=== PATIENT | female | born 1970 | race Caucasian/White ===

== ENCOUNTER → 2019-10-28 | Outpatient (CLI) | payer OTHER ==
[~2019-10-28] MED LIST: ATEN-155 PO; CYCL10TA9 PO; GLPZ5T PO; LEVE1U SQ; NAPR-1071 PO; NAPR550T PO; PRM25T PO; SITA100T PO
--- NOTE | 2019-10-28 13:12 | Diagnostic Imaging Report ---
INDICATION: Left breast lumps. Comparison is made with prior mammogram from 03/24/2014 and 03/18/2013. 2-D and 3-D bilateral diagnostic mammography was performed with CAD. BB markers were placed at the area of palpable abnormality in the upper and outer aspect of the left breast. Scattered fibroglandular densities are identified bilaterally. The parenchymal pattern is stable. No mass or malignant appearing microcalcifications are seen. Axillae are unremarkable. IMPRESSION: BI-RADS 0 No mammographic features suspicious for malignancy are identified. Sonographic interrogation of the areas of palpable abnormality in the left breast is recommended and will be performed today. ACR BI-RADS Category 0: Incomplete. (Needs additional imaging evaluation). Result letter will be mailed to the patient. Note: At least 10% of breast cancer is not imaged by mammography. Dictated by: Dictated on workstation # [id number]
--- NOTE | 2019-10-28 13:53 | Diagnostic Imaging Report ---
INDICATION: Palpable lump, left breast. CORRELATION is made with diagnostic mammogram earlier the same day. Sonographic interrogation of 2 separate regions of lump in the left breast was performed. Both are laterally located. The retroareolar region was also evaluated. No sonographic abnormality is seen. No solid or cystic mass is detected. IMPRESSION: BI-RADS Category 1. No sonographic abnormality is detected. ACR BI-RADS Category 1: Negative. Result letter will be mailed to the patient. Note: At least 10% of breast cancer is not imaged by mammography. Dictated by: Dictated on workstation # [id number]
== END ==
LOC: RAD 12:14
PROVIDERS: ATTEND Nurse Practitioner Community Health
DX: N63.20 Unspecified lump in the left breast, unspecified quadrant (principal)
CPT/HCPCS: 76642; 77066

== ENCOUNTER 2019-11-01 20:16 | Emergency (ER) | payer SELFPAY ==
[~2019-11-01] VITALS: Ht 160 cm; Wt 89.8 kg
[~2019-11-01 20:16] MED LIST changes: -NAPR-1071 PO
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
--- OUTSIDE RECORDS SUMMARY | 2019-11-01 20:24 | XMS REPORT ---
Author Author Nyasia GALDAMEZ Organization [facility] Address [address] [place] [address] Care Team Providers Care Anesthetic Assistant Name Role Phone FADIA GALDAMEZ Unavailable PROBLEMS Type Condition ICD9-CM Code PLV84-KE Code Onset Dates Condition S tatus SNOMED Code Problem Grief reaction F43.21 Active 45866 5009 Problem Hyperlipidemia E78.5 Active 22725 004 Problem Type 2 diabetes mellitus without complications E11 .9 Active 79679231 Problem Essential hypertension I10 Active [id number] ALLERGIES No Information ENCOUNTERS Encounter Location Date Diagnosis [place] [address] [address] Oct, [facility] [address] [address] Sep, [facility] [address] [address] Sep, Breast pain, left N64.4 and Type 2 diabe yoanna mellitus without complications E11.9 [place] [address] [address] Sep, [facility] [address] [address] Sep, [facility] [address] [address] 07 Sep, 2019 Vaginal irritation N89.8 and Screening f or cervical cancer Z12.4 [place] [address] [address] Jul, [place] [address] [address] Jun, Encounter for immunization Z23 [place] [address] [address] Mar, Type 2 diabetes mellitus without complic ations E11.9 [place] [address] [address] December, Insect bite (nonvenomous), left thigh, i nitial encounter S70.362A ; Local infection of the skin and subcutaneous tissue, unspecified L08.9 and Bitten or stung by nonvenomous insect and other nonvenomous arthropods, initial encounter W57.XXXA [place] [address] [address] December, [place] [address] [address] Nov, [place] [address] [address] Nov, [place] [address] [address] Oct, URI (upper respiratory infection) J06.9 ; Type 2 diabetes mellitus without complications E11.9 and Hyperlipidemia E78.5 [place] [address] [address] Aug, [place] [address] [address] Jun, Acute nasopharyngitis J00 [place] [address] [address] May, Encounter for immunization Z23 [place] [address] [address] Apr, [place] [address] [address] Apr, Type 2 diabetes mellitus without complic ations E11.9 [place] [address] [address] Apr, Type 2 diabetes mellitus without complic ations E11.9 ; Grief reaction F43.21 and Essential hypertension I10 [place] [address] [place] [id number] [place] [address] Mar, Type 2 diabetes mellitus without complic ations E11.9 [facility] [address] [id number] [place] [address] Mar, Type 2 diabetes mellitus without complic ations E11.9 [facility] [address] [place] [address] [id number] [place] [address] Feb, [facility] [address] [place] [id number] [place] [address] Jan, [facility] [address] [place] [address] [id number] [place] [address] Nov, Type 2 diabetes mellitus without complic ations E11.9 [facility] [address] [place] [address] [id number] [place] [address] Oct, [facility] [address] [place] [address] [id number] [place] [address] Oct, Labia irritation N90.89 [facility] [address] [id number] [place] [address] Sep, [facility] [address] [place] [address] [id number] [place] [address] Sep, [facility] [address] [address] [id number] [place] [address] Sep, [facility] [address] [id number] [place] [address] Aug, [facility] [address] [place] [address] [id number] [place] [address] Jul, [facility] [address] [place] [address] [id number] [place] [address] Jul, [facility] [address] [address] [id number] [place] [address] Mar, Type 2 diabetes mellitus without complic ations E11.9 ; Acute pain of right knee M25.561 and Essential hypertension I10 [facility] [address] [address] Mar, [place] [address] [address] Mar, Dysuria R30.0 [place] [address] [address] December, [place] [address] [address] Nov, [place] [address] [address] Nov, Dental examination Z01.20 [place] [address] [address] Nov, Dental examination Z01.20 [place] [address] [address] Nov, Non-intractable vomiting with nausea, un specified vomiting type R11.2 ; Arthralgia, unspecified joint M25.50 ; Fever, unspecified fever cause R50.9 ; Type 2 diabetes mellitus without complications E11.9 and Tooth pain K08.89 [place] [address] [address] Nov, Type 2 diabetes mellitus without complic ations E11.9 [place] [address] [address] Nov, Type 2 diabetes mellitus without complic ations E11.9 and Bronchitis J40 [place] [address] [address] Oct, Type 2 diabetes mellitus without complic ations E11.9 [place] [address] [address] Jul, [place] [address] [address] Jul, Dysuria R30.0 ; Hematuria R31.9 and Vagi nal pain R10.2 [place] [address] [address] Jul, Dysuria R30.0 ; Vaginal discharge N89.8 and Low back strain, initial encounter S39.012A [facility] [address] [place] [id number] [place] [address] Jun, Bacterial conjunctivitis of right eye H1 0.9 ; Sore throat J02.9 and Acute non-recurrent maxillary sinusitis J01.00 [facility] [address] [place] [id number] [place] [address] Jun, [facility] [address] [address] May, [facility] [address] [address] Apr, [facility] [address] [address] Apr, [facility] [address] [address] Apr, [facility] [address] [place] [id number] [place] [address] Apr, Type 2 diabetes mellitus without complic ations E11.9 [facility] [address] [place] [id number] [place] [address] Mar, [facility] [address] [place] [id number] [place] [address] Feb, Bronchitis J40 [facility] [address] [address] [id number] [place] [address] Feb, Bronchitis J40 [facility] [address] [place] [id number] [place] [address] Feb, Type 2 diabetes mellitus without complic ations E11.9 [facility] [address] [place] [id number] [place] [address] Feb, [facility] [address] [address] [id number] [place] [address] Feb, [facility] [address] [place] [address] Feb, Type 2 diabetes mellitus without complic ations E11.9 and Dysuria R30.0 [place] [address] [place] [id number] [place] [address] Jan, Type 2 diabetes mellitus without complic ations E11.9 [place] [address] [address] 14 Jan, 2016 Type 2 diabetes mellitus without complic ations E11.9 [place] [address] [address] December, Type 2 diabetes mellitus without complic ations E11.9 [place] [address] [address] Nov, Type 2 diabetes mellitus without complic ations E11.9 [place] [address] [address] Oct, Type 2 diabetes mellitus without complic ations E11.9 ; Fever R50.9 ; Myalgia M79.1 and Cough R05 [place] [address] [address] 15 Sep, 2015 Dysuria R30.0 and Cystitis N30.90 [place] [address] [address] Sep, [place] [address] [address] Sep, [facility] [address] [id number] [place] [id number] Aug, Dental examination Z01.20 [place] [address] [address] Aug, Type 2 diabetes mellitus without complic ations E11.9 [place] [address] [address] 07 Jul, 2015 Dysfunction of left eustachian tube H69. 82 [place] [address] [place] [address] [place] [address] Jun, [facility] [address] [address] Jun, Cellulitis L03.90 [facility] [address] [address] Jun, [facility] [address] [address] Jun, [facility] [address] [address] Jun, [place] [address] [address] May, Dermatofibroma of ankle, right D23.71 [place] [address] [address] May, [place] [address] [address] Apr, Diabetes 250.00 and 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 [place] [address] [address] Apr, [place] [address] [address] Apr, [place] [address] [address] Apr, Diabetes 250.00 ; Influenza vaccine admi nistered V04.81 and Allergic rhinitis 477.9 [place] [address] [address] Mar, [place] [address] [address] Jan, [facility] [address] [address] Jan, DM w/o complication type II 250.00 [place] [address] [address] December, DM w/o complication type II 250.00 ; Stephen caneal spur 726.73 ; Vaginitis due to Amanda 112.1 and Onychomycosis 110.1 [facility] [address] [address] 30 Nov, 2014 Amanda infection of genital region 112. 2 [facility] [address] [address] 14 Nov, 2014 [facility] [address] [address] Nov, [facility] [address] [address] Oct, [facility] [address] [address] Oct, [facility] [address] [address] Sep, [facility] [address] [address] Sep, [facility] [address] [address] Jul, [facility] [address] [address] Jul, [facility] [address] [address] Jun, [facility] [address] [address] Jun, [facility] [address] [address] Jun, [facility] [address] [address] Jun, [facility] [address] [address] May, [facility] [address] [address] May, [facility] [address] [id number] [place] [address] May, [facility] [address] [facility] [id number] [place] [address] May, [facility] [address] [facility] [id number] [place] [address] Apr, [facility] [address] [facility] [id number] [place] [address] Apr, [facility] [address] [facility] [id number] [place] [address] Apr, [facility] [address] [facility] [id number] [place] [address] Apr, [facility] [address] [id number] [place] [address] Mar, [facility] [address] [id number] [place] [address] Mar, [facility] [address] [id number] [place] [address] Mar, [facility] [address] [id number] [place] [address] Mar, [facility] [address] [id number] [place] [address] Mar, [facility] [address] [id number] [place] [address] Mar, [facility] [address] [id number] [place] [address] Mar, [facility] [address] [facility] [id number] [place] [address] Mar, [facility] [address] [id number] [place] [address] Mar, [facility] [address] [id number] [place] [address] Mar, [facility] [address] [id number] [place] [address] Mar, [facility] [address] [id number] [place] [address] Mar, [facility] [address] [facility] [id number] [place] [address] Feb, [facility] [address] [facility] [id number] [place] [address] Feb, [facility] [address] [id number] [place] [address] Jan, [facility] [address] [facility] [id number] [place] [address] Jan, [facility] [address] [id number] [place] [address] Jan, [facility] [address] [id number] [place] [address] Jan, [facility] [address] [id number] [place] [address] December, [facility] [address] [facility] [id number] [place] [address] December, [facility] [address] [id number] [place] [address] December, [facility] [address] [id number] [place] [address] December, [facility] [address] [id number] [place] [address] Nov, [facility] [address] [facility] [id number] [place] [address] Nov, [facility] [address] [id number] [place] [address] Nov, [facility] [address] [id number] [place] [address] Nov, [facility] [address] [id number] [place] [address] Nov, [facility] [address] [id number] [place] [address] Nov, [facility] [address] [facility] [id number] [place] [address] Nov, [facility] [address] [id number] [place] [address] Oct, [facility] [address] [id number] [place] [address] Oct, [facility] [address] [id number] [place] [address] Oct, [facility] [address] [id number] [place] [address] Oct, [facility] [address] [id number] [place] [address] Oct, [facility] [address] [id number] [place] [address] Oct, [facility] [address] [id number] [place] [address] Oct, [facility] [address] [id number] [place] [address] Sep, [facility] [address] [id number] [place] [address] Sep, [facility] [address] [id number] [place] [address] Sep, [facility] [address] [id number] [place] [address] Sep, [facility] [address] [id number] [place] [address] Aug, [facility] [address] [id number] [place] [address] Aug, [facility] [address] [id number] [place] [address] Aug, [facility] [address] [id number] [place] [address] Aug, [facility] [address] [id number] [place] [address] Jul, [facility] [address] [id number] [place] [address] Jul, [facility] [address] [id number] [place] [address] Apr, [facility] [address] [id number] [place] [address] Apr, [facility] [address] [id number] [place] [address] Mar, [facility] [address] [id number] [place] [address] Mar, [facility] [address] [id number] [place] [address] Mar, [facility] [address] [id number] [place] [address] Mar, [facility] [address] [id number] [place] [address] Mar, [facility] [address] [id number] [place] [address] Mar, [facility] [address] [id number] [place] [address] Mar, [facility] [address] [id number] [place] [address] Mar, [facility] [address] [id number] [place] [address] Mar, [facility] [address] [id number] [place] [address] Mar, [facility] [address] [id number] [place] [address] Feb, [facility] [address] [id number] [place] [address] Feb, [facility] [address] [id number] [place] [address] 18 Feb, 2013 [facility] [address] [id number] [place] [address] Feb, [facility] [address] [id number] [place] [address] Jan, [facility] [address] [id number] [place] [address] Nov, [facility] [address] [id number] [place] [address] 16 Nov, 2012 [facility] [address] [id number] [place] [address] Nov, [facility] [address] [id number] [place] [address] Nov, [facility] [address] [id number] [place] [address] Oct, [facility] [address] [id number] [place] [address] Sep, [facility] [address] [id number] [place] [address] Sep, [facility] [address] [id number] [place] [address] Aug, [facility] [address] [id number] [place] [address] Jul, [facility] [address] [id number] [place] [address] Jul, [facility] [address] [id number] [place] [address] May, [facility] [address] [id number] [place] [address] May, [facility] [address] [id number] [place] [address] May, [facility] [address] [id number] [place] [address] May, [facility] [address] [id number] [place] [address] Apr, [facility] [address] [id number] [place] [address] Mar, [facility] [address] [id number] [place] [address] Mar, [facility] [address] [id number] [place] [address] Mar, [facility] [address] [id number] [place] [address] Mar, [facility] [address] [id number] [place] [address] Mar, [facility] [address] [id number] [place] [address] Mar, [facility] [address] [id number] [place] [address] Mar, [facility] [address] [id number] [place] [address] Mar, [facility] [address] [id number] [place] [address] Feb, [facility] [address] [id number] [place] [address] Feb, [facility] [address] [id number] [place] [address] Jan, [facility] [address] [id number] [place] [address] December, [facility] [address] [id number] [place] [address] December, [facility] [address] [id number] [place] [address] Nov, [facility] [address] [id number] [place] [address] Nov, [facility] [address] [id number] [place] [address] Nov, [facility] [address] [id number] [place] [address] 10 Nov, 2011 [facility] [address] [id number] [place] [address] Oct, [facility] [address] [id number] [place] [address] 29 Sep, 2011 [facility] [address] [id number] [place] [address] Sep, [facility] [address] [id number] [place] [address] Sep, [facility] [address] [id number] [place] [address] 17 Sep, 2011 [facility] [address] [id number] [place] [address] 16 Sep, 2011 [facility] [address] [id number] [place] [address] Sep, [facility] [address] [id number] [place] [address] Sep, [facility] [address] [id number] [place] [address] Sep, [facility] [address] [id number] [place] [address] Aug, [facility] [address] [id number] [place] [address] Jul, [facility] [address] [id number] [place] [address] Jul, [facility] [address] [id number] [place] [address] Jul, [facility] [address] [id number] [place] [address] Jun, [facility] [address] [id number] [place] [address] Jul, [facility] [address] [id number] [place] [address] Jul, [facility] [id number] [place] [address] Jul, [facility] [id number] [place] [address] Jul, [facility] [id number] [place] [address] Jul, [facility] [id number] [place] [address] May, [facility] [address] [address] May, [facility] [address] [address] May, [facility] [id number] [place] [address] Apr, [facility] [id number] [place] [address] Jun, [facility] [id number] [place] [address] Jun, [facility] [id number] [place] [address] May, [facility] [address] [place] [id number] [place] [address] Jan, IMMUNIZATIONS No Known Immunizations SOCIAL HISTORY Never Assessed REASON FOR VISIT PLAN OF CARE VITAL SIGNS Height 63 in 2013-09-17 Weight 196.1 lbs 2013-09-17 Temperature 97.1 degrees Fahrenheit 2013-09-17 Heart Rate 74 bpm 2013-09-17 Respiratory Rate 18 2013-09-17 Blood pressure systolic 112 mmHg 2013-09-17 Blood pressure diastolic 74 mmHg 2013-09-17 MEDICATIONS Unknown Medications RESULTS No Results PROCEDURES Procedure Date Ordered Result Body Site URINALYSIS, AUTO, W/O SCOPE Sep 17, 2013 INSTRUCTIONS MEDICATIONS ADMINISTERED No Known Medications [...]
--- OUTSIDE RECORDS SUMMARY | 2019-11-01 20:24 | XMS REPORT ---
Author Author Nyasia RUIZ Organization [facility] Address [address] [place] [address] Care Team Providers Care Financial Services Associate Name Role Phone IRVIN RUIZ Unavailable PROBLEMS Type Condition ICD9-CM Code CYT75-XC Code Onset Dates Condition S tatus SNOMED Code Problem Grief F43.21 Active 747831112 Problem Abnormal mammogram of left breast R92.8 Active 216184153 Problem Type 2 diabetes mellitus without complications E11 .9 Active 11753130 Problem Essential hypertension I10 Active 17860646 Problem Hyperlipidemia E78.5 Active 36254 004 ALLERGIES No Information ENCOUNTERS Encounter Location Date Diagnosis [place] [address] [address] 08 Jan, 2020 [place] [address] [address] Oct, Type 2 diabetes mellitus without complic ations E11.9 [place] [address] [address] 09 Oct, 2019 Type 2 diabetes mellitus without complic ations E11.9 ; Abnormal mammogram of left breast R92.8 and Grief F43.21 [facility] [address] [address] 05 Oct, 2019 [facility] [address] [facility] [id number] [place] [address] Sep, Dysuria R30.0 and Vaginal ir ritation N89.8 [facility] [address] [address] Sep, [facility] [address] [address] Sep, Breast pain, left N64.4 and Type 2 diabe yoanna mellitus without complications E11.9 [place] [address] [address] 12 Sep, 2019 [place] [address] [address] 11 Sep, 2019 [place] [address] [address] 07 Sep, 2019 Vaginal irritation N89.8 and Screening f or cervical cancer Z12.4 [place] [address] [address] Jul, [place] [address] [address] Jun, Encounter for immunization Z23 [place] [address] [address] Mar, Type 2 diabetes mellitus without complic ations E11.9 [place] [address] [address] December, Insect bite (nonvenomous), left thigh, i nitial encounter S70.362A ; Local infection of the skin and subcutaneous tissue, unspecified L08.9 and Bitten or stung by nonvenomous insect and other nonvenomous arthropods, initial encounter W57.XXXA [place] [address] [address] December, [place] [address] [address] Nov, [place] [address] [address] Nov, [place] [address] [address] Oct, URI (upper respiratory infection) J06.9 ; Type 2 diabetes mellitus without complications E11.9 and Hyperlipidemia E78.5 [place] [address] [address] Aug, [facility] [id number] [place] [address] Jun, Acute nasopharyngitis J00 [facility] [address] [address] May, Encounter for immunization Z23 [facility] [address] [address] Apr, [facility] [address] [address] Apr, Type 2 diabetes mellitus without complic ations E11.9 [place] [address] [address] Apr, Type 2 diabetes mellitus without complic ations E11.9 ; Grief reaction F43.21 and Essential hypertension I10 [place] [address] [address] Mar, Type 2 diabetes mellitus without complic ations E11.9 [facility] [address] [address] Mar, Type 2 diabetes mellitus without complic ations E11.9 [place] [address] [address] Feb, [facility] [address] [address] Jan, [facility] [address] [address] Nov, Type 2 diabetes mellitus without complic ations E11.9 [facility] [address] [address] Oct, [facility] [address] [address] Oct, Labia irritation N90.89 [facility] [address] [address] Sep, [facility] [address] [address] Sep, [place] [address] [address] Sep, [place] [address] [address] Aug, [place] [address] [address] Jul, [place] [address] [address] Jul, [place] [address] [address] Mar, Type 2 diabetes mellitus without complic ations E11.9 ; Acute pain of right knee M25.561 and Essential hypertension I10 [place] [address] [address] Mar, [place] [address] [address] Mar, Dysuria R30.0 [place] [address] [address] December, [place] [address] [address] Nov, [place] [address] [address] Nov, Dental examination Z01.20 [place] [address] [address] Nov, Dental examination Z01.20 [place] [address] [address] Nov, Non-intractable vomiting with nausea, un specified vomiting type R11.2 ; Arthralgia, unspecified joint M25.50 ; Fever, unspecified fever cause R50.9 ; Type 2 diabetes mellitus without complications E11.9 and Tooth pain K08.89 [place] [address] [address] Nov, Type 2 diabetes mellitus without complic ations E11.9 [facility] [address] [address] Nov, Type 2 diabetes mellitus without complic ations E11.9 and Bronchitis J40 [place] [address] [address] Oct, Type 2 diabetes mellitus without complic ations E11.9 [place] [address] [address] Jul, [place] [address] [address] Jul, Dysuria R30.0 ; Hematuria R31.9 and Vagi nal pain R10.2 [place] [address] [address] Jul, Dysuria R30.0 ; Vaginal discharge N89.8 and Low back strain, initial encounter S39.012A [place] [address] [address] Jun, Bacterial conjunctivitis of right eye H1 0.9 ; Sore throat J02.9 and Acute non-recurrent maxillary sinusitis J01.00 [place] [address] [address] Jun, [place] [address] [address] May, [facility] [address] [address] Apr, [facility] [address] [address] 14 Apr, 2016 [place] [address] [address] Apr, [place] [address] [address] Apr, Type 2 diabetes mellitus without complic ations E11.9 [place] [address] [place] [id number] [place] [address] Mar, [facility] [address] [address] Feb, Bronchitis J40 [facility] [address] [address] Feb, Bronchitis J40 [facility] [address] [address] Feb, Type 2 diabetes mellitus without complic ations E11.9 [place] [address] [address] Feb, [place] [address] [address] Feb, [place] [address] [address] Feb, Type 2 diabetes mellitus without complic ations E11.9 and Dysuria R30.0 [place] [address] [address] Jan, Type 2 diabetes mellitus without complic ations E11.9 [place] [address] [address] Jan, Type 2 diabetes mellitus without complic ations E11.9 [place] [address] [address] December, Type 2 diabetes mellitus without complic ations E11.9 [place] [address] [address] Nov, Type 2 diabetes mellitus without complic ations E11.9 [place] [address] [address] Oct, Type 2 diabetes mellitus without complic ations E11.9 ; Fever R50.9 ; Myalgia M79.1 and Cough R05 [place] [address] [address] Sep, Dysuria R30.0 and Cystitis N30.90 [facility] [address] [address] Sep, [facility] [address] [address] Sep, [facility] [address] [id number] [place] [id number] Aug, Dental examination Z01.20 [facility] [address] [address] Aug, Type 2 diabetes mellitus without complic ations E11.9 [place] [address] [address] Jul, Dysfunction of left eustachian tube H69. 82 [place] [address] [address] Jun, [facility] [address] [address] Jun, Cellulitis L03.90 [facility] [address] [address] Jun, [place] [address] [address] Jun, [place] [address] [address] Jun, [facility] [address] [address] May, Dermatofibroma of ankle, right D23.71 [facility] [address] [address] May, [place] [address] [address] Apr, Diabetes 250.00 and 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 [place] [address] [address] Apr, [facility] [address] [place] [id number] [place] [address] Apr, [facility] [address] [address] Apr, Diabetes 250.00 ; Influenza vaccine admi nistered V04.81 and Allergic rhinitis 477.9 [facility] [address] [address] Mar, [facility] [address] [address] Jan, [facility] [address] [address] Jan, DM w/o complication type II 250.00 [place] [address] [address] December, DM w/o complication type II 250.00 ; Stephen caneal spur 726.73 ; Vaginitis due to Amanda 112.1 and Onychomycosis 110.1 [place] [address] [address] 30 Nov, 2014 Amanda infection of genital region 112. 2 [place] [address] [address] 14 Nov, 2014 [facility] [address] [address] Nov, [place] [address] [address] Oct, [facility] [address] [address] Oct, [facility] [address] [address] Sep, [facility] [address] [address] Sep, [facility] [address] [address] Jul, [facility] [address] [id number] [place] [address] Jul, [facility] [address] [id number] [place] [address] Jun, [facility] [address] [id number] [place] [address] Jun, [facility] [address] [id number] [place] [address] Jun, [facility] [address] [id number] [place] [address] Jun, [facility] [address] [id number] [place] [address] May, [facility] [address] [id number] [place] [address] May, [facility] [address] [id number] [place] [address] May, [facility] [address] [id number] [place] [address] May, [facility] [address] [id number] [place] [address] Apr, [facility] [address] [id number] [place] [address] Apr, [facility] [address] [id number] [place] [address] Apr, [facility] [address] [id number] [place] [address] Apr, [facility] [address] [id number] [place] [address] Mar, [facility] [address] [id number] [place] [address] Mar, [facility] [address] [id number] [place] [address] Mar, [facility] [address] [id number] [place] [address] Mar, [facility] [address] [facility] [id number] [place] [address] Mar, [facility] [address] [facility] [id number] [place] [address] Mar, [facility] [address] [id number] [place] [address] Mar, [facility] [address] [id number] [place] [address] Mar, [facility] [address] [facility] [id number] [place] [address] Mar, [facility] [address] [id number] [place] [address] Mar, [facility] [address] [id number] [place] [address] Mar, [facility] [address] [id number] [place] [address] Mar, [facility] [address] [id number] [place] [address] Feb, [facility] [address] [id number] [place] [address] Feb, [facility] [address] [id number] [place] [address] Jan, [facility] [address] [id number] [place] [address] Jan, [facility] [address] [id number] [place] [address] Jan, [facility] [address] [id number] [place] [address] Jan, [facility] [address] [id number] [place] [address] December, [facility] [address] [id number] [place] [address] December, [facility] [address] [id number] [place] [address] December, [facility] [address] [facility] [id number] [facility] [place] [address] December, [facility] [address] [facility] [id number] [facility] [place] [address] Nov, [facility] [address] [id number] [facility] [place] [address] Nov, [facility] [address] [facility] [id number] [facility] [place] [address] Nov, [facility] [address] [facility] [id number] [facility] [place] [address] Nov, [facility] [address] [id number] [place] [address] Nov, [facility] [address] [id number] [facility] [place] [address] Nov, [facility] [address] [id number] [place] [address] Nov, [facility] [address] [facility] [id number] [facility] [place] [address] Oct, [facility] [address] [id number] [place] [address] Oct, [facility] [address] [id number] [place] [address] Oct, [facility] [address] [id number] [place] [address] Oct, [facility] [address] [facility] [id number] [facility] [place] [address] Oct, [facility] [address] [id number] [place] [address] Oct, [facility] [address] [id number] [place] [address] Oct, [facility] [address] [id number] [place] [address] Sep, [facility] [address] [id number] [place] [address] 07 Sep, 2013 [facility] [address] [id number] [place] [address] Sep, [facility] [address] [id number] [place] [address] Sep, [facility] [address] [id number] [place] [address] Aug, [facility] [address] [id number] [place] [address] Aug, [facility] [address] [id number] [place] [address] Aug, [facility] [address] [id number] [place] [address] Aug, [facility] [address] [id number] [place] [address] Jul, [facility] [address] [id number] [place] [address] Jul, [facility] [address] [id number] [place] [address] Apr, [facility] [address] [id number] [place] [address] Apr, [facility] [address] [id number] [place] [address] Mar, [facility] [address] [id number] [place] [address] Mar, [facility] [address] [id number] [place] [address] Mar, [facility] [address] [id number] [place] [address] Mar, [facility] [address] [id number] [place] [address] Mar, [facility] [address] [id number] [place] [address] Mar, [facility] [address] [facility] [id number] [facility] [place] [address] Mar, [facility] [address] [facility] [id number] [facility] [place] [address] Mar, [facility] [address] [facility] [id number] [facility] [place] [address] Mar, [facility] [address] [id number] [facility] [place] [address] Mar, [facility] [address] [facility] [id number] [facility] [place] [address] Feb, [facility] [address] [id number] [facility] [place] [address] Feb, [facility] [address] [id number] [place] [address] Feb, [facility] [address] [id number] [place] [address] Feb, [facility] [address] [id number] [place] [address] Jan, [facility] [address] [id number] [place] [address] 25 Nov, 2012 [facility] [address] [id number] [place] [address] 16 Nov, 2012 [facility] [address] [id number] [place] [address] 15 Nov, 2012 [facility] [address] [facility] [id number] [place] [address] Nov, [facility] [address] [id number] [place] [address] Oct, [facility] [address] [id number] [place] [address] Sep, [facility] [address] [id number] [place] [address] Sep, [facility] [address] [id number] [place] [address] Aug, [facility] [address] [id number] [place] [address] Jul, [facility] [address] [id number] [place] [address] Jul, [facility] [address] [id number] [place] [address] May, [facility] [address] [id number] [place] [address] May, [facility] [address] [id number] [place] [address] May, [facility] [address] [id number] [place] [address] May, [facility] [address] [id number] [place] [address] Apr, [facility] [address] [id number] [place] [address] Mar, [facility] [address] [id number] [place] [address] Mar, [facility] [address] [id number] [place] [address] Mar, [facility] [address] [id number] [place] [address] Mar, [facility] [address] [id number] [place] [address] Mar, [facility] [address] [id number] [place] [address] Mar, [facility] [address] [id number] [place] [address] Mar, [facility] [address] [id number] [place] [address] Mar, [facility] [address] [id number] [place] [address] Feb, [facility] [address] [id number] [place] [address] 10 Feb, 2012 [facility] [address] [id number] [place] [address] 08 Jan, 2012 [facility] [address] [id number] [place] [address] December, [facility] [address] [id number] [place] [address] December, [facility] [address] [id number] [place] [address] 23 Nov, 2011 [facility] [address] [id number] [place] [address] Nov, [facility] [address] [id number] [place] [address] 18 Nov, 2011 [facility] [address] [id number] [place] [address] Nov, [facility] [address] [id number] [place] [address] Oct, [facility] [address] [id number] [place] [address] 29 Sep, 2011 [facility] [address] [id number] [place] [address] Sep, [facility] [address] [id number] [place] [address] 17 Sep, 2011 [facility] [address] [id number] [place] [address] 17 Sep, 2011 [facility] [address] [id number] [place] [address] 16 Sep, 2011 [facility] [address] [id number] [place] [address] 16 Sep, 2011 [facility] [address] [id number] [place] [address] 15 Sep, 2011 [facility] [address] [id number] [place] [address] 15 Sep, 2011 [facility] [address] [id number] [place] [address] Aug, [facility] [address] [id number] [place] [address] Jul, [facility] [address] [id number] [place] [address] 14 Jul, 2011 [facility] [address] [id number] [place] [address] 14 Jul, 2011 [facility] [address] [id number] [place] [address] Jun, [facility] [address] [id number] [place] [address] Jul, [facility] [address] [id number] [place] [address] Jul, [facility] [address] [id number] [place] [address] 16 Jul, 2010 [facility] [address] [id number] [place] [address] Jul, [facility] [address] [id number] [place] [address] Jul, [facility] [address] [id number] [place] [address] May, [facility] [address] [id number] [place] [address] May, [facility] [address] [id number] [place] [address] May, [facility] [address] [id number] [place] [address] 15 Apr, 2010 [facility] [address] [id number] [place] [address] Jun, [facility] [address] [id number] [place] [address] Jun, [facility] [address] [facility] [id number] [place] [address] May, [facility] [address] [facility] [id number] [place] [address] Jan, IMMUNIZATIONS No Known Immunizations SOCIAL HISTORY Never Assessed REASON FOR VISIT PLAN OF CARE VITAL SIGNS MEDICATIONS Unknown Medications RESULTS No Results PROCEDURES No Known procedures INSTRUCTIONS MEDICATIONS ADMINISTERED No Known Medications MEDICAL (GENERAL) HISTORY Type Description Date Medical History heart murmur Medical History irregular heart beat Medical History muscle around heart is too thick Medical History chronic bronchitis Medical History diabetes mellitus Surgical History tubal ligation 1993 Surgical History dilatation and curettage 1992 Surgical History tumor removal left leg Hospitalization History [facility] 03/2012
--- OUTSIDE RECORDS SUMMARY | 2019-11-01 20:24 | XMS REPORT ---
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 Name Role Phone JULIETTE SO Unavailable PROBLEMS Type Condition ICD9-CM Code RGP39-VU Code Onset Dates Condition S tatus SNOMED Code Problem Grief reaction F43.21 Active 92422 5009 Problem Hyperlipidemia E78.5 Active 04004 004 Problem Type 2 diabetes mellitus without complications E11 .9 Active 46115600 Problem Essential hypertension I10 Active [id number] ALLERGIES No Information ENCOUNTERS Encounter Location Date Diagnosis [place] [address] [address] Oct, [facility] [place] [address] [address] Sep, [facility] [place] [address] [address] Sep, Breast pain, left N64.4 and Type 2 diabe yoanna mellitus without complications E11.9 [facility] [place] [address] [address] Sep, [facility] [place] [address] [address] Sep, [facility] [place] [address] [address] 07 Sep, 2019 Vaginal irritation N89.8 and Screening f or cervical cancer Z12.4 [place] [address] [address] Jul, [place] [address] [address] Jun, Encounter for immunization Z23 [place] [address] [address] Mar, Type 2 diabetes mellitus without complic ations E11.9 [place] [address] [address] December, Insect bite (nonvenomous), left thigh, i nitial encounter S70.362A ; Local infection of the skin and subcutaneous tissue, unspecified L08.9 and Bitten or stung by nonvenomous insect and other nonvenomous arthropods, initial encounter W57.XXXA [place] [address] [address] December, [place] [address] [address] Nov, [place] [address] [address] Nov, [place] [address] [address] Oct, URI (upper respiratory infection) J06.9 ; Type 2 diabetes mellitus without complications E11.9 and Hyperlipidemia E78.5 [place] [address] [address] Aug, [place] [address] [address] Jun, Acute nasopharyngitis J00 [place] [address] [address] May, Encounter for immunization Z23 [place] [address] [address] Apr, [place] [address] [address] Apr, Type 2 diabetes mellitus without complic ations E11.9 [place] [address] [address] Apr, Type 2 diabetes mellitus without complic ations E11.9 ; Grief reaction F43.21 and Essential hypertension I10 [facility] [place] [address] [place] [id number] [place] [address] Mar, Type 2 diabetes mellitus without complic ations E11.9 [facility] [place] [address] [place] [id number] [place] [address] Mar, Type 2 diabetes mellitus without complic ations E11.9 [facility] [place] [address] [address] Feb, [facility] [place] [address] [place] [id number] [place] [address] Jan, [facility] [place] [address] [address] Nov, Type 2 diabetes mellitus without complic ations E11.9 [facility] [place] [address] [address] Oct, [facility] [place] [address] [address] Oct, Labia irritation N90.89 [facility] [place] [address] [address] Sep, [facility] [place] [address] [address] Sep, [facility] [place] [address] [address] Sep, [facility] [place] [address] [address] Aug, [facility] [place] [address] [place] [id number] [place] [address] Jul, [facility] [place] [address] [address] Jul, [facility] [place] [address] [address] Mar, Type 2 diabetes mellitus without complic ations E11.9 ; Acute pain of right knee M25.561 and Essential hypertension I10 [place] [address] [address] Mar, [place] [address] [address] Mar, Dysuria R30.0 [place] [address] [address] December, [place] [address] [address] Nov, [place] [address] [address] Nov, Dental examination Z01.20 [place] [address] [address] Nov, Dental examination Z01.20 [place] [address] [address] Nov, Non-intractable vomiting with nausea, un specified vomiting type R11.2 ; Arthralgia, unspecified joint M25.50 ; Fever, unspecified fever cause R50.9 ; Type 2 diabetes mellitus without complications E11.9 and Tooth pain K08.89 [place] [address] [address] Nov, Type 2 diabetes mellitus without complic ations E11.9 [place] [address] [address] Nov, Type 2 diabetes mellitus without complic ations E11.9 and Bronchitis J40 [place] [address] [address] Oct, Type 2 diabetes mellitus without complic ations E11.9 [place] [address] [address] Jul, [place] [address] [address] Jul, Dysuria R30.0 ; Hematuria R31.9 and Vagi nal pain R10.2 [place] [address] [place] [id number] [place] [address] Jul, Dysuria R30.0 ; Vaginal discharge N89.8 and Low back strain, initial encounter S39.012A [facility] [place] [address] [place] [id number] [place] [address] Jun, Bacterial conjunctivitis of right eye H1 0.9 ; Sore throat J02.9 and Acute non-recurrent maxillary sinusitis J01.00 [facility] [place] [address] [place] [id number] [place] [address] Jun, [facility] [place] [address] [address] May, [facility] [place] [address] [address] Apr, [facility] [place] [address] [address] Apr, [facility] [place] [address] [address] Apr, [facility] [place] [address] [address] Apr, Type 2 diabetes mellitus without complic ations E11.9 [facility] [place] [address] [place] [id number] [place] [address] Mar, [facility] [place] [address] [address] Feb, Bronchitis J40 [facility] [place] [address] [address] Feb, Bronchitis J40 [facility] [place] [address] [address] Feb, Type 2 diabetes mellitus without complic ations E11.9 [facility] [place] [address] [place] [id number] [place] [address] Feb, [facility] [place] [address] [address] Feb, [place] [address] [address] Feb, Type 2 diabetes mellitus without complic ations E11.9 and Dysuria R30.0 [place] [address] [address] Jan, Type 2 diabetes mellitus without complic ations E11.9 [place] [address] [address] Jan, Type 2 diabetes mellitus without complic ations E11.9 [place] [address] [address] December, Type 2 diabetes mellitus without complic ations E11.9 [place] [address] [address] Nov, Type 2 diabetes mellitus without complic ations E11.9 [place] [address] [address] Oct, Type 2 diabetes mellitus without complic ations E11.9 ; Fever R50.9 ; Myalgia M79.1 and Cough R05 [place] [address] [address] 15 Sep, 2015 Dysuria R30.0 and Cystitis N30.90 [place] [address] [address] Sep, [place] [address] [address] Sep, [facility] [address] [id number] [place] [id number] Aug, Dental examination Z01.20 [place] [address] [address] Aug, Type 2 diabetes mellitus without complic ations E11.9 [place] [address] [address] Jul, Dysfunction of left eustachian tube H69. 82 [facility] [place] [address] [address] Jun, [facility] [place] [address] [address] Jun, Cellulitis L03.90 [facility] [place] [address] [address] Jun, [facility] [place] [address] [address] Jun, [facility] [place] [address] [address] Jun, [place] [address] [address] May, Dermatofibroma of ankle, right D23.71 [place] [address] [address] May, [place] [address] [address] Apr, Diabetes 250.00 and 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 [place] [address] [address] Apr, [place] [address] [address] Apr, [place] [address] [address] Apr, Diabetes 250.00 ; Influenza vaccine admi nistered V04.81 and Allergic rhinitis 477.9 [place] [address] [address] Mar, [place] [address] [address] Jan, [facility] [place] [address] [address] Jan, DM w/o complication type II 250.00 [place] [address] [place] [address] December, DM w/o complication type II 250.00 ; Stephen caneal spur 726.73 ; Vaginitis due to Amanda 112.1 and Onychomycosis 110.1 [facility] [place] [address] [place] [id number] [place] [address] 30 Nov, 2014 Amanda infection of genital region 112. 2 [facility] [place] [address] [address] 14 Nov, 2014 [facility] [place] [address] [address] Nov, [facility] [place] [address] [address] Oct, [facility] [place] [address] [address] Oct, [facility] [place] [address] [address] Sep, [facility] [place] [address] [address] Sep, [facility] [place] [address] [address] Jul, [facility] [place] [address] [address] Jul, [facility] [place] [address] [address] Jun, [facility] [place] [address] [address] Jun, [facility] [place] [address] [address] Jun, [facility] [place] [address] [address] Jun, [facility] [place] [address] [place] [id number] [place] [address] May, [facility] [place] [address] [address] May, [facility] [place] [facility] [address] [id number] [place] [address] May, [facility] [place] [facility] [address] [facility] [id number] [place] [address] May, [facility] [place] [facility] [address] [facility] [id number] [place] [address] Apr, [facility] [place] [facility] [address] [facility] [id number] [place] [address] Apr, [facility] [place] [facility] [address] [facility] [id number] [place] [address] Apr, [facility] [place] [facility] [address] [facility] [id number] [place] [address] Apr, [facility] [place] [facility] [address] [id number] [place] [address] Mar, [facility] [place] [facility] [address] [facility] [id number] [place] [address] Mar, [facility] [place] [facility] [address] [facility] [id number] [place] [address] Mar, [facility] [place] [facility] [address] [facility] [id number] [place] [address] Mar, [facility] [place] [facility] [address] [facility] [id number] [place] [address] Mar, [facility] [place] [facility] [address] [facility] [id number] [place] [address] Mar, [facility] [place] [facility] [address] [facility] [id number] [place] [address] Mar, [facility] [place] [facility] [address] [id number] [place] [address] Mar, [facility] [place] [facility] [address] [facility] [id number] [place] [address] Mar, [facility] [place] [facility] [address] [id number] [place] [address] Mar, [facility] [place] [facility] [address] [id number] [place] [address] Mar, [facility] [place] [facility] [address] [facility] [id number] [place] [address] Mar, [facility] [place] [facility] [address] [facility] [id number] [place] [address] Feb, [facility] [place] [facility] [address] [id number] [place] [address] Feb, [facility] [place] [facility] [address] [facility] [id number] [place] [address] Jan, [facility] [place] [facility] [address] [facility] [id number] [place] [address] Jan, [facility] [place] [facility] [address] [id number] [place] [address] Jan, [facility] [place] [facility] [address] [id number] [place] [address] Jan, [facility] [place] [facility] [address] [id number] [place] [address] December, [facility] [place] [facility] [address] [id number] [place] [address] December, [facility] [place] [facility] [address] [id number] [place] [address] December, [facility] [place] [facility] [address] [id number] [place] [address] December, [facility] [place] [facility] [address] [id number] [place] [address] Nov, [facility] [place] [facility] [address] [id number] [place] [address] Nov, [facility] [place] [facility] [address] [id number] [place] [address] Nov, [facility] [place] [facility] [address] [id number] [place] [address] Nov, [facility] [place] [facility] [address] [id number] [place] [address] Nov, [facility] [place] [facility] [address] [id number] [place] [address] Nov, [facility] [place] [facility] [address] [id number] [place] [address] Nov, [facility] [place] [facility] [address] [id number] [place] [address] Oct, [facility] [place] [facility] [address] [id number] [place] [address] Oct, [facility] [place] [facility] [address] [facility] [id number] [place] [address] Oct, [facility] [place] [facility] [address] [id number] [place] [address] Oct, [facility] [place] [facility] [address] [id number] [place] [address] Oct, [facility] [place] [facility] [address] [id number] [place] [address] Oct, [facility] [place] [facility] [address] [id number] [place] [address] Oct, [facility] [place] [facility] [address] [id number] [place] [address] Sep, [facility] [place] [facility] [address] [id number] [place] [address] 07 Sep, 2013 [facility] [place] [facility] [address] [id number] [place] [address] Sep, [facility] [place] [facility] [address] [id number] [place] [address] Sep, [facility] [place] [facility] [address] [id number] [place] [address] Aug, [facility] [place] [facility] [address] [id number] [place] [address] Aug, [facility] [place] [facility] [address] [id number] [place] [address] Aug, [facility] [place] [facility] [address] [id number] [place] [address] Aug, [facility] [place] [facility] [address] [id number] [place] [address] Jul, [facility] [place] [facility] [address] [id number] [place] [address] Jul, [facility] [place] [facility] [address] [id number] [place] [address] Apr, [facility] [place] [facility] [address] [id number] [place] [address] Apr, [facility] [place] [facility] [address] [id number] [place] [address] Mar, [facility] [place] [facility] [address] [id number] [place] [address] Mar, [facility] [place] [facility] [address] [id number] [place] [address] Mar, [facility] [place] [facility] [address] [id number] [place] [address] Mar, [facility] [place] [facility] [address] [id number] [place] [address] Mar, [facility] [place] [facility] [address] [id number] [place] [address] Mar, [facility] [place] [facility] [address] [id number] [place] [address] Mar, [facility] [place] [facility] [address] [id number] [place] [address] Mar, [facility] [place] [facility] [address] [id number] [place] [address] Mar, [facility] [place] [facility] [address] [id number] [place] [address] Mar, [facility] [place] [facility] [address] [id number] [place] [address] Feb, [facility] [place] [facility] [address] [id number] [place] [address] Feb, [facility] [place] [facility] [address] [id number] [place] [address] Feb, [facility] [place] [facility] [address] [id number] [place] [address] Feb, [facility] [place] [facility] [address] [id number] [place] [address] Jan, [facility] [place] [facility] [address] [id number] [place] [address] Nov, [facility] [place] [facility] [address] [id number] [place] [address] 16 Nov, 2012 [facility] [place] [facility] [address] [id number] [place] [address] Nov, [facility] [place] [facility] [address] [id number] [place] [address] Nov, [facility] [place] [facility] [id number] [place] [address] Oct, [facility] [place] [facility] [id number] [place] [address] Sep, [facility] [place] [facility] [address] [id number] [place] [address] Sep, [facility] [place] [facility] [address] [id number] [place] [address] Aug, [facility] [place] [facility] [id number] [place] [address] Jul, [facility] [place] [facility] [address] [id number] [place] [address] Jul, [facility] [address] [id number] [place] [address] May, [facility] [address] [id number] [place] [address] May, [facility] [address] [id number] [place] [address] May, [facility] [id number] [place] [address] May, [facility] [address] [id number] [place] [address] Apr, [facility] [address] [facility] [id number] [facility] [place] [address] Mar, [facility] [address] [id number] [facility] [place] [address] Mar, [facility] [address] [id number] [facility] [place] [address] Mar, [facility] [address] [facility] [id number] [facility] [place] [address] Mar, [facility] [address] [id number] [place] [address] Mar, [facility] [address] [id number] [place] [address] Mar, [facility] [address] [id number] [place] [address] Mar, [facility] [address] [id number] [place] [address] Mar, [facility] [address] [id number] [place] [address] Feb, [facility] [address] [id number] [place] [address] Feb, [facility] [address] [id number] [place] [address] Jan, [facility] [address] [id number] [place] [address] December, [facility] [address] [id number] [place] [address] December, [facility] [address] [id number] [place] [address] Nov, [facility] [address] [id number] [place] [address] Nov, [facility] [address] [id number] [place] [address] 18 Nov, 2011 [facility] [address] [id number] [place] [address] 10 Nov, 2011 [facility] [address] [id number] [place] [address] Oct, [facility] [id number] [place] [address] 29 Sep, 2011 [facility] [address] [id number] [place] [address] Sep, [facility] [address] [id number] [place] [address] Sep, [facility] [address] [id number] [place] [address] 17 Sep, 2011 [facility] [id number] [place] [address] 16 Sep, 2011 [facility] [id number] [place] [address] 16 Sep, 2011 [facility] [id number] [place] [address] Sep, [facility] [id number] [place] [address] 15 Sep, 2011 [facility] [id number] [place] [address] Aug, [facility] [id number] [place] [address] Jul, [facility] [address] [id number] [place] [address] Jul, [facility] [id number] [place] [address] Jul, [facility] [address] [id number] [place] [address] Jun, [facility] [id number] [place] [address] Jul, [facility] [place] [id number] [place] [address] Jul, [facility] [place] [id number] [place] [address] Jul, [facility] [place] [id number] [place] [address] Jul, [facility] [place] [id number] [place] [address] Jul, [facility] [place] [id number] [place] [address] May, [facility] [place] [address] [address] May, [facility] [place] [facility] [address] [id number] [place] [address] May, [facility] [place] [address] [id number] Apr, [facility] [place] [address] [id number] [place] [address] Jun, [facility] [place] [address] [id number] Jun, [facility] [place] [address] [id number] [place] [address] May, [facility] [place] [address] [id number] Jan, IMMUNIZATIONS No Known Immunizations SOCIAL HISTORY Never Assessed REASON FOR VISIT PLAN OF CARE VITAL SIGNS Height 63 in 2013-09-13 Weight 195.6 lbs 2013-09-13 Temperature 97.9 degrees Fahrenheit 2013-09-13 Heart Rate 76 bpm 2013-09-13 Respiratory Rate 16 2013-09-13 Blood pressure systolic 110 mmHg 2013-09-13 Blood pressure diastolic 78 mmHg 2013-09-13 MEDICATIONS Unknown Medications RESULTS No Results PROCEDURES Procedure Date Ordered Result Body Site INFLUENZA ASSAY W/OPTIC Sep 13, 2013 INSTRUCTIONS MEDICATIONS ADMINISTERED No Known Medications [...]
--- OUTSIDE RECORDS SUMMARY | 2019-11-01 20:24 | XMS REPORT ---
Author Author [employer]. Organization [employer]. Address [address] [address] Care Team Providers Care Electrician Maintenance Name Role Phone ADRIANA BRAND Unavailable Unavailable JOSEPH, IRVIN Unavailable Unavailable JOSEPH, IRVIN Unavailable JOSEPH, IRVIN Unavailable LISBETH OATES Unavailable Unavailable FADIA GALDAMEZ Unavailable Unavailable SAMUEL WEATHERS Unavailable Unavailable KELSEY LE Unavailable Unavailable [facility] Unavailable VU JUAREZ Unavailable JOSEPH, IRVIN Unavailable JOSEPH, IRVIN Unavailable JOSEPH, IRVIN Unavailable JOSEPH, IRVIN Unavailable JOSEPH, IRVIN Unavailable JOSEPH, IRVIN Unavailable JOSEPH, IRVIN Unavailable JOSEPH, IRVIN Unavailable JOSEPH, IRVIN Unavailable JOSEPH, IRVIN Unavailable JOSEPH, IRVIN Unavailable JOSEPH, IRVIN Unavailable JOSEPH, IRVIN Unavailable JOSEPH, IRVIN Unavailable JOSEPH, IRVIN Unavailable JOSEPH, IRVIN Unavailable ADRIANA BRAND Unavailable ADRIANA BRAND Unavailable Migration, Doctor Unavailable Unavailable Migration, Doctor Unavailable Unavailable Migration, Doctor Unavailable Unavailable Migration, Doctor Unavailable Unavailable Migration, Doctor Unavailable Unavailable Migration, Doctor Unavailable Unavailable Migration, Doctor Unavailable Unavailable JOSEPH, IRVIN MODEL DRESSER Unavailable Unavailable Migration, Doctor Unavailable Unavailable Migration, Doctor Unavailable Unavailable JOSEPH, IRVIN Unavailable JOSEPH, IRVIN Unavailable IVANIA Bernard Unavailable Migration, Doctor Unavailable Unavailable JOSEPH, IRVIN Unavailable JOSEPH, IRVIN Unavailable JOSEPH, IRVIN Unavailable JOSEPH, IRVIN Unavailable zzHEIMAN, CANDY Unavailable Migration, Doctor Unavailable Unavailable MARNIE IVERSONIA Unavailable JOSEPH, IRVIN S Unavailable Unavailable zzHEIMAN, CANDY Unavailable JOSEPH, IRVIN Unavailable JOSEPH, IRVIN Unavailable Unavailable Unavailable JOSEPH, IRVIN Unavailable JOSEPH, IRVIN Unavailable JOSEPH, IRVIN Unavailable JOSEPH, IRVIN Unavailable JOSEPH, IRVIN Unavailable JOSEPH, IRVIN Unavailable FADIA GALDAMEZ Unavailable JULIETTE SO Unavailable JOSEPH, IRVIN Unavailable JOSEPH MODEL DRESSER, IRVIN Unavailable Unavailable CHANDLER PARRA APRN Unavailable Unavailable Allergies Normalized Allergy Reported Date of Reaction(s) Care Provider Facility Allergy Type classification allergen Allergy Onset Drug Allergy shrimp shrimp 11-05-2017 - anaphylaxis, IRVIN RUIZ [facility] (3 sources.) allergenic allergenic anaphylaxis [address] [place] [address] Translation: [place] ([address]) [ Shrimp (Diagnostic), Shrimp (Diagnostic)] Food Allergy Shellfish Shrimp product 04-22-2018 - anaphylaxis IRVIN JOSEPH [facility] ([address] source[address] [place] [address] ([address]) Medications Current Medications Medication Ingredient Drug Dose Dates Status Sig Sig Care Class(es) (Normalized) (Original) Provid er no Blood no 10-07-19 Active no Blood no information Glucose information 18 information Glucose name (2 Monitor Monitor (no sources.) System System phone) w/Device w/Device Translation Contour Next s: [ Blood 3 times a Glucose day test 3 Monitor times per System day 8h 27 w/Device] Sep, 2017 Active no Blood no 10-07-19 Active no Blood no information Glucose information 18 information Glucose name (1 source.) Monitor Monitor (no System System phone) w/Device w/Device Translation Contour Next s: [ Blood 3 times a Glucose day test 3 Monitor times per System day 8h 27 w/Device] Sep, 2017 Active no Blood no 10-07-19 Active no Blood no information Glucose information 18 information Glucose name (2 Monitor Monitor (no sources.) System System phone) w/Device w/Device Translation Contour Next s: [ Blood 3 times a Glucose day test 3 Monitor times per System day 8h 27 w/Device] Sep, 2017 Active canaglifloz canaglifloz Sodium-Gluc 100 mg 10-04-19 Active take 1 Invokana 100 no in 100 mg in ose 15 tablet by mg 1 Tablet name oral tablet Translation Cotransport mouth once by Oral (no (1 source.) s: [ er 2 daily in the route 1 time phone ) Invokana Inhibitor morning per day Take 100 mg] in AM Sep, Active cephalexin Cephalexin Cephalospor 500 mg 09-27-19 Active take 1 Keflex 500 no 500 mg oral Translation in 12 capsule by mg take 1 name capsule (1 s: [ Keflex Antibacteri mouth every capsule (500 (no source.) 500 mg] al six hours mg) by oral phone) route every 6 hours for 7 days Sep, Active 0.5 ml dulaglutide GLP-1 Active inject 0.5 Trulicity no dulaglutide Translation Receptor mL by 1.5 MG/0.5ML name 3 mg/ml s: [ Agonist subcutaneous Subcutaneous (no auto-inject Trulicity injection once weekly phone) or (6 0.75 every week Inject 0.5ml sources.) MG/0.5ML, 90 days Trulicity Active 0.75 MG/0.5ML, 0.5 ML dulaglutide 3 MG/ML Auto-Inject or [Trulicity] , Trulicity 1.5 MG/0.5ML, Trulicity 1.5 MG/0.5ML] Active no Trulicit no name inform y 1.5 (no ation MG/0.5ML phone) Subcutan eous once weekly 0.5ml Active Active no Trulicit no name inform y 0.75 (no ation MG/0.5ML phone) Subcutan eous once weekly 0.5 ml Active lovastatin Lovastatin HMG-CoA 40 mg 10-14-19 Active take 1 Lova statin no 40 mg oral Translation Reductase 19 tablet by 40 MG Orall y name tablet (1 s: [ Inhibitor mouth once Once a day 1 (no source.) Lovastatin daily at tablet with phone) 40 MG] dinner the evening meal 24h Oct, Active Completed/Discontinued Medications Medication Ingredient Drug Dose Dates Status Sig Sig Care Class(es) (Normalized) (Original) Provid er acyclovir acyclovir Herpesvirus 400 mg 11-06-19 Suspende take 1 Acyclovir no 400 mg oral Translation Nucleoside 18 - d tablet by 400 m g name tablet (4 s: [ Analog DNA 11-16-19 mouth three orally 3 ( no sources.) Acyclovir Polymerase 18 times daily times a day phone) 400 mg, Inhibitor, one tab 8h Acyclovir Herpes Oct, 400 mg] Simplex 10 days Virus Not-Taking Nucleoside Analog DNA Polymerase Inhibitor, Herpes Zoster Virus Nucleoside Analog DNA Polymerase Inhibitor 400 mg 11-05-2017 Active no Acyclovi no name inform r 400 mg (no ation orally 3 phone) times a day one tab 8h Oct, 10 days Active pseudoephed Pseudoephed alpha-Adren 60 mg 06-23-20 Suspende take 1 SudoGest 60 no rine rine ergic 18 d tablet by mg Orally name hydrochlori Translation Agonist mouth every every 6 hrs (no de 60 mg s: [ six hours as 1 tablet as phone) oral tablet SudoGest 60 needed needed 6h 13 (2 mg] Jun, 2018 5 sources.) days Not-Taking Problems Active Problems Problem Normalized Date of Normalized Normalized Provider Fac ility Classification Problem(s) Problem Problem Problem Sta tus Onset/Resoluti Duration on Adjustment Adjustment Chronic Active IRVIN RUIZ Commu nity disorders (20 disorder with [facility] sources.) depressed mood of [place] Translations: [place] ([address]444) [ - Grief reaction F43.21, Grief reaction, Grief reaction, - Grief reaction F43.21, Grief reaction, Grief, - Grief F43.21] Other Calcaneal spur Episodic Active IRVIN JOSEPH Co mmunity connective Translations: [facility] tissue disease [ - Calcaneal of [place] (20 sources.) spur 726.73, - [place] (56214) Calcaneal spur 726.73] Mycoses (20 Candidiasis of Episodic Active IRVIN JOSEPH Community sources.) other [facility] urogenital of [place] sites [place] ([address]953) Translations: [ - Amanda infection of genital region 112.2, - Onychomycosis 110.1, - Vaginitis due to Amanda 112.1, - Amanda infection of genital region 112.2, - Vaginitis due to Amanda 112.1, - Onychomycosis 110.1] Other bone Costal Episodic Active IRVIN JOSEPH Communi ty disease and chondritis [address] [place] [address] Center musculoskeleta Translations: of [place] l deformities [ [place] () (20 sources.) Costochondriti s, Costochondriti s] Other lower Cough Episodic Active IRVIN JOSEPH Commun ity respiratory Translations: [facility] disease (20 [ - Cough R05, of [place] sources.) - Cough R05] [place] (04105) Urinary tract Cystitis, Episodic Active IRVIN JOSEPH Com munity infections (20 unspecified [address] [facility] sources.) without of [place] hematuria [place] (42439) Translations: [ - Cystitis N30.90, - Cystitis N30.90] Hypertension Essential Chronic Active IRVIN JOSEPH Comm unity with (primary) [facility] [facility] complications hypertension of [place] and secondary Translations: [place] (01471) hypertension [ - Essential (7 sources.) hypertension I10] Fever of Fever, Episodic Active IRVIN JOSEPH Communit y unknown origin unspecified [facility] (20 sources.) Translations: of [place] [ - Fever, [place] (53092) unspecified fever cause R50.9, - Fever R50.9, - Fever, unspecified fever cause R50.9, - Fever R50.9] Disorders of Hyperlipidemia Chronic Active [facility] lipid Translations: [address] [facility] metabolism (20 [ of [place] sources.) Hyperlipidemia [place] (95061) , - Hyperlipidemia E78.5] Spondylosis; Lumbago 10-12-2019 - Episodic Active CHANDLER PARRA [facility] Via intervertebral [facility] - disorders; [place] other back (62681) problems (1 source.) Other Myalgia Episodic Active IRVIN JOSEPH Communit y connective Translations: [address] [facility] tissue disease [ - Myalgia of [place] (20 sources.) M79.1, - [place] (20615) Calcaneal spur 726.73, - Myalgia M79.1] Other female Other Episodic Active IRVIN JOSEPH Commu nity genital specified [address] [facility] disorders (20 noninflammator of [place] sources.) y disorders of [place] (44709) vagina Translations: [ - Vaginal discharge N89.8, - Labia irritation N90.89, - Vaginal discharge N89.8, - Vaginal irritation N89.8] Other female Other Episodic Active IRVIN JOSEPH Commu nity genital specified [address] [facility] disorders (20 noninflammator of [place] sources.) y disorders of [place] (83994) vulva and perineum Translations: [ - Labia irritation N90.89, - Labia irritation N90.89] Other Pain in right Episodic Active IRVIN JOSEPH Com munity non-traumatic knee [address] [facility] joint Translations: of [place] disorders (20 [ - Acute pain [place] (35140) sources.) of right knee M25.561, - Acute pain of right knee M25.561] Other Pain in Episodic Active IRVIN JOSEPH Communit y non-traumatic unspecified [address] [place] [address] Center joint joint of [place] disorders (20 Translations: [place] (28696) sources.) [ - Arthralgia, unspecified joint M25.50, - Acute pain of right knee M25.561, - Arthralgia, unspecified joint M25.50] Sprains and Strain of Episodic Active IRVIN JOSEPH Commu nity strains (20 muscle, fascia [address] [facility] sources.) and tendon of of [place] ([address]) initial encounter Translations: [ - Low back strain, initial encounter S39.012A, - Low back strain, initial encounter S39.012A] Past or Other Problems Problem Normalized Date of Normalized Normalized Provider Fac ility Classification Problem(s) Problem Problem Problem Sta tus Onset/Resoluti Duration on External cause Bitten or no information no information Doctor Community codes: stung by [facility] Natural/enviro nonvenomous of [place] nment (13 insect and [place] (72951) sources.) other nonvenomous arthropods, initial encounter Translations: [ - Bitten or stung by nonvenomous insect and other nonvenomous arthropods, initial encounter W57.XXXA] Unclassified Other no information no information IRVIN EMERSON Community (20 sources.) specified [address] [facility] disorders of of [place] teeth and [place] (15348) supporting structures Translations: [ - Tooth pain K08.89, - Tooth pain K08.89] Unclassified Pelvic and no information no information IRVIN ELLINGTON [facility] (20 sources.) perineal pain [facility] [facility] Translations: of [place] [ - Vaginal [place] (61784) pain R10.2, - Vaginal pain R10.2] Procedures Procedure Normalized Procedure Procedure Result Performer Facility Date 04-07-2014 Arthrocentesis no information no name (no phone) [facility] aspir&/inj interm [facility] jt/burs w/o [facility] (84571) 04-07-2018 Comprehensive no information no name (no phone) [facility] metabolic panel [facility] (84921) 03-16-2014 Cul bact xcpt urine no information no name (no phon e) [facility] blood/stool aerobic [facility] (49910) 10-13-2018 Hemoglobin no information no name (no phone) [facility] glycosylated a1c [facility] (10731) 04-22-2018 Hemoglobin no information no name (no phone) [facility] glycosylated a1c [facility] (92160) 04-07-2018 Hemoglobin no information no name (no phone) [facility] glycosylated a1c [facility] (12133) 06-30-2014 Iaadiadoo no information no name (no phone) [facility] streptococcus group a [facility] (67931) 04-07-2018 Lipid panel no information no name (no phone) [facility] (72518) 03-16-2014 Mammogram, screening no information no name (no kasie ne) [facility] (64680) 04-07-2014 Radex shoulder no information no name (no phone) [facility] complete minimum 2 [facility] (97877) 10-13-2018 Urine albumin no information no name (no phone) [facility] semiquantitative [facility] (24346) 04-22-2018 Urine albumin no information no name (no phone) [facility] semiquantitative [facility] (03951) 01-17-2014 Urine test no information no name (no kasie ne) [facility] visual color cmprsn [facility] (15768) 11-05-2017 Urnls dip stick/tablet no information no name (no p galen) [facility] rgnt auto w/o [facility] (66310) 01-17-2014 Urnls dip stick/tablet no information no name (no p galen) [facility] rgnt auto w/o [facility] (22251) Immunizations Normalized Immunization Date Notes Care Provider Facili ty Immunization influenza, 06-02-2018 no information IRVIN RUIZ [address] [facility] [place], [place] ([address]338) preservative free influenza, seasonal, 06-14-2019 no information no name [facility] injectable [facility] (25923) influenza, seasonal, 06-02-2018 - no information IRVIN RUIZ [address]139 [facility] injectable 06-02-2018 [facility] (86239) no information 06-02-2018 no information IRVIN RUIZ [address] [facility] (94674) Results Test Name Value Interpretation Reference Range Date Time Fa cility (Normalized) (Normalized) (Medline Reference) ua long dip (in house) on null Glucose Test 1+ (no code) [facility] Center of (U) [facility] (43107) Protein mass no information (no code) 0 - 20 mg/dL [facility] conc (U) [facility] (35741) UA LONG DIP (IN 06/2019 (no code) [facility] (21592) UA LONG DIP (IN Clear (no code) [facility] (09585) UA LONG DIP (IN Yellow (no code) [facility] (28469) UA LONG DIP (IN None (no code) [facility] (52812) UA LONG DIP (IN Negativwe (no code) [facility] HOUSE) [facility] (06587) UA LONG DIP (IN no information (no code) [facility] HOUSE) [facility] (52275) UA LONG DIP (IN 0812 (no code) [facility] (32545) UA LONG DIP (IN 5.0 (no code) [facility] (23433) UA LONG DIP (IN <=1.005 (no code) [facility] (53159) UA LONG DIP (IN 0.2 (no code) [facility] HOUSE) [facility] (51305) microalbumin, urine (in house) on null Albumin DL <= 20 no information (no code) [facility] mg/L (U) Center [Mass/Vol] [facility] (17943) Albumin mass 10 g/dL (no code) 3.4 - 5.4 g/dL [facility] conc [facility] (20620) MICROALBUMIN, normal (no code) [facility] URINE (IN HOUSE) [facility] (61801) MICROALBUMIN, 080333 (no code) [facility] URINE (IN HOUSE) [facility] (79918) MICROALBUMIN, 04/10/2019 (no code) [facility] URINE (IN HOUSE) [facility] (69082) MICROALBUMIN, yelllow (no code) [facility] URINE (IN HOUSE) [facility] (85238) MICROALBUMIN, 300 (no code) [facility] URINE (IN HOUSE) [facility] (50136) MICROALBUMIN, <30 (no code) [facility] URINE (IN HOUSE) [facility] (19617) a1c (in house) on null HbA1c (Bld) 941 % (no code) 0 - 5.7 % [facility] [Mass fraction] [facility] (17046) HbA1c (Bld) 05/2020 (no code) [facility] [Mass fraction] [facility] (06238) HbA1c (Bld) 7.9 % (no code) 0 - 5.7 % [facility] [Mass fraction] [facility] (14660) Hemoglobin 7.6 % (no code) 0 - 5.7 % [facility] A1c/Hemoglobin.t [facility] fraction (Bld) (10483) Hemoglobin 7.4 % (no code) 0 - 5.7 % [facility] A1c/Hemoglobin.t [facility] (Bld) (30280) A1C (IN HOUSE) 10/2019 (no code) [facility] (52442) A1C (IN HOUSE) 0856 (no code) [facility] (73600) No panel information on 2019-10-18 Color (U) 03/2020~clear~ye (no code) [facility] (37389) Control < 30~+ (no code) [facility] (08773) CRE 10~100 (no code) [facility] (65953) Lot # [id number] (no code) [facility] (67121) MICROALBUMIN normal (no code) [facility] (95419) No panel information on 2019-10-07 BLO 11/2020~clear~ye (no code) [facility]~none~2+~neg [facility]~negative~> [facility] =1.030~negative (77639) Exp date no information (no code) [facility] (76571) Lot # [id number] (no code) [facility] (61451) pH (Bld) 5.0 [pH] (no code) 7.38 - 7.42 [pH] [facility] (82074) Protein (U) no information (no code) 0 - 20 mg/dL [facility] [Mass/Vol] [facility] (96905) URO 0.2 (no code) [facility] (90138) No panel information on 2019-09-22 Exp date 03/2021 (no code) [facility] (07291) Lot 8.7~7.9~0552 (no code) [facility] (33145) No panel information on 2019-09-17 CLINICAL no information (N) [facility] INFORMATION: [facility] (30591) COMMENT no information (no code) [facility] (34954) Control no information (no code) [facility] (86600) Theatrical Dresser Cyto no information (N) [facility] stain Nom [facility] (Cvx/Vag) [ID] [facility] (92668) Date of previous no information (N) [facility] biopsy [facility] (31780) Date of previous no information (N) [facility] PAP smear [facility] (16157) Exp date 08/31 (no code) [facility] (64407) Exp date 04/30 (no code) [facility] (45331) HPV E6+E7 mRNA Not Detected (N) [facility] YAEL+probe Ql [facility] (Cvx) [facility] (83547) Last menstrual 08/25/19 (N) [facility] period start [facility] (89283) Lot # [id number] (no code) [facility] (30462) Lot # [id number] (no code) [facility] (61653) Microscopic no information (N) [facility] observation Cyto [facility] (Cvx) [facility] (39398) Specimen source Cervix (N) [facility] Cyto stain Nom [facility] (Cvx/Vag) [facility] (06436) Statement of no information (N) [facility] adequacy Cyto [facility] (Cvx/Vag) [facility] [Interp] (75882) No panel information on 2018-10-13 A:C (IN HOUSE) <30 (no code) [facility] (26921) Color (U) 01/2019~cloudy~ye (no code) [facility] (85717) CRE 80~300 (no code) [facility] (94597) Exp date 05/2020 (no code) [facility] (84265) Lot 7.9~7.4~0941 (no code) [facility] (04110) Lot # [id number] (no code) [facility] (86545) No panel information on 2018-04-22 A:C (IN HOUSE) <30 (no code) no information Color Nom (U) 04/10/2019~clear (no code) no informatio n ~yelllow CRE 10~300 (no code) no information Exp date 10/2019 (no code) [facility] (23687) Lot 7.4~7.6~0856 (no code) [facility] (81458) Lot # [id number] (no code) no information MICROALBUMIN normal (no code) no information No panel information on 2018-04-07 Albumin mass 4.2 g/dL (N) 3.4 - 5.4 g/dL no inform ation conc Albumin/Globulin 1.2 (N) no informatio n mass ratio ALP enzyme 78 U/L (N) 44 - 147 U/L no informati on act/vol ALT enzyme 18 U/L (N) 4 - 40 U/L no information act/vol AST enzyme 19 U/L (N) 10 - 34 U/L no informatio n act/vol Bilirubin mass 0.6 mg/dL (N) 0.1 - 1.2 mg/dL no inf ormation conc Calcium mass 9.3 mg/dL (N) 8.5 - 10.2 mg/dL no info rmation conc Chloride molar 101 mmol/L (N) 95 - 106 mmol/L no inf ormation conc Cholesterol in 46 mg/dL (L) [facility] HDL mass conc [facility] (44341) Cholesterol in 107 (H) [facility] h LDL mass conc [facility] (59110) Cholesterol mass 179 mg/dL (N) 180 - 200 mg/dL Comm [facility] conc [facility] (68794) Cholesterol non 133 (H) [facility] th HDL mass conc [facility] (12033) Cholesterol.tota 3.9 (N) [facility] lt l/Cholesterol in [facility] HDL mass ratio [facility] (04436) CO2 molar conc 28 mmol/L (N) 23 - 29 mmol/L no info rmation Creatinine mass 0.55 mg/dL (N) no information conc GFR/1.73 sq M 129 (N) 90 - 120 no informati on predicted among mL/min/{1.73_m2} mL/min/{1.73_m2} blacks MDRD vol rate/area (S/P/Bld) GFR/1.73 sq 112 (N) 90 - 120 no information M.predicted MDRD mL/min/{1.73_m2} mL/min/{1.73_m2} vol rate/area Globulin 3.4 (N) no information Calculated mass conc (S) Glucose mass 164 mg/dL (H) 60 - 125 mg/dL no inform ation conc Potassium molar 4.4 mmol/L (N) 3.7 - 5.2 mmol/L no i nformation conc Protein mass 7.6 g/dL (N) 6.4 - 8.3 g/dL no inform ation conc Sodium molar 136 mmol/L (N) 135 - 145 mmol/L no info rmation conc Triglyceride 151 mg/dL (H) 0 - 150 mg/dL [facility] (80284) Urea nitrogen 12 mg/dL (N) 7 - 20 mg/dL no informa tion mass conc Urea NOT APPLICABLE (no code) no information nitrogen/Creatin ine mass ratio No panel information on 2017-11-05 BLO 06/2019~Clear~Ye (no code) [facility] llow~None~1+~Neg [facility]~Negative~ [facility] <=1.005~Negative (89082) [place] no information (no code) [facility] (04949) Lot # [id number] (no code) [facility] (48471) pH (Bld) 5.0 [pH] (no code) 7.38 - 7.42 [pH] [facility] (93281) Protein mass no information (no code) 0 - 20 mg/dL [facility] (U) [facility] (56468) URO 0.2 (no code) [facility] (39200) No panel information on 2016-11-12 Albumin 4.2 g/dL (no code) 3.4 - 5.4 g/dL 11-12-2016 Not Nicolasa ilable [Mass/Vol] 09: (56441) Albumin/Globulin 1.4 {ratio} (no code) 1 - 2.5 {ratio} 7 Not Available [Mass ratio] 09: (30054) ALP [Catalytic 102 U/L (no code) 44 - 147 U/L 11-12-2016 Not Available activity/Vol] 09: (27759) ALT [Catalytic 26 U/L (no code) 4 - 40 U/L 11-12-2016 Not Av ailable activity/Vol] 09: (37458) AST [Catalytic 20 U/L (no code) 10 - 34 U/L 11-12-2016 Not A vailable activity/Vol] 09: (88028) Bilirubin 0.4 mg/dL (no code) 0.1 - 1.2 mg/dL 11-12-2016 Not Av ailable [Mass/Vol] 09: (84939) Calcium 9.2 mg/dL (no code) 8.5 - 10.2 mg/dL 11-12-2016 Not A vailable [Mass/Vol] 09: (74879) Chloride 96 mmol/L (no code) 95 - 106 mmol/L 11-12-2016 Not Av ailable [Moles/Vol] 09: (63055) Cholesterol 183 mg/dL (no code) 180 - 200 mg/dL 11-12-2016 Not Available [Mass/Vol] 09: (98043) Cholesterol in 44 mg/dL (no code) 11-12-2016 Not Availab le HDL [Mass/Vol] 09: (91195) Cholesterol in 113 mg/dL (H) 0 - 100 mg/dL 11-12-2016 Not Available LDL [Mass/Vol] 09: (03069) Cholesterol in 26 mg/dL (no code) 11-12-2016 Not Availab le VLDL [Mass/Vol] 09: (39007) CO2 [Moles/Vol] 24 mmol/L (no code) 23 - 29 mmol/L 11-12-2016 N ot Available 09: (49655) Creatinine 0.48 mg/dL (L) 11-12-2016 Not Available [Mass/Vol] 09: (71244) GFR/1.73 sq M 137 (no code) 90 120 11-12-2016 Not Avai lable predicted among mL/min/{1.73_m2} mL/min/{1.73_m2} 09: (65807) blacks MDRD (S/P/Bld) [Vol rate/Area] GFR/1.73 sq M 119 (no code) 90 - 120 11-12-2016 Not Avai lable predicted among mL/min/{1.73_m2} mL/min/{1.73_m2} 09: (16682) non-blacks MDRD (S/P/Bld) [Vol rate/Area] Globulin (S) 3.1 g/dL (no code) 2 - 3.5 g/dL 11-12-2016 Not Av ailable [Mass/Vol] 09:12 (92775) Glucose 198 mg/dL (H) 60 - 125 mg/dL 11-12-2016 Not Nicolasa ilable [Mass/Vol] 09: (74046) Potassium 4.6 mmol/L (no code) 3.7 - 5.2 mmol/L 11-12-2016 Not Available [Moles/Vol] 09: (89721) Protein 7.3 g/dL (no code) 6.4 - 8.3 g/dL 11-12-2016 Not Nicolasa ilable [Mass/Vol] 09: (14940) Sodium 138 mmol/L (no code) 135 - 145 mmol/L 11-12-2016 Not Available [Moles/Vol] 09: (06074) Triglyceride 131 mg/dL (no code) 0 - 150 mg/dL 11-12-2016 Not A vailable [Mass/Vol] 09: (59817) Urea nitrogen 12 mg/dL (no code) 7 - 20 mg/dL 11-12-2016 Not A vailable [Mass/Vol] 09: (41378) Urea 25 mg/mg (H) 6 - 22 mg/mg 11-12-2016 Not Avail able nitrogen/Creatin 09: (74165) ine [Mass ratio] Vital Signs Vital Sign Value Interpretation Reference Date Time Care Prov ider Facility (Normalized) (Normalized) Range BMI (Body Mass 33.87 kg/m2 (no code) 15 - 25 kg/m2 10-13-2018 D [facility] Community Index) 14:00-0500 [id number] [facility] ([id number]) BMI (Body Mass 33.55 kg/m2 (no code) 15 - 25 kg/m2 06-23-2018 [facility] 12:40-0500 54458 [facility] ([id number]) BMI (Body Mass 32.63 kg/m2 (no code) 15 - 25 kg/m2 04-22-2018 B HUSEYIN RUIZ Community Index) 15:20-0400 31181 [facility] ([id number]) BMI (Body Mass 31.49 kg/m2 (no code) 15 - 25 kg/m2 11-05-2017 B HUSEYIN RUIZ Community Index) 16:00-0400 62257 [facility] ([id number]) Body height 160.02 cm (no code) cm 11-22-2013 [facility] 12:15-0400 15884 [facility] ([id number]) Body height 160.02 cm (no code) cm 11-08-2013 [facility] 16:07-0400 80776 [facility] ([id number]) Body 98 [degF] (no code) 97.8 - 99.0 10-13-2018 [facility]ANA [facility] Temperature [degF] 14:00-0500 35369 [facility] ([id number]) Body 97.7 [degF] (no code) 97.8 - 99.0 06-23-2018 ADRIANA MCCORD [facility] Temperature [degF] 12:40-0500 50122 [facility] ([id number]) Body 97.8 [degF] (no code) 97.8 - 99.0 04-22-2018 [facility] Temperature [degF] 15:20-0400 71024 [facility] ([id number]) Body 97.4 [degF] (no code) 97.8 - 99.0 11-05-2017 [facility] Temperature [degF] 16:00-0400 13575 [facility] ([id number]) Body 97.6 [degF] (no code) 97.8 - 99.0 07-04-2014 [facility] Temperature [degF] 08:32-0500 32863 [facility] ([id number]) Body 97.1 [degF] (no code) 97.8 - 99.0 06-30-2014 [facility] Temperature [degF] 12:37-[id number] [place] [address] ([id number]) Body 98.4 [degF] (no code) 97.8 - 99.0 04-07-2014 [facility] Temperature [degF] 13:35-0400 65948 [facility] ([id number]) Body 98.6 [degF] (no code) 97.8 - 99.0 03-16-[address] [facility] Temperature [degF] 11:58-0400 65885 [facility] ([id number]) Body 97.1 [degF] (no code) 97.8 - 99.0 01-17-[address] [facility] Temperature [degF] 16:46-0400 12229 [facility] ([id number]) Body 97 [degF] (no code) 97.8 - 99.0 11-22-2013 [facility] 12:15-[address] [place] [address] ([id number]) Body 98.5 [degF] (no code) 97.8 - 99.0 11-08-2013 [facility] temperature [degF] 16:07-[address] [place] [address] ([id number]) Body weight 86.73 kg (no code) kg 10-13-2018 [facility] 14:00-[address] [place] [address] ([id number]) Body weight 90.04 kg (no code) kg 07-04-2014 IRVIN VALADEZ [facility] 08:32-[address] [place] [address] ([id number]) Body weight 89.95 kg (no code) kg 06-30-2014 HARRIET wright 12:37-[address] [place] [address] ([id number]) Body weight 89.47 kg (no code) kg 04-07-2014 IRVIN VALADEZ [facility] 13:35-[address] [place] [address] ([id number]) Body weight 89 kg (no code) kg 03-16-2014 CANDY Abernathy [facility] 11:58-[address] [place] [address] ([id number]) Body weight 88.08 kg (no code) kg 01-17-2014 CANDY Abernathy [facility] 16:46-[address] [place] [address] ([id number]) Body weight 87.73 kg (no code) kg 11-22-2013 IRVINTANA VALADEZ [facility] 12:15-[id number] [place] [address] ([id number]) Body weight 87.73 kg (no code) kg 11-08-2013 IRVINTANA VALADEZ [facility] 16:07-[address] [place] [address] ([id number]) Height 160.02 cm (no code) cm 10-13-2018 [facility] 14:00-[address] [place] [address] ([id number]) Height 160.02 cm (no code) cm 06-23-2018 [facility] 12:40-[address] [place] [address] ([id number]) Height 160.02 cm (no code) cm 04-22-2018 [facility] 15:20-[address] [place] [address] ([id number]) Height 160.02 cm (no code) cm 11-05-2017 [facility] 16:00-[address] [place] [address] ([id number]) Height 160.02 cm (no code) cm 07-04-2014 [facility] 08:32-[address] [place] [address] ([id number]) Height 160.02 cm (no code) cm 06-30-2014 HARRIET dunlap 12:37-[address] [place] [address] ([id number]) Height 160.02 cm (no code) cm 04-07-2014 [facility] 13:35-[address] [place] [address] ([id number]) Height 160.02 cm (no code) cm 03-16-2014 [facility] 11:58-[address] [place] [address] ([id number]) Height 160.02 cm (no code) cm 01-17-2014 [facility] 16:46-[address] [place] [address] ([id number]) Pulse Oximetry 98 % (no code) 95 - 100 % 10-13-2018 ADRIANA ORTIZ [facility] 14:00-0500 81885 [facility] ([id number]) Pulse Oximetry 0 % (no code) 95 - 100 % 06-23-2018 ADRIANA ORTIZ [facility] 12:40-0500 09653 [facility] ([id number]) Weight 85.91 kg (no code) kg 06-23-2018 ADRIANA BRAND [facility] 12:40-0500 11283 [facility] ([id number]) Weight 83.55 kg (no code) kg 04-22-2018 IRVIN RUIZ [facility] 15:20-0400 66433 [facility] ([id number]) Weight 80.65 kg (no code) kg 11-05-2017 IRVIN RUIZ [facility] 16:00-0400 62903 [facility] ([id number]) Interventions No Information Plan of Treatment The data below is from unstructured sources Activity Details Follow Up prn Reason:dental wellness Activity Details Follow Up prn Reason: Activity Details Follow Up 3 Months Reason:DM Activity Details Follow Up Reg appt Reason: Activity Details Follow Up 3 Months Reason: Goals No Information Social History No Information Functional Status The data below is from unstructured sourcesNo functional status results. Mental Status No Information Encounters Encounter Normalized Encounter Encounter Diagnosis Care Provi diana Organization Date Type 10-13-2018 (ACUTE) Acute Visit Acute upper ADRIANA REHMANDENISEROBI (no [facility] - respiratory infection, phone) (no kasie ne) 10-13-2018 unspecified - 10-13-2018 04-22-2018 ([facility]) Chronic Health Type 2 diabetes IRVIN RUIZ (no [facility] - Maintenance mellitus without phone) (no phone ) 04-22-2018 complications - 04-22-2018 04-06-2018 ([facility]) Chronic Health no information IRVIN RUIZ (no [facility] - Maintenance phone) (no phone) 04-06-2018 - 04-06-2018 06-02-2018 (imm/inj) Encounter for IRVIN RUIZ (no [place] - Immunization/injection immunization phone) (n o phone) 06-02-2018 - 06-02-2018 11-18-2018 (optometry) Optometry no information IRVIN JOSEPH (no [facility] [place] phone) (no phone) 11-18-2018 - 11-18-2018 06-23-2018 (SD) Same Day Acute nasopharyngitis ADRIANA BRAND ( no [facility] - [common cold] phone) (no phone) 06-23-2018 - 06-23-2018 08-14-2015 [facility] juan Galvez (no [facility] - DENTAL phone) DENTAL (no phon e) 08-14-2015 - 08-14-2015 02-24-2018 [facility] no information IRVIN JOSEPH (no [facility] - phone) (no phone) 02-24-2018 - 02-24-2018 01-22-2018 [facility] no information IRVIN JOSEPH (no [facility] - phone) (no phone) 01-22-2018 - 01-22-2018 11-14-2017 [facility] Type 2 diabetes IRVIN ALYLSON N (no [facility] - mellitus without phone) (no phone) 11-14-2017 complications - 11-14-2017 11-06-2017 [facility] no information IRVIN JOSEPH (no [facility] ([place] - phone) (no phone) 11-06-2017 - 11-06-2017 11-05-2017 [facility] Other specified IRVIN ALLYSON N (no [facility] - noninflammatory phone) (no phone) 11-05-2017 disorders of vulva and - perineum 11-05-2017 10-07-2017 [facility] no information IRVIN JOSEPH (no [facility] - phone) (no phone) 10-07-2017 - 10-07-2017 10-06-2017 [facility] no information IRVIN JOSEPH (no [facility] - phone) (no phone) 10-06-2017 - 10-06-2017 09-03-2017 [facility] no information IRVIN JOSEPH (no [facility] - phone) (no phone) 09-03-2017 - 09-03-2017 08-01-2017 [facility] no information IRVIN JOSEPH (no [facility] - phone) (no phone) 08-01-2017 - 08-01-2017 07-30-2017 [facility] no information IRVIN JOSEPH (no [facility] - phone) (no phone) 07-30-2017 - 07-30-2017 04-07-2017 [facility] Type 2 diabetes IRVIN ALLYSON N (no [facility] - mellitus without phone) (no phone) 04-07-2017 - 04-07-2017 03-27-2017 [facility] no information IRVIN JOSEPH (no [facility] - phone) (no phone) 03-27-2017 - 03-27-2017 03-19-2017 [facility] Dysuria IRVIN JOSEPH (n o [facility] - phone) (no phone) 03-19-2017 - 03-19-2017 12-17-2016 [facility] no information IRVIN JOSEPH (no [facility] - phone) (no phone) 12-17-2016 - 12-17-2016 11-27-2016 [facility] l findings LUBA ROSALBA (no [facility] [facility] phone) LUBA zzVICK (no phone) 11-27-2016 (no phone) LUBA - zzVICK (no phone) 11-27-2016 LUBA zzVICK (no phone) 11-27-2016 [facility] Nausea with vomiting, IRVIN JOSEPH (no [facility] - unspecified phone) (no phone) 11-27-2016 - 11-27-2016 11-27-2016 [facility] no information IRVIN JOSEPH (no [facility] - phone) (no phone) 11-27-2016 - 11-27-2016 11-27-2016 [facility] [place] shira JUAREZ (no kasie ne) [facility] - (no phone) 11-27-2016 - 11-27-2016 11-19-2016 [facility] Type 2 diabetes IRVIN ALLYSON N (no [facility] - mellitus without phone) (no phone) 11-19-2016 complications - 11-19-2016 11-11-2016 [facility] Type 2 diabetes IRVIN ALLYSON N (no [facility] - mellitus without phone) (no phone) 11-11-2016 complications - 11-11-2016 11-01-2016 [facility] Type 2 diabetes IRVIN ALLYSON N (no [facility] - mellitus without phone) (no phone) 11-01-2016 complications - 11-01-2016 07-23-2016 [facility] no information IRVIN JOSEPH (no [facility] - phone) (no phone) 07-23-2016 - 07-23-2016 07-23-2016 [facility] Dysuria IRVIN JOSEPH (n o [facility] [facility] phone) (no phone) 07-23-2016 - 07-23-2016 07-19-2016 [facility] Dysuria LISBETHPHOENIX OATES (no [facility] phone) LISBETH murciaCAREJin (no phone) 07-19-2016 (no phone) LISBETH murciaCAREY (no phone) 07-19-2016 06-28-2016 [facility] Unspecified LISBETH OATES (no [facility] - conjunctivitis phone) LISBETH murciaCAREY (no kasie ne) 06-28-2016 (no phone) LISBETH murciaCAREY (no phone) 06-28-2016 06-12-2016 [facility] no information IRVIN JOSEPH (no [facility] [facility] phone) (no phone) 06-12-2016 - 06-12-2016 05-16-2016 [facility] no information IRVIN JOSEPH (no [facility] - phone) (no phone) 05-16-2016 - 05-16-2016 05-07-2016 [facility] no information IRVIN JOSEPH (no [facility] - phone) (no phone) 05-07-2016 - 05-07-2016 04-24-2016 [facility] no information IRVIN JOSEPH (no [facility] - phone) (no phone) 04-24-2016 - 04-24-2016 04-22-2016 [facility] no information IRVIN JOSEPH (no [facility] - phone) (no phone) 04-22-2016 - 04-22-2016 04-22-2016 [facility] Type 2 diabetes IRVIN ALLYSON N (no [facility] - mellitus without phone) (no phone) 04-22-2016 complications - 04-22-2016 04-04-2016 [facility] no information IRVIN JOSEPH (no [facility] - phone) (no phone) 04-04-2016 - 04-04-2016 03-08-2016 [facility] Bronchitis, not ADRIANA BRAND (no [facility] - specified as acute or phone) (no phon e) 03-08-2016 chronic - 03-08-2016 03-04-2016 [facility] Bronchitis, not ADRIANA BRAND (no [facility] - specified as acute or phone) (no phon e) 03-04-2016 chronic - 03-04-2016 02-21-2016 [facility] Type 2 diabetes IRVIN ALLYSON N (no [facility] - mellitus without phone) (no phone) 02-21-2016 complications - 02-21-2016 02-19-2016 [facility] no information IRVIN JOSEPH (no [facility] - phone) (no phone) 02-19-2016 - 02-19-2016 02-19-2016 [facility] Type 2 diabetes IRVIN ALLYSON N (no [facility] - mellitus without phone) (no phone) 02-19-2016 complications - 02-19-2016 01-29-2016 [facility] Type 2 diabetes IRVIN ALLYSON N (no [facility] - mellitus without phone) (no phone) 01-29-2016 complications - 01-29-2016 01-23-2016 [facility] Type 2 diabetes IRVIN ALLYSON N (no [facility] - mellitus without phone) (no phone) 01-23-2016 complications - 01-23-2016 12-20-2015 [facility] Type 2 diabetes IRVIN ALLYSON N (no [facility] - mellitus without phone) (no phone) 12-20-2015 complications - 12-20-2015 11-21-2015 [facility] Type 2 diabetes IRVIN ALLYSON N (no [facility] - mellitus without phone) (no phone) 11-21-2015 complications - 11-21-2015 10-12-2015 [facility] Type 2 diabetes IRVIN ALLYSON N (no [facility] - mellitus without phone) (no phone) 10-12-2015 complications - 10-12-2015 09-25-2015 [facility] Dysuria IRVIN JOSEPH (n o [facility] - phone) (no phone) 09-25-2015 - 09-25-2015 09-15-2015 [facility] no information IRVIN JOSEPH (no [facility] - phone) (no phone) 09-15-2015 - 09-15-2015 09-14-2015 [facility] no information IRVIN JOSEPH (no [facility] - phone) (no phone) 09-14-2015 - 09-14-2015 08-14-2015 [facility] Type 2 diabetes [facility] ALL[facility]ON N [facility]) (no phone) 08-14-2015 complications - 08-14-2015 07-17-2015 [facility] Other specified IRVIN ALLYSON N (no [facility] - disorders of phone) (no phone) 07-17-2015 Eustachian tube, left - ear 07-17-2015 07-04-2015 [facility] no information IRVINAlisa RUIZ (no [facility] - phone) (no phone) 07-04-2015 - 07-04-2015 07-04-2015 [facility] Cellulitis, SAMUEL Conde S (no [facility] - unspecified phone) (no phone) 07-04-2015 - 07-04-2015 07-03-2015 [facility] no information IRVIN JOSEPH (no [facility] - phone) (no phone) 07-03-2015 - 07-03-2015 06-15-2015 [facility] no information FADIA GALDAMEZ ( no [facility] - phone) (no phone) 06-15-2015 - 06-15-2015 06-15-2015 [facility] no information SAMUEL BROWN (no [facility] - phone) (no phone) 06-15-2015 - 06-15-2015 05-30-2015 [facility] Other benign neoplasm FADIA GALDAMEZ (no [facility] - of skin of right lower phone) (no kasie ne) 05-30-2015 limb, including hip - 05-30-2015 05-22-2015 [facility] no information IRVIN JOSEPH (no [facility] - phone) (no phone) 05-22-2015 - 05-22-2015 05-09-2015 [facility] Diabetes mellitus IRVIN MEREDITH EMERSON (no [facility] - without mention of phone) (no phone) 05-09-2015 complication, type II - or unspecified type, 05-09-2015 not stated as uncontrolled 05-02-2015 [facility] no information IRVIN JOSEPH (no [facility] - phone) (no phone) 05-02-2015 - 05-02-2015 05-01-2015 [facility] no information IRVIN JOSEPH (no [facility] - phone) (no phone) 05-01-2015 - 05-01-2015 04-25-2015 [facility] Diabetes mellitus IRVIN BREN NAN (no [facility] - without mention of phone) (no phone) 04-25-2015 complication, type II - or unspecified type, 04-25-2015 not stated as uncontrolled 03-27-2015 [facility] no information IRVIN JOSEPH (no [facility] - phone) (no phone) 03-27-2015 - 03-27-2015 02-03-2015 [facility] no information IRVIN JOSEPH (no [facility] - phone) (no phone) 02-03-2015 - 02-03-2015 02-01-2015 [facility] Diabetes mellitus IRVIN BREN NAN (no [facility] - without mention of phone) (no phone) 02-01-2015 complication, type II - or unspecified type, 02-01-2015 not stated as uncontrolled 01-05-2015 [facility] Diabetes mellitus IRVIN BREN NAN (no [facility] - without mention of phone) (no phone) 01-05-2015 complication, type II - or unspecified type, 01-05-2015 not stated as uncontrolled 12-08-2014 [facility] Candidiasis of other CANDY NARVAEZ (no [facility] - urogenital sites phone) (no phone) 12-08-2014 - 12-08-2014 11-22-2014 [facility] no information Doctor Migrati on (no [facility] - phone) (no phone) 11-22-2014 - 11-22-2014 11-21-2014 [facility] no information Doctor Migrati on (no [facility] phone) (no phone) 11-21-2014 - 11-21-2014 10-18-2014 [facility] no information IRVIN JOSEPH (no [facility] phone) Doctor (no phone) 10-18-2014 Migration (no phone) - Doctor Migration (no 10-18-2014 phone) IRVIN JOSEPH (no phone) IRVIN RUIZ (no phone) Doctor Migration (no phone) 10-04-2014 [facility] no information IRVIN JOSEPH (no [facility] phone) Doctor (no phone) 10-04-2014 [facility] (no phone) - IRVIN RUIZ (no 10-04-2014 phone) Doctor Migration (no phone) IRVIN JOSEPH (no phone) Doctor Migration (no phone) 07-21-2014 [facility] no information Doctor Migrati on (no [facility] phone) IRVIN RUIZ (no phone) 07-21-2014 (no phone) IRVIN - JOSEPH (no phone) 07-21-2014 Doctor Migration (no phone) IRVIN RUIZ (no phone) Doctor Migration (no phone) 07-04-2014 [facility] no information Doctor Migrati on (no [facility] phone) IRVIN RUIZ (no phone) 07-04-2014 (no phone) Doctor - Migration (no phone) 07-04-2014 IRVIN RUIZ (no phone) Doctor Migration (no phone) IRVIN RUIZ (no phone) 06-30-2014 [facility] ([facility] no information HARRIET MEJÍA SON (no [facility] ([facility] - phone) Doctor (no phone) 06-30-2014 [facility] (no phone) - Doctor Migration (no 06-30-2014 phone) HARRIET IVERSON (no phone) Doctor [facility] (no phone) HARRIET IVERSON (no phone) 06-02-2014 [facility] ([facility] no information Doctor Migrati on (no [facility] ([facility] - phone) (no phone) 06-02-2014 - 06-02-2014 05-31-2014 [facility] ([facility] no information IRVIN RUIZ (no [facility] ([facility] - phone) Doctor (no phone) 05-31-2014 [facility] (no phone) - Doctor Migration (no 05-31-2014 phone) IRVIN JOSEPH (no phone) IRVIN JOSEPH (no phone) Doctor [facility] (no phone) 04-21-2014 [facility] ([facility] no information IRVIN JOSEPH (no [facility] ([facility] phone) Doctor (no phone) 04-21-2014 [facility] (no phone) - Doctor Migration (no 04-21-2014 phone) IRVIN JOSEPH (no phone) IRVIN JOSEPH (no phone) Doctor [facility] (no phone) 04-18-2014 [facility] ([facility] no information Doctor Migrati on (no [facility] ([facility] - phone) IRVIN JOSEPH (no phone) 04-18-2014 (no phone) IRVIN - JOSEPH (no phone) 04-18-2014 Doctor [facility] (no phone) IRVIN JOSEPH (no phone) Doctor [facility] (no phone) 04-07-2014 [facility] ([facility] no information IRVIN JOSEPH (no [facility] ([facility] phone) Doctor (no phone) 04-07-2014 [facility] (no phone) - Doctor Migration (no 04-07-2014 phone) IRVIN JOSEPH (no phone) IRVIN JOSEPH (no phone) Doctor [facility] (no phone) 03-31-2014 [facility] ([facility] no information IRVIN JOSEPH (no [facility] ([place] - phone) Doctor (no phone) 03-31-2014 Migration (no phone) - Doctor Migration (no 03-31-2014 phone) IRVIN JOSEPH (no phone) IRVIN JOSEPH (no phone) Doctor Migration (no phone) 03-28-2014 [facility] ([place] no information Doctor Migrati on (no [facility] ([place] - phone) CANDY zrylanHEIMAN (no phone) 03-28-2014 (no phone) Doctor - Migration (no phone) 03-28-2014 CANDY zzHEIMAN (no phone) ACNDY zzHEIMAN (no phone) Doctor Migration (no phone) 03-19-2014 [facility] ([place] no information Doctor Migrati on (no [facility] ([place] - phone) (no phone) 03-19-2014 - 03-19-2014 03-18-2014 [facility] no information Doctor Migrati on (no [facility] ([place] - phone) (no phone) 03-18-2014 - 03-18-2014 03-16-2014 [facility] ([place] no information CANDY Johnson (no [facility] ([place] - phone) Doctor (no phone) 03-16-2014 Migration (no phone) - CANDY Johnson (no 03-16-2014 phone) Doctor Migration (no phone) CANDY NoeAN (no phone) Doctor Migration (no phone) 02-22-2014 [facility] ([place] no information IRVIN JOSEPH (no [facility] ([place] phone) Doctor (no phone) 02-22-2014 Migration (no phone) - IRVIN JOSEPH (no 02-22-2014 phone) Doctor Migration (no phone) IRVIN JOSEPH (no phone) Doctor Migration (no phone) 02-03-2014 [facility] ([place] no information IRVIN JOSEPH (no [facility] ([place] phone) Doctor (no phone) 02-03-2014 Migration (no phone) - IRVIN JOSEPH (no 02-03-2014 phone) Doctor Migration (no phone) IRVIN JOSEPH (no phone) Doctor Migration (no phone) 01-17-2014 [facility] ([place] no information CANDY Johnson (no [facility] ([place] - phone) Doctor (no phone) 01-17-2014 Migration (no phone) - CANDY Johnson (no 01-17-2014 phone) Doctor Migration (no phone) Doctor Migration (no phone) CANDY NoeAN (no phone) 12-20-2013 [facility] ([place] no information IRVIN JOSEPH (no [facility] ([place] [place] phone) Doctor (no phone) 12-20-2013 Migration (no phone) - IRVIN JOSEPH (no 12-20-2013 phone) Doctor Migration (no phone) Doctor Migration (no phone) IRVIN JOSEPH (no phone) 11-22-2013 [facility] ([place] no information IRVIN JOSEPH (no [facility] ([place] phone) Doctor (no phone) 11-22-2013 Migration (no phone) - Doctor Migration (no 11-22-2013 phone) IRVIN JOSEPH (no phone) Doctor Migration (no phone) IRVINTANA MARLEYAN (no phone) 11-19-2013 [facility] ([place] no information Doctor Migrati on (no [facility] ([place] [place] phone) (no phone) 11-19-2013 - 11-19-2013 11-11-2013 [facility] ([place] no information IRVIN JOSEPH (no [facility] ([place] phone) Doctor (no phone) 11-11-2013 Migration (no phone) - IRVIN RUIZ (no 11-11-2013 phone) Doctor Migration (no phone) Doctor Migration (no phone) IRVIN RUIZ (no phone) 11-10-2013 [facility] ([place] no information IRVIN JOSEPH (no [facility] ([place] [place] phone) Doctor (no phone) 11-10-2013 Migration (no phone) - IRVIN RUIZ (no 11-10-2013 phone) Doctor Migration (no phone) IRVIN JOSEPH (no phone) Doctor Migration (no phone) 11-08-2013 [facility] ([place] no information IRVIN JOSEPH (no [facility] ([place] phone) Doctor (no phone) 11-08-2013 Migration (no phone) - IRVIN JOSEPH (no 11-08-2013 phone) Doctor Migration (no phone) IRVIN JOSEPH (no phone) Doctor Migration (no phone) 11-05-2013 [facility] ([place] no information Doctor Migrati on (no [facility] ([place] - phone) (no phone) 11-05-2013 - 11-05-2013 10-21-2013 [facility] ([place] no information Doctor Migrati on (no [facility] ([place] phone) IRVIN JOSEPH (no phone) 10-21-2013 (no phone) Doctor - Migration (no phone) 10-21-2013 IRVIN JOSEPH (no phone) IRVIN JOSEPH (no phone) Doctor Migration (no phone) 10-14-2013 [facility] ([place] no information Doctor Migrati on (no [facility] ([place] - phone) (no phone) 10-14-2013 - 10-14-2013 09-17-2013 [facility] ([place] no information FADIA GALDAMEZ ( no [facility] ([place] - phone) Doctor (no phone) 09-17-2013 Migration (no phone) - Doctor Migration (no 09-17-2013 phone) FADIA GALDAMEZ (no phone) FADIA GALDAMEZ (no phone) Doctor Migration (no phone) 09-13-2013 [facility] no information JULIETTE WEBB [facility] ([place] - (no phone) Doctor (no phone) 09-13-2013 Migration (no phone) - JULIETTE WEBB 09-13-2013 (no phone) Doctor Migration (no phone) JULIETTE WEBB (no phone) Doctor Migration (no phone) 08-17-2013 [facility] ([place] no information IRVIN JOSEPH (no [facility] ([place] - phone) Doctor (no phone) 08-17-2013 Migration (no phone) - IRVIN JOSEPH (no 08-17-2013 phone) Doctor Migration (no phone) IRVIN JOSEPH (no phone) Doctor Migration (no phone) 08-13-2013 [facility] ([place] no information Doctor Migrati on (no [facility] ([place] - phone) (no phone) 08-13-2013 - 08-13-2013 07-26-2013 [facility] ([place] no information IRVIN JOSEPH (no [facility] ([place] - phone) Doctor (no phone) 07-26-2013 Migration (no phone) - Doctor Migration (no 07-26-2013 phone) IRVIN JOSEPH (no phone) IRVIN JOSEPH (no phone) Doctor Migration (no phone) 04-14-2013 [facility] ([place] no information IRVIN JOSEPH (no [facility] ([place] - phone) (no phone) 04-14-2013 - 04-14-2013 04-13-2013 [facility] no information IRVIN JOSEPH (no [facility] ([place] - phone) (no phone) 04-13-2013 - 04-13-2013 04-09-2013 [facility] no information IRVIN JOSEPH (no [facility] - phone) (no phone) 04-09-2013 - 04-09-2013 04-08-2013 [facility] ([place] no information IRVIN JOSEPH (no [facility] - phone) (no phone) 04-08-2013 - 04-08-2013 03-25-2013 [facility] ([place] no information CANDY divinaHEIMAN (no [facility] - phone) (no phone) 03-25-2013 - 03-25-2013 03-23-2013 [facility] ([place] no information CANDY zzHEIMAN (no [facility] - phone) (no phone) 03-23-2013 - 03-23-2013 03-22-2013 [facility] ([place] no information IRVIN JOSEPH (no [facility] - phone) (no phone) 03-22-2013 - 03-22-2013 03-19-2013 [facility] ([place] no information Doctor Migrati on (no [facility] - phone) (no phone) 03-19-2013 - 03-19-2013 03-17-2013 [facility] ([place] no information Doctor Migrati on (no [facility] - phone) (no phone) 03-17-2013 - 03-17-2013 03-16-2013 [facility] ([place] no information Doctor Migrati on (no [facility] - phone) (no phone) 03-16-2013 - 03-16-2013 03-15-2013 [facility] ([place] no information Doctor Migrati on (no [facility] - phone) (no phone) 03-15-2013 - 03-15-2013 03-12-2013 [facility] ([place] no information CANDY zzHEIMAN (no [facility] - phone) (no phone) 03-12-2013 - 03-12-2013 03-10-2013 [facility] ([place] no information IRVIN JOSEPH (no [facility] - phone) (no phone) 03-10-2013 - [id number] [facility] ([place] no information CANDY Johnson (no [facility] - phone) (no phone) 03-05-2013 - 03-05-2013 02-25-2013 [facility] ([place] no information Doctor Migrati on (no [facility] - phone) (no phone) 02-25-2013 - 02-25-2013 02-15-2013 [facility] ([place] no information IRVIN JOSEPH (no [facility] - phone) (no phone) 02-15-2013 - 02-15-2013 01-28-2013 [facility] ([place] no information IRVIN JOSEPH (no [facility] - phone) (no phone) 01-28-2013 - 01-28-2013 12-03-2012 [facility] information [facility] ([facility] 12-03-2012 - 12-03-2012 11-24-2012 [facility] ([place] no information Doctor Migrati on (no [facility] - phone) (no phone) 11-24-2012 - 11-24-2012 11-23-2012 [facility] ([place] no information Doctor Migrati on (no [facility] - phone) (no phone) 11-23-2012 - 11-23-2012 11-19-2012 [facility] ([place] no information Doctor Migrati on (no [facility] - phone) (no phone) 11-19-2012 - 11-19-2012 10-30-2012 [facility] ([place] no information IRVIN JOSEPH (no [facility] - phone) (no phone) 10-30-2012 - 10-30-2012 09-23-2012 [facility] ([place] no information Doctor Migrati on (no [facility] - phone) (no phone) 09-23-2012 - 09-23-2012 09-13-2012 [facility] no information IRVIN JOSEPH (no [facility] - phone) (no phone) 09-13-2012 - 09-13-2012 08-26-2012 [facility] no information ADRIANA BRAND (no [facility] ([place] - phone) (no phone) 08-26-2012 - 08-26-2012 07-16-2012 [facility] ([place] no information Doctor Migrati on (no [facility] ([place] - phone) (no phone) 07-16-2012 - 07-16-2012 06-09-2012 [facility] no information IRVIN RUIZ (no [facility] ([place] - phone) Doctor (no phone) 06-09-2012 Migration (no phone) - Doctor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
--- OUTSIDE RECORDS SUMMARY | 2019-11-01 20:25 | XMS REPORT ---
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 Name Role Phone IRVIN RUIZ Unavailable PROBLEMS Type Condition ICD9-CM Code [id number] Code Onset Dates Condition S tatus SNOMED Code Problem Costochondritis 733.6 Active 6410 9004 Problem Grief reaction F43.21 Active 13597 5009 Problem Hyperlipidemia E78.5 Active 30272 004 Problem Unspecified cardiac dysrhythmia 427.9 Active 729373133 Problem Diabetes 250.00 Active 44162573 Problem Type 2 diabetes mellitus without complications E11 .9 Active 48532916 Problem Essential hypertension I10 Active 53855813 ALLERGIES No Information ENCOUNTERS Encounter Location Date Diagnosis [place] [address] [address] Jul, [place] [address] [address] Jun, Encounter for immunization Z23 [place] [address] [address] Mar, Type 2 diabetes mellitus without complic ations E11.9 [place] [address] [address] December, Insect bite (nonvenomous), left thigh, i nitial encounter S70.362A ; Local infection of the skin and subcutaneous tissue, unspecified L08.9 and Bitten or stung by nonvenomous insect and other nonvenomous arthropods, initial encounter W57.XXXA [place] [address] [address] December, [place] [address] [address] Nov, [facility] [place] [address] [address] Nov, [facility] [place] [address] [address] Oct, URI (upper respiratory infection) J06.9 ; Type 2 diabetes mellitus without complications E11.9 and Hyperlipidemia E78.5 [place] [address] [address] Aug, [facility] [place] [address] [address] Jun, Acute nasopharyngitis J00 [place] [address] [address] May, Encounter for immunization Z23 [place] [address] [address] Apr, [place] [address] [address] Apr, Type 2 diabetes mellitus without complic ations E11.9 [place] [address] [address] Apr, Type 2 diabetes mellitus without complic ations E11.9 ; Grief reaction F43.21 and Essential hypertension I10 [place] [address] [address] Mar, Type 2 diabetes mellitus without complic ations E11.9 [place] [address] [address] Mar, Type 2 diabetes mellitus without complic ations E11.9 [place] [address] [address] Feb, [facility] [place] [address] [address] Jan, [place] [address] [address] Nov, Type 2 diabetes mellitus without complic ations E11.9 [facility] [place] [address] [address] Oct, [facility] [place] [address] [address] Oct, Labia irritation N90.89 [facility] [place] [address] [address] Sep, [facility] [place] [address] [address] Sep, [facility] [place] [address] [address] Sep, [facility] [place] [address] [address] Aug, [facility] [place] [address] [address] Jul, [facility] [place] [address] [address] Jul, [facility] [place] [address] [address] Mar, Type 2 diabetes mellitus without complic ations E11.9 ; Acute pain of right knee M25.561 and Essential hypertension I10 [facility] [place] [address] [address] Mar, [facility] [place] [address] [address] Mar, Dysuria R30.0 [facility], [place] [address] [address] December, [facility] [place] [address] [address] Nov, [facility], [place] [address] [address] Nov, Dental examination Z01.20 [facility] [place] [address] [address] Nov, Dental examination Z01.20 [place] [address] [address] Nov, Non-intractable vomiting with nausea, un specified vomiting type R11.2 ; Arthralgia, unspecified joint M25.50 ; Fever, unspecified fever cause R50.9 ; Type 2 diabetes mellitus without complications E11.9 and Tooth pain K08.89 [place] [address] [address] Nov, Type 2 diabetes mellitus without complic ations E11.9 [place] [address] [address] Nov, Type 2 diabetes mellitus without complic ations E11.9 and Bronchitis J40 [place] [address] [address] Oct, Type 2 diabetes mellitus without complic ations E11.9 [place] [address] [address] Jul, [place] [address] [address] Jul, Dysuria R30.0 ; Hematuria R31.9 and Vagi nal pain R10.2 [place] [address] [address] Jul, Dysuria R30.0 ; Vaginal discharge N89.8 and Low back strain, initial encounter S39.012A [place] [address] [address] Jun, Bacterial conjunctivitis of right eye H1 0.9 ; Sore throat J02.9 and Acute non-recurrent maxillary sinusitis J01.00 [place] [address] [address] Jun, [place] [address] [address] May, [place] [address] [place] [id number] 27 Apr, 2016 [facility], [place] [address] [id number] [place] [address] 14 Apr, 2016 [facility], [place] [address] [id number] [place] [address] Apr, [facility] [place] [address] [id number] [place] [address] Apr, Type 2 diabetes mellitus without complic ations E11.9 [facility] [place] [address] [id number] [place] [address] Mar, [facility] [place] [address] [id number] [place] [address] Feb, Bronchitis J40 [facility] [place] [address] [place] [id number] [place] [address] Feb, Bronchitis J40 [facility] [place] [address] [place] [id number] [place] [address] Feb, Type 2 diabetes mellitus without complic ations E11.9 [facility] [place] [address] [id number] [place] [address] Feb, [facility] [place] [address] [id number] [place] [address] Feb, [facility] [place] [address] [id number] [place] [address] Feb, Type 2 diabetes mellitus without complic ations E11.9 and Dysuria R30.0 [facility] [place] [address] [place] [id number] [place] [address] Jan, Type 2 diabetes mellitus without complic ations E11.9 [facility] [place] [address] [place] [id number] [place] [address] Jan, Type 2 diabetes mellitus without complic ations E11.9 [facility] [place] [address] [id number] [place] [address] December, Type 2 diabetes mellitus without complic ations E11.9 [facility] [place] [address] [address] Nov, Type 2 diabetes mellitus without complic ations E11.9 [facility] [place] [address] [address] Oct, Type 2 diabetes mellitus without complic ations E11.9 ; Fever R50.9 ; Myalgia M79.1 and Cough R05 [place] [address] [address] Sep, Dysuria R30.0 and Cystitis N30.90 [place] [address] [address] Sep, [place] [address] [address] Sep, [facility] [address] [id number] Aug, Dental examination Z01.20 [place] [address] [address] Aug, Type 2 diabetes mellitus without complic ations E11.9 [place] [address] [address] Jul, Dysfunction of left eustachian tube H69. 82 [place] [address] [address] Jun, [facility] [place] [address] [address] Jun, Cellulitis L03.90 [facility] [place] [address] [address] Jun, [place] [address] [address] Jun, [facility] [place] [address] [address] Jun, [facility] [place] [address] [address] May, Dermatofibroma of ankle, right D23.71 [place] [address] [address] May, [place] [address] [address] Apr, Diabetes 250.00 and 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 [place] [address] [address] Apr, [place] [address] [address] Apr, [address] [address] Apr, Diabetes 250.00 ; Influenza vaccine admi nistered V04.81 and Allergic rhinitis 477.[address] [address] Mar, [place] [address] [address] Jan, [place] [address] [address] Jan, DM w/o complication type II 250.[address] [address] December, DM w/o complication type II 250.00 ; Stephen caneal spur 726.73 ; Vaginitis due to Amanda 112.1 and Onychomycosis 110.1 [place] [address] [address] 30 Nov, 2014 Amanda infection of genital region 112. [address] [address] Nov, [address] [address] Nov, [address] [address] Oct, [address] [id number] [place] [address] Oct, [facility] [place] [facility] [address] [id number] [place] [address] Sep, [facility] [place] [facility] [address] [id number] [place] [address] Sep, [facility] [place] [facility] [address] [id number] [place] [address] Jul, [facility] [place] [facility] [address] [id number] [place] [address] Jul, [facility] [place] [facility] [address] [id number] [place] [address] Jun, [facility] [place] [facility] [address] [id number] [place] [address] Jun, [facility] [place] [facility] [address] [id number] [place] [address] Jun, [facility] [place] [facility] [address] [id number] [place] [address] Jun, [facility] [place] [facility] [address] [id number] [place] [address] May, [facility] [place] [facility] [address] [id number] [place] [address] May, [facility] [place] [facility] [address] [id number] [place] [address] May, [facility] [place] [facility] [address] [id number] [place] [address] May, [facility] [place] [facility] [address] [id number] [place] [address] Apr, [facility] [place] [facility] [address] [id number] [place] [address] Apr, [facility] [place] [facility] [address] [id number] [place] [address] 08 Apr, 2014 [facility] [place] [facility] [address] [id number] [place] [address] Apr, [facility] [place] [facility] [address] [id number] [place] [address] Mar, [facility] [place] [facility] [address] [id number] [place] [address] Mar, [facility] [place] [facility] [address] [facility] [id number] [place] [address] Mar, [facility] [place] [facility] [address] [id number] [place] [address] Mar, [facility] [place] [facility] [address] [facility] [id number] [place] [address] Mar, [facility] [place] [facility] [address] [id number] [place] [address] Mar, [facility] [place] [facility] [address] [id number] [place] [address] Mar, [facility] [place] [facility] [address] [id number] [place] [address] Mar, [facility] [place] [facility] [address] [id number] [place] [address] Mar, [facility] [place] [facility] [address] [id number] [place] [address] Mar, [facility] [place] [facility] [address] [id number] [place] [address] Mar, [facility] [place] [facility] [address] [id number] [place] [address] Mar, [facility] [place] [facility] [address] [facility] [id number] [place] [address] Feb, [facility] [place] [facility] [address] [id number] [place] [address] Feb, [facility] [place] [facility] [address] [id number] [place] [address] Jan, [facility] [place] [facility] [address] [id number] [place] [address] Jan, [facility] [place] [facility] [address] [id number] [place] [address] Jan, [facility] [place] [facility] [address] [facility] [id number] [place] [address] Jan, [facility] [place] [facility] [address] [facility] [id number] [place] [address] December, [facility] [place] [facility] [address] [id number] [place] [address] December, [facility] [place] [facility] [address] [id number] [place] [address] December, [facility] [place] [facility] [address] [facility] [id number] [place] [address] December, [facility] [place] [facility] [address] [id number] [place] [address] Nov, [facility] [place] [facility] [address] [id number] [place] [address] Nov, [facility] [place] [facility] [address] [id number] [place] [address] Nov, [facility] [place] [facility] [address] [id number] [place] [address] Nov, [facility] [place] [facility] [address] [id number] [place] [address] Nov, [facility] [place] [facility] [address] [id number] [place] [address] Nov, [facility] [place] [facility] [address] [id number] [place] [address] Nov, [facility] [place] [facility] [address] [facility] [id number] [place] [address] Oct, [facility] [place] [facility] [address] [id number] [place] [address] Oct, [facility] [place] [facility] [address] [id number] [place] [address] Oct, [facility] [place] [facility] [address] [id number] [place] [address] Oct, [facility] [place] [facility] [address] [id number] [place] [address] Oct, [facility] [place] [facility] [address] [id number] [place] [address] Oct, [facility] [place] [facility] [address] [id number] [place] [address] Oct, [facility] [place] [facility] [address] [id number] [place] [address] Sep, [facility] [place] [facility] [address] [id number] [place] [address] Sep, [facility] [place] [facility] [address] [id number] [place] [address] Sep, [facility] [place] [facility] [address] [id number] [place] [address] Sep, [facility] [place] [facility] [address] [id number] [place] [address] Aug, [facility] [place] [facility] [address] [id number] [place] [address] Aug, [facility] [place] [facility] [address] [id number] [place] [address] Aug, [facility] [place] [facility] [address] [id number] [place] [address] Aug, [facility] [place] [facility] [address] [id number] [place] [address] Jul, [facility] [place] [facility] [address] [id number] [place] [address] Jul, [facility] [place] [facility] [address] [id number] [place] [address] Apr, [facility] [place] [facility] [address] [id number] [place] [address] Apr, [facility] [place] [facility] [address] [id number] [place] [address] Mar, [facility] [place] [facility] [address] [id number] [place] [address] Mar, [facility] [place] [facility] [address] [id number] [place] [address] Mar, [facility] [place] [facility] [address] [facility] [id number] [place] [address] Mar, [facility] [place] [facility] [address] [id number] [place] [address] Mar, [facility] [place] [facility] [address] [id number] [place] [address] Mar, [facility] [place] [facility] [address] [facility] [id number] [place] [address] Mar, [facility] [place] [facility] [address] [id number] [place] [address] Mar, [facility] [place] [facility] [address] [id number] [place] [address] Mar, [facility] [place] [facility] [address] [id number] [place] [address] Mar, [facility] [place] [facility] [address] [id number] [place] [address] Feb, [facility] [place] [facility] [address] [id number] [place] [address] Feb, [facility] [place] [facility] [address] [id number] [place] [address] Feb, [facility] [place] [facility] [address] [id number] [place] [address] Feb, [facility] [place] [facility] [address] [id number] [place] [address] Jan, [facility] [place] [facility] [address] [id number] [place] [address] 25 Nov, 2012 [facility] [place] [facility] [address] [id number] [place] [address] 16 Nov, 2012 [facility] [place] [facility] [address] [id number] [place] [address] 15 Nov, 2012 [facility] [place] [facility] [address] [id number] [place] [address] Nov, [facility] [place] [facility] [address] [id number] [place] [address] Oct, [facility] [place] [facility] [address] [id number] [place] [address] Sep, [facility] [place] [facility] [address] [id number] [place] [address] Sep, [facility] [place] [facility] [address] [id number] [place] [address] Aug, [facility] [place] [facility] [address] [id number] [place] [address] Jul, [facility] [place] [facility] [address] [id number] [place] [address] Jul, [facility] [place] [facility] [address] [id number] [place] [address] May, [facility] [place] [facility] [address] [id number] [place] [address] May, [facility] [place] [facility] [address] [id number] [place] [address] May, [facility] [place] [facility] [address] [id number] [place] [address] May, [facility] [place] [facility] [address] [id number] [place] [address] Apr, [facility] [place] [facility] [address] [id number] [place] [address] Mar, [facility] [place] [facility] [address] [id number] [place] [address] Mar, [facility] [place] [facility] [address] [place] [id number] [place] [address] Mar, [facility] [place] [facility] [address] [id number] [place] [address] Mar, [facility] [place] [facility] [address] [id number] [place] [address] Mar, [facility] [place] [facility] [address] [id number] [place] [address] Mar, [facility] [place] [facility] [address] [id number] [place] [address] Mar, [facility] [place] [facility] [address] [id number] [place] [address] Mar, [facility] [place] [facility] [address] [id number] [place] [address] Feb, [facility] [place] [facility] [address] [id number] [place] [address] Feb, [facility] [place] [facility] [address] [id number] [place] [address] Jan, [facility] [place] [facility] [address] [id number] [place] [address] December, [facility] [place] [facility] [address] [id number] [place] [address] December, [facility] [place] [address] [id number] [place] [address] Nov, [facility] [address] [id number] [place] [address] Nov, [facility] [address] [id number] [place] [address] Nov, [facility] [address] [id number] [place] [address] Nov, [facility] [address] [id number] [place] [address] Oct, [facility] [address] [id number] [place] [address] Sep, [facility] [address] [id number] [place] [address] Sep, [facility] [address] [id number] [place] [address] Sep, [facility] [address] [id number] [place] [address] 17 Sep, 2011 [facility] [address] [id number] [place] [address] 16 Sep, 2011 [facility] [address] [id number] [place] [address] 16 Sep, 2011 [facility] [address] [id number] [place] [address] 15 Sep, 2011 [facility] [address] [id number] [place] [address] 15 Sep, 2011 [facility] [address] [id number] [place] [address] Aug, [facility] [address] [id number] [place] [address] Jul, [facility] [address] [id number] [place] [address] 14 Jul, 2011 [facility] [address] [id number] [place] [address] 14 Jul, 2011 [facility] [address] [id number] [place] [address] Jun, [facility] [address] [id number] [place] [address] Jul, [facility] [address] [id number] [place] [address] Jul, [facility] [address] [id number] [place] [address] Jul, [facility] [address] [id number] [place] [address] Jul, [facility] [address] [id number] [place] [address] Jul, [facility] [address] [id number] [place] [address] May, [facility] [address] [id number] [place] [address] May, [facility] [place] [address] [id number] [place] [address] May, [facility] [place] [address] [id number] [place] [address] Apr, [facility] [place] [address] [id number] [place] [address] Jun, [facility] [place] [address] [id number] [place] [address] Jun, [facility] [place] [address] [id number] [place] [address] May, [facility] [place] [address] [id number] [place] [address] Jan, IMMUNIZATIONS No Known Immunizations SOCIAL HISTORY [...]
--- OUTSIDE RECORDS SUMMARY | 2019-11-01 20:25 | XMS REPORT ---
Author Author Nyasia RUIZ Organization [facility] Address [address] [place] [address] Care Team Providers Care Scalper Operator Name Role Phone IRVIN RUIZ Unavailable PROBLEMS Type Condition ICD9-CM Code POP47-BU Code Onset Dates Condition S tatus SNOMED Code Problem Costochondritis 733.6 Active 6410 9004 Problem Grief reaction F43.21 Active 86518 5009 Problem Hyperlipidemia E78.5 Active 70009 004 Problem Unspecified cardiac dysrhythmia 427.9 Active 212521928 Problem Diabetes 250.00 Active 85412502 Problem Type 2 diabetes mellitus without complications E11 .9 Active 34110130 Problem Essential hypertension I10 Active 84363432 ALLERGIES No Information ENCOUNTERS Encounter Location Date Diagnosis [place] [address] [address] Jul, [place] [address] [address] Jun, Encounter for immunization Z23 [place] [address] [address] Mar, Type 2 diabetes mellitus without complic ations E11.9 [place] [address] [address] December, Insect bite (nonvenomous), left thigh, i nitial encounter S70.362A ; Local infection of the skin and subcutaneous tissue, unspecified L08.9 and Bitten or stung by nonvenomous insect and other nonvenomous arthropods, initial encounter W57.XXXA [place] [address] [address] December, [place] [address] [address] Nov, [facility] [address] [address] Nov, [facility] [address] [address] Oct, URI (upper respiratory infection) J06.9 ; Type 2 diabetes mellitus without complications E11.9 and Hyperlipidemia E78.5 [place] [address] [address] Aug, [facility] [address] [address] Jun, Acute nasopharyngitis J00 [place] [address] [address] May, Encounter for immunization Z23 [place] [address] [address] Apr, [place] [address] [address] Apr, Type 2 diabetes mellitus without complic ations E11.9 [place] [address] [address] Apr, Type 2 diabetes mellitus without complic ations E11.9 ; Grief reaction F43.21 and Essential hypertension I10 [place] [address] [address] Mar, Type 2 diabetes mellitus without complic ations E11.9 [place] [address] [address] Mar, Type 2 diabetes mellitus without complic ations E11.9 [place] [address] [address] Feb, [facility] [address] [address] Jan, [place] [address] [address] Nov, Type 2 diabetes mellitus without complic ations E11.9 [facility] [address] [address] Oct, [facility] [address] [address] Oct, Labia irritation N90.89 [facility] [address] [address] Sep, [facility] [address] [address] Sep, [facility] [address] [address] Sep, [facility] [address] [address] Aug, [facility] [address] [address] Jul, [facility] [address] [address] Jul, [facility] [address] [address] Mar, Type 2 diabetes mellitus without complic ations E11.9 ; Acute pain of right knee M25.561 and Essential hypertension I10 [facility] [address] [address] Mar, [facility] [address] [address] Mar, Dysuria R30.0 [facility] [address] [address] December, [facility] [address] [address] Nov, [facility] [address] [address] Nov, Dental examination Z01.20 [facility] [address] [address] Nov, Dental examination Z01.20 [place] [address] [address] Nov, Non-intractable vomiting with nausea, un specified vomiting type R11.2 ; Arthralgia, unspecified joint M25.50 ; Fever, unspecified fever cause R50.9 ; Type 2 diabetes mellitus without complications E11.9 and Tooth pain K08.89 [place] [address] [address] Nov, Type 2 diabetes mellitus without complic ations E11.9 [place] [address] [address] Nov, Type 2 diabetes mellitus without complic ations E11.9 and Bronchitis J40 [place] [address] [address] Oct, Type 2 diabetes mellitus without complic ations E11.9 [place] [address] [address] Jul, [place] [address] [address] Jul, Dysuria R30.0 ; Hematuria R31.9 and Vagi nal pain R10.2 [place] [address] [address] Jul, Dysuria R30.0 ; Vaginal discharge N89.8 and Low back strain, initial encounter S39.012A [place] [address] [address] Jun, Bacterial conjunctivitis of right eye H1 0.9 ; Sore throat J02.9 and Acute non-recurrent maxillary sinusitis J01.00 [place] [address] [address] Jun, [place] [address] [address] May, [place] [address] [place] [id number] 27 Apr, 2016 [facility] [address] [id number] [place] [address] 14 Apr, 2016 [facility] [address] [id number] [place] [address] Apr, [facility] [address] [id number] [place] [address] Apr, Type 2 diabetes mellitus without complic ations E11.9 [facility] [address] [id number] [place] [address] Mar, [facility] [address] [id number] [place] [address] Feb, Bronchitis J40 [facility] [address] [place] [id number] [place] [address] Feb, Bronchitis J40 [facility] [address] [place] [id number] [place] [address] Feb, Type 2 diabetes mellitus without complic ations E11.9 [facility] [address] [id number] [place] [address] Feb, [facility] [address] [id number] [place] [address] Feb, [facility] [address] [id number] [place] [address] Feb, Type 2 diabetes mellitus without complic ations E11.9 and Dysuria R30.0 [facility] [address] [place] [id number] [place] [address] Jan, Type 2 diabetes mellitus without complic ations E11.9 [facility] [address] [place] [id number] [place] [address] Jan, Type 2 diabetes mellitus without complic ations E11.9 [facility] [address] [id number] [place] [address] December, Type 2 diabetes mellitus without complic ations E11.9 [facility] [address] [address] Nov, Type 2 diabetes mellitus without complic ations E11.9 [facility] [address] [address] Oct, Type 2 diabetes mellitus without complic ations E11.9 ; Fever R50.9 ; Myalgia M79.1 and Cough R05 [place] [address] [address] Sep, Dysuria R30.0 and Cystitis N30.90 [place] [address] [address] Sep, [place] [address] [address] Sep, [facility] [address] [id number] Aug, Dental examination Z01.20 [place] [address] [address] Aug, Type 2 diabetes mellitus without complic ations E11.9 [place] [address] [address] Jul, Dysfunction of left eustachian tube H69. 82 [place] [address] [address] Jun, [facility] [address] [address] Jun, Cellulitis L03.90 [facility] [address] [address] Jun, [place] [address] [address] Jun, [facility] [address] [address] Jun, [facility] [address] [address] May, Dermatofibroma of ankle, right D23.71 [place] [address] [address] May, [place] [address] [address] Apr, Diabetes 250.00 and 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 [place] [address] [address] Apr, [place] [address] [address] Apr, [address] [address] Apr, Diabetes 250.00 ; Influenza vaccine admi nistered V04.81 and Allergic rhinitis 477.[address] [address] Mar, [place] [address] [address] Jan, [place] [address] [address] Jan, DM w/o complication type II 250.[address] [address] December, DM w/o complication type II 250.00 ; Stephen caneal spur 726.73 ; Vaginitis due to Amanda 112.1 and Onychomycosis 110.1 [place] [address] [address] 30 Nov, 2014 Amanda infection of genital region 112. [address] [address] Nov, [address] [address] Nov, [address] [address] Oct, [address] [id number] [place] [address] Oct, [facility] [place] [facility] [address] [id number] [place] [address] Sep, [facility] [place] [facility] [address] [id number] [place] [address] Sep, [facility] [place] [facility] [address] [id number] [place] [address] Jul, [facility] [place] [facility] [address] [id number] [place] [address] Jul, [facility] [place] [facility] [address] [id number] [place] [address] Jun, [facility] [place] [facility] [address] [id number] [place] [address] Jun, [facility] [place] [facility] [address] [id number] [place] [address] Jun, [facility] [place] [facility] [address] [id number] [place] [address] Jun, [facility] [place] [facility] [address] [id number] [place] [address] May, [facility] [place] [facility] [address] [id number] [place] [address] May, [facility] [place] [facility] [address] [id number] [place] [address] May, [facility] [place] [facility] [address] [id number] [place] [address] May, [facility] [place] [facility] [address] [id number] [place] [address] Apr, [facility] [place] [facility] [address] [id number] [place] [address] Apr, [facility] [place] [facility] [address] [id number] [place] [address] 08 Apr, 2014 [facility] [place] [facility] [address] [id number] [place] [address] Apr, [facility] [place] [facility] [address] [id number] [facility] [place] [address] Mar, [facility] [place] [facility] [address] [id number] [place] [address] Mar, [facility] [place] [facility] [address] [facility] [place] [id number] [place] [address] Mar, [facility] [place] [facility] [address] [id number] [facility] [place] [address] Mar, [facility] [place] [facility] [address] [facility] [id number] [facility] [place] [address] Mar, [facility] [place] [facility] [address] [id number] [place] [address] Mar, [facility] [place] [facility] [address] [id number] [place] [address] Mar, [facility] [place] [facility] [address] [id number] [place] [address] Mar, [facility] [place] [facility] [address] [id number] [place] [address] Mar, [facility] [place] [facility] [address] [id number] [place] [address] Mar, [facility] [place] [facility] [address] [id number] [place] [address] Mar, [facility] [place] [facility] [address] [id number] [place] [address] Mar, [facility] [place] [facility] [address] [facility] [id number] [place] [address] Feb, [facility] [place] [facility] [address] [id number] [place] [address] Feb, [facility] [place] [facility] [address] [id number] [place] [address] Jan, [facility] [place] [facility] [address] [id number] [place] [address] Jan, [facility] [place] [facility] [address] [id number] [facility] [place] [address] Jan, [facility] [place] [facility] [address] [facility] [id number] [facility] [place] [address] Jan, [facility] [place] [facility] [address] [facility] [place] [id number] [place] [address] December, [facility] [place] [facility] [address] [id number] [place] [address] December, [facility] [place] [facility] [address] [id number] [place] [address] December, [facility] [place] [facility] [address] [facility] [id number] [facility] [place] [address] December, [facility] [place] [facility] [address] [id number] [place] [address] Nov, [facility] [place] [facility] [address] [id number] [place] [address] Nov, [facility] [place] [facility] [address] [id number] [place] [address] Nov, [facility] [place] [facility] [address] [id number] [place] [address] Nov, [facility] [place] [facility] [address] [id number] [place] [address] Nov, [facility] [place] [facility] [address] [id number] [place] [address] Nov, [facility] [place] [facility] [address] [id number] [place] [address] Nov, [facility] [place] [facility] [address] [facility] [id number] [place] [address] Oct, [facility] [place] [facility] [address] [id number] [place] [address] Oct, [facility] [place] [facility] [address] [id number] [place] [address] Oct, [facility] [place] [facility] [address] [id number] [place] [address] Oct, [facility] [place] [facility] [address] [id number] [place] [address] Oct, [facility] [place] [facility] [address] [id number] [place] [address] Oct, [facility] [place] [facility] [address] [id number] [place] [address] Oct, [facility] [place] [facility] [address] [id number] [place] [address] Sep, [facility] [place] [facility] [address] [id number] [place] [address] Sep, [facility] [place] [facility] [address] [id number] [place] [address] Sep, [facility] [place] [facility] [address] [id number] [place] [address] Sep, [facility] [place] [facility] [address] [id number] [place] [address] Aug, [facility] [place] [facility] [address] [id number] [place] [address] Aug, [facility] [place] [facility] [address] [id number] [place] [address] Aug, [facility] [place] [facility] [address] [id number] [place] [address] Aug, [facility] [place] [facility] [address] [id number] [place] [address] Jul, [facility] [place] [facility] [address] [id number] [place] [address] Jul, [facility] [place] [facility] [address] [id number] [place] [address] Apr, [facility] [place] [facility] [address] [id number] [place] [address] Apr, [facility] [place] [facility] [address] [id number] [place] [address] Mar, [facility] [place] [facility] [address] [id number] [place] [address] Mar, [facility] [place] [facility] [address] [id number] [facility] [place] [address] Mar, [facility] [place] [facility] [address] [facility] [id number] [facility] [place] [address] Mar, [facility] [place] [facility] [address] [id number] [facility] [place] [address] Mar, [facility] [place] [facility] [address] [id number] [facility] [place] [address] Mar, [facility] [place] [facility] [address] [facility] [id number] [facility] [place] [address] Mar, [facility] [place] [facility] [address] [id number] [facility] [place] [address] Mar, [facility] [place] [facility] [address] [id number] [place] [address] Mar, [facility] [place] [facility] [address] [id number] [facility] [place] [address] Mar, [facility] [place] [facility] [address] [id number] [place] [address] Feb, [facility] [place] [facility] [address] [id number] [facility] [place] [address] Feb, [facility] [place] [facility] [address] [id number] [place] [address] Feb, [facility] [place] [facility] [address] [id number] [place] [address] Feb, [facility] [place] [facility] [address] [id number] [place] [address] Jan, [facility] [place] [facility] [address] [id number] [place] [address] 25 Nov, 2012 [facility] [place] [facility] [address] [id number] [place] [address] 16 Nov, 2012 [facility] [place] [facility] [address] [id number] [place] [address] 15 Nov, 2012 [facility] [place] [facility] [address] [id number] [place] [address] Nov, [facility] [place] [facility] [address] [id number] [place] [address] Oct, [facility] [place] [facility] [address] [id number] [place] [address] Sep, [facility] [place] [facility] [address] [id number] [place] [address] Sep, [facility] [place] [facility] [address] [id number] [place] [address] Aug, [facility] [place] [facility] [address] [id number] [place] [address] Jul, [facility] [place] [facility] [address] [id number] [place] [address] Jul, [facility] [place] [facility] [address] [id number] [place] [address] May, [facility] [place] [facility] [address] [id number] [place] [address] May, [facility] [place] [facility] [address] [id number] [place] [address] May, [facility] [place] [facility] [address] [id number] [place] [address] May, [facility] [place] [facility] [address] [id number] [place] [address] Apr, [facility] [place] [facility] [address] [id number] [place] [address] Mar, [facility] [place] [facility] [address] [id number] [place] [address] Mar, [facility] [place] [facility] [address] [place] [id number] [place] [address] Mar, [facility] [place] [facility] [address] [id number] [place] [address] Mar, [facility] [place] [facility] [address] [id number] [place] [address] Mar, [facility] [place] [facility] [address] [id number] [place] [address] Mar, [facility] [place] [facility] [address] [id number] [place] [address] Mar, [facility] [place] [facility] [address] [id number] [place] [address] Mar, [facility] [place] [facility] [address] [id number] [place] [address] Feb, [facility] [place] [facility] [address] [id number] [place] [address] Feb, [facility] [place] [facility] [address] [id number] [place] [address] Jan, [facility] [place] [facility] [address] [id number] [place] [address] December, [facility] [place] [facility] [address] [id number] [place] [address] December, [facility] [place] [facility] [address] [id number] [place] [address] Nov, [facility] [address] [id number] [place] [address] Nov, [facility] [address] [id number] [place] [address] Nov, [facility] [address] [id number] [place] [address] Nov, [facility] [address] [id number] [place] [address] Oct, [facility] [address] [id number] [place] [address] Sep, [facility] [address] [id number] [place] [address] Sep, [facility] [address] [id number] [place] [address] Sep, [facility] [address] [id number] [place] [address] 17 Sep, 2011 [facility] [address] [id number] [place] [address] 16 Sep, 2011 [facility] [address] [id number] [place] [address] 16 Sep, 2011 [facility] [address] [id number] [place] [address] 15 Sep, 2011 [facility] [address] [id number] [place] [address] 15 Sep, 2011 [facility] [address] [id number] [place] [address] Aug, [facility] [address] [id number] [place] [address] Jul, [facility] [address] [id number] [place] [address] 14 Jul, 2011 [facility] [address] [id number] [place] [address] 14 Jul, 2011 [facility] [address] [id number] [place] [address] Jun, [facility] [address] [id number] [place] [address] Jul, [facility] [address] [id number] [place] [address] Jul, [facility] [address] [id number] [place] [address] Jul, [facility] [address] [id number] [place] [address] Jul, [facility] [address] [id number] [place] [address] Jul, [facility] [address] [id number] [place] [address] May, [facility] [address] [id number] [place] [address] May, [facility] [address] [id number] [place] [address] May, [facility] [address] [id number] [place] [address] Apr, [facility] [address] [id number] [place] [address] Jun, [facility] [address] [id number] [place] [address] Jun, [facility] [address] [id number] [place] [address] May, [facility] [address] [id number] [place] [address] Jan, IMMUNIZATIONS No Known Immunizations SOCIAL HISTORY Never Assessed REASON FOR VISIT PLAN OF CARE VITAL SIGNS Height 63 in 2013-11-22 Weight 193.4 lbs 2013-11-22 Temperature 97 degrees Fahrenheit 2013-11-22 Heart Rate 78 bpm 2013-11-22 Respiratory Rate 18 2013-11-22 Blood pressure systolic 110 mmHg 2013-11-22 Blood pressure diastolic 78 mmHg 2013-11-22 MEDICATIONS Unknown Medications RESULTS No Results PROCEDURES [...]
--- OUTSIDE RECORDS SUMMARY | 2019-11-01 20:25 | XMS REPORT ---
Author Author Nyasia RUIZ [facility] Address [address] [place] [address] Care Team Providers Care Occupational Ther Name Role Phone IRVIN RUIZ Unavailable PROBLEMS Type Condition ICD9-CM Code PYI49-TM Code Onset Dates Condition S tatus SNOMED Code Problem Grief reaction F43.21 Active 90536 5009 Problem Hyperlipidemia E78.5 Active 69020 004 Problem Type 2 diabetes mellitus without complications E11 .9 Active 07328177 Problem Essential hypertension I10 Active [id number] ALLERGIES No Information ENCOUNTERS Encounter Location Date Diagnosis [place] [address] [address] Oct, [place] [address] [address] 12 Sep, 2019 Breast pain, left N64.4 and Type 2 diabe yoanna mellitus without complications E11.9 [place] [address] [address] 12 Sep, 2019 [place] [address] [address] Sep, [place] [address] [address] Sep, Vaginal irritation N89.8 and Screening f or cervical cancer Z12.4 [place] [address] [address] Jul, [place] [address] [address] Jun, Encounter for immunization Z23 [place] [address] [address] Mar, Type 2 diabetes mellitus without complic ations E11.9 [place] [address] [address] December, Insect bite (nonvenomous), left thigh, i nitial encounter S70.362A ; Local infection of the skin and subcutaneous tissue, unspecified L08.9 and Bitten or stung by nonvenomous insect and other nonvenomous arthropods, initial encounter W57.XXXA [place] [address] [address] December, [place] [address] [address] Nov, [place] [address] [address] Nov, [place] [address] [address] Oct, URI (upper respiratory infection) J06.9 ; Type 2 diabetes mellitus without complications E11.9 and Hyperlipidemia E78.5 [place] [address] [address] Aug, [place] [address] [address] Jun, Acute nasopharyngitis J00 [place] [address] [address] May, Encounter for immunization Z23 [place] [address] [address] Apr, [place] [address] [address] Apr, Type 2 diabetes mellitus without complic ations E11.9 [place] [address] [address] Apr, Type 2 diabetes mellitus without complic ations E11.9 ; Grief reaction F43.21 and Essential hypertension I10 [place] [address] [address] Mar, Type 2 diabetes mellitus without complic ations E11.9 [facility] [id number] [place] [address] Mar, Type 2 diabetes mellitus without complic ations E11.9 [facility] [id number] [place] [address] Feb, [facility] [address] [address] Jan, [facility] [address] [address] Nov, Type 2 diabetes mellitus without complic ations E11.9 [facility] [address] [address] Oct, [facility] [address] [address] Oct, Labia irritation N90.89 [facility] [address] [address] Sep, [facility] [address] [place] [address] Sep, [facility] [address] [address] Sep, [facility] [address] [address] Aug, [facility] [address] [address] Jul, [facility] [address] [place] [address] Jul, [facility] [address] [address] Mar, Type 2 diabetes mellitus without complic ations E11.9 ; Acute pain of right knee M25.561 and Essential hypertension I10 [facility] [address] [place] [address] Mar, [place] [address] [address] Mar, Dysuria R30.0 [place] [address] [address] December, [place] [address] [address] Nov, [place] [address] [address] Nov, Dental examination Z01.20 [place] [address] [address] Nov, Dental examination Z01.20 [place] [address] [address] Nov, Non-intractable vomiting with nausea, un specified vomiting type R11.2 ; Arthralgia, unspecified joint M25.50 ; Fever, unspecified fever cause R50.9 ; Type 2 diabetes mellitus without complications E11.9 and Tooth pain K08.89 [place] [address] [address] Nov, Type 2 diabetes mellitus without complic ations E11.9 [place] [address] [address] Nov, Type 2 diabetes mellitus without complic ations E11.9 and Bronchitis J40 [place] [address] [address] Oct, Type 2 diabetes mellitus without complic ations E11.9 [place] [address] [address] Jul, [place] [address] [address] Jul, Dysuria R30.0 ; Hematuria R31.9 and Vagi nal pain R10.2 [place] [address] [address] Jul, Dysuria R30.0 ; Vaginal discharge N89.8 and Low back strain, initial encounter S39.012A [facility] [id number] [place] [address] Jun, Bacterial conjunctivitis of right eye H1 0.9 ; Sore throat J02.9 and Acute non-recurrent maxillary sinusitis J01.00 [facility] [address] [place] [address] Jun, [facility] [address] [place] [address] May, [facility] [address] [place] [address] Apr, [facility] [address] [address] Apr, [facility] [address] [address] Apr, [facility] [address] [address] Apr, Type 2 diabetes mellitus without complic ations E11.9 [facility] [address] [place] [address] Mar, [facility] [address] [address] Feb, Bronchitis J40 [facility] [address] [address] Feb, Bronchitis J40 [facility] [address] [place] [address] Feb, Type 2 diabetes mellitus without complic ations E11.9 [facility] [address] [place] [address] Feb, [facility] [address] [place] [address] Feb, [facility] [address] [place] [address] Feb, Type 2 diabetes mellitus without complic ations E11.9 and Dysuria R30.0 [place] [address] [address] [place] [address] Jan, Type 2 diabetes mellitus without complic ations E11.9 [place] [address] [address] 14 Jan, 2016 Type 2 diabetes mellitus without complic ations E11.9 [place] [address] [address] December, Type 2 diabetes mellitus without complic ations E11.9 [place] [address] [address] Nov, Type 2 diabetes mellitus without complic ations E11.9 [place] [address] [address] Oct, Type 2 diabetes mellitus without complic ations E11.9 ; Fever R50.9 ; Myalgia M79.1 and Cough R05 [place] [address] [address] Sep, Dysuria R30.0 and Cystitis N30.90 [place] [address] [address] 05 Sep, 2015 [place] [address] [address] Sep, [facility] [id number] [place] [id number] Aug, Dental examination Z01.20 [place] [address] [address] Aug, Type 2 diabetes mellitus without complic ations E11.9 [place] [address] [address] Jul, Dysfunction of left eustachian tube H69. 82 [place] [address] [address] Jun, [place] [address] [address] Jun, Cellulitis L03.90 [place] [address] [address] Jun, [place] [address] [address] Jun, [place] [address] [address] Jun, [place] [address] [address] May, Dermatofibroma of ankle, right D23.71 [place] [address] [address] May, [place] [address] [address] Apr, Diabetes 250.00 and 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 [place] [address] [address] Apr, [place] [address] [address] Apr, [place] [address] [address] Apr, Diabetes 250.00 ; Influenza vaccine admi nistered V04.81 and Allergic rhinitis 477.9 [place] [address] [address] Mar, [place] [address] [address] Jan, [place] [address] [address] Jan, DM w/o complication type II 250.00 [place] [address] [address] December, DM w/o complication type II 250.00 ; Stephen caneal spur 726.73 ; Vaginitis due to Amanda 112.1 and Onychomycosis 110.1 [facility] [id number] [place] [address] 30 Nov, 2014 Amanda infection of genital region 112. 2 [facility] [id number] [place] [address] 14 Nov, 2014 [facility] [id number] [place] [address] 13 Nov, 2014 [facility] [address] [place] [address] 10 Oct, 2014 [facility] [address] [address] Oct, [facility] [address] [address] 24 Sep, 2014 [facility] [id number] [place] [address] Sep, [facility] [id number] [place] [address] Jul, [facility] [id number] [place] [address] Jul, [facility] [address] [address] Jun, [facility] [id number] [place] [address] Jun, [facility] [id number] [place] [address] Jun, [facility] [id number] [place] [address] Jun, [facility] [address] [place] [address] May, [facility] [address] [place] [address] May, [facility] [address] [place] [address] May, [facility] [place] [facility] [address] [id number] [facility] [place] [address] May, [facility] [place] [facility] [address] [id number] [place] [address] Apr, [facility] [place] [facility] [address] [facility] [id number] [facility] [place] [address] Apr, [facility] [place] [facility] [address] [id number] [place] [address] Apr, [facility] [place] [facility] [address] [facility] [id number] [place] [address] Apr, [facility] [place] [facility] [address] [id number] [facility] [place] [address] Mar, [facility] [place] [facility] [address] [facility] [id number] [facility] [place] [address] Mar, [facility] [place] [facility] [address] [id number] [facility] [place] [address] Mar, [facility] [place] [facility] [address] [facility] [id number] [facility] [place] [address] Mar, [facility] [place] [facility] [address] [id number] [facility] [place] [address] Mar, [facility] [place] [facility] [address] [facility] [id number] [place] [address] Mar, [facility] [place] [facility] [address] [id number] [place] [address] Mar, [facility] [place] [facility] [address] [facility] [id number] [facility] [place] [address] Mar, [facility] [place] [facility] [address] [id number] [place] [address] Mar, [facility] [place] [facility] [address] [facility] [id number] [place] [address] Mar, [facility] [place] [facility] [address] [id number] [place] [address] Mar, [facility] [place] [facility] [address] [facility] [id number] [place] [address] Mar, [facility] [place] [facility] [address] [id number] [facility] [place] [address] Feb, [facility] [place] [facility] [address] [facility] [id number] [place] [address] Feb, [facility] [place] [facility] [address] [id number] [place] [address] Jan, [facility] [place] [facility] [address] [id number] [place] [address] Jan, [facility] [place] [facility] [address] [id number] [place] [address] Jan, [facility] [place] [facility] [address] [id number] [place] [address] Jan, [facility] [place] [facility] [address] [id number] [place] [address] December, [facility] [place] [facility] [address] [id number] [place] [address] December, [facility] [place] [facility] [address] [id number] [place] [address] December, [facility] [place] [facility] [address] [id number] [place] [address] December, [facility] [place] [facility] [address] [id number] [place] [address] Nov, [facility] [place] [facility] [address] [id number] [place] [address] Nov, [facility] [place] [facility] [address] [id number] [place] [address] Nov, [facility] [place] [facility] [address] [id number] [place] [address] Nov, [facility] [place] [facility] [address] [id number] [place] [address] Nov, [facility] [place] [facility] [address] [id number] [place] [address] Nov, [facility] [place] [facility] [address] [id number] [place] [address] Nov, [facility] [place] [facility] [address] [id number] [place] [address] Oct, [facility] [place] [facility] [address] [id number] [place] [address] Oct, [facility] [place] [facility] [address] [id number] [place] [address] Oct, [facility] [place] [facility] [address] [id number] [place] [address] Oct, [facility] [place] [facility] [address] [id number] [place] [address] Oct, [facility] [place] [facility] [address] [id number] [place] [address] Oct, [facility] [place] [facility] [address] [id number] [place] [address] Oct, [facility] [place] [facility] [address] [id number] [place] [address] Sep, [facility] [place] [facility] [address] [id number] [place] [address] Sep, [facility] [place] [facility] [address] [id number] [place] [address] Sep, [facility] [place] [facility] [address] [id number] [place] [address] Sep, [facility] [place] [facility] [address] [id number] [place] [address] Aug, [facility] [place] [facility] [address] [id number] [place] [address] Aug, [facility] [place] [facility] [address] [id number] [place] [address] Aug, [facility] [place] [facility] [address] [id number] [place] [address] Aug, [facility] [place] [facility] [address] [id number] [place] [address] Jul, [facility] [place] [facility] [address] [facility] [id number] [place] [address] Jul, [facility] [place] [facility] [address] [facility] [id number] [facility] [place] [address] Apr, [facility] [place] [facility] [address] [id number] [place] [address] Apr, [facility] [place] [facility] [address] [id number] [place] [address] Mar, [facility] [place] [facility] [address] [facility] [id number] [facility] [place] [address] Mar, [facility] [place] [facility] [address] [id number] [place] [address] Mar, [facility] [place] [facility] [address] [id number] [place] [address] Mar, [facility] [place] [facility] [address] [id number] [place] [address] Mar, [facility] [place] [facility] [address] [id number] [place] [address] Mar, [facility] [place] [facility] [address] [id number] [place] [address] Mar, [facility] [place] [facility] [address] [id number] [place] [address] Mar, [facility] [place] [facility] [address] [id number] [place] [address] Mar, [facility] [place] [facility] [address] [id number] [place] [address] Mar, [facility] [place] [facility] [address] [id number] [place] [address] Feb, [facility] [place] [facility] [address] [id number] [place] [address] Feb, [facility] [place] [facility] [address] [id number] [place] [address] Feb, [facility] [place] [facility] [address] [id number] [place] [address] 08 Feb, 2013 [facility] [place] [facility] [address] [id number] [place] [address] Jan, [facility] [place] [facility] [address] [id number] [place] [address] 25 Nov, 2012 [facility] [place] [facility] [address] [id number] [place] [address] 16 Nov, 2012 [facility] [place] [facility] [address] [id number] [place] [address] 15 Nov, 2012 [facility] [place] [facility] [address] [id number] [place] [address] Nov, [facility] [place] [facility] [address] [id number] [place] [address] Oct, [facility] [place] [facility] [id number] [place] [address] Sep, [facility] [place] [facility] [id number] [place] [address] Sep, [facility] [place] [facility] [address] [id number] [place] [address] Aug, [facility] [place] [facility] [address] [id number] [place] [address] Jul, [facility] [place] [facility] [id number] [place] [address] Jul, [facility] [place] [facility] [address] [id number] [place] [address] May, [facility] [place] [facility] [address] [id number] [place] [address] May, [facility] [place] [facility] [id number] [place] [address] May, [facility] [place] [facility] [address] [id number] [place] [address] May, [facility] [place] [facility] [id number] [place] [address] Apr, [facility] [place] [facility] [address] [id number] [place] [address] Mar, [facility] [place] [facility] [address] [id number] [place] [address] Mar, [facility] [place] [facility] [address] [id number] [place] [address] Mar, [facility] [place] [facility] [address] [id number] [place] [address] Mar, [facility] [place] [facility] [address] [id number] [place] [address] Mar, [facility] [place] [facility] [address] [id number] [place] [address] Mar, [facility] [place] [facility] [address] [id number] [place] [address] Mar, [facility] [place] [facility] [address] [id number] [place] [address] Mar, [facility] [place] [facility] [address] [id number] [place] [address] Feb, [facility] [place] [facility] [address] [id number] [place] [address] Feb, [facility] [place] [facility] [address] [id number] [place] [address] Jan, [facility] [place] [facility] [address] [id number] [place] [address] December, [facility] [place] [facility] [address] [id number] [place] [address] December, [facility] [place] [facility] [address] [id number] [place] [address] Nov, [facility] [place] [facility] [address] [id number] [place] [address] Nov, [facility] [place] [facility] [address] [id number] [place] [address] 18 Nov, 2011 [facility] [place] [facility] [address] [id number] [place] [address] Nov, [facility] [place] [facility] [address] [id number] [place] [address] Oct, [facility] [place] [facility] [address] [id number] [place] [address] 29 Sep, 2011 [facility] [place] [facility] [address] [id number] [place] [address] Sep, [facility] [place] [facility] [address] [id number] [place] [address] Sep, [facility] [place] [facility] [address] [id number] [place] [address] Sep, [facility] [place] [facility] [address] [id number] [place] [address] 16 Sep, 2011 [facility] [address] [id number] [place] [address] 16 Sep, 2011 [facility] [id number] [place] [address] 15 Sep, 2011 [facility] [address] [id number] [place] [address] Sep, [facility] [address] [id number] [place] [address] Aug, [facility] [address] [id number] [place] [address] Jul, [facility] [address] [id number] [place] [address] Jul, [facility] [address] [id number] [place] [address] Jul, [facility] [id number] [place] [address] Jun, [facility] [address] [id number] [place] [address] Jul, [facility] [address] [id number] [place] [address] Jul, [facility] [address] [id number] [place] [address] Jul, [facility] [address] [id number] [place] [address] Jul, [facility] [address] [id number] [place] [address] Jul, [facility] [address] [id number] [place] [address] May, [facility] [address] [id number] [place] [address] May, [facility] [address] [id number] [place] [address] May, [facility] [address] [id number] [place] [address] Apr, [facility] [id number] [place] [address] Jun, [facility] [address] [id number] [place] [address] Jun, [facility] [address] [id number] [place] [address] May, [facility] [address] [id number] [place] [address] Jan, IMMUNIZATIONS No Known Immunizations SOCIAL HISTORY [...]
--- OUTSIDE RECORDS SUMMARY | 2019-11-01 20:25 | XMS REPORT ---
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 Name Role Phone IRVIN RUIZ Unavailable PROBLEMS Type Condition ICD9-CM Code ZHC48-BC Code Onset Dates Condition S tatus SNOMED Code Problem Costochondritis 733.6 Active 6410 9004 Problem Grief reaction F43.21 Active 31117 5009 Problem Hyperlipidemia E78.5 Active 95065 004 Problem Unspecified cardiac dysrhythmia 427.9 Active 406266996 Problem Diabetes 250.00 Active 34763654 Problem Type 2 diabetes mellitus without complications E11 .9 Active 26107466 Problem Essential hypertension I10 Active [id number] ALLERGIES No Information ENCOUNTERS Encounter Location Date Diagnosis [place] [address] [address] Jul, [place] [address] [address] Jun, Encounter for immunization Z23 [place] [address] [address] Mar, Type 2 diabetes mellitus without complic ations E11.9 [place] [address] [address] December, Insect bite (nonvenomous), left thigh, i nitial encounter S70.362A ; Local infection of the skin and subcutaneous tissue, unspecified L08.9 and Bitten or stung by nonvenomous insect and other nonvenomous arthropods, initial encounter W57.XXXA [place] [address] [address] December, [place] [address] [address] Nov, [facility] [address] [address] Nov, [facility] [address] [address] Oct, URI (upper respiratory infection) J06.9 ; Type 2 diabetes mellitus without complications E11.9 and Hyperlipidemia E78.5 [place] [address] [address] Aug, [facility] [address] [address] Jun, Acute nasopharyngitis J00 [place] [address] [address] May, Encounter for immunization Z23 [place] [address] [address] Apr, [place] [address] [address] Apr, Type 2 diabetes mellitus without complic ations E11.9 [place] [address] [address] Apr, Type 2 diabetes mellitus without complic ations E11.9 ; Grief reaction F43.21 and Essential hypertension I10 [place] [address] [address] Mar, Type 2 diabetes mellitus without complic ations E11.9 [place] [address] [address] Mar, Type 2 diabetes mellitus without complic ations E11.9 [place] [address] [address] Feb, [facility] [address] [address] Jan, [place] [address] [address] Nov, Type 2 diabetes mellitus without complic ations E11.9 [facility] [address] [address] Oct, [facility] [address] [address] Oct, Labia irritation N90.89 [facility] [address] [address] Sep, [facility] [address] [address] Sep, [facility] [address] [address] Sep, [facility] [address] [address] Aug, [facility] [address] [address] Jul, [facility] [address] [address] Jul, [facility] [address] [address] Mar, Type 2 diabetes mellitus without complic ations E11.9 ; Acute pain of right knee M25.561 and Essential hypertension I10 [facility] [address] [address] Mar, [facility] [address] [address] Mar, Dysuria R30.0 [facility] [address] [address] December, [facility] [address] [address] Nov, [facility] [address] [address] Nov, Dental examination Z01.20 [facility] [address] [address] Nov, Dental examination Z01.20 [place] [address] [address] Nov, Non-intractable vomiting with nausea, un specified vomiting type R11.2 ; Arthralgia, unspecified joint M25.50 ; Fever, unspecified fever cause R50.9 ; Type 2 diabetes mellitus without complications E11.9 and Tooth pain K08.89 [place] [address] [address] Nov, Type 2 diabetes mellitus without complic ations E11.9 [place] [address] [address] Nov, Type 2 diabetes mellitus without complic ations E11.9 and Bronchitis J40 [place] [address] [address] Oct, Type 2 diabetes mellitus without complic ations E11.9 [place] [address] [address] Jul, [place] [address] [address] Jul, Dysuria R30.0 ; Hematuria R31.9 and Vagi nal pain R10.2 [place] [address] [address] Jul, Dysuria R30.0 ; Vaginal discharge N89.8 and Low back strain, initial encounter S39.012A [place] [address] [address] Jun, Bacterial conjunctivitis of right eye H1 0.9 ; Sore throat J02.9 and Acute non-recurrent maxillary sinusitis J01.00 [place] [address] [address] Jun, [place] [address] [address] May, [place] [address] [place] [id number] 27 Apr, 2016 [facility] [address] [id number] [place] [address] 14 Apr, 2016 [facility] [address] [id number] [place] [address] Apr, [facility] [address] [id number] [place] [address] Apr, Type 2 diabetes mellitus without complic ations E11.9 [facility] [address] [id number] [place] [address] Mar, [facility] [address] [id number] [place] [address] Feb, Bronchitis J40 [facility] [address] [place] [id number] [place] [address] Feb, Bronchitis J40 [facility] [address] [place] [id number] [place] [address] Feb, Type 2 diabetes mellitus without complic ations E11.9 [facility] [address] [id number] [place] [address] Feb, [facility] [address] [id number] [place] [address] Feb, [facility] [address] [id number] [place] [address] Feb, Type 2 diabetes mellitus without complic ations E11.9 and Dysuria R30.0 [facility] [address] [place] [id number] [place] [address] Jan, Type 2 diabetes mellitus without complic ations E11.9 [facility] [address] [place] [id number] [place] [address] Jan, Type 2 diabetes mellitus without complic ations E11.9 [facility] [address] [id number] [place] [address] December, Type 2 diabetes mellitus without complic ations E11.9 [facility] [address] [address] Nov, Type 2 diabetes mellitus without complic ations E11.9 [facility] [address] [address] Oct, Type 2 diabetes mellitus without complic ations E11.9 ; Fever R50.9 ; Myalgia M79.1 and Cough R05 [place] [address] [address] Sep, Dysuria R30.0 and Cystitis N30.90 [place] [address] [address] Sep, [place] [address] [address] Sep, [facility] [address] [id number] Aug, Dental examination Z01.20 [place] [address] [address] Aug, Type 2 diabetes mellitus without complic ations E11.9 [place] [address] [address] Jul, Dysfunction of left eustachian tube H69. 82 [place] [address] [address] Jun, [facility] [address] [address] Jun, Cellulitis L03.90 [facility] [address] [address] Jun, [place] [address] [address] Jun, [facility] [address] [address] Jun, [facility] [address] [address] May, Dermatofibroma of ankle, right D23.71 [place] [address] [address] May, [place] [address] [address] Apr, Diabetes 250.00 and 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 [place] [address] [address] Apr, [place] [address] [address] Apr, [address] [address] Apr, Diabetes 250.00 ; Influenza vaccine admi nistered V04.81 and Allergic rhinitis 477.[address] [address] Mar, [place] [address] [address] Jan, [place] [address] [address] Jan, DM w/o complication type II 250.[address] [address] December, DM w/o complication type II 250.00 ; Stephen caneal spur 726.73 ; Vaginitis due to Amanda 112.1 and Onychomycosis 110.1 [place] [address] [address] 30 Nov, 2014 Amanda infection of genital region 112. [address] [address] Nov, [address] [address] Nov, [address] [address] Oct, [address] [id number] [place] [address] Oct, [facility] [place] [facility] [address] [id number] [place] [address] Sep, [facility] [place] [facility] [address] [id number] [place] [address] Sep, [facility] [place] [facility] [address] [id number] [place] [address] Jul, [facility] [place] [facility] [address] [id number] [place] [address] Jul, [facility] [place] [facility] [address] [id number] [place] [address] Jun, [facility] [place] [facility] [address] [id number] [place] [address] Jun, [facility] [place] [facility] [address] [id number] [place] [address] Jun, [facility] [place] [facility] [address] [id number] [place] [address] Jun, [facility] [place] [facility] [address] [id number] [place] [address] May, [facility] [place] [facility] [address] [id number] [place] [address] May, [facility] [place] [facility] [address] [id number] [place] [address] May, [facility] [place] [facility] [address] [id number] [place] [address] May, [facility] [place] [facility] [address] [id number] [place] [address] Apr, [facility] [place] [facility] [address] [id number] [place] [address] Apr, [facility] [place] [facility] [address] [id number] [place] [address] 08 Apr, 2014 [facility] [place] [facility] [address] [id number] [place] [address] Apr, [facility] [place] [facility] [address] [id number] [facility] [place] [address] Mar, [facility] [place] [facility] [address] [id number] [place] [address] Mar, [facility] [place] [facility] [address] [facility] [id number] [place] [address] Mar, [facility] [place] [facility] [address] [id number] [facility] [place] [address] Mar, [facility] [place] [facility] [address] [facility] [id number] [facility] [place] [address] Mar, [facility] [place] [facility] [address] [id number] [place] [address] Mar, [facility] [place] [facility] [address] [id number] [place] [address] Mar, [facility] [place] [facility] [address] [id number] [place] [address] Mar, [facility] [place] [facility] [address] [id number] [place] [address] Mar, [facility] [place] [facility] [address] [id number] [place] [address] Mar, [facility] [place] [facility] [address] [id number] [place] [address] Mar, [facility] [place] [facility] [address] [id number] [place] [address] Mar, [facility] [place] [facility] [address] [facility] [id number] [place] [address] Feb, [facility] [place] [facility] [address] [id number] [place] [address] Feb, [facility] [place] [facility] [address] [id number] [place] [address] Jan, [facility] [place] [facility] [address] [id number] [place] [address] Jan, [facility] [place] [facility] [address] [id number] [facility] [place] [address] Jan, [facility] [place] [facility] [address] [facility] [id number] [facility] [place] [address] Jan, [facility] [place] [facility] [address] [facility] [id number] [place] [address] December, [facility] [place] [facility] [address] [id number] [place] [address] December, [facility] [place] [facility] [address] [id number] [place] [address] December, [facility] [place] [facility] [address] [facility] [id number] [facility] [place] [address] December, [facility] [place] [facility] [address] [id number] [place] [address] Nov, [facility] [place] [facility] [address] [id number] [place] [address] Nov, [facility] [place] [facility] [address] [id number] [place] [address] Nov, [facility] [place] [facility] [address] [id number] [place] [address] Nov, [facility] [place] [facility] [address] [id number] [place] [address] Nov, [facility] [place] [facility] [address] [id number] [place] [address] Nov, [facility] [place] [facility] [address] [id number] [place] [address] Nov, [facility] [place] [facility] [address] [facility] [id number] [place] [address] Oct, [facility] [place] [facility] [address] [id number] [place] [address] Oct, [facility] [place] [facility] [address] [id number] [place] [address] Oct, [facility] [place] [facility] [address] [id number] [place] [address] Oct, [facility] [place] [facility] [address] [id number] [place] [address] Oct, [facility] [place] [facility] [address] [id number] [place] [address] Oct, [facility] [place] [facility] [address] [id number] [place] [address] Oct, [facility] [place] [facility] [address] [id number] [place] [address] Sep, [facility] [place] [facility] [address] [id number] [place] [address] Sep, [facility] [place] [facility] [address] [id number] [place] [address] Sep, [facility] [place] [facility] [address] [id number] [place] [address] Sep, [facility] [place] [facility] [address] [id number] [place] [address] Aug, [facility] [place] [facility] [address] [id number] [place] [address] Aug, [facility] [place] [facility] [address] [id number] [place] [address] Aug, [facility] [place] [facility] [address] [id number] [place] [address] Aug, [facility] [place] [facility] [address] [id number] [place] [address] Jul, [facility] [place] [facility] [address] [id number] [place] [address] Jul, [facility] [place] [facility] [address] [id number] [place] [address] Apr, [facility] [place] [facility] [address] [id number] [place] [address] Apr, [facility] [place] [facility] [address] [id number] [place] [address] Mar, [facility] [place] [facility] [address] [id number] [place] [address] Mar, [facility] [place] [facility] [address] [id number] [facility] [place] [address] Mar, [facility] [place] [facility] [address] [facility] [id number] [facility] [place] [address] Mar, [facility] [place] [facility] [address] [id number] [facility] [place] [address] Mar, [facility] [place] [facility] [address] [id number] [facility] [place] [address] Mar, [facility] [place] [facility] [address] [facility] [id number] [facility] [place] [address] Mar, [facility] [place] [facility] [address] [id number] [facility] [place] [address] Mar, [facility] [place] [facility] [address] [id number] [place] [address] Mar, [facility] [place] [facility] [address] [id number] [facility] [place] [address] Mar, [facility] [place] [facility] [address] [id number] [place] [address] Feb, [facility] [place] [facility] [address] [id number] [facility] [place] [address] Feb, [facility] [place] [facility] [address] [id number] [place] [address] Feb, [facility] [place] [facility] [address] [id number] [place] [address] Feb, [facility] [place] [facility] [address] [id number] [place] [address] Jan, [facility] [place] [facility] [address] [id number] [place] [address] 25 Nov, 2012 [facility] [place] [facility] [address] [id number] [place] [address] 16 Nov, 2012 [facility] [place] [facility] [address] [id number] [place] [address] 15 Nov, 2012 [facility] [place] [facility] [address] [id number] [place] [address] Nov, [facility] [place] [facility] [address] [id number] [place] [address] Oct, [facility] [place] [facility] [address] [id number] [place] [address] Sep, [facility] [place] [facility] [address] [id number] [place] [address] Sep, [facility] [place] [facility] [address] [id number] [place] [address] Aug, [facility] [place] [facility] [address] [id number] [place] [address] Jul, [facility] [place] [facility] [address] [id number] [place] [address] Jul, [facility] [place] [facility] [address] [id number] [place] [address] May, [facility] [place] [facility] [address] [id number] [place] [address] May, [facility] [place] [facility] [address] [id number] [place] [address] May, [facility] [place] [facility] [address] [id number] [place] [address] May, [facility] [place] [facility] [address] [id number] [place] [address] Apr, [facility] [place] [facility] [address] [id number] [place] [address] Mar, [facility] [place] [facility] [address] [id number] [place] [address] Mar, [facility] [place] [facility] [address] [place] [id number] [place] [address] Mar, [facility] [place] [facility] [address] [id number] [place] [address] Mar, [facility] [place] [facility] [address] [id number] [place] [address] Mar, [facility] [place] [facility] [address] [id number] [place] [address] Mar, [facility] [place] [facility] [address] [id number] [place] [address] Mar, [facility] [place] [facility] [address] [id number] [place] [address] Mar, [facility] [place] [facility] [address] [id number] [place] [address] Feb, [facility] [place] [facility] [address] [id number] [place] [address] Feb, [facility] [place] [facility] [address] [id number] [place] [address] Jan, [facility] [place] [facility] [address] [id number] [place] [address] December, [facility] [place] [facility] [address] [id number] [place] [address] December, [facility] [address] [id number] [place] [address] Nov, [facility] [address] [id number] [place] [address] Nov, [facility] [address] [id number] [place] [address] Nov, [facility] [address] [id number] [place] [address] Nov, [facility] [address] [id number] [place] [address] Oct, [facility] [address] [id number] [place] [address] Sep, [facility] [address] [id number] [place] [address] Sep, [facility] [address] [id number] [place] [address] Sep, [facility] [address] [id number] [place] [address] 17 Sep, 2011 [facility] [address] [id number] [place] [address] 16 Sep, 2011 [facility] [address] [id number] [place] [address] 16 Sep, 2011 [facility] [address] [id number] [place] [address] 15 Sep, 2011 [facility] [address] [id number] [place] [address] 15 Sep, 2011 [facility] [address] [id number] [place] [address] Aug, [facility] [address] [id number] [place] [address] Jul, [facility] [address] [id number] [place] [address] 14 Jul, 2011 [facility] [address] [id number] [place] [address] 14 Jul, 2011 [facility] [address] [id number] [place] [address] Jun, [facility] [address] [id number] [place] [address] Jul, [facility] [address] [id number] [place] [address] Jul, [facility] [address] [id number] [place] [address] Jul, [facility] [address] [id number] [place] [address] Jul, [facility] [address] [id number] [place] [address] Jul, [facility] [address] [id number] [place] [address] May, [facility] [address] [id number] [place] [address] May, [facility] [address] [id number] [place] [address] May, [facility] [address] [id number] [place] [address] Apr, [facility] [address] [id number] [place] [address] Jun, [facility] [address] [id number] [place] [address] Jun, [facility] [address] [id number] [place] [address] May, [facility] [address] [id number] [place] [address] Jan, IMMUNIZATIONS No Known Immunizations SOCIAL HISTORY [...]
--- OUTSIDE RECORDS SUMMARY | 2019-11-01 20:25 | XMS REPORT ---
Author Author Nyasia RUIZ Organization [facility] Address [address] [place] [address] Care Team Providers Care Crossing Watchman Name Role Phone IRVIN RUIZ Unavailable PROBLEMS Type Condition ICD9-CM Code HPY12-CW Code Onset Dates Condition S tatus SNOMED Code Problem Grief reaction F43.21 Active 49752 5009 Problem Hyperlipidemia E78.5 Active 80869 004 Problem Type 2 diabetes mellitus without complications E11 .9 Active 59324820 Problem Essential hypertension I10 Active [id number] ALLERGIES No Information ENCOUNTERS Encounter Location Date Diagnosis [place] [address] [address] Oct, [place] [address] [address] 12 Sep, 2019 Breast pain, left N64.4 and Type 2 diabe yoanna mellitus without complications E11.9 [place] [address] [address] 12 Sep, 2019 [place] [address] [address] Sep, [place] [address] [address] 07 Sep, 2019 Vaginal irritation N89.8 and Screening f or cervical cancer Z12.4 [place] [address] [address] Jul, [place] [address] [address] Jun, Encounter for immunization Z23 [place] [address] [address] Mar, Type 2 diabetes mellitus without complic ations E11.9 [place] [address] [address] December, Insect bite (nonvenomous), left thigh, i nitial encounter S70.362A ; Local infection of the skin and subcutaneous tissue, unspecified L08.9 and Bitten or stung by nonvenomous insect and other nonvenomous arthropods, initial encounter W57.XXXA [place] [address] [address] December, [place] [address] [address] Nov, [place] [address] [address] Nov, [place] [address] [address] Oct, URI (upper respiratory infection) J06.9 ; Type 2 diabetes mellitus without complications E11.9 and Hyperlipidemia E78.5 [place] [address] [address] Aug, [place] [address] [address] Jun, Acute nasopharyngitis J00 [place] [address] [address] May, Encounter for immunization Z23 [place] [address] [address] Apr, [place] [address] [address] Apr, Type 2 diabetes mellitus without complic ations E11.9 [place] [address] [address] Apr, Type 2 diabetes mellitus without complic ations E11.9 ; Grief reaction F43.21 and Essential hypertension I10 [place] [address] [address] Mar, Type 2 diabetes mellitus without complic ations E11.9 [facility] [id number] [place] [address] Mar, Type 2 diabetes mellitus without complic ations E11.9 [facility] [id number] [place] [address] Feb, [facility] [address] [address] Jan, [facility] [address] [address] Nov, Type 2 diabetes mellitus without complic ations E11.9 [facility] [address] [address] Oct, [facility] [address] [address] Oct, Labia irritation N90.89 [facility] [address] [address] Sep, [facility] [address] [id number] [place] [address] Sep, [facility] [address] [address] Sep, [facility] [address] [address] Aug, [facility] [address] [address] Jul, [facility] [id number] [place] [address] Jul, [facility] [address] [address] Mar, Type 2 diabetes mellitus without complic ations E11.9 ; Acute pain of right knee M25.561 and Essential hypertension I10 [facility] [id number] [place] [address] Mar, [place] [address] [address] Mar, Dysuria R30.0 [place] [address] [address] December, [place] [address] [address] Nov, [place] [address] [address] Nov, Dental examination Z01.20 [place] [address] [address] Nov, Dental examination Z01.20 [place] [address] [address] Nov, Non-intractable vomiting with nausea, un specified vomiting type R11.2 ; Arthralgia, unspecified joint M25.50 ; Fever, unspecified fever cause R50.9 ; Type 2 diabetes mellitus without complications E11.9 and Tooth pain K08.89 [place] [address] [address] Nov, Type 2 diabetes mellitus without complic ations E11.9 [place] [address] [address] Nov, Type 2 diabetes mellitus without complic ations E11.9 and Bronchitis J40 [place] [address] [address] Oct, Type 2 diabetes mellitus without complic ations E11.9 [place] [address] [address] Jul, [place] [address] [address] Jul, Dysuria R30.0 ; Hematuria R31.9 and Vagi nal pain R10.2 [place] [address] [address] Jul, Dysuria R30.0 ; Vaginal discharge N89.8 and Low back strain, initial encounter S39.012A [facility] [id number] [place] [address] Jun, Bacterial conjunctivitis of right eye H1 0.9 ; Sore throat J02.9 and Acute non-recurrent maxillary sinusitis J01.00 [facility] [address] [id number] [place] [address] Jun, [facility] [id number] [place] [address] May, [facility] [id number] [place] [address] Apr, [facility] [address] [address] Apr, [facility] [address] [address] Apr, [facility] [address] [address] Apr, Type 2 diabetes mellitus without complic ations E11.9 [facility] [address] [place] [address] [id number] [place] [address] Mar, [facility] [address] [address] Feb, Bronchitis J40 [facility] [address] [address] Feb, Bronchitis J40 [facility] [id number] [place] [address] Feb, Type 2 diabetes mellitus without complic ations E11.9 [facility] [id number] [place] [address] Feb, [facility] [id number] [place] [address] Feb, [facility] [id number] [place] [address] Feb, Type 2 diabetes mellitus without complic ations E11.9 and Dysuria R30.0 [place] [address] [address] [id number] [place] [address] Jan, Type 2 diabetes mellitus without complic ations E11.9 [place] [address] [address] 14 Jan, 2016 Type 2 diabetes mellitus without complic ations E11.9 [place] [address] [address] December, Type 2 diabetes mellitus without complic ations E11.9 [place] [address] [address] Nov, Type 2 diabetes mellitus without complic ations E11.9 [place] [address] [address] Oct, Type 2 diabetes mellitus without complic ations E11.9 ; Fever R50.9 ; Myalgia M79.1 and Cough R05 [place] [address] [address] Sep, Dysuria R30.0 and Cystitis N30.90 [place] [address] [address] 05 Sep, 2015 [place] [address] [address] Sep, [facility] [id number] [place] [id number] Aug, Dental examination Z01.20 [place] [address] [address] Aug, Type 2 diabetes mellitus without complic ations E11.9 [place] [address] [address] Jul, Dysfunction of left eustachian tube H69. 82 [place] [address] [address] Jun, [place] [address] [address] Jun, Cellulitis L03.90 [place] [address] [address] Jun, [place] [address] [address] Jun, [place] [address] [address] Jun, [place] [address] [address] May, Dermatofibroma of ankle, right D23.71 [place] [address] [address] May, [place] [address] [address] Apr, Diabetes 250.00 and 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 [place] [address] [address] Apr, [place] [address] [address] Apr, [place] [address] [address] Apr, Diabetes 250.00 ; Influenza vaccine admi nistered V04.81 and Allergic rhinitis 477.9 [place] [address] [address] Mar, [place] [address] [address] Jan, [place] [address] [address] Jan, DM w/o complication type II 250.00 [place] [address] [address] December, DM w/o complication type II 250.00 ; Stephen caneal spur 726.73 ; Vaginitis due to Amanda 112.1 and Onychomycosis 110.1 [facility] [id number] [place] [address] 30 Nov, 2014 Amanda infection of genital region 112. 2 [facility] [id number] [place] [address] 14 Nov, 2014 [facility] [id number] [place] [address] 13 Nov, 2014 [facility] [id number] [place] [address] 10 Oct, 2014 [facility] [address] [address] Oct, [facility] [address] [address] 24 Sep, 2014 [facility] [id number] [place] [address] Sep, [facility] [id number] [place] [address] Jul, [facility] [id number] [place] [address] Jul, [facility] [address] [address] Jun, [facility] [id number] [place] [address] Jun, [facility] [id number] [place] [address] Jun, [facility] [id number] [place] [address] Jun, [facility] [id number] [place] [address] May, [facility] [id number] [place] [address] May, [facility] [id number] [place] [address] May, [facility] [place] [facility] [address] [id number] [facility] [address] May, [facility] [place] [facility] [address] [id number] [place] [address] Apr, [facility] [place] [facility] [address] [facility] [id number] [facility] [place] [address] Apr, [facility] [place] [facility] [address] [id number] [place] [address] Apr, [facility] [place] [facility] [address] [facility] [place] [id number] [place] [address] Apr, [facility] [place] [facility] [address] [id number] [facility] [place] [address] Mar, [facility] [place] [facility] [address] [facility] [place] [id number] [facility] [place] [address] Mar, [facility] [place] [facility] [address] [id number] [facility] [place] [address] Mar, [facility] [place] [facility] [address] [facility] [place] [id number] [facility] [place] [address] Mar, [facility] [place] [facility] [address] [id number] [facility] [place] [address] Mar, [facility] [place] [facility] [address] [facility] [place] [id number] [place] [address] Mar, [facility] [place] [facility] [address] [id number] [place] [address] Mar, [facility] [place] [facility] [address] [facility] [id number] [facility] [place] [address] Mar, [facility] [place] [facility] [address] [id number] [place] [address] Mar, [facility] [place] [facility] [address] [facility] [place] [id number] [place] [address] Mar, [facility] [place] [facility] [address] [id number] [place] [address] Mar, [facility] [place] [facility] [address] [facility] [place] [id number] [place] [address] Mar, [facility] [place] [facility] [address] [id number] [facility] [place] [address] Feb, [facility] [place] [facility] [address] [facility] [place] [id number] [place] [address] Feb, [facility] [place] [facility] [address] [id number] [place] [address] Jan, [facility] [place] [facility] [address] [id number] [place] [address] Jan, [facility] [place] [facility] [address] [id number] [place] [address] Jan, [facility] [place] [facility] [address] [id number] [place] [address] Jan, [facility] [place] [facility] [address] [id number] [place] [address] December, [facility] [place] [facility] [address] [id number] [place] [address] December, [facility] [place] [facility] [address] [id number] [place] [address] December, [facility] [place] [facility] [address] [id number] [place] [address] December, [facility] [place] [facility] [address] [id number] [place] [address] Nov, [facility] [place] [facility] [address] [id number] [place] [address] Nov, [facility] [place] [facility] [address] [id number] [place] [address] Nov, [facility] [place] [facility] [address] [id number] [place] [address] Nov, [facility] [place] [facility] [address] [id number] [place] [address] Nov, [facility] [place] [facility] [address] [id number] [place] [address] Nov, [facility] [place] [facility] [address] [id number] [place] [address] Nov, [facility] [place] [facility] [address] [id number] [place] [address] Oct, [facility] [place] [facility] [address] [id number] [place] [address] Oct, [facility] [place] [facility] [address] [id number] [place] [address] Oct, [facility] [place] [facility] [address] [id number] [place] [address] Oct, [facility] [place] [facility] [address] [id number] [place] [address] Oct, [facility] [place] [facility] [address] [id number] [place] [address] Oct, [facility] [place] [facility] [address] [id number] [place] [address] Oct, [facility] [place] [facility] [address] [id number] [place] [address] Sep, [facility] [place] [facility] [address] [id number] [place] [address] Sep, [facility] [place] [facility] [address] [id number] [place] [address] Sep, [facility] [place] [facility] [address] [id number] [place] [address] Sep, [facility] [place] [facility] [address] [id number] [place] [address] Aug, [facility] [place] [facility] [address] [id number] [place] [address] Aug, [facility] [place] [facility] [address] [id number] [place] [address] Aug, [facility] [place] [facility] [address] [id number] [place] [address] Aug, [facility] [place] [facility] [address] [id number] [place] [address] Jul, [facility] [place] [facility] [address] [facility] [place] [id number] [place] [address] Jul, [facility] [place] [facility] [address] [facility] [place] [id number] [facility] [place] [address] Apr, [facility] [place] [facility] [address] [id number] [place] [address] Apr, [facility] [place] [facility] [address] [id number] [place] [address] Mar, [facility] [place] [facility] [address] [facility] [place] [id number] [facility] [place] [address] Mar, [facility] [place] [facility] [address] [id number] [place] [address] Mar, [facility] [place] [facility] [address] [id number] [place] [address] Mar, [facility] [place] [facility] [address] [id number] [place] [address] Mar, [facility] [place] [facility] [address] [id number] [place] [address] Mar, [facility] [place] [facility] [address] [id number] [place] [address] Mar, [facility] [place] [facility] [address] [id number] [place] [address] Mar, [facility] [place] [facility] [address] [id number] [place] [address] Mar, [facility] [place] [facility] [address] [id number] [place] [address] Mar, [facility] [place] [facility] [address] [id number] [place] [address] Feb, [facility] [place] [facility] [address] [id number] [place] [address] Feb, [facility] [place] [facility] [address] [id number] [place] [address] Feb, [facility] [place] [facility] [address] [id number] [place] [address] 08 Feb, 2013 [facility] [place] [facility] [address] [id number] [place] [address] Jan, [facility] [place] [facility] [address] [id number] [place] [address] 25 Nov, 2012 [facility] [place] [facility] [address] [id number] [place] [address] 16 Nov, 2012 [facility] [place] [facility] [address] [id number] [place] [address] 15 Nov, 2012 [facility] [place] [facility] [address] [id number] [place] [address] Nov, [facility] [place] [facility] [address] [id number] [place] [address] Oct, [facility] [place] [facility] [id number] [place] [address] Sep, [facility] [place] [facility] [id number] [place] [address] Sep, [facility] [place] [facility] [address] [id number] [place] [address] Aug, [facility] [place] [facility] [address] [id number] [place] [address] Jul, [facility] [place] [facility] [id number] [place] [address] Jul, [facility] [place] [facility] [address] [id number] [place] [address] May, [facility] [place] [facility] [address] [id number] [place] [address] May, [facility] [place] [facility] [id number] [place] [address] May, [facility] [place] [facility] [address] [id number] [place] [address] May, [facility] [place] [facility] [id number] [place] [address] Apr, [facility] [place] [facility] [address] [id number] [place] [address] Mar, [facility] [place] [facility] [address] [id number] [place] [address] Mar, [facility] [place] [facility] [address] [id number] [place] [address] Mar, [facility] [place] [facility] [address] [id number] [place] [address] Mar, [facility] [place] [facility] [address] [id number] [place] [address] Mar, [facility] [place] [facility] [address] [id number] [place] [address] Mar, [facility] [place] [facility] [address] [id number] [place] [address] Mar, [facility] [place] [facility] [address] [id number] [place] [address] Mar, [facility] [place] [facility] [address] [id number] [place] [address] Feb, [facility] [place] [facility] [address] [id number] [place] [address] Feb, [facility] [place] [facility] [address] [id number] [place] [address] Jan, [facility] [place] [facility] [address] [id number] [place] [address] December, [facility] [place] [facility] [address] [id number] [place] [address] December, [facility] [place] [facility] [address] [id number] [place] [address] Nov, [facility] [place] [facility] [address] [id number] [place] [address] Nov, [facility] [place] [facility] [address] [id number] [place] [address] 18 Nov, 2011 [facility] [place] [facility] [address] [id number] [place] [address] Nov, [facility] [place] [facility] [address] [id number] [place] [address] Oct, [facility] [place] [facility] [address] [id number] [place] [address] 29 Sep, 2011 [facility] [place] [facility] [address] [id number] [place] [address] Sep, [facility] [place] [facility] [address] [id number] [place] [address] Sep, [facility] [place] [facility] [address] [id number] [place] [address] Sep, [facility] [address] [id number] [place] [address] 16 Sep, 2011 [facility] [address] [id number] [place] [address] 16 Sep, 2011 [facility] [id number] [place] [address] 15 Sep, 2011 [facility] [address] [id number] [place] [address] Sep, [facility] [address] [id number] [place] [address] Aug, [facility] [address] [id number] [place] [address] Jul, [facility] [address] [id number] [place] [address] Jul, [facility] [address] [id number] [place] [address] Jul, [facility] [id number] [place] [address] Jun, [facility] [address] [id number] [place] [address] Jul, [facility] [address] [id number] [place] [address] Jul, [facility] [address] [id number] [place] [address] Jul, [facility] [address] [id number] [place] [address] Jul, [facility] [address] [id number] [place] [address] Jul, [facility] [address] [id number] [place] [address] May, [facility] [address] [id number] [place] [address] May, [facility] [address] [id number] [place] [address] May, [facility] [address] [id number] [place] [address] Apr, [facility] [address] [id number] [place] [address] Jun, [facility] [address] [id number] [place] [address] Jun, [facility] [address] [id number] [place] [address] May, [facility] [address] [id number] [place] [address] Jan, IMMUNIZATIONS No Known Immunizations SOCIAL HISTORY Never Assessed REASON FOR VISIT PLAN OF CARE VITAL SIGNS MEDICATIONS Unknown Medications RESULTS No Results PROCEDURES Procedure Date Ordered Result Body Site GLYCATED HEMOGLOBIN TEST November 10, 2013 LIPID PANEL November 10, 2013 COMPREHEN METABOLIC PANEL November 10, 2013 VENIPUNCT, ROUTINE* November 10, 2013 INSTRUCTIONS MEDICATIONS ADMINISTERED No Known Medications [...]
--- OUTSIDE RECORDS SUMMARY | 2019-11-01 20:25 | XMS REPORT ---
Author Author Nyasia RUIZ Organization [facility] Address [address] [place] [address] Care Team Providers Care Insurance Claims Examiner Name Role Phone IRVIN RUIZ Unavailable PROBLEMS Type Condition ICD9-CM Code MVM64-MB Code Onset Dates Condition S tatus SNOMED Code Problem Grief reaction F43.21 Active 05731 5009 Problem Hyperlipidemia E78.5 Active 30480 004 Problem Type 2 diabetes mellitus without complications E11 .9 Active 14942123 Problem Essential hypertension I10 Active [id number] ALLERGIES No Information ENCOUNTERS Encounter Location Date Diagnosis [place] [address] [address] 07 Sep, 2019 Vaginal irritation N89.8 and Screening f or cervical cancer Z12.4 [place] [address] [address] Jul, [place] [address] [address] Jun, Encounter for immunization Z23 [place] [address] [address] Mar, Type 2 diabetes mellitus without complic ations E11.9 [place] [address] [address] December, Insect bite (nonvenomous), left thigh, i nitial encounter S70.362A ; Local infection of the skin and subcutaneous tissue, unspecified L08.9 and Bitten or stung by nonvenomous insect and other nonvenomous arthropods, initial encounter W57.XXXA [place] [address] [address] December, [place] [address] [address] Nov, [facility] [address] [address] Nov, [facility] [address] [address] Oct, URI (upper respiratory infection) J06.9 ; Type 2 diabetes mellitus without complications E11.9 and Hyperlipidemia E78.5 [place] [address] [address] Aug, [place] [address] [address] Jun, Acute nasopharyngitis J00 [place] [address] [address] May, Encounter for immunization Z23 [place] [address] [address] Apr, [place] [address] [address] Apr, Type 2 diabetes mellitus without complic ations E11.9 [place] [address] [address] Apr, Type 2 diabetes mellitus without complic ations E11.9 ; Grief reaction F43.21 and Essential hypertension I10 [place] [address] [address] Mar, Type 2 diabetes mellitus without complic ations E11.9 [place] [address] [address] Mar, Type 2 diabetes mellitus without complic ations E11.9 [place] [address] [address] Feb, [facility] [address] [address] Jan, [place] [address] [address] Nov, Type 2 diabetes mellitus without complic ations E11.9 [facility] [address] [address] Oct, [facility] [address] [address] Oct, Labia irritation N90.89 [facility] [address] [address] Sep, [facility] [address] [address] Sep, [facility] [address] [address] Sep, [facility] [address] [address] Aug, [facility] [address] [address] Jul, [facility] [address] [address] Jul, [facility] [address] [address] Mar, Type 2 diabetes mellitus without complic ations E11.9 ; Acute pain of right knee M25.561 and Essential hypertension I10 [facility] [address] [address] Mar, [facility] [address] [address] Mar, Dysuria R30.0 [facility] [address] [address] December, [facility] [address] [address] Nov, [facility] [address] [address] Nov, Dental examination Z01.20 [facility] [address] [address] Nov, Dental examination Z01.20 [place] [address] [address] Nov, Non-intractable vomiting with nausea, un specified vomiting type R11.2 ; Arthralgia, unspecified joint M25.50 ; Fever, unspecified fever cause R50.9 ; Type 2 diabetes mellitus without complications E11.9 and Tooth pain K08.89 [place] [address] [address] Nov, Type 2 diabetes mellitus without complic ations E11.9 [place] [address] [address] Nov, Type 2 diabetes mellitus without complic ations E11.9 and Bronchitis J40 [place] [address] [address] Oct, Type 2 diabetes mellitus without complic ations E11.9 [place] [address] [address] Jul, [place] [address] [address] Jul, Dysuria R30.0 ; Hematuria R31.9 and Vagi nal pain R10.2 [place] [address] [address] Jul, Dysuria R30.0 ; Vaginal discharge N89.8 and Low back strain, initial encounter S39.012A [place] [address] [address] Jun, Bacterial conjunctivitis of right eye H1 0.9 ; Sore throat J02.9 and Acute non-recurrent maxillary sinusitis J01.00 [place] [address] [address] Jun, [place] [address] [address] May, [place] [address] [id number] [place] [address] 27 Apr, 2016 [facility] [address] [id number] [place] [address] 14 Apr, 2016 [facility] [address] [id number] [place] [address] 12 Apr, 2016 [facility] [address] [id number] [place] [address] Apr, Type 2 diabetes mellitus without complic ations E11.9 [facility] [address] [id number] [place] [address] Mar, [facility] [address] [id number] [place] [address] Feb, Bronchitis J40 [facility] [address] [id number] [place] [address] Feb, Bronchitis J40 [facility] [address] [id number] [place] [address] Feb, Type 2 diabetes mellitus without complic ations E11.9 [facility] [address] [id number] [place] [address] Feb, [facility] [address] [id number] [place] [address] Feb, [facility] [address] [id number] [place] [address] Feb, Type 2 diabetes mellitus without complic ations E11.9 and Dysuria R30.0 [facility] [address] [id number] [place] [address] Jan, Type 2 diabetes mellitus without complic ations E11.9 [facility] [address] [id number] [place] [address] Jan, Type 2 diabetes mellitus without complic ations E11.9 [facility] [address] [id number] [place] [address] December, Type 2 diabetes mellitus without complic ations E11.9 [place] [address] [address] Nov, Type 2 diabetes mellitus without complic ations E11.9 [place] [address] [address] Oct, Type 2 diabetes mellitus without complic ations E11.9 ; Fever R50.9 ; Myalgia M79.1 and Cough R05 [place] [address] [address] Sep, Dysuria R30.0 and Cystitis N30.90 [place] [address] [address] Sep, [place] [address] [address] Sep, [facility] [address] [place] [id number] [place] [id number] Aug, Dental examination Z01.20 [place] [address] [address] Aug, Type 2 diabetes mellitus without complic ations E11.9 [place] [address] [address] Jul, Dysfunction of left eustachian tube H69. 82 [place] [address] [address] Jun, [place] [address] [address] Jun, Cellulitis L03.90 [facility] [address] [address] Jun, [place] [address] [address] Jun, [facility] [address] [address] Jun, [facility] [address] [address] May, Dermatofibroma of ankle, right D23.71 [place] [address] [address] May, [place] [address] [address] Apr, Diabetes 250.00 and 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 [place] [address] [address] Apr, [place] [address] [address] Apr, [place] [address] [address] Apr, Diabetes 250.00 ; Influenza vaccine admi nistered V04.81 and Allergic rhinitis 477.[address] [address] Mar, [place] [address] [address] Jan, [place] [address] [address] Jan, DM w/o complication type II 250.[address] [address] December, DM w/o complication type II 250.00 ; Stephen caneal spur 726.73 ; Vaginitis due to Amanda 112.1 and Onychomycosis 110.1 [place] [address] [address] 30 Nov, 2014 Amanda infection of genital region 112. 2 [place] [address] [address] 14 Nov, [address] [address] 13 Nov, [address] [address] Oct, [facility] [place] [facility] [address] [id number] [place] [address] Oct, [facility] [place] [facility] [address] [id number] [place] [address] Sep, [facility] [place] [facility] [address] [id number] [place] [address] Sep, [facility] [place] [facility] [address] [id number] [place] [address] Jul, [facility] [place] [facility] [address] [id number] [place] [address] Jul, [facility] [place] [facility] [address] [id number] [place] [address] Jun, [facility] [place] [facility] [address] [id number] [place] [address] Jun, [facility] [place] [facility] [address] [id number] [place] [address] Jun, [facility] [place] [facility] [address] [id number] [place] [address] Jun, [facility] [place] [facility] [address] [id number] [place] [address] May, [facility] [place] [facility] [address] [id number] [place] [address] May, [facility] [place] [facility] [address] [id number] [place] [address] May, [facility] [place] [facility] [address] [id number] [place] [address] May, [facility] [place] [facility] [address] [id number] [place] [address] Apr, [facility] [place] [facility] [address] [id number] [place] [address] Apr, [facility] [place] [facility] [address] [id number] [place] [address] Apr, [facility] [place] [facility] [address] [id number] [place] [address] Apr, [facility] [place] [facility] [address] [id number] [facility] [place] [address] Mar, [facility] [place] [facility] [address] [facility] [id number] [place] [address] Mar, [facility] [place] [facility] [address] [id number] [facility] [place] [address] Mar, [facility] [place] [facility] [address] [facility] [id number] [place] [address] Mar, [facility] [place] [facility] [address] [facility] [id number] [place] [address] Mar, [facility] [place] [facility] [address] [facility] [id number] [place] [address] Mar, [facility] [place] [facility] [address] [id number] [facility] [place] [address] Mar, [facility] [place] [facility] [address] [id number] [facility] [place] [address] Mar, [facility] [place] [facility] [address] [facility] [id number] [facility] [place] [address] Mar, [facility] [place] [facility] [address] [id number] [facility] [place] [address] Mar, [facility] [place] [facility] [address] [id number] [place] [address] Mar, [facility] [place] [facility] [address] [id number] [place] [address] Mar, [facility] [place] [facility] [address] [facility] [id number] [facility] [place] [address] Feb, [facility] [place] [facility] [address] [id number] [place] [address] Feb, [facility] [place] [facility] [address] [facility] [id number] [facility] [place] [address] Jan, [facility] [place] [facility] [address] [id number] [facility] [place] [address] Jan, [facility] [place] [facility] [address] [facility] [id number] [place] [address] Jan, [facility] [place] [facility] [address] [facility] [id number] [place] [address] Jan, [facility] [place] [facility] [address] [facility] [id number] [place] [address] December, [facility] [place] [facility] [address] [id number] [place] [address] December, [facility] [place] [facility] [address] [facility] [id number] [place] [address] December, [facility] [place] [facility] [address] [id number] [place] [address] December, [facility] [place] [facility] [address] [id number] [place] [address] Nov, [facility] [place] [facility] [address] [id number] [place] [address] Nov, [facility] [place] [facility] [address] [id number] [place] [address] Nov, [facility] [place] [facility] [address] [id number] [place] [address] Nov, [facility] [place] [facility] [address] [id number] [place] [address] Nov, [facility] [place] [facility] [address] [id number] [place] [address] Nov, [facility] [place] [facility] [address] [id number] [place] [address] Nov, [facility] [place] [facility] [address] [facility] [id number] [place] [address] Oct, [facility] [place] [facility] [address] [id number] [place] [address] Oct, [facility] [place] [facility] [address] [id number] [place] [address] Oct, [facility] [place] [facility] [address] [id number] [place] [address] Oct, [facility] [place] [facility] [address] [id number] [place] [address] Oct, [facility] [place] [facility] [address] [id number] [place] [address] Oct, [facility] [place] [facility] [address] [id number] [place] [address] Oct, [facility] [place] [facility] [address] [id number] [place] [address] Sep, [facility] [place] [facility] [address] [id number] [place] [address] Sep, [facility] [place] [facility] [address] [id number] [place] [address] Sep, [facility] [place] [facility] [address] [id number] [place] [address] Sep, [facility] [place] [facility] [address] [id number] [place] [address] Aug, [facility] [place] [facility] [address] [id number] [place] [address] Aug, [facility] [place] [facility] [address] [id number] [place] [address] Aug, [facility] [place] [facility] [address] [id number] [place] [address] Aug, [facility] [place] [facility] [address] [id number] [place] [address] Jul, [facility] [place] [facility] [address] [id number] [place] [address] Jul, [facility] [place] [facility] [address] [id number] [place] [address] Apr, [facility] [place] [facility] [address] [id number] [place] [address] Apr, [facility] [place] [facility] [address] [id number] [place] [address] Mar, [facility] [place] [facility] [address] [id number] [place] [address] 29 Mar, 2013 [facility] [place] [facility] [address] [id number] [place] [address] Mar, [facility] [place] [facility] [address] [id number] [place] [address] Mar, [facility] [place] [facility] [address] [id number] [place] [address] Mar, [facility] [place] [facility] [address] [id number] [place] [address] Mar, [facility] [place] [facility] [address] [id number] [place] [address] Mar, [facility] [place] [facility] [address] [id number] [place] [address] Mar, [facility] [place] [facility] [address] [id number] [place] [address] Mar, [facility] [place] [facility] [address] [id number] [place] [address] Mar, [facility] [place] [facility] [address] [id number] [place] [address] Feb, [facility] [place] [facility] [address] [id number] [place] [address] Feb, [facility] [place] [facility] [address] [id number] [place] [address] Feb, [facility] [place] [facility] [address] [id number] [place] [address] Feb, [facility] [place] [facility] [address] [id number] [place] [address] Jan, [facility] [place] [facility] [address] [id number] [place] [address] 25 Nov, 2012 [facility] [place] [facility] [address] [id number] [place] [address] 16 Nov, 2012 [facility] [place] [facility] [address] [id number] [place] [address] 15 Nov, 2012 [facility] [place] [facility] [address] [id number] [place] [address] Nov, [facility] [place] [facility] [address] [id number] [place] [address] Oct, [facility] [place] [facility] [address] [id number] [place] [address] Sep, [facility] [place] [facility] [address] [id number] [place] [address] Sep, [facility] [place] [facility] [address] [id number] [place] [address] Aug, [facility] [place] [facility] [address] [id number] [place] [address] Jul, [facility] [place] [facility] [address] [id number] [place] [address] Jul, [facility] [place] [facility] [id number] [place] [address] May, [facility] [place] [facility] [address] [id number] [place] [address] May, [facility] [place] [facility] [address] [id number] [place] [address] May, [facility] [place] [facility] [address] [id number] [place] [address] May, [facility] [place] [facility] [address] [id number] [place] [address] Apr, [facility] [place] [facility] [address] [id number] [place] [address] Mar, [facility] [place] [facility] [address] [id number] [place] [address] Mar, [facility] [place] [facility] [address] [id number] [place] [address] Mar, [facility] [place] [facility] [address] [id number] [place] [address] Mar, [facility] [place] [facility] [address] [id number] [place] [address] Mar, [facility] [place] [facility] [address] [id number] [facility] [place] [address] Mar, [facility] [place] [facility] [address] [id number] [facility] [place] [address] Mar, [facility] [place] [facility] [address] [id number] [facility] [place] [address] Mar, [facility] [place] [facility] [address] [id number] [place] [address] Feb, [facility] [place] [facility] [address] [facility] [id number] [facility] [place] [address] Feb, [facility] [place] [facility] [address] [id number] [place] [address] Jan, [facility] [place] [facility] [address] [id number] [place] [address] December, [facility] [place] [facility] [address] [id number] [place] [address] December, [facility] [address] [id number] [place] [address] Nov, [facility] [address] [id number] [place] [address] Nov, [facility] [address] [id number] [place] [address] Nov, [facility] [address] [id number] [place] [address] Nov, [facility] [address] [id number] [place] [address] Oct, [facility] [address] [id number] [place] [address] Sep, [facility] [address] [id number] [place] [address] Sep, [facility] [address] [id number] [place] [address] Sep, [facility] [address] [id number] [place] [address] 17 Sep, 2011 [facility] [address] [id number] [place] [address] 16 Sep, 2011 [facility] [address] [id number] [place] [address] 16 Sep, 2011 [facility] [address] [id number] [place] [address] 15 Sep, 2011 [facility] [address] [id number] [place] [address] 15 Sep, 2011 [facility] [address] [id number] [place] [address] Aug, [facility] [address] [id number] [place] [address] 29 Jul, 2011 [facility] [id number] [place] [address] 14 Jul, 2011 [facility] [address] [id number] [place] [address] 14 Jul, 2011 [facility] [address] [id number] [place] [address] Jun, [facility] [address] [id number] [place] [address] Jul, [facility] [address] [id number] [place] [address] Jul, [facility] [address] [id number] [place] [address] 16 Jul, 2010 [facility] [address] [id number] [place] [address] 02 Jul, 2010 [facility] [address] [id number] [place] [address] Jul, [facility] [address] [id number] [place] [address] 28 May, 2010 [facility] [address] [id number] [place] [address] May, [facility] [address] [id number] [place] [address] May, [facility] [address] [id number] [place] [address] Apr, [facility] [address] [id number] [place] [address] Jun, [facility] [address] [id number] [place] [address] Jun, [facility] [address] [id number] [place] [address] May, [facility] [address] [id number] [place] [address] Jan, IMMUNIZATIONS No Known Immunizations SOCIAL HISTORY Never Assessed REASON FOR VISIT PLAN OF CARE VITAL SIGNS Height 63 in 2013-11-08 Weight 193.4 lbs 2013-11-08 Temperature 98.5 degrees Fahrenheit 2013-11-08 Heart Rate 84 bpm 2013-11-08 Respiratory Rate 16 2013-11-08 Blood pressure systolic 114 mmHg 2013-11-08 Blood pressure diastolic 78 mmHg 2013-11-08 MEDICATIONS No Known Medications RESULTS No Results PROCEDURES No Known [...]
--- OUTSIDE RECORDS SUMMARY | 2019-11-01 20:26 | XMS REPORT ---
Author Author Nyasia RUIZ Organization [facility] Address [address] [place] [address] Care Team Providers Care Liquor Blender Name Role Phone IRVIN RUIZ Unavailable PROBLEMS Type Condition ICD9-CM Code TLE29-TV Code Onset Dates Condition S tatus SNOMED Code Problem Costochondritis 733.6 Active 6410 9004 Problem Grief reaction F43.21 Active 61097 5009 Problem Hyperlipidemia E78.5 Active 26856 004 Problem Unspecified cardiac dysrhythmia 427.9 Active 500871394 Problem Diabetes 250.00 Active 96027180 Problem Type 2 diabetes mellitus without complications E11 .9 Active 36172241 Problem Essential hypertension I10 Active 41022502 ALLERGIES No Information ENCOUNTERS Encounter Location Date Diagnosis [place] [address] [place] [id number] [address] [address] Mar, Type 2 diabetes mellitus wit hout complications E11.9 [place] [id number] [address] December, Insect bite (nonvenomous), l eft thigh, initial encounter S70.362A ; Local infection of the skin and subcutaneous tissue, unspecified L08.9 and Bitten or stung by nonvenomous insect and other nonvenomous arthropods, initial encounter W57.XXXA [place] [address] [place] [id number] [address] [address] December, [place] [address] [address] Nov, [place] [address] [place] [id number] [address] [place] [address] Nov, [place] [address] [place] [id number] [address] [place] [address] Oct, URI (upper respiratory infec tion) J06.9 ; Type 2 diabetes mellitus without complications E11.9 and Hyperlipidemia E78.5 [facility] [address] [facility] [id number] [address] [address] Aug, [facility] [address] [facility] [id number] [address] [address] Jun, Acute nasopharyngitis J00 [facility] [address] [facility] [id number] [address] [address] May, Encounter for immunization Z 23 [facility] [address] [facility] [id number] [address] [address] 20 Apr, 2018 [place] [address] [place] [id number] [address] [address] Apr, Type 2 diabetes mellitus wit hout complications E11.9 [place] [address] [place] [id number] [address] [address] Apr, Type 2 diabetes mellitus wit hout complications E11.9 ; Grief reaction F43.21 and Essential hypertension I10 [facility] [address] [facility] [id number] [address] [id number] Mar, Type 2 diabetes mellitus wit hout complications E11.9 [place] [address] [facility] [id number] [address] [address] Mar, Type 2 diabetes mellitus wit hout complications E11.9 [facility] [address] [facility] [id number] [address] [id number] Feb, [facility] [address] [facility] [id number] [address] [place] [address] Jan, [facility] [address] [place] [id number] [address] [address] Nov, Type 2 diabetes mellitus wit hout complications E11.9 [facility] [address] [place] [id number] [address] [address] Oct, [facility] [address] [id number] [address] [address] Oct, Labia irritation N90.89 [facility] [address] [id number] [address] [place] [address] Sep, [facility] [address] [id number] [address] [place] [address] Sep, [facility] [address] [id number] [address] [place] [address] Sep, [facility] [address] [id number] [address] [place] [address] Aug, [facility] [address] [id number] [address] [place] [address] Jul, [facility] [address] [id number] [address] [place] [address] Jul, [facility] [address] [id number] [address] [place] [address] Mar, Type 2 diabetes mellitus wit hout complications E11.9 ; Acute pain of right knee M25.561 and Essential hypertension I10 [facility] [address] [facility] [id number] [address] [place] [address] Mar, [facility] [address] [facility] [id number] [address] [place] [address] Mar, Dysuria R30.0 [facility] [address] [id number] [address] [place] [address] December, [facility] [address] [id number] [address] [address] Nov, [facility] [address] [facility] [id number] [address] [place] [address] Nov, Dental examination Z01.20 [facility] [address] [facility] [id number] [address] [place] [address] Nov, Dental examination Z01.20 [place] [address] [facility] [id number] [address] [place] [address] Nov, Non-intractable vomiting wit h nausea, unspecified vomiting type R11.2 ; Arthralgia, unspecified joint M25.50 ; Fever, unspecified fever cause R50.9 ; Type 2 diabetes mellitus without complications E11.9 and Tooth pain K08.89 [place] [address] [facility] [id number] [address] [place] [address] Nov, Type 2 diabetes mellitus wit hout complications E11.9 [place] [address] [facility] [id number] [address] [address] Nov, Type 2 diabetes mellitus wit hout complications E11.9 and Bronchitis J40 [place] [address] [facility] [id number] [address] [place] [address] Oct, Type 2 diabetes mellitus wit hout complications E11.9 [place] [id number] [place] [address] Jul, [place] [address] [place] [id number] [address] [place] [address] Jul, Dysuria R30.0 ; Hematuria R3 1.9 and Vaginal pain R10.2 [place] [address] [place] [id number] [address] [place] [address] Jul, Dysuria R30.0 ; Vaginal disc harge N89.8 and Low back strain, initial encounter S39.012A [place] [address] [facility] [id number] [address] [place] [address] Jun, Bacterial conjunctivitis of right eye H10.9 ; Sore throat J02.9 and Acute non-recurrent maxillary sinusitis J01.00 [place] [address] [facility] [id number] [address] [address] Jun, [place] [address] [facility] [id number] [address] [address] May, [facility] [address] [id number] [address] [place] [address] 27 Apr, 2016 [facility] [address] [id number] [address] [place] [address] 14 Apr, 2016 [facility] [address] [id number] [address] [place] [address] Apr, [facility] [address] [id number] [address] [place] [address] Apr, Type 2 diabetes mellitus wit hout complications E11.9 [facility] [address] [id number] [address] [place] [address] Mar, [facility] [address] [id number] [address] [address] Feb, Bronchitis J40 [facility] [address] [id number] [address] [address] Feb, Bronchitis J40 [facility] [address] [id number] [address] [place] [address] Feb, Type 2 diabetes mellitus wit hout complications E11.9 [facility] [address] [id number] [address] [place] [address] Feb, [facility] [address] [id number] [address] [place] [address] Feb, [facility] [address] [id number] [address] [place] [address] Feb, Type 2 diabetes mellitus wit hout complications E11.9 and Dysuria R30.0 [facility] [address] [id number] [address] [place] [address] Jan, Type 2 diabetes mellitus wit hout complications E11.9 [facility] [address] [id number] [address] [place] [address] 14 Jan, 2016 Type 2 diabetes mellitus wit hout complications E11.9 [facility] [address] [id number] [address] [place] [address] December, Type 2 diabetes mellitus wit hout complications E11.9 [facility] [id number] [place] [address] Nov, Type 2 diabetes mellitus wit hout complications E11.9 [facility] [address] [place] [id number] [address] [place] [address] Oct, Type 2 diabetes mellitus wit hout complications E11.9 ; Fever R50.9 ; Myalgia M79.1 and Cough R05 [facility] [address] [place] [id number] [place] [address] 15 Sep, 2015 Dysuria R30.0 and Cystitis N 30.90 [facility] [address] [place] [id number] [address] [place] [address] Sep, [facility] [address] [address] Sep, [facility] [address] [place] [id number] [address] [place] [id number] Aug, Dental examination Z01.20 [facility] [address] [place] [id number] [address] Aug, Type 2 diabetes mellitus wit hout complications E11.9 [facility] [address] [place] [address] Jul, Dysfunction of left eustachi an tube H69.82 [facility] [address] [place] [address] Jun, [facility] [address] [place] [id number] [address] [address] Jun, Cellulitis L03.90 [facility] [address] [place] [id number] [address] [place] [address] Jun, [facility] [address] [address] Jun, [place] [address] [facility] [id number] [address] [place] [address] Jun, [facility] [address] [facility] [id number] [address] [place] [address] May, Dermatofibroma of ankle, rig ht D23.71 [place] [address] [place] [id number] [address] [address] May, [place] [address] [facility] [id number] [address] [place] [address] Apr, Diabetes 250.00 and 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 [place] [address] [place] [id number] [address] [place] [address] Apr, [place] [address] [place] [id number] [address] [place] [address] Apr, [place] [address] [place] [id number] [address] [place] [address] Apr, Diabetes 250.00 ; Influenza vaccine administered V04.81 and Allergic rhinitis 477.9 [place] [address] [facility] [id number] [address] [place] [id number] Mar, [place] [address] [place] [id number] [address] [id number] Jan, [place] [address] [place] [id number] [address] [place] [address] Jan, DM w/o complication type II 250.00 [place] [address] [facility] [id number] [address] [place] [address] December, DM w/o complication type II 250.00 ; Calcaneal spur 726.73 ; Vaginitis due to Amanda 112.1 and Onychomycosis 110.1 [place] [address] [facility] [id number] [address] [place] [address] Nov, Amanda infection of genital region 112.2 [place] [address] [facility] [id number] [address] [place] [address] 14 Nov, 2014 [facility] [address] [id number] [address] [place] [address], [place] [address] 13 Nov, 2014 [facility] [address] [id number] [address] [place] [address], [place] [address] 10 Oct, 2014 [facility] [address] [id number] [address] [place] [address], [place] [address] Oct, [facility] [address] [id number] [address] [place] [address], [place] [address] 24 Sep, 2014 [facility] [address] [id number] [address] [place] [address], [place] [address] Sep, [facility] [address] [id number] [address] [place] [address], [place] [address] Jul, [facility] [address] [id number] [address] [place] [address], [place] [address] Jul, [facility] [address] [id number] [address] [place] [address], [place] [address] Jun, [facility] [address] [id number] [address] [place] [address], [place] [address] Jun, [facility] [address] [id number] [address] [place] [address], [place] [address] Jun, [facility] [address] [id number] [address] [place] [address], [place] [address] Jun, [facility] [address] [id number] [address] [place] [address], [place] [address] May, [facility] [address] [id number] [address] [place] [address], [place] [address] May, [facility] [address] [id number] [address] [place] [address], [place] [address] May, [facility] [address] [id number] [address] [place] [address], [place] [address] May, [facility] [address] [id number] [facility] [place] [address] Apr, 2013 [facility] [address] [id number] [facility] [place] [address] Apr, [facility] [address] [id number] [facility] [place] [address] Apr, [facility] [address] [id number] [address] [place] [address], [place] [address] Apr, [facility] [address] [id number] [address] [place] [address], [place] [address] Mar, [facility] [facility] [address] [id number] [address] [place] [address], [place] [address] Mar, [facility] [facility] [address] [id number] [address] [place] [address], [place] [address] Mar, [facility] [place] [facility] [address] [id number] [address] [place] [address], [place] [address] Mar, [facility] [place] [facility] [address] [id number] [address] [place] [address], [place] [address] Mar, [facility] [facility] [address] [id number] [address] [place] [address], [place] [address] Mar, [facility] [address] [id number] [address] [place] [address], [place] [address] Mar, [facility] [address] [id number] [address] [place] [address], [place] [address] Mar, [facility] [address] [id number] [address] [place] [address], [place] [address] Mar, [facility] [facility] [address] [id number] [address] [place] [address], [place] [address] Mar, [facility] [address] [id number] [address] [place] [address], [place] [address] Mar, [facility] [address] [id number] [address] [place] [address], [place] [address] Mar, [facility] [address] [id number] [facility] [place] [address] Feb, [facility] [address] [id number] [address] [place] [address], [place] [address] Feb, [facility] [address] [id number] [address] [place] [address], [place] [address] Jan, [facility] [address] [id number] [address] [place] [address], [place] [address] Jan, [facility] [address] [id number] [address] [place] [address], [place] [address] Jan, [facility] [address] [id number] [address] [place] [address], [place] [address] Jan, [facility] [address] [id number] [address] [place] [address], [place] [address] December, [facility] [address] [id number] [address] [place] [address], [place] [address] December, [facility] [address] [id number] [address] [place] [address], [place] [address] December, [facility] [address] [id number] [address] [place] [address], [place] [address] December, [facility] [address] [id number] [address] [place] [address], [place] [address] Nov, [facility] [address] [id number] [address] [place] [address], [place] [address] Nov, [facility] [address] [id number] [address] [place] [address], [place] [address] Nov, [facility] [place] [facility] [address] [id number] [address] [place] [address], [place] [address] Nov, [facility] [place] [facility] [address] [id number] [address] [place] [address], [place] [address] Nov, [facility] [place] [facility] [address] [id number] [address] [place] [address] Nov, [facility] [address] [id number] [address] [place] [address], [place] [address] Nov, [facility] [address] [id number] [address] [place] [address], [place] [address] Oct, [facility] [address] [id number] [address] [place] [address], [place] [address] Oct, [facility] [address] [id number] [address] [place] [address], [place] [address] Oct, [facility] [address] [id number] [address] [place] [address], [place] [address] Oct, [facility] [address] [id number] [address] [place] [address], [place] [address] Oct, [facility] [address] [id number] [address] [place] [address], [place] [address] Oct, [facility] [address] [id number] [address] [place] [address], [place] [address] Oct, [facility] [address] [id number] [address] [place] [address], [place] [address] 07 Sep, 2013 [facility] [address] [id number] [address] [place] [address], [place] [address] 07 Sep, 2013 [facility] [address] [id number] [address] [place] [address], [place] [address] Sep, [facility] [address] [id number] [address] [place] [address], [place] [address] Sep, [facility] [address] [id number] [address] [place] [address], [place] [address] Aug, [facility] [address] [id number] [address] [place] [address], [place] [address] Aug, [facility] [address] [id number] [address] [place] [address], [place] [address] Aug, [facility] [address] [id number] [address] [place] [address], [place] [address] Aug, [facility] [address] [id number] [address] [place] [address], [place] [address] Jul, [facility] [address] [id number] [address] [place] [address], [place] [address] Jul, [facility] [address] [id number] [address] [place] [address], [place] [address] Apr, [facility] [address] [id number] [address] [place] [address], [place] [address] Apr, [facility] [address] [id number] [address] [place] [address], [place] [address] Mar, [facility] [address] [id number] [address] [place] [address], [place] [address] Mar, [facility] [address] [id number] [address] [place] [address], [place] [id number] Mar, [facility] [address] [id number] [address] [place] [address], [place] [address] Mar, [facility] [address] [id number] [address] [place] [address], [place] [id number] Mar, [facility] [address] [id number] [address] [place] [address], [place] [id number] Mar, [facility] [address] [id number] [address] [place] [address], [place] [id number] Mar, [facility] [address] [id number] [address] [place] [address], [place] [id number] Mar, [facility] [address] [id number] [address] [place] [address], [place] [id number] Mar, [facility] [address] [id number] [address] [place] [address], [place] [id number] Mar, [facility] [address] [id number] [address] [place] [address], [place] [id number] 31 Feb, 2013 [facility] [address] [id number] [address] [place] [address], [place] [id number] 26 Feb, 2013 [facility] [address] [id number] [address] [place] [address], [place] [id number] 18 Feb, 2013 [facility] [address] [id number] [address] [place] [address], [place] [id number] 08 Feb, 2013 [facility] [address] [id number] [address] [place] [address], [place] [id number] Jan, [facility] [address] [id number] [address] [place] [address], [place] [id number] 25 Nov, 2012 [facility] [address] [id number] [address] [place] [address], [place] [id number] 16 Nov, 2012 [facility] [address] [id number] [address] [place] [address], [place] [id number] 15 Nov, 2012 [facility] [address] [id number] [address] [place] [address], [place] [address] Nov, [facility] [address] [id number] [address] [place] [address], [place] [id number] Oct, [facility] [address] [id number] [address] [place] [address], [place] [id number] Sep, [facility] [address] [id number] [address] [place] [address], [place] [id number] Sep, [facility] [address] [id number] [address] [place] [address], [place] [id number] Aug, [facility] [address] [id number] [address] [place] [address], [place] [id number] Jul, [facility] [address] [id number] [address] [place] [address], [place] [id number] Jul, [facility] [address] [id number] [address] [place] [address], [place] [id number] May, [facility] [address] [id number] [address] [place] [address], [place] [id number] May, [facility] [address] [id number] [address] [place] [address], [place] [id number] May, [facility] [address] [id number] [address] [place] [address], [place] [address] May, [facility] [address] [id number] [address] [place] [address], [place] [id number] Apr, [facility] [address] [id number] [address] [place] [address], [place] [id number] Mar, [facility] [address] [id number] [address] [place] [address], [place] [id number] Mar, [facility] [address] [id number] [address] [place] [address], [place] [id number] Mar, [facility] [address] [id number] [address] [place] [address], [place] [id number] Mar, [facility] [address] [id number] [address] [place] [address], [place] [id number] Mar, [facility] [address] [id number] [address] [place] [address], [place] [id number] Mar, [facility] [address] [id number] [address] [place] [address], [place] [id number] Mar, [facility] [address] [id number] [address] [place] [address], [place] [id number] Mar, [facility] [address] [id number] [address] [place] [address], [place] [id number] Feb, [facility] [address] [id number] [address] [place] [address], [place] [id number] Feb, [facility] [address] [id number] [address] [place] [address], [place] [id number] Jan, [facility] [address] [id number] [address] [address] December, [facility] [address] [id number] [address] [place] [address], [place] [id number] December, [facility] [address] [id number] [address] [place] [address], [place] [id number] 23 Nov, 2011 [facility] [address] [id number] [address] [place] [address], [place] [id number] 19 Nov, 2011 [facility] [address] [id number] [address] [place] [address], [place] [id number] 18 Nov, 2011 [facility] [address] [id number] [address] [place] [address], [place] [id number] Nov, [facility] [address] [id number] [address] [place] [address], [place] [id number] 08 Oct, 2011 [facility] [address] [id number] [address] [place] [address], [place] [id number] 29 Sep, 2011 [facility] [address] [id number] [address] [place] [address], [place] [id number] 21 Sep, 2011 [facility] [address] [id number] [address] [place] [address], [place] [id number] 17 Sep, 2011 [facility] [address] [id number] [address] [place] [address], [place] [id number] 17 Sep, 2011 [facility] [address] [id number] [address] [place] [address], [place] [id number] 16 Sep, 2011 [facility] [address] [id number] [address] [place] [id number] 16 Sep, 2011 [facility] [address] [id number] [address] [place] [address], [place] [id number] 15 Sep, 2011 [facility] [address] [id number] [address] [place] [address], [place] [id number] 15 Sep, 2011 [facility] [address] [id number] [address] [place] [id number] 05 Aug, 2011 [facility] [address] [id number] [address] [place] [address], [place] [id number] 29 Jul, 2011 [facility] [address] [id number] [address] [place] [address], [place] [id number] 14 Jul, 2011 [facility] [address] [id number] [address] [place] [address], [place] [id number] 14 Jul, 2011 [facility] [address] [id number] [address] [place] [address], [place] [id number] 08 Jun, 2011 [facility] [address] [id number] [address] [place] [address], [place] [id number] Jul, [facility] [address] [id number] [address] [place] [address], [place] [id number] Jul, [facility] [address] [id number] [address] [place] [address], [place] [id number] 16 Jul, 2010 [facility] [address] [id number] [address] [place] [address], [place] [id number] Jul, [facility] [address] [id number] [address] [place] [address], [place] [id number] Jul, [facility] [address] [id number] [address] [place] [address], [place] [id number] May, [facility] [address] [id number] [address] [place] [address], [place] [id number] May, [facility] [address] [id number] [address] [place] [address], [place] [id number] May, [facility] [address] [id number] [address] [place] [address], [place] [id number] 15 Apr, 2010 [facility] [address] [id number] [address] [place] [address], [place] [id number] 13 Jun, 2009 [facility] [address] [id number] [address] [place] [address], [place] [id number] 13 Jun, 2009 [facility] [address] [id number] [address] [place] [address], [place] [id number] May, [facility] [address] [facility] [id number] [address] [place] [address] Jan, IMMUNIZATIONS No Known Immunizations SOCIAL HISTORY Never Assessed REASON FOR VISIT PLAN OF CARE VITAL SIGNS Height 63 in 2014-07-21 Weight 195.25 lbs 2014-07-21 Temperature 97.9 degrees Fahrenheit 2014-07-21 Heart Rate 70 bpm 2014-07-21 Respiratory Rate 18 2014-07-21 Blood pressure systolic 118 mmHg 2014-07-21 Blood pressure diastolic 72 mmHg 2014-07-21 MEDICATIONS Unknown Medications RESULTS No Results PROCEDURES Procedure Date Ordered Result Body Site GLYCATED HEMOGLOBIN TEST Jul 21, 2014 MICROALBUMIN, SEMIQUANT Jul 21, 2014 INSTRUCTIONS MEDICATIONS ADMINISTERED No Known Medications MEDICAL [...]
--- OUTSIDE RECORDS SUMMARY | 2019-11-01 20:26 | XMS REPORT ---
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 Name Role Phone IRVIN RUIZ Unavailable PROBLEMS Type Condition ICD9-CM Code [id number] Code Onset Dates Condition S tatus SNOMED Code Problem Costochondritis 733.6 Active 6410 9004 Problem Grief reaction F43.21 Active 76854 5009 Problem Hyperlipidemia E78.5 Active 93097 004 Problem Unspecified cardiac dysrhythmia 427.9 Active 106522773 Problem Diabetes 250.00 Active 61678097 Problem Type 2 diabetes mellitus without complications E11 .9 Active 11836944 Problem Essential hypertension I10 Active [id number] ALLERGIES No Information ENCOUNTERS Encounter Location Date Diagnosis [place] [address] [address] Jul, [place] [address] [address] Jun, Encounter for immunization Z23 [place] [address] [address] Mar, Type 2 diabetes mellitus without complic ations E11.9 [place] [address] [address] December, Insect bite (nonvenomous), left thigh, i nitial encounter S70.362A ; Local infection of the skin and subcutaneous tissue, unspecified L08.9 and Bitten or stung by nonvenomous insect and other nonvenomous arthropods, initial encounter W57.XXXA [place] [address] [address] December, [place] [address] [address] Nov, [facility] [address] [address] Nov, [facility] [address] [address] Oct, URI (upper respiratory infection) J06.9 ; Type 2 diabetes mellitus without complications E11.9 and Hyperlipidemia E78.5 [place] [address] [address] Aug, [facility] [address] [address] Jun, Acute nasopharyngitis J00 [place] [address] [address] May, Encounter for immunization Z23 [place] [address] [address] Apr, [place] [address] [address] Apr, Type 2 diabetes mellitus without complic ations E11.9 [place] [address] [address] Apr, Type 2 diabetes mellitus without complic ations E11.9 ; Grief reaction F43.21 and Essential hypertension I10 [place] [address] [address] Mar, Type 2 diabetes mellitus without complic ations E11.9 [place] [address] [address] Mar, Type 2 diabetes mellitus without complic ations E11.9 [place] [address] [address] Feb, [facility] [address] [address] Jan, [place] [address] [address] Nov, Type 2 diabetes mellitus without complic ations E11.9 [facility] [address] [address] Oct, [facility] [address] [address] Oct, Labia irritation N90.89 [facility] [address] [address] Sep, [facility] [address] [address] Sep, [facility] [address] [address] Sep, [facility] [address] [address] Aug, [facility] [address] [address] Jul, [facility] [address] [address] Jul, [facility] [address] [address] Mar, Type 2 diabetes mellitus without complic ations E11.9 ; Acute pain of right knee M25.561 and Essential hypertension I10 [facility] [address] [address] Mar, [facility] [address] [address] Mar, Dysuria R30.0 [facility] [address] [address] December, [facility] [address] [address] Nov, [facility] [address] [address] Nov, Dental examination Z01.20 [facility] [address] [address] Nov, Dental examination Z01.20 [place] [address] [address] Nov, Non-intractable vomiting with nausea, un specified vomiting type R11.2 ; Arthralgia, unspecified joint M25.50 ; Fever, unspecified fever cause R50.9 ; Type 2 diabetes mellitus without complications E11.9 and Tooth pain K08.89 [place] [address] [address] Nov, Type 2 diabetes mellitus without complic ations E11.9 [place] [address] [address] Nov, Type 2 diabetes mellitus without complic ations E11.9 and Bronchitis J40 [place] [address] [address] Oct, Type 2 diabetes mellitus without complic ations E11.9 [place] [address] [address] Jul, [place] [address] [address] Jul, Dysuria R30.0 ; Hematuria R31.9 and Vagi nal pain R10.2 [place] [address] [address] Jul, Dysuria R30.0 ; Vaginal discharge N89.8 and Low back strain, initial encounter S39.012A [place] [address] [address] Jun, Bacterial conjunctivitis of right eye H1 0.9 ; Sore throat J02.9 and Acute non-recurrent maxillary sinusitis J01.00 [place] [address] [address] Jun, [place] [address] [address] May, [place] [address] [place] [id number] 27 Apr, 2016 [facility] [address] [id number] [place] [address] 14 Apr, 2016 [facility] [address] [id number] [place] [address] Apr, [facility] [address] [id number] [place] [address] Apr, Type 2 diabetes mellitus without complic ations E11.9 [facility] [address] [id number] [place] [address] Mar, [facility] [address] [id number] [place] [address] Feb, Bronchitis J40 [facility] [address] [place] [id number] [place] [address] Feb, Bronchitis J40 [facility] [address] [place] [id number] [place] [address] Feb, Type 2 diabetes mellitus without complic ations E11.9 [facility] [address] [id number] [place] [address] Feb, [facility] [address] [id number] [place] [address] Feb, [facility] [address] [id number] [place] [address] Feb, Type 2 diabetes mellitus without complic ations E11.9 and Dysuria R30.0 [facility] [address] [place] [id number] [place] [address] Jan, Type 2 diabetes mellitus without complic ations E11.9 [facility] [address] [place] [id number] [place] [address] Jan, Type 2 diabetes mellitus without complic ations E11.9 [facility] [address] [id number] [place] [address] December, Type 2 diabetes mellitus without complic ations E11.9 [facility] [address] [address] Nov, Type 2 diabetes mellitus without complic ations E11.9 [facility] [address] [address] Oct, Type 2 diabetes mellitus without complic ations E11.9 ; Fever R50.9 ; Myalgia M79.1 and Cough R05 [place] [address] [address] Sep, Dysuria R30.0 and Cystitis N30.90 [place] [address] [address] Sep, [place] [address] [address] Sep, [facility] [address] [id number] Aug, Dental examination Z01.20 [place] [address] [address] Aug, Type 2 diabetes mellitus without complic ations E11.9 [place] [address] [address] Jul, Dysfunction of left eustachian tube H69. 82 [place] [address] [address] Jun, [facility] [address] [address] Jun, Cellulitis L03.90 [facility] [address] [address] Jun, [place] [address] [address] Jun, [facility] [address] [address] Jun, [facility] [address] [address] May, Dermatofibroma of ankle, right D23.71 [place] [address] [address] May, [place] [address] [address] Apr, Diabetes 250.00 and 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 [place] [address] [address] Apr, [place] [address] [address] Apr, [address] [address] Apr, Diabetes 250.00 ; Influenza vaccine admi nistered V04.81 and Allergic rhinitis 477.[address] [address] Mar, [place] [address] [address] Jan, [place] [address] [address] Jan, DM w/o complication type II 250.[address] [address] December, DM w/o complication type II 250.00 ; Stephen caneal spur 726.73 ; Vaginitis due to Amanda 112.1 and Onychomycosis 110.1 [place] [address] [address] 30 Nov, 2014 Amanda infection of genital region 112. [address] [address] Nov, [address] [address] Nov, [address] [address] Oct, [address] [id number] [place] [address] Oct, [facility] [place] [facility] [address] [id number] [place] [address] Sep, [facility] [place] [facility] [address] [id number] [place] [address] Sep, [facility] [place] [facility] [address] [id number] [place] [address] Jul, [facility] [place] [facility] [address] [id number] [place] [address] Jul, [facility] [place] [facility] [address] [id number] [place] [address] Jun, [facility] [place] [facility] [address] [id number] [place] [address] Jun, [facility] [place] [facility] [address] [id number] [place] [address] Jun, [facility] [place] [facility] [address] [id number] [place] [address] Jun, [facility] [place] [facility] [address] [id number] [place] [address] May, [facility] [place] [facility] [address] [id number] [place] [address] May, [facility] [place] [facility] [address] [id number] [place] [address] May, [facility] [place] [facility] [address] [id number] [place] [address] May, [facility] [place] [facility] [address] [id number] [place] [address] Apr, [facility] [place] [facility] [address] [id number] [place] [address] Apr, [facility] [place] [facility] [address] [id number] [place] [address] 08 Apr, 2014 [facility] [place] [facility] [address] [id number] [place] [address] Apr, [facility] [place] [facility] [address] [id number] [place] [address] Mar, [facility] [place] [facility] [address] [id number] [place] [address] Mar, [facility] [place] [facility] [address] [facility] [id number] [place] [address] Mar, [facility] [place] [facility] [address] [id number] [place] [address] Mar, [facility] [place] [facility] [address] [facility] [id number] [place] [address] Mar, [facility] [place] [facility] [address] [id number] [place] [address] Mar, [facility] [place] [facility] [address] [id number] [place] [address] Mar, [facility] [place] [facility] [address] [id number] [place] [address] Mar, [facility] [place] [facility] [address] [id number] [place] [address] Mar, [facility] [place] [facility] [address] [id number] [place] [address] Mar, [facility] [place] [facility] [address] [id number] [place] [address] Mar, [facility] [place] [facility] [address] [id number] [place] [address] Mar, [facility] [place] [facility] [address] [facility] [id number] [place] [address] Feb, [facility] [place] [facility] [address] [id number] [place] [address] Feb, [facility] [place] [facility] [address] [id number] [place] [address] Jan, [facility] [place] [facility] [address] [id number] [place] [address] Jan, [facility] [place] [facility] [address] [id number] [place] [address] Jan, [facility] [place] [facility] [address] [facility] [id number] [place] [address] Jan, [facility] [place] [facility] [address] [facility] [id number] [place] [address] December, [facility] [place] [facility] [address] [id number] [place] [address] December, [facility] [place] [facility] [address] [id number] [place] [address] December, [facility] [place] [facility] [address] [facility] [id number] [place] [address] December, [facility] [place] [facility] [address] [id number] [place] [address] Nov, [facility] [place] [facility] [address] [id number] [place] [address] Nov, [facility] [place] [facility] [address] [id number] [place] [address] Nov, [facility] [place] [facility] [address] [id number] [place] [address] Nov, [facility] [place] [facility] [address] [id number] [place] [address] Nov, [facility] [place] [facility] [address] [id number] [place] [address] Nov, [facility] [place] [facility] [address] [id number] [place] [address] Nov, [facility] [place] [facility] [address] [facility] [id number] [place] [address] Oct, [facility] [place] [facility] [address] [id number] [place] [address] Oct, [facility] [place] [facility] [address] [id number] [place] [address] Oct, [facility] [place] [facility] [address] [id number] [place] [address] Oct, [facility] [place] [facility] [address] [id number] [place] [address] Oct, [facility] [place] [facility] [address] [id number] [place] [address] Oct, [facility] [place] [facility] [address] [id number] [place] [address] Oct, [facility] [place] [facility] [address] [id number] [place] [address] Sep, [facility] [place] [facility] [address] [id number] [place] [address] Sep, [facility] [place] [facility] [address] [id number] [place] [address] Sep, [facility] [place] [facility] [address] [id number] [place] [address] Sep, [facility] [place] [facility] [address] [id number] [place] [address] Aug, [facility] [place] [facility] [address] [id number] [place] [address] Aug, [facility] [place] [facility] [address] [id number] [place] [address] Aug, [facility] [place] [facility] [address] [id number] [place] [address] Aug, [facility] [place] [facility] [address] [id number] [place] [address] Jul, [facility] [place] [facility] [address] [id number] [place] [address] Jul, [facility] [place] [facility] [address] [id number] [place] [address] Apr, [facility] [place] [facility] [address] [id number] [place] [address] Apr, [facility] [place] [facility] [address] [id number] [place] [address] Mar, [facility] [place] [facility] [address] [id number] [place] [address] Mar, [facility] [place] [facility] [address] [id number] [place] [address] Mar, [facility] [place] [facility] [address] [facility] [id number] [place] [address] Mar, [facility] [place] [facility] [address] [id number] [place] [address] Mar, [facility] [place] [facility] [address] [id number] [place] [address] Mar, [facility] [place] [facility] [address] [facility] [id number] [place] [address] Mar, [facility] [place] [facility] [address] [id number] [place] [address] Mar, [facility] [place] [facility] [address] [id number] [place] [address] Mar, [facility] [place] [facility] [address] [id number] [place] [address] Mar, [facility] [place] [facility] [address] [id number] [place] [address] Feb, [facility] [place] [facility] [address] [id number] [place] [address] Feb, [facility] [place] [facility] [address] [id number] [place] [address] Feb, [facility] [place] [facility] [address] [id number] [place] [address] Feb, [facility] [place] [facility] [address] [id number] [place] [address] Jan, [facility] [place] [facility] [address] [id number] [place] [address] 25 Nov, 2012 [facility] [place] [facility] [address] [id number] [place] [address] 16 Nov, 2012 [facility] [place] [facility] [address] [id number] [place] [address] 15 Nov, 2012 [facility] [place] [facility] [address] [id number] [place] [address] Nov, [facility] [place] [facility] [address] [id number] [place] [address] Oct, [facility] [place] [facility] [address] [id number] [place] [address] Sep, [facility] [place] [facility] [address] [id number] [place] [address] Sep, [facility] [place] [facility] [address] [id number] [place] [address] Aug, [facility] [place] [facility] [address] [id number] [place] [address] Jul, [facility] [place] [facility] [address] [id number] [place] [address] Jul, [facility] [place] [facility] [address] [id number] [place] [address] May, [facility] [place] [facility] [address] [id number] [place] [address] May, [facility] [place] [facility] [address] [id number] [place] [address] May, [facility] [place] [facility] [address] [id number] [place] [address] May, [facility] [place] [facility] [address] [id number] [place] [address] Apr, [facility] [place] [facility] [address] [id number] [place] [address] Mar, [facility] [place] [facility] [address] [id number] [place] [address] Mar, [facility] [place] [facility] [address] [place] [id number] [place] [address] Mar, [facility] [place] [facility] [address] [id number] [place] [address] Mar, [facility] [place] [facility] [address] [id number] [place] [address] Mar, [facility] [place] [facility] [address] [id number] [place] [address] Mar, [facility] [place] [facility] [address] [id number] [place] [address] Mar, [facility] [place] [facility] [address] [id number] [place] [address] Mar, [facility] [place] [facility] [address] [id number] [place] [address] Feb, [facility] [place] [facility] [address] [id number] [place] [address] Feb, [facility] [place] [facility] [address] [id number] [place] [address] Jan, [facility] [place] [facility] [address] [id number] [place] [address] December, [facility] [place] [facility] [address] [id number] [place] [address] December, [facility] [place] [facility] [address] [id number] [place] [address] Nov, [facility] [place] [facility] [address] [id number] [place] [address] Nov, [facility] [place] [facility] [address] [id number] [place] [address] Nov, [facility] [place] [facility] [address] [id number] [place] [address] Nov, [facility] [place] [facility] [address] [id number] [place] [address] Oct, [facility] [place] [facility] [address] [id number] [place] [address] Sep, [facility] [place] [facility] [address] [id number] [place] [address] Sep, [facility] [place] [facility] [address] [id number] [place] [address] Sep, [facility] [place] [facility] [address] [id number] [place] [address] 17 Sep, 2011 [facility] [place] [facility] [address] [id number] [place] [address] 16 Sep, 2011 [facility] [place] [facility] [address] [id number] [place] [address] 16 Sep, 2011 [facility] [place] [facility] [address] [id number] [place] [address] 15 Sep, 2011 [facility] [place] [facility] [address] [id number] [place] [address] 15 Sep, 2011 [facility] [place] [facility] [address] [id number] [place] [address] Aug, [facility] [place] [facility] [address] [id number] [place] [address] Jul, [facility] [place] [facility] [address] [id number] [place] [address] 14 Jul, 2011 [facility] [address] [id number] [place] [address] 14 Jul, 2011 [facility] [address] [id number] [place] [address] Jun, [facility] [address] [id number] [place] [address] Jul, [facility] [address] [id number] [place] [address] Jul, [facility] [address] [id number] [place] [address] Jul, [facility] [address] [id number] [place] [address] Jul, [facility] [address] [id number] [place] [address] Jul, [facility] [address] [id number] [place] [address] May, [facility] [address] [id number] [place] [address] May, [facility] [address] [id number] [place] [address] May, [facility] [address] [id number] [place] [address] Apr, [facility] [address] [id number] [place] [address] Jun, [facility] [address] [id number] [place] [address] Jun, [facility] [address] [id number] [place] [address] May, [facility] [address] [id number] [place] [address] Jan, IMMUNIZATIONS No Known Immunizations SOCIAL HISTORY [...]
--- OUTSIDE RECORDS SUMMARY | 2019-11-01 20:26 | XMS REPORT ---
Author Author Nyasia RUIZ Organization [facility] Address [address] [place] [address] Care Team Providers Care Immunopathologist Name Role Phone IRVIN RUIZ Unavailable PROBLEMS Type Condition ICD9-CM Code KHA30-SU Code Onset Dates Condition S tatus SNOMED Code Problem Costochondritis 733.6 Active 6410 9004 Problem Grief reaction F43.21 Active 01027 5009 Problem Hyperlipidemia E78.5 Active 96833 004 Problem Unspecified cardiac dysrhythmia 427.9 Active 678204515 Problem Diabetes 250.00 Active 14434632 Problem Type 2 diabetes mellitus without complications E11 .9 Active 06583563 Problem Essential hypertension I10 Active [id number] ALLERGIES No Information ENCOUNTERS Encounter Location Date Diagnosis [place] [address] [address] Jul, [place] [address] [address] Jun, Encounter for immunization Z23 [place] [address] [address] Mar, Type 2 diabetes mellitus without complic ations E11.9 [place] [address] [address] December, Insect bite (nonvenomous), left thigh, i nitial encounter S70.362A ; Local infection of the skin and subcutaneous tissue, unspecified L08.9 and Bitten or stung by nonvenomous insect and other nonvenomous arthropods, initial encounter W57.XXXA [place] [address] [address] December, [place] [address] [address] Nov, [facility] [address] [address] Nov, [facility] [address] [address] Oct, URI (upper respiratory infection) J06.9 ; Type 2 diabetes mellitus without complications E11.9 and Hyperlipidemia E78.5 [place] [address] [address] Aug, [facility] [address] [address] Jun, Acute nasopharyngitis J00 [place] [address] [address] May, Encounter for immunization Z23 [place] [address] [address] Apr, [place] [address] [address] Apr, Type 2 diabetes mellitus without complic ations E11.9 [place] [address] [address] Apr, Type 2 diabetes mellitus without complic ations E11.9 ; Grief reaction F43.21 and Essential hypertension I10 [place] [address] [address] Mar, Type 2 diabetes mellitus without complic ations E11.9 [place] [address] [address] Mar, Type 2 diabetes mellitus without complic ations E11.9 [place] [address] [address] Feb, [facility] [address] [address] Jan, [place] [address] [address] Nov, Type 2 diabetes mellitus without complic ations E11.9 [facility] [address] [address] Oct, [facility] [address] [address] Oct, Labia irritation N90.89 [facility] [address] [address] Sep, [facility] [address] [address] Sep, [facility] [address] [address] Sep, [facility] [address] [address] Aug, [facility] [address] [address] Jul, [facility] [address] [address] Jul, [facility] [address] [address] Mar, Type 2 diabetes mellitus without complic ations E11.9 ; Acute pain of right knee M25.561 and Essential hypertension I10 [facility] [address] [address] Mar, [facility] [address] [address] Mar, Dysuria R30.0 [facility] [address] [address] December, [facility] [address] [address] Nov, [facility] [address] [address] Nov, Dental examination Z01.20 [facility] [address] [address] Nov, Dental examination Z01.20 [place] [address] [address] Nov, Non-intractable vomiting with nausea, un specified vomiting type R11.2 ; Arthralgia, unspecified joint M25.50 ; Fever, unspecified fever cause R50.9 ; Type 2 diabetes mellitus without complications E11.9 and Tooth pain K08.89 [place] [address] [address] Nov, Type 2 diabetes mellitus without complic ations E11.9 [place] [address] [address] Nov, Type 2 diabetes mellitus without complic ations E11.9 and Bronchitis J40 [place] [address] [address] Oct, Type 2 diabetes mellitus without complic ations E11.9 [place] [address] [address] Jul, [place] [address] [address] Jul, Dysuria R30.0 ; Hematuria R31.9 and Vagi nal pain R10.2 [place] [address] [address] Jul, Dysuria R30.0 ; Vaginal discharge N89.8 and Low back strain, initial encounter S39.012A [place] [address] [address] Jun, Bacterial conjunctivitis of right eye H1 0.9 ; Sore throat J02.9 and Acute non-recurrent maxillary sinusitis J01.00 [place] [address] [address] Jun, [place] [address] [address] May, [place] [address] [id number] 27 Apr, 2016 [facility] [address] [id number] [place] [address] 14 Apr, 2016 [facility] [address] [id number] [place] [address] Apr, [facility] [address] [id number] [place] [address] Apr, Type 2 diabetes mellitus without complic ations E11.9 [facility] [address] [id number] [place] [address] Mar, [facility] [address] [id number] [place] [address] Feb, Bronchitis J40 [facility] [address] [place] [id number] [place] [address] Feb, Bronchitis J40 [facility] [address] [place] [id number] [place] [address] Feb, Type 2 diabetes mellitus without complic ations E11.9 [facility] [address] [id number] [place] [address] Feb, [facility] [address] [id number] [place] [address] Feb, [facility] [address] [id number] [place] [address] Feb, Type 2 diabetes mellitus without complic ations E11.9 and Dysuria R30.0 [facility] [address] [place] [id number] [place] [address] Jan, Type 2 diabetes mellitus without complic ations E11.9 [facility] [address] [place] [id number] [place] [address] Jan, Type 2 diabetes mellitus without complic ations E11.9 [facility] [address] [id number] [place] [address] December, Type 2 diabetes mellitus without complic ations E11.9 [facility] [address] [address] Nov, Type 2 diabetes mellitus without complic ations E11.9 [facility] [address] [address] Oct, Type 2 diabetes mellitus without complic ations E11.9 ; Fever R50.9 ; Myalgia M79.1 and Cough R05 [place] [address] [address] Sep, Dysuria R30.0 and Cystitis N30.90 [place] [address] [address] Sep, [place] [address] [address] Sep, [facility] [address] [id number] Aug, Dental examination Z01.20 [place] [address] [address] Aug, Type 2 diabetes mellitus without complic ations E11.9 [place] [address] [address] Jul, Dysfunction of left eustachian tube H69. 82 [place] [address] [address] Jun, [facility] [address] [address] Jun, Cellulitis L03.90 [facility] [address] [address] Jun, [place] [address] [address] Jun, [facility] [address] [address] Jun, [facility] [address] [address] May, Dermatofibroma of ankle, right D23.71 [place] [address] [address] May, [place] [address] [address] Apr, Diabetes 250.00 and 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 [place] [address] [address] Apr, [place] [address] [address] Apr, [address] [address] Apr, Diabetes 250.00 ; Influenza vaccine admi nistered V04.81 and Allergic rhinitis 477.[address] [address] Mar, [place] [address] [address] Jan, [place] [address] [address] Jan, DM w/o complication type II 250.[address] [address] December, DM w/o complication type II 250.00 ; Stephen caneal spur 726.73 ; Vaginitis due to Amanda 112.1 and Onychomycosis 110.1 [place] [address] [address] 30 Nov, 2014 Amanda infection of genital region 112. [address] [address] Nov, [address] [address] Nov, [address] [address] Oct, [address] [id number] [place] [address] Oct, [facility] [place] [facility] [address] [id number] [place] [address] Sep, [facility] [place] [facility] [address] [id number] [place] [address] Sep, [facility] [place] [facility] [address] [id number] [place] [address] Jul, [facility] [place] [facility] [address] [id number] [place] [address] Jul, [facility] [place] [facility] [address] [id number] [place] [address] Jun, [facility] [place] [facility] [address] [id number] [place] [address] Jun, [facility] [place] [facility] [address] [id number] [place] [address] Jun, [facility] [place] [facility] [address] [id number] [place] [address] Jun, [facility] [place] [facility] [address] [id number] [place] [address] May, [facility] [place] [facility] [address] [id number] [place] [address] May, [facility] [place] [facility] [address] [id number] [place] [address] May, [facility] [place] [facility] [address] [id number] [place] [address] May, [facility] [place] [facility] [address] [id number] [place] [address] Apr, [facility] [place] [facility] [address] [id number] [place] [address] Apr, [facility] [place] [facility] [address] [id number] [place] [address] 08 Apr, 2014 [facility] [place] [facility] [address] [id number] [place] [address] Apr, [facility] [place] [facility] [address] [id number] [facility] [place] [address] Mar, [facility] [place] [facility] [address] [id number] [place] [address] Mar, [facility] [place] [facility] [address] [facility] [id number] [place] [address] Mar, [facility] [place] [facility] [address] [id number] [facility] [place] [address] Mar, [facility] [place] [facility] [address] [facility] [id number] [facility] [place] [address] Mar, [facility] [place] [facility] [address] [id number] [place] [address] Mar, [facility] [place] [facility] [address] [id number] [place] [address] Mar, [facility] [place] [facility] [address] [id number] [place] [address] Mar, [facility] [place] [facility] [address] [id number] [place] [address] Mar, [facility] [place] [facility] [address] [id number] [place] [address] Mar, [facility] [place] [facility] [address] [id number] [place] [address] Mar, [facility] [place] [facility] [address] [id number] [place] [address] Mar, [facility] [place] [facility] [address] [facility] [id number] [place] [address] Feb, [facility] [place] [facility] [address] [id number] [place] [address] Feb, [facility] [place] [facility] [address] [id number] [place] [address] Jan, [facility] [place] [facility] [address] [id number] [place] [address] Jan, [facility] [place] [facility] [address] [id number] [facility] [facility] [place] [address] Jan, [facility] [place] [facility] [address] [facility] [id number] [facility] [place] [address] Jan, [facility] [place] [facility] [address] [facility] [id number] [place] [address] December, [facility] [place] [facility] [address] [id number] [place] [address] December, [facility] [place] [facility] [address] [id number] [place] [address] December, [facility] [place] [facility] [address] [facility] [id number] [facility] [facility] [place] [address] December, [facility] [place] [facility] [address] [id number] [place] [address] Nov, [facility] [place] [facility] [address] [id number] [place] [address] Nov, [facility] [place] [facility] [address] [id number] [place] [address] Nov, [facility] [place] [facility] [address] [id number] [place] [address] Nov, [facility] [place] [facility] [address] [id number] [place] [address] Nov, [facility] [place] [facility] [address] [id number] [place] [address] Nov, [facility] [place] [facility] [address] [id number] [place] [address] Nov, [facility] [place] [facility] [address] [facility] [id number] [place] [address] Oct, [facility] [place] [facility] [address] [id number] [place] [address] Oct, [facility] [place] [facility] [address] [id number] [place] [address] Oct, [facility] [place] [facility] [address] [id number] [place] [address] Oct, [facility] [place] [facility] [address] [id number] [place] [address] Oct, [facility] [place] [facility] [address] [id number] [place] [address] Oct, [facility] [place] [facility] [address] [id number] [place] [address] Oct, [facility] [place] [facility] [address] [id number] [place] [address] Sep, [facility] [place] [facility] [address] [id number] [place] [address] Sep, [facility] [place] [facility] [address] [id number] [place] [address] Sep, [facility] [place] [facility] [address] [id number] [place] [address] Sep, [facility] [place] [facility] [address] [id number] [place] [address] Aug, [facility] [place] [facility] [address] [id number] [place] [address] Aug, [facility] [place] [facility] [address] [id number] [place] [address] Aug, [facility] [place] [facility] [address] [id number] [place] [address] Aug, [facility] [place] [facility] [address] [id number] [place] [address] Jul, [facility] [place] [facility] [address] [id number] [place] [address] Jul, [facility] [place] [facility] [address] [id number] [place] [address] Apr, [facility] [place] [facility] [address] [id number] [place] [address] Apr, [facility] [place] [facility] [address] [id number] [place] [address] Mar, [facility] [place] [facility] [address] [id number] [place] [address] Mar, [facility] [place] [facility] [address] [id number] [facility] [facility] [place] [address] Mar, [facility] [place] [facility] [address] [facility] [id number] [facility] [facility] [place] [address] Mar, [facility] [place] [facility] [address] [id number] [facility] [facility] [place] [address] Mar, [facility] [place] [facility] [address] [id number] [facility] [facility] [place] [address] Mar, [facility] [place] [facility] [address] [facility] [id number] [facility] [facility] [place] [address] Mar, [facility] [place] [facility] [address] [id number] [facility] [facility] [place] [address] Mar, [facility] [place] [facility] [address] [id number] [place] [address] Mar, [facility] [place] [facility] [address] [id number] [facility] [facility] [place] [address] Mar, [facility] [place] [facility] [address] [id number] [place] [address] Feb, [facility] [place] [facility] [address] [id number] [facility] [facility] [place] [address] Feb, [facility] [place] [facility] [address] [id number] [place] [address] Feb, [facility] [place] [facility] [address] [id number] [place] [address] Feb, [facility] [place] [facility] [address] [id number] [place] [address] Jan, [facility] [place] [facility] [address] [id number] [place] [address] 25 Nov, 2012 [facility] [place] [facility] [address] [id number] [place] [address] 16 Nov, 2012 [facility] [place] [facility] [address] [id number] [place] [address] 15 Nov, 2012 [facility] [place] [facility] [address] [id number] [place] [address] Nov, [facility] [place] [facility] [address] [id number] [place] [address] Oct, [facility] [place] [facility] [address] [id number] [place] [address] Sep, [facility] [place] [facility] [address] [id number] [place] [address] Sep, [facility] [place] [facility] [address] [id number] [place] [address] Aug, [facility] [place] [facility] [address] [id number] [place] [address] Jul, [facility] [place] [facility] [address] [id number] [place] [address] Jul, [facility] [place] [facility] [address] [id number] [place] [address] May, [facility] [place] [facility] [address] [id number] [place] [address] May, [facility] [place] [facility] [address] [id number] [place] [address] May, [facility] [place] [facility] [address] [id number] [place] [address] May, [facility] [place] [facility] [address] [id number] [place] [address] Apr, [facility] [place] [facility] [address] [id number] [place] [address] Mar, [facility] [place] [facility] [address] [id number] [place] [address] Mar, [facility] [place] [facility] [address] [place] [id number] [place] [address] Mar, [facility] [place] [facility] [address] [id number] [place] [address] Mar, [facility] [place] [facility] [address] [id number] [place] [address] Mar, [facility] [place] [facility] [address] [id number] [place] [address] Mar, [facility] [place] [facility] [address] [id number] [place] [address] Mar, [facility] [place] [facility] [address] [id number] [place] [address] Mar, [facility] [place] [facility] [address] [id number] [place] [address] Feb, [facility] [place] [facility] [address] [id number] [place] [address] Feb, [facility] [place] [facility] [address] [id number] [place] [address] Jan, [facility] [place] [facility] [address] [id number] [place] [address] December, [facility] [place] [facility] [address] [id number] [place] [address] December, [facility] [place] [facility] [address] [id number] [place] [address] Nov, [facility] [place] [facility] [address] [id number] [place] [address] Nov, [facility] [place] [facility] [address] [id number] [place] [address] Nov, [facility] [place] [facility] [address] [id number] [place] [address] Nov, [facility] [place] [facility] [address] [id number] [place] [address] Oct, [facility] [place] [facility] [address] [id number] [place] [address] Sep, [facility] [place] [facility] [address] [id number] [place] [address] Sep, [facility] [place] [facility] [address] [id number] [place] [address] Sep, [facility] [place] [facility] [address] [id number] [place] [address] 17 Sep, 2011 [facility] [place] [facility] [address] [id number] [place] [address] 16 Sep, 2011 [facility] [place] [facility] [address] [id number] [place] [address] 16 Sep, 2011 [facility] [place] [facility] [address] [id number] [place] [address] 15 Sep, 2011 [facility] [place] [facility] [address] [id number] [place] [address] 15 Sep, 2011 [facility] [address] [id number] [place] [address] Aug, [facility] [address] [id number] [place] [address] Jul, [facility] [address] [id number] [place] [address] 14 Jul, 2011 [facility] [address] [id number] [place] [address] 14 Jul, 2011 [facility] [address] [id number] [place] [address] Jun, [facility] [address] [id number] [place] [address] Jul, [facility] [address] [id number] [place] [address] Jul, [facility] [address] [id number] [place] [address] Jul, [facility] [address] [id number] [place] [address] Jul, [facility] [address] [id number] [place] [address] Jul, [facility] [address] [id number] [place] [address] May, [facility] [address] [id number] [place] [address] May, [facility] [address] [id number] [place] [address] May, [facility] [address] [id number] [place] [address] Apr, [facility] [address] [id number] [place] [address] Jun, [facility] [address] [id number] [place] [address] Jun, [facility] [address] [id number] [place] [address] May, [facility] [address] [id number] [place] [address] Jan, IMMUNIZATIONS No Known Immunizations SOCIAL HISTORY [...]
--- OUTSIDE RECORDS SUMMARY | 2019-11-01 20:26 | XMS REPORT ---
Author Author Nyasia IVERSON Organization [facility] Address [address] [place] [address] Care Team Providers Care Bridge Builder Name Role Phone HARRIET IVERSON Unavailable PROBLEMS Type Condition ICD9-CM Code VHJ98-XH Code Onset Dates Condition S tatus SNOMED Code Problem Costochondritis 733.6 Active 6410 9004 Problem Grief reaction F43.21 Active 01257 5009 Problem Hyperlipidemia E78.5 Active 63801 004 Problem Unspecified cardiac dysrhythmia 427.9 Active 360240708 Problem Diabetes 250.00 Active 45482442 Problem Type 2 diabetes mellitus without complications E11 .9 Active 03013601 Problem Essential hypertension I10 Active [id number] ALLERGIES No Information ENCOUNTERS Encounter Location Date Diagnosis [id number] [place] [address] Mar, Type 2 diabetes mellitus wit hout complications E11.9 [place] [address] [place] [id number] [place] [address] December, Insect bite (nonvenomous), l eft thigh, initial encounter S70.362A ; Local infection of the skin and subcutaneous tissue, unspecified L08.9 and Bitten or stung by nonvenomous insect and other nonvenomous arthropods, initial encounter W57.XXXA [place] [address] [place] [address] December, [place] [address] [place] [id number] [address] [place] [address] Nov, [place] [address] [place] [id number] [address] [place] [address] Nov, [place] [address] [place] [id number] [address] [place] [address] Oct, URI (upper respiratory infec tion) J06.9 ; Type 2 diabetes mellitus without complications E11.9 and Hyperlipidemia E78.5 [facility] [address] [place] [id number] [address] [place] [address] Aug, [facility] [address] [place] [id number] [address] [place] [address] Jun, Acute nasopharyngitis J00 [facility] [address] [place] [id number] [address] [place] [address] May, Encounter for immunization Z 23 [place] [address] [address] 20 Apr, 2018 [place] [address] [place] [id number] [place] [address] Apr, Type 2 diabetes mellitus wit hout complications E11.9 [place] [address] [place] [id number] [address] [place] [address] Apr, Type 2 diabetes mellitus wit hout complications E11.9 ; Grief reaction F43.21 and Essential hypertension I10 [place] [address] [place] [id number] [address] [place] [address] Mar, Type 2 diabetes mellitus wit hout complications E11.9 [place] [address] [place] [id number] [address] [place] [address] Mar, Type 2 diabetes mellitus wit hout complications E11.9 [facility] [address] [place] [id number] [address] [place] [address] Feb, [facility] [address] [place] [id number] [address] [place] [address] Jan, [place] [address] [place] [id number] [address] [place] [address] Nov, Type 2 diabetes mellitus wit hout complications E11.9 [place] [address] [place] [id number] [address] [place] [address] Oct, [facility] [address] [id number] [address] [place] [address] Oct, Labia irritation N90.89 [facility] [address] [id number] [address] [place] [address] Sep, [facility] [address] [id number] [address] [place] [address] Sep, [facility] [address] [id number] [address] [place] [address] Sep, [facility] [address] [id number] [address] [place] [address] Aug, [facility] [address] [id number] [address] [place] [address] Jul, [facility] [address] [id number] [address] [place] [address] Jul, [facility] [address] [id number] [address] [place] [address] Mar, Type 2 diabetes mellitus wit hout complications E11.9 ; Acute pain of right knee M25.561 and Essential hypertension I10 [facility] [address] [facility] [id number] [address] [place] [address] Mar, [facility] [address] [id number] [address] [place] [address] Mar, Dysuria R30.0 [facility] [address] [id number] [address] [place] [address] December, [facility] [address] [id number] [address] [place] [address] Nov, [facility] [address] [facility] [id number] [address] [place] [address] Nov, Dental examination Z01.20 [facility] [address] [facility] [id number] [address] [place] [address] Nov, Dental examination Z01.20 [place] [address] [facility] [id number] [address] [place] [address] Nov, Non-intractable vomiting wit h nausea, unspecified vomiting type R11.2 ; Arthralgia, unspecified joint M25.50 ; Fever, unspecified fever cause R50.9 ; Type 2 diabetes mellitus without complications E11.9 and Tooth pain K08.89 [place] [address] [address] Nov, Type 2 diabetes mellitus wit hout complications E11.9 [place] [address] [address] Nov, Type 2 diabetes mellitus wit hout complications E11.9 and Bronchitis J40 [place] [address] [address] Oct, Type 2 diabetes mellitus wit hout complications E11.9 [place] [address] [place] [id number] [place] [address] Jul, [place] [address] [address] Jul, Dysuria R30.0 ; Hematuria R3 1.9 and Vaginal pain R10.2 [place] [address] [place] [id number] [address] [place] [address] Jul, Dysuria R30.0 ; Vaginal disc harge N89.8 and Low back strain, initial encounter S39.012A [place] [address] [place] [id number] [address] [place] [address] Jun, Bacterial conjunctivitis of right eye H10.9 ; Sore throat J02.9 and Acute non-recurrent maxillary sinusitis J01.00 [place] [address] [place] [id number] [address] [place] [address] Jun, [place] [address] [place] [id number] [address] [place] [address] May, [facility] [address] [id number] [address] [place] [address] 27 Apr, 2016 [facility] [address] [id number] [address] [place] [address] 14 Apr, 2016 [facility] [address] [id number] [address] [place] [address] Apr, [facility] [address] [id number] [address] [place] [address] Apr, Type 2 diabetes mellitus wit hout complications E11.9 [facility] [address] [id number] [address] [place] [address] Mar, [facility] [address] [id number] [address] [place] [address] Feb, Bronchitis J40 [facility] [address] [id number] [address] [place] [address] Feb, Bronchitis J40 [facility] [address] [id number] [address] [place] [address] Feb, Type 2 diabetes mellitus wit hout complications E11.9 [facility] [address] [id number] [address] [place] [address] Feb, [facility] [address] [id number] [address] [place] [address] Feb, [facility] [address] [id number] [address] [place] [address] Feb, Type 2 diabetes mellitus wit hout complications E11.9 and Dysuria R30.0 [facility] [address] [id number] [address] [place] [address] Jan, Type 2 diabetes mellitus wit hout complications E11.9 [facility] [address] [id number] [address] [place] [address] 14 Jan, 2016 Type 2 diabetes mellitus wit hout complications E11.9 [facility] [address] [id number] [address] [place] [address] December, Type 2 diabetes mellitus wit hout complications E11.9 [facility] [address] [facility] [id number] [address] [place] [address] Nov, Type 2 diabetes mellitus wit hout complications E11.9 [facility] [address] [facility] [id number] [address] [place] [address] Oct, Type 2 diabetes mellitus wit hout complications E11.9 ; Fever R50.9 ; Myalgia M79.1 and Cough R05 [facility] [address] [facility] [id number] [address] [place] [address] 15 Sep, 2015 Dysuria R30.0 and Cystitis N 30.90 [place] [address] [place] [id number] [address] [place] [address] Sep, [place] [address] [address] Sep, [facility] [id number] [place] [id number] Aug, Dental examination Z01.20 [place] [address] [place] [id number] [address] [place] [address] Aug, Type 2 diabetes mellitus wit hout complications E11.9 [facility] [address] [place] [address] Jul, Dysfunction of left eustachi an tube H69.82 [facility] [address] [place] [address] Jun, [facility] [address] [place] [id number] [address] [place] [address] Jun, Cellulitis L03.90 [facility] [address] [place] [id number] [address] [place] [address] Jun, [facility] [address] [place] [id number] [address] [place] [address] Jun, [facility] [address] [place] [id number] [address] [place] [address] Jun, [facility] [address] [place] [id number] [address] [place] [address] May, Dermatofibroma of ankle, rig ht D23.71 [facility] [address] [place] [id number] [address] [place] [address] May, [place] [address] [place] [id number] [place] [address] Apr, Diabetes 250.00 and 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 [place] [address] [place] [id number] [place] [address] Apr, [place] [address] [place] [id number] [place] [address] Apr, [place] [address] [address] Apr, Diabetes 250.00 ; Influenza vaccine administered V04.81 and Allergic rhinitis 477.9 [place] [address] [place] [id number] [place] [address] Mar, [place] [address] [place] [id number] [place] [address] Jan, [place] [address] [place] [id number] [address] [place] [address] Jan, DM w/o complication type II 250.00 [place] [address] [place] [id number] [address] [place] [address] December, DM w/o complication type II 250.00 ; Calcaneal spur 726.73 ; Vaginitis due to Amanda 112.1 and Onychomycosis 110.1 [place] [address] [place] [id number] [address] [place] [address] Nov, Amanda infection of genital region 112.2 [place] [address] [place] [id number] [address] [place] [address] 14 Nov, 2014 [facility] [address] [id number] [address] [place] [address], [place] [address] 13 Nov, 2014 [facility] [address] [id number] [address] [place] [address], [place] [address] Oct, [facility] [address] [id number] [address] [place] [address], [place] [address] Oct, [facility] [address] [id number] [address] [place] [address], [place] [address] Sep, [facility] [address] [id number] [address] [place] [address], [place] [address] Sep, [facility] [address] [id number] [address] [place] [address], [place] [address] Jul, [facility] [address] [id number] [address] [place] [address], [place] [address] Jul, [facility] [address] [id number] [address] [place] [address], [place] [address] Jun, [facility] [address] [id number] [address] [place] [address], [place] [address] Jun, [facility] [address] [id number] [address] [place] [address], [place] [address] Jun, [facility] [address] [id number] [address] [place] [address], [place] [address] Jun, [facility] [address] [id number] [address] [place] [address], [place] [address] May, [facility] [address] [id number] [address] [place] [address], [place] [address] May, [facility] [address] [id number] [address] [place] [address], [place] [address] May, [facility] [address] [id number] [address] [place] [address], [place] [address] May, [facility] [address] [id number] [facility] [place] [address] Apr, 2013 [facility] [address] [id number] [facility] [place] [address] Apr, [facility] [address] [id number] [address] [place] [address], [place] [address] Apr, [facility] [address] [id number] [address] [place] [address], [place] [address] Apr, [facility] [address] [id number] [address] [place] [address], [place] [address] Mar, [facility] [address] [id number] [address] [place] [address], [place] [address] Mar, [facility] [address] [id number] [address] [place] [address], [place] [address] Mar, [facility] [address] [id number] [address] [place] [address], [place] [address] Mar, [facility] [address] [id number] [address] [place] [address], [place] [address] Mar, [facility] [address] [id number] [address] [place] [address], [place] [address] Mar, [facility] [address] [id number] [address] [place] [address], [place] [address] Mar, [facility] [address] [id number] [address] [place] [address], [place] [address] Mar, [facility] [address] [id number] [address] [place] [address], [place] [address] Mar, [facility] [address] [id number] [address] [place] [address], [place] [address] Mar, [facility] [address] [id number] [address] [place] [address], [place] [address] Mar, [facility] [address] [id number] [address] [place] [address], [place] [address] Mar, [facility] [address] [id number] [facility] [place] [address] Feb, [facility] [address] [id number] [address] [place] [address], [place] [address] Feb, [facility] [address] [id number] [address] [place] [address], [place] [address] Jan, [facility] [address] [id number] [address] [place] [address], [place] [address] Jan, [facility] [address] [id number] [address] [place] [address], [place] [address] Jan, [facility] [address] [id number] [address] [place] [address], [place] [address] Jan, [facility] [address] [id number] [address] [place] [address], [place] [address] December, [facility] [address] [id number] [address] [place] [address], [place] [address] December, [facility] [address] [id number] [address] [place] [address], [place] [address] December, [facility] [address] [id number] [address] [place] [address], [place] [address] December, [facility] [address] [id number] [address] [place] [address], [place] [address] Nov, [facility] [address] [id number] [address] [place] [address], [place] [address] Nov, [facility] [address] [id number] [address] [place] [address], [place] [address] Nov, [facility] [address] [id number] [address] [place] [address], [place] [address] Nov, [facility] [address] [id number] [address] [place] [address], [place] [address] Nov, [facility] [address] [id number] [address] [place] [address], [place] [address] Nov, [facility] [address] [id number] [address] [place] [address], [place] [address] Nov, [facility] [address] [id number] [address] [place] [address], [place] [address] Oct, [facility] [address] [id number] [address] [place] [address], [place] [address] Oct, [facility] [address] [id number] [address] [place] [address], [place] [address] Oct, [facility] [address] [id number] [address] [place] [address], [place] [address] Oct, [facility] [address] [id number] [address] [place] [address], [place] [address] Oct, [facility] [address] [id number] [address] [place] [address], [place] [address] Oct, [facility] [address] [id number] [address] [place] [address], [place] [address] Oct, [facility] [address] [id number] [address] [place] [address], [place] [address] 07 Sep, 2013 [facility] [address] [id number] [address] [place] [address], [place] [address] Sep, [facility] [address] [id number] [address] [place] [address], [place] [address] Sep, [facility] [address] [id number] [address] [place] [address], [place] [address] Sep, [facility] [address] [id number] [address] [place] [address], [place] [address] Aug, [facility] [address] [id number] [address] [place] [address], [place] [address] Aug, [facility] [address] [id number] [address] [place] [address], [place] [address] Aug, [facility] [address] [id number] [address] [place] [address], [place] [address] Aug, [facility] [address] [id number] [address] [place] [address], [place] [address] Jul, [facility] [address] [id number] [address] [place] [address], [place] [address] Jul, [facility] [address] [id number] [address] [place] [address], [place] [address] Apr, [facility] [address] [id number] [address] [place] [address], [place] [address] Apr, [facility] [address] [id number] [address] [place] [address], [place] [address] Mar, [facility] [address] [id number] [address] [place] [address], [place] [address] Mar, [facility] [address] [id number] [address] [place] [address], [place] [address] Mar, [facility] [address] [id number] [address] [place] [address], [place] [address] Mar, [facility] [address] [id number] [address] [place] [address], [place] [address] Mar, [facility] [address] [id number] [address] [place] [address], [place] [address] Mar, [facility] [address] [id number] [address] [place] [address], [place] [address] Mar, [facility] [address] [id number] [address] [place] [address], [place] [address] Mar, [facility] [address] [id number] [address] [place] [address], [place] [address] Mar, [facility] [address] [id number] [address] [place] [address], [place] [address] Mar, [facility] [address] [id number] [address] [place] [address], [place] [address] 31 Feb, 2013 [facility] [address] [id number] [address] [place] [address], [place] [address] 26 Feb, 2013 [facility] [address] [id number] [address] [place] [address], [place] [address] 18 Feb, 2013 [facility] [address] [id number] [address] [place] [address], [place] [address] 08 Feb, 2013 [facility] [address] [id number] [address] [place] [address], [place] [address] Jan, [facility] [address] [id number] [address] [place] [address], [place] [address] 25 Nov, 2012 [facility] [address] [id number] [address] [place] [address], [place] [address] 16 Nov, 2012 [facility] [address] [id number] [address] [place] [address], [place] [address] 15 Nov, 2012 [facility] [address] [id number] [address] [place] [address], [place] [address] Nov, [facility] [address] [id number] [address] [place] [address], [place] [address] Oct, [facility] [address] [id number] [address] [place] [address], [place] [address] Sep, [facility] [address] [id number] [address] [place] [address], [place] [address] Sep, [facility] [address] [id number] [address] [place] [address], [place] [address] Aug, [facility] [address] [id number] [address] [place] [address], [place] [address] Jul, [facility] [address] [id number] [address] [place] [address], [place] [address] Jul, [facility] [address] [id number] [address] [place] [address], [place] [address] May, [facility] [address] [id number] [facility] [place] [address] May, [facility] [address] [id number] [address] [place] [address], [place] [address] May, [facility] [address] [id number] [address] [place] [address], [place] [address] May, [facility] [address] [id number] [address] [place] [address], [place] [address] Apr, [facility] [address] [id number] [address] [place] [address], [place] [address] Mar, [facility] [address] [id number] [address] [place] [address], [place] [address] Mar, [facility] [address] [id number] [address] [place] [address], [place] [address] Mar, [facility] [address] [id number] [address] [place] [address], [place] [address] Mar, [facility] [address] [id number] [address] [place] [address], [place] [address] Mar, [facility] [address] [id number] [address] [place] [address], [place] [address] Mar, [facility] [address] [id number] [address] [place] [address], [place] [address] Mar, [facility] [address] [id number] [address] [place] [address], [place] [address] Mar, [facility] [address] [id number] [address] [place] [address], [place] [address] Feb, [facility] [address] [id number] [address] [place] [address], [place] [address] Feb, [facility] [address] [id number] [address] [place] [address], [place] [address] Jan, [facility] [address] [id number] [address] [place] [address], [place] [address] December, [facility] [address] [id number] [address] [place] [address], [place] [address] December, [facility] [address] [id number] [address] [place] [address], [place] [address] 23 Nov, 2011 [facility] [address] [address] [id number] [address] [place] [address], [place] [address] 19 Nov, 2011 [facility] [address] [id number] [address] [place] [address], [place] [address] 18 Nov, 2011 [facility] [address] [id number] [address] [place] [address], [place] [address] Nov, [facility] [address] [id number] [address] [place] [address], [place] [address] 08 Oct, 2011 [facility] [address] [id number] [address] [place] [address], [place] [address] 29 Sep, 2011 [facility] [address] [id number] [address] [place] [address], [place] [address] 21 Sep, 2011 [facility] [address] [id number] [address] [place] [address], [place] [address] 17 Sep, 2011 [facility] [address] [id number] [address] [place] [address], [place] [address] 17 Sep, 2011 [facility] [address] [id number] [address] [place] [address], [place] [address] 16 Sep, 2011 [facility] [address] [id number] [address] [place] [address], [place] [address] 16 Sep, 2011 [facility] [address] [id number] [address] [place] [address], [place] [address] 15 Sep, 2011 [facility] [address] [id number] [address] [place] [address], [place] [address] 15 Sep, 2011 [facility] [address] [id number] [address] [place] [address], [place] [address] 05 Aug, 2011 [facility] [address] [id number] [address] [place] [address], [place] [address] 29 Jul, 2011 [facility] [address] [id number] [address] [place] [address], [place] [address] 14 Jul, 2011 [facility] [address] [id number] [address] [place] [address], [place] [address] 14 Jul, 2011 [facility] [address] [id number] [address] [place] [address], [place] [address] 08 Jun, 2011 [facility] [address] [id number] [address] [place] [address], [place] [address] Jul, [facility] [address] [id number] [address] [place] [address], [place] [address] Jul, [facility] [address] [id number] [address] [place] [address], [place] [address] 16 Jul, 2010 [facility] [address] [id number] [address] [place] [address], [place] [address] 02 Jul, 2010 [facility] [address] [id number] [address] [place] [address], [place] [address] Jul, [facility] [address] [id number] [address] [place] [address], [place] [address] 28 May, 2010 [facility] [address] [id number] [address] [place] [address], [place] [address] May, [facility] [address] [id number] [address] [place] [address], [place] [address] May, [facility] [address] [id number] [address] [place] [address], [place] [address] 15 Apr, 2010 [facility] [address] [id number] [address] [place] [address], [place] [address] 13 Jun, 2009 [facility] [address] [id number] [address] [place] [address], [place] [address] 13 Jun, 2009 [facility] [address] [id number] [address] [place] [address], [place] [address] May, [facility] [address] [facility] [id number] [address] [place] [address] Jan, IMMUNIZATIONS No Known Immunizations SOCIAL HISTORY Never Assessed REASON FOR VISIT PLAN OF CARE VITAL SIGNS Height 63 in 2014-06-30 Weight 198.3 lbs 2014-06-30 Temperature 97.1 degrees Fahrenheit 2014-06-30 Heart Rate 88 bpm 2014-06-30 Respiratory Rate 16 2014-06-30 Blood pressure systolic 116 mmHg 2014-06-30 Blood pressure diastolic 76 mmHg 2014-06-30 MEDICATIONS Unknown Medications RESULTS No Results PROCEDURES Procedure Date Ordered Result Body Site STREP A ASSAY W/OPTIC Jun 30, 2014 INSTRUCTIONS MEDICATIONS ADMINISTERED No Known Medications [...]
--- OUTSIDE RECORDS SUMMARY | 2019-11-01 20:26 | XMS REPORT ---
Author Author Nyasia Johnson Organization [facility] Address [address] [place] [address] Care Team Providers Care Alcoholic Counselor Name Role Phone CANDY Johnson Unavailable PROBLEMS Type Condition ICD9-CM Code [id number] Code Onset Dates Condition S tatus SNOMED Code Problem Costochondritis 733.6 Active 6410 9004 Problem Grief reaction F43.21 Active 03837 5009 Problem Hyperlipidemia E78.5 Active 56410 004 Problem Unspecified cardiac dysrhythmia 427.9 Active 694632320 Problem Diabetes 250.00 Active 23504671 Problem Type 2 diabetes mellitus without complications E11 .9 Active 34182812 Problem Essential hypertension I10 Active [id number] ALLERGIES No Information ENCOUNTERS Encounter Location Date Diagnosis [place] [address] [address] Jul, [place] [address] [address] Jun, Encounter for immunization Z23 [place] [address] [address] Mar, Type 2 diabetes mellitus without complic ations E11.9 [place] [address] [address] December, Insect bite (nonvenomous), left thigh, i nitial encounter S70.362A ; Local infection of the skin and subcutaneous tissue, unspecified L08.9 and Bitten or stung by nonvenomous insect and other nonvenomous arthropods, initial encounter W57.XXXA [place] [address] [address] December, [place] [address] [address] Nov, [facility] [address] [address] Nov, [facility] [address] [address] Oct, URI (upper respiratory infection) J06.9 ; Type 2 diabetes mellitus without complications E11.9 and Hyperlipidemia E78.5 [place] [address] [address] Aug, [facility] [address] [address] Jun, Acute nasopharyngitis J00 [place] [address] [address] May, Encounter for immunization Z23 [place] [address] [address] Apr, [place] [address] [address] Apr, Type 2 diabetes mellitus without complic ations E11.9 [place] [address] [address] Apr, Type 2 diabetes mellitus without complic ations E11.9 ; Grief reaction F43.21 and Essential hypertension I10 [place] [address] [address] Mar, Type 2 diabetes mellitus without complic ations E11.9 [place] [address] [address] Mar, Type 2 diabetes mellitus without complic ations E11.9 [place] [address] [address] Feb, [facility] [address] [address] Jan, [place] [address] [address] Nov, Type 2 diabetes mellitus without complic ations E11.9 [facility] [address] [address] Oct, [facility] [address] [address] Oct, Labia irritation N90.89 [facility] [address] [address] Sep, [facility] [address] [address] Sep, [facility] [address] [address] Sep, [facility] [address] [address] Aug, [facility] [address] [address] Jul, [facility] [address] [address] Jul, [facility] [address] [address] Mar, Type 2 diabetes mellitus without complic ations E11.9 ; Acute pain of right knee M25.561 and Essential hypertension I10 [facility] [address] [address] Mar, [facility] [address] [address] Mar, Dysuria R30.0 [facility] [address] [address] December, [facility] [address] [address] Nov, [facility] [address] [address] Nov, Dental examination Z01.20 [facility] [address] [address] Nov, Dental examination Z01.20 [place] [address] [address] Nov, Non-intractable vomiting with nausea, un specified vomiting type R11.2 ; Arthralgia, unspecified joint M25.50 ; Fever, unspecified fever cause R50.9 ; Type 2 diabetes mellitus without complications E11.9 and Tooth pain K08.89 [place] [address] [address] Nov, Type 2 diabetes mellitus without complic ations E11.9 [place] [address] [address] Nov, Type 2 diabetes mellitus without complic ations E11.9 and Bronchitis J40 [place] [address] [address] Oct, Type 2 diabetes mellitus without complic ations E11.9 [place] [address] [address] Jul, [place] [address] [address] Jul, Dysuria R30.0 ; Hematuria R31.9 and Vagi nal pain R10.2 [place] [address] [address] Jul, Dysuria R30.0 ; Vaginal discharge N89.8 and Low back strain, initial encounter S39.012A [place] [address] [address] Jun, Bacterial conjunctivitis of right eye H1 0.9 ; Sore throat J02.9 and Acute non-recurrent maxillary sinusitis J01.00 [place] [address] [address] Jun, [place] [address] [address] May, [place] [address] [place] [id number] 27 Apr, 2016 [facility] [address] [id number] [place] [address] 14 Apr, 2016 [facility] [address] [id number] [place] [address] Apr, [facility] [address] [id number] [place] [address] Apr, Type 2 diabetes mellitus without complic ations E11.9 [facility] [address] [id number] [place] [address] Mar, [facility] [address] [id number] [place] [address] Feb, Bronchitis J40 [facility] [address] [place] [id number] [place] [address] Feb, Bronchitis J40 [facility] [address] [place] [id number] [place] [address] Feb, Type 2 diabetes mellitus without complic ations E11.9 [facility] [address] [id number] [place] [address] Feb, [facility] [address] [id number] [place] [address] Feb, [facility] [address] [id number] [place] [address] Feb, Type 2 diabetes mellitus without complic ations E11.9 and Dysuria R30.0 [facility] [address] [place] [id number] [place] [address] Jan, Type 2 diabetes mellitus without complic ations E11.9 [facility] [address] [place] [id number] [place] [address] Jan, Type 2 diabetes mellitus without complic ations E11.9 [facility] [address] [id number] [place] [address] December, Type 2 diabetes mellitus without complic ations E11.9 [facility] [address] [address] Nov, Type 2 diabetes mellitus without complic ations E11.9 [facility] [address] [address] Oct, Type 2 diabetes mellitus without complic ations E11.9 ; Fever R50.9 ; Myalgia M79.1 and Cough R05 [place] [address] [address] Sep, Dysuria R30.0 and Cystitis N30.90 [place] [address] [address] Sep, [place] [address] [address] Sep, [facility] [address] [id number] Aug, Dental examination Z01.20 [place] [address] [address] Aug, Type 2 diabetes mellitus without complic ations E11.9 [place] [address] [address] Jul, Dysfunction of left eustachian tube H69. 82 [place] [address] [address] Jun, [facility] [address] [address] Jun, Cellulitis L03.90 [facility] [address] [address] Jun, [place] [address] [address] Jun, [facility] [address] [address] Jun, [facility] [address] [address] May, Dermatofibroma of ankle, right D23.71 [place] [address] [address] May, [place] [address] [address] Apr, Diabetes 250.00 and 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 [place] [address] [address] Apr, [place] [address] [address] Apr, [address] [address] Apr, Diabetes 250.00 ; Influenza vaccine admi nistered V04.81 and Allergic rhinitis 477.[address] [address] Mar, [place] [address] [address] Jan, [place] [address] [address] Jan, DM w/o complication type II 250.[address] [address] December, DM w/o complication type II 250.00 ; Stephen caneal spur 726.73 ; Vaginitis due to Amanda 112.1 and Onychomycosis 110.1 [place] [address] [address] 30 Nov, 2014 Amanda infection of genital region 112. [address] [address] Nov, [address] [address] Nov, [address] [address] Oct, [address] [id number] [place] [address] Oct, [facility] [place] [facility] [address] [id number] [place] [address] Sep, [facility] [place] [facility] [address] [id number] [place] [address] Sep, [facility] [place] [facility] [address] [id number] [place] [address] Jul, [facility] [place] [facility] [address] [id number] [place] [address] Jul, [facility] [place] [facility] [address] [id number] [place] [address] Jun, [facility] [place] [facility] [address] [id number] [place] [address] Jun, [facility] [place] [facility] [address] [id number] [place] [address] Jun, [facility] [place] [facility] [address] [id number] [place] [address] Jun, [facility] [place] [facility] [address] [id number] [place] [address] May, [facility] [place] [facility] [address] [id number] [place] [address] May, [facility] [place] [facility] [address] [id number] [place] [address] May, [facility] [place] [facility] [address] [id number] [place] [address] May, [facility] [place] [address] [id number] [place] [address] Apr, [facility] [place] [facility] [address] [id number] [place] [address] Apr, [facility] [place] [address] [id number] [place] [address] 08 Apr, 2014 [facility] [place] [facility] [address] [id number] [place] [address] Apr, [facility] [place] [facility] [address] [id number] [facility] [place] [address] Mar, [facility] [place] [facility] [address] [id number] [place] [address] Mar, [facility] [place] [facility] [address] [facility] [id number] [place] [address] Mar, [facility] [address] [id number] [facility] [place] [address] Mar, [facility] [place] [address] [facility] [id number] [facility] [place] [address] Mar, [facility] [place] [address] [id number] [place] [address] Mar, [facility] [place] [address] [id number] [place] [address] Mar, [facility] [place] [address] [id number] [place] [address] Mar, [facility] [address] [id number] [place] [address] Mar, [facility] [place] [facility] [address] [id number] [place] [address] Mar, [facility] [place] [facility] [address] [id number] [place] [address] Mar, [facility] [place] [facility] [address] [id number] [place] [address] Mar, [facility] [address] [facility] [id number] [place] [address] Feb, [facility] [place] [facility] [address] [id number] [place] [address] Feb, [facility] [place] [facility] [address] [id number] [place] [address] Jan, [facility] [address] [id number] [place] [address] Jan, [facility] [place] [address] [id number] [facility] [place] [address] Jan, [facility] [address] [facility] [id number] [facility] [place] [address] Jan, [facility] [place] [facility] [address] [facility] [id number] [place] [address] December, [facility] [place] [facility] [address] [id number] [place] [address] December, [facility] [place] [facility] [address] [id number] [place] [address] December, [facility] [place] [facility] [address] [facility] [id number] [facility] [place] [address] December, [facility] [place] [facility] [address] [id number] [place] [address] Nov, [facility] [place] [facility] [address] [id number] [place] [address] Nov, [facility] [place] [facility] [address] [id number] [place] [address] Nov, [facility] [place] [facility] [address] [id number] [place] [address] Nov, [facility] [place] [facility] [address] [id number] [place] [address] Nov, [facility] [place] [facility] [address] [id number] [place] [address] Nov, [facility] [place] [facility] [address] [id number] [place] [address] Nov, [facility] [place] [facility] [address] [facility] [id number] [place] [address] Oct, [facility] [address] [id number] [place] [address] Oct, [facility] [place] [facility] [address] [id number] [place] [address] Oct, [facility] [place] [facility] [address] [id number] [place] [address] Oct, [facility] [place] [address] [id number] [place] [address] Oct, [facility] [address] [id number] [place] [address] Oct, [facility] [place] [facility] [address] [id number] [place] [address] Oct, [facility] [place] [address] [id number] [place] [address] Sep, [facility] [address] [id number] [place] [address] Sep, [facility] [place] [facility] [address] [id number] [place] [address] Sep, [facility] [place] [facility] [address] [id number] [place] [address] Sep, [facility] [place] [facility] [address] [id number] [place] [address] Aug, [facility] [place] [facility] [address] [id number] [place] [address] Aug, [facility] [place] [facility] [address] [id number] [place] [address] Aug, [facility] [place] [facility] [address] [id number] [place] [address] Aug, [facility] [place] [facility] [address] [id number] [place] [address] Jul, [facility] [address] [id number] [place] [address] Jul, [facility] [place] [facility] [address] [id number] [place] [address] Apr, [facility] [place] [facility] [address] [id number] [place] [address] Apr, [facility] [place] [facility] [address] [id number] [place] [address] Mar, [facility] [place] [facility] [address] [id number] [place] [address] Mar, [facility] [address] [id number] [facility] [place] [address] Mar, [facility] [place] [facility] [address] [facility] [id number] [facility] [place] [address] Mar, [facility] [place] [facility] [address] [id number] [facility] [place] [address] Mar, [facility] [place] [facility] [address] [id number] [facility] [place] [address] Mar, [facility] [place] [facility] [address] [facility] [id number] [facility] [place] [address] Mar, [facility] [place] [facility] [address] [id number] [facility] [place] [address] Mar, [facility] [place] [facility] [address] [id number] [place] [address] Mar, [facility] [place] [facility] [address] [id number] [facility] [place] [address] Mar, [facility] [place] [facility] [address] [id number] [place] [address] Feb, [facility] [place] [facility] [address] [id number] [facility] [address] Feb, [facility] [place] [facility] [address] [id number] [place] [address] Feb, [facility] [place] [facility] [address] [id number] [place] [address] Feb, [facility] [place] [facility] [address] [id number] [place] [address] Jan, [facility] [place] [facility] [address] [id number] [place] [address] 25 Nov, 2012 [facility] [place] [facility] [address] [id number] [place] [address] 16 Nov, 2012 [facility] [place] [facility] [address] [id number] [place] [address] 15 Nov, 2012 [facility] [place] [facility] [address] [id number] [place] [address] Nov, [facility] [place] [facility] [address] [id number] [place] [address] Oct, [facility] [place] [facility] [address] [id number] [place] [address] Sep, [facility] [place] [facility] [address] [id number] [place] [address] Sep, [facility] [place] [facility] [address] [id number] [place] [address] Aug, [facility] [place] [facility] [address] [id number] [place] [address] Jul, [facility] [place] [facility] [address] [id number] [place] [address] Jul, [facility] [place] [facility] [address] [id number] [place] [address] May, [facility] [place] [facility] [address] [id number] [place] [address] May, [facility] [place] [facility] [address] [id number] [place] [address] May, [facility] [address] [id number] [place] [address] May, [facility] [place] [facility] [address] [id number] [place] [address] Apr, [facility] [place] [facility] [address] [id number] [place] [address] Mar, [facility] [place] [facility] [address] [id number] [place] [address] Mar, [facility] [address] [id number] [place] [address] Mar, [facility] [address] [id number] [place] [address] Mar, [facility] [place] [facility] [address] [id number] [place] [address] Mar, [facility] [address] [id number] [place] [address] Mar, [facility] [place] [facility] [address] [id number] [place] [address] Mar, [facility] [address] [id number] [place] [address] Mar, [facility] [address] [id number] [place] [address] Feb, [facility] [address] [id number] [place] [address] Feb, [facility] [address] [id number] [place] [address] Jan, [facility] [address] [id number] [place] [address] December, [facility] [address] [id number] [place] [address] December, [facility] [address] [id number] [place] [address] Nov, [facility] [address] [id number] [place] [address] Nov, [facility] [address] [id number] [place] [address] Nov, [facility] [address] [id number] [place] [address] Nov, [facility] [facility] [address] [id number] [place] [address] Oct, [facility] [place] [facility] [address] [id number] [place] [address] Sep, [facility] [place] [facility] [address] [id number] [place] [address] Sep, [facility] [place] [facility] [address] [id number] [place] [address] Sep, [facility] [place] [facility] [address] [id number] [place] [address] 17 Sep, 2011 [facility] [place] [facility] [address] [id number] [place] [address] 16 Sep, 2011 [facility] [address] [id number] [place] [address] 16 Sep, 2011 [facility] [address] [id number] [place] [address] 15 Sep, 2011 [facility] [address] [id number] [place] [address] 15 Sep, 2011 [facility] [address] [id number] [place] [address] Aug, [facility] [address] [id number] [place] [address] Jul, [facility] [address] [id number] [place] [address] 14 Jul, 2011 [facility] [address] [id number] [place] [address] 14 Jul, 2011 [facility] [address] [id number] [place] [address] Jun, [facility] [address] [id number] [place] [address] Jul, [facility] [address] [id number] [place] [address] Jul, [facility] [address] [id number] [place] [address] Jul, [facility] [address] [id number] [place] [address] Jul, [facility] [address] [id number] [place] [address] Jul, [facility] [address] [id number] [place] [address] May, [facility] [address] [id number] [place] [address] May, [facility] [address] [id number] [place] [address] May, [facility] [address] [id number] [place] [address] Apr, [facility] [address] [id number] [place] [address] Jun, [facility] [address] [id number] [place] [address] Jun, [facility] [address] [id number] [place] [address] May, [facility] [address] [id number] [place] [address] Jan, IMMUNIZATIONS No Known Immunizations SOCIAL HISTORY Never Assessed REASON FOR VISIT PLAN OF CARE VITAL SIGNS Height 63 in 2014-01-17 Weight 194.19 lbs 2014-01-17 Temperature 97.1 degrees Fahrenheit 2014-01-17 Heart Rate 78 bpm 2014-01-17 Respiratory Rate 18 2014-01-17 Blood pressure systolic 114 mmHg 2014-01-17 Blood pressure diastolic 80 mmHg 2014-01-17 MEDICATIONS Unknown Medications RESULTS No Results PROCEDURES Procedure Date Ordered Result Body Site URINE TEST January 17, 2014 URINALYSIS, AUTO, W/O SCOPE January 17, 2014 INSTRUCTIONS MEDICATIONS ADMINISTERED No Known Medications [...]
--- OUTSIDE RECORDS SUMMARY | 2019-11-01 20:26 | XMS REPORT ---
Author Author Nyasia Juarez Doctor Organization [facility] Address Unknown Phone Unavailable Care Team Providers Care Transformer Inspector Name Role Phone Migration, Doctor Unavailable Unavailable PROBLEMS Type Condition ICD9-CM Code [id number] Code Onset Dates Condition S tatus SNOMED Code Problem Costochondritis 733.6 Active 6410 9004 Problem Grief reaction F43.21 Active 35017 5009 Problem Hyperlipidemia E78.5 Active 44687 004 Problem Unspecified cardiac dysrhythmia 427.9 Active 468002736 Problem Diabetes 250.00 Active 79156754 Problem Type 2 diabetes mellitus without complications E11 .9 Active 53242485 Problem Essential hypertension I10 Active [id number] ALLERGIES No Information ENCOUNTERS Encounter Location Date Diagnosis [place] [address] [place] [id number] [address] [place] [address] Mar, Type 2 diabetes mellitus wit hout complications E11.9 [place] [address] [place] [address] December, Insect bite (nonvenomous), l eft thigh, initial encounter S70.362A ; Local infection of the skin and subcutaneous tissue, unspecified L08.9 and Bitten or stung by nonvenomous insect and other nonvenomous arthropods, initial encounter W57.XXXA [place] [address] [place] [address] December, [place] [address] [place] [id number] [place] [address] Nov, [place] [address] [place] [id number] [address] [place] [address] Nov, [place] [address] [place] [id number] [address] [place] [address] Oct, URI (upper respiratory infec tion) J06.9 ; Type 2 diabetes mellitus without complications E11.9 and Hyperlipidemia E78.5 [facility] [address] [facility] [id number] [address] [place] [address] Aug, [facility] [address] [facility] [id number] [address] [place] [address] Jun, Acute nasopharyngitis J00 [facility] [address] [facility] [id number] [address] [place] [address] May, Encounter for immunization Z 23 [facility] [address] [facility] [id number] [address] [place] [address] 20 Apr, 2018 [facility] [address] [facility] [id number] [address] [place] [address] Apr, Type 2 diabetes mellitus wit hout complications E11.9 [facility] [address] [facility] [id number] [address] [place] [address] Apr, Type 2 diabetes mellitus wit hout complications E11.9 ; Grief reaction F43.21 and Essential hypertension I10 [facility] [address] [facility] [id number] [address] [place] [address] Mar, Type 2 diabetes mellitus wit hout complications E11.9 [facility] [address] [facility] [id number] [address] [place] [address] Mar, Type 2 diabetes mellitus wit hout complications E11.9 [facility] [address] [facility] [id number] [address] [place] [address] Feb, [facility] [address] [facility] [id number] [address] [place] [address] Jan, [facility] [address] [facility] [id number] [address] [place] [address] Nov, Type 2 diabetes mellitus wit hout complications E11.9 [facility] [address] [facility] [id number] [address] [place] [address] Oct, [facility] [address] [facility] [id number] [address] [place] [address] Oct, Labia irritation N90.89 [facility] [address] [id number] [address] [place] [address] Sep, [facility] [address] [id number] [address] [place] [address] Sep, [facility] [address] [id number] [address] [place] [address] Sep, [facility] [address] [id number] [address] [place] [address] Aug, [facility] [address] [id number] [address] [place] [address] Jul, [facility] [address] [id number] [address] [place] [address] Jul, [facility] [address] [id number] [address] [place] [address] Mar, Type 2 diabetes mellitus wit hout complications E11.9 ; Acute pain of right knee M25.561 and Essential hypertension I10 [facility] [address] [id number] [address] [place] [address] Mar, [facility] [address] [id number] [address] [place] [address] Mar, Dysuria R30.0 [facility] [address] [id number] [address] [place] [address] December, [facility] [address] [id number] [address] [place] [address] Nov, [facility] [address] [id number] [address] [place] [address] Nov, Dental examination Z01.20 [facility] [address] [id number] [address] [place] [address] Nov, Dental examination Z01.20 [facility] [address] [id number] [address] [place] [address] Nov, Non-intractable vomiting wit h nausea, unspecified vomiting type R11.2 ; Arthralgia, unspecified joint M25.50 ; Fever, unspecified fever cause R50.9 ; Type 2 diabetes mellitus without complications E11.9 and Tooth pain K08.89 [place] [address] [place] [id number] [address] [place] [address] Nov, Type 2 diabetes mellitus wit hout complications E11.9 [place] [address] [address] Nov, Type 2 diabetes mellitus wit hout complications E11.9 and Bronchitis J40 [place] [address] [address] Oct, Type 2 diabetes mellitus wit hout complications E11.9 [place] [address] [place] [id number] [address] [place] [address] Jul, [place] [address] [place] [id number] [address] [place] [address] Jul, Dysuria R30.0 ; Hematuria R3 1.9 and Vaginal pain R10.2 [place] [address] [place] [address] Jul, Dysuria R30.0 ; Vaginal disc harge N89.8 and Low back strain, initial encounter S39.012A [place] [address] [place] [id number] [address] [place] [address] Jun, Bacterial conjunctivitis of right eye H10.9 ; Sore throat J02.9 and Acute non-recurrent maxillary sinusitis J01.00 [place] [address] [place] [address] Jun, [place] [address] [place] [id number] [address] [place] [address] May, [place] [address] [place] [id number] [address] [place] [address] Apr, [facility] [address] [id number] [address] [place] [address] Apr, [facility] [address] [id number] [address] [place] [address] Apr, [facility] [address] [id number] [address] [place] [address] Apr, Type 2 diabetes mellitus wit hout complications E11.9 [facility] [address] [id number] [address] [place] [address] Mar, [facility] [address] [id number] [address] [place] [address] Feb, Bronchitis J40 [facility] [address] [id number] [address] [place] [address] Feb, Bronchitis J40 [facility] [address] [id number] [address] [place] [address] Feb, Type 2 diabetes mellitus wit hout complications E11.9 [facility] [address] [id number] [address] [place] [address] Feb, [facility] [address] [id number] [address] [place] [address] Feb, [facility] [address] [id number] [address] [place] [address] Feb, Type 2 diabetes mellitus wit hout complications E11.9 and Dysuria R30.0 [facility] [address] [id number] [address] [place] [address] Jan, Type 2 diabetes mellitus wit hout complications E11.9 [facility] [address] [id number] [address] [place] [address] Jan, Type 2 diabetes mellitus wit hout complications E11.9 [facility] [address] [id number] [address] [place] [address] December, Type 2 diabetes mellitus wit hout complications E11.9 [facility] [address] [place] [id number] [address] [place] [address] Nov, Type 2 diabetes mellitus wit hout complications E11.9 [place] [address] [address] Oct, Type 2 diabetes mellitus wit hout complications E11.9 ; Fever R50.9 ; Myalgia M79.1 and Cough R05 [place] [address] [address] 15 Sep, 2015 Dysuria R30.0 and Cystitis N 30.90 [place] [address] [address] Sep, [place] [address] [address] Sep, [facility] [address] [place] [id number] [place] [id number] Aug, Dental examination Z01.20 [place] [address] [place] [id number] [place] [address] Aug, Type 2 diabetes mellitus wit hout complications E11.9 [place] [address] [address] Jul, Dysfunction of left eustachi an tube H69.82 [place] [address] [place] [id number] [address] [place] [address] Jun, [place] [address] [place] [id number] [address] [place] [address] Jun, Cellulitis L03.90 [place] [address] [place] [id number] [address] [place] [address] Jun, [place] [address] [address] Jun, [place] [address] [place] [id number] [address] [place] [address] Jun, [place] [address] [facility] [id number] [address] [place] [address] May, Dermatofibroma of ankle, rig ht D23.71 [place] [address] [facility] [id number] [address] [place] [address] May, [place] [address] [place] [id number] [address] [place] [address] Apr, Diabetes 250.00 and 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 [place] [address] [place] [id number] [address] [place] [address] Apr, [place] [address] [address] Apr, [place] [address] [place] [id number] [address] [place] [address] Apr, Diabetes 250.00 ; Influenza vaccine administered V04.81 and Allergic rhinitis 477.9 [place] [address] [place] [id number] [address] [place] [address] Mar, [place] [address] [place] [id number] [address] [place] [address] Jan, [place] [address] [place] [id number] [address] [place] [address] Jan, DM w/o complication type II 250.00 [place] [id number] [address] [place] [address] December, DM w/o complication type II 250.00 ; Calcaneal spur 726.73 ; Vaginitis due to [place] 112.1 and Onychomycosis 110.1 [place] [address] [place] [id number] [address] [place] [address] 30 Nov, 2014 [place] infection of genital region 112.2 [place] [address] [place] [id number] [address] [place] [address] Nov, [place] [address] [place] [id number] [address] [place] [address] [place] [address] Nov, [facility] [address] [id number] [address] [place] [address], [place] [address] Oct, [facility] [address] [id number] [address] [place] [address], [place] [address] Oct, [facility] [address] [id number] [address] [place] [address], [place] [address] Sep, [facility] [address] [id number] [address] [place] [address], [place] [address] Sep, [facility] [address] [id number] [address] [place] [address], [place] [address] Jul, [facility] [address] [id number] [address] [place] [address], [place] [address] Jul, [facility] [address] [id number] [address] [place] [address], [place] [address] Jun, [facility] [address] [id number] [address] [place] [address], [place] [address] Jun, [facility] [address] [id number] [address] [place] [address], [place] [address] Jun, [facility] [address] [id number] [address] [place] [address], [place] [address] Jun, [facility] [address] [id number] [address] [place] [address], [place] [address] May, [facility] [address] [id number] [address] [place] [address], [place] [address] May, [facility] [address] [id number] [address] [place] [address], [place] [address] May, [facility] [address] [id number] [address] [place] [address], [place] [address] May, [facility] [address] [id number] [address] [place] [address], [place] [address] Apr, [facility] [address] [id number] [facility] [place] [address] Apr, [facility] [address] [id number] [facility] [place] [address] Apr, [facility] [address] [id number] [facility] [place] [address] Apr, [facility] [address] [id number] [address] [place] [address], [place] [address] Mar, [facility] [address] [id number] [address] [place] [address], [place] [address] Mar, [facility] [address] [id number] [address] [place] [address], [place] [address] Mar, [facility] [address] [id number] [address] [place] [address], [place] [address] Mar, [facility] [address] [id number] [address] [place] [address], [place] [address] Mar, [facility] [address] [id number] [address] [place] [address], [place] [address] Mar, [facility] [address] [id number] [address] [place] [address], [place] [address] Mar, [facility] [address] [id number] [address] [place] [address], [place] [address] Mar, [facility] [address] [id number] [address] [place] [address], [place] [address] Mar, [facility] [address] [id number] [address] [place] [address], [place] [address] Mar, [facility] [address] [id number] [address] [place] [address], [place] [address] Mar, [facility] [address] [id number] [address] [place] [address], [place] [address] Mar, [facility] [address] [id number] [address] [place] [address], [place] [address] Feb, [facility] [address] [id number] [address] [place] [address], [place] [address] Feb, [facility] [address] [id number] [address] [place] [address], [place] [address] Jan, [facility] [address] [id number] [address] [place] [address], [place] [address] Jan, [facility] [address] [id number] [address] [place] [address], [place] [address] Jan, [facility] [address] [id number] [address] [place] [address], [place] [address] Jan, [facility] [address] [id number] [address] [place] [address], [place] [address] December, [facility] [address] [id number] [address] [place] [address], [place] [address] December, [facility] [address] [id number] [address] [place] [address], [place] [address] December, [facility] [address] [id number] [address] [place] [address], [place] [address] December, [facility] [address] [id number] [address] [place] [address], [place] [address] Nov, [facility] [address] [id number] [address] [place] [address], [place] [address] Nov, [facility] [address] [id number] [address] [place] [address], [place] [address] Nov, [facility] [address] [id number] [address] [place] [address], [place] [address] Nov, [facility] [address] [id number] [address] [place] [address], [place] [address] Nov, [facility] [address] [id number] [address] [place] [address], [place] [address] Nov, [facility] [address] [id number] [address] [place] [address], [place] [address] 02 Nov, 2013 [facility] [address] [id number] [address] [place] [address], [place] [address] Oct, [facility] [address] [id number] [address] [place] [address], [place] [address] 31 Oct, 2013 [facility] [address] [id number] [address] [place] [address], [place] [address] 28 Oct, 2013 [facility] [address] [id number] [address] [place] [address], [place] [address] Oct, [facility] [address] [id number] [address] [place] [address], [place] [address] Oct, [facility] [address] [id number] [address] [place] [address], [place] [address] Oct, [facility] [address] [id number] [address] [place] [address], [place] [address] Oct, [facility] [address] [id number] [address] [place] [address], [place] [address] 07 Sep, 2013 [facility] [address] [id number] [address] [place] [address], [place] [address] 07 Sep, 2013 [facility] [address] [id number] [address] [place] [address], [place] [address] Sep, [facility] [address] [id number] [address] [place] [address], [place] [address] Sep, [facility] [address] [id number] [address] [place] [address], [place] [address] Aug, [facility] [address] [id number] [address] [place] [address], [place] [address] Aug, [facility] [address] [id number] [address] [place] [address], [place] [address] Aug, [facility] [address] [id number] [address] [place] [address], [place] [address] Aug, [facility] [address] [id number] [address] [place] [address], [place] [address] Jul, [facility] [address] [id number] [address] [place] [address], [place] [address] Jul, [facility] [address] [id number] [address] [place] [address], [place] [address] Apr, [facility] [address] [id number] [address] [place] [address], [place] [address] Apr, [facility] [address] [id number] [address] [place] [address], [place] [address] Mar, [facility] [address] [id number] [address] [place] [address], [place] [address] Mar, [facility] [address] [id number] [address] [place] [address], [place] [address] Mar, [facility] [address] [id number] [address] [place] [address], [place] [address] Mar, [facility] [address] [id number] [address] [place] [address], [place] [address] Mar, [facility] [address] [id number] [address] [place] [address], [place] [address] Mar, [facility] [address] [id number] [address] [place] [address], [place] [address] Mar, [facility] [address] [id number] [address] [place] [address], [place] [address] Mar, [facility] [address] [id number] [address] [place] [address], [place] [address] Mar, [facility] [address] [id number] [address] [place] [address], [place] [address] Mar, [facility] [address] [id number] [address] [place] [address], [place] [address] Feb, [facility] [address] [id number] [address] [place] [address], [place] [address] 26 Feb, 2013 [facility] [address] [id number] [address] [place] [address], [place] [address] 18 Feb, 2013 [facility] [address] [id number] [address] [place] [address], [place] [address] 08 Feb, 2013 [facility] [address] [id number] [address] [place] [address], [place] [address] Jan, [facility] [address] [id number] [address] [place] [address], [place] [address] 25 Nov, 2012 [facility] [address] [id number] [address] [place] [address], [place] [address] 16 Nov, 2012 [facility] [address] [id number] [address] [place] [address], [place] [address] 15 Nov, 2012 [facility] [address] [id number] [address] [place] [address], [place] [address] Nov, [facility] [address] [id number] [address] [place] [address], [place] [address] Oct, [facility] [address] [id number] [address] [place] [address], [place] [address] Sep, [facility] [address] [id number] [address] [place] [address], [place] [address] Sep, [facility] [address] [id number] [address] [place] [address], [place] [address] Aug, [facility] [address] [id number] [address] [place] [address], [place] [address] Jul, [facility] [address] [id number] [address] [place] [address], [place] [address] Jul, [facility] [address] [id number] [address] [place] [address], [place] [address] May, [facility] [address] [id number] [address] [place] [address], [place] [address] May, [facility] [address] [id number] [address] [place] [address], [place] [address] May, [facility] [address] [id number] [address] [place] [address], [place] [address] May, [facility] [address] [id number] [address] [place] [address], [place] [address] Apr, [facility] [address] [id number] [address] [place] [address], [place] [address] Mar, [facility] [address] [id number] [address] [place] [address], [place] [address] Mar, [facility] [address] [id number] [address] [place] [address], [place] [address] Mar[facility] [address] [address] [id number] [address] [place] [address], [place] [address] Mar, [facility] [address] [id number] [address] [place] [address], [place] [address] Mar, [facility] [address] [id number] [address] [place] [address], [place] [address] Mar, [facility] [address] [id number] [address] [place] [address], [place] [address] Mar, [facility] [address] [id number] [address] [place] [address], [place] [address] Mar, [facility] [address] [id number] [address] [place] [address], [place] [address] Feb, [facility] [address] [id number] [address] [place] [address], [place] [address] Feb, [facility] [address] [id number] [address] [place] [address], [place] [address] Jan, [facility] [address] [id number] [address] [place] [address], [place] [address] December, [facility] [address] [id number] [address] [place] [address], [place] [address] December, [facility] [address] [id number] [address] [place] [address], [place] [address] 23 Nov, 2011 [facility] [address] [id number] [address] [place] [address], [place] [address] 19 Nov, 2011 [facility] [address] [id number] [address] [place] [address], [place] [address] 18 Nov, 2011 [facility] [address] [id number] [address] [place] [address], [place] [address] 10 Nov, 2011 [facility] [address] [id number] [address] [place] [address], [place] [address] 08 Oct, 2011 [facility] [address] [id number] [address] [place] [address], [place] [address] 29 Sep, 2011 [facility] [address] [id number] [address] [place] [address], [place] [address] 21 Sep, 2011 [facility] [address] [id number] [address] [place] [address], [place] [address] 17 Sep, 2011 [facility] [address] [id number] [address] [place] [address], [place] [address] 17 Sep, 2011 [facility] [address] [id number] [address] [place] [address], [place] [address] 16 Sep, 2011 [facility] [address] [id number] [address] [place] [address], [place] [address] 16 Sep, 2011 [facility] [address] [id number] [address] [place] [address], [place] [address] 15 Sep, 2011 [facility] [address] [id number] [address] [place] [address], [place] [address] 15 Sep, 2011 [facility] [address] [id number] [address] [place] [address], [place] [address] Aug, [facility] [address] [id number] [address] [place] [address], [place] [address] Jul, [facility] [address] [id number] [address] [place] [address], [place] [address] 14 Jul, 2011 [facility] [address] [id number] [address] [place] [address], [place] [address] 14 Jul, 2011 [facility] [address] [id number] [address] [place] [address], [place] [address] 08 Jun, 2011 [facility] [address] [id number] [address] [place] [address], [place] [address] Jul, [facility] [address] [id number] [address] [place] [address], [place] [address] Jul, [facility] [address] [id number] [address] [place] [address], [place] [address] Jul, [facility] [address] [id number] [address] [place] [address], [place] [address] Jul, [facility] [address] [id number] [address] [place] [address], [place] [address] Jul, [facility] [address] [id number] [address] [place] [address], [place] [address] May, [facility] [address] [id number] [address] [place] [address], [place] [address] May, [facility] [address] [id number] [address] [place] [address], [place] [address] May, [facility] [address] [id number] [address] [place] [address], [place] [address] 15 Apr, 2010 [facility] [address] [id number] [address] [place] [address], [place] [address] Jun, [facility] [address] [id number] [address] [place] [address], [place] [address] Jun, [facility] [address] [id number] [address] [place] [address], [place] [address] 27 May, 2009 [facility] [address] [id number] [address] [place] [address], [place] [address] Jan, IMMUNIZATIONS No Known Immunizations SOCIAL HISTORY [...] History tumor removal left leg Hospitalization History [facility] 03/2012
--- OUTSIDE RECORDS SUMMARY | 2019-11-01 20:27 | XMS REPORT ---
Author Author Nyasia Juarez Doctor Organization [facility] Address Unknown Phone Unavailable Care Team Providers Care Trimmer Operator Three Knife Name Role Phone Migration, Doctor Unavailable Unavailable PROBLEMS Type Condition ICD9-CM Code LAU84-YT Code Onset Dates Condition S tatus SNOMED Code Problem Costochondritis 733.6 Active 6410 9004 Problem Grief reaction F43.21 Active 64602 5009 Problem Hyperlipidemia E78.5 Active 37900 004 Problem Unspecified cardiac dysrhythmia 427.9 Active 264693785 Problem Diabetes 250.00 Active 53987710 Problem Type 2 diabetes mellitus without complications E11 .9 Active 24613934 Problem Essential hypertension I10 Active 50368318 ALLERGIES No Information ENCOUNTERS Encounter Location Date Diagnosis [place] [address] [address] December, Insect bite (nonvenomous), l eft thigh, initial encounter S70.362A ; Local infection of the skin and subcutaneous tissue, unspecified L08.9 and Bitten or stung by nonvenomous insect and other nonvenomous arthropods, initial encounter W57.XXXA [place] [address] [address] December, [place] [address] [address] Nov, [place] [address] [address] Nov, [place] [address] [address] Oct, URI (upper respiratory infec tion) J06.9 ; Type 2 diabetes mellitus without complications E11.9 and Hyperlipidemia E78.5 [place] [address] [address] [place] [id number] [place] [address] Aug, [facility] [address] [facility] [id number] [address] [place] [address] Jun, Acute nasopharyngitis J00 [facility] [address] [facility] [id number] [address] [place] [address] May, Encounter for immunization Z 23 [facility] [address] [facility] [id number] [address] [place] [address] 20 Apr, 2018 [facility] [address] [facility] [id number] [place] [address] Apr, Type 2 diabetes mellitus wit hout complications E11.9 [facility] [address] [place] [id number] [place] [address] Apr, Type 2 diabetes mellitus wit hout complications E11.9 ; Grief reaction F43.21 and Essential hypertension I10 [facility] [address] [place] [id number] [address] [place] [address] Mar, Type 2 diabetes mellitus wit hout complications E11.9 [facility] [address] [facility] [id number] [address] [place] [address] Mar, Type 2 diabetes mellitus wit hout complications E11.9 [facility] [address] [place] [id number] [address] [place] [address] Feb, [facility] [address] [facility] [id number] [address] [place] [address] Jan, [facility] [address] [facility] [id number] [address] [place] [address] Nov, Type 2 diabetes mellitus wit hout complications E11.9 [facility] [address] [facility] [id number] [address] [place] [address] Oct, [facility] [address] [place] [id number] [address] [place] [address] Oct, Labia irritation N90.89 [facility] [address] [place] [id number] [address] [place] [address] Sep, [facility] [address] [facility] [id number] [address] [place] [address] Sep, [facility] [address] [facility] [id number] [address] [place] [address] Sep, [facility] [address] [place] [id number] [place] [address] Aug, [facility] [address] [place] [id number] [place] [address] Jul, [facility] [address] [place] [id number] [place] [address] Jul, [facility] [address] [place] [id number] [place] [address] Mar, Type 2 diabetes mellitus wit hout complications E11.9 ; Acute pain of right knee M25.561 and Essential hypertension I10 [facility] [address] [address] Mar, [facility] [address] [place] [id number] [place] [address] Mar, Dysuria R30.0 [facility] [address] [place] [id number] [place] [address] December, [facility] [address] [address] Nov, [facility] [address] [place] [id number] [address] [place] [address] Nov, Dental examination Z01.20 [facility] [address] [address] Nov, Dental examination Z01.20 [facility] [address] [place] [id number] [address] [place] [address] Nov, Non-intractable vomiting wit h nausea, unspecified vomiting type R11.2 ; Arthralgia, unspecified joint M25.50 ; Fever, unspecified fever cause R50.9 ; Type 2 diabetes mellitus without complications E11.9 and Tooth pain K08.89 [facility] [address] [id number] [address] [place] [address] Nov, Type 2 diabetes mellitus wit hout complications E11.9 [place] [address] [id number] [address] [place] [address] Nov, Type 2 diabetes mellitus wit hout complications E11.9 and Bronchitis J40 [facility] [address] [id number] [address] [place] [address] Oct, Type 2 diabetes mellitus wit hout complications E11.9 [place] [address] [id number] [address] [place] [address] Jul, [place] [address] [facility] [id number] [address] [place] [address] Jul, Dysuria R30.0 ; Hematuria R3 1.9 and Vaginal pain R10.2 [place] [address] [id number] [address] [place] [address] Jul, Dysuria R30.0 ; Vaginal disc harge N89.8 and Low back strain, initial encounter S39.012A [place] [address] [id number] [address] [place] [address] Jun, Bacterial conjunctivitis of right eye H10.9 ; Sore throat J02.9 and Acute non-recurrent maxillary sinusitis J01.00 [place] [address] [id number] [address] [place] [address] Jun, [facility] [address] [id number] [address] [place] [address] May, [place] [address] [id number] [address] [place] [address] Apr, [facility] [address] [id number] [address] [place] [address] Apr, [place] [address] [id number] [address] [place] [address] Apr, [facility] [address] [id number] [address] [place] [address] Apr, Type 2 diabetes mellitus wit hout complications E11.9 [facility] [address] [id number] [address] [place] [address] Mar, [facility] [address] [id number] [address] [place] [address] Feb, Bronchitis J40 [facility] [address] [id number] [address] [place] [address] Feb, Bronchitis J40 [facility] [address] [facility] [id number] [address] [place] [address] Feb, Type 2 diabetes mellitus wit hout complications E11.9 [facility] [address] [id number] [address] [place] [address] Feb, [facility] [address] [id number] [address] [place] [address] Feb, [facility] [address] [id number] [address] [place] [address] Feb, Type 2 diabetes mellitus wit hout complications E11.9 and Dysuria R30.0 [facility] [address] [id number] [address] [place] [address] Jan, Type 2 diabetes mellitus wit hout complications E11.9 [facility] [address] [id number] [address] [place] [address] 14 Jan, 2016 Type 2 diabetes mellitus wit hout complications E11.9 [facility] [address] [id number] [address] [place] [address] December, Type 2 diabetes mellitus wit hout complications E11.9 [facility] [address] [id number] [address] [place] [address] Nov, Type 2 diabetes mellitus wit hout complications E11.9 [facility] [address] [place] [id number] [address] [place] [address] Oct, Type 2 diabetes mellitus wit hout complications E11.9 ; Fever R50.9 ; Myalgia M79.1 and Cough R05 [facility] [address] [place] [id number] [address] [place] [address] 15 Sep, 2015 Dysuria R30.0 and Cystitis N 30.90 [place] [address] [address] [place] [id number] [place] [address] Sep, [place] [address] [address] Sep, [facility] [address] [place] [id number] [address] [place] [id number] Aug, Dental examination Z01.20 [place] [address] [address] Aug, Type 2 diabetes mellitus wit hout complications E11.9 [place] [address] [place] [id number] [place] [address] Jul, Dysfunction of left eustachi an tube H69.82 [place] [address] [place] [id number] [place] [address] Jun, [facility] [address] [place] [id number] [place] [address] Jun, Cellulitis L03.90 [facility] [address] [place] [id number] [place] [address] Jun, [facility] [address] [place] [id number] [place] [address] Jun, [facility] [address] [address] Jun, [facility] [address] [place] [id number] [address] [place] [address] May, Dermatofibroma of ankle, rig ht D23.71 [facility] [address] [place] [id number] [address] [place] [address] May, [place] [address] [address] 29 Apr, 2015 Diabetes 250.00 and 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 [place] [address] [place] [id number] [address] [place] [address] Apr, [facility] [address] [address] Apr, [place] [address] [address] Apr, Diabetes 250.00 ; Influenza vaccine administered V04.81 and Allergic rhinitis 477.[address] [address] Mar, [place] [address] [address] Jan, [place] [address] [place] [id number] [place] [address] Jan, DM w/o complication type II 250.00 [place] [id number] [address] [place] [address] December, DM w/o complication type II 250.00 ; Calcaneal spur 726.73 ; Vaginitis due to Amanda 112.1 and Onychomycosis 110.1 [place] [address] [place] [id number] [place] [address] 30 Nov, 2014 Amanda infection of genital region 112.[address] [address] 14 Nov, 2014 [place] [address] [place] [id number] [address] [place] [address] Nov, [place] [address] [place] [id number] [place] [address] Oct, [facility] [address] [id number] [address] [place] [address], [place] [address] Oct, [facility] [address] [id number] [address] [place] [address], [place] [address] Sep, [facility] [address] [id number] [address] [place] [address], [place] [address] Sep, [facility] [address] [id number] [address] [place] [address], [place] [address] Jul, [facility] [address] [id number] [address] [place] [address], [place] [address] Jul, [facility] [address] [id number] [address] [place] [address], [place] [address] Jun, [facility] [address] [id number] [address] [place] [address], [place] [address] Jun, [facility] [address] [id number] [address] [place] [address], [place] [address] Jun, [facility] [address] [id number] [address] [place] [address], [place] [address] Jun, [facility] [address] [id number] [address] [place] [address], [place] [address] May, [facility] [address] [id number] [address] [place] [address], [place] [address] May, [facility] [address] [id number] [address] [place] [address], [place] [address] May, [facility] [address] [id number] [address] [place] [address], [place] [address] May, [facility] [address] [id number] [address] [place] [address], [place] [address] Apr, [facility] [address] [id number] [address] [place] [address], [place] [address] Apr, [facility] [address] [id number] [facility] [place] [address] Apr, [facility] [address] [id number] [address] [place] [address], [place] [address] Apr, [facility] [address] [id number] [address] [place] [address], [place] [address] Mar, [facility] [address] [id number] [address] [place] [address], [place] [address] Mar, [facility] [address] [id number] [address] [place] [address], [place] [address] Mar, [facility] [address] [id number] [address] [place] [address], [place] [address] Mar, [facility] [address] [id number] [address] [place] [address], [place] [address] Mar, [facility] [address] [id number] [address] [place] [address], [place] [address] Mar, [facility] [address] [id number] [address] [place] [address], [place] [address] Mar, [facility] [address] [id number] [address] [place] [address], [place] [address] Mar, [facility] [address] [id number] [address] [place] [address], [place] [address] Mar, [facility] [address] [id number] [address] [place] [address], [place] [address] Mar, [facility] [address] [id number] [address] [place] [address], [place] [address] Mar, [facility] [address] [id number] [address] [place] [address], [place] [address] Mar, [facility] [address] [id number] [address] [place] [address], [place] [address] Feb, [facility] [address] [id number] [address] [place] [address], [place] [address] Feb, [facility] [address] [id number] [address] [place] [address], [place] [address] Jan, [facility] [address] [id number] [address] [place] [address], [place] [address] Jan, [facility] [address] [id number] [address] [place] [address], [place] [address] Jan, [facility] [address] [id number] [address] [place] [address], [place] [address] Jan, [facility] [address] [id number] [address] [place] [address], [place] [address] December, [facility] [address] [id number] [address] [place] [address], [place] [address] December, [facility] [address] [id number] [address] [place] [address], [place] [address] December, [facility] [address] [id number] [address] [place] [address], [place] [address] December, [facility] [address] [id number] [address] [place] [address], [place] [address] Nov, [facility] [address] [id number] [address] [place] [address], [place] [address] Nov, [facility] [address] [id number] [address] [place] [address], [place] [address] Nov, [facility] [address] [id number] [address] [place] [address], [place] [address] Nov, [facility] [address] [id number] [address] [place] [address], [place] [address] Nov, [facility] [address] [id number] [address] [place] [address], [place] [address] Nov, [facility] [address] [id number] [address] [place] [address], [place] [address] Nov, [facility] [address] [id number] [address] [place] [address], [place] [address] Oct, [facility] [address] [id number] [address] [place] [address], [place] [address] 31 Oct, 2013 [facility] [address] [id number] [address] [place] [address], [place] [address] 28 Oct, 2013 [facility] [address] [id number] [address] [place] [address], [place] [address] Oct, [facility] [address] [id number] [address] [place] [address], [place] [address] Oct, [facility] [address] [id number] [address] [place] [address], [place] [address] Oct, [facility] [address] [id number] [address] [place] [address], [place] [address] Oct, [facility] [address] [id number] [address] [place] [address], [place] [address] 07 Sep, 2013 [facility] [address] [id number] [address] [place] [address], [place] [address] 07 Sep, 2013 [facility] [address] [id number] [address] [place] [address], [place] [address] Sep, [facility] [address] [id number] [address] [place] [address], [place] [address] Sep, [facility] [address] [id number] [address] [place] [address], [place] [address] Aug, [facility] [address] [id number] [address] [place] [address], [place] [address] Aug, [facility] [address] [id number] [address] [place] [address], [place] [address] Aug, [facility] [address] [id number] [address] [place] [address], [place] [address] Aug, [facility] [address] [id number] [address] [place] [address], [place] [address] Jul, [facility] [address] [id number] [facility] [place] [place] [address] 16 Jul, 2013 [facility] [address] [id number] [address] [place] [address], [place] [address] 04 Apr, 2013 [facility] [address] [id number] [address] [place] [address], [place] [address] Apr, [facility] [address] [id number] [address] [place] [address], [place] [address] Mar, [facility] [address] [id number] [address] [place] [address], [place] [address] Mar, [facility] [address] [id number] [address] [place] [address], [place] [address] Mar, [facility] [address] [id number] [address] [place] [address], [place] [address] Mar, [facility] [address] [id number] [address] [place] [address], [place] [address] Mar, [facility] [address] [id number] [address] [place] [address], [place] [address] Mar, [facility] [address] [id number] [address] [place] [address], [place] [address] Mar, [facility] [address] [id number] [address] [place] [address], [place] [address] Mar, [facility] [address] [id number] [address] [place] [address], [place] [address] Mar, [facility] [address] [id number] [address] [place] [address], [place] [address] Mar, [facility] [address] [id number] [address] [place] [address], [place] [address] Feb, [facility] [address] [id number] [address] [place] [address], [place] [address] Feb, [facility] [address] [id number] [address] [place] [address] [address] Feb, [facility] [address] [id number] [address] [place] [address], [place] [address] 08 Feb, 2013 [facility] [address] [id number] [address] [place] [address], [place] [address] Jan, [facility] [address] [id number] [address] [place] [address], [place] [address] Nov, [facility] [address] [id number] [address] [place] [address], [place] [address] 16 Nov, 2012 [facility] [address] [id number] [address] [place] [address], [place] [address] 15 Nov, 2012 [facility] [address] [id number] [address] [place] [address], [place] [address] Nov, [facility] [address] [id number] [address] [place] [address], [place] [address] Oct, [facility] [address] [id number] [address] [place] [address], [place] [address] Sep, [facility] [address] [id number] [address] [place] [address], [place] [address] Sep, [facility] [address] [id number] [address] [place] [address], [place] [address] Aug, [facility] [address] [id number] [address] [place] [address], [place] [address] Jul, [facility] [address] [id number] [address] [place] [address], [place] [address] Jul, [facility] [address] [id number] [address] [place] [address], [place] [address] May, [facility] [address] [id number] [address] [place] [address], [place] [address] May, [facility] [address] [id number] [address] [place] [address], [place] [address] May, [facility] [address] [id number] [address] [place] [address], [place] [address] May, [facility] [address] [id number] [address] [place] [address], [place] [address] Apr, [facility] [address] [id number] [address] [place] [address], [place] [address] Mar, [facility] [address] [id number] [address] [place] [address], [place] [address] Mar, [facility] [address] [id number] [address] [place] [address], [place] [address] Mar, [facility] [address] [id number] [address] [place] [address], [place] [address] Mar, [facility] [address] [id number] [address] [place] [address], [place] [address] Mar, [facility] [address] [id number] [address] [place] [address], [place] [address] Mar, [facility] [address] [id number] [address] [place] [address], [place] [address] Mar, [facility] [address] [id number] [address] [place] [address], [place] [address] Mar, [facility] [address] [id number] [address] [place] [address], [place] [address] Feb, [facility] [address] [id number] [address] [place] [address], [place] [address] Feb, [facility] [address] [id number] [address] [place] [address], [place] [address] Jan, [facility] [address] [id number] [address] [place] [address], [place] [address] December, [facility] [address] [id number] [address] [place] [address], [place] [address] December, [facility] [address] [id number] [address] [place] [address], [place] [address] Nov, [facility] [address] [id number] [address] [place] [address], [place] [address] 19 Nov, 2011 [facility] [address] [id number] [address] [place] [address], [place] [address] 18 Nov, 2011 [facility] [address] [id number] [address] [place] [address], [place] [phone] 10 Nov, 2011 [facility] [address] [id number] [address] [place] [address], [place] [phone] 08 Oct, 2011 [facility] [address] [id number] [address] [place] [address], [place] [address] 29 Sep, 2011 [facility] [address] [id number] [address] [place] [address], [place] [address] 21 Sep, 2011 [facility] [address] [id number] [address] [place] [address], [place] [address] 17 Sep, 2011 [facility] [address] [id number] [address] [place] [address], [place] [address] 17 Sep, 2011 [facility] [address] [id number] [address] [place] [address], [place] [phone] 16 Sep, 2011 [facility] [address] [id number] [address] [place] [address], [place] [phone] 16 Sep, 2011 [facility] [address] [id number] [address] [place] [address], [place] [phone] 15 Sep, 2011 [facility] [address] [id number] [address] [place] [address], [place] [address] 15 Sep, 2011 [facility] [address] [id number] [address] [place] [address], [place] [phone] Aug, [facility] [address] [id number] [address] [place] [address], [place] [address] Jul, [facility] [address] [id number] [address] [place] [address], [place] [address] Jul, [facility] [address] [id number] [address] [place] [phone] 14 Jul, 2011 [facility] [address] [id number] [address] [place] [phone] 08 Jun, 2011 [facility] [address] [id number] [address] [place] [phone] Jul, [facility] [address] [id number] [address] [place] [phone] Jul, [facility] [address] [id number] [address] [place] [phone] 16 Jul, 2010 [facility] [address] [id number] [address] [place] [phone] Jul, [facility] [address] [id number] [address] [place] [phone] Jul, [facility] [address] [id number] [address] [place] [phone] May, [facility] [address] [id number] [address] [place] [phone] May, [facility] [address] [id number] [address] [place] [phone] May, [facility] [address] [id number] [address] [place] [phone] 15 Apr, 2010 [facility] [address] [id number] [address] [place] [phone] Jun, [facility] [address] [id number] [address] [place] [phone] Jun, [facility] [address] [id number] [address] [place] [phone] 27 May, 2009 [facility] [address] [id number] [address] [place] [phone] 16 Jan, 2009 IMMUNIZATIONS No Known Immunizations SOCIAL HISTORY Never Assessed REASON FOR VISIT PLAN OF CARE VITAL SIGNS MEDICATIONS No Known Medications RESULTS No Results [...] History tumor removal left leg Hospitalization History [facility] 03/2012
--- OUTSIDE RECORDS SUMMARY | 2019-11-01 20:27 | XMS REPORT ---
Author Author yNasia RUIZ Organization [facility] Address [address] [place] [address] Care Team Providers Care Oracle Hyperion Consultant Name Role Phone IRVIN RUIZ Unavailable PROBLEMS Type Condition ICD9-CM Code CBA47-GD Code Onset Dates Condition S tatus SNOMED Code Problem Costochondritis 733.6 Active 6410 9004 Problem Grief reaction F43.21 Active 14927 5009 Problem Hyperlipidemia E78.5 Active 95388 004 Problem Unspecified cardiac dysrhythmia 427.9 Active 672883839 Problem Diabetes 250.00 Active 74064487 Problem Type 2 diabetes mellitus without complications E11 .9 Active 02258280 Problem Essential hypertension I10 Active [id number] ALLERGIES No Information ENCOUNTERS Encounter Location Date Diagnosis [place] [address] [place] [id number] [place] [address] Mar, Type 2 diabetes mellitus wit hout complications E11.9 [place] [id number] [place] [address] December, Insect bite (nonvenomous), l eft thigh, initial encounter S70.362A ; Local infection of the skin and subcutaneous tissue, unspecified L08.9 and Bitten or stung by nonvenomous insect and other nonvenomous arthropods, initial encounter W57.XXXA [place] [address] [place] [id number] [place] [address] December, [place] [address] [address] Nov, [place] [address] [place] [id number] [place] [address] Nov, [place] [address] [place] [id number] [place] [address] Oct, URI (upper respiratory infec tion) J06.9 ; Type 2 diabetes mellitus without complications E11.9 and Hyperlipidemia E78.5 [facility] [address] [facility] [id number] [address] [place] [address] Aug, [facility] [address] [facility] [id number] [address] [place] [address] Jun, Acute nasopharyngitis J00 [facility] [address] [facility] [id number] [address] [place] [address] May, Encounter for immunization Z 23 [facility] [address] [facility] [id number] [address] [place] [address] 20 Apr, 2018 [place] [address] [place] [id number] [address] [place] [address] Apr, Type 2 diabetes mellitus wit hout complications E11.9 [place] [address] [place] [id number] [address] [place] [address] Apr, Type 2 diabetes mellitus wit hout complications E11.9 ; Grief reaction F43.21 and Essential hypertension I10 [facility] [address] [facility] [id number] [address] [place] [address] Mar, Type 2 diabetes mellitus wit hout complications E11.9 [place] [address] [facility] [id number] [address] [place] [address] Mar, Type 2 diabetes mellitus wit hout complications E11.9 [facility] [address] [facility] [id number] [address] [place] [address] Feb, [facility] [address] [facility] [id number] [address] [place] [address] Jan, [facility] [address] [place] [id number] [address] [place] [address] Nov, Type 2 diabetes mellitus wit hout complications E11.9 [facility] [address] [place] [id number] [address] [place] [address] Oct, [facility] [address] [id number] [address] [place] [address] Oct, Labia irritation N90.89 [facility] [address] [id number] [address] [place] [address] Sep, [facility] [address] [id number] [address] [place] [address] Sep, [facility] [address] [id number] [address] [place] [address] Sep, [facility] [address] [id number] [address] [place] [address] Aug, [facility] [address] [id number] [address] [place] [address] Jul, [facility] [address] [id number] [address] [place] [address] Jul, [facility] [address] [id number] [address] [place] [address] Mar, Type 2 diabetes mellitus wit hout complications E11.9 ; Acute pain of right knee M25.561 and Essential hypertension I10 [facility] [address] [facility] [id number] [address] [place] [address] Mar, [facility] [address] [facility] [id number] [address] [place] [address] Mar, Dysuria R30.0 [facility] [address] [id number] [address] [place] [address] December, [facility] [address] [id number] [address] [place] [address] Nov, [facility] [address] [facility] [id number] [address] [place] [address] Nov, Dental examination Z01.20 [facility] [address] [facility] [id number] [address] [place] [address] Nov, Dental examination Z01.20 [place] [address] [facility] [id number] [address] [place] [address] Nov, Non-intractable vomiting wit h nausea, unspecified vomiting type R11.2 ; Arthralgia, unspecified joint M25.50 ; Fever, unspecified fever cause R50.9 ; Type 2 diabetes mellitus without complications E11.9 and Tooth pain K08.89 [place] [address] [facility] [id number] [address] [place] [address] Nov, Type 2 diabetes mellitus wit hout complications E11.9 [place] [address] [facility] [id number] [address] [place] [address] Nov, Type 2 diabetes mellitus wit hout complications E11.9 and Bronchitis J40 [place] [address] [facility] [id number] [address] [place] [address] Oct, Type 2 diabetes mellitus wit hout complications E11.9 [place] [id number] [place] [address] Jul, [place] [address] [place] [id number] [address] [place] [address] Jul, Dysuria R30.0 ; Hematuria R3 1.9 and Vaginal pain R10.2 [place] [address] [place] [id number] [address] [place] [address] Jul, Dysuria R30.0 ; Vaginal disc harge N89.8 and Low back strain, initial encounter S39.012A [place] [address] [facility] [id number] [address] [place] [address] Jun, Bacterial conjunctivitis of right eye H10.9 ; Sore throat J02.9 and Acute non-recurrent maxillary sinusitis J01.00 [place] [address] [facility] [id number] [address] [place] [address] Jun, [place] [address] [facility] [id number] [address] [place] [address] May, [facility] [address] [id number] [address] [place] [address] 27 Apr, 2016 [facility] [address] [id number] [address] [place] [address] 14 Apr, 2016 [facility] [address] [id number] [address] [place] [address] Apr, [facility] [address] [id number] [address] [place] [address] Apr, Type 2 diabetes mellitus wit hout complications E11.9 [facility] [address] [id number] [address] [place] [address] Mar, [facility] [address] [id number] [address] [place] [address] Feb, Bronchitis J40 [facility] [address] [id number] [address] [place] [address] Feb, Bronchitis J40 [facility] [address] [id number] [address] [place] [address] Feb, Type 2 diabetes mellitus wit hout complications E11.9 [facility] [address] [id number] [address] [place] [address] Feb, [facility] [address] [id number] [address] [place] [address] Feb, [facility] [address] [id number] [address] [place] [address] Feb, Type 2 diabetes mellitus wit hout complications E11.9 and Dysuria R30.0 [facility] [address] [id number] [address] [place] [address] Jan, Type 2 diabetes mellitus wit hout complications E11.9 [facility] [address] [id number] [address] [place] [address] 14 Jan, 2016 Type 2 diabetes mellitus wit hout complications E11.9 [facility] [address] [id number] [address] [place] [address] December, Type 2 diabetes mellitus wit hout complications E11.9 [facility] [id number] [place] [address] Nov, Type 2 diabetes mellitus wit hout complications E11.9 [facility] [address] [place] [id number] [address] [place] [address] Oct, Type 2 diabetes mellitus wit hout complications E11.9 ; Fever R50.9 ; Myalgia M79.1 and Cough R05 [facility] [address] [place] [id number] [place] [address] 15 Sep, 2015 Dysuria R30.0 and Cystitis N 30.90 [facility] [address] [place] [id number] [address] [place] [address] Sep, [facility] [address] [address] Sep, [facility] [address] [place] [id number] [address] [place] [address] [id number] Aug, Dental examination Z01.20 [facility] [address] [place] [id number] [place] [address] Aug, Type 2 diabetes mellitus wit hout complications E11.9 [facility] [id number] [place] [address] Jul, Dysfunction of left eustachi an tube H69.82 [facility] [address] [place] [address] Jun, [facility] [address] [place] [id number] [address] [place] [address] Jun, Cellulitis L03.90 [facility] [address] [place] [id number] [address] [place] [address] Jun, [facility] [address] [place] [address] Jun, [place] [address] [facility] [id number] [address] [place] [address] Jun, [facility] [address] [facility] [id number] [address] [place] [address] May, Dermatofibroma of ankle, rig ht D23.71 [place] [address] [place] [id number] [address] [place] [address] May, [place] [address] [facility] [id number] [address] [place] [address] Apr, Diabetes 250.00 and 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 [place] [address] [place] [id number] [address] [place] [address] Apr, [place] [address] [place] [id number] [address] [place] [address] Apr, [place] [address] [place] [id number] [address] [place] [address] Apr, Diabetes 250.00 ; Influenza vaccine administered V04.81 and Allergic rhinitis 477.9 [place] [address] [facility] [id number] [address] [place] [address] Mar, [place] [address] [place] [id number] [address] [place] [address] Jan, [place] [address] [place] [id number] [address] [place] [address] Jan, DM w/o complication type II 250.00 [place] [address] [facility] [id number] [address] [place] [address] December, DM w/o complication type II 250.00 ; Calcaneal spur 726.73 ; Vaginitis due to [place] 112.1 and Onychomycosis 110.1 [place] [address] [facility] [id number] [address] [place] [address] Nov, [place] infection of genital region 112.2 [place] [address] [facility] [id number] [address] [place] [address] 14 Nov, 2014 [facility] [address] [id number] [address] [place] [address], [place] [address] 13 Nov, 2014 [facility] [address] [id number] [address] [place] [address], [place] [address] 10 Oct, 2014 [facility] [address] [id number] [address] [place] [address], [place] [address] Oct, [facility] [address] [id number] [address] [place] [address], [place] [address] 24 Sep, 2014 [facility] [address] [id number] [address] [place] [address], [place] [address] Sep, [facility] [address] [id number] [address] [place] [address], [place] [address] Jul, [facility] [address] [id number] [address] [place] [address], [place] [address] Jul, [facility] [address] [id number] [address] [place] [address], [place] [address] Jun, [facility] [address] [id number] [address] [place] [address], [place] [address] Jun, [facility] [address] [id number] [address] [place] [address], [place] [address] Jun, [facility] [address] [id number] [address] [place] [address], [place] [address] Jun, [facility] [address] [id number] [address] [place] [address], [place] [address] May, [facility] [address] [id number] [address] [place] [address], [place] [address] May, [facility] [place] [facility] [address] [id number] [address] [place] [address], [place] [address] May, [facility] [address] [id number] [address] [place] [address], [place] [address] May, [facility] [place] [address] [id number] [facility] [place] [address] Apr, 2013 [facility] [place] [facility] [address] [id number] [facility] [place] [address] Apr, [facility] [place] [address] [id number] [facility] [place] [address] Apr, [facility] [place] [address] [id number] [address] [place] [address], [place] [address] Apr, [facility] [address] [id number] [address] [place] [address], [place] [address] Mar, [facility] [address] [id number] [address] [place] [address], [place] [address] Mar, [facility] [place] [address] [id number] [address] [place] [address], [place] [address] Mar, [facility] [place] [facility] [address] [id number] [address] [place] [address], [place] [address] Mar, [facility] [place] [facility] [address] [id number] [address] [place] [address], [place] [address] Mar, [facility] [address] [id number] [address] [place] [address], [place] [address] Mar, [facility] [address] [id number] [address] [place] [address], [place] [address] Mar, [facility] [address] [id number] [address] [place] [address], [place] [address] Mar, [facility] [address] [id number] [address] [place] [address], [place] [address] Mar, [facility] [place] [address] [id number] [address] [place] [address], [place] [address] Mar, [facility] [address] [id number] [address] [place] [address], [place] [address] Mar, [facility] [address] [id number] [address] [place] [address], [place] [address] Mar, [facility] [address] [id number] [facility] [place] [address] Feb, [facility] [address] [id number] [address] [place] [address], [place] [address] Feb, [facility] [address] [id number] [address] [place] [address], [place] [address] Jan, [facility] [address] [id number] [address] [place] [address], [place] [address] Jan, [facility] [address] [id number] [address] [place] [address], [place] [address] Jan, [facility] [address] [id number] [address] [place] [address], [place] [address] Jan, [facility] [address] [id number] [address] [place] [address], [place] [address] December, [facility] [address] [id number] [address] [place] [address], [place] [address] December, [facility] [address] [id number] [address] [place] [address], [place] [address] December, [facility] [address] [id number] [address] [place] [address], [place] [address] December, [facility] [address] [id number] [address] [place] [address], [place] [address] Nov, [facility] [address] [id number] [address] [place] [address], [place] [address] Nov, [facility] [address] [id number] [address] [place] [address], [place] [address] Nov, [facility] [place] [address] [id number] [address] [place] [address], [place] [address] Nov, [facility] [place] [facility] [address] [id number] [address] [place] [address], [place] [address] Nov, [facility] [place] [facility] [address] [id number] [address] [place] [address] Nov, [facility] [address] [id number] [address] [place] [address], [place] [address] Nov, [facility] [address] [id number] [address] [place] [address], [place] [address] Oct, [facility] [address] [id number] [address] [place] [address], [place] [address] Oct, [facility] [address] [id number] [address] [place] [address], [place] [address] Oct, [facility] [address] [id number] [address] [place] [address], [place] [address] Oct, [facility] [address] [id number] [address] [place] [address], [place] [address] Oct, [facility] [address] [id number] [address] [place] [address], [place] [address] Oct, [facility] [address] [id number] [address] [place] [address], [place] [address] Oct, [facility] [address] [id number] [address] [place] [address], [place] [address] 07 Sep, 2013 [facility] [address] [id number] [address] [place] [address], [place] [address] 07 Sep, 2013 [facility] [address] [id number] [address] [place] [address], [place] [address] Sep, [facility] [address] [id number] [address] [place] [address], [place] [address] Sep, [facility] [address] [id number] [address] [place] [address], [place] [address] Aug, [facility] [address] [id number] [address] [place] [address], [place] [address] Aug, [facility] [address] [id number] [address] [place] [address], [place] [address] Aug, [facility] [address] [id number] [address] [place] [address], [place] [address] Aug, [facility] [address] [id number] [address] [place] [address], [place] [address] Jul, [facility] [address] [id number] [address] [place] [address], [place] [address] Jul, [facility] [address] [id number] [address] [place] [address], [place] [address] Apr, [facility] [address] [id number] [address] [place] [address], [place] [id number] Apr, [facility] [address] [id number] [address] [place] [address], [place] [id number] Mar, [facility] [address] [id number] [address] [place] [address], [place] [id number] Mar, [facility] [address] [id number] [address] [place] [address], [place] [id number] Mar, [facility] [address] [id number] [address] [place] [address], [place] [id number] Mar, [facility] [address] [id number] [address] [place] [address], [place] [id number] Mar, [facility] [address] [id number] [address] [place] [address], [place] [id number] Mar, [facility] [address] [id number] [address] [place] [address], [place] [id number] Mar, [facility] [address] [id number] [address] [place] [address], [place] [id number] Mar, [facility] [address] [id number] [address] [place] [address], [place] [id number] Mar, [facility] [address] [id number] [address] [place] [address], [place] [id number] Mar, [facility] [address] [id number] [address] [place] [address], [place] [id number] 31 Feb, 2013 [facility] [address] [id number] [address] [place] [address], [place] [id number] 26 Feb, 2013 [facility] [address] [id number] [address] [place] [address], [place] [id number] 18 Feb, 2013 [facility] [address] [id number] [address] [place] [address], [place] [id number] 08 Feb, 2013 [facility] [address] [id number] [address] [place] [address], [place] [id number] Jan, [facility] [address] [id number] [address] [place] [address], [place] [id number] 25 Nov, 2012 [facility] [address] [id number] [address] [place] [address], [place] [id number] 16 Nov, 2012 [facility] [address] [id number] [address] [place] [address], [place] [id number] 15 Nov, 2012 [facility] [address] [id number] [address] [place] [address], [place] [id number] Nov, [facility] [address] [id number] [address] [place] [address], [place] [id number] Oct, [facility] [address] [id number] [address] [place] [address], [place] [id number] Sep, [facility] [address] [id number] [address] [place] [address], [place] [id number] Sep, [facility] [address] [id number] [address] [place] [address], [place] [id number] Aug, [facility] [address] [id number] [address] [place] [address], [place] [id number] Jul, [facility] [address] [id number] [address] [place] [address], [place] [id number] Jul, [facility] [address] [id number] [address] [place] [address], [place] [id number] May, [facility] [address] [id number] [address] [place] [address], [place] [id number] May, [facility] [address] [id number] [address] [place] [address], [place] [id number] May, [facility] [address] [id number] [address] [place] [address], [place] [id number] May, [facility] [address] [id number] [address] [place] [address], [place] [id number] Apr, [facility] [address] [id number] [address] [place] [address], [place] [id number] Mar, [facility] [address] [id number] [address] [place] [address], [place] [id number] Mar, [facility] [address] [id number] [address] [place] [address], [place] [id number] Mar, [facility] [address] [id number] [address] [place] [address], [place] [id number] Mar, [facility] [address] [id number] [address] [place], [place] [address], [place] [id number] Mar, [facility] [address] [id number] [address] [place] [address], [place] [id number] Mar, [facility] [address] [id number] [address] [place] [address], [place] [id number] Mar, [facility] [address] [id number] [address] [place] [address], [place] [id number] Mar, [facility] [address] [id number] [address] [place] [address], [place] [id number] Feb, [facility] [address] [id number] [address] [place] [address], [place] [id number] Feb, [facility] [address] [id number] [address] [place] [address], [place] [id number] Jan, [facility] [address] [id number] [address] [address] December, [facility] [address] [id number] [address] [place] [address], [place] [id number] December, [facility] [address] [id number] [address] [place] [address], [place] [id number] 23 Nov, 2011 [facility] [address] [id number] [address] [place] [address], [place] [id number] 19 Nov, 2011 [facility] [address] [id number] [address] [place] [address], [place] [id number] 18 Nov, 2011 [facility] [address] [id number] [address] [place] [address], [place] [id number] Nov, [facility] [address] [id number] [address] [place] [address], [place] [id number] 08 Oct, 2011 [facility] [address] [id number] [address] [place] [address], [place] [id number] 29 Sep, 2011 [facility] [address] [id number] [address] [place] [address], [place] [id number] 21 Sep, 2011 [facility] [address] [id number] [address] [place] [address], [place] [id number] 17 Sep, 2011 [facility] [address] [id number] [address] [place] [address], [place] [id number] 17 Sep, 2011 [facility] [address] [id number] [address] [place] [address], [place] [id number] 16 Sep, 2011 [facility] [address] [id number] [address] [place] [id number] 16 Sep, 2011 [facility] [address] [id number] [address] [place] [address], [place] [id number] 15 Sep, 2011 [facility] [address] [id number] [address] [place] [address], [place] [id number] 15 Sep, 2011 [facility] [address] [id number] [address] [place] [id number] 05 Aug, 2011 [facility] [address] [id number] [address] [place] [address], [place] [id number] 29 Jul, 2011 [facility] [address] [id number] [address] [place] [address], [place] [id number] 14 Jul, 2011 [facility] [address] [id number] [address] [place] [address], [place] [id number] 14 Jul, 2011 [facility] [address] [id number] [address] [place] [address], [place] [id number] 08 Jun, 2011 [facility] [address] [id number] [address] [place] [address], [place] [id number] Jul, [facility] [address] [id number] [address] [place] [address], [place] [id number] Jul, [facility] [address] [id number] [address] [place] [address], [place] [id number] 16 Jul, 2010 [facility] [address] [id number] [address] [place] [address], [place] [id number] Jul, [facility] [address] [id number] [address] [place] [address], [place] [id number] Jul, [facility] [address] [id number] [address] [place] [address], [place] [id number] May, [facility] [address] [id number] [address] [place] [address], [place] [id number] May, [facility] [address] [id number] [address] [place] [address], [place] [id number] May, [facility] [address] [id number] [address] [place] [address], [place] [id number] 15 Apr, 2010 [facility] [address] [id number] [address] [place] [address], [place] [id number] 13 Jun, 2009 [facility] [address] [id number] [address] [place] [address], [place] [id number] 13 Jun, 2009 [facility] [address] [id number] [address] [place] [address], [place] [id number] May, [facility] [address] [facility] [id number] [address] [place] [address] Jan, IMMUNIZATIONS No Known Immunizations SOCIAL HISTORY Never Assessed REASON FOR VISIT PLAN OF CARE VITAL SIGNS Height 63 in 2014-04-07 Weight 197.25 lbs 2014-04-07 Temperature 98.4 degrees Fahrenheit 2014-04-07 Heart Rate 70 bpm 2014-04-07 Respiratory Rate 18 2014-04-07 Blood pressure systolic 124 mmHg 2014-04-07 Blood pressure diastolic 76 mmHg 2014-04-07 MEDICATIONS Unknown Medications RESULTS No Results PROCEDURES Procedure Date Ordered Result Body Site X-RAY EXAM OF SHOULDER Apr 07, 2014 DRAIN/INJECT, JOINT/BURSA Apr 07, 2014 INSTRUCTIONS MEDICATIONS ADMINISTERED No Known Medications MEDICAL (GENERAL) HISTORY Type Description Date Medical History heart murmur Medical History irregular heart beat Medical History muscle around heart is too thick Medical History chronic bronchitis Medical History diabetes mellitus Surgical History tubal ligation 1993 Surgical History dilatation and curettage 1992 Surgical History tumor removal left leg Hospitalization History [facility] 03/2012
--- OUTSIDE RECORDS SUMMARY | 2019-11-01 20:27 | XMS REPORT ---
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 Name Role Phone IRVIN RUIZ Unavailable PROBLEMS Type Condition ICD9-CM Code SBZ82-TH Code Onset Dates Condition S tatus SNOMED Code Problem Costochondritis 733.6 Active 6410 9004 Problem Grief reaction F43.21 Active 67708 5009 Problem Hyperlipidemia E78.5 Active 98839 004 Problem Unspecified cardiac dysrhythmia 427.9 Active 827623157 Problem Diabetes 250.00 Active 60454801 Problem Type 2 diabetes mellitus without complications E11 .9 Active 22852005 Problem Essential hypertension I10 Active 34823014 ALLERGIES No Information ENCOUNTERS Encounter Location Date Diagnosis [place] [address] [place] [id number] [address] [place] [address] Mar, Type 2 diabetes mellitus wit hout complications E11.9 [place] [id number] [address] [place] [address] December, Insect bite (nonvenomous), l eft thigh, initial encounter S70.362A ; Local infection of the skin and subcutaneous tissue, unspecified L08.9 and Bitten or stung by nonvenomous insect and other nonvenomous arthropods, initial encounter W57.XXXA [place] [address] [place] [id number] [address] [place] [address] December, [place] [address] [address] Nov, [place] [address] [place] [id number] [address] [place] [address] Nov, [place] [address] [place] [id number] [place] [phone] Oct, URI (upper respiratory infec tion) J06.9 ; Type 2 diabetes mellitus without complications E11.9 and Hyperlipidemia E78.5 [facility] [address] [facility] [id number] [address] [place] [address] Aug, [facility] [address] [facility] [id number] [address] [place] [address] Jun, Acute nasopharyngitis J00 [facility] [address] [facility] [id number] [address] [place] [address] May, Encounter for immunization Z 23 [facility] [address] [facility] [id number] [address] [place] [phone] 20 Apr, 2018 [place] [address] [place] [id number] [address] [place] [phone] Apr, Type 2 diabetes mellitus wit hout complications E11.9 [place] [address] [place] [id number] [address] [place] [address] Apr, Type 2 diabetes mellitus wit hout complications E11.9 ; Grief reaction F43.21 and Essential hypertension I10 [facility] [address] [facility] [id number] [address] [place] [address] Mar, Type 2 diabetes mellitus wit hout complications E11.9 [place] [address] [facility] [id number] [address] [place] [address] Mar, Type 2 diabetes mellitus wit hout complications E11.9 [facility] [address] [facility] [id number] [address] [place] [phone] Feb, [facility] [address] [facility] [id number] [address] [place] [address] Jan, [facility] [address] [place] [id number] [address] [place] [address] Nov, Type 2 diabetes mellitus wit hout complications E11.9 [facility] [address] [place] [id number] [address] [place] [address] Oct, [facility] [address] [id number] [address] [place] [address] Oct, Labia irritation N90.89 [facility] [address] [id number] [address] [place] [address] Sep, [facility] [address] [id number] [address] [place] [address] Sep, [facility] [address] [id number] [address] [place] [address] Sep, [facility] [address] [id number] [address] [place] [address] Aug, [facility] [address] [id number] [address] [place] [id number] Jul, [facility] [address] [id number] [address] [place] [address] Jul, [facility] [address] [id number] [address] [place] [address] Mar, Type 2 diabetes mellitus wit hout complications E11.9 ; Acute pain of right knee M25.561 and Essential hypertension I10 [facility] [address] [facility] [id number] [address] [place] [address] Mar, [facility] [address] [facility] [id number] [address] [place] [address] Mar, Dysuria R30.0 [facility] [address] [id number] [address] [place] [address] December, [facility] [address] [id number] [address] [place] [phone] Nov, [facility] [address] [facility] [id number] [address] [place] [address] Nov, Dental examination Z01.20 [facility] [address] [facility] [id number] [address] [place] [address] Nov, Dental examination Z01.20 [place] [address] [facility] [id number] [address] [place] [address] Nov, Non-intractable vomiting wit h nausea, unspecified vomiting type R11.2 ; Arthralgia, unspecified joint M25.50 ; Fever, unspecified fever cause R50.9 ; Type 2 diabetes mellitus without complications E11.9 and Tooth pain K08.89 [place] [address] [facility] [id number] [address] [place] [id number] Nov, Type 2 diabetes mellitus wit hout complications E11.9 [place] [address] [facility] [id number] [address] [place] [address] Nov, Type 2 diabetes mellitus wit hout complications E11.9 and Bronchitis J40 [place] [address] [facility] [id number] [address] [place] [address] Oct, Type 2 diabetes mellitus wit hout complications E11.9 [place] [id number] [place] [address] Jul, [place] [address] [place] [id number] [address] [place] [id number] Jul, Dysuria R30.0 ; Hematuria R3 1.9 and Vaginal pain R10.2 [place] [address] [place] [id number] [address] [place] [address] Jul, Dysuria R30.0 ; Vaginal disc harge N89.8 and Low back strain, initial encounter S39.012A [place] [address] [facility] [id number] [address] [place] [address] Jun, Bacterial conjunctivitis of right eye H10.9 ; Sore throat J02.9 and Acute non-recurrent maxillary sinusitis J01.00 [place] [address] [facility] [id number] [address] [place] [address] Jun, [place] [address] [facility] [id number] [address] [place] [address] May, [facility] [address] [id number] [address] [place] [phone] 27 Apr, 2016 [facility] [address] [id number] [address] [place] [phone] 14 Apr, 2016 [facility] [address] [id number] [address] [place] [phone] Apr, [facility] [address] [id number] [address] [place] [phone] Apr, Type 2 diabetes mellitus wit hout complications E11.9 [facility] [address] [id number] [address] [place] [phone] Mar, [facility] [address] [id number] [address] [place] [phone] Feb, Bronchitis J40 [facility] [address] [id number] [address] [place] [phone] Feb, Bronchitis J40 [facility] [address] [id number] [address] [place] [phone] Feb, Type 2 diabetes mellitus wit hout complications E11.9 [facility] [address] [id number] [address] [place] [phone] Feb, [facility] [address] [id number] [address] [place] [phone] Feb, [facility] [address] [id number] [address] [place] [address] Feb, Type 2 diabetes mellitus wit hout complications E11.9 and Dysuria R30.0 [facility] [address] [id number] [address] [place] [address] Jan, Type 2 diabetes mellitus wit hout complications E11.9 [facility] [address] [id number] [address] [place] [id number] 14 Jan, 2016 Type 2 diabetes mellitus wit hout complications E11.9 [facility] [address] [id number] [address] [place] [phone] December, Type 2 diabetes mellitus wit hout complications E11.9 [facility] [id number] [place] [address] Nov, Type 2 diabetes mellitus wit hout complications E11.9 [facility] [address] [place] [id number] [address] [place] [address] Oct, Type 2 diabetes mellitus wit hout complications E11.9 ; Fever R50.9 ; Myalgia M79.1 and Cough R05 [facility] [address] [place] [id number] [place] [phone] 15 Sep, 2015 Dysuria R30.0 and Cystitis N 30.90 [facility] [address] [place] [id number] [address] [place] [phone] Sep, [facility] [address] [address] Sep, [facility] [address] [place] [id number] [address] [place] [id number] Aug, Dental examination Z01.20 [facility] [address] [place] [id number] [address] [place] [address] Aug, Type 2 diabetes mellitus wit hout complications E11.9 [facility] [id number] [place] [address] Jul, Dysfunction of left eustachi an tube H69.82 [facility] [id number] [place] [address] Jun, [facility] [address] [place] [id number] [address] [place] [address] Jun, Cellulitis L03.90 [facility] [address] [place] [id number] [address] [place] [phone] Jun, [facility] [id number] [place] [phone] Jun, [place] [address] [facility] [id number] [address] [place] [phone] Jun, [facility] [address] [facility] [id number] [address] [place] [address] May, Dermatofibroma of ankle, rig ht D23.71 [place] [address] [place] [id number] [address] [place] [phone] May, [place] [address] [facility] [id number] [address] [place] [address] Apr, Diabetes 250.00 and 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 [place] [address] [place] [id number] [address] [place] [phone] Apr, [place] [address] [place] [id number] [address] [place] [phone] Apr, [place] [address] [place] [id number] [address] [place] [phone] Apr, Diabetes 250.00 ; Influenza vaccine administered V04.81 and Allergic rhinitis 477.9 [place] [address] [facility] [id number] [address] [place] [id number] Mar, [place] [address] [place] [id number] [address] [place] [phone] Jan, [place] [address] [place] [id number] [address] [place] [phone] Jan, DM w/o complication type II 250.00 [place] [address] [facility] [id number] [address] [place] [address] December, DM w/o complication type II 250.00 ; Calcaneal spur 726.73 ; Vaginitis due to Amanda 112.1 and Onychomycosis 110.1 [place] [address] [facility] [id number] [address] [place] [phone] Nov, Amanda infection of genital region 112.2 [place] [address] [facility] [id number] [address] [place] [phone] 14 Nov, 2014 [facility] [address] [id number] [address] [place] [address], [place] [address] 13 Nov, 2014 [facility] [address] [id number] [address] [place] [address], [place] [address] 10 Oct, 2014 [facility] [address] [id number] [address] [place] [address], [place] [address] Oct, [facility] [address] [id number] [address] [place] [address], [place] [address] 24 Sep, 2014 [facility] [address] [id number] [address] [place] [address], [place] [address] Sep, [facility] [address] [id number] [address] [place] [address], [place] [address] Jul, [facility] [address] [id number] [address] [place] [address], [place] [address] Jul, [facility] [address] [id number] [address] [place] [address], [place] [address] Jun, [facility] [address] [id number] [address] [place] [address], [place] [address] Jun, [facility] [address] [id number] [address] [place] [address], [place] [address] Jun, [facility] [address] [id number] [address] [place] [address], [place] [address] Jun, [facility] [address] [id number] [address] [place] [address], [place] [address] May, [facility] [address] [id number] [address] [place] [address], [place] [address] May, [facility] [address] [id number] [address] [place] [address], [place] [address] May, [facility] [address] [id number] [address] [place] [address], [place] [address] May, [facility] [address] [id number] [facility] [place] [address] Apr, 2013 [facility] [address] [id number] [facility] [place] [address] Apr, [facility] [address] [id number] [facility] [place] [address] Apr, [facility] [address] [id number] [address] [place] [address], [place] [address] Apr, [facility] [address] [id number] [address] [place] [address], [place] [address] Mar, [facility] [address] [id number] [address] [place] [address], [place] [address] Mar, [facility] [address] [id number] [address] [place] [address], [place] [address] Mar, [facility] [address] [id number] [address] [place] [address], [place] [address] Mar, [facility] [address] [id number] [address] [place] [address], [place] [address] Mar, [facility] [address] [id number] [address] [place] [address], [place] [address] Mar, [facility] [address] [id number] [address] [place] [address], [place] [address] Mar, [facility] [address] [id number] [address] [place] [address], [place] [address] Mar, [facility] [address] [id number] [address] [place] [address], [place] [address] Mar, [facility] [address] [id number] [address] [place] [address], [place] [address] Mar, [facility] [address] [id number] [address] [place] [address], [place] [address] Mar, [facility] [address] [id number] [address] [place] [address], [place] [address] Mar, [facility] [address] [id number] [facility] [place] [address] Feb, [facility] [address] [id number] [address] [place] [address], [place] [address] Feb, [facility] [address] [id number] [address] [place] [address], [place] [address] Jan, [facility] [address] [id number] [address] [place] [address], [place] [address] Jan, [facility] [address] [id number] [address] [place] [address], [place] [address] Jan, [facility] [address] [id number] [address] [place] [address], [place] [address] Jan, [facility] [address] [id number] [address] [place] [address], [place] [address] December, [facility] [address] [id number] [address] [place] [address], [place] [address] December, [facility] [address] [id number] [address] [place] [address], [place] [address] December, [facility] [address] [id number] [address] [place] [address], [place] [address] December, [facility] [address] [id number] [address] [place] [address], [place] [address] Nov, [facility] [address] [id number] [address] [place] [address], [place] [address] Nov, [facility] [address] [id number] [address] [place] [address], [place] [address] Nov, [facility] [address] [id number] [address] [place] [address], [place] [address] Nov, [facility] [address] [id number] [address] [place] [address], [place] [address] Nov, [facility] [address] [id number] [address] [place] [address] Nov, [facility] [address] [id number] [address] [place] [address], [place] [address] Nov, [facility] [address] [id number] [address] [place] [address], [place] [address] Oct, [facility] [address] [id number] [address] [place] [address], [place] [address] Oct, [facility] [address] [id number] [address] [place] [address], [place] [address] Oct, [facility] [address] [id number] [address] [place] [address], [place] [address] Oct, [facility] [address] [id number] [address] [place] [address], [place] [address] Oct, [facility] [address] [id number] [address] [place] [address], [place] [address] Oct, [facility] [address] [id number] [address] [place] [address], [place] [address] Oct, [facility] [address] [id number] [address] [place] [address], [place] [address] 07 Sep, 2013 [facility] [address] [id number] [address] [place] [address], [place] [address] 07 Sep, 2013 [facility] [address] [id number] [address] [place] [address], [place] [address] Sep, [facility] [address] [id number] [address] [place] [address], [place] [address] Sep, [facility] [address] [id number] [address] [place] [address], [place] [address] Aug, [facility] [address] [id number] [address] [place] [address], [place] [address] Aug, [facility] [address] [id number] [address] [place] [address], [place] [address] Aug, [facility] [address] [id number] [address] [place] [address], [place] [address] Aug, [facility] [address] [id number] [address] [place] [address], [place] [address] Jul, [facility] [address] [id number] [address] [place] [address], [place] [address] Jul, [facility] [address] [id number] [address] [place] [address], [place] [address] Apr, [facility] [address] [id number] [address] [place] [address], [place] [address] Apr, [facility] [address] [id number] [address] [place] [address], [place] [address] Mar, [facility] [address] [id number] [address] [place] [address], [place] [address] Mar, [facility] [address] [id number] [address] [place] [address], [place] [address] Mar, [facility] [address] [id number] [address] [place] [address], [place] [address] Mar, [facility] [address] [id number] [address] [place] [address], [place] [address] Mar, [facility] [address] [id number] [address] [place] [address], [place] [address] Mar, [facility] [address] [id number] [address] [place] [address], [place] [address] Mar, [facility] [address] [id number] [address] [place] [address], [place] [address] Mar, [facility] [address] [id number] [address] [place] [address], [place] [address] Mar, [facility] [address] [id number] [address] [place] [address], [place] [address] Mar, [facility] [address] [id number] [address] [place] [address], [place] [address] 31 Feb, 2013 [facility] [address] [id number] [address] [place] [address], [place] [address] 26 Feb, 2013 [facility] [address] [id number] [address] [place] [address], [place] [address] 18 Feb, 2013 [facility] [address] [id number] [address] [place] [address], [place] [address] 08 Feb, 2013 [facility] [address] [id number] [address] [place] [address], [place] [address] Jan, [facility] [address] [id number] [address] [place] [address], [place] [address] 25 Nov, 2012 [facility] [address] [id number] [address] [place] [address], [place] [address] 16 Nov, 2012 [facility] [address] [id number] [address] [place] [address], [place] [address] 15 Nov, 2012 [facility] [address] [id number] [address] [place] [address], [place] [address] Nov, [facility] [address] [id number] [address] [place] [address], [place] [address] Oct, [facility] [address] [id number] [address] [place] [address], [place] [address] Sep, [facility] [address] [id number] [address] [place] [address], [place] [address] Sep, [facility] [address] [id number] [address] [place] [address], [place] [address] Aug, [facility] [address] [id number] [address] [place] [address], [place] [address] Jul, [facility] [address] [id number] [address] [place] [address], [place] [address] Jul, [facility] [address] [id number] [address] [place] [address], [place] [address] May, [facility] [address] [id number] [address] [place] [address], [place] [address] May, [facility] [address] [id number] [address] [place] [address], [place] [address] May, [facility] [address] [id number] [address] [place] [address], [place] [address] May, [facility] [address] [id number] [address] [place] [address], [place] [address] Apr, [facility] [address] [id number] [address] [place] [address], [place] [address] Mar, [facility] [address] [id number] [address] [place] [address], [place] [address] Mar, [facility] [address] [id number] [address] [place] [address], [place] [address] Mar, [facility] [address] [id number] [address] [place] [address], [place] [address] Mar, [facility] [address] [id number] [address] [place] [address], [place] [address] Mar, [facility] [address] [id number] [address] [place] [address], [place] [address] Mar, [facility] [address] [id number] [address] [place] [address], [place] [address] Mar, [facility] [address] [id number] [address] [place] [address], [place] [address] Mar, [facility] [address] [id number] [address] [place] [address], [place] [address] Feb, [facility] [address] [id number] [address] [place] [address], [place] [address] Feb, [facility] [address] [id number] [address] [place] [address], [place] [address] Jan, [facility] [address] [id number] [address] [address] December, [facility] [address] [id number] [address] [place] [address], [place] [address] December, [facility] [address] [id number] [address] [place] [address], [place] [address] 23 Nov, 2011 [facility] [address] [id number] [address] [place] [address], [place] [address] 19 Nov, 2011 [facility] [address] [id number] [address] [place] [address], [place] [address] 18 Nov, 2011 [facility] [address] [id number] [address] [place] [address], [place] [address] Nov, [facility] [address] [id number] [address] [place] [address], [place] [address] 08 Oct, 2011 [facility] [address] [id number] [address] [place] [address], [place] [address] 29 Sep, 2011 [facility] [address] [id number] [address] [place] [address], [place] [address] 21 Sep, 2011 [facility] [address] [id number] [address] [place] [address], [place] [address] 17 Sep, 2011 [facility] [address] [id number] [address] [place] [address], [place] [address] 17 Sep, 2011 [facility] [address] [id number] [address] [place] [address], [place] [address] 16 Sep, 2011 [facility] [address] [id number] [address] [place] [address] 16 Sep, 2011 [facility] [address] [id number] [address] [place] [address], [place] [address] 15 Sep, 2011 [facility] [address] [id number] [address] [place] [address], [place] [address] 15 Sep, 2011 [facility] [address] [id number] [address] [place] [id number] 05 Aug, 2011 [facility] [address] [id number] [address] [place] [address], [place] [address] 29 Jul, 2011 [facility] [address] [id number] [address] [place] [address], [place] [address] 14 Jul, 2011 [facility] [address] [id number] [address] [place] [address], [place] [address] 14 Jul, 2011 [facility] [address] [id number] [address] [place] [address], [place] [address] 08 Jun, 2011 [facility] [address] [id number] [address] [place] [address], [place] [address] Jul, [facility] [address] [id number] [address] [place] [address], [place] [address] Jul, [facility] [address] [id number] [address] [place] [address], [place] [address] 16 Jul, 2010 [facility] [address] [id number] [address] [place] [address], [place] [address] Jul, [facility] [address] [id number] [address] [place] [address], [place] [address] Jul, [facility] [address] [id number] [address] [place] [address], [place] [address] May, [facility] [address] [id number] [address] [place] [address], [place] [address] May, [facility] [address] [id number] [address] [place] [address], [place] [address] May, [facility] [address] [id number] [address] [place] [address], [place] [address] 15 Apr, 2010 [facility] [address] [id number] [address] [place] [address], [place] [address] 13 Jun, 2009 [facility] [address] [id number] [address] [place] [address], [place] [address] 13 Jun, 2009 [facility] [address] [id number] [address] [place] [address], [place] [address] May, [facility] [address] [facility] [id number] [address] [place] [address] Jan, IMMUNIZATIONS No Known Immunizations SOCIAL HISTORY Never Assessed REASON FOR VISIT PLAN OF CARE VITAL SIGNS Height 63 in 2014-07-04 Weight 198.5 lbs 2014-07-04 Temperature 97.6 degrees Fahrenheit 2014-07-04 Heart Rate 72 bpm 2014-07-04 Respiratory Rate 18 2014-07-04 Blood pressure systolic 118 mmHg 2014-07-04 Blood pressure diastolic 64 mmHg 2014-07-04 MEDICATIONS Unknown Medications RESULTS No Results PROCEDURES [...]
--- OUTSIDE RECORDS SUMMARY | 2019-11-01 20:27 | XMS REPORT ---
Author Author Nyasia RUIZ Organization [facility] Address [address] [place] [address] Care Team Providers Care Yarn Weight And Strength Tester Name Role Phone IRVIN RUIZ Unavailable PROBLEMS Type Condition ICD9-CM Code [id number] Code Onset Dates Condition S tatus SNOMED Code Problem Costochondritis 733.6 Active 6410 9004 Problem Grief reaction F43.21 Active 11928 5009 Problem Hyperlipidemia E78.5 Active 89530 004 Problem Unspecified cardiac dysrhythmia 427.9 Active 558766602 Problem Diabetes 250.00 Active 93386766 Problem Type 2 diabetes mellitus without complications E11 .9 Active 57032050 Problem Essential hypertension I10 Active 84002448 ALLERGIES No Information ENCOUNTERS Encounter Location Date Diagnosis [place] [address] [place] [id number] [place] [address] December, Insect bite (nonvenomous), l eft thigh, initial encounter S70.362A ; Local infection of the skin and subcutaneous tissue, unspecified L08.9 and Bitten or stung by nonvenomous insect and other nonvenomous arthropods, initial encounter W57.XXXA [place] [address] [place] [id number] [place] [phone] December, [place] [address] [place] [id number] [place] [phone] Nov, [place] [address] [address] Nov, [place] [address] [place] [id number] [place] [phone] Oct, URI (upper respiratory infec tion) J06.9 ; Type 2 diabetes mellitus without complications E11.9 and Hyperlipidemia E78.5 [facility] [address] [facility] [id number] [address] [place] [phone] 08 Aug, 2018 [facility] [address] [facility] [id number] [address] [place] [phone] Jun, Acute nasopharyngitis J00 [facility] [address] [facility] [id number] [address] [place] [phone] 23 May, 2018 Encounter for immunization Z 23 [facility] [address] [facility] [id number] [address] [place] [phone] 20 Apr, 2018 [facility] [address] [facility] [id number] [address] [place] [phone] Apr, Type 2 diabetes mellitus wit hout complications E11.9 [facility] [address] [facility] [id number] [address] [place] [phone] Apr, Type 2 diabetes mellitus wit hout complications E11.9 ; Grief reaction F43.21 and Essential hypertension I10 [facility] [address] [facility] [id number] [address] [place] [phone] Mar, Type 2 diabetes mellitus wit hout complications E11.9 [facility] [address] [facility] [id number] [address] [place] [phone] Mar, Type 2 diabetes mellitus wit hout complications E11.9 [facility] [address] [facility] [id number] [address] [place] [phone] Feb, [facility] [address] [facility] [id number] [address] [place] [phone] Jan, [facility] [address] [facility] [id number] [address] [place] [phone] Nov, Type 2 diabetes mellitus wit hout complications E11.9 [facility] [address] [facility] [id number] [address] [place] [phone] Oct, [facility] [address] [facility] [id number] [address] [place] [address] Oct, Labia irritation N90.89 [facility] [address] [id number] [address] [place] [phone] Sep, [facility] [address] [id number] [address] [place] [phone] Sep, [facility] [address] [id number] [address] [place] [phone] Sep, [facility] [address] [id number] [address] [place] [phone] Aug, [facility] [address] [id number] [address] [place] [phone] Jul, [facility] [address] [id number] [address] [place] [phone] Jul, [facility] [address] [facility] [id number] [address] [place] [id number] Mar, Type 2 diabetes mellitus wit hout complications E11.9 ; Acute pain of right knee M25.561 and Essential hypertension I10 [facility] [address] [facility] [id number] [address] [place] [phone] Mar, [facility] [address] [facility] [id number] [address] [place] [phone] Mar, Dysuria R30.0 [facility] [address] [facility] [id number] [address] [place] [address] December, [facility] [address] [facility] [id number] [address] [place] [address] Nov, [facility] [address] [facility] [id number] [address] [place] [address] Nov, Dental examination Z01.20 [facility] [address] [facility] [id number] [address] [place] [id number] Nov, Dental examination Z01.20 [facility] [address] [facility] [id number] [address] [place] [address] Nov, Non-intractable vomiting wit h nausea, unspecified vomiting type R11.2 ; Arthralgia, unspecified joint M25.50 ; Fever, unspecified fever cause R50.9 ; Type 2 diabetes mellitus without complications E11.9 and Tooth pain K08.89 [facility] [address] [id number] [address] [place] [address] Nov, Type 2 diabetes mellitus wit hout complications E11.9 [place] [address] [id number] [address] [place] [address] Nov, Type 2 diabetes mellitus wit hout complications E11.9 and Bronchitis J40 [place] [address] [id number] [address] [place] [address] Oct, Type 2 diabetes mellitus wit hout complications E11.9 [place] [address] [id number] [address] [place] [phone] Jul, [place] [address] [facility] [id number] [address] [place] [phone] Jul, Dysuria R30.0 ; Hematuria R3 1.9 and Vaginal pain R10.2 [place] [address] [facility] [id number] [address] [place] [phone] Jul, Dysuria R30.0 ; Vaginal disc harge N89.8 and Low back strain, initial encounter S39.012A [place] [address] [facility] [id number] [address] [place] [phone] Jun, Bacterial conjunctivitis of right eye H10.9 ; Sore throat J02.9 and Acute non-recurrent maxillary sinusitis J01.00 [place] [address] [id number] [address] [place] [phone] Jun, [place] [address] [facility] [id number] [address] [place] [phone] May, [place] [address] [facility] [id number] [address] [place] [phone] Apr, [place] [address] [id number] [address] [place] [phone] 14 Apr, 2016 [facility] [address] [id number] [address] [place] [address] Apr, [facility] [address] [id number] [address] [place] [phone] Apr, Type 2 diabetes mellitus wit hout complications E11.9 [facility] [address] [id number] [address] [place] [phone] Mar, [facility] [address] [id number] [address] [place] [phone] Feb, Bronchitis J40 [facility] [address] [id number] [address] [place] [address] Feb, Bronchitis J40 [facility] [address] [id number] [address] [place] [phone] Feb, Type 2 diabetes mellitus wit hout complications E11.9 [facility] [address] [id number] [address] [place] [phone] Feb, [facility] [address] [id number] [address] [place] [phone] Feb, [facility] [address] [id number] [address] [place] [phone] Feb, Type 2 diabetes mellitus wit hout complications E11.9 and Dysuria R30.0 [facility] [address] [id number] [address] [place] [address] Jan, Type 2 diabetes mellitus wit hout complications E11.9 [facility] [address] [id number] [address] [place] [id number] 14 Jan, 2016 Type 2 diabetes mellitus wit hout complications E11.9 [facility] [address] [id number] [address] [place] [phone] December, Type 2 diabetes mellitus wit hout complications E11.9 [facility] [address] [id number] [address] [place] [address] Nov, Type 2 diabetes mellitus wit hout complications E11.9 [facility] [address] [address] Oct, Type 2 diabetes mellitus wit hout complications E11.9 ; Fever R50.9 ; Myalgia M79.1 and Cough R05 [facility] [address] [place] [id number] [place] [address] Sep, Dysuria R30.0 and Cystitis N 30.90 [facility] [address] [place] [id number] [address] [place] [phone] Sep, [facility] [address] [address] Sep, [facility] [address] [place] [id number] [address] [place] [id number] Aug, Dental examination Z01.20 [facility] [address] [place] [id number] [place] [address] Aug, Type 2 diabetes mellitus wit hout complications E11.9 [facility] [address] [address] Jul, Dysfunction of left eustachi an tube H69.82 [facility] [address] [place] [id number] [place] [address] Jun, [facility] [address] [place] [id number] [place] [address] Jun, Cellulitis L03.90 [facility] [address] [place] [id number] [address] [place] [address] Jun, [facility] [address] [address] Jun, [facility] [address] [place] [id number] [place] [phone] Jun, [facility] [address] [address] May, Dermatofibroma of ankle, rig ht D23.71 [place] [address] [phone] May, [place] [address] [place] [id number] [place] [phone] 29 Apr, 2015 Diabetes 250.00 and 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 [place] [address] [address] Apr, [place] [address] [phone] Apr, [place] [address] [address] 15 Apr, 2015 Diabetes 250.00 ; Influenza vaccine administered V04.81 and Allergic rhinitis 477.9 [place] [address] [id number] Mar, [place] [address] [address] Jan, [place] [address] [address] Jan, DM w/o complication type II 250.[address] [address] December, DM w/o complication type II 250.00 ; Calcaneal spur 726.73 ; Vaginitis due to Amanda 112.1 and Onychomycosis 110.1 [place] [address] [address] 30 Nov, 2014 Amanda infection of genital region 112.2 [place] [address] [phone] 14 Nov, 2014 [place] [address] [address] Nov, [facility] [address] [id number] [address] [place] [address], [place] [address] Oct, [facility] [address] [id number] [address] [place] [address], [place] [address] Oct, [facility] [address] [id number] [address] [place] [address], [place] [address] Sep, [facility] [address] [id number] [address] [place] [address], [place] [address] Sep, [facility] [address] [id number] [address] [place] [address], [place] [address] Jul, [facility] [address] [id number] [address] [place] [address], [place] [address] Jul, [facility] [address] [id number] [address] [place] [address], [place] [address] Jun, [facility] [address] [id number] [address] [place] [address], [place] [address] Jun, [facility] [address] [id number] [address] [place] [address], [place] [address] Jun, [facility] [address] [id number] [address] [place] [address], [place] [address] Jun, [facility] [address] [id number] [address] [place] [address], [place] [address] May, [facility] [address] [id number] [address] [place] [phone] May, [facility] [address] [id number] [address] [place] [address], [place] [address] May, [facility] [address] [id number] [address] [place] [address], [place] [address] May, [facility] [address] [id number] [address] [place] [address], [place] [address] Apr, [facility] [address] [id number] [address] [place] [address], [place] [address] Apr, [facility] [address] [id number] [address] [place] [address], [place] [address] Apr, [facility] [address] [id number] [address] [place] [address], [place] [address] Apr, [facility] [address] [id number] [address] [place] [address], [place] [address] Mar, [facility] [address] [id number] [address] [place] [address], [place] [address] Mar, [facility] [address] [id number] [address] [place] [address], [place] [address] Mar, [facility] [address] [id number] [address] [place] [address], [place] [address] Mar, [facility] [address] [id number] [address] [place] [address], [place] [address] Mar, [facility] [address] [id number] [address] [place] [address], [place] [address] Mar, [facility] [address] [id number] [address] [place] [address], [place] [address] Mar, [facility] [address] [id number] [address] [place] [address], [place] [address] Mar, [facility] [address] [id number] [address] [place] [address], [place] [address] Mar, [facility] [address] [id number] [address] [place] [address], [place] [address] Mar, [facility] [address] [id number] [address] [place] [address], [place] [address] Mar, [facility] [address] [id number] [address] [place] [address], [place] [address] Mar, [facility] [address] [id number] [address] [place] [address], [place] [address] Feb, [facility] [address] [id number] [address] [place] [address], [place] [address] Feb, [facility] [address] [id number] [facility] [place] [address] Jan, [facility] [address] [id number] [address] [place] [address], [place] [address] Jan, [facility] [address] [id number] [address] [place] [address], [place] [address] Jan, [facility] [address] [id number] [address] [place] [address], [place] [address] Jan, [facility] [address] [id number] [address] [place] [address], [place] [address] December, [facility] [address] [id number] [address] [place] [address], [place] [address] December, [facility] [address] [id number] [address] [place] [address], [place] [address] December, [facility] [address] [id number] [address] [place] [address], [place] [address] December, [facility] [address] [id number] [address] [place] [address], [place] [address] Nov, [facility] [address] [id number] [address] [place] [address], [place] [address] Nov, [facility] [address] [id number] [address] [place] [address], [place] [address] Nov, [facility] [address] [id number] [address] [place] [address], [place] [address] Nov, [facility] [address] [id number] [address] [place] [address], [place] [address] Nov, [facility] [address] [id number] [address] [place] [address], [place] [address] Nov, [facility] [address] [id number] [address] [place] [address], [place] [address] Nov, [facility] [address] [id number] [address] [place] [address], [place] [address] Oct, [facility] [address] [id number] [address] [place] [address], [place] [address] Oct, [facility] [address] [id number] [address] [place] [address], [place] [address] Oct, [facility] [address] [id number] [address] [place] [address], [place] [address] Oct, [facility] [address] [id number] [address] [place] [address], [place] [address] Oct, [facility] [address] [id number] [address] [place] [address], [place] [address] Oct, [facility] [address] [id number] [address] [place] [address], [place] [address] Oct, [facility] [address] [id number] [address] [place] [address], [place] [address] 07 Sep, 2013 [facility] [address] [id number] [address] [place] [address], [place] [address] 07 Sep, 2013 [facility] [address] [id number] [address] [place] [address], [place] [address] Sep, [facility] [address] [id number] [address] [place] [address], [place] [address] Sep, [facility] [address] [id number] [address] [place] [address], [place] [address] Aug, [facility] [address] [id number] [address] [place] [address], [place] [address] Aug, [facility] [address] [id number] [address] [place] [address], [place] [address] Aug, [facility] [address] [id number] [address] [place] [address], [place] [address] Aug, [facility] [address] [id number] [address] [place] [address], [place] [address] 16 Jul, 2013 [facility] [address] [id number] [address] [place] [address], [place] [address] Jul, [facility] [address] [id number] [address] [place] [address], [place] [address] Apr, [facility] [address] [id number] [address] [place] [address], [place] [address] Apr, [facility] [address] [id number] [address] [place] [address], [place] [address] Mar, [facility] [address] [id number] [address] [place] [address], [place] [address] Mar, [facility] [address] [id number] [address] [place] [address], [place] [address] Mar, [facility] [address] [id number] [address] [place] [address], [place] [address] Mar, [facility] [address] [id number] [address] [place] [address], [place] [address] Mar, [facility] [address] [id number] [address] [place] [address], [place] [address] Mar, [facility] [address] [id number] [address] [place] [address], [place] [address] Mar, [facility] [address] [id number] [address] [place] [address], [place] [address] Mar, [facility] [address] [id number] [address] [place] [address], [place] [address] Mar, [facility] [address] [id number] [address] [place] [address], [place] [address] Mar, [facility] [address] [id number] [address] [place] [address], [place] [address] Feb, [facility] [address] [id number] [address] [place] [address], [place] [address] Feb, [facility] [address] [id number] [address] [place] [address], [place] [address] 18 Feb, 2013 [facility] [address] [id number] [address] [place] [address], [place] [id number] 08 Feb, 2013 [facility] [address] [id number] [address] [place] [address], [place] [address] Jan, [facility] [address] [id number] [address] [place] [address], [place] [address] 25 Nov, 2012 [facility] [address] [id number] [address] [place] [address], [place] [address] 16 Nov, 2012 [facility] [address] [id number] [address] [place] [address], [place] [address] 15 Nov, 2012 [facility] [address] [id number] [address] [place] [address], [place] [address] Nov, [facility] [address] [id number] [address] [place] [address], [place] [address] Oct, [facility] [address] [id number] [address] [place] [address], [place] [address] Sep, [facility] [address] [id number] [address] [place] [address], [place] [address] Sep, [facility] [address] [id number] [address] [place] [address], [place] [address] Aug, [facility] [address] [id number] [address] [place] [address], [place] [address] Jul, [facility] [address] [id number] [address] [place] [address], [place] [address] Jul, [facility] [address] [id number] [address] [place] [address], [place] [address] May, [facility] [address] [id number] [address] [place] [address], [place] [address] May, [facility] [address] [id number] [address] [place] [address], [place] [address] May, [facility] [address] [id number] [address] [place] [address], [place] [address] May, [facility] [address] [id number] [address] [place] [address], [place] [address] Apr, [facility] [address] [id number] [address] [place] [address], [place] [address] Mar, [facility] [address] [id number] [address] [place] [address], [place] [address] Mar, [facility] [address] [id number] [address] [place] [address], [place] [address] Mar, [facility] [address] [id number] [address] [place] [address], [place] [address] Mar, [facility] [address] [id number] [address] [place] [address], [place] [address] Mar, [facility] [address] [id number] [address] [place] [address], [place] [address] Mar, [facility] [address] [id number] [address] [place] [address], [place] [address] Mar, [facility] [address] [id number] [address] [place] [address], [place] [address] Mar, [facility] [address] [id number] [address] [place] [address], [place] [address] Feb, [facility] [address] [id number] [address] [place] [address], [place] [address] Feb, [facility] [address] [id number] [address] [place] [address], [place] [id number] Jan, [facility] [address] [id number] [address] [place] [address], [place] [address] December, [facility] [address] [id number] [address] [place] [address], [place] [address] December, [facility] [address] [id number] [address] [place] [address], [place] [id number] 23 Nov, 2011 [facility] [address] [id number] [address] [place] [address], [place] [address] Nov, [facility] [address] [id number] [address] [place] [address], [place] [id number] 18 Nov, 2011 [facility] [address] [id number] [address] [place] [address], [place] [address] Nov, [facility] [address] [id number] [address] [place] [address], [place] [id number] 08 Oct, 2011 [facility] [address] [id number] [address] [place] [address], [place] [phone] 29 Sep, 2011 [facility] [address] [id number] [address] [place] [address], [place] [id number] 21 Sep, 2011 [facility] [address] [id number] [address] [place] [address], [place] [id number] 17 Sep, 2011 [facility] [address] [id number] [address] [place] [address], [place] [address] 17 Sep, 2011 [facility] [address] [id number] [address] [place] [address], [place] [id number] 16 Sep, 2011 [facility] [address] [id number] [address] [place] [address], [place] [id number] 16 Sep, 2011 [facility] [address] [id number] [address] [place] [address], [place] [id number] 15 Sep, 2011 [facility] [address] [id number] [address] [place] [address], [place] [id number] 15 Sep, 2011 [facility] [address] [id number] [address] [place] [address], [place] [address] Aug, [facility] [address] [id number] [address] [place] [address], [place] [address] Jul, [facility] [address] [id number] [address] [place] [address], [place] [address] 14 Jul, 2011 [facility] [place] [address] [id number] [address] [place] [address], [place] [id number] 14 Jul, 2011 [facility] [place] [address] [id number] [address] [place] [address], [place] [id number] [address] Jun, [address] [facility] [address] [id number] [address] [place] [address], [place] [id number] 21 Jul, 2010 [facility] [place] [address] [id number] [address] [place] [address], [place] [id number] 21 Jul, 2010 [facility] [place] [address] [id number] [address] [place] [address], [place] [id number] [address], [address] [facility] [address] [id number] [address] [place] [address], [place] [id number] [address] Jul, [address] [facility] [address] [id number] [address] [place] [address], [place] [address] Jul, [facility] [address] [id number] [address] [place] [address], [place] [id number] [address], [address] [facility] [address] [id number] [address] [place] [address], [place] [address] May, [facility] [address] [id number] [address] [place] [id number] May, [facility] [address] [id number] [address] [place] [address], [place] [address] [address], [address] [facility] [address] [id number] [address] [place] [id number] 13 Jun, 2009 [facility] [place] [address] [id number] [address] [place] [id number] [address], [address] [facility] [address] [id number] [address] [place] [id number] 27 May, 2009 [facility] [address] [id number] [address] [place] [id number] 16 Jan, 2009 IMMUNIZATIONS No Known Immunizations [...] History tumor removal left leg Hospitalization History [facility] 03/2012
--- OUTSIDE RECORDS SUMMARY | 2019-11-01 20:27 | XMS REPORT ---
Author Author Nyasia Johnson Organization [facility] Address [address] [place] [address] Care Team Providers Care [employer] Name Role Phone CANDY Johnson Unavailable PROBLEMS Type Condition ICD9-CM Code [id number] Code Onset Dates Condition S tatus SNOMED Code Problem Costochondritis 733.6 Active 6410 9004 Problem Grief reaction F43.21 Active 21572 5009 Problem Hyperlipidemia E78.5 Active 10135 004 Problem Unspecified cardiac dysrhythmia 427.9 Active 827109363 Problem Diabetes 250.00 Active 99026967 Problem Type 2 diabetes mellitus without complications E11 .9 Active 61888125 Problem Essential hypertension I10 Active [id number] ALLERGIES No Information ENCOUNTERS Encounter Location Date Diagnosis [place] [address] [place] [id number] [address] [place] [address] Mar, Type 2 diabetes mellitus wit hout complications E11.9 [place] [address] [place] [id number] [address] [place] [address] December, Insect bite (nonvenomous), l eft thigh, initial encounter S70.362A ; Local infection of the skin and subcutaneous tissue, unspecified L08.9 and Bitten or stung by nonvenomous insect and other nonvenomous arthropods, initial encounter W57.XXXA [place] [address] [place] [address] December, [place] [address] [address] Nov, [place] [address] [place] [id number] [address] [place] [address] Nov, [place] [address] [place] [id number] [address] [place] [address] Oct, URI (upper respiratory infec tion) J06.9 ; Type 2 diabetes mellitus without complications E11.9 and Hyperlipidemia E78.5 [facility] [address] [facility] [id number] [address] [place] [address] Aug, [facility] [address] [facility] [id number] [address] [place] [address] Jun, Acute nasopharyngitis J00 [facility] [address] [facility] [id number] [address] [place] [address] May, Encounter for immunization Z 23 [facility] [address] [facility] [id number] [address] [place] [address] 20 Apr, 2018 [place] [address] [place] [id number] [address] [place] [address] Apr, Type 2 diabetes mellitus wit hout complications E11.9 [place] [address] [place] [id number] [address] [place] [address] Apr, Type 2 diabetes mellitus wit hout complications E11.9 ; Grief reaction F43.21 and Essential hypertension I10 [facility] [address] [facility] [id number] [address] [place] [address] Mar, Type 2 diabetes mellitus wit hout complications E11.9 [place] [address] [facility] [id number] [address] [place] [address] Mar, Type 2 diabetes mellitus wit hout complications E11.9 [facility] [address] [facility] [id number] [address] [place] [address] Feb, [facility] [address] [facility] [id number] [address] [place] [address] Jan, [facility] [address] [place] [id number] [address] [place] [address] Nov, Type 2 diabetes mellitus wit hout complications E11.9 [facility] [address] [place] [id number] [address] [place] [address] Oct, [facility] [address] [id number] [address] [place] [address] Oct, Labia irritation N90.89 [facility] [address] [id number] [address] [place] [phone] Sep, [facility] [address] [id number] [address] [place] [address] Sep, [facility] [address] [id number] [address] [place] [address] Sep, [facility] [address] [id number] [address] [place] [address] Aug, [facility] [address] [id number] [address] [place] [address] Jul, [facility] [address] [id number] [address] [place] [address] Jul, [facility] [address] [id number] [address] [place] [address] Mar, Type 2 diabetes mellitus wit hout complications E11.9 ; Acute pain of right knee M25.561 and Essential hypertension I10 [facility] [address] [facility] [id number] [address] [place] [address] Mar, [facility] [address] [facility] [id number] [address] [place] [address] Mar, Dysuria R30.0 [facility] [address] [id number] [address] [place] [address] December, [facility] [address] [id number] [address] [place] [address] Nov, [facility] [address] [facility] [id number] [address] [place] [address] Nov, Dental examination Z01.20 [facility] [address] [facility] [id number] [address] [place] [address] Nov, Dental examination Z01.20 [place] [address] [facility] [id number] [address] [place] [address] Nov, Non-intractable vomiting wit h nausea, unspecified vomiting type R11.2 ; Arthralgia, unspecified joint M25.50 ; Fever, unspecified fever cause R50.9 ; Type 2 diabetes mellitus without complications E11.9 and Tooth pain K08.89 [place] [address] [facility] [id number] [address] [place] [address] Nov, Type 2 diabetes mellitus wit hout complications E11.9 [place] [address] [facility] [id number] [address] [place] [address] Nov, Type 2 diabetes mellitus wit hout complications E11.9 and Bronchitis J40 [place] [address] [facility] [id number] [address] [place] [address] Oct, Type 2 diabetes mellitus wit hout complications E11.9 [place] [address] [place] [address] Jul, [place] [address] [place] [id number] [address] [place] [address] Jul, Dysuria R30.0 ; Hematuria R3 1.9 and Vaginal pain R10.2 [place] [address] [place] [id number] [address] [place] [address] Jul, Dysuria R30.0 ; Vaginal disc harge N89.8 and Low back strain, initial encounter S39.012A [place] [address] [facility] [id number] [address] [place] [address] Jun, Bacterial conjunctivitis of right eye H10.9 ; Sore throat J02.9 and Acute non-recurrent maxillary sinusitis J01.00 [place] [address] [facility] [id number] [address] [place] [address] Jun, [place] [address] [facility] [id number] [address] [place] [address] May, [facility] [address] [id number] [address] [place] [address] 27 Apr, 2016 [facility] [address] [id number] [address] [place] [address] 14 Apr, 2016 [facility] [address] [id number] [address] [place] [address] Apr, [facility] [address] [id number] [address] [place] [address] Apr, Type 2 diabetes mellitus wit hout complications E11.9 [facility] [address] [id number] [address] [place] [phone] Mar, [facility] [address] [id number] [address] [place] [address] Feb, Bronchitis J40 [facility] [address] [id number] [address] [place] [address] Feb, Bronchitis J40 [facility] [address] [id number] [address] [place] [phone] Feb, Type 2 diabetes mellitus wit hout complications E11.9 [facility] [address] [id number] [address] [place] [address] Feb, [facility] [address] [id number] [address] [place] [address] Feb, [facility] [address] [id number] [address] [place] [address] Feb, Type 2 diabetes mellitus wit hout complications E11.9 and Dysuria R30.0 [facility] [address] [id number] [address] [place] [phone] Jan, Type 2 diabetes mellitus wit hout complications E11.9 [facility] [address] [id number] [address] [place] [id number] 14 Jan, 2016 Type 2 diabetes mellitus wit hout complications E11.9 [facility] [address] [id number] [address] [place] [phone] December, Type 2 diabetes mellitus wit hout complications E11.9 [facility] [address] [place] [address] Nov, Type 2 diabetes mellitus wit hout complications E11.9 [facility] [address] [place] [id number] [address] [place] [address] Oct, Type 2 diabetes mellitus wit hout complications E11.9 ; Fever R50.9 ; Myalgia M79.1 and Cough R05 [facility] [address] [place] [id number] [address] [place] [address] 15 Sep, 2015 Dysuria R30.0 and Cystitis N 30.90 [facility] [address] [place] [id number] [address] [place] [address] Sep, [facility] [address] [address] Sep, [facility] [address] [place] [id number] [address] [place] [id number] Aug, Dental examination Z01.20 [facility] [address] [place] [id number] [address] [place] [address] Aug, Type 2 diabetes mellitus wit hout complications E11.9 [facility] [address] [place] [address] Jul, Dysfunction of left eustachi an tube H69.82 [facility] [address] [place] [address] Jun, [facility] [address] [place] [id number] [address] [place] [address] Jun, Cellulitis L03.90 [facility] [address] [place] [id number] [address] [place] [address] Jun, [facility] [address] [place] [address] Jun, [place] [address] [facility] [id number] [address] [place] [address] Jun, [facility] [address] [facility] [id number] [address] [place] [phone] May, Dermatofibroma of ankle, rig ht D23.71 [place] [address] [place] [id number] [address] [place] [address] May, [place] [address] [facility] [id number] [address] [place] [address] Apr, Diabetes 250.00 and 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 [place] [address] [place] [id number] [address] [place] [address] Apr, [place] [address] [place] [id number] [address] [place] [address] Apr, [place] [address] [place] [id number] [address] [place] [address] Apr, Diabetes 250.00 ; Influenza vaccine administered V04.81 and Allergic rhinitis 477.9 [place] [address] [facility] [id number] [address] [place] [address] Mar, [place] [address] [place] [id number] [address] [place] [address] Jan, [place] [address] [place] [id number] [address] [place] [address] Jan, DM w/o complication type II 250.00 [place] [address] [facility] [id number] [address] [place] [address] December, DM w/o complication type II 250.00 ; Calcaneal spur 726.73 ; Vaginitis due to Amanda 112.1 and Onychomycosis 110.1 [place] [address] [facility] [id number] [address] [place] [phone] Nov, Amanda infection of genital region 112.2 [place] [address] [facility] [id number] [address] [place] [id number] 14 Nov, 2014 [facility] [address] [id number] [address] [place] [address], [place] [address] 13 Nov, 2014 [facility] [address] [id number] [address] [place] [address], [place] [address] 10 Oct, 2014 [facility] [address] [id number] [address] [place] [address], [place] [address] Oct, [facility] [address] [id number] [address] [place] [address], [place] [address] 24 Sep, 2014 [facility] [address] [id number] [address] [place] [address], [place] [address] Sep, [facility] [address] [id number] [address] [place] [address], [place] [address] Jul, [facility] [address] [id number] [address] [place] [address], [place] [address] Jul, [facility] [address] [id number] [address] [place] [address], [place] [address] Jun, [facility] [address] [id number] [address] [place] [address], [place] [address] Jun, [facility] [address] [id number] [address] [place] [address], [place] [address] Jun, [facility] [address] [id number] [address] [place] [address], [place] [address] Jun, [facility] [address] [id number] [address] [place] [address], [place] [address] May, [facility] [address] [id number] [address] [place] [address], [place] [address] May, [facility] [address] [id number] [address] [place] [address], [place] [address] May, [facility] [address] [id number] [address] [place] [address], [place] [address] May, [facility] [address] [id number] [facility] [place] [address] Apr, 2013 [facility] [address] [id number] [facility] [place] [address] Apr, [facility] [address] [id number] [facility] [place] [address] Apr, [facility] [place] [facility] [address] [id number] [address] [place] [address], [place] [address] Apr, [facility] [address] [id number] [address] [place] [address], [place] [address] Mar, [facility] [address] [id number] [address] [place] [address], [place] [address] Mar, [facility] [address] [id number] [address] [place] [address], [place] [address] Mar, [facility] [address] [id number] [address] [place] [address], [place] [address] Mar, [facility] [address] [id number] [address] [place] [address], [place] [address] Mar, [facility] [address] [id number] [address] [place] [address], [place] [address] Mar, [facility] [address] [id number] [address] [place] [address], [place] [address] Mar, [facility] [address] [id number] [address] [place] [address], [place] [address] Mar, [facility] [address] [id number] [address] [place] [address], [place] [address] Mar, [facility] [address] [id number] [address] [place] [address], [place] [address] Mar, [facility] [address] [id number] [address] [place] [address], [place] [address] Mar, [facility] [address] [id number] [address] [place] [address], [place] [address] Mar, [facility] [address] [id number] [facility] [place] [address] Feb, [facility] [address] [id number] [address] [place] [address], [place] [address] Feb, [facility] [address] [id number] [address] [place] [address], [place] [address] Jan, [facility] [address] [id number] [address] [place] [address], [place] [address] Jan, [facility] [address] [id number] [address] [place] [address], [place] [address] Jan, [facility] [address] [id number] [address] [place] [address], [place] [address] Jan, [facility] [address] [id number] [address] [place] [address], [place] [address] December, [facility] [address] [id number] [address] [place] [address], [place] [address] December, [facility] [address] [id number] [address] [place] [address], [place] [address] December, [facility] [address] [id number] [address] [place] [address], [place] [address] December, [facility] [address] [id number] [address] [place] [address], [place] [address] Nov, [facility] [address] [id number] [address] [place] [address], [place] [address] Nov, [facility] [address] [id number] [address] [place] [address], [place] [address] Nov, [facility] [address] [id number] [address] [place] [address], [place] [address] Nov, [facility] [address] [id number] [address] [place] [address], [place] [address] Nov, [facility] [place] [address] [id number] [address] [place] [address] Nov, [facility] [address] [id number] [address] [place] [address], [place] [address] Nov, [facility] [address] [id number] [address] [place] [address], [place] [address] Oct, [facility] [address] [id number] [address] [place] [address], [place] [address] Oct, [facility] [address] [id number] [address] [place] [address], [place] [address] Oct, [facility] [address] [id number] [address] [place] [address], [place] [address] Oct, [facility] [address] [id number] [address] [place] [address], [place] [address] Oct, [facility] [address] [id number] [address] [place] [address], [place] [address] Oct, [facility] [address] [id number] [address] [place] [address], [place] [address] Oct, [facility] [address] [id number] [address] [place] [address], [place] [address] 07 Sep, 2013 [facility] [address] [id number] [address] [place] [address], [place] [address] 07 Sep, 2013 [facility] [address] [id number] [address] [place] [address], [place] [address] Sep, [facility] [address] [id number] [address] [place] [address], [place] [address] Sep, [facility] [address] [id number] [address] [place] [address], [place] [address] Aug, [facility] [address] [id number] [address] [place] [address], [place] [address] Aug, [facility] [address] [id number] [address] [place] [address], [place] [address] Aug, [facility] [address] [id number] [address] [place] [address], [place] [address] Aug, [facility] [address] [id number] [address] [place] [address], [place] [address] Jul, [facility] [address] [id number] [address] [place] [address], [place] [address] Jul, [facility] [address] [id number] [address] [place] [address], [place] [address] Apr, [facility] [address] [id number] [address] [place] [address], [place] [address] Apr, [facility] [address] [id number] [address] [place] [address], [place] [address] Mar, [facility] [address] [id number] [address] [place] [address], [place] [address] Mar, [facility] [address] [id number] [address] [place] [address], [place] [address] Mar, [facility] [address] [id number] [address] [place] [address], [place] [address] Mar, [facility] [address] [id number] [address] [place] [address], [place] [address] Mar, [facility] [address] [id number] [address] [place] [address], [place] [address] Mar, [facility] [address] [id number] [address] [place] [address], [place] [address] Mar, [facility] [address] [id number] [address] [place] [address], [place] [address] Mar, [facility] [address] [id number] [address] [place] [address], [place] [address] Mar, [facility] [address] [id number] [address] [place] [address], [place] [address] Mar, [facility] [address] [id number] [address] [place] [address], [place] [address] 31 Feb, 2013 [facility] [address] [id number] [address] [place] [address], [place] [address] 26 Feb, 2013 [facility] [address] [id number] [address] [place] [address], [place] [address] 18 Feb, 2013 [facility] [address] [id number] [address] [place] [address], [place] [address] 08 Feb, 2013 [facility] [address] [id number] [address] [place] [address], [place] [address] Jan, [facility] [address] [id number] [address] [place] [address], [place] [address] 25 Nov, 2012 [facility] [address] [id number] [address] [place] [address], [place] [address] 16 Nov, 2012 [facility] [address] [id number] [address] [place] [address], [place] [address] 15 Nov, 2012 [facility] [address] [id number] [address] [place] [address], [place] [address] Nov, [facility] [address] [id number] [address] [place] [address], [place] [address] Oct, [facility] [address] [id number] [address] [place] [address], [place] [address] Sep, [facility] [address] [id number] [address] [place] [address], [place] [address] Sep, [facility] [address] [id number] [address] [place] [address], [place] [address] Aug, [facility] [address] [id number] [address] [place] [address], [place] [address] Jul, [facility] [address] [id number] [address] [place] [address], [place] [address] Jul, [facility] [address] [id number] [address] [place] [address], [place] [address] May, [facility] [address] [id number] [address] [place] [address], [place] [address] May, [facility] [address] [id number] [address] [place] [address], [place] [address] May, [facility] [address] [id number] [address] [place] [address], [place] [address] May, [facility] [address] [id number] [address] [place] [address], [place] [address] Apr, [facility] [address] [id number] [address] [place] [address], [place] [address] Mar, [facility] [address] [id number] [address] [place] [address], [place] [address] Mar, [facility] [address] [id number] [address] [place] [address], [place] [address] Mar, [facility] [address] [id number] [address] [place] [address], [place] [address] Mar, [facility] [address] [id number] [address] [place] [address], [place] [address] Mar, [facility] [address] [id number] [address] [place] [address], [place] [address] Mar, [facility] [address] [id number] [address] [place] [address], [place] [address] Mar, [facility] [address] [id number] [address] [place] [address], [place] [address] Mar, [facility] [address] [id number] [address] [place] [address], [place] [address] Feb, [facility] [address] [id number] [address] [place] [address], [place] [address] Feb, [facility] [address] [id number] [address] [place] [address], [place] [address] Jan, [facility] [address] [id number] [address] [address] December, [facility] [address] [id number] [address] [place] [address], [place] [address] December, [facility] [address] [id number] [address] [place] [address], [place] [address] 23 Nov, 2011 [facility] [address] [id number] [address] [place] [address], [place] [address] 19 Nov, 2011 [facility] [address] [id number] [address] [place] [address], [place] [address] 18 Nov, 2011 [facility] [address] [id number] [address] [place] [address], [place] [address] Nov, [facility] [address] [id number] [address] [place] [address], [place] [address] 08 Oct, 2011 [facility] [address] [id number] [address] [place] [address], [place] [address] 29 Sep, 2011 [facility] [address] [id number] [address] [place] [address], [place] [address] 21 Sep, 2011 [facility] [address] [id number] [address] [place] [address], [place] [address] 17 Sep, 2011 [facility] [address] [id number] [address] [place] [address], [place] [address] 17 Sep, 2011 [facility] [address] [id number] [address] [place] [address], [place] [address] 16 Sep, 2011 [facility] [address] [id number] [address] [place] [address] 16 Sep, 2011 [facility] [address] [id number] [address] [place] [address], [place] [address] 15 Sep, 2011 [facility] [address] [id number] [address] [place] [address], [place] [address] 15 Sep, 2011 [facility] [address] [id number] [address] [place] [address] 05 Aug, 2011 [facility] [address] [id number] [address] [place] [address], [place] [address] 29 Jul, 2011 [facility] [address] [id number] [address] [place] [address], [place] [address] 14 Jul, 2011 [facility] [address] [id number] [address] [place] [address], [place] [address] 14 Jul, 2011 [facility] [address] [id number] [address] [place] [address], [place] [address] 08 Jun, 2011 [facility] [address] [id number] [address] [place] [address], [place] [address] Jul, [facility] [address] [id number] [address] [place] [address], [place] [address] Jul, [facility] [address] [id number] [address] [place] [address], [place] [address] 16 Jul, 2010 [facility] [address] [id number] [address] [place] [address], [place] [address] Jul, [facility] [address] [id number] [address] [place] [address], [place] [address] Jul, [facility] [address] [id number] [address] [place] [address], [place] [address] May, [facility] [address] [id number] [address] [place] [address], [place] [address] May, [facility] [address] [id number] [address] [place] [address], [place] [address] May, [facility] [address] [id number] [address] [place] [address], [place] [address] 15 Apr, 2010 [facility] [address] [id number] [address] [place] [address], [place] [address] 13 Jun, 2009 [facility] [address] [id number] [address] [place] [address], [place] [address] 13 Jun, 2009 [facility] [address] [id number] [address] [place] [address], [place] [address] May, [facility] [address] [facility] [id number] [address] [place] [address] Jan, IMMUNIZATIONS No Known Immunizations SOCIAL HISTORY Never Assessed REASON FOR VISIT PLAN OF CARE VITAL SIGNS Height 63 in 2014-03-16 Weight 196.2 lbs 2014-03-16 Temperature 98.6 degrees Fahrenheit 2014-03-16 Heart Rate 76 bpm 2014-03-16 Respiratory Rate 18 2014-03-16 Blood pressure systolic 116 mmHg 2014-03-16 Blood pressure diastolic 72 mmHg 2014-03-16 MEDICATIONS Unknown Medications RESULTS No Results PROCEDURES Procedure Date Ordered Result Body Site MAMMOGRAM, SCREENING Mar 16, 2014 CULTURE, BACTERIA, OTHER Mar 16, 2014 INSTRUCTIONS MEDICATIONS ADMINISTERED No Known Medications MEDICAL (GENERAL) HISTORY Type Description Date Medical History heart murmur Medical History irregular heart beat Medical History muscle around heart is too thick Medical History chronic bronchitis Medical History diabetes mellitus Surgical History tubal ligation 1993 Surgical History dilatation and curettage 1992 Surgical History tumor removal left leg Hospitalization History [facility] 03/2012
--- OUTSIDE RECORDS SUMMARY | 2019-11-01 20:27 | XMS REPORT ---
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 Name Role Phone IRVIN RUIZ Unavailable PROBLEMS Type Condition ICD9-CM Code XZF03-CK Code Onset Dates Condition S tatus SNOMED Code Problem Costochondritis 733.6 Active 6410 9004 Problem Grief reaction F43.21 Active 09711 5009 Problem Hyperlipidemia E78.5 Active 67261 004 Problem Unspecified cardiac dysrhythmia 427.9 Active 899996909 Problem Diabetes 250.00 Active 79254934 Problem Type 2 diabetes mellitus without complications E11 .9 Active 45166527 Problem Essential hypertension I10 Active [id number] ALLERGIES No Information ENCOUNTERS Encounter Location Date Diagnosis [place] [address] [place] [id number] [place] [address] Mar, Type 2 diabetes mellitus wit hout complications E11.9 [place] [id number] [place] [address] December, Insect bite (nonvenomous), l eft thigh, initial encounter S70.362A ; Local infection of the skin and subcutaneous tissue, unspecified L08.9 and Bitten or stung by nonvenomous insect and other nonvenomous arthropods, initial encounter W57.XXXA [place] [address] [place] [id number] [place] [address] December, [place] [address] [address] Nov, [place] [address] [place] [id number] [place] [address] Nov, [place] [address] [place] [id number] [place] [address] Oct, URI (upper respiratory infec tion) J06.9 ; Type 2 diabetes mellitus without complications E11.9 and Hyperlipidemia E78.5 [facility] [address] [facility] [id number] [address] [place] [address] Aug, [facility] [address] [facility] [id number] [address] [place] [address] Jun, Acute nasopharyngitis J00 [facility] [address] [facility] [id number] [address] [place] [phone] May, Encounter for immunization Z 23 [facility] [address] [facility] [id number] [address] [place] [address] 20 Apr, 2018 [place] [address] [place] [id number] [address] [place] [address] Apr, Type 2 diabetes mellitus wit hout complications E11.9 [place] [address] [place] [id number] [address] [place] [id number] Apr, Type 2 diabetes mellitus wit hout complications E11.9 ; Grief reaction F43.21 and Essential hypertension I10 [facility] [address] [facility] [id number] [address] [place] [id number] Mar, Type 2 diabetes mellitus wit hout complications E11.9 [place] [address] [facility] [id number] [address] [place] [id number] Mar, Type 2 diabetes mellitus wit hout complications E11.9 [facility] [address] [facility] [id number] [address] [place] [address] Feb, [facility] [address] [facility] [id number] [address] [place] [address] Jan, [facility] [address] [place] [id number] [address] [place] [address] Nov, Type 2 diabetes mellitus wit hout complications E11.9 [facility] [address] [place] [id number] [address] [place] [address] Oct, [facility] [address] [id number] [address] [place] [address] Oct, Labia irritation N90.89 [facility] [address] [id number] [address] [place] [address] Sep, [facility] [address] [id number] [address] [place] [address] Sep, [facility] [address] [id number] [address] [place] [address] Sep, [facility] [address] [id number] [address] [place] [address] Aug, [facility] [address] [id number] [address] [place] [address] Jul, [facility] [address] [id number] [address] [place] [address] Jul, [facility] [address] [id number] [address] [place] [id number] Mar, Type 2 diabetes mellitus wit hout complications E11.9 ; Acute pain of right knee M25.561 and Essential hypertension I10 [facility] [address] [facility] [id number] [address] [place] [address] Mar, [facility] [address] [facility] [id number] [address] [place] [address] Mar, Dysuria R30.0 [facility] [address] [id number] [address] [place] [address] December, [facility] [address] [id number] [address] [place] [address] Nov, [facility] [address] [facility] [id number] [address] [place] [address] Nov, Dental examination Z01.20 [facility] [address] [facility] [id number] [address] [place] [address] Nov, Dental examination Z01.20 [place] [address] [facility] [id number] [address] [place] [address] Nov, Non-intractable vomiting wit h nausea, unspecified vomiting type R11.2 ; Arthralgia, unspecified joint M25.50 ; Fever, unspecified fever cause R50.9 ; Type 2 diabetes mellitus without complications E11.9 and Tooth pain K08.89 [place] [address] [facility] [id number] [address] [place] [id number] Nov, Type 2 diabetes mellitus wit hout complications E11.9 [place] [address] [facility] [id number] [address] [place] [address] Nov, Type 2 diabetes mellitus wit hout complications E11.9 and Bronchitis J40 [place] [address] [facility] [id number] [address] [place] [address] Oct, Type 2 diabetes mellitus wit hout complications E11.9 [place] [id number] [place] [address] Jul, [place] [address] [place] [id number] [address] [place] [address] Jul, Dysuria R30.0 ; Hematuria R3 1.9 and Vaginal pain R10.2 [place] [address] [place] [id number] [address] [place] [address] Jul, Dysuria R30.0 ; Vaginal disc harge N89.8 and Low back strain, initial encounter S39.012A [place] [address] [facility] [id number] [address] [place] [address] Jun, Bacterial conjunctivitis of right eye H10.9 ; Sore throat J02.9 and Acute non-recurrent maxillary sinusitis J01.00 [place] [address] [facility] [id number] [address] [place] [id number] Jun, [place] [address] [facility] [id number] [address] [place] [address] May, [facility] [address] [id number] [address] [place] [id number] 27 Apr, 2016 [facility] [address] [id number] [address] [place] [address] 14 Apr, 2016 [facility] [address] [id number] [address] [place] [address] Apr, [facility] [address] [id number] [address] [place] [address] Apr, Type 2 diabetes mellitus wit hout complications E11.9 [facility] [address] [id number] [address] [place] [address] Mar, [facility] [address] [id number] [address] [place] [address] Feb, Bronchitis J40 [facility] [address] [id number] [address] [place] [address] Feb, Bronchitis J40 [facility] [address] [id number] [address] [place] [id number] Feb, Type 2 diabetes mellitus wit hout complications E11.9 [facility] [address] [id number] [address] [place] [address] Feb, [facility] [address] [id number] [address] [place] [address] Feb, [facility] [address] [id number] [address] [place] [address] Feb, Type 2 diabetes mellitus wit hout complications E11.9 and Dysuria R30.0 [facility] [address] [id number] [address] [place] [address] Jan, Type 2 diabetes mellitus wit hout complications E11.9 [facility] [address] [id number] [address] [place] [address] 14 Jan, 2016 Type 2 diabetes mellitus wit hout complications E11.9 [facility] [address] [id number] [address] [place] [address] December, Type 2 diabetes mellitus wit hout complications E11.9 [facility] [id number] [place] [address] Nov, Type 2 diabetes mellitus wit hout complications E11.9 [facility] [address] [place] [id number] [address] [place] [address] Oct, Type 2 diabetes mellitus wit hout complications E11.9 ; Fever R50.9 ; Myalgia M79.1 and Cough R05 [facility] [address] [place] [id number] [place] [address] 15 Sep, 2015 Dysuria R30.0 and Cystitis N 30.90 [facility] [address] [place] [id number] [address] [place] [address] Sep, [facility] [address] [address] Sep, [facility] [address] [place] [id number] [address] [place] [id number] Aug, Dental examination Z01.20 [facility] [address] [place] [id number] [place] [address] Aug, Type 2 diabetes mellitus wit hout complications E11.9 [facility] [id number] [place] [address] Jul, Dysfunction of left eustachi an tube H69.82 [facility] [id number] [place] [address] Jun, [facility] [address] [place] [id number] [address] [place] [address] Jun, Cellulitis L03.90 [facility] [address] [place] [id number] [address] [place] [phone] Jun, [facility] [id number] [place] [address] Jun, [place] [address] [facility] [id number] [address] [place] [address] Jun, [facility] [address] [facility] [id number] [address] [place] [address] May, Dermatofibroma of ankle, rig ht D23.71 [place] [address] [place] [id number] [address] [place] [id number] May, [place] [address] [facility] [id number] [address] [place] [address] Apr, Diabetes 250.00 and 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 [place] [address] [place] [id number] [address] [place] [id number] Apr, [place] [address] [place] [id number] [address] [place] [address] Apr, [place] [address] [place] [id number] [address] [place] [address] Apr, Diabetes 250.00 ; Influenza vaccine administered V04.81 and Allergic rhinitis 477.9 [place] [address] [facility] [id number] [address] [place] [id number] Mar, [place] [address] [place] [id number] [address] [place] [address] Jan, [place] [address] [place] [id number] [address] [place] [address] Jan, DM w/o complication type II 250.00 [place] [address] [facility] [id number] [address] [place] [address] December, DM w/o complication type II 250.00 ; Calcaneal spur 726.73 ; Vaginitis due to Amanda 112.1 and Onychomycosis 110.1 [place] [address] [facility] [id number] [address] [place] [address] Nov, Amanda infection of genital region 112.2 [place] [address] [facility] [id number] [address] [place] [address] 14 Nov, 2014 [facility] [address] [id number] [address] [place] [address], [place] [address] 13 Nov, 2014 [facility] [address] [id number] [address] [place] [address], [place] [id number] 10 Oct, 2014 [facility] [address] [id number] [address] [place] [address], [place] [address] Oct, [facility] [address] [id number] [address] [place] [address], [place] [id number] 24 Sep, 2014 [facility] [address] [id number] [address] [place] [address], [place] [address] Sep, [facility] [address] [id number] [address] [place] [address], [place] [address] Jul, [facility] [address] [id number] [address] [place] [address], [place] [address] Jul, [facility] [address] [id number] [address] [place] [address], [place] [address] Jun, [facility] [address] [id number] [address] [place] [address], [place] [address] Jun, [facility] [address] [id number] [address] [place] [address], [place] [address] Jun, [facility] [address] [id number] [address] [place] [address], [place] [address] Jun, [facility] [address] [id number] [address] [place] [address], [place] [address] May, [facility] [address] [id number] [address] [place] [address], [place] [address] May, [facility] [address] [id number] [address] [place] [address], [place] [address] May, [facility] [address] [id number] [address] [place] [address], [place] [address] May, [facility] [address] [id number] [facility] [place] [address] Apr, 2013 [facility] [address] [id number] [facility] [place] [address] Apr, [facility] [address] [id number] [facility] [place] [address] Apr, [facility] [address] [id number] [address] [place] [address], [place] [address] Apr, [facility] [address] [id number] [address] [place] [address], [place] [address] Mar, [facility] [address] [id number] [address] [place] [address], [place] [address] Mar, [facility] [address] [id number] [address] [place] [address], [place] [address] Mar, [facility] [address] [id number] [address] [place] [address], [place] [address] Mar, [facility] [address] [id number] [address] [place] [address], [place] [address] Mar, [facility] [address] [id number] [address] [place] [address], [place] [address] Mar, [facility] [address] [id number] [address] [place] [address], [place] [address] Mar, [facility] [address] [id number] [address] [place] [address], [place] [address] Mar, [facility] [address] [id number] [address] [place] [address], [place] [address] Mar, [facility] [address] [id number] [address] [place] [address], [place] [address] Mar, [facility] [address] [id number] [address] [place] [address], [place] [address] Mar, [facility] [address] [id number] [address] [place] [address], [place] [address] Mar, [facility] [address] [id number] [facility] [place] [address] Feb, [facility] [address] [id number] [address] [place] [address], [place] [address] Feb, [facility] [address] [id number] [address] [place] [address], [place] [address] Jan, [facility] [address] [id number] [address] [place] [address], [place] [address] Jan, [facility] [address] [id number] [address] [place] [address], [place] [address] Jan, [facility] [address] [id number] [address] [place] [address], [place] [address] Jan, [facility] [address] [id number] [address] [place] [address], [place] [address] December, [facility] [address] [id number] [address] [place] [address], [place] [address] December, [facility] [address] [id number] [address] [place] [address], [place] [address] December, [facility] [address] [id number] [address] [place] [address], [place] [address] December, [facility] [address] [id number] [address] [place] [address], [place] [address] Nov, [facility] [address] [id number] [address] [place] [address], [place] [address] Nov, [facility] [address] [id number] [address] [place] [address], [place] [address] Nov, [facility] [address] [id number] [address] [place] [address], [place] [address] Nov, [facility] [address] [id number] [address] [place] [address], [place] [address] Nov, [facility] [address] [id number] [address] [address] Nov, [facility] [address] [id number] [address] [place] [address], [place] [address] Nov, [facility] [address] [id number] [address] [place] [address], [place] [address] Oct, [facility] [address] [id number] [address] [place] [address], [place] [address] Oct, [facility] [address] [id number] [address] [place] [address], [place] [address] Oct, [facility] [address] [id number] [address] [place] [address], [place] [address] Oct, [facility] [address] [id number] [address] [place] [address], [place] [address] Oct, [facility] [address] [id number] [address] [place] [address], [place] [address] Oct, [facility] [address] [id number] [address] [place] [address], [place] [address] Oct, [facility] [address] [id number] [address] [place] [address], [place] [address] 07 Sep, 2013 [facility] [address] [id number] [address] [place] [address], [place] [address] 07 Sep, 2013 [facility] [address] [id number] [address] [place] [address], [place] [address] Sep, [facility] [address] [id number] [address] [place] [address], [place] [address] Sep, [facility] [address] [id number] [address] [place] [address], [place] [address] Aug, [facility] [address] [id number] [address] [place] [address], [place] [address] Aug, [facility] [address] [id number] [address] [place] [address], [place] [address] Aug, [facility] [address] [id number] [address] [place] [address], [place] [address] Aug, [facility] [address] [id number] [address] [place] [address], [place] [address] Jul, [facility] [address] [id number] [address] [place] [address], [place] [address] Jul, [facility] [address] [id number] [address] [place] [address], [place] [address] Apr, [facility] [address] [id number] [address] [place] [address], [place] [address] Apr, [facility] [address] [id number] [address] [place] [address], [place] [address] Mar, [facility] [address] [id number] [address] [place] [address], [place] [address] Mar, [facility] [address] [id number] [address] [place] [address], [place] [address] Mar, [facility] [address] [id number] [address] [place] [address], [place] [address] Mar, [facility] [address] [id number] [address] [place] [address], [place] [address] Mar, [facility] [address] [id number] [address] [place] [address], [place] [id number] Mar, [facility] [address] [id number] [address] [place] [address], [place] [id number] Mar, [facility] [address] [id number] [address] [place] [address], [place] [id number] Mar, [facility] [address] [id number] [address] [place] [address], [place] [id number] Mar, [facility] [address] [id number] [address] [place] [address], [place] [id number] Mar, [facility] [address] [id number] [address] [place] [address], [place] [id number] 31 Feb, 2013 [facility] [address] [id number] [address] [place] [address], [place] [id number] 26 Feb, 2013 [facility] [address] [id number] [address] [place] [address], [place] [id number] 18 Feb, 2013 [facility] [address] [id number] [address] [place] [address], [place] [id number] 08 Feb, 2013 [facility] [address] [id number] [address] [place] [address], [place] [id number] Jan, [facility] [address] [id number] [address] [place] [address], [place] [id number] 25 Nov, 2012 [facility] [address] [id number] [address] [place] [address], [place] [id number] 16 Nov, 2012 [facility] [address] [id number] [address] [place] [address], [place] [id number] 15 Nov, 2012 [facility] [address] [id number] [address] [place] [address], [place] [id number] Nov, [facility] [address] [id number] [address] [place] [address], [place] [id number] Oct, [facility] [address] [id number] [address] [place] [address], [place] [id number] Sep, [facility] [address] [id number] [address] [place] [address], [place] [id number] Sep, [facility] [address] [id number] [address] [place] [address], [place] [id number] Aug, [facility] [address] [id number] [address] [place] [address], [place] [id number] Jul, [facility] [address] [id number] [address] [place] [address], [place] [id number] Jul, [facility] [address] [id number] [address] [place] [address], [place] [id number] May, [facility] [address] [id number] [address] [place] [address], [place] [id number] May, [facility] [address] [id number] [address] [place] [address], [place] [id number] May, [facility] [address] [id number] [address] [place] [address], [place] [id number] May, [facility] [address] [id number] [address] [place] [address], [place] [id number] Apr, [facility] [address] [id number] [address] [place] [address], [place] [id number] Mar, [facility] [address] [id number] [address] [place] [address], [place] [id number] Mar, [facility] [address] [id number] [address] [place] [address], [place] [id number] Mar, [facility] [address] [id number] [address] [place] [address], [place] [id number] Mar, [facility] [address] [id number] [address] [place] [address], [place] [id number] Mar, [facility] [address] [id number] [address] [place] [address], [place] [id number] Mar, [facility] [address] [id number] [address] [place] [address], [place] [id number] Mar, [facility] [address] [id number] [address] [place] [address], [place] [id number] Mar, [facility] [address] [id number] [address] [place] [address], [place] [id number] Feb, [facility] [address] [id number] [address] [place] [address], [place] [id number] Feb, [facility] [address] [id number] [address] [place] [address], [place] [id number] Jan, [facility] [address] [id number] [address] [address] December, [facility] [address] [id number] [address] [place] [address], [place] [id number] December, [facility] [address] [id number] [address] [place] [address], [place] [id number] 23 Nov, 2011 [facility] [address] [id number] [address] [place] [address], [place] [id number] 19 Nov, 2011 [facility] [address] [id number] [address] [place] [address], [place] [id number] 18 Nov, 2011 [facility] [address] [id number] [address] [place] [address], [place] [id number] Nov, [facility] [address] [id number] [address] [place] [address], [place] [id number] 08 Oct, 2011 [facility] [address] [id number] [address] [place] [address], [place] [id number] 29 Sep, 2011 [facility] [address] [id number] [address] [place] [address], [place] [id number] 21 Sep, 2011 [facility] [address] [id number] [address] [place] [address], [place] [id number] 17 Sep, 2011 [facility] [address] [id number] [address] [place] [address], [place] [id number] 17 Sep, 2011 [facility] [address] [id number] [address] [place] [address], [place] [id number] 16 Sep, 2011 [facility] [address] [id number] [address] [place] [id number] 16 Sep, 2011 [facility] [address] [id number] [address] [place] [address], [place] [id number] 15 Sep, 2011 [facility] [address] [id number] [address] [place] [address], [place] [id number] 15 Sep, 2011 [facility] [address] [id number] [address] [place] [id number] 05 Aug, 2011 [facility] [address] [id number] [address] [place] [address], [place] [id number] 29 Jul, 2011 [facility] [address] [id number] [address] [place] [address], [place] [id number] 14 Jul, 2011 [facility] [address] [id number] [address] [place] [address], [place] [id number] 14 Jul, 2011 [facility] [address] [id number] [address] [place] [address], [place] [id number] 08 Jun, 2011 [facility] [address] [id number] [address] [place] [address], [place] [id number] Jul, [facility] [address] [id number] [address] [place] [address], [place] [id number] Jul, [facility] [address] [id number] [address] [place] [address], [place] [id number] 16 Jul, 2010 [facility] [address] [id number] [address] [place] [address], [place] [id number] Jul, [facility] [address] [id number] [address] [place] [address], [place] [id number] Jul, [facility] [address] [id number] [address] [place] [address], [place] [id number] May, [facility] [address] [id number] [address] [place] [address], [place] [id number] May, [facility] [address] [id number] [address] [place] [address], [place] [id number] May, [facility] [address] [id number] [address] [place] [address], [place] [id number] 15 Apr, 2010 [facility] [address] [id number] [address] [place] [address], [place] [id number] 13 Jun, 2009 [facility] [address] [id number] [address] [place] [address], [place] [id number] 13 Jun, 2009 [facility] [address] [id number] [address] [place] [address], [place] [id number] May, [facility] [address] [facility] [id number] [address] [place] [address] Jan, IMMUNIZATIONS No Known Immunizations SOCIAL HISTORY [...]
--- OUTSIDE RECORDS SUMMARY | 2019-11-01 20:28 | XMS REPORT ---
Author Author Nyasia Juarez Doctor Organization [facility] Address Unknown Phone Unavailable Care Team Providers Care Police Captain Senior Name Role Phone Migration, Doctor Unavailable Unavailable PROBLEMS Type Condition ICD9-CM Code QIE38-MH Code Onset Dates Condition S tatus SNOMED Code Problem Costochondritis 733.6 Active 6410 9004 Problem Grief reaction F43.21 Active 08872 5009 Problem Hyperlipidemia E78.5 Active 99379 004 Problem Unspecified cardiac dysrhythmia 427.9 Active 725442219 Problem Diabetes 250.00 Active 59338868 Problem Type 2 diabetes mellitus without complications E11 .9 Active 50053805 Problem Essential hypertension I10 Active 03479938 ALLERGIES Substance Reaction Event Type Date Status Doxycycline Hyclate 100 Mg Tablet Unknown Non Drug Allergy Nov, Active Glucotrol Xl 2.5 Mg Tablet Extended Release 24hr MIgraine Non Drug Allergy Nov, Active ENCOUNTERS Encounter Location Date Diagnosis [place] [address] [place] [id number] [place] [address] December, Insect bite (nonvenomous), l eft thigh, initial encounter S70.362A ; Local infection of the skin and subcutaneous tissue, unspecified L08.9 and Bitten or stung by nonvenomous insect and other nonvenomous arthropods, initial encounter W57.XXXA [place] [address] [place] [id number] [place] [phone] December, [place] [id number] [place] [address] Nov, [place] [address] [place] [id number] [place] [address] Nov, [place] [address] [place] [id number] [place] [phone] Oct, URI (upper respiratory infec tion) J06.9 ; Type 2 diabetes mellitus without complications E11.9 and Hyperlipidemia E78.5 [facility] [place] [address] [facility] [id number] [address] [place] [address] Aug, [facility] [place] [address] [facility] [id number] [address] [place] [phone] Jun, Acute nasopharyngitis J00 [facility] [place] [address] [facility] [id number] [address] [place] [address] May, Encounter for immunization Z 23 [facility] [place] [address] [facility] [id number] [address] [place] [id number] 20 Apr, 2018 [facility] [place] [address] [facility] [id number] [address] [place] [address] Apr, Type 2 diabetes mellitus wit hout complications E11.9 [facility] [place] [address] [facility] [id number] [address] [place] [phone] Apr, Type 2 diabetes mellitus wit hout complications E11.9 ; Grief reaction F43.21 and Essential hypertension I10 [facility] [place] [address] [facility] [id number] [address] [place] [id number] Mar, Type 2 diabetes mellitus wit hout complications E11.9 [facility] [place] [address] [facility] [id number] [address] [place] [phone] Mar, Type 2 diabetes mellitus wit hout complications E11.9 [facility] [place] [address] [facility] [id number] [address] [place] [phone] Feb, [facility] [place] [address] [facility] [id number] [address] [place] [phone] Jan, [facility] [place] [address] [facility] [id number] [address] [place] [phone] Nov, Type 2 diabetes mellitus wit hout complications E11.9 [facility] [place] [address] [facility] [id number] [address] [place] [phone] Oct, [facility] [place] [address] [facility] [id number] [address] [place] [id number] Oct, Labia irritation N90.89 [facility] [place] [address] [id number] [address] [place] [id number] Sep, [facility] [place] [address] [id number] [address] [place] [phone] Sep, [facility] [place] [address] [id number] [address] [place] [phone] Sep, [facility] [place] [address] [id number] [address] [place] [phone] Aug, [facility] [place] [address] [id number] [address] [place] [phone] Jul, [facility] [place] [address] [id number] [address] [place] [phone] Jul, [facility] [place] [address] [facility] [id number] [address] [place] [address] Mar, Type 2 diabetes mellitus wit hout complications E11.9 ; Acute pain of right knee M25.561 and Essential hypertension I10 [facility] [place] [address] [id number] [address] [place] [phone] Mar, [facility] [place] [address] [id number] [address] [place] [phone] Mar, Dysuria R30.0 [facility] [place] [address] [id number] [address] [place] [phone] December, [facility] [place] [address] [id number] [address] [place] [phone] Nov, [facility] [place] [address] [id number] [address] [place] [address] Nov, Dental examination Z01.20 [facility] [place] [address] [id number] [address] [place] [phone] Nov, Dental examination Z01.20 [facility] [place] [address] [id number] [address] [place] [phone] Nov, Non-intractable vomiting wit h nausea, unspecified vomiting type R11.2 ; Arthralgia, unspecified joint M25.50 ; Fever, unspecified fever cause R50.9 ; Type 2 diabetes mellitus without complications E11.9 and Tooth pain K08.89 [place] [id number] [place] [id number] [place] [phone] Nov, Type 2 diabetes mellitus wit hout complications E11.9 [place] [address] [place] [id number] [place] [address] Nov, Type 2 diabetes mellitus wit hout complications E11.9 and Bronchitis J40 [place] [address] [address] Oct, Type 2 diabetes mellitus wit hout complications E11.9 [place] [address] [place] [id number] [place] [phone] Jul, [place] [address] [place] [id number] [place] [address] Jul, Dysuria R30.0 ; Hematuria R3 1.9 and Vaginal pain R10.2 [place] [address] [place] [id number] [place] [id number] Jul, Dysuria R30.0 ; Vaginal disc harge N89.8 and Low back strain, initial encounter S39.012A [place] [address] [place] [id number] [place] [address] Jun, Bacterial conjunctivitis of right eye H10.9 ; Sore throat J02.9 and Acute non-recurrent maxillary sinusitis J01.00 [place] [id number] [place] [address] Jun, [place] [address] [place] [id number] [place] [phone] May, [place] [address] [place] [id number] [place] [phone] Apr, [facility] [place] [address] [id number] [address] [place] [id number] 14 Apr, 2016 [facility] [place] [address] [id number] [address] [place] [phone] Apr, [facility] [place] [address] [id number] [address] [place] [phone] Apr, Type 2 diabetes mellitus wit hout complications E11.9 [facility] [place] [address] [id number] [address] [place] [phone] Mar, [facility] [place] [address] [id number] [address] [place] [id number] Feb, Bronchitis J40 [facility] [place] [address] [id number] [address] [place] [phone] Feb, Bronchitis J40 [facility] [place] [address] [id number] [address] [place] [phone] Feb, Type 2 diabetes mellitus wit hout complications E11.9 [facility] [place] [address] [id number] [address] [place] [phone] Feb, [facility] [place] [address] [id number] [address] [place] [phone] Feb, [facility] [place] [address] [id number] [address] [place] [phone] Feb, Type 2 diabetes mellitus wit hout complications E11.9 and Dysuria R30.0 [facility] [place] [address] [id number] [address] [place] [phone] Jan, Type 2 diabetes mellitus wit hout complications E11.9 [facility] [place] [address] [id number] [address] [place] [phone] 14 Jan, 2016 Type 2 diabetes mellitus wit hout complications E11.9 [facility] [place] [address] [id number] [address] [place] [phone] December, Type 2 diabetes mellitus wit hout complications E11.9 [facility] [place] [address] [place] [id number] [place] [phone] Nov, Type 2 diabetes mellitus wit hout complications E11.9 [place] [address] [address] Oct, Type 2 diabetes mellitus wit hout complications E11.9 ; Fever R50.9 ; Myalgia M79.1 and Cough R05 [place] [address] [id number] 15 Sep, 2015 Dysuria R30.0 and Cystitis N 30.90 [place] [address] [address] Sep, [place] [address] [address] Sep, [facility] [address] [place] [id number] [place] [id number] Aug, Dental examination Z01.20 [place] [address] [place] [id number] [place] [id number] Aug, Type 2 diabetes mellitus wit hout complications E11.9 [place] [address] [place] [id number] [place] [address] Jul, Dysfunction of left eustachi an tube H69.82 [place] [address] [place] [id number] [place] [phone] Jun, [place] [address] [place] [id number] [place] [address] Jun, Cellulitis L03.90 [place] [address] [place] [id number] [place] [address] Jun, [place] [address] [phone] Jun, [place] [address] [place] [id number] [place] [address] Jun, [place] [address] [facility] [id number] [address] [place] [address] May, Dermatofibroma of ankle, rig ht D23.71 [place] [address] [facility] [id number] [address] [place] [address] May, [place] [address] [place] [id number] [place] [phone] Apr, Diabetes 250.00 and 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 [place] [address] [facility] [id number] [address] [place] [address] Apr, [place] [address] [place] [id number] [place] [id number] Apr, [place] [address] [place] [id number] [place] [address] Apr, Diabetes 250.00 ; Influenza vaccine administered V04.81 and Allergic rhinitis 477.9 [place] [address] [place] [id number] [place] [phone] Mar, [place] [address] [place] [id number] [place] [address] Jan, [place] [address] [place] [id number] [place] [address] Jan, DM w/o complication type II 250.00 [place] [id number] [place] [address] December, DM w/o complication type II 250.00 ; Calcaneal spur 726.73 ; Vaginitis due to Amanda 112.1 and Onychomycosis 110.1 [place] [address] [place] [id number] [place] [phone] 30 Nov, 2014 Amanda infection of genital region 112.2 [place] [address] [place] [id number] [place] [phone] Nov, [place] [address] [place] [id number] [place] [address] Nov, [facility] [address] [id number] [address] [place] [address], [place] [address] Oct, [facility] [address] [id number] [address] [place] [address], [place] [address] Oct, [facility] [address] [id number] [address] [place] [address], [place] [address] Sep, [facility] [address] [id number] [address] [place] [address], [place] [address] Sep, [facility] [address] [id number] [address] [place] [address], [place] [address] Jul, [facility] [address] [id number] [address] [place] [address], [place] [address] Jul, [facility] [address] [id number] [address] [place] [address], [place] [address] Jun, [facility] [address] [id number] [address] [place] [address], [place] [address] Jun, [facility] [address] [id number] [address] [place] [address], [place] [address] Jun, [facility] [address] [id number] [address] [place] [address], [place] [address] Jun, [facility] [address] [id number] [address] [place] [address], [place] [address] May, [facility] [address] [id number] [address] [place] [address], [place] [address] May, [facility] [address] [id number] [address] [place] [address], [place] [address] May, [facility] [address] [id number] [address] [place] [address], [place] [address] May, [facility] [address] [id number] [address] [place] [address], [place] [address] Apr, [facility] [address] [id number] [facility] [place] [address] Apr, [facility] [address] [id number] [facility] [place] [address] Apr, [facility] [address] [id number] [facility] [place] [address] Apr, [facility] [address] [id number] [address] [place] [address], [place] [address] Mar, [facility] [address] [id number] [address] [place] [address], [place] [address] Mar, [facility] [address] [id number] [address] [place] [address], [place] [address] Mar, [facility] [address] [id number] [address] [place] [address], [place] [address] Mar, [facility] [address] [id number] [address] [place] [address], [place] [address] Mar, [facility] [address] [id number] [address] [place] [address], [place] [address] Mar, [facility] [address] [id number] [address] [place] [address], [place] [address] Mar, [facility] [address] [id number] [address] [place] [address], [place] [address] Mar, [facility] [address] [id number] [address] [place] [address], [place] [address] Mar, [facility] [address] [id number] [address] [place] [address], [place] [address] Mar, [facility] [address] [id number] [address] [place] [address], [place] [address] Mar, [facility] [address] [id number] [address] [place] [address], [place] [address] Mar, [facility] [address] [id number] [address] [place] [address], [place] [address] Feb, [facility] [address] [id number] [address] [place] [address], [place] [address] Feb, [facility] [address] [id number] [address] [place] [address], [place] [address] Jan, [facility] [address] [id number] [address] [place] [address], [place] [address] Jan, [facility] [address] [id number] [address] [place] [address], [place] [address] Jan, [facility] [address] [id number] [address] [place] [address], [place] [address] Jan, [facility] [address] [id number] [address] [place] [address], [place] [address] December, [facility] [address] [id number] [address] [place] [address], [place] [address] December, [facility] [address] [id number] [address] [place] [address], [place] [address] December, [facility] [address] [id number] [address] [place] [address], [place] [address] December, [facility] [address] [id number] [address] [place] [address], [place] [address] Nov, [facility] [address] [id number] [address] [place] [address], [place] [address] Nov, [facility] [address] [id number] [address] [place] [address], [place] [address] Nov, [facility] [address] [id number] [address] [place] [address], [place] [address] Nov, [facility] [address] [id number] [address] [place] [address], [place] [address] Nov, [facility] [address] [id number] [address] [place] [address], [place] [address] Nov, [facility] [address] [id number] [address] [place] [address], [place] [address] 02 Nov, 2013 [facility] [address] [id number] [address] [place] [address], [place] [address] Oct, [facility] [address] [id number] [address] [place] [address], [place] [address] 31 Oct, 2013 [facility] [address] [id number] [address] [place] [address], [place] [address] 28 Oct, 2013 [facility] [address] [id number] [address] [place] [address], [place] [address] Oct, [facility] [address] [id number] [address] [place] [address], [place] [address] Oct, [facility] [address] [id number] [address] [place] [address], [place] [address] Oct, [facility] [address] [id number] [address] [place] [address], [place] [address] Oct, [facility] [address] [id number] [address] [place] [address], [place] [address] 07 Sep, 2013 [facility] [address] [id number] [address] [place] [address], [place] [address] 07 Sep, 2013 [facility] [address] [id number] [address] [place] [address], [place] [address] Sep, [facility] [address] [id number] [address] [place] [address], [place] [address] Sep, [facility] [address] [id number] [address] [place] [address], [place] [address] Aug, [facility] [address] [id number] [address] [place] [address], [place] [address] Aug, [facility] [address] [id number] [address] [place] [address], [place] [address] Aug, [facility] [address] [id number] [address] [place] [address], [place] [address] Aug, [facility] [address] [id number] [address] [place] [address], [place] [address] Jul, [facility] [address] [id number] [address] [place] [address], [place] [address] Jul, [facility] [address] [id number] [address] [place] [address], [place] [address] Apr, [facility] [address] [id number] [address] [place] [address], [place] [address] Apr, [facility] [address] [id number] [address] [place] [address], [place] [address] Mar, [facility] [address] [id number] [address] [place] [address], [place] [address] Mar, [facility] [address] [id number] [address] [place] [address], [place] [address] Mar, [facility] [address] [id number] [address] [place] [address], [place] [address] Mar, [facility] [address] [id number] [address] [place] [address], [place] [address] Mar, [facility] [address] [id number] [address] [place] [address], [place] [address] Mar, [facility] [address] [id number] [address] [place] [address], [place] [address] Mar, [facility] [address] [id number] [address] [place] [address], [place] [address] Mar, [facility] [address] [id number] [address] [place] [address], [place] [address] Mar, [facility] [address] [id number] [address] [place] [address], [place] [address] Mar, [facility] [address] [id number] [address] [place] [address], [place] [address] Feb, [facility] [address] [id number] [address] [place] [address], [place] [address] 26 Feb, 2013 [facility] [address] [id number] [address] [place] [address], [place] [address] 18 Feb, 2013 [facility] [address] [id number] [address] [place] [address], [place] [address] 08 Feb, 2013 [facility] [address] [id number] [address] [place] [address], [place] [address] Jan, [facility] [address] [id number] [address] [place] [address], [place] [address] 25 Nov, 2012 [facility] [address] [id number] [address] [place] [address], [place] [address] 16 Nov, 2012 [facility] [address] [id number] [address] [place] [address], [place] [address] 15 Nov, 2012 [facility] [address] [id number] [address] [place] [address], [place] [address] Nov, [facility] [address] [id number] [address] [place] [address], [place] [address] Oct, [facility] [address] [id number] [address] [place] [address], [place] [address] Sep, [facility] [address] [id number] [address] [place] [address], [place] [address] Sep, [facility] [address] [id number] [address] [place] [address], [place] [address] Aug, [facility] [address] [address] [id number] [address] [place] [address], [place] [address] Jul, [facility] [address] [id number] [address] [place] [address], [place] [address] Jul, [facility] [address] [id number] [address] [place] [address], [place] [address] May, [facility] [address] [id number] [address] [place] [address], [place] [address] May, [facility] [address] [id number] [address] [place] [address], [place] [address] May, [facility] [address] [id number] [address] [place] [address], [place] [address] May, [facility] [address] [id number] [address] [place] [address], [place] [address] Apr, [facility] [address] [id number] [address] [place] [address], [place] [address] Mar, [facility] [address] [id number] [address] [place] [address], [place] [address] Mar, [facility] [address] [id number] [address] [place] [address], [place] [address] Mar, [facility] [address] [id number] [address] [place] [address], [place] [address] Mar, [facility] [address] [id number] [address] [place] [address], [place] [address] Mar, [facility] [address] [id number] [address] [place] [address], [place] [address] Mar, [facility] [address] [id number] [address] [place] [address], [place] [address] Mar, [facility] [address] [id number] [address] [place] [address], [place] [address] Mar, [facility] [address] [id number] [address] [place] [address], [place] [address] Feb, [facility] [address] [id number] [address] [place] [address], [place] [address] Feb, [facility] [address] [id number] [address] [place] [address], [place] [address] Jan, [facility] [address] [id number] [address] [place] [address], [place] [address] December, [facility] [address] [id number] [address] [place] [address], [place] [address] December, [facility] [address] [id number] [address] [place] [address], [place] [address] 23 Nov, 2011 [facility] [address] [id number] [address] [place] [address], [place] [address] 19 Nov, 2011 [facility] [address] [id number] [address] [place] [address], [place] [address] 18 Nov, 2011 [facility] [address] [id number] [address] [place] [address], [place] [address] 10 Nov, 2011 [facility] [address] [id number] [address] [place] [address], [place] [address] 08 Oct, 2011 [facility] [address] [id number] [address] [place] [address], [place] [address] 29 Sep, 2011 [facility] [address] [id number] [address] [place] [address], [place] [address] 21 Sep, 2011 [facility] [address] [id number] [address] [place] [address], [place] [address] 17 Sep, 2011 [facility] [address] [id number] [address] [place] [address], [place] [address] 17 Sep, 2011 [facility] [address] [id number] [address] [place] [address], [place] [address] 16 Sep, 2011 [facility] [address] [id number] [address] [place] [address], [place] [address] 16 Sep, 2011 [facility] [address] [id number] [address] [place] [address], [place] [address] 15 Sep, 2011 [facility] [address] [id number] [address] [place] [address], [place] [address] 15 Sep, 2011 [facility] [address] [id number] [address] [place] [address], [place] [address] Aug, [facility] [address] [id number] [address] [place] [address], [place] [address] Jul, [facility] [address] [id number] [address] [place] [address], [place] [address] 14 Jul, 2011 [facility] [address] [id number] [address] [place] [address], [place] [address] 14 Jul, 2011 [facility] [address] [id number] [address] [place] [address], [place] [address] 08 Jun, 2011 [facility] [address] [id number] [address] [place] [address], [place] [address] Jul, [facility] [address] [id number] [address] [place] [address], [place] [address] Jul, [facility] [address] [id number] [address] [place] [address], [place] [address] Jul, [facility] [address] [id number] [address] [place] [address], [place] [address] Jul, [facility] [address] [id number] [address] [place] [address], [place] [address] Jul, [facility] [address] [id number] [address] [place] [address], [place] [address] May, [facility] [address] [id number] [address] [place] [address], [place] [address] May, [facility] [address] [id number] [address] [place] [address], [place] [address] May, [facility] [address] [id number] [address] [place] [address], [place] [address] 15 Apr, 2010 [facility] [address] [id number] [address] [place] [address], [place] [address] 13 Jun, 2009 [facility] [address] [id number] [address] [place] [address], [place] [address] 13 Jun, [address] [facility] [address] [id number] [address] [place] [address], [place] [address] 27 May, 2009 [facility] [address] [id number] [address] [place] [address], [place] [address] Jan, IMMUNIZATIONS No Known Immunizations SOCIAL HISTORY Never Assessed REASON FOR VISIT EMR-[facility] PLAN OF CARE VITAL SIGNS MEDICATIONS Medication Instructions Dosage Frequency Start Date End Date Duration S tatus GlipiZIDE 2.5 mg 1 tablet by Oral route 1 time per day 1 0 Oct, 2014 Active Bactrim DS 800-160 mg 1 tablet by Oral route 2 times p er day for 10 day(s) Jul, Active Januvia 100 mg 1 Tablet by Oral route 1 time per day Apr, Active Invokana 100 mg 1 Tablet by Oral route 1 time per day Take in AM Sep, Active Keflex 500 mg take 1 capsule (500 mg) by oral route every 6 hours for 7 days Sep, Active RESULTS No Results PROCEDURES No Known procedures INSTRUCTIONS MEDICATIONS ADMINISTERED No Known Medications MEDICAL (GENERAL) HISTORY Type Description Date Medical History heart murmur Medical History irregular heart beat Medical History muscle around heart is too thick Medical History chronic bronchitis Medical History diabetes mellitus Surgical History tubal ligation 1993 Surgical History dilatation and curettage 1992 Surgical History tumor removal left leg Hospitalization History [facility] 03/2012
--- OUTSIDE RECORDS SUMMARY | 2019-11-01 20:28 | XMS REPORT ---
Author Author Nyasia Juarez Doctor Organization [facility] Address Unknown Phone Unavailable Care Team Providers Care Web Development Director Name Role Phone Migration, Doctor Unavailable Unavailable PROBLEMS Type Condition ICD9-CM Code [id number] Code Onset Dates Condition S tatus SNOMED Code Problem Costochondritis 733.6 Active 6410 9004 Problem Grief reaction F43.21 Active 91944 5009 Problem Hyperlipidemia E78.5 Active 38728 004 Problem Unspecified cardiac dysrhythmia 427.9 Active 725850392 Problem Diabetes 250.00 Active 10906710 Problem Type 2 diabetes mellitus without complications E11 .9 Active 03655171 Problem Essential hypertension I10 Active [id number] ALLERGIES No Information ENCOUNTERS Encounter Location Date Diagnosis [place] [address] [address] December, Insect bite (nonvenomous), l eft thigh, initial encounter S70.362A ; Local infection of the skin and subcutaneous tissue, unspecified L08.9 and Bitten or stung by nonvenomous insect and other nonvenomous arthropods, initial encounter W57.XXXA [place] [address] [address] [place] [id number] [place] [address] December, [place] [address] [address] Nov, [place] [address] [address] Nov, [place] [address] [address] Oct, URI (upper respiratory infec tion) J06.9 ; Type 2 diabetes mellitus without complications E11.9 and Hyperlipidemia E78.5 [place] [address] [address] [place] [id number] [place] [address] Aug, [facility] [address] [facility] [id number] [address] [place] [address] Jun, Acute nasopharyngitis J00 [facility] [address] [facility] [id number] [address] [place] [address] May, Encounter for immunization Z 23 [facility] [address] [facility] [id number] [address] [place] [address] 20 Apr, 2018 [facility] [address] [facility] [id number] [place] [address] Apr, Type 2 diabetes mellitus wit hout complications E11.9 [facility] [address] [place] [id number] [place] [address] Apr, Type 2 diabetes mellitus wit hout complications E11.9 ; Grief reaction F43.21 and Essential hypertension I10 [facility] [address] [place] [id number] [address] [place] [address] Mar, Type 2 diabetes mellitus wit hout complications E11.9 [facility] [address] [facility] [id number] [address] [place] [address] Mar, Type 2 diabetes mellitus wit hout complications E11.9 [facility] [address] [place] [id number] [address] [place] [address] Feb, [facility] [address] [facility] [id number] [address] [place] [address] Jan, [facility] [address] [facility] [id number] [address] [place] [address] Nov, Type 2 diabetes mellitus wit hout complications E11.9 [facility] [address] [facility] [id number] [address] [place] [address] Oct, [facility] [address] [place] [id number] [address] [place] [address] Oct, Labia irritation N90.89 [facility] [address] [place] [id number] [address] [place] [address] Sep, [facility] [address] [facility] [id number] [address] [place] [address] Sep, [facility] [address] [facility] [id number] [address] [place] [address] Sep, [facility] [address] [place] [id number] [place] [address] Aug, [facility] [address] [place] [id number] [place] [address] Jul, [facility] [address] [place] [id number] [place] [address] Jul, [facility] [address] [place] [id number] [place] [address] Mar, Type 2 diabetes mellitus wit hout complications E11.9 ; Acute pain of right knee M25.561 and Essential hypertension I10 [facility] [address] [address] Mar, [facility] [address] [place] [id number] [place] [address] Mar, Dysuria R30.0 [facility] [address] [place] [id number] [place] [address] December, [facility] [address] [address] Nov, [facility] [address] [place] [id number] [address] [place] [address] Nov, Dental examination Z01.20 [facility] [address] [address] Nov, Dental examination Z01.20 [facility] [address] [place] [id number] [address] [place] [address] Nov, Non-intractable vomiting wit h nausea, unspecified vomiting type R11.2 ; Arthralgia, unspecified joint M25.50 ; Fever, unspecified fever cause R50.9 ; Type 2 diabetes mellitus without complications E11.9 [address] K08.89 [facility] [address] [id number] [address] [place] [address] Nov, Type 2 diabetes mellitus wit hout complications E11.9 [place] [address] [id number] [address] [place] [address] Nov, Type 2 diabetes mellitus wit hout complications E11.[address] [facility] [address] [id number] [address] [place] [address] Oct, Type 2 diabetes mellitus wit hout complications E11.9 [place] [address] [id number] [address] [place] [address] Jul, [place] [address] [facility] [id number] [address] [place] [address] Jul, Dysuria R30.0 ; Hematuria R3 1.9 and Vaginal pain R10.2 [place] [address] [id number] [address] [place] [address] Jul, Dysuria R30.0 ; Vaginal disc harge N89.8 and Low back strain, initial encounter S39.012A [place] [address] [id number] [address] [place] [address] Jun, Bacterial conjunctivitis of right eye H10.9 ; Sore throat J02.9 and Acute non-recurrent maxillary sinusitis J01.00 [place] [address] [id number] [address] [place] [address] Jun, [facility] [address] [id number] [address] [place] [address] May, [place] [address] [id number] [address] [place] [address] Apr, [facility] [address] [id number] [address] [place] [address] Apr, [place] [address] [id number] [address] [place] [address] Apr, [facility] [address] [id number] [address] [place] [address] Apr, Type 2 diabetes mellitus wit hout complications E11.9 [facility] [address] [id number] [address] [place] [address] Mar, [facility] [address] [id number] [address] [place] [address] Feb, Bronchitis J40 [facility] [address] [id number] [address] [place] [address] Feb, Bronchitis J40 [facility] [address] [facility] [id number] [address] [place] [address] Feb, Type 2 diabetes mellitus wit hout complications E11.9 [facility] [address] [id number] [address] [place] [address] Feb, [facility] [address] [id number] [address] [place] [address] Feb, [facility] [address] [id number] [address] [place] [address] Feb, Type 2 diabetes mellitus wit hout complications E11.[address] [facility] [address] [id number] [address] [place] [address] Jan, Type 2 diabetes mellitus wit hout complications E11.9 [facility] [address] [id number] [address] [place] [address] 14 Jan, 2016 Type 2 diabetes mellitus wit hout complications E11.9 [facility] [address] [id number] [address] [place] [address] December, Type 2 diabetes mellitus wit hout complications E11.9 [facility] [address] [id number] [address] [place] [address] Nov, Type 2 diabetes mellitus wit hout complications E11.9 [facility] [address] [place] [id number] [address] [place] [address] Oct, Type 2 diabetes mellitus wit hout complications E11.9 ; Fever R50.9 ; Myalgia M79.[address] [facility] [address] [place] [id number] [address] [place] [address] 15 Sep, 2015 Dysuria R30.0 and Cystitis N 30.90 [place] [address] [place] [id number] [place] [address] Sep, [place] [address] [address] Sep, [facility] [address] [place] [id number] [address] [place] [id number] Aug, Dental examination Z01.20 [place] [address] [address] Aug, Type 2 diabetes mellitus wit hout complications E11.9 [place] [address] [place] [id number] [place] [address] Jul, Dysfunction of left eustachi an tube H69.82 [place] [address] [place] [id number] [place] [address] Jun, [facility] [address] [place] [id number] [place] [address] Jun, Cellulitis L03.90 [facility] [address] [place] [id number] [place] [address] Jun, [facility] [address] [place] [id number] [place] [address] Jun, [facility] [address] [address] Jun, [facility] [address] [place] [id number] [address] [place] [address] May, Dermatofibroma of ankle, rig ht D23.71 [facility] [address] [place] [id number] [address] [place] [address] May, [place] [address] [address] 29 Apr, 2015 Diabetes 250.00 and 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 [place] [address] [place] [id number] [address] [place] [address] Apr, [facility] [address] [address] Apr, [place] [address] [address] Apr, Diabetes 250.00 ; Influenza vaccine administered V04.81 and Allergic rhinitis 477.[address] [address] Mar, [place] [address] [address] Jan, [place] [address] [place] [id number] [place] [address] Jan, DM w/o complication type II 250.00 [place] [id number] [address] [place] [address] December, DM w/o complication type II 250.00 ; Calcaneal spur 726.73 ; Vaginitis due to Amanda 112.1 and Onychomycosis 110.1 [place] [address] [place] [id number] [place] [address] 30 Nov, 2014 Amanda infection of genital region 112.[address] [address] 14 Nov, 2014 [place] [address] [place] [id number] [address] [place] [address] Nov, [place] [address] [place] [id number] [place] [address] Oct, [facility] [address] [id number] [address] [place] [address], [place] [address] Oct, [facility] [address] [id number] [address] [place] [address], [place] [address] Sep, [facility] [address] [id number] [address] [place] [address], [place] [address] Sep, [facility] [address] [id number] [address] [place] [address], [place] [address] Jul, [facility] [address] [id number] [address] [place] [address], [place] [address] Jul, [facility] [address] [id number] [address] [place] [address], [place] [address] Jun, [facility] [address] [id number] [address] [place] [address], [place] [address] Jun, [facility] [address] [id number] [address] [place] [address], [place] [address] Jun, [facility] [address] [id number] [address] [place] [address], [place] [address] Jun, [facility] [address] [id number] [address] [place] [address], [place] [address] May, [facility] [address] [id number] [address] [place] [address], [place] [address] May, [facility] [address] [id number] [address] [place] [address], [place] [address] May, [facility] [address] [id number] [address] [place] [address], [place] [address] May, [facility] [address] [id number] [address] [place] [address], [place] [address] Apr, [facility] [address] [id number] [address] [place] [address], [place] [address] Apr, [facility] [address] [id number] [facility] [place] [address] Apr, [facility] [address] [id number] [address] [place] [address], [place] [address] Apr, [facility] [address] [id number] [address] [place] [address], [place] [address] Mar, [facility] [address] [id number] [address] [place] [address], [place] [address] Mar, [facility] [address] [id number] [address] [place] [address], [place] [address] Mar, [facility] [address] [id number] [address] [place] [address], [place] [address] Mar, [facility] [address] [id number] [address] [place] [address], [place] [address] Mar, [facility] [address] [id number] [address] [place] [address], [place] [address] Mar, [facility] [address] [id number] [address] [place] [address], [place] [address] Mar, [facility] [address] [id number] [address] [place] [address], [place] [address] Mar, [facility] [address] [id number] [address] [place] [address], [place] [address] Mar, [facility] [address] [id number] [address] [place] [address], [place] [address] Mar, [facility] [address] [id number] [address] [place] [address], [place] [address] Mar, [facility] [address] [id number] [address] [place] [address], [place] [address] Mar, [facility] [address] [id number] [address] [place] [address], [place] [address] Feb, [facility] [address] [id number] [address] [place] [address], [place] [address] Feb, [facility] [address] [id number] [address] [place] [address], [place] [address] Jan, [facility] [address] [id number] [address] [place] [address], [place] [address] Jan, [facility] [address] [id number] [address] [place] [address], [place] [address] Jan, [facility] [address] [id number] [address] [place] [address], [place] [address] Jan, [facility] [address] [id number] [address] [place] [address], [place] [address] December, [facility] [address] [id number] [address] [place] [address], [place] [address] December, [facility] [address] [id number] [address] [place] [address], [place] [address] December, [facility] [address] [id number] [address] [place] [address], [place] [address] December, [facility] [address] [id number] [address] [place] [address], [place] [address] Nov, [facility] [address] [id number] [address] [place] [address], [place] [address] Nov, [facility] [address] [id number] [address] [place] [address], [place] [address] Nov, [facility] [address] [id number] [address] [place] [address], [place] [address] Nov, [facility] [address] [id number] [address] [place] [address], [place] [address] Nov, [facility] [address] [id number] [address] [place] [address], [place] [address] Nov, [facility] [address] [id number] [address] [place] [address], [place] [address] Nov, [facility] [address] [id number] [address] [place] [address], [place] [address] Oct, [facility] [address] [id number] [address] [place] [address], [place] [address] 31 Oct, 2013 [facility] [address] [id number] [address] [place] [address], [place] [address] 28 Oct, 2013 [facility] [address] [id number] [address] [place] [address], [place] [address] Oct, [facility] [address] [id number] [address] [place] [address], [place] [address] Oct, [facility] [address] [id number] [address] [place] [address], [place] [address] Oct, [facility] [address] [id number] [address] [place] [address], [place] [address] Oct, [facility] [address] [id number] [address] [place] [address], [place] [address] 07 Sep, 2013 [facility] [address] [id number] [address] [place] [address], [place] [address] 07 Sep, 2013 [facility] [address] [id number] [address] [place] [address], [place] [address] Sep, [facility] [address] [id number] [address] [place] [address], [place] [address] Sep, [facility] [address] [id number] [address] [place] [address], [place] [address] Aug, [facility] [address] [id number] [address] [place] [address], [place] [address] Aug, [facility] [address] [id number] [address] [place] [address], [place] [address] Aug, [facility] [address] [id number] [address] [place] [address], [place] [address] Aug, [facility] [address] [id number] [address] [place] [address], [place] [address] Jul, [facility] [address] [id number] [facility] [place] [address] 16 Jul, 2013 [facility] [address] [id number] [address] [place] [address], [place] [address] 04 Apr, 2013 [facility] [address] [id number] [address] [place] [address], [place] [address] Apr, [facility] [address] [id number] [address] [place] [address], [place] [address] Mar, [facility] [address] [id number] [address] [place] [address], [place] [address] Mar, [facility] [address] [id number] [address] [place] [address], [place] [address] Mar, [facility] [address] [id number] [address] [place] [address], [place] [address] Mar, [facility] [address] [id number] [address] [place] [address], [place] [address] Mar, [facility] [address] [id number] [address] [place] [address], [place] [address] Mar, [facility] [address] [id number] [address] [place] [address], [place] [address] Mar, [facility] [address] [id number] [address] [place] [address], [place] [address] Mar, [facility] [address] [id number] [address] [place] [address], [place] [address] Mar, [facility] [address] [id number] [address] [place] [address], [place] [address] Mar, [facility] [address] [id number] [address] [place] [address], [place] [address] Feb, [facility] [address] [id number] [address] [place] [address], [place] [address] Feb, [facility] [address] [id number] [address] [place] [address] [address] Feb, [facility] [address] [id number] [address] [place] [address], [place] [address] 08 Feb, 2013 [facility] [address] [id number] [address] [place] [address], [place] [address] Jan, [facility] [address] [id number] [address] [place] [address], [place] [address] Nov, [facility] [address] [id number] [address] [place] [address], [place] [address] 16 Nov, 2012 [facility] [address] [id number] [address] [place] [address], [place] [address] 15 Nov, 2012 [facility] [address] [id number] [address] [place] [address], [place] [address] Nov, [facility] [address] [id number] [address] [place] [address], [place] [address] Oct, [facility] [address] [id number] [address] [place] [address], [place] [address] Sep, [facility] [address] [id number] [address] [place] [address], [place] [address] Sep, [facility] [address] [id number] [address] [place] [address], [place] [address] Aug, [facility] [address] [id number] [address] [place] [address], [place] [address] Jul, [facility] [address] [id number] [address] [place] [address], [place] [address] Jul, [facility] [address] [id number] [address] [place] [address], [place] [address] May, [facility] [address] [id number] [address] [place] [address], [place] [address] May, [facility] [address] [id number] [address] [place] [address], [place] [address] May, [facility] [address] [id number] [address] [place] [address], [place] [address] May, [facility] [address] [id number] [address] [place] [address], [place] [address] Apr, [facility] [address] [id number] [address] [place] [address], [place] [address] Mar, [facility] [address] [id number] [address] [place] [address], [place] [address] Mar, [facility] [address] [id number] [address] [place] [address], [place] [address] Mar, [facility] [address] [id number] [address] [place] [address], [place] [address] Mar, [facility] [address] [id number] [address] [place] [address], [place] [address] Mar, [facility] [address] [id number] [address] [place] [address], [place] [address] Mar, [facility] [address] [id number] [address] [place] [address], [place] [address] Mar, [facility] [address] [id number] [address] [place] [address], [place] [address] Mar, [facility] [address] [id number] [address] [place] [address], [place] [address] Feb, [facility] [address] [id number] [address] [place] [address], [place] [address] Feb, [facility] [address] [id number] [address] [place] [address], [place] [address] Jan, [facility] [address] [id number] [address] [place] [address], [place] [address] December, [facility] [address] [id number] [address] [place] [address], [place] [address] December, [facility] [address] [id number] [address] [place] [address], [place] [address] Nov, [facility] [address] [id number] [address] [place] [address], [place] [address] 19 Nov, 2011 [facility] [address] [id number] [address] [place] [address], [place] [address] 18 Nov, 2011 [facility] [address] [id number] [address] [place] [address], [place] [address] 10 Nov, 2011 [facility] [address] [id number] [address] [place] [address], [place] [address] 08 Oct, 2011 [facility] [address] [id number] [address] [place] [address], [place] [address] 29 Sep, 2011 [facility] [address] [id number] [address] [place] [address], [place] [address] 21 Sep, 2011 [facility] [address] [id number] [address] [place] [address], [place] [address] 17 Sep, 2011 [facility] [address] [id number] [address] [place] [address], [place] [address] 17 Sep, 2011 [facility] [address] [id number] [address] [place] [address], [place] [phone] 16 Sep, 2011 [facility] [address] [id number] [address] [place] [address], [place] [address] 16 Sep, 2011 [facility] [address] [id number] [address] [place] [address], [place] [id number] 15 Sep, 2011 [facility] [address] [id number] [address] [place] [address], [place] [address] 15 Sep, 2011 [facility] [address] [id number] [address] [place] [address], [place] [address] Aug, [facility] [address] [id number] [address] [place] [address], [place] [address] Jul, [facility] [address] [id number] [address] [place] [address], [place] [address] Jul, [facility] [address] [id number] [address] [place] [phone] [address], [address] [facility] [address] [id number] [address] [place] [phone] [address] Jun, [address] [facility] [address] [id number] [address] [place] [phone] Jul, [facility] [address] [id number] [address] [place] [phone] Jul, [facility] [address] [id number] [address] [place] [phone] [address], [address] [facility] [address] [id number] [address] [place] [phone] Jul, [facility] [address] [id number] [address] [place] [id number] Jul, [facility] [address] [id number] [address] [place] [phone] May, [facility] [address] [id number] [address] [place] [phone] May, [facility] [address] [id number] [address] [place] [phone] May, [facility] [address] [id number] [address] [place] [id number] [address] Apr, [address] [facility] [address] [id number] [address] [place] [phone] Jun, [facility] [address] [id number] [address] [place] [phone] Jun, [facility] [address] [id number] [address] [place] [id number] 27 May, 2009 [facility] [address] [id number] [address] [place] [id number] 16 Jan, 2009 IMMUNIZATIONS No Known Immunizations SOCIAL HISTORY Never Assessed REASON FOR VISIT EMR-[facility] [place]AN OF CARE VITAL SIGNS MEDICATIONS No [...] History tumor removal left leg Hospitalization History [facility] 03/2012
--- OUTSIDE RECORDS SUMMARY | 2019-11-01 20:28 | XMS REPORT ---
Author Author AnnNyasia Doctor Organization [facility] Address Unknown Phone Unavailable Care Team Providers Care Clinical Massage Therapist Name Role Phone Migration, Doctor Unavailable Unavailable PROBLEMS Type Condition ICD9-CM Code [id number] Code Onset Dates Condition S tatus SNOMED Code Problem Costochondritis 733.6 Active 6410 9004 Problem Grief reaction F43.21 Active 63333 5009 Problem Hyperlipidemia E78.5 Active 78739 004 Problem Unspecified cardiac dysrhythmia 427.9 Active 446893142 Problem Diabetes 250.00 Active 52637611 Problem Type 2 diabetes mellitus without complications E11 .9 Active 83740695 Problem Essential hypertension I10 Active [id number] ALLERGIES No Information ENCOUNTERS Encounter Location Date Diagnosis [place] [address] [place] [id number] [place] [address] Nov, [place] [address] [place] [id number] [place] [address] Nov, [place] [address] [place] [id number] [place] [address] Oct, URI (upper respiratory infec tion) J06.9 ; Type 2 diabetes mellitus without complications E11.9 and Hyperlipidemia E78.5 [place] [address] [place] [address] Aug, [place] [address] [place] [id number] [place] [address] Jun, Acute nasopharyngitis J00 [place] [address] [place] [id number] [place] [address] May, Encounter for immunization Z 23 [place] [address] [place] [id number] [place] [address] Apr, [place] [address] [place] [id number] [place] [address] Apr, Type 2 diabetes mellitus wit hout complications E11.9 [facility] [address] [id number] [address] [place] [address] Apr, Type 2 diabetes mellitus wit hout complications E11.9 ; Grief reaction F43.21 and Essential hypertension I10 [facility] [address] [id number] [address] [place] [address] Mar, Type 2 diabetes mellitus wit hout complications E11.9 [facility] [address] [id number] [address] [place] [address] Mar, Type 2 diabetes mellitus wit hout complications E11.9 [facility] [address] [id number] [address] [place] [address] Feb, [facility] [address] [id number] [address] [place] [address] Jan, [facility] [address] [id number] [address] [place] [address] Nov, Type 2 diabetes mellitus wit hout complications E11.9 [facility] [address] [id number] [address] [place] [address] Oct, [facility] [address] [id number] [address] [place] [address] Oct, Labia irritation N90.89 [facility] [address] [id number] [address] [place] [address] Sep, [facility] [address] [id number] [address] [place] [address] Sep, [facility] [address] [id number] [address] [place] [address] Sep, [facility] [address] [id number] [address] [place] [address] Aug, [facility] [address] [id number] [address] [place] [address] Jul, [facility] [address] [place] [address] Jul, [facility] [address] [address] Mar, Type 2 diabetes mellitus wit hout complications E11.9 ; Acute pain of right knee M25.561 and Essential hypertension I10 [place] [address] [address] Mar, [facility] [address] [address] Mar, Dysuria R30.0 [place] [address] [address] December, [place] [address] [address] Nov, [place] [address] [address] Nov, Dental examination Z01.20 [place] [address] [address] Nov, Dental examination Z01.20 [place] [address] [address] Nov, Non-intractable vomiting wit h nausea, unspecified vomiting type R11.2 ; Arthralgia, unspecified joint M25.50 ; Fever, unspecified fever cause R50.9 ; Type 2 diabetes mellitus without complications E11.9 and Tooth pain K08.89 [place] [address] [place] [address] Nov, Type 2 diabetes mellitus wit hout complications E11.9 [place] [address] [place] [id number] [place] [address] Nov, Type 2 diabetes mellitus wit hout complications E11.9 and Bronchitis J40 [place] [address] [place] [id number] [place] [address] Oct, Type 2 diabetes mellitus wit hout complications E11.9 [facility] [address] [id number] [address] [place] [address] Jul, [facility] [address] [id number] [address] [place] [address] Jul, Dysuria R30.0 ; Hematuria R3 1.9 and Vaginal pain R10.2 [facility] [address] [id number] [address] [place] [address] Jul, Dysuria R30.0 ; Vaginal disc harge N89.8 and Low back strain, initial encounter S39.012A [facility] [address] [id number] [address] [place] [address] Jun, Bacterial conjunctivitis of right eye H10.9 ; Sore throat J02.9 and Acute non-recurrent maxillary sinusitis J01.00 [facility] [address] [id number] [address] [place] [address] Jun, [facility] [address] [id number] [address] [place] [address] May, [facility] [address] [id number] [address] [place] [address] Apr, [facility] [address] [id number] [address] [place] [address] 14 Apr, 2016 [facility] [address] [id number] [address] [place] [address] Apr, [facility] [address] [id number] [address] [place] [address] Apr, Type 2 diabetes mellitus wit hout complications E11.9 [facility] [address] [id number] [address] [place] [address] Mar, [facility] [address] [id number] [address] [place] [address] Feb, Bronchitis J40 [facility] [address] [facility] [id number] [address] [place] [address] Feb, Bronchitis J40 [facility] [address] [facility] [id number] [address] [place] [address] Feb, Type 2 diabetes mellitus wit hout complications E11.9 [facility] [address] [place] [id number] [address] [place] [address] Feb, [facility] [address] [place] [id number] [address] [place] [address] Feb, [facility] [address] [facility] [id number] [address] [place] [address] Feb, Type 2 diabetes mellitus wit hout complications E11.9 and Dysuria R30.0 [facility] [address] [place] [id number] [place] [address] Jan, Type 2 diabetes mellitus wit hout complications E11.9 [facility] [address] [place] [id number] [place] [address] Jan, Type 2 diabetes mellitus wit hout complications E11.9 [facility] [address] [place] [id number] [place] [address] December, Type 2 diabetes mellitus wit hout complications E11.9 [facility] [address] [place] [id number] [place] [address] Nov, Type 2 diabetes mellitus wit hout complications E11.9 [facility] [address] [place] [id number] [place] [address] Oct, Type 2 diabetes mellitus wit hout complications E11.9 ; Fever R50.9 ; Myalgia M79.1 and Cough R05 [facility] [address] [facility] [id number] [address] [place] [address] 15 Sep, 2015 Dysuria R30.0 and Cystitis N 30.90 [facility] [address] [place] [id number] [place] [address] Sep, [facility] [address] [facility] [id number] [address] [place] [address] Sep, [facility] [address] [id number] [address] [place] [id number] Aug, Dental examination Z01.20 [facility] [address] [facility] [id number] [address] [place] [address] Aug, Type 2 diabetes mellitus wit hout complications E11.9 [facility] [address] [facility] [id number] [address] [place] [address] Jul, Dysfunction of left eustachi an tube H69.82 [facility] [address] [facility] [id number] [address] [place] [address] Jun, [facility] [address] [facility] [id number] [address] [place] [address] Jun, Cellulitis L03.90 [facility] [address] [facility] [id number] [address] [place] [address] Jun, [facility] [address] [facility] [id number] [address] [place] [address] Jun, [facility] [address] [place] [id number] [address] [place] [address] Jun, [facility] [address] [facility] [id number] [address] [place] [address] May, Dermatofibroma of ankle, rig ht D23.71 [facility] [address] [facility] [id number] [address] [place] [address] May, [facility] [address] [facility] [id number] [address] [place] [address] Apr, Diabetes 250.00 and 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 [facility] [address] [facility] [id number] [address] [place] [address] Apr, [facility] [address] [facility] [id number] [address] [place] [address] Apr, [facility] [address] [facility] [id number] [address] [place] [address] Apr, Diabetes 250.00 ; Influenza vaccine administered V04.81 and Allergic rhinitis 477.9 [facility] [address] [facility] [id number] [address] [place] [address] Mar, [facility] [address] [place] [id number] [address] [place] [address] Jan, [facility] [address] [facility] [id number] [address] [place] [address] Jan, DM w/o complication type II 250.00 [facility] [address] [place] [id number] [place] [address] December, DM w/o complication type II 250.00 ; Calcaneal spur 726.73 ; Vaginitis due to Amanda 112.1 and Onychomycosis 110.1 [facility] [address] [facility] [id number] [address] [place] [address] 30 Nov, 2014 Amanda infection of genital region 112.2 [facility] [address] [place] [id number] [place] [address] 14 Nov, 2014 [facility] [address] [place] [id number] [place] [address] 13 Nov, 2014 [facility] [address] [facility] [id number] [address] [place] [address] Oct, [facility] [address] [facility] [id number] [address] [place] [address] Oct, [facility] [address] [place] [id number] [address] [place] [address] Sep, [facility] [address] [facility] [id number] [address] [place] [address] Sep, [facility] [address] [place] [id number] [address] [place] [address] Jul, [facility] [address] [id number] [address] [place] [address], [place] [address] Jul, [facility] [address] [id number] [address] [place] [address], [place] [address] Jun, [facility] [address] [id number] [address] [place] [address], [place] [address] Jun, [facility] [address] [id number] [address] [place] [address], [place] [address] Jun, [facility] [address] [id number] [address] [place] [address], [place] [address] Jun, [facility] [address] [id number] [address] [place] [address], [place] [address] May, [facility] [address] [id number] [address] [place] [address], [place] [address] May, [facility] [address] [id number] [address] [place] [address], [place] [address] May, [facility] [address] [id number] [address] [place] [address], [place] [address] May, [facility] [address] [id number] [address] [place] [address], [place] [address] Apr, [facility] [address] [id number] [address] [place] [address], [place] [address] Apr, [facility] [address] [id number] [address] [place] [address], [place] [address] Apr, [facility] [address] [id number] [address] [place] [address], [place] [address] Apr, [facility] [address] [id number] [address] [place] [address], [place] [address] Mar, [facility] [address] [id number] [address] [place] [address], [place] [address] Mar, [facility] [address] [id number] [facility] [place] [address] Mar, [facility] [address] [id number] [address] [place] [address], [place] [address] Mar, [facility] [address] [id number] [address] [place] [address], [place] [address] Mar, [facility] [address] [id number] [address] [place] [address], [place] [address] Mar, [facility] [address] [id number] [address] [place] [address], [place] [address] Mar, [facility] [address] [id number] [address] [place] [address], [place] [address] Mar, [facility] [address] [id number] [address] [place] [address], [place] [address] Mar, [facility] [address] [id number] [address] [place] [address], [place] [address] Mar, [facility] [address] [id number] [address] [place] [address], [place] [address] Mar, [facility] [address] [id number] [address] [place] [address], [place] [address] Mar, [facility] [address] [id number] [address] [place] [address], [place] [address] Feb, [facility] [address] [id number] [address] [place] [address], [place] [address] Feb, [facility] [address] [id number] [address] [place] [address], [place] [address] Jan, [facility] [address] [id number] [address] [place] [address], [place] [address] Jan, [facility] [address] [id number] [address] [place] [address], [place] [address] Jan, [facility] [address] [id number] [address] [place] [address], [place] [address] Jan, [facility] [address] [id number] [facility] [place] [address] December, [facility] [address] [id number] [facility] [place] [address] December, [facility] [address] [id number] [address] [place] [address], [place] [address] December, [facility] [address] [id number] [address] [place] [address], [place] [address] December, [facility] [address] [id number] [address] [place] [address], [place] [address] Nov, [facility] [address] [id number] [address] [place] [address], [place] [address] Nov, [facility] [address] [id number] [address] [place] [address], [place] [address] Nov, [facility] [address] [id number] [address] [place] [address], [place] [address] Nov, [facility] [address] [id number] [address] [place] [address], [place] [address] Nov, [facility] [address] [id number] [address] [place] [address], [place] [address] Nov, [facility] [address] [id number] [address] [place] [address], [place] [address] Nov, [facility] [address] [id number] [address] [place] [address], [place] [address] Oct, [facility] [address] [id number] [address] [place] [address], [place] [address] 31 Oct, 2013 [facility] [address] [id number] [address] [place] [address], [place] [address] 28 Oct, 2013 [facility] [address] [id number] [address] [place] [address], [place] [address] 13 Oct, 2013 [facility] [address] [id number] [address] [place] [address], [place] [address] Oct, [facility] [address] [id number] [address] [place] [address], [place] [address] Oct, [facility] [address] [id number] [address] [place] [address], [place] [address] Oct, [facility] [address] [id number] [address] [place] [address], [place] [address] Sep, [facility] [address] [id number] [address] [place] [address], [place] [address] Sep, [facility] [address] [id number] [address] [place] [address], [place] [address] Sep, [facility] [address] [id number] [address] [place] [address], [place] [address] Sep, [facility] [address] [id number] [address] [place] [address], [place] [address] Aug, [facility] [address] [id number] [address] [place] [address], [place] [address] Aug, [facility] [address] [id number] [address] [place] [address], [place] [address] Aug, [facility] [address] [id number] [address] [place] [address], [place] [address] Aug, [facility] [address] [id number] [address] [place] [address], [place] [address] Jul, [facility] [address] [id number] [address] [place] [address], [place] [address] Jul, [facility] [address] [id number] [address] [place] [address], [place] [address] Apr, [facility] [address] [id number] [address] [place] [address], [place] [address] Apr, [facility] [address] [id number] [address] [place] [address], [place] [address] Mar, [facility] [address] [id number] [facility] [place] [address] Mar, [facility] [address] [id number] [address] [place] [address], [place] [address] Mar, [facility] [address] [id number] [address] [place] [address], [place] [address] Mar, [facility] [address] [id number] [address] [place] [address], [place] [address] Mar, [facility] [address] [id number] [address] [place] [address], [place] [address] Mar, [facility] [address] [id number] [address] [place] [address], [place] [id number] Mar, [facility] [address] [id number] [address] [place] [address], [place] [address] Mar, [facility] [address] [id number] [address] [place] [address], [place] [address] Mar, [facility] [address] [id number] [address] [place] [address], [place] [address] Mar, [facility] [address] [id number] [address] [place] [address], [place] [id number] Feb, [facility] [address] [id number] [address] [place] [address], [place] [id number] Feb, [facility] [address] [id number] [address] [place] [address], [place] [id number] Feb, [facility] [address] [id number] [address] [place] [address], [place] [id number] Feb, [facility] [address] [id number] [address] [place] [address], [place] [id number] Jan, [facility] [address] [id number] [address] [place] [address], [place] [id number] Nov, [facility] [address] [id number] [address] [place] [address], [place] [id number] 16 Nov, 2012 [facility] [address] [id number] [address] [place] [address], [place] [id number] Nov, [facility] [address] [id number] [address] [place] [address], [place] [id number] Nov, [facility] [address] [id number] [address] [place] [address], [place] [id number] Oct, [facility] [address] [id number] [address] [place] [address], [place] [id number] Sep, [facility] [address] [id number] [address] [place] [address], [place] [id number] Sep, [facility] [address] [id number] [address] [place] [address], [place] [id number] Aug, [facility] [address] [id number] [address] [place] [address], [place] [id number] Jul, [facility] [address] [id number] [address] [place] [address], [place] [id number] Jul, [facility] [address] [id number] [address] [place] [address], [place] [id number] May, [facility] [address] [id number] [address] [place] [address], [place] [id number] May, [facility] [address] [id number] [address] [place] [address], [place] [id number] May, [facility] [address] [id number] [address] [place] [address], [place] [id number] May, [facility] [address] [id number] [address] [place] [address], [place] [id number] Apr, [facility] [address] [id number] [address] [place] [address], [place] [id number] Mar, [facility] [address] [id number] [address] [place] [address], [place] [id number] Mar, [facility] [address] [id number] [address] [place] [address], [place] [id number] 16 Mar, 2012 [facility] [address] [id number] [address] [place] [address], [place] [id number] Mar, [facility] [address] [id number] [address] [place] [address], [place] [id number] Mar, [facility] [address] [id number] [address] [place] [address], [place] [id number] Mar, [facility] [address] [id number] [address] [place] [address], [place] [id number] Mar, [facility] [address] [id number] [address] [place] [address], [place] [id number] Mar, [facility] [address] [id number] [address] [place] [address], [place] [id number] Feb, [facility] [address] [id number] [address] [place] [address], [place] [id number] Feb, [facility] [address] [id number] [address] [place] [address], [place] [id number] Jan, [facility] [address] [id number] [address] [place] [address], [place] [id number] December, [facility] [address] [id number] [address] [place] [address], [place] [id number] December, [facility] [address] [id number] [address] [place] [address], [place] [id number] Nov, [facility] [address] [id number] [address] [place] [address], [place] [id number] Nov, [facility] [address] [id number] [address] [place] [address], [place] [id number] 18 Nov, 2011 [facility] [address] [id number] [address] [place] [address], [place] [id number] Nov, [facility] [address] [id number] [address] [place] [address], [place] [id number] Oct, [facility] [address] [id number] [address] [place] [address], [place] [id number] 29 Sep, 2011 [facility] [address] [id number] [address] [place] [address], [place] [id number] 21 Sep, 2011 [facility] [address] [id number] [address] [place] [address], [place] [id number] 17 Sep, 2011 [facility] [address] [id number] [address] [place] [address], [place] [id number] 17 Sep, 2011 [facility] [address] [id number] [address] [place] [address], [place] [id number] 16 Sep, 2011 [facility] [address] [id number] [address] [place] [address], [place] [id number] 16 Sep, 2011 [facility] [address] [id number] [address] [place] [address], [place] [id number] 15 Sep, 2011 [facility] [address] [id number] [address] [place] [address], [place] [id number] 15 Sep, 2011 [facility] [address] [id number] [address] [place] [address], [place] [id number] Aug, [facility] [address] [id number] [address] [place] [address], [place] [id number] Jul, [facility] [address] [id number] [address] [place] [address], [place] [id number] Jul, [facility] [address] [id number] [address] [place] [address], [place] [id number] Jul, [facility] [address] [id number] [address] [place] [address], [place] [id number] Jun, [facility] [address] [id number] [address] [place] [address], [place] [id number] Jul, [facility] [address] [id number] [address] [place] [address], [place] [id number] Jul, [facility] [address] [id number] [address] [place] [id number] 16 Jul, 2010 [facility] [address] [id number] [address] [place] [id number] Jul, [facility] [address] [id number] [address] [place] [id number] Jul, [facility] [address] [id number] [address] [place] [id number] May, [facility] [address] [id number] [address] [place] [id number] May, [facility] [address] [id number] [address] [place] [id number] May, [facility] [address] [id number] [address] [place] [id number] Apr, [facility] [address] [id number] [address] [place] [id number] Jun, [facility] [address] [id number] [address] [place] [id number] Jun, [facility] [address] [id number] [address] [place] [id number] May, [facility] [address] [id number] [address] [place] [id number] Jan, IMMUNIZATIONS No Known Immunizations SOCIAL HISTORY Never Assessed REASON FOR VISIT [place] [place] VITAL SIGNS MEDICATIONS Unknown [...]
--- OUTSIDE RECORDS SUMMARY | 2019-11-01 20:28 | XMS REPORT ---
Author Author Nyasia RUIZ Organization [facility] Address [address] [place] [address] Care Team Providers Care Bereavement Coordinator Name Role Phone IRVIN RUIZ Unavailable PROBLEMS Type Condition ICD9-CM Code [id number] Code Onset Dates Condition S tatus SNOMED Code Problem Costochondritis 733.6 Active 6410 9004 Problem Grief reaction F43.21 Active 43487 5009 Problem Hyperlipidemia E78.5 Active 98307 004 Problem Unspecified cardiac dysrhythmia 427.9 Active 580833068 Problem Diabetes 250.00 Active 06413951 Problem Type 2 diabetes mellitus without complications E11 .9 Active 37479541 Problem Essential hypertension I10 Active [id number] ALLERGIES No Information ENCOUNTERS Encounter Location Date Diagnosis [place] [address] [place] [id number] [place] [address] December, Insect bite (nonvenomous), l eft thigh, initial encounter S70.362A ; Local infection of the skin and subcutaneous tissue, unspecified L08.9 and Bitten or stung by nonvenomous insect and other nonvenomous arthropods, initial encounter W57.XXXA [place] [address] [place] [id number] [place] [address] December, [place] [address] [place] [id number] [place] [address] Nov, [place] [address] [address] Nov, [place] [address] [place] [id number] [place] [address] Oct, URI (upper respiratory infec tion) J06.9 ; Type 2 diabetes mellitus without complications E11.9 and Hyperlipidemia E78.5 [facility] [address] [facility] [id number] [address] [place] [address] 08 Aug, 2018 [facility] [address] [facility] [id number] [address] [place] [address] Jun, Acute nasopharyngitis J00 [facility] [address] [facility] [id number] [address] [place] [address] 23 May, 2018 Encounter for immunization Z 23 [facility] [address] [facility] [id number] [address] [place] [address] 20 Apr, 2018 [facility] [address] [facility] [id number] [address] [place] [address] Apr, Type 2 diabetes mellitus wit hout complications E11.9 [facility] [address] [facility] [id number] [address] [place] [address] Apr, Type 2 diabetes mellitus wit hout complications E11.9 ; Grief reaction F43.21 and Essential hypertension I10 [facility] [address] [facility] [id number] [address] [place] [address] Mar, Type 2 diabetes mellitus wit hout complications E11.9 [facility] [address] [facility] [id number] [address] [place] [address] Mar, Type 2 diabetes mellitus wit hout complications E11.9 [facility] [address] [facility] [id number] [address] [place] [address] Feb, [facility] [address] [facility] [id number] [address] [place] [address] Jan, [facility] [address] [facility] [id number] [address] [place] [address] Nov, Type 2 diabetes mellitus wit hout complications E11.9 [facility] [address] [facility] [id number] [address] [place] [address] Oct, [facility] [address] [facility] [id number] [address] [place] [address] Oct, Labia irritation N90.89 [facility] [address] [id number] [address] [place] [address] Sep, [facility] [address] [id number] [address] [place] [address] Sep, [facility] [address] [id number] [address] [place] [address] Sep, [facility] [address] [id number] [address] [place] [address] Aug, [facility] [address] [id number] [address] [place] [address] Jul, [facility] [address] [id number] [address] [place] [address] Jul, [facility] [address] [facility] [id number] [address] [place] [address] Mar, Type 2 diabetes mellitus wit hout complications E11.9 ; Acute pain of right knee M25.561 and Essential hypertension I10 [facility] [address] [facility] [id number] [address] [place] [address] Mar, [facility] [address] [facility] [id number] [address] [place] [address] Mar, Dysuria R30.0 [facility] [address] [facility] [id number] [address] [place] [address] December, [facility] [address] [facility] [id number] [address] [place] [address] Nov, [facility] [address] [facility] [id number] [address] [place] [address] Nov, Dental examination Z01.20 [facility] [address] [facility] [id number] [address] [place] [address] Nov, Dental examination Z01.20 [facility] [address] [facility] [id number] [address] [place] [address] Nov, Non-intractable vomiting wit h nausea, unspecified vomiting type R11.2 ; Arthralgia, unspecified joint M25.50 ; Fever, unspecified fever cause R50.9 ; Type 2 diabetes mellitus without complications E11.9 and Tooth pain K08.89 [facility] [address] [id number] [address] [place] [address] Nov, Type 2 diabetes mellitus wit hout complications E11.9 [place] [address] [id number] [address] [place] [address] Nov, Type 2 diabetes mellitus wit hout complications E11.9 and Bronchitis J40 [place] [address] [id number] [address] [place] [address] Oct, Type 2 diabetes mellitus wit hout complications E11.9 [place] [address] [id number] [address] [place] [address] Jul, [place] [address] [facility] [id number] [address] [place] [address] Jul, Dysuria R30.0 ; Hematuria R3 1.9 and Vaginal pain R10.2 [place] [address] [facility] [id number] [address] [place] [address] Jul, Dysuria R30.0 ; Vaginal disc harge N89.8 and Low back strain, initial encounter S39.012A [place] [address] [facility] [id number] [address] [place] [address] Jun, Bacterial conjunctivitis of right eye H10.9 ; Sore throat J02.9 and Acute non-recurrent maxillary sinusitis J01.00 [place] [address] [id number] [address] [place] [address] Jun, [place] [address] [facility] [id number] [address] [place] [address] May, [place] [address] [facility] [id number] [address] [place] [address] Apr, [place] [address] [id number] [address] [place] [phone] 14 Apr, 2016 [facility] [address] [id number] [address] [place] [address] Apr, [facility] [address] [id number] [address] [place] [address] Apr, Type 2 diabetes mellitus wit hout complications E11.9 [facility] [address] [id number] [address] [place] [address] Mar, [facility] [address] [id number] [address] [place] [address] Feb, Bronchitis J40 [facility] [address] [id number] [address] [place] [address] Feb, Bronchitis J40 [facility] [address] [id number] [address] [place] [address] Feb, Type 2 diabetes mellitus wit hout complications E11.9 [facility] [address] [id number] [address] [place] [phone] Feb, [facility] [address] [id number] [address] [place] [address] Feb, [facility] [address] [id number] [address] [place] [address] Feb, Type 2 diabetes mellitus wit hout complications E11.9 and Dysuria R30.0 [facility] [address] [id number] [address] [place] [address] Jan, Type 2 diabetes mellitus wit hout complications E11.9 [facility] [address] [id number] [address] [place] [address] 14 Jan, 2016 Type 2 diabetes mellitus wit hout complications E11.9 [facility] [address] [id number] [address] [place] [address] December, Type 2 diabetes mellitus wit hout complications E11.9 [facility] [address] [id number] [address] [place] [address] Nov, Type 2 diabetes mellitus wit hout complications E11.9 [facility] [address] [address] Oct, Type 2 diabetes mellitus wit hout complications E11.9 ; Fever R50.9 ; Myalgia M79.1 and Cough R05 [facility] [address] [place] [id number] [place] [address] Sep, Dysuria R30.0 and Cystitis N 30.90 [facility] [address] [place] [id number] [address] [place] [phone] Sep, [facility] [address] [address] Sep, [facility] [address] [place] [id number] [address] [place] [id number] Aug, Dental examination Z01.20 [facility] [address] [place] [id number] [place] [address] Aug, Type 2 diabetes mellitus wit hout complications E11.9 [facility] [address] [address] Jul, Dysfunction of left eustachi an tube H69.82 [facility] [address] [place] [id number] [place] [address] Jun, [facility] [address] [place] [id number] [place] [address] Jun, Cellulitis L03.90 [facility] [address] [place] [id number] [address] [place] [address] Jun, [facility] [address] [address] Jun, [facility] [address] [place] [id number] [place] [address] Jun, [facility] [address] [address] May, Dermatofibroma of ankle, rig ht D23.71 [place] [address] [address] May, [place] [address] [place] [id number] [place] [address] 29 Apr, 2015 Diabetes 250.00 and 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 [place] [address] [address] Apr, [place] [address] [address] Apr, [place] [address] [address] 15 Apr, 2015 Diabetes 250.00 ; Influenza vaccine administered V04.81 and Allergic rhinitis 477.9 [place] [address] [address] Mar, [place] [address] [address] Jan, [place] [address] [address] Jan, DM w/o complication type II 250.[address] [address] December, DM w/o complication type II 250.00 ; Calcaneal spur 726.73 ; Vaginitis due to Amanda 112.1 and Onychomycosis 110.1 [place] [address] [id number] 30 Nov, 2014 Amanda infection of genital region 112.2 [place] [address] [address] 14 Nov, 2014 [place] [address] [address] Nov, [facility] [address] [id number] [address] [place] [address], [place] [address] Oct, [facility] [address] [id number] [address] [place] [address], [place] [address] Oct, [facility] [address] [id number] [address] [place] [address], [place] [address] Sep, [facility] [address] [id number] [address] [place] [address], [place] [address] Sep, [facility] [address] [id number] [address] [place] [address], [place] [address] Jul, [facility] [address] [id number] [address] [place] [address], [place] [address] Jul, [facility] [address] [id number] [address] [place] [address], [place] [address] Jun, [facility] [address] [id number] [address] [place] [address], [place] [address] Jun, [facility] [address] [id number] [address] [place] [address], [place] [address] Jun, [facility] [address] [id number] [address] [place] [address], [place] [address] Jun, [facility] [address] [id number] [address] [place] [address], [place] [address] May, [facility] [address] [id number] [address] [place] [address] May, [facility] [address] [id number] [address] [place] [address], [place] [address] May, [facility] [address] [id number] [address] [place] [address], [place] [address] May, [facility] [address] [id number] [address] [place] [address], [place] [address] Apr, [facility] [address] [id number] [address] [place] [address], [place] [address] Apr, [facility] [address] [id number] [address] [place] [address], [place] [address] Apr, [facility] [address] [id number] [address] [place] [address], [place] [address] Apr, [facility] [address] [id number] [address] [place] [address], [place] [address] Mar, [facility] [address] [id number] [address] [place] [address], [place] [address] Mar, [facility] [address] [id number] [address] [place] [address], [place] [address] Mar, [facility] [address] [id number] [address] [place] [address], [place] [address] Mar, [facility] [address] [id number] [address] [place] [address], [place] [address] Mar, [facility] [address] [id number] [address] [place] [address], [place] [address] Mar, [facility] [address] [id number] [address] [place] [address], [place] [address] Mar, [facility] [address] [id number] [address] [place] [address], [place] [address] Mar, [facility] [address] [id number] [address] [place] [address], [place] [address] Mar, [facility] [address] [id number] [address] [place] [address], [place] [address] Mar, [facility] [address] [id number] [address] [place] [address], [place] [address] Mar, [facility] [address] [id number] [address] [place] [address], [place] [address] Mar, [facility] [address] [id number] [address] [place] [address], [place] [address] Feb, [facility] [address] [id number] [address] [place] [address], [place] [address] Feb, [facility] [address] [id number] [facility] [place] [address] Jan, [facility] [address] [id number] [address] [place] [address], [place] [address] Jan, [facility] [address] [id number] [address] [place] [address], [place] [address] Jan, [facility] [address] [id number] [address] [place] [address], [place] [address] Jan, [facility] [address] [id number] [address] [place] [address], [place] [address] December, [facility] [address] [id number] [address] [place] [address], [place] [address] December, [facility] [address] [id number] [address] [place] [address], [place] [address] December, [facility] [address] [id number] [address] [place] [address], [place] [address] December, [facility] [address] [id number] [address] [place] [address], [place] [address] Nov, [facility] [address] [id number] [address] [place] [address], [place] [address] Nov, [facility] [address] [id number] [address] [place] [address], [place] [address] Nov, [facility] [address] [id number] [address] [place] [address], [place] [address] Nov, [facility] [address] [id number] [address] [place] [address], [place] [address] Nov, [facility] [address] [id number] [address] [place] [address], [place] [address] Nov, [facility] [address] [id number] [address] [place] [address], [place] [address] Nov, [facility] [address] [id number] [address] [place] [address], [place] [address] Oct, [facility] [address] [id number] [address] [place] [address], [place] [address] Oct, [facility] [address] [id number] [address] [place] [address], [place] [address] Oct, [facility] [address] [id number] [address] [place] [address], [place] [address] Oct, [facility] [address] [id number] [address] [place] [address], [place] [address] Oct, [facility] [address] [id number] [address] [place] [address], [place] [address] Oct, [facility] [address] [id number] [address] [place] [address], [place] [address] Oct, [facility] [address] [id number] [address] [place] [address], [place] [address] 07 Sep, 2013 [facility] [address] [id number] [address] [place] [address], [place] [address] 07 Sep, 2013 [facility] [address] [id number] [address] [place] [address], [place] [address] Sep, [facility] [address] [id number] [address] [place] [address], [place] [address] Sep, [facility] [address] [id number] [address] [place] [address], [place] [address] Aug, [facility] [address] [id number] [address] [place] [address], [place] [address] Aug, [facility] [address] [id number] [address] [place] [address], [place] [address] Aug, [facility] [address] [id number] [address] [place] [address], [place] [address] Aug, [facility] [address] [id number] [address] [place] [address], [place] [address] 16 Jul, 2013 [facility] [address] [id number] [address] [place] [address], [place] [address] Jul, [facility] [address] [id number] [address] [place] [address], [place] [address] Apr, [facility] [address] [id number] [address] [place] [address], [place] [address] Apr, [facility] [address] [id number] [address] [place] [address], [place] [address] Mar, [facility] [address] [id number] [address] [place] [address], [place] [address] Mar, [facility] [address] [id number] [address] [place] [address], [place] [address] Mar, [facility] [address] [id number] [address] [place] [address], [place] [address] Mar, [facility] [address] [id number] [address] [place] [address], [place] [address] Mar, [facility] [address] [id number] [address] [place] [address], [place] [address] Mar, [facility] [address] [id number] [address] [place] [address], [place] [address] Mar, [facility] [address] [id number] [address] [place] [address], [place] [address] Mar, [facility] [address] [id number] [address] [place] [address], [place] [address] Mar, [facility] [address] [id number] [address] [place] [address], [place] [address] Mar, [facility] [address] [id number] [address] [place] [address], [place] [address] Feb, [facility] [address] [id number] [address] [place] [address], [place] [address] Feb, [facility] [address] [id number] [address] [place] [address], [place] [address] 18 Feb, 2013 [facility] [address] [id number] [address] [place] [address], [place] [address] 08 Feb, 2013 [facility] [address] [id number] [address] [place] [address], [place] [address] Jan, [facility] [address] [id number] [address] [place] [address], [place] [address] 25 Nov, 2012 [facility] [address] [id number] [address] [place] [address], [place] [address] 16 Nov, 2012 [facility] [address] [id number] [address] [place] [address], [place] [address] 15 Nov, 2012 [facility] [address] [id number] [address] [place] [address], [place] [address] Nov, [facility] [address] [id number] [address] [place] [address], [place] [address] Oct, [facility] [address] [id number] [address] [place] [address], [place] [address] Sep, [facility] [address] [id number] [address] [place] [address], [place] [address] Sep, [facility] [address] [id number] [address] [place] [address], [place] [address] Aug, [facility] [address] [id number] [address] [place] [address], [place] [address] Jul, [facility] [address] [id number] [address] [place] [address], [place] [address] Jul, [facility] [address] [id number] [address] [place] [address], [place] [address] May, [facility] [address] [id number] [address] [place] [address], [place] [address] May, [facility] [address] [id number] [address] [place] [address], [place] [address] May, [facility] [address] [id number] [address] [place] [address], [place] [address] May, [facility] [address] [id number] [address] [place] [address], [place] [address] Apr, [facility] [address] [id number] [address] [place] [address], [place] [address] Mar, [facility] [address] [id number] [address] [place] [address], [place] [address] Mar, [facility] [address] [id number] [address] [place] [address], [place] [address] Mar, [facility] [address] [id number] [address] [place] [address], [place] [address] Mar, [facility] [address] [id number] [address] [place] [address], [place] [address] Mar, [facility] [address] [id number] [address] [place] [address], [place] [address] Mar, [facility] [address] [id number] [address] [place] [address], [place] [address] Mar, [facility] [address] [address] [id number] [address] [place] [address], [place] [address] Mar, [facility] [address] [id number] [address] [place] [address], [place] [address] Feb, [facility] [address] [id number] [address] [place] [address], [place] [address] Feb, [facility] [address] [id number] [address] [place] [address], [place] [address] Jan, [facility] [address] [id number] [address] [place] [address], [place] [address] December, [facility] [address] [id number] [address] [place] [address], [place] [address] December, [facility] [address] [id number] [address] [place] [address], [place] [address] 23 Nov, 2011 [facility] [address] [id number] [address] [place] [address], [place] [address] Nov, [facility] [address] [id number] [address] [place] [address], [place] [id number] 18 Nov, 2011 [facility] [address] [id number] [address] [place] [address], [place] [address] Nov, [facility] [address] [id number] [address] [place] [address], [place] [address] 08 Oct, 2011 [facility] [address] [id number] [address] [place] [address], [place] [address] 29 Sep, 2011 [facility] [address] [id number] [address] [place] [address], [place] [address] 21 Sep, 2011 [facility] [address] [id number] [address] [place] [address], [place] [address] 17 Sep, 2011 [facility] [address] [id number] [address] [place] [address], [place] [address] 17 Sep, 2011 [facility] [address] [id number] [address] [place] [address], [place] [address] 16 Sep, 2011 [facility] [address] [id number] [address] [place] [address], [place] [address] 16 Sep, 2011 [facility] [address] [id number] [address] [place] [address], [place] [address] 15 Sep, 2011 [facility] [address] [id number] [address] [place] [address], [place] [address] 15 Sep, 2011 [facility] [address] [id number] [address] [place] [address], [place] [address] Aug, [facility] [address] [id number] [address] [place] [address], [place] [address] Jul, [facility] [address] [id number] [address] [place] [address], [place] [address] 14 Jul, 2011 [facility] [address] [id number] [address] [place] [address], [place] [address] 14 Jul, 2011 [facility] [address] [id number] [address] [place] [address], [place] [address] 08 Jun, 2011 [facility] [address] [id number] [address] [place] [address], [place] [address] 21 Jul, 2010 [facility] [address] [id number] [address] [place] [address], [place] [address] 21 Jul, 2010 [facility] [address] [id number] [address] [place] [address], [place] [address] 16 Jul, 2010 [facility] [address] [id number] [address] [place] [address], [place] [address] 02 Jul, 2010 [facility] [address] [id number] [address] [place] [address], [place] [address] Jul, [facility] [address] [id number] [address] [place] [address], [place] [address] 28 May, 2010 [facility] [address] [id number] [address] [place] [address], [place] [address] May, [facility] [address] [id number] [address] [place] [id number] May, [facility] [address] [id number] [address] [place] [address], [place] [address] 15 Apr, 2010 [facility] [address] [id number] [address] [place] [id number] 13 Jun, 2009 [facility] [address] [id number] [address] [place] [id number] 13 Jun, 2009 [facility] [address] [id number] [address] [place] [id number] 27 May, 2009 [facility] [address] [id number] [address] [place] [id number] 16 Jan, 2009 IMMUNIZATIONS No Known Immunizations [...] History tumor removal left leg Hospitalization History [facility] 03/2012
--- OUTSIDE RECORDS SUMMARY | 2019-11-01 20:28 | XMS REPORT ---
Author Author Nyasia RUIZ Organization [facility] [place] Address [address] [place] [address] Care Team Providers Care Short Haul Driver Name Role Phone IRVIN RUIZ Unavailable PROBLEMS Type Condition ICD9-CM Code [id number] Code Onset Dates Condition S tatus SNOMED Code Problem Costochondritis 733.6 Active 6410 9004 Problem Grief reaction F43.21 Active 33632 5009 Problem Hyperlipidemia E78.5 Active 14824 004 Problem Unspecified cardiac dysrhythmia 427.9 Active 995551718 Problem Diabetes 250.00 Active 65168809 Problem Type 2 diabetes mellitus without complications E11 .9 Active 01917459 Problem Essential hypertension I10 Active 33750820 ALLERGIES No Information ENCOUNTERS Encounter Location Date Diagnosis [place] [address] [place] [id number] [place] [address] December, Insect bite (nonvenomous), l eft thigh, initial encounter S70.362A ; Local infection of the skin and subcutaneous tissue, unspecified L08.9 and Bitten or stung by nonvenomous insect and other nonvenomous arthropods, initial encounter W57.XXXA [place] [address] [place] [id number] [place] [address] December, [place] [address] [place] [id number] [place] [address] Nov, [place] [address] [address] Nov, [place] [address] [place] [id number] [place] [address] Oct, URI (upper respiratory infec tion) J06.9 ; Type 2 diabetes mellitus without complications E11.9 and Hyperlipidemia E78.5 [facility] [place] [address] [facility] [id number] [address] [place] [address] 08 Aug, 2018 [facility] [place] [address] [facility] [id number] [address] [place] [address] Jun, Acute nasopharyngitis J00 [facility] [place] [address] [facility] [id number] [address] [place] [address] 23 May, 2018 Encounter for immunization Z 23 [facility] [place] [address] [facility] [id number] [address] [place] [address] 20 Apr, 2018 [facility] [place] [address] [facility] [id number] [address] [place] [address] Apr, Type 2 diabetes mellitus wit hout complications E11.9 [facility] [place] [address] [facility] [id number] [address] [place] [address] Apr, Type 2 diabetes mellitus wit hout complications E11.9 ; Grief reaction F43.21 and Essential hypertension I10 [facility] [place] [address] [facility] [id number] [address] [place] [address] Mar, Type 2 diabetes mellitus wit hout complications E11.9 [facility] [place] [address] [facility] [id number] [address] [place] [address] Mar, Type 2 diabetes mellitus wit hout complications E11.9 [facility] [place] [address] [facility] [id number] [address] [place] [address] Feb, [facility] [place] [address] [facility] [id number] [address] [place] [address] Jan, [facility] [place] [address] [facility] [id number] [address] [place] [address] Nov, Type 2 diabetes mellitus wit hout complications E11.9 [facility] [place] [address] [facility] [id number] [address] [place] [address] Oct, [facility] [place] [address] [facility] [id number] [address] [place] [address] Oct, Labia irritation N90.89 [facility] [place] [address] [id number] [address] [place] [address] Sep, [facility] [place] [address] [id number] [address] [place] [address] Sep, [facility] [place] [address] [id number] [address] [place] [address] Sep, [facility] [place] [address] [id number] [address] [place] [address] Aug, [facility] [place] [address] [id number] [address] [place] [address] Jul, [facility] [place] [address] [id number] [address] [place] [address] Jul, [facility] [place] [address] [facility] [id number] [address] [place] [address] Mar, Type 2 diabetes mellitus wit hout complications E11.9 ; Acute pain of right knee M25.561 and Essential hypertension I10 [facility] [place] [address] [facility] [id number] [address] [place] [address] Mar, [facility] [place] [address] [facility] [id number] [address] [place] [address] Mar, Dysuria R30.0 [facility] [place] [address] [facility] [id number] [address] [place] [address] December, [facility] [place] [address] [facility] [id number] [address] [place] [address] Nov, [facility] [place] [address] [facility] [id number] [address] [place] [address] Nov, Dental examination Z01.20 [facility] [place] [address] [facility] [id number] [address] [place] [address] Nov, Dental examination Z01.20 [facility] [place] [address] [facility] [id number] [address] [place] [address] Nov, Non-intractable vomiting wit h nausea, unspecified vomiting type R11.2 ; Arthralgia, unspecified joint M25.50 ; Fever, unspecified fever cause R50.9 ; Type 2 diabetes mellitus without complications E11.9 and Tooth pain K08.89 [facility] [place] [address] [id number] [address] [place] [address] Nov, Type 2 diabetes mellitus wit hout complications E11.9 [place] [address] [id number] [address] [place] [address] Nov, Type 2 diabetes mellitus wit hout complications E11.9 and Bronchitis J40 [place] [address] [id number] [address] [place] [address] Oct, Type 2 diabetes mellitus wit hout complications E11.9 [place] [address] [id number] [address] [place] [address] Jul, [place] [address] [facility] [id number] [address] [place] [address] Jul, Dysuria R30.0 ; Hematuria R3 1.9 and Vaginal pain R10.2 [place] [address] [facility] [id number] [address] [place] [address] Jul, Dysuria R30.0 ; Vaginal disc harge N89.8 and Low back strain, initial encounter S39.012A [place] [address] [facility] [id number] [address] [place] [address] Jun, Bacterial conjunctivitis of right eye H10.9 ; Sore throat J02.9 and Acute non-recurrent maxillary sinusitis J01.00 [place] [address] [id number] [address] [place] [address] Jun, [place] [address] [facility] [id number] [address] [place] [address] May, [place] [address] [facility] [id number] [address] [place] [address] Apr, [place] [address] [id number] [address] [place] [address] 14 Apr, 2016 [facility] [place] [address] [id number] [address] [place] [address] Apr, [facility] [place] [address] [id number] [address] [place] [address] Apr, Type 2 diabetes mellitus wit hout complications E11.9 [facility] [place] [address] [id number] [address] [place] [address] Mar, [facility] [place] [address] [id number] [address] [place] [address] Feb, Bronchitis J40 [facility] [place] [address] [id number] [address] [place] [address] Feb, Bronchitis J40 [facility] [place] [address] [id number] [address] [place] [address] Feb, Type 2 diabetes mellitus wit hout complications E11.9 [facility] [place] [address] [id number] [address] [place] [address] Feb, [facility] [place] [address] [id number] [address] [place] [address] Feb, [facility] [place] [address] [id number] [address] [place] [address] Feb, Type 2 diabetes mellitus wit hout complications E11.9 and Dysuria R30.0 [facility] [place] [address] [id number] [address] [place] [address] Jan, Type 2 diabetes mellitus wit hout complications E11.9 [facility] [place] [address] [id number] [address] [place] [address] 14 Jan, 2016 Type 2 diabetes mellitus wit hout complications E11.9 [facility] [place] [address] [id number] [address] [place] [address] December, Type 2 diabetes mellitus wit hout complications E11.9 [facility] [place] [address] [id number] [address] [place] [address] Nov, Type 2 diabetes mellitus wit hout complications E11.9 [facility] [place] [address] [address] Oct, Type 2 diabetes mellitus wit hout complications E11.9 ; Fever R50.9 ; Myalgia M79.1 and Cough R05 [facility] [place] [address] [place] [id number] [place] [address] Sep, Dysuria R30.0 and Cystitis N 30.90 [facility] [place] [address] [place] [id number] [address] [place] [address] Sep, [facility] [place] [address] [address] Sep, [facility] [address] [place] [id number] [address] [place] [id number] Aug, Dental examination Z01.20 [facility] [place] [address] [place] [id number] [place] [address] Aug, Type 2 diabetes mellitus wit hout complications E11.9 [facility] [place] [address] [address] Jul, Dysfunction of left eustachi an tube H69.82 [facility] [place] [address] [place] [id number] [place] [address] Jun, [facility] [place] [address] [place] [id number] [place] [address] Jun, Cellulitis L03.90 [facility] [place] [address] [place] [id number] [address] [place] [address] Jun, [facility] [place] [address] [address] Jun, [facility] [place] [address] [place] [id number] [place] [address] Jun, [facility] [place] [address] [address] May, Dermatofibroma of ankle, rig ht D23.71 [place] [address] [address] May, [place] [address] [place] [id number] [place] [address] 29 Apr, 2015 Diabetes 250.00 and 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 [place] [address] [address] Apr, [place] [address] [address] Apr, [place] [address] [address] 15 Apr, 2015 Diabetes 250.00 ; Influenza vaccine administered V04.81 and Allergic rhinitis 477.9 [place] [address] [address] Mar, [place] [address] [address] Jan, [place] [address] [address] Jan, DM w/o complication type II 250.[address] [address] December, DM w/o complication type II 250.00 ; Calcaneal spur 726.73 ; Vaginitis due to Amanda 112.1 and Onychomycosis 110.1 [place] [address] [address] 30 Nov, 2014 Amanda infection of genital region 112.2 [place] [address] [id number] 14 Nov, 2014 [place] [address] [address] Nov, [facility] [address] [id number] [address] [place] [address], [place] [address] Oct, [facility] [address] [id number] [address] [place] [address], [place] [address] Oct, [facility] [address] [id number] [address] [place] [address], [place] [address] Sep, [facility] [address] [id number] [address] [place] [address], [place] [address] Sep, [facility] [address] [id number] [address] [place] [address], [place] [address] Jul, [facility] [address] [id number] [address] [place] [address], [place] [address] Jul, [facility] [address] [id number] [address] [place] [address], [place] [address] Jun, [facility] [address] [id number] [address] [place] [address], [place] [address] Jun, [facility] [address] [id number] [address] [place] [address], [place] [address] Jun, [facility] [address] [id number] [address] [place] [address], [place] [address] Jun, [facility] [address] [id number] [address] [place] [address], [place] [address] May, [facility] [address] [id number] [address] [place] [address] May, [facility] [address] [id number] [address] [place] [address], [place] [address] May, [facility] [address] [id number] [address] [place] [address], [place] [address] May, [facility] [address] [id number] [address] [place] [address], [place] [address] Apr, [facility] [address] [id number] [address] [place] [address], [place] [address] Apr, [facility] [address] [id number] [address] [place] [address], [place] [address] Apr, [facility] [address] [id number] [address] [place] [address], [place] [address] Apr, [facility] [address] [id number] [address] [place] [address], [place] [address] Mar, [facility] [address] [id number] [address] [place] [address], [place] [address] Mar, [facility] [address] [id number] [address] [place] [address], [place] [address] Mar, [facility] [address] [id number] [address] [place] [address], [place] [address] Mar, [facility] [address] [id number] [address] [place] [address], [place] [address] Mar, [facility] [address] [id number] [address] [place] [address], [place] [address] Mar, [facility] [address] [id number] [address] [place] [address], [place] [address] Mar, [facility] [address] [id number] [address] [place] [address], [place] [address] Mar, [facility] [address] [id number] [address] [place] [address], [place] [address] Mar, [facility] [address] [id number] [address] [place] [address], [place] [address] Mar, [facility] [address] [id number] [address] [place] [address], [place] [address] Mar, [facility] [address] [id number] [address] [place] [address], [place] [address] Mar, [facility] [address] [id number] [address] [place] [address], [place] [address] Feb, [facility] [address] [id number] [address] [place] [address], [place] [address] Feb, [facility] [address] [id number] [facility] [place] [address] Jan, [facility] [address] [id number] [address] [place] [address], [place] [address] Jan, [facility] [address] [id number] [address] [place] [address], [place] [address] Jan, [facility] [address] [id number] [address] [place] [address], [place] [address] Jan, [facility] [address] [id number] [address] [place] [address], [place] [address] December, [facility] [address] [id number] [address] [place] [address], [place] [address] December, [facility] [address] [id number] [address] [place] [address], [place] [address] December, [facility] [address] [id number] [address] [place] [address], [place] [address] December, [facility] [address] [id number] [address] [place] [address], [place] [address] Nov, [facility] [address] [id number] [address] [place] [address], [place] [address] Nov, [facility] [address] [id number] [address] [place] [address], [place] [address] Nov, [facility] [address] [id number] [address] [place] [address], [place] [address] Nov, [facility] [address] [id number] [address] [place] [address], [place] [address] Nov, [facility] [address] [id number] [address] [place] [address], [place] [address] Nov, [facility] [address] [id number] [address] [place] [address], [place] [address] Nov, [facility] [address] [id number] [address] [place] [address], [place] [address] Oct, [facility] [address] [id number] [address] [place] [address], [place] [address] Oct, [facility] [address] [id number] [address] [place] [address], [place] [address] Oct, [facility] [address] [id number] [address] [place] [address], [place] [address] Oct, [facility] [address] [id number] [address] [place] [address], [place] [address] Oct, [facility] [address] [id number] [address] [place] [address], [place] [address] Oct, [facility] [address] [id number] [address] [place] [address], [place] [address] Oct, [facility] [address] [id number] [address] [place] [address], [place] [address] 07 Sep, 2013 [facility] [address] [id number] [address] [place] [address], [place] [address] 07 Sep, 2013 [facility] [address] [id number] [address] [place] [address], [place] [address] Sep, [facility] [address] [id number] [address] [place] [address], [place] [address] Sep, [facility] [address] [id number] [address] [place] [address], [place] [address] Aug, [facility] [address] [id number] [address] [place] [address], [place] [address] Aug, [facility] [address] [id number] [address] [place] [address], [place] [address] Aug, [facility] [address] [id number] [address] [place] [address], [place] [address] Aug, [facility] [address] [id number] [address] [place] [address], [place] [address] 16 Jul, 2013 [facility] [address] [id number] [address] [place] [address], [place] [address] Jul, [facility] [address] [id number] [address] [place] [address], [place] [address] Apr, [facility] [address] [id number] [address] [place] [address], [place] [address] Apr, [facility] [address] [id number] [address] [place] [address], [place] [address] Mar, [facility] [address] [id number] [address] [place] [address], [place] [address] Mar, [facility] [address] [id number] [address] [place] [address], [place] [address] Mar, [facility] [address] [id number] [address] [place] [address], [place] [address] Mar, [facility] [address] [id number] [address] [place] [address], [place] [address] Mar, [facility] [address] [id number] [address] [place] [address], [place] [address] Mar, [facility] [address] [id number] [address] [place] [address], [place] [address] Mar, [facility] [address] [id number] [address] [place] [address], [place] [address] Mar, [facility] [address] [id number] [address] [place] [address], [place] [address] Mar, [facility] [address] [id number] [address] [place] [address], [place] [address] Mar, [facility] [address] [id number] [address] [place] [address], [place] [address] Feb, [facility] [address] [id number] [address] [place] [address], [place] [address] Feb, [facility] [address] [id number] [address] [place] [address], [place] [address] 18 Feb, 2013 [facility] [address] [id number] [address] [place] [address], [place] [address] 08 Feb, 2013 [facility] [address] [id number] [address] [place] [address], [place] [address] Jan, [facility] [address] [id number] [address] [place] [address], [place] [address] 25 Nov, 2012 [facility] [address] [id number] [address] [place] [address], [place] [address] 16 Nov, 2012 [facility] [address] [id number] [address] [place] [address], [place] [address] 15 Nov, 2012 [facility] [address] [id number] [address] [place] [address], [place] [address] Nov, [facility] [address] [id number] [address] [place] [address], [place] [address] Oct, [facility] [address] [id number] [address] [place] [address], [place] [address] Sep, [facility] [address] [id number] [address] [place] [address], [place] [address] Sep, [facility] [address] [id number] [address] [place] [address], [place] [address] Aug, [facility] [address] [id number] [address] [place] [address], [place] [address] Jul, [facility] [address] [id number] [address] [place] [address], [place] [address] Jul, [facility] [address] [id number] [address] [place] [address], [place] [address] May, [facility] [address] [id number] [address] [place] [address], [place] [address] May, [facility] [address] [id number] [address] [place] [address], [place] [address] May, [facility] [address] [id number] [address] [place] [address], [place] [address] May, [facility] [address] [id number] [address] [place] [address], [place] [address] Apr, [facility] [address] [id number] [address] [place] [address], [place] [address] Mar, [facility] [address] [id number] [address] [place] [address], [place] [address] Mar, [facility] [address] [id number] [address] [place] [address], [place] [address] Mar, [facility] [address] [id number] [address] [place] [address], [place] [address] Mar, [facility] [address] [id number] [address] [place] [address], [place] [address] Mar, [facility] [address] [id number] [address] [place] [address], [place] [address] Mar, [facility] [address] [id number] [address] [place] [address], [place] [address] Mar, [facility] [address] [id number] [address] [place] [address], [place] [address] Mar, [facility] [address] [id number] [address] [place] [address], [place] [address] Feb, [facility] [address] [id number] [address] [place] [address], [place] [address] Feb, [facility] [address] [id number] [address] [place] [address], [place] [address] Jan, [facility] [address] [id number] [address] [place] [address], [place] [address] December, [facility] [address] [id number] [address] [place] [address], [place] [address] December, [facility] [address] [id number] [address] [place] [address], [place] [address] 23 Nov, 2011 [facility] [address] [id number] [address] [place] [address], [place] [address] Nov, [facility] [address] [id number] [address] [place] [address], [place] [address] 18 Nov, 2011 [facility] [address] [id number] [address] [place] [address], [place] [address] Nov, [facility] [address] [id number] [address] [place] [address], [place] [address] 08 Oct, 2011 [facility] [address] [id number] [address] [place] [address], [place] [address] 29 Sep, 2011 [facility] [address] [id number] [address] [place] [address], [place] [address] 21 Sep, 2011 [facility] [address] [id number] [address] [place] [address], [place] [address] 17 Sep, 2011 [facility] [address] [id number] [address] [place] [address], [place] [address] 17 Sep, 2011 [facility] [address] [id number] [address] [place] [address], [place] [address] 16 Sep, 2011 [facility] [address] [id number] [address] [place] [address], [place] [address] 16 Sep, 2011 [facility] [address] [id number] [address] [place] [address], [place] [address] 15 Sep, 2011 [facility] [address] [id number] [address] [place] [address], [place] [address] 15 Sep, 2011 [facility] [address] [id number] [address] [place] [address], [place] [address] Aug, [facility] [address] [id number] [address] [place] [address], [place] [address] Jul, [facility] [address] [id number] [address] [place] [address], [place] [address] 14 Jul, 2011 [facility] [address] [id number] [address] [place] [address], [place] [address] 14 Jul, 2011 [facility] [address] [id number] [address] [place] [address], [place] [address] 08 Jun, 2011 [facility] [address] [id number] [address] [place] [address], [place] [address] 21 Jul, 2010 [facility] [address] [id number] [address] [place] [address], [place] [address] 21 Jul, 2010 [facility] [address] [id number] [address] [place] [address], [place] [address] 16 Jul, 2010 [facility] [address] [id number] [address] [place] [address], [place] [address] 02 Jul, 2010 [facility] [address] [id number] [address] [place] [address], [place] [address] Jul, [facility] [address] [id number] [address] [place] [address], [place] [address] 28 May, 2010 [facility] [address] [id number] [address] [place] [address], [place] [address] May, [facility] [address] [id number] [address] [place] [address] May, [facility] [address] [id number] [address] [place] [address], [place] [address] 15 Apr, 2010 [facility] [address] [id number] [address] [place] [address] 13 Jun, 2009 [facility] [address] [id number] [address] [place] [address] 13 Jun, 2009 [facility] [address] [id number] [address] [place] [address] 27 May, 2009 [facility] [address] [id number] [address] [place] [address] 16 Jan, 2009 IMMUNIZATIONS No Known Immunizations [...] History tumor removal left leg Hospitalization History [facility] 03/2012
--- OUTSIDE RECORDS SUMMARY | 2019-11-01 20:28 | XMS REPORT ---
Author Author Nyasia Bernard [facility] Address [address] [place] [address] Care Team Providers Care Rn Camp Name Role Phone Marco Antonio IVANIA Unavailable PROBLEMS Type Condition ICD9-CM Code ROF28-WG Code Onset Dates Condition S tatus SNOMED Code Problem Costochondritis 733.6 Active 6410 9004 Problem Grief reaction F43.21 Active 74763 5009 Problem Hyperlipidemia E78.5 Active 85466 004 Problem Unspecified cardiac dysrhythmia 427.9 Active 694422435 Problem Diabetes 250.00 Active 66552974 Problem Type 2 diabetes mellitus without complications E11 .9 Active 72844812 Problem Essential hypertension I10 Active [id number] ALLERGIES No Information ENCOUNTERS Encounter Location Date Diagnosis [place] [address] [place] [id number] [place] [address] December, Insect bite (nonvenomous), l eft thigh, initial encounter S70.362A ; Local infection of the skin and subcutaneous tissue, unspecified L08.9 and Bitten or stung by nonvenomous insect and other nonvenomous arthropods, initial encounter W57.XXXA [place] [address] [place] [id number] [place] [address] December, [place] [address] [place] [id number] [place] [address] Nov, [place] [address] [address] Nov, [place] [address] [place] [id number] [place] [address] Oct, URI (upper respiratory infec tion) J06.9 ; Type 2 diabetes mellitus without complications E11.9 and Hyperlipidemia E78.5 [facility] [address] [facility] [id number] [address] [place] [address] Aug, [facility] [address] [facility] [id number] [address] [place] [place] [address] Jun, Acute nasopharyngitis J00 [facility] [address] [facility] [id number] [address] [place] [place] [address] 23 May, 2018 Encounter for immunization Z 23 [facility] [address] [facility] [id number] [address] [place] [place] [address] 20 Apr, 2018 [facility] [address] [facility] [id number] [place] [address] Apr, Type 2 diabetes mellitus wit hout complications E11.9 [facility] [address] [facility] [id number] [address] [place] [place] [address] Apr, Type 2 diabetes mellitus wit hout complications E11.9 ; Grief reaction F43.21 and Essential hypertension I10 [facility] [address] [facility] [id number] [address] [place] [place] [address] Mar, Type 2 diabetes mellitus wit hout complications E11.9 [facility] [address] [facility] [id number] [address] [place] [address] Mar, Type 2 diabetes mellitus wit hout complications E11.9 [facility] [address] [facility] [id number] [address] [place] [address] Feb, [facility] [address] [facility] [id number] [address] [place] [place] [address] Jan, [facility] [address] [facility] [id number] [address] [place] [place] [address] Nov, Type 2 diabetes mellitus wit hout complications E11.9 [facility] [address] [facility] [id number] [address] [place] [address] Oct, [facility] [address] [facility] [id number] [address] [place] [place] [address] Oct, Labia irritation N90.89 [facility] [address] [id number] [address] [place] [address] Sep, [facility] [address] [id number] [address] [place] [address] Sep, [facility] [address] [id number] [address] [place] [address] Sep, [facility] [address] [id number] [address] [place] [address] Aug, [facility] [address] [id number] [address] [place] [address] Jul, [facility] [address] [id number] [address] [place] [address] Jul, [facility] [address] [id number] [address] [place] [address] Mar, Type 2 diabetes mellitus wit hout complications E11.9 ; Acute pain of right knee M25.561 and Essential hypertension I10 [facility] [address] [id number] [address] [place] [address] Mar, [facility] [address] [id number] [address] [place] [address] Mar, Dysuria R30.0 [facility] [address] [id number] [address] [place] [address] December, [facility] [address] [id number] [address] [place] [address] Nov, [facility] [address] [id number] [address] [place] [address] Nov, Dental examination Z01.20 [facility] [address] [id number] [address] [place] [address] Nov, Dental examination Z01.20 [facility] [address] [facility] [id number] [address] [place] [address] Nov, Non-intractable vomiting wit h nausea, unspecified vomiting type R11.2 ; Arthralgia, unspecified joint M25.50 ; Fever, unspecified fever cause R50.9 ; Type 2 diabetes mellitus without complications E11.9 and Tooth pain K08.89 [facility] [address] [facility] [id number] [address] [place] [id number] Nov, Type 2 diabetes mellitus wit hout complications E11.9 [place] [address] [facility] [id number] [address] [place] [address] Nov, Type 2 diabetes mellitus wit hout complications E11.9 and Bronchitis J40 [place] [address] [place] [id number] [address] [place] [address] Oct, Type 2 diabetes mellitus wit hout complications E11.9 [place] [address] [place] [id number] [address] [place] [address] Jul, [place] [address] [place] [id number] [address] [place] [address] Jul, Dysuria R30.0 ; Hematuria R3 1.9 and Vaginal pain R10.2 [place] [address] [place] [id number] [address] [place] [address] Jul, Dysuria R30.0 ; Vaginal disc harge N89.8 and Low back strain, initial encounter S39.012A [place] [address] [place] [id number] [address] [place] [address] Jun, Bacterial conjunctivitis of right eye H10.9 ; Sore throat J02.9 and Acute non-recurrent maxillary sinusitis J01.00 [place] [address] [facility] [id number] [address] [place] [address] Jun, [place] [address] [place] [id number] [address] [place] [address] May, [facility] [address] [place] [id number] [address] [place] [address] Apr, [facility] [address] [id number] [address] [place] [address] 14 Apr, 2016 [facility] [address] [id number] [address] [place] [address] Apr, [facility] [address] [id number] [address] [place] [id number] Apr, Type 2 diabetes mellitus wit hout complications E11.9 [facility] [address] [id number] [address] [place] [address] Mar, [facility] [address] [id number] [address] [place] [address] Feb, Bronchitis J40 [facility] [address] [id number] [address] [place] [address] Feb, Bronchitis J40 [facility] [address] [id number] [address] [place] [address] Feb, Type 2 diabetes mellitus wit hout complications E11.9 [facility] [address] [id number] [address] [place] [address] Feb, [facility] [address] [id number] [address] [place] [address] Feb, [facility] [address] [id number] [address] [place] [address] Feb, Type 2 diabetes mellitus wit hout complications E11.9 and Dysuria R30.0 [facility] [address] [id number] [address] [place] [address] Jan, Type 2 diabetes mellitus wit hout complications E11.9 [facility] [address] [id number] [address] [place] [address] 14 Jan, 2016 Type 2 diabetes mellitus wit hout complications E11.9 [facility] [address] [id number] [address] [place] [address] December, Type 2 diabetes mellitus wit hout complications E11.9 [facility] [address] [id number] [address] [place] [address] Nov, Type 2 diabetes mellitus wit hout complications E11.9 [facility] [address] [address] Oct, Type 2 diabetes mellitus wit hout complications E11.9 ; Fever R50.9 ; Myalgia M79.1 and Cough R05 [facility] [address] [address] Sep, Dysuria R30.0 and Cystitis N 30.90 [facility] [address] [address] Sep, [place] [address] [address] Sep, [facility] [id number] [place] [id number] Aug, Dental examination Z01.20 [facility] [address] [place] [id number] [place] [address] Aug, Type 2 diabetes mellitus wit hout complications E11.9 [facility] [address] [address] Jul, Dysfunction of left eustachi an tube H69.82 [facility] [address] [place] [id number] [place] [address] Jun, [facility] [address] [place] [id number] [place] [address] Jun, Cellulitis L03.90 [facility] [address] [place] [id number] [place] [address] Jun, [facility] [address] [address] Jun, [facility] [address] [place] [id number] [place] [address] Jun, [facility] [address] [place] [id number] [place] [address] May, Dermatofibroma of ankle, rig ht D23.71 [place] [address] [address] May, [place] [address] [id number] 29 Apr, 2015 Diabetes 250.00 and 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 [place] [address] [address] Apr, [place] [address] [address] Apr, [place] [address] [id number] 15 Apr, 2015 Diabetes 250.00 ; Influenza vaccine administered V04.81 and Allergic rhinitis 477.[address] [address] Mar, [place] [address] [address] Jan, [place] [address] [address] Jan, DM w/o complication type II 250.[address] [address] December, DM w/o complication type II 250.00 ; Calcaneal spur 726.73 ; Vaginitis due to Amanda 112.1 and Onychomycosis 110.1 [place] [address] [id number] 30 Nov, 2014 Amanda infection of genital region 112.2 [place] [address] [id number] 14 Nov, 2014 [place] [address] [address] Nov, [facility] [address] [id number] [address] [place] [address], [place] [address] Oct, [facility] [address] [id number] [address] [place] [address], [place] [address] Oct, [facility] [address] [id number] [address] [place] [address], [place] [address] Sep, [facility] [address] [id number] [address] [place] [address], [place] [address] Sep, [facility] [address] [id number] [address] [place] [address], [place] [address] Jul, [facility] [address] [id number] [address] [place] [address], [place] [address] Jul, [facility] [address] [id number] [address] [place] [address], [place] [address] Jun, [facility] [address] [id number] [address] [place] [address], [place] [address] Jun, [facility] [address] [id number] [address] [place] [address], [place] [address] Jun, [facility] [address] [id number] [address] [place] [address], [place] [address] Jun, [facility] [address] [id number] [address] [place] [address], [place] [address] May, [facility] [address] [id number] [address] [place] [address], [place] [address] May, [facility] [address] [id number] [address] [place] [address], [place] [address] May, [facility] [address] [id number] [address] [place] [address], [place] [address] May, [facility] [address] [id number] [address] [place] [address], [place] [address] Apr, [facility] [address] [id number] [facility] [place] [address] Apr, [facility] [address] [id number] [address] [place] [address], [place] [address] Apr, [facility] [address] [id number] [address] [place] [address], [place] [address] Apr, [facility] [address] [id number] [address] [place] [address], [place] [address] Mar, [facility] [address] [id number] [address] [place] [address], [place] [address] Mar, [facility] [address] [id number] [address] [place] [address], [place] [address] Mar, [facility] [address] [id number] [address] [place] [address], [place] [address] Mar, [facility] [address] [id number] [address] [place] [address], [place] [address] Mar, [facility] [address] [id number] [address] [place] [address], [place] [address] Mar, [facility] [address] [id number] [address] [place] [address], [place] [address] Mar, [facility] [address] [id number] [address] [place] [address], [place] [address] Mar, [facility] [address] [id number] [address] [place] [address], [place] [address] Mar, [facility] [address] [id number] [address] [place] [address], [place] [address] Mar, [facility] [address] [id number] [address] [place] [address], [place] [address] Mar, [facility] [address] [id number] [address] [place] [address], [place] [address] Mar, [facility] [address] [id number] [address] [place] [address], [place] [address] Feb, [facility] [address] [id number] [address] [place] [address], [place] [address] Feb, [facility] [address] [id number] [address] [place] [address], [place] [address] Jan, [facility] [address] [id number] [address] [place] [address], [place] [address] Jan, [facility] [address] [id number] [address] [place] [address], [place] [address] Jan, [facility] [address] [id number] [address] [place] [address], [place] [address] Jan, [facility] [address] [id number] [address] [place] [address], [place] [address] December, [facility] [address] [id number] [address] [place] [address], [place] [address] December, [facility] [address] [id number] [address] [place] [address], [place] [address] December, [facility] [address] [id number] [address] [place] [address], [place] [address] December, [facility] [address] [id number] [address] [place] [address], [place] [address] Nov, [facility] [address] [id number] [address] [place] [address], [place] [address] Nov, [facility] [address] [id number] [address] [place] [address], [place] [address] Nov, [facility] [address] [id number] [address] [place] [address], [place] [address] Nov, [facility] [address] [id number] [address] [place] [address], [place] [address] Nov, [facility] [address] [id number] [address] [place] [address], [place] [address] Nov, [facility] [address] [id number] [address] [place] [address] Nov, [facility] [address] [id number] [address] [place] [address], [place] [address] Oct, [facility] [address] [id number] [address] [place] [address], [place] [address] Oct, [facility] [address] [id number] [address] [place] [address], [place] [address] Oct, [facility] [address] [id number] [address] [place] [address], [place] [address] Oct, [facility] [address] [id number] [address] [place] [address], [place] [address] Oct, [facility] [address] [id number] [address] [place] [address], [place] [address] Oct, [facility] [address] [id number] [address] [place] [address], [place] [address] Oct, [facility] [address] [id number] [address] [place] [address], [place] [address] 07 Sep, 2013 [facility] [address] [id number] [address] [place] [address], [place] [address] Sep, [facility] [address] [id number] [address] [place] [address], [place] [address] Sep, [facility] [address] [id number] [address] [place] [address], [place] [address] Sep, [facility] [address] [id number] [address] [place] [address] Aug, [facility] [address] [id number] [address] [place] [address], [place] [address] Aug, [facility] [address] [id number] [address] [place] [address], [place] [address] Aug, [facility] [address] [id number] [address] [place] [address], [place] [address] Aug, [facility] [address] [id number] [address] [place] [address], [place] [address] Jul, [facility] [address] [id number] [address] [place] [address], [place] [address] Jul, [facility] [address] [id number] [address] [place] [address], [place] [address] Apr, [facility] [address] [id number] [address] [place] [address], [place] [address] Apr, [facility] [address] [id number] [address] [place] [address], [place] [address] Mar, [facility] [address] [id number] [address] [place] [address], [place] [address] Mar, [facility] [address] [id number] [address] [place] [address], [place] [address] Mar, [facility] [address] [id number] [address] [place] [address], [place] [address] Mar, [facility] [address] [id number] [address] [place] [address], [place] [address] Mar, [facility] [address] [id number] [address] [place] [address], [place] [address] Mar, [facility] [address] [id number] [address] [place] [address], [place] [address] Mar, [facility] [address] [id number] [address] [place] [address], [place] [address] Mar, [facility] [address] [id number] [address] [place] [address], [place] [address] Mar, [facility] [address] [id number] [address] [place] [address], [place] [address] Mar, [facility] [address] [id number] [address] [place] [address], [place] [address] Feb, [facility] [address] [id number] [address] [place] [address], [place] [address] Feb, [facility] [address] [id number] [address] [place] [address], [place] [address] Feb, [facility] [address] [id number] [address] [place] [address], [place] [address] 08 Feb, 2013 [facility] [address] [id number] [address] [place] [address], [place] [address] Jan, [facility] [address] [id number] [address] [place] [address], [place] [address] 25 Nov, 2012 [facility] [address] [id number] [address] [place] [address], [place] [address] 16 Nov, 2012 [facility] [address] [id number] [address] [place] [address], [place] [address] 15 Nov, 2012 [facility] [address] [id number] [address] [place] [address], [place] [address] Nov, [facility] [address] [id number] [address] [place] [address], [place] [address] Oct, [facility] [address] [id number] [address] [place] [address], [place] [address] Sep, [facility] [address] [id number] [address] [place] [address], [place] [address] Sep, [facility] [address] [id number] [address] [place] [address], [place] [address] Aug, [facility] [address] [id number] [address] [place] [address], [place] [address] Jul, [facility] [address] [id number] [address] [place] [address], [place] [address] Jul, [facility] [address] [id number] [address] [place] [address], [place] [address] May, [facility] [address] [id number] [address] [place] [address], [place] [address] May, [facility] [address] [id number] [address] [place] [address], [place] [address] May, [facility] [address] [id number] [address] [place] [address], [place] [address] May, [facility] [address] [id number] [address] [place] [address], [place] [address] Apr, [facility] [address] [id number] [address] [place] [address], [place] [address] Mar, [facility] [address] [id number] [address] [place] [address], [place] [address] Mar, [facility] [address] [id number] [address] [place] [address], [place] [address] Mar, [facility] [address] [id number] [address] [place] [address], [place] [address] Mar, [facility] [address] [id number] [address] [place] [address], [place] [address] Mar, [facility] [address] [id number] [address] [place] [address], [place] [address] Mar, [facility] [address] [id number] [address] [place] [address], [place] [address] Mar, [facility] [address] [id number] [address] [place] [address], [place] [address] Mar, [facility] [address] [id number] [address] [place] [address], [place] [address] Feb, [facility] [address] [id number] [address] [place] [address], [place] [address] Feb, [facility] [address] [id number] [address] [place] [address], [place] [address] Jan, [facility] [address] [id number] [address] [place] [address], [place] [address] December, [facility] [address] [id number] [address] [place] [address], [place] [address] December, [facility] [address] [id number] [address] [place] [address], [place] [address] 23 Nov, 2011 [facility] [address] [id number] [address] [place] [address], [place] [address] 19 Nov, 2011 [facility] [address] [id number] [address] [place] [address], [place] [address] 18 Nov, 2011 [facility] [address] [id number] [address] [place] [address], [place] [address] Nov, [facility] [address] [id number] [address] [place] [address], [place] [address] 08 Oct, 2011 [facility] [address] [id number] [address] [place] [address], [place] [address] 29 Sep, 2011 [facility] [address] [id number] [address] [place] [address], [place] [address] 21 Sep, 2011 [facility] [address] [id number] [address] [place] [address], [place] [address] 17 Sep, 2011 [facility] [address] [id number] [address] [place] [address], [place] [address] 17 Sep, 2011 [facility] [address] [id number] [address] [place] [address], [place] [address] 16 Sep, 2011 [facility] [address] [id number] [address] [place] [address], [place] [address] 16 Sep, 2011 [facility] [address] [id number] [address] [place] [address], [place] [address] 15 Sep, 2011 [facility] [address] [id number] [address] [place] [address], [place] [address] 15 Sep, 2011 [facility] [address] [id number] [address] [place] [address], [place] [address] Aug, [facility] [address] [id number] [address] [place] [address], [place] [address] Jul, [facility] [address] [id number] [address] [place] [address], [place] [address] 14 Jul, 2011 [facility] [address] [id number] [address] [place] [address], [place] [address] 14 Jul, 2011 [facility] [address] [id number] [address] [place] [address], [place] [address] 08 Jun, 2011 [facility] [address] [id number] [address] [place] [address], [place] [address] 21 Jul, 2010 [facility] [address] [id number] [address] [place] [address], [place] [address] 21 Jul, 2010 [facility] [address] [id number] [address] [place] [address], [place] [address] 16 Jul, 2010 [facility] [address] [id number] [address] [place] [address], [place] [address] 02 Jul, 2010 [facility] [address] [id number] [address] [place] [address], [place] [address] Jul, [facility] [address] [id number] [address] [place] [address], [place] [address] 28 May, 2010 [facility] [address] [id number] [address] [place] [address], [place] [address] May, [facility] [address] [id number] [address] [place] [address], [place] [address] May, [facility] [address] [id number] [address] [place] [address], [place] [address] 15 Apr, 2010 [facility] [address] [id number] [address] [place] [address], [place] [address] 13 Jun, 2009 [facility] [address] [id number] [address] [place] [address], [place] [address] 13 Jun, 2009 [facility] [address] [id number] [address] [place] [address], [place] [address] 27 May, 2009 [facility] [address] [id number] [address] [place] [address], [place] [address] Jan, IMMUNIZATIONS No Known Immunizations SOCIAL HISTORY [...] History tumor removal left leg Hospitalization History [facility] 03/2012
--- OUTSIDE RECORDS SUMMARY | 2019-11-01 20:28 | XMS REPORT ---
Author Author AnnNyasia Doctor Organization [facility] Address Unknown Phone Unavailable Care Team Providers Care Certified Physician Assistant Name Role Phone Migration, Doctor Unavailable Unavailable PROBLEMS Type Condition ICD9-CM Code QTI98-MA Code Onset Dates Condition S tatus SNOMED Code Problem Costochondritis 733.6 Active 6410 9004 Problem Grief reaction F43.21 Active 42622 5009 Problem Hyperlipidemia E78.5 Active 50496 004 Problem Unspecified cardiac dysrhythmia 427.9 Active 363014372 Problem Diabetes 250.00 Active 45487134 Problem Type 2 diabetes mellitus without complications E11 .9 Active 56675905 Problem Essential hypertension I10 Active [id number] ALLERGIES No Information ENCOUNTERS Encounter Location Date Diagnosis [place] [address] [place] [id number] [place] [id number] Nov, [place] [address] [place] [id number] [place] [id number] Nov, [place] [address] [place] [id number] [place] [id number] Oct, URI (upper respiratory infec tion) J06.9 ; Type 2 diabetes mellitus without complications E11.9 and Hyperlipidemia E78.5 [place] [address] [place] [id number] Aug, [place] [address] [place] [id number] [place] [id number] Jun, Acute nasopharyngitis J00 [place] [address] [place] [id number] [place] [id number] May, Encounter for immunization Z 23 [place] [address] [place] [id number] [place] [id number] Apr, [place] [address] [place] [id number] [place] [id number] Apr, Type 2 diabetes mellitus wit hout complications E11.9 [facility] [address] [id number] [address] [place] [id number] Apr, Type 2 diabetes mellitus wit hout complications E11.9 ; Grief reaction F43.21 and Essential hypertension I10 [facility] [address] [id number] [address] [place] [id number] Mar, Type 2 diabetes mellitus wit hout complications E11.9 [facility] [address] [id number] [address] [place] [id number] Mar, Type 2 diabetes mellitus wit hout complications E11.9 [facility] [address] [id number] [address] [place] [id number] Feb, [facility] [address] [id number] [address] [place] [id number] Jan, [facility] [address] [id number] [address] [place] [id number] Nov, Type 2 diabetes mellitus wit hout complications E11.9 [facility] [address] [id number] [address] [place] [id number] Oct, [facility] [address] [id number] [address] [place] [id number] Oct, Labia irritation N90.89 [facility] [address] [id number] [address] [place] [id number] Sep, [facility] [address] [id number] [address] [place] [id number] Sep, [facility] [address] [id number] [address] [place] [id number] Sep, [facility] [address] [id number] [address] [place] [id number] Aug, [facility] [address] [id number] [address] [place] [id number] Jul, [facility] [address] [place] [address] Jul, [facility] [address] [address] Mar, Type 2 diabetes mellitus wit hout complications E11.9 ; Acute pain of right knee M25.561 and Essential hypertension I10 [place] [address] [address] Mar, [facility] [address] [address] Mar, Dysuria R30.0 [place] [address] [address] December, [place] [address] [address] Nov, [place] [address] [address] Nov, Dental examination Z01.20 [place] [address] [address] Nov, Dental examination Z01.20 [place] [address] [address] Nov, Non-intractable vomiting wit h nausea, unspecified vomiting type R11.2 ; Arthralgia, unspecified joint M25.50 ; Fever, unspecified fever cause R50.9 ; Type 2 diabetes mellitus without complications E11.9 and Tooth pain K08.89 [place] [address] [place] [address] Nov, Type 2 diabetes mellitus wit hout complications E11.9 [place] [address] [place] [id number] [place] [address] Nov, Type 2 diabetes mellitus wit hout complications E11.9 and Bronchitis J40 [place] [address] [place] [id number] [place] [address] Oct, Type 2 diabetes mellitus wit hout complications E11.9 [facility] [address] [id number] [address] [place] [address] Jul, [facility] [address] [id number] [address] [place] [id number] Jul, Dysuria R30.0 ; Hematuria R3 1.9 and Vaginal pain R10.2 [facility] [address] [id number] [address] [place] [id number] Jul, Dysuria R30.0 ; Vaginal disc harge N89.8 and Low back strain, initial encounter S39.012A [facility] [address] [id number] [address] [place] [address] Jun, Bacterial conjunctivitis of right eye H10.9 ; Sore throat J02.9 and Acute non-recurrent maxillary sinusitis J01.00 [facility] [address] [id number] [address] [place] [id number] Jun, [facility] [address] [id number] [address] [place] [address] May, [facility] [address] [id number] [address] [place] [id number] Apr, [facility] [address] [id number] [address] [place] [id number] 14 Apr, 2016 [facility] [address] [id number] [address] [place] [id number] Apr, [facility] [address] [id number] [address] [place] [id number] Apr, Type 2 diabetes mellitus wit hout complications E11.9 [facility] [address] [id number] [address] [place] [id number] Mar, [facility] [address] [id number] [address] [place] [id number] Feb, Bronchitis J40 [facility] [address] [facility] [id number] [address] [place] [id number] Feb, Bronchitis J40 [facility] [address] [facility] [id number] [address] [place] [address] Feb, Type 2 diabetes mellitus wit hout complications E11.9 [facility] [address] [place] [id number] [place] [id number] Feb, [facility] [address] [place] [id number] [address] [place] [id number] Feb, [facility] [address] [facility] [id number] [address] [place] [id number] Feb, Type 2 diabetes mellitus wit hout complications E11.9 and Dysuria R30.0 [facility] [address] [place] [id number] [place] [id number] Jan, Type 2 diabetes mellitus wit hout complications E11.9 [facility] [address] [place] [id number] [place] [address] Jan, Type 2 diabetes mellitus wit hout complications E11.9 [facility] [address] [place] [id number] [place] [address] December, Type 2 diabetes mellitus wit hout complications E11.9 [facility] [address] [place] [id number] [place] [id number] Nov, Type 2 diabetes mellitus wit hout complications E11.9 [facility] [address] [place] [id number] [place] [id number] Oct, Type 2 diabetes mellitus wit hout complications E11.9 ; Fever R50.9 ; Myalgia M79.1 and Cough R05 [facility] [address] [facility] [id number] [address] [place] [id number] 15 Sep, 2015 Dysuria R30.0 and Cystitis N 30.90 [facility] [address] [place] [id number] [place] [id number] Sep, [facility] [address] [facility] [id number] [address] [place] [id number] Sep, [facility] [address] [id number] [address] [place] [id number] Aug, Dental examination Z01.20 [facility] [address] [facility] [id number] [address] [place] [id number] Aug, Type 2 diabetes mellitus wit hout complications E11.9 [facility] [address] [facility] [id number] [address] [place] [id number] Jul, Dysfunction of left eustachi an tube H69.82 [facility] [address] [facility] [id number] [address] [place] [id number] Jun, [facility] [address] [facility] [id number] [address] [place] [id number] Jun, Cellulitis L03.90 [facility] [address] [facility] [id number] [address] [place] [id number] Jun, [facility] [address] [facility] [id number] [address] [place] [id number] Jun, [facility] [address] [place] [id number] [address] [place] [id number] Jun, [facility] [address] [facility] [id number] [address] [place] [id number] May, Dermatofibroma of ankle, rig ht D23.71 [facility] [address] [facility] [id number] [address] [place] [id number] May, [facility] [address] [facility] [id number] [address] [place] [address] Apr, Diabetes 250.00 and 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 [facility] [address] [facility] [id number] [address] [place] [id number] Apr, [facility] [address] [facility] [id number] [address] [place] [id number] Apr, [facility] [address] [facility] [id number] [address] [place] [address] Apr, Diabetes 250.00 ; Influenza vaccine administered V04.81 and Allergic rhinitis 477.9 [facility] [address] [facility] [id number] [address] [place] [id number] Mar, [facility] [address] [place] [id number] [address] [place] [id number] Jan, [facility] [address] [facility] [id number] [address] [place] [id number] Jan, DM w/o complication type II 250.00 [facility] [address] [place] [id number] [place] [address] December, DM w/o complication type II 250.00 ; Calcaneal spur 726.73 ; Vaginitis due to Amanda 112.1 and Onychomycosis 110.1 [facility] [address] [facility] [id number] [address] [place] [id number] 30 Nov, 2014 Amanda infection of genital region 112.2 [facility] [address] [place] [id number] [address] [place] [id number] 14 Nov, 2014 [facility] [address] [place] [id number] [address] [place] [id number] 13 Nov, 2014 [facility] [address] [facility] [id number] [address] [place] [id number] Oct, [facility] [address] [facility] [id number] [address] [place] [id number] Oct, [facility] [address] [place] [id number] [address] [place] [id number] Sep, [facility] [address] [facility] [id number] [address] [place] [id number] Sep, [facility] [address] [place] [id number] [address] [place] [id number] Jul, [facility] [address] [id number] [address] [place] [address], [place] [address] Jul, [facility] [address] [id number] [address] [place] [address], [place] [address] Jun, [facility] [address] [id number] [address] [place] [address], [place] [address] Jun, [facility] [address] [id number] [address] [place] [address], [place] [address] Jun, [facility] [address] [id number] [address] [place] [address], [place] [address] Jun, [facility] [address] [id number] [address] [place] [address], [place] [address] May, [facility] [address] [id number] [address] [place] [address], [place] [address] May, [facility] [address] [id number] [address] [place] [address], [place] [address] May, [facility] [address] [id number] [address] [place] [address], [place] [address] May, [facility] [address] [id number] [address] [place] [address], [place] [address] Apr, [facility] [address] [id number] [address] [place] [address], [place] [address] Apr, [facility] [address] [id number] [address] [place] [address], [place] [address] Apr, [facility] [address] [id number] [address] [place] [address], [place] [address] Apr, [facility] [address] [id number] [address] [place] [address], [place] [address] Mar, [facility] [address] [id number] [address] [place] [address], [place] [address] Mar, [facility] [address] [id number] [facility] [address] Mar, [facility] [address] [id number] [address] [place] [address], [place] [address] Mar, [facility] [address] [id number] [address] [place] [address], [place] [address] Mar, [facility] [address] [id number] [address] [place] [address], [place] [address] Mar, [facility] [address] [id number] [address] [place] [address], [place] [address] Mar, [facility] [address] [id number] [address] [place] [address], [place] [address] Mar, [facility] [address] [id number] [address] [place] [address], [place] [address] Mar, [facility] [address] [id number] [address] [place] [address], [place] [address] Mar, [facility] [address] [id number] [address] [place] [address], [place] [address] Mar, [facility] [address] [id number] [address] [place] [address], [place] [address] Mar, [facility] [address] [id number] [address] [place] [address], [place] [address] Feb, [facility] [address] [id number] [address] [place] [address], [place] [address] Feb, [facility] [address] [id number] [address] [place] [address], [place] [address] Jan, [facility] [address] [id number] [address] [place] [address], [place] [address] Jan, [facility] [address] [id number] [address] [place] [address], [place] [address] Jan, [facility] [address] [id number] [address] [place] [address], [place] [address] Jan, [facility] [address] [id number] [facility] [address] December, [facility] [address] [id number] [facility] [address] December, [facility] [address] [id number] [address] [place] [address], [place] [address] December, [facility] [address] [id number] [address] [place] [address], [place] [address] December, [facility] [address] [id number] [address] [place] [address], [place] [address] Nov, [facility] [address] [id number] [address] [place] [address], [place] [address] Nov, [facility] [address] [id number] [address] [place] [address], [place] [address] Nov, [facility] [address] [id number] [address] [place] [address], [place] [address] Nov, [facility] [address] [id number] [address] [place] [address], [place] [address] Nov, [facility] [address] [id number] [address] [place] [address], [place] [address] Nov, [facility] [address] [id number] [address] [place] [address], [place] [address] Nov, [facility] [address] [id number] [address] [place] [address], [place] [address] Oct, [facility] [address] [id number] [address] [place] [address], [place] [address] 31 Oct, 2013 [facility] [address] [id number] [address] [place] [address], [place] [address] 28 Oct, 2013 [facility] [address] [id number] [address] [place] [address], [place] [address] 13 Oct, 2013 [facility] [address] [id number] [address] [place] [address], [place] [address] Oct, [facility] [address] [id number] [address] [place] [address], [place] [address] Oct, [facility] [address] [id number] [address] [place] [address], [place] [address] Oct, [facility] [address] [id number] [address] [place] [address], [place] [address] Sep, [facility] [address] [id number] [address] [place] [address], [place] [address] Sep, [facility] [address] [id number] [address] [place] [address], [place] [address] Sep, [facility] [address] [id number] [address] [place] [address], [place] [address] Sep, [facility] [address] [id number] [address] [place] [address], [place] [address] Aug, [facility] [address] [id number] [address] [place] [address], [place] [address] Aug, [facility] [address] [id number] [address] [place] [address], [place] [address] Aug, [facility] [address] [id number] [address] [place] [address], [place] [address] Aug, [facility] [address] [id number] [address] [place] [address], [place] [address] Jul, [facility] [address] [id number] [address] [place] [address], [place] [address] Jul, [facility] [address] [id number] [address] [place] [address], [place] [address] Apr, [facility] [address] [id number] [address] [place] [address], [place] [address] Apr, [facility] [address] [id number] [address] [place] [address], [place] [address] Mar, [facility] [address] [id number] [facility] [address] Mar, [facility] [address] [id number] [address] [place] [address], [place] [address] Mar, [facility] [address] [id number] [address] [place] [address], [place] [address] Mar, [facility] [address] [id number] [address] [place] [address], [place] [address] Mar, [facility] [address] [id number] [address] [place] [address], [place] [address] Mar, [facility] [address] [id number] [address] [place] [address], [place] [address] Mar, [facility] [address] [id number] [address] [place] [address], [place] [address] Mar, [facility] [address] [id number] [address] [place] [address], [place] [address] Mar, [facility] [address] [id number] [address] [place] [address], [place] [address] Mar, [facility] [address] [id number] [address] [place] [address], [place] [address] Feb, [facility] [address] [id number] [address] [place] [address], [place] [address] Feb, [facility] [address] [id number] [address] [place] [address], [place] [address] Feb, [facility] [address] [id number] [address] [place] [address], [place] [address] Feb, [facility] [address] [id number] [address] [place] [address], [place] [address] Jan, [facility] [address] [id number] [address] [place] [address], [place] [address] Nov, [facility] [address] [id number] [address] [place] [address], [place] [address] 16 Nov, 2012 [facility] [address] [id number] [address] [place] [address], [place] [address] Nov, [facility] [address] [id number] [address] [place] [address], [place] [address] Nov, [facility] [address] [id number] [address] [place] [address], [place] [address] Oct, [facility] [address] [id number] [address] [place] [address], [place] [address] Sep, [facility] [address] [id number] [address] [place] [address], [place] [address] Sep, [facility] [address] [id number] [address] [place] [address], [place] [address] Aug, [facility] [address] [id number] [address] [place] [address], [place] [address] Jul, [facility] [address] [id number] [address] [place] [address], [place] [address] Jul, [facility] [address] [id number] [address] [place] [address], [place] [address] May, [facility] [address] [id number] [address] [place] [address], [place] [address] May, [facility] [address] [id number] [address] [place] [address], [place] [address] May, [facility] [address] [id number] [address] [place] [address], [place] [address] May, [facility] [address] [id number] [address] [place] [address], [place] [address] Apr, [facility] [address] [id number] [address] [place] [address], [place] [address] Mar, [facility] [address] [id number] [address] [place] [address], [place] [address] Mar, [facility] [address] [id number] [address] [place] [address], [place] [address] 16 Mar, 2012 [facility] [address] [id number] [address] [place] [address], [place] [address] Mar, [facility] [address] [id number] [address] [place] [address], [place] [address] Mar, [facility] [address] [id number] [address] [place] [address], [place] [address] Mar, [facility] [address] [id number] [address] [place] [address], [place] [address] Mar, [facility] [address] [id number] [address] [place] [address], [place] [address] Mar, [facility] [address] [id number] [address] [place] [address], [place] [address] Feb, [facility] [facility] [address] [id number] [address] [place] [address], [place] [address] Feb, [facility] [address] [id number] [address] [place] [address], [place] [address] Jan, [facility] [address] [id number] [address] [place] [address], [place] [address] December, [facility] [address] [id number] [address] [place] [address], [place] [address] December, [facility] [address] [id number] [address] [place] [address], [place] [address] Nov, [facility] [address] [id number] [address] [place] [address], [place] [address] Nov, [facility] [address] [id number] [address] [place] [address], [place] [address] 18 Nov, 2011 [facility] [address] [id number] [address] [place] [address], [place] [address] Nov, [facility] [address] [id number] [address] [place] [address], [place] [address] Oct, [facility] [address] [id number] [address] [place] [address], [place] [address] 29 Sep, 2011 [facility] [address] [id number] [address] [place] [address], [place] [address] 21 Sep, 2011 [facility] [address] [id number] [address] [place] [address], [place] [address] 17 Sep, 2011 [facility] [address] [id number] [address] [place] [address], [place] [address] 17 Sep, 2011 [facility] [address] [id number] [address] [place] [address], [place] [address] 16 Sep, 2011 [facility] [address] [id number] [address] [place] [address], [place] [address] 16 Sep, 2011 [facility] [address] [id number] [address] [place] [address], [place] [address] 15 Sep, 2011 [facility] [address] [id number] [address] [place] [address], [place] [address] 15 Sep, 2011 [facility] [address] [id number] [address] [place] [address], [place] [address] Aug, [facility] [address] [id number] [address] [place] [address], [place] [address] Jul, [facility] [address] [id number] [address] [place] [address], [place] [address] Jul, [facility] [address] [id number] [address] [place] [address], [place] [address] Jul, [facility] [address] [id number] [address] [place] [address], [place] [address] Jun, [facility] [address] [id number] [address] [place] [address], [place] [address] Jul, [facility] [address] [id number] [address] [place] [address], [place] [address] Jul, [facility] [address] [id number] [address] [place] [address] 16 Jul, 2010 [facility] [address] [id number] [address] [place] [address] Jul, [facility] [address] [id number] [address] [place] [address] Jul, [facility] [address] [id number] [address] [place] [address] May, [facility] [address] [id number] [address] [place] [address] May, [facility] [address] [id number] [address] [place] [address] May, [facility] [address] [id number] [address] [place] [address] Apr, [facility] [address] [id number] [address] [place] [address] Jun, [facility] [address] [id number] [address] [place] [address] Jun, [facility] [address] [id number] [address] [place] [address] May, [facility] [address] [id number] [address] [place] [address] Jan, IMMUNIZATIONS No Known Immunizations SOCIAL HISTORY Never Assessed REASON FOR VISIT EMR-[facility] PLAN OF CARE VITAL SIGNS MEDICATIONS Unknown [...]
--- OUTSIDE RECORDS SUMMARY | 2019-11-01 20:29 | XMS REPORT ---
Author Author AnnNyasia Doctor Organization [facility] Address Unknown Phone Unavailable Care Team Providers Care Software Project Manager Name Role Phone Migration, Doctor Unavailable Unavailable PROBLEMS Type Condition ICD9-CM Code THQ02-QC Code Onset Dates Condition S tatus SNOMED Code Problem Costochondritis 733.6 Active 6410 9004 Problem Grief reaction F43.21 Active 03706 5009 Problem Hyperlipidemia E78.5 Active 00757 004 Problem Unspecified cardiac dysrhythmia 427.9 Active 410101422 Problem Diabetes 250.00 Active 88939306 Problem Type 2 diabetes mellitus without complications E11 .9 Active 75852867 Problem Essential hypertension I10 Active [id number] ALLERGIES No Information ENCOUNTERS Encounter Location Date Diagnosis [place] [address] [place] [id number] [place] [address] Nov, [place] [address] [place] [id number] [place] [address] Nov, [place] [address] [place] [id number] [place] [address] Oct, URI (upper respiratory infec tion) J06.9 ; Type 2 diabetes mellitus without complications E11.9 and Hyperlipidemia E78.5 [place] [id number] [place] [address] Aug, [facility] [address] [place] [id number] [place] [address] Jun, Acute nasopharyngitis J00 [place] [address] [place] [id number] [place] [address] May, Encounter for immunization Z 23 [facility] [address] [place] [id number] [place] [address] Apr, [facility] [address] [place] [id number] [place] [address] Apr, Type 2 diabetes mellitus wit hout complications E11.9 [facility] [address] [id number] [address] [place] [address] Apr, Type 2 diabetes mellitus wit hout complications E11.9 ; Grief reaction F43.21 and Essential hypertension I10 [facility] [address] [id number] [address] [place] [address] Mar, Type 2 diabetes mellitus wit hout complications E11.9 [facility] [address] [id number] [address] [place] [address] Mar, Type 2 diabetes mellitus wit hout complications E11.9 [facility] [address] [id number] [address] [place] [address] Feb, [facility] [address] [id number] [address] [place] [address] Jan, [facility] [address] [id number] [address] [place] [address] Nov, Type 2 diabetes mellitus wit hout complications E11.9 [facility] [address] [id number] [address] [place] [address] Oct, [facility] [address] [id number] [address] [place] [address] Oct, Labia irritation N90.89 [facility] [address] [id number] [address] [place] [address] Sep, [facility] [address] [id number] [address] [place] [address] Sep, [facility] [address] [id number] [address] [place] [address] Sep, [facility] [address] [id number] [address] [place] [address] Aug, [facility] [address] [id number] [address] [place] [address] Jul, [facility] [address] [place] [address] Jul, [facility] [address] [address] Mar, Type 2 diabetes mellitus wit hout complications E11.9 ; Acute pain of right knee M25.561 and Essential hypertension I10 [place] [address] [address] Mar, [facility] [address] [address] Mar, Dysuria R30.0 [place] [address] [address] December, [place] [address] [address] Nov, [place] [address] [address] Nov, Dental examination Z01.20 [place] [address] [address] Nov, Dental examination Z01.20 [place] [address] [address] Nov, Non-intractable vomiting wit h nausea, unspecified vomiting type R11.2 ; Arthralgia, unspecified joint M25.50 ; Fever, unspecified fever cause R50.9 ; Type 2 diabetes mellitus without complications E11.9 and Tooth pain K08.89 [place] [address] [place] [address] Nov, Type 2 diabetes mellitus wit hout complications E11.9 [place] [address] [place] [id number] [place] [address] Nov, Type 2 diabetes mellitus wit hout complications E11.9 and Bronchitis J40 [place] [address] [place] [id number] [address] [place] [address] Oct, Type 2 diabetes mellitus wit hout complications E11.9 [facility] [address] [id number] [address] [place] [address] Jul, [facility] [address] [id number] [address] [place] [address] Jul, Dysuria R30.0 ; Hematuria R3 1.9 and Vaginal pain R10.2 [facility] [address] [id number] [address] [place] [address] Jul, Dysuria R30.0 ; Vaginal disc harge N89.8 and Low back strain, initial encounter S39.012A [facility] [address] [id number] [address] [place] [address] Jun, Bacterial conjunctivitis of right eye H10.9 ; Sore throat J02.9 and Acute non-recurrent maxillary sinusitis J01.00 [facility] [address] [id number] [address] [place] [address] Jun, [facility] [address] [id number] [address] [place] [address] May, [facility] [address] [id number] [address] [place] [address] Apr, [facility] [address] [id number] [address] [place] [address] 14 Apr, 2016 [facility] [address] [id number] [address] [place] [address] Apr, [facility] [address] [id number] [address] [place] [address] Apr, Type 2 diabetes mellitus wit hout complications E11.9 [facility] [address] [id number] [address] [place] [address] Mar, [facility] [address] [id number] [address] [place] [address] Feb, Bronchitis J40 [facility] [address] [facility] [id number] [address] [place] [address] Feb, Bronchitis J40 [facility] [address] [facility] [id number] [address] [place] [address] Feb, Type 2 diabetes mellitus wit hout complications E11.9 [facility] [address] [place] [id number] [address] [place] [address] Feb, [facility] [address] [place] [id number] [address] [place] [address] Feb, [facility] [address] [facility] [id number] [address] [place] [address] Feb, Type 2 diabetes mellitus wit hout complications E11.9 and Dysuria R30.0 [facility] [address] [place] [id number] [address] [place] [address] Jan, Type 2 diabetes mellitus wit hout complications E11.9 [facility] [address] [place] [id number] [place] [address] Jan, Type 2 diabetes mellitus wit hout complications E11.9 [facility] [address] [place] [id number] [place] [address] December, Type 2 diabetes mellitus wit hout complications E11.9 [facility] [address] [place] [id number] [address] [place] [address] Nov, Type 2 diabetes mellitus wit hout complications E11.9 [facility] [address] [place] [id number] [address] [place] [address] Oct, Type 2 diabetes mellitus wit hout complications E11.9 ; Fever R50.9 ; Myalgia M79.1 and Cough R05 [facility] [address] [facility] [id number] [address] [place] [address] 15 Sep, 2015 Dysuria R30.0 and Cystitis N 30.90 [facility] [address] [place] [id number] [address] [place] [address] Sep, [facility] [address] [facility] [id number] [address] [place] [address] Sep, [facility] [address] [id number] [address] [place] [id number] Aug, Dental examination Z01.20 [facility] [address] [facility] [id number] [address] [place] [address] Aug, Type 2 diabetes mellitus wit hout complications E11.9 [facility] [address] [facility] [id number] [address] [place] [address] Jul, Dysfunction of left eustachi an tube H69.82 [facility] [address] [facility] [id number] [address] [place] [address] Jun, [facility] [address] [facility] [id number] [address] [place] [address] Jun, Cellulitis L03.90 [facility] [address] [facility] [id number] [address] [place] [address] Jun, [facility] [address] [facility] [id number] [address] [place] [address] Jun, [facility] [address] [place] [id number] [address] [place] [address] Jun, [facility] [address] [facility] [id number] [address] [place] [address] May, Dermatofibroma of ankle, rig ht D23.71 [facility] [address] [facility] [id number] [address] [place] [address] May, [facility] [address] [facility] [id number] [address] [place] [address] Apr, Diabetes 250.00 and 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 [facility] [address] [facility] [id number] [address] [place] [address] Apr, [facility] [address] [facility] [id number] [address] [place] [address] Apr, [facility] [address] [facility] [id number] [address] [place] [address] Apr, Diabetes 250.00 ; Influenza vaccine administered V04.81 and Allergic rhinitis 477.9 [facility] [address] [facility] [id number] [address] [place] [address] Mar, [facility] [address] [place] [id number] [address] [place] [address] Jan, [facility] [address] [facility] [id number] [address] [place] [address] Jan, DM w/o complication type II 250.00 [facility] [address] [place] [id number] [address] [place] [address] December, DM w/o complication type II 250.00 ; Calcaneal spur 726.73 ; Vaginitis due to Amanda 112.1 and Onychomycosis 110.1 [facility] [address] [facility] [id number] [address] [place] [address] 30 Nov, 2014 Amanda infection of genital region 112.2 [facility] [address] [place] [id number] [address] [place] [address] 14 Nov, 2014 [facility] [address] [place] [id number] [address] [place] [address] 13 Nov, 2014 [facility] [address] [facility] [id number] [address] [place] [address] Oct, [facility] [address] [facility] [id number] [address] [place] [address] Oct, [facility] [address] [place] [id number] [address] [place] [address] Sep, [facility] [address] [facility] [id number] [address] [place] [address] Sep, [facility] [address] [place] [id number] [address] [place] [address] Jul, [facility] [address] [id number] [address] [place] [address], [place] [address] Jul, [facility] [address] [id number] [address] [place] [address], [place] [address] Jun, [facility] [address] [id number] [address] [place] [address], [place] [address] Jun, [facility] [address] [id number] [address] [place] [address], [place] [address] Jun, [facility] [address] [id number] [address] [place] [address], [place] [address] Jun, [facility] [address] [id number] [address] [place] [address], [place] [address] May, [facility] [address] [id number] [address] [place] [address], [place] [address] May, [facility] [address] [id number] [address] [place] [address], [place] [address] May, [facility] [address] [id number] [address] [place] [address], [place] [address] May, [facility] [address] [id number] [address] [place] [address], [place] [address] Apr, [facility] [address] [id number] [address] [place] [address], [place] [address] Apr, [facility] [address] [id number] [address] [place] [address], [place] [address] Apr, [facility] [address] [id number] [address] [place] [address], [place] [address] Apr, [facility] [address] [id number] [address] [place] [address], [place] [address] Mar, [facility] [address] [id number] [address] [place] [address], [place] [address] Mar, [facility] [address] [id number] [facility] [place] [address] Mar, [facility] [address] [id number] [address] [place] [address], [place] [address] Mar, [facility] [address] [id number] [address] [place] [address], [place] [address] Mar, [facility] [address] [id number] [address] [place] [address], [place] [address] Mar, [facility] [address] [id number] [address] [place] [address], [place] [address] Mar, [facility] [address] [id number] [address] [place] [address], [place] [address] Mar, [facility] [address] [id number] [address] [place] [address], [place] [address] Mar, [facility] [address] [id number] [address] [place] [address], [place] [address] Mar, [facility] [address] [id number] [address] [place] [address], [place] [address] Mar, [facility] [address] [id number] [address] [place] [address], [place] [address] Mar, [facility] [address] [id number] [address] [place] [address], [place] [address] Feb, [facility] [address] [id number] [address] [place] [address], [place] [address] Feb, [facility] [address] [id number] [address] [place] [address], [place] [address] Jan, [facility] [address] [id number] [address] [place] [address], [place] [address] Jan, [facility] [address] [id number] [address] [place] [address], [place] [address] Jan, [facility] [address] [id number] [address] [place] [address], [place] [address] Jan, [facility] [address] [id number] [facility] [place] [address] December, [facility] [address] [id number] [facility] [place] [address] December, [facility] [address] [id number] [address] [place] [address], [place] [address] December, [facility] [address] [id number] [address] [place] [address], [place] [address] December, [facility] [address] [id number] [address] [place] [address], [place] [address] Nov, [facility] [address] [id number] [address] [place] [address], [place] [address] Nov, [facility] [address] [id number] [address] [place] [address], [place] [address] Nov, [facility] [address] [id number] [address] [place] [address], [place] [address] Nov, [facility] [address] [id number] [address] [place] [address], [place] [address] Nov, [facility] [address] [id number] [address] [place] [address], [place] [address] Nov, [facility] [address] [id number] [address] [place] [address], [place] [address] Nov, [facility] [address] [id number] [address] [place] [address], [place] [address] Oct, [facility] [address] [id number] [address] [place] [address], [place] [address] 31 Oct, 2013 [facility] [address] [id number] [address] [place] [address], [place] [address] 28 Oct, 2013 [facility] [address] [id number] [address] [place] [address], [place] [address] 13 Oct, 2013 [facility] [address] [id number] [address] [place] [address], [place] [address] Oct, [facility] [address] [id number] [address] [place] [address], [place] [address] Oct, [facility] [address] [id number] [address] [place] [address], [place] [address] Oct, [facility] [address] [id number] [address] [place] [address], [place] [address] Sep, [facility] [address] [id number] [address] [place] [address], [place] [address] Sep, [facility] [address] [id number] [address] [place] [address], [place] [address] Sep, [facility] [address] [id number] [address] [place] [address], [place] [address] Sep, [facility] [address] [id number] [address] [place] [address], [place] [address] Aug, [facility] [address] [id number] [address] [place] [address], [place] [address] Aug, [facility] [address] [id number] [address] [place] [address], [place] [address] Aug, [facility] [address] [id number] [address] [place] [address], [place] [address] Aug, [facility] [address] [id number] [address] [place] [address], [place] [address] Jul, [facility] [address] [id number] [address] [place] [address], [place] [address] Jul, [facility] [address] [id number] [address] [place] [address], [place] [address] Apr, [facility] [address] [id number] [address] [place] [address], [place] [address] Apr, [facility] [address] [id number] [address] [place] [address], [place] [address] Mar, [facility] [address] [id number] [facility] [place] [address] Mar, [facility] [address] [id number] [address] [place] [address], [place] [address] Mar, [facility] [address] [id number] [address] [place] [address], [place] [address] Mar, [facility] [address] [id number] [address] [place] [address], [place] [address] Mar, [facility] [address] [id number] [address] [place] [address], [place] [address] Mar, [facility] [address] [id number] [address] [place] [address], [place] [address] Mar, [facility] [address] [id number] [address] [place] [address], [place] [id number] Mar, [facility] [address] [id number] [address] [place] [address], [place] [id number] Mar, [facility] [address] [id number] [address] [place] [address], [place] [address] Mar, [facility] [address] [id number] [address] [place] [address], [place] [id number] Feb, [facility] [address] [id number] [address] [place] [address], [place] [address] Feb, [facility] [address] [id number] [address] [place] [address], [place] [id number] Feb, [facility] [address] [id number] [address] [place] [address], [place] [id number] Feb, [facility] [address] [id number] [address] [place] [address], [place] [id number] Jan, [facility] [address] [id number] [address] [place] [address], [place] [address] Nov, [facility] [address] [id number] [address] [place] [address], [place] [id number] 16 Nov, 2012 [facility] [address] [id number] [address] [place] [address], [place] [id number] Nov, [facility] [address] [id number] [address] [place] [address], [place] [id number] Nov, [facility] [address] [id number] [address] [place] [address], [place] [id number] Oct, [facility] [address] [id number] [address] [place] [address], [place] [id number] Sep, [facility] [address] [id number] [address] [place] [address], [place] [address] Sep, [facility] [address] [id number] [address] [place] [address], [place] [id number] Aug, [facility] [address] [id number] [address] [place] [address], [place] [id number] Jul, [facility] [address] [id number] [address] [place] [address], [place] [address] Jul, [facility] [address] [id number] [address] [place] [address], [place] [id number] May, [facility] [address] [id number] [address] [place] [address], [place] [id number] May, [facility] [address] [id number] [address] [place] [address], [place] [id number] May, [facility] [address] [id number] [address] [place] [address], [place] [id number] May, [facility] [address] [id number] [address] [place] [address], [place] [id number] Apr, [facility] [address] [id number] [address] [place] [address], [place] [id number] Mar, [facility] [address] [id number] [address] [place] [address], [place] [id number] Mar, [facility] [address] [id number] [address] [place] [address], [place] [id number] 16 Mar, 2012 [facility] [address] [id number] [address] [place] [address], [place] [id number] Mar, [facility] [address] [id number] [address] [place] [address], [place] [id number] Mar, [facility] [address] [id number] [address] [place] [address], [place] [id number] Mar, [facility] [address] [id number] [address] [place] [address], [place] [id number] Mar, [facility] [address] [id number] [address] [place] [address], [place] [id number] Mar, [facility] [address] [id number] [address] [place] [address], [place] [id number] Feb, [facility] [address] [id number] [address] [place] [address], [place] [id number] Feb, [facility] [address] [id number] [address] [place] [address], [place] [id number] Jan, [facility] [address] [id number] [address] [place] [address], [place] [id number] December, [facility] [address] [id number] [address] [place] [address], [place] [address] December, [facility] [address] [id number] [address] [place] [address], [place] [id number] Nov, [facility] [address] [id number] [address] [place] [address], [place] [id number] Nov, [facility] [address] [id number] [address] [place] [address], [place] [id number] 18 Nov, 2011 [facility] [address] [id number] [address] [place] [address], [place] [address] Nov, [facility] [address] [id number] [address] [place] [address], [place] [id number] Oct, [facility] [address] [id number] [address] [place] [address], [place] [id number] 29 Sep, 2011 [facility] [address] [id number] [address] [place] [address], [place] [id number] 21 Sep, 2011 [facility] [address] [id number] [address] [place] [address], [place] [id number] 17 Sep, 2011 [facility] [address] [id number] [address] [place] [address], [place] [id number] 17 Sep, 2011 [facility] [address] [id number] [address] [place] [address], [place] [id number] 16 Sep, 2011 [facility] [address] [id number] [address] [place] [address], [place] [id number] 16 Sep, 2011 [facility] [address] [id number] [address] [place] [address], [place] [id number] 15 Sep, 2011 [facility] [address] [id number] [address] [place] [address], [place] [id number] 15 Sep, 2011 [facility] [address] [id number] [address] [place] [address], [place] [id number] Aug, [facility] [address] [id number] [address] [place] [address], [place] [id number] Jul, [facility] [address] [id number] [address] [place] [address], [place] [id number] Jul, [facility] [address] [id number] [address] [place] [address], [place] [id number] Jul, [facility] [address] [id number] [address] [place] [address], [place] [id number] Jun, [facility] [address] [id number] [address] [place] [address], [place] [id number] Jul, [facility] [address] [id number] [address] [place] [address], [place] [id number] Jul, [facility] [address] [id number] [address] [place] [id number] 16 Jul, 2010 [facility] [address] [id number] [address] [place] [id number] Jul, [facility] [address] [id number] [address] [place] [id number] Jul, [facility] [address] [id number] [address] [place] [id number] May, [facility] [address] [id number] [address] [place] [id number] May, [facility] [address] [id number] [address] [place] [id number] May, [facility] [address] [id number] [address] [place] [id number] Apr, [facility] [address] [id number] [address] [place] [id number] Jun, [facility] [address] [id number] [address] [place] [id number] Jun, [facility] [address] [id number] [address] [place] [id number] May, [facility] [address] [id number] [address] [place] [id number] Jan, IMMUNIZATIONS No Known Immunizations SOCIAL HISTORY Never Assessed REASON FOR VISIT EMR-[facility] [place] OF CARE VITAL SIGNS MEDICATIONS Unknown [...]
--- OUTSIDE RECORDS SUMMARY | 2019-11-01 20:29 | XMS REPORT ---
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 Tig Welder Name Role Phone Migration, Doctor Unavailable Unavailable PROBLEMS Type Condition ICD9-CM Code OXI12-NI Code Onset Dates Condition S tatus SNOMED Code Problem Costochondritis 733.6 Active 6410 9004 Problem Grief reaction F43.21 Active 38047 5009 Problem Hyperlipidemia E78.5 Active 88694 004 Problem Unspecified cardiac dysrhythmia 427.9 Active 952172516 Problem Diabetes 250.00 Active 11947217 Problem Type 2 diabetes mellitus without complications E11 .9 Active 53549610 Problem Essential hypertension I10 Active [id number] ALLERGIES No Information ENCOUNTERS Encounter Location Date Diagnosis [place] [address] [place] [id number] [place] [address] Nov, [place] [address] [place] [id number] [place] [address] Nov, [place] [address] [place] [id number] [place] [address] Oct, URI (upper respiratory infec tion) J06.9 ; Type 2 diabetes mellitus without complications E11.9 and Hyperlipidemia E78.5 [place] [id number] [place] [address] Aug, [place] [address] [place] [id number] [place] [address] Jun, Acute nasopharyngitis J00 [place] [address] [place] [id number] [place] [address] May, Encounter for immunization Z 23 [place] [address] [place] [id number] [place] [address] Apr, [place] [address] [place] [id number] [place] [address] Apr, Type 2 diabetes mellitus wit hout complications E11.9 [facility] [address] [id number] [address] [place] [address] Apr, Type 2 diabetes mellitus wit hout complications E11.9 ; Grief reaction F43.21 and Essential hypertension I10 [facility] [address] [id number] [address] [place] [address] Mar, Type 2 diabetes mellitus wit hout complications E11.9 [facility] [address] [id number] [address] [place] [address] Mar, Type 2 diabetes mellitus wit hout complications E11.9 [facility] [address] [id number] [address] [place] [address] Feb, [facility] [address] [id number] [address] [place] [address] Jan, [facility] [address] [id number] [address] [place] [address] Nov, Type 2 diabetes mellitus wit hout complications E11.9 [facility] [address] [id number] [address] [place] [address] Oct, [facility] [address] [id number] [address] [place] [address] Oct, Labia irritation N90.89 [facility] [address] [id number] [address] [place] [address] Sep, [facility] [address] [id number] [address] [place] [address] Sep, [facility] [address] [id number] [address] [place] [address] Sep, [facility] [address] [id number] [address] [place] [address] Aug, [facility] [address] [id number] [address] [place] [address] Jul, [facility] [address] [place] [address] Jul, [facility] [address] [address] Mar, Type 2 diabetes mellitus wit hout complications E11.9 ; Acute pain of right knee M25.561 and Essential hypertension I10 [place] [address] [address] Mar, [facility] [address] [address] Mar, Dysuria R30.0 [place] [address] [address] December, [place] [address] [address] Nov, [place] [address] [address] Nov, Dental examination Z01.20 [place] [address] [address] Nov, Dental examination Z01.20 [place] [address] [address] Nov, Non-intractable vomiting wit h nausea, unspecified vomiting type R11.2 ; Arthralgia, unspecified joint M25.50 ; Fever, unspecified fever cause R50.9 ; Type 2 diabetes mellitus without complications E11.9 and Tooth pain K08.89 [place] [address] [place] [address] Nov, Type 2 diabetes mellitus wit hout complications E11.9 [place] [address] [place] [id number] [place] [address] Nov, Type 2 diabetes mellitus wit hout complications E11.9 and Bronchitis J40 [place] [address] [place] [id number] [address] [place] [address] Oct, Type 2 diabetes mellitus wit hout complications E11.9 [facility] [address] [id number] [address] [place] [address] Jul, [facility] [address] [id number] [address] [place] [address] Jul, Dysuria R30.0 ; Hematuria R3 1.9 and Vaginal pain R10.2 [facility] [address] [id number] [address] [place] [address] Jul, Dysuria R30.0 ; Vaginal disc harge N89.8 and Low back strain, initial encounter S39.012A [facility] [address] [id number] [address] [place] [address] Jun, Bacterial conjunctivitis of right eye H10.9 ; Sore throat J02.9 and Acute non-recurrent maxillary sinusitis J01.00 [facility] [address] [id number] [address] [place] [address] Jun, [facility] [address] [id number] [address] [place] [address] May, [facility] [address] [id number] [address] [place] [address] Apr, [facility] [address] [id number] [address] [place] [address] 14 Apr, 2016 [facility] [address] [id number] [address] [place] [address] Apr, [facility] [address] [id number] [address] [place] [address] Apr, Type 2 diabetes mellitus wit hout complications E11.9 [facility] [address] [id number] [address] [place] [address] Mar, [facility] [address] [id number] [address] [place] [address] Feb, Bronchitis J40 [facility] [address] [facility] [id number] [address] [place] [address] Feb, Bronchitis J40 [facility] [address] [facility] [id number] [address] [place] [address] Feb, Type 2 diabetes mellitus wit hout complications E11.9 [facility] [address] [place] [id number] [address] [place] [address] Feb, [facility] [address] [place] [id number] [address] [place] [address] Feb, [facility] [address] [facility] [id number] [address] [place] [address] Feb, Type 2 diabetes mellitus wit hout complications E11.9 and Dysuria R30.0 [facility] [address] [place] [id number] [place] [address] Jan, Type 2 diabetes mellitus wit hout complications E11.9 [facility] [address] [place] [id number] [place] [address] Jan, Type 2 diabetes mellitus wit hout complications E11.9 [facility] [address] [place] [id number] [place] [address] December, Type 2 diabetes mellitus wit hout complications E11.9 [facility] [address] [place] [id number] [place] [address] Nov, Type 2 diabetes mellitus wit hout complications E11.9 [facility] [address] [place] [id number] [place] [address] Oct, Type 2 diabetes mellitus wit hout complications E11.9 ; Fever R50.9 ; Myalgia M79.1 and Cough R05 [facility] [address] [facility] [id number] [address] [place] [address] 15 Sep, 2015 Dysuria R30.0 and Cystitis N 30.90 [facility] [address] [place] [id number] [place] [address] Sep, [facility] [address] [facility] [id number] [address] [place] [address] Sep, [facility] [address] [id number] [address] [place] [id number] Aug, Dental examination Z01.20 [facility] [address] [facility] [id number] [address] [place] [address] Aug, Type 2 diabetes mellitus wit hout complications E11.9 [facility] [address] [facility] [id number] [address] [place] [address] Jul, Dysfunction of left eustachi an tube H69.82 [facility] [address] [facility] [id number] [address] [place] [address] Jun, [facility] [address] [facility] [id number] [address] [place] [address] Jun, Cellulitis L03.90 [facility] [address] [facility] [id number] [address] [place] [address] Jun, [facility] [address] [facility] [id number] [address] [place] [address] Jun, [facility] [address] [place] [id number] [address] [place] [address] Jun, [facility] [address] [facility] [id number] [address] [place] [address] May, Dermatofibroma of ankle, rig ht D23.71 [facility] [address] [facility] [id number] [address] [place] [address] May, [facility] [address] [facility] [id number] [address] [place] [address] Apr, Diabetes 250.00 and 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 [facility] [address] [facility] [id number] [address] [place] [address] Apr, [facility] [address] [facility] [id number] [address] [place] [address] Apr, [facility] [address] [facility] [id number] [address] [place] [address] Apr, Diabetes 250.00 ; Influenza vaccine administered V04.81 and Allergic rhinitis 477.9 [facility] [address] [facility] [id number] [address] [place] [address] Mar, [facility] [address] [place] [id number] [address] [place] [address] Jan, [facility] [address] [facility] [id number] [address] [place] [address] Jan, DM w/o complication type II 250.00 [facility] [address] [place] [id number] [place] [address] December, DM w/o complication type II 250.00 ; Calcaneal spur 726.73 ; Vaginitis due to Amanda 112.1 and Onychomycosis 110.1 [facility] [address] [facility] [id number] [address] [place] [address] 30 Nov, 2014 Amanda infection of genital region 112.2 [facility] [address] [place] [id number] [place] [address] 14 Nov, 2014 [facility] [address] [place] [id number] [place] [address] 13 Nov, 2014 [facility] [address] [facility] [id number] [address] [place] [address] Oct, [facility] [address] [facility] [id number] [address] [place] [address] Oct, [facility] [address] [place] [id number] [place] [address] Sep, [facility] [address] [facility] [id number] [address] [place] [address] Sep, [facility] [address] [place] [id number] [address] [place] [address] Jul, [facility] [address] [id number] [address] [place] [address], [place] [address] Jul, [facility] [address] [id number] [address] [place] [address], [place] [address] Jun, [facility] [address] [id number] [address] [place] [address], [place] [address] Jun, [facility] [address] [id number] [address] [place] [address], [place] [address] Jun, [facility] [address] [id number] [address] [place] [address], [place] [address] Jun, [facility] [address] [id number] [address] [place] [address], [place] [address] May, [facility] [address] [id number] [address] [place] [address], [place] [address] May, [facility] [address] [id number] [address] [place] [address], [place] [address] May, [facility] [address] [id number] [address] [place] [address], [place] [address] May, [facility] [address] [id number] [address] [place] [address], [place] [address] Apr, [facility] [address] [id number] [address] [place] [address], [place] [address] Apr, [facility] [address] [id number] [address] [place] [address], [place] [address] Apr, [facility] [address] [id number] [address] [place] [address], [place] [address] Apr, [facility] [address] [id number] [address] [place] [address], [place] [address] Mar, [facility] [address] [id number] [address] [place] [address], [place] [address] Mar, [facility] [address] [id number] [facility] [place] [address] Mar, [facility] [address] [id number] [address] [place] [address], [place] [address] Mar, [facility] [address] [id number] [address] [place] [address], [place] [address] Mar, [facility] [address] [id number] [address] [place] [address], [place] [address] Mar, [facility] [address] [id number] [address] [place] [address], [place] [address] Mar, [facility] [address] [id number] [address] [place] [address], [place] [address] Mar, [facility] [address] [id number] [address] [place] [address], [place] [address] Mar, [facility] [address] [id number] [address] [place] [address], [place] [address] Mar, [facility] [address] [id number] [address] [place] [address], [place] [address] Mar, [facility] [address] [id number] [address] [place] [address], [place] [address] Mar, [facility] [address] [id number] [address] [place] [address], [place] [address] Feb, [facility] [address] [id number] [address] [place] [address], [place] [address] Feb, [facility] [address] [id number] [address] [place] [address], [place] [address] Jan, [facility] [address] [id number] [address] [place] [address], [place] [address] Jan, [facility] [address] [id number] [address] [place] [address], [place] [address] Jan, [facility] [address] [id number] [address] [place] [address], [place] [address] Jan, [facility] [address] [id number] [facility] [place] [address] December, [facility] [address] [id number] [facility] [place] [address] December, [facility] [address] [id number] [address] [place] [address], [place] [address] December, [facility] [address] [id number] [address] [place] [address], [place] [address] December, [facility] [address] [id number] [address] [place] [address], [place] [address] Nov, [facility] [address] [id number] [address] [place] [address], [place] [address] Nov, [facility] [address] [id number] [address] [place] [address], [place] [address] Nov, [facility] [address] [id number] [address] [place] [address], [place] [address] Nov, [facility] [address] [id number] [address] [place] [address], [place] [address] Nov, [facility] [address] [id number] [address] [place] [address], [place] [address] Nov, [facility] [address] [id number] [address] [place] [address], [place] [address] Nov, [facility] [address] [id number] [address] [place] [address], [place] [address] Oct, [facility] [address] [id number] [address] [place] [address], [place] [address] 31 Oct, 2013 [facility] [address] [id number] [address] [place] [address], [place] [address] 28 Oct, 2013 [facility] [address] [id number] [address] [place] [address], [place] [address] 13 Oct, 2013 [facility] [address] [id number] [address] [place] [address], [place] [address] Oct, [facility] [address] [id number] [address] [place] [address], [place] [address] Oct, [facility] [address] [id number] [address] [place] [address], [place] [address] Oct, [facility] [address] [id number] [address] [place] [address], [place] [address] Sep, [facility] [address] [id number] [address] [place] [address], [place] [address] Sep, [facility] [address] [id number] [address] [place] [address], [place] [address] Sep, [facility] [address] [id number] [address] [place] [address], [place] [address] Sep, [facility] [address] [id number] [address] [place] [address], [place] [address] Aug, [facility] [address] [id number] [address] [place] [address], [place] [address] Aug, [facility] [address] [id number] [address] [place] [address], [place] [address] Aug, [facility] [address] [id number] [address] [place] [address], [place] [address] Aug, [facility] [address] [id number] [address] [place] [address], [place] [address] Jul, [facility] [address] [id number] [address] [place] [address], [place] [address] Jul, [facility] [address] [id number] [address] [place] [address], [place] [address] Apr, [facility] [address] [id number] [address] [place] [address], [place] [address] Apr, [facility] [address] [id number] [address] [place] [address], [place] [address] Mar, [facility] [address] [id number] [facility] [place] [address] Mar, [facility] [address] [id number] [address] [place] [address], [place] [address] Mar, [facility] [address] [id number] [address] [place] [address], [place] [address] Mar, [facility] [address] [id number] [address] [place] [address], [place] [address] Mar, [facility] [address] [id number] [address] [place] [address], [place] [address] Mar, [facility] [address] [id number] [address] [place] [address], [place] [address] Mar, [facility] [address] [id number] [address] [place] [address], [place] [address] Mar, [facility] [address] [id number] [address] [place] [address], [place] [address] Mar, [facility] [address] [id number] [address] [place] [address], [place] [address] Mar, [facility] [address] [id number] [address] [place] [address], [place] [address] Feb, [facility] [address] [id number] [address] [place] [address], [place] [address] Feb, [facility] [address] [id number] [address] [place] [address], [place] [address] Feb, [facility] [address] [id number] [address] [place] [address], [place] [address] Feb, [facility] [address] [id number] [address] [place] [address], [place] [address] Jan, [facility] [address] [id number] [address] [place] [address], [place] [address] Nov, [facility] [address] [id number] [address] [place] [address], [place] [address] 16 Nov, 2012 [facility] [address] [id number] [address] [place] [address], [place] [address] Nov, [facility] [address] [id number] [address] [place] [address], [place] [address] Nov, [facility] [address] [id number] [address] [place] [address], [place] [address] Oct, [facility] [address] [id number] [address] [place] [address], [place] [address] Sep, [facility] [address] [id number] [address] [place] [address], [place] [address] Sep, [facility] [address] [id number] [address] [place] [address], [place] [address] Aug, [facility] [address] [id number] [address] [place] [address], [place] [address] Jul, [facility] [address] [id number] [address] [place] [address], [place] [address] Jul, [facility] [address] [id number] [address] [place] [address], [place] [address] May, [facility] [address] [id number] [address] [place] [address], [place] [address] May, [facility] [address] [id number] [address] [place] [address], [place] [address] May, [facility] [address] [id number] [address] [place] [address], [place] [address] May, [facility] [address] [id number] [address] [place] [address], [place] [address] Apr, [facility] [address] [id number] [address] [place] [address], [place] [address] Mar, [facility] [address] [id number] [address] [place] [address], [place] [address] Mar, [facility] [address] [id number] [address] [place] [address], [place] [address] 16 Mar, 2012 [facility] [address] [id number] [address] [place] [address], [place] [address] Mar, [facility] [address] [id number] [address] [place] [address], [place] [address] Mar, [facility] [address] [id number] [address] [place] [address], [place] [address] Mar, [facility] [address] [id number] [address] [place] [address], [place] [address] Mar, [facility] [address] [id number] [address] [place] [address], [place] [address] Mar, [facility] [address] [id number] [address] [place] [address], [place] [address] Feb, [facility] [address] [address] [id number] [address] [place] [address], [place] [address] Feb, [facility] [address] [id number] [address] [place] [address], [place] [address] Jan, [facility] [address] [id number] [address] [place] [address], [place] [address] December, [facility] [address] [id number] [address] [place] [address], [place] [address] December, [facility] [address] [id number] [address] [place] [address], [place] [address] Nov, [facility] [address] [id number] [address] [place] [address], [place] [address] Nov, [facility] [address] [id number] [address] [place] [address], [place] [address] 18 Nov, 2011 [facility] [address] [id number] [address] [place] [address], [place] [address] Nov, [facility] [address] [id number] [address] [place] [address], [place] [address] Oct, [facility] [address] [id number] [address] [place] [address], [place] [address] 29 Sep, 2011 [facility] [address] [id number] [address] [place] [address], [place] [address] 21 Sep, 2011 [facility] [address] [id number] [address] [place] [address], [place] [address] 17 Sep, 2011 [facility] [address] [id number] [address] [place] [address], [place] [address] 17 Sep, 2011 [facility] [address] [id number] [address] [place] [address], [place] [address] 16 Sep, 2011 [facility] [address] [id number] [address] [place] [address], [place] [address] 16 Sep, 2011 [facility] [address] [id number] [address] [place] [address], [place] [address] 15 Sep, 2011 [facility] [address] [id number] [address] [place] [address], [place] [address] 15 Sep, 2011 [facility] [address] [id number] [address] [place] [address], [place] [address] Aug, [facility] [address] [id number] [address] [place] [address], [place] [address] Jul, [facility] [address] [id number] [address] [place] [address], [place] [address] Jul, [facility] [address] [id number] [address] [place] [address], [place] [address] Jul, [facility] [address] [id number] [address] [place] [address], [place] [address] Jun, [facility] [address] [id number] [address] [place] [address], [place] [address] Jul, [facility] [address] [id number] [address] [place] [address], [place] [address] Jul, [facility] [address] [id number] [address] [place] [phone] 16 Jul, 2010 [facility] [address] [id number] [address] [place] [phone] Jul, [facility] [address] [id number] [address] [place] [phone] Jul, [facility] [address] [id number] [address] [place] [phone] May, [facility] [address] [id number] [address] [place] [phone] May, [facility] [address] [id number] [address] [place] [address] May, [facility] [address] [id number] [address] [place] [address] Apr, [facility] [address] [id number] [address] [place] [phone] Jun, [facility] [address] [id number] [address] [place] [address] Jun, [facility] [address] [id number] [address] [place] [phone] May, [facility] [address] [id number] [address] [place] [phone] Jan, IMMUNIZATIONS No Known Immunizations SOCIAL HISTORY Never Assessed REASON FOR VISIT EMR-[facility] [place], [place] PLAN OF CARE VITAL SIGNS MEDICATIONS Unknown [...]
--- OUTSIDE RECORDS SUMMARY | 2019-11-01 20:29 | XMS REPORT ---
Author Author AnnNyasia Doctor Organization [facility] Address Unknown Phone Unavailable Care Team Providers Care Nuclear Fuel Enrichment Technician Name Role Phone Migration, Doctor Unavailable Unavailable PROBLEMS Type Condition ICD9-CM Code [id number] Code Onset Dates Condition S tatus SNOMED Code Problem Costochondritis 733.6 Active 6410 9004 Problem Grief reaction F43.21 Active 79155 5009 Problem Hyperlipidemia E78.5 Active 14046 004 Problem Unspecified cardiac dysrhythmia 427.9 Active 013959840 Problem Diabetes 250.00 Active 87563342 Problem Type 2 diabetes mellitus without complications E11 .9 Active 97462292 Problem Essential hypertension I10 Active [id number] ALLERGIES No Information ENCOUNTERS Encounter Location Date Diagnosis [place] [address] [place] [id number] [place] [address] Nov, [place] [address] [place] [id number] [place] [address] Nov, [place] [address] [place] [id number] [place] [address] Oct, URI (upper respiratory infec tion) J06.9 ; Type 2 diabetes mellitus without complications E11.9 and Hyperlipidemia E78.5 [place] [id number] [place] [address] Aug, [place] [address] [place] [id number] [place] [address] Jun, Acute nasopharyngitis J00 [place] [address] [place] [id number] [place] [address] May, Encounter for immunization Z 23 [place] [address] [place] [id number] [place] [address] Apr, [place] [address] [place] [id number] [place] [address] Apr, Type 2 diabetes mellitus wit hout complications E11.9 [facility] [address] [id number] [address] [place] [address] Apr, Type 2 diabetes mellitus wit hout complications E11.9 ; Grief reaction F43.21 and Essential hypertension I10 [facility] [address] [id number] [address] [place] [phone] Mar, Type 2 diabetes mellitus wit hout complications E11.9 [facility] [address] [id number] [address] [place] [address] Mar, Type 2 diabetes mellitus wit hout complications E11.9 [facility] [address] [id number] [address] [place] [address] Feb, [facility] [address] [id number] [address] [place] [address] Jan, [facility] [address] [id number] [address] [place] [address] Nov, Type 2 diabetes mellitus wit hout complications E11.9 [facility] [address] [id number] [address] [place] [address] Oct, [facility] [address] [id number] [address] [place] [address] Oct, Labia irritation N90.89 [facility] [address] [id number] [address] [place] [address] Sep, [facility] [address] [id number] [address] [place] [address] Sep, [facility] [address] [id number] [address] [place] [address] Sep, [facility] [address] [id number] [address] [place] [address] Aug, [facility] [address] [id number] [address] [place] [address] Jul, [facility] [address] [place] [address] Jul, [facility] [address] [address] Mar, Type 2 diabetes mellitus wit hout complications E11.9 ; Acute pain of right knee M25.561 and Essential hypertension I10 [place] [address] [address] Mar, [facility] [address] [address] Mar, Dysuria R30.0 [place] [address] [address] December, [place] [address] [address] Nov, [place] [address] [address] Nov, Dental examination Z01.20 [place] [address] [address] Nov, Dental examination Z01.20 [place] [address] [address] Nov, Non-intractable vomiting wit h nausea, unspecified vomiting type R11.2 ; Arthralgia, unspecified joint M25.50 ; Fever, unspecified fever cause R50.9 ; Type 2 diabetes mellitus without complications E11.9 and Tooth pain K08.89 [place] [address] [place] [address] Nov, Type 2 diabetes mellitus wit hout complications E11.9 [place] [address] [place] [id number] [place] [address] Nov, Type 2 diabetes mellitus wit hout complications E11.9 and Bronchitis J40 [place] [address] [place] [id number] [place] [address] Oct, Type 2 diabetes mellitus wit hout complications E11.9 [facility] [address] [id number] [address] [place] [address] Jul, [facility] [address] [id number] [address] [place] [address] Jul, Dysuria R30.0 ; Hematuria R3 1.9 and Vaginal pain R10.2 [facility] [address] [id number] [address] [place] [address] Jul, Dysuria R30.0 ; Vaginal disc harge N89.8 and Low back strain, initial encounter S39.012A [facility] [address] [id number] [address] [place] [address] Jun, Bacterial conjunctivitis of right eye H10.9 ; Sore throat J02.9 and Acute non-recurrent maxillary sinusitis J01.00 [facility] [address] [id number] [address] [place] [address] Jun, [facility] [address] [id number] [address] [place] [address] May, [facility] [address] [id number] [address] [place] [address] Apr, [facility] [address] [id number] [address] [place] [address] 14 Apr, 2016 [facility] [address] [id number] [address] [place] [address] Apr, [facility] [address] [id number] [address] [place] [address] Apr, Type 2 diabetes mellitus wit hout complications E11.9 [facility] [address] [id number] [address] [place] [address] Mar, [facility] [address] [id number] [address] [place] [address] Feb, Bronchitis J40 [facility] [address] [facility] [id number] [address] [place] [address] Feb, Bronchitis J40 [facility] [address] [facility] [id number] [address] [place] [address] Feb, Type 2 diabetes mellitus wit hout complications E11.9 [facility] [address] [place] [id number] [place] [address] Feb, [facility] [address] [place] [id number] [place] [address] Feb, [facility] [address] [facility] [id number] [address] [place] [address] Feb, Type 2 diabetes mellitus wit hout complications E11.9 and Dysuria R30.0 [facility] [address] [place] [id number] [place] [address] Jan, Type 2 diabetes mellitus wit hout complications E11.9 [facility] [address] [place] [id number] [place] [address] Jan, Type 2 diabetes mellitus wit hout complications E11.9 [facility] [address] [place] [id number] [place] [address] December, Type 2 diabetes mellitus wit hout complications E11.9 [facility] [address] [place] [id number] [place] [address] Nov, Type 2 diabetes mellitus wit hout complications E11.9 [facility] [address] [place] [id number] [place] [address] Oct, Type 2 diabetes mellitus wit hout complications E11.9 ; Fever R50.9 ; Myalgia M79.1 and Cough R05 [facility] [address] [facility] [id number] [address] [place] [address] 15 Sep, 2015 Dysuria R30.0 and Cystitis N 30.90 [facility] [address] [place] [id number] [place] [address] Sep, [facility] [address] [facility] [id number] [address] [place] [address] Sep, [facility] [address] [id number] [address] [place] [id number] Aug, Dental examination Z01.20 [facility] [address] [facility] [id number] [address] [place] [address] Aug, Type 2 diabetes mellitus wit hout complications E11.9 [facility] [address] [facility] [id number] [address] [place] [address] Jul, Dysfunction of left eustachi an tube H69.82 [facility] [address] [facility] [id number] [address] [place] [address] Jun, [facility] [address] [facility] [id number] [address] [place] [address] Jun, Cellulitis L03.90 [facility] [address] [facility] [id number] [address] [place] [address] Jun, [facility] [address] [facility] [id number] [address] [place] [address] Jun, [facility] [address] [place] [id number] [place] [address] Jun, [facility] [address] [facility] [id number] [address] [place] [address] May, Dermatofibroma of ankle, rig ht D23.71 [facility] [address] [facility] [id number] [address] [place] [address] May, [facility] [address] [facility] [id number] [address] [place] [address] Apr, Diabetes 250.00 and 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 [facility] [address] [facility] [id number] [address] [place] [address] Apr, [facility] [address] [facility] [id number] [address] [place] [address] Apr, [facility] [address] [facility] [id number] [address] [place] [address] Apr, Diabetes 250.00 ; Influenza vaccine administered V04.81 and Allergic rhinitis 477.9 [facility] [address] [facility] [id number] [address] [place] [address] Mar, [facility] [address] [place] [id number] [place] [phone] Jan, [facility] [address] [facility] [id number] [address] [place] [address] Jan, DM w/o complication type II 250.00 [facility] [address] [place] [id number] [place] [address] December, DM w/o complication type II 250.00 ; Calcaneal spur 726.73 ; Vaginitis due to Amanda 112.1 and Onychomycosis 110.1 [facility] [address] [facility] [id number] [address] [place] [address] 30 Nov, 2014 Amanda infection of genital region 112.2 [facility] [address] [place] [id number] [place] [phone] 14 Nov, 2014 [facility] [address] [place] [id number] [place] [address] 13 Nov, 2014 [facility] [address] [facility] [id number] [address] [place] [address] Oct, [facility] [address] [facility] [id number] [address] [place] [address] Oct, [facility] [address] [place] [id number] [place] [address] Sep, [facility] [address] [facility] [id number] [address] [place] [address] Sep, [facility] [address] [place] [id number] [place] [address] Jul, [facility] [address] [id number] [address] [place] [address], [place] [address] Jul, [facility] [address] [id number] [address] [place] [address], [place] [address] Jun, [facility] [address] [id number] [address] [place] [address], [place] [address] Jun, [facility] [address] [id number] [address] [place] [address], [place] [address] Jun, [facility] [address] [id number] [address] [place] [address], [place] [address] Jun, [facility] [address] [id number] [address] [place] [address], [place] [address] May, [facility] [address] [id number] [address] [place] [address], [place] [address] May, [facility] [address] [id number] [address] [place] [address], [place] [address] May, [facility] [address] [id number] [address] [place] [address], [place] [address] May, [facility] [address] [id number] [address] [place] [address], [place] [address] Apr, [facility] [address] [id number] [address] [place] [address], [place] [address] Apr, [facility] [address] [id number] [address] [place] [address], [place] [address] Apr, [facility] [address] [id number] [address] [place] [address], [place] [address] Apr, [facility] [address] [id number] [address] [place] [address], [place] [address] Mar, [facility] [address] [id number] [address] [place] [address], [place] [address] Mar, [facility] [address] [id number] [facility] [place] [address] Mar, [facility] [address] [id number] [address] [place] [address], [place] [address] Mar, [facility] [address] [id number] [address] [place] [address], [place] [address] Mar, [facility] [address] [id number] [address] [place] [address], [place] [address] Mar, [facility] [address] [id number] [address] [place] [address], [place] [address] Mar, [facility] [address] [id number] [address] [place] [address], [place] [address] Mar, [facility] [address] [id number] [address] [place] [address], [place] [address] Mar, [facility] [address] [id number] [address] [place] [address], [place] [address] Mar, [facility] [address] [id number] [address] [place] [address], [place] [address] Mar, [facility] [address] [id number] [address] [place] [address], [place] [address] Mar, [facility] [address] [id number] [address] [place] [address], [place] [address] Feb, [facility] [address] [id number] [address] [place] [address], [place] [address] Feb, [facility] [address] [id number] [address] [place] [address], [place] [address] Jan, [facility] [address] [id number] [address] [place] [address], [place] [address] Jan, [facility] [address] [id number] [address] [place] [address], [place] [address] Jan, [facility] [address] [id number] [address] [place] [address], [place] [address] Jan, [facility] [address] [id number] [facility] [place] [address] December, [facility] [address] [id number] [facility] [place] [address] December, [facility] [address] [id number] [address] [place] [address], [place] [address] December, [facility] [address] [id number] [address] [place] [address], [place] [address] December, [facility] [address] [id number] [address] [place] [address], [place] [address] Nov, [facility] [address] [id number] [address] [place] [address], [place] [address] Nov, [facility] [address] [id number] [address] [place] [address], [place] [address] Nov, [facility] [address] [id number] [address] [place] [address], [place] [address] Nov, [facility] [address] [id number] [address] [place] [address], [place] [address] Nov, [facility] [address] [id number] [address] [place] [address], [place] [address] Nov, [facility] [address] [id number] [address] [place] [address], [place] [address] Nov, [facility] [address] [id number] [address] [place] [address], [place] [address] Oct, [facility] [address] [id number] [address] [place] [address], [place] [address] 31 Oct, 2013 [facility] [address] [id number] [address] [place] [address], [place] [address] 28 Oct, 2013 [facility] [address] [id number] [address] [place] [address], [place] [address] 13 Oct, 2013 [facility] [address] [id number] [address] [place] [address], [place] [address] Oct, [facility] [address] [id number] [address] [place] [address], [place] [address] Oct, [facility] [address] [id number] [address] [place] [address], [place] [address] Oct, [facility] [address] [id number] [address] [place] [address], [place] [address] Sep, [facility] [address] [id number] [address] [place] [address], [place] [address] Sep, [facility] [address] [id number] [address] [place] [address], [place] [address] Sep, [facility] [address] [id number] [address] [place] [address], [place] [address] Sep, [facility] [address] [id number] [address] [place] [address], [place] [address] Aug, [facility] [address] [id number] [address] [place] [address], [place] [address] Aug, [facility] [address] [id number] [address] [place] [address], [place] [address] Aug, [facility] [address] [id number] [address] [place] [address], [place] [address] Aug, [facility] [address] [id number] [address] [place] [address], [place] [address] Jul, [facility] [address] [id number] [address] [place] [address], [place] [address] Jul, [facility] [address] [id number] [address] [place] [address], [place] [address] Apr, [facility] [address] [id number] [address] [place] [address], [place] [address] Apr, [facility] [address] [id number] [address] [place] [address], [place] [address] Mar, [facility] [address] [id number] [facility] [place] [address] Mar, [facility] [address] [id number] [address] [place] [address], [place] [address] Mar, [facility] [address] [id number] [address] [place] [address], [place] [address] Mar, [facility] [address] [id number] [address] [place] [address], [place] [address] Mar, [facility] [address] [id number] [address] [place] [address], [place] [address] Mar, [facility] [address] [id number] [address] [place] [address], [place] [address] Mar, [facility] [address] [id number] [address] [place] [address], [place] [address] Mar, [facility] [address] [id number] [address] [place] [address], [place] [address] Mar, [facility] [address] [id number] [address] [place] [address], [place] [address] Mar, [facility] [address] [id number] [address] [place] [address], [place] [address] Feb, [facility] [address] [id number] [address] [place] [address], [place] [address] Feb, [facility] [address] [id number] [address] [place] [address], [place] [address] Feb, [facility] [address] [id number] [address] [place] [address], [place] [address] Feb, [facility] [address] [id number] [address] [place] [address], [place] [address] Jan, [facility] [address] [id number] [address] [place] [address], [place] [address] Nov, [facility] [address] [id number] [address] [place] [address], [place] [address] 16 Nov, 2012 [facility] [address] [id number] [address] [place] [address], [place] [address] Nov, [facility] [address] [id number] [address] [place] [address], [place] [address] Nov, [facility] [address] [id number] [address] [place] [address], [place] [address] Oct, [facility] [address] [id number] [address] [place] [address], [place] [address] Sep, [facility] [address] [id number] [address] [place] [address], [place] [address] Sep, [facility] [address] [id number] [address] [place] [address], [place] [address] Aug, [facility] [address] [id number] [address] [place] [address], [place] [address] Jul, [facility] [address] [id number] [address] [place] [address], [place] [address] Jul, [facility] [address] [id number] [address] [place] [address], [place] [address] May, [facility] [address] [id number] [address] [place] [address], [place] [address] May, [facility] [address] [id number] [address] [place] [address], [place] [address] May, [facility] [address] [id number] [address] [place] [address], [place] [address] May, [facility] [address] [id number] [address] [place] [address], [place] [address] Apr, [facility] [address] [id number] [address] [place] [address], [place] [address] Mar, [facility] [address] [id number] [address] [place] [address], [place] [address] Mar, [facility] [address] [id number] [address] [place] [address], [place] [address] 16 Mar, 2012 [facility] [address] [id number] [address] [place] [address], [place] [address] Mar, [facility] [address] [id number] [address] [place] [address], [place] [address] Mar, [facility] [address] [id number] [address] [place] [address], [place] [address] Mar, [facility] [address] [id number] [address] [place] [address], [place] [address] Mar, [facility] [address] [id number] [address] [place] [address], [place] [address] Mar, [facility] [address] [id number] [address] [place] [address], [place] [address] Feb, [facility] [address] [id number] [address] [place] [address], [place] [address] Feb, [facility] [address] [id number] [address] [place] [address], [place] [address] Jan, [facility] [address] [id number] [address] [place] [address], [place] [address] December, [facility] [address] [id number] [address] [place] [address], [place] [address] December, [facility] [address] [address] [id number] [address] [place] [address], [place] [address] Nov, [facility] [address] [id number] [address] [place] [address], [place] [address] Nov, [facility] [address] [id number] [address] [place] [address], [place] [address] 18 Nov, 2011 [facility] [address] [id number] [address] [place] [address], [place] [address] Nov, [facility] [address] [id number] [address] [place] [address], [place] [address] Oct, [facility] [address] [id number] [address] [place] [address], [place] [address] 29 Sep, 2011 [facility] [address] [id number] [address] [place] [address], [place] [address] 21 Sep, 2011 [facility] [address] [id number] [address] [place] [address], [place] [address] 17 Sep, 2011 [facility] [address] [id number] [address] [place] [address], [place] [address] 17 Sep, 2011 [facility] [address] [id number] [address] [place] [address], [place] [address] 16 Sep, 2011 [facility] [address] [id number] [address] [place] [address], [place] [address] 16 Sep, 2011 [facility] [address] [id number] [address] [place] [address], [place] [address] 15 Sep, 2011 [facility] [address] [id number] [address] [place] [address], [place] [address] 15 Sep, 2011 [facility] [address] [id number] [address] [place] [address], [place] [address] Aug, [facility] [address] [id number] [address] [place] [address], [place] [address] Jul, [facility] [address] [id number] [address] [place] [address], [place] [address] Jul, [facility] [address] [id number] [address] [place] [address], [place] [address] Jul, [facility] [address] [id number] [address] [place] [address], [place] [address] Jun, [facility] [address] [id number] [address] [place] [address], [place] [address] Jul, [facility] [address] [id number] [address] [place] [address], [place] [address] Jul, [facility] [address] [id number] [address] [place] [phone] 16 Jul, 2010 [facility] [address] [id number] [address] [place] [phone] Jul, [facility] [address] [id number] [address] [place] [phone] Jul, [facility] [address] [id number] [address] [place] [phone] May, [facility] [address] [id number] [address] [place] [id number] May, [facility] [address] [id number] [address] [place] [phone] May, [facility] [address] [id number] [address] [place] [phone] Apr, [facility] [address] [id number] [address] [place] [phone] Jun, [facility] [address] [id number] [address] [place] [id number] Jun, [facility] [address] [id number] [address] [place] [phone] May, [facility] [address] [id number] [address] [place] [id number] Jan, IMMUNIZATIONS No Known Immunizations SOCIAL HISTORY Never Assessed REASON FOR VISIT EMR-[facility] PLAN OF CARE VITAL SIGNS MEDICATIONS Unknown [...]
--- OUTSIDE RECORDS SUMMARY | 2019-11-01 20:29 | XMS REPORT ---
Author Author AnnNyasia Doctor Organization [facility] Address Unknown Phone Unavailable Care Team Providers Care Scientific Research Associate Name Role Phone Migration, Doctor Unavailable Unavailable PROBLEMS Type Condition ICD9-CM Code BTM35-DE Code Onset Dates Condition S tatus SNOMED Code Problem Costochondritis 733.6 Active 6410 9004 Problem Grief reaction F43.21 Active 57450 5009 Problem Hyperlipidemia E78.5 Active 24322 004 Problem Unspecified cardiac dysrhythmia 427.9 Active 104703051 Problem Diabetes 250.00 Active 18041027 Problem Type 2 diabetes mellitus without complications E11 .9 Active 11060513 Problem Essential hypertension I10 Active [id number] ALLERGIES No Information ENCOUNTERS Encounter Location Date Diagnosis [place] [address] [place] [id number] [place] [address] Nov, [place] [address] [place] [id number] [place] [address] Nov, [place] [address] [place] [id number] [place] [address] Oct, URI (upper respiratory infec tion) J06.9 ; Type 2 diabetes mellitus without complications E11.9 and Hyperlipidemia E78.5 [place] [id number] [place] [phone] Aug, [place] [address] [place] [id number] [place] [address] Jun, Acute nasopharyngitis J00 [place] [address] [place] [id number] [place] [address] May, Encounter for immunization Z 23 [place] [address] [place] [id number] [place] [phone] Apr, [place] [address] [place] [id number] [place] [address] Apr, Type 2 diabetes mellitus wit hout complications E11.9 [facility] [address] [id number] [address] [place] [address] Apr, Type 2 diabetes mellitus wit hout complications E11.9 ; Grief reaction F43.21 and Essential hypertension I10 [facility] [address] [id number] [address] [place] [phone] Mar, Type 2 diabetes mellitus wit hout complications E11.9 [facility] [address] [id number] [address] [place] [address] Mar, Type 2 diabetes mellitus wit hout complications E11.9 [facility] [address] [id number] [address] [place] [address] Feb, [facility] [address] [id number] [address] [place] [address] Jan, [facility] [address] [id number] [address] [place] [address] Nov, Type 2 diabetes mellitus wit hout complications E11.9 [facility] [address] [id number] [address] [place] [address] Oct, [facility] [address] [id number] [address] [place] [address] Oct, Labia irritation N90.89 [facility] [address] [id number] [address] [place] [address] Sep, [facility] [address] [id number] [address] [place] [address] Sep, [facility] [address] [id number] [address] [place] [address] Sep, [facility] [address] [id number] [address] [place] [address] Aug, [facility] [address] [id number] [address] [place] [phone] Jul, [facility] [address] [place] [address] Jul, [facility] [address] [address] Mar, Type 2 diabetes mellitus wit hout complications E11.9 ; Acute pain of right knee M25.561 and Essential hypertension I10 [place] [address] [address] Mar, [facility] [address] [address] Mar, Dysuria R30.0 [place] [address] [address] December, [place] [address] [address] Nov, [place] [address] [address] Nov, Dental examination Z01.20 [place] [address] [address] Nov, Dental examination Z01.20 [place] [address] [address] Nov, Non-intractable vomiting wit h nausea, unspecified vomiting type R11.2 ; Arthralgia, unspecified joint M25.50 ; Fever, unspecified fever cause R50.9 ; Type 2 diabetes mellitus without complications E11.9 and Tooth pain K08.89 [place] [id number] [place] [address] Nov, Type 2 diabetes mellitus wit hout complications E11.9 [place] [address] [place] [id number] [place] [address] Nov, Type 2 diabetes mellitus wit hout complications E11.9 and Bronchitis J40 [place] [address] [place] [id number] [address] [place] [address] Oct, Type 2 diabetes mellitus wit hout complications E11.9 [facility] [address] [id number] [address] [place] [address] Jul, [facility] [address] [id number] [address] [place] [address] Jul, Dysuria R30.0 ; Hematuria R3 1.9 and Vaginal pain R10.2 [facility] [address] [id number] [address] [place] [address] Jul, Dysuria R30.0 ; Vaginal disc harge N89.8 and Low back strain, initial encounter S39.012A [facility] [address] [id number] [address] [place] [address] Jun, Bacterial conjunctivitis of right eye H10.9 ; Sore throat J02.9 and Acute non-recurrent maxillary sinusitis J01.00 [facility] [address] [id number] [address] [place] [address] Jun, [facility] [address] [id number] [address] [place] [address] May, [facility] [address] [id number] [address] [place] [address] Apr, [facility] [address] [id number] [address] [place] [address] 14 Apr, 2016 [facility] [address] [id number] [address] [place] [address] Apr, [facility] [address] [id number] [address] [place] [address] Apr, Type 2 diabetes mellitus wit hout complications E11.9 [facility] [address] [id number] [address] [place] [id number] Mar, [facility] [address] [id number] [address] [place] [phone] Feb, Bronchitis J40 [facility] [address] [facility] [id number] [address] [place] [phone] Feb, Bronchitis J40 [facility] [address] [facility] [id number] [address] [place] [phone] Feb, Type 2 diabetes mellitus wit hout complications E11.9 [facility] [address] [place] [id number] [address] [place] [phone] Feb, [facility] [address] [place] [id number] [address] [place] [address] Feb, [facility] [address] [facility] [id number] [address] [place] [address] Feb, Type 2 diabetes mellitus wit hout complications E11.9 and Dysuria R30.0 [facility] [address] [place] [id number] [address] [place] [id number] Jan, Type 2 diabetes mellitus wit hout complications E11.9 [facility] [address] [place] [id number] [place] [address] Jan, Type 2 diabetes mellitus wit hout complications E11.9 [facility] [address] [place] [id number] [place] [address] December, Type 2 diabetes mellitus wit hout complications E11.9 [facility] [address] [place] [id number] [address] [place] [phone] Nov, Type 2 diabetes mellitus wit hout complications E11.9 [facility] [address] [place] [id number] [address] [place] [address] Oct, Type 2 diabetes mellitus wit hout complications E11.9 ; Fever R50.9 ; Myalgia M79.1 and Cough R05 [facility] [address] [facility] [id number] [address] [place] [address] 15 Sep, 2015 Dysuria R30.0 and Cystitis N 30.90 [facility] [address] [place] [id number] [address] [place] [phone] Sep, [facility] [address] [facility] [id number] [address] [place] [phone] Sep, [facility] [address] [id number] [address] [place] [id number] Aug, Dental examination Z01.20 [facility] [address] [facility] [id number] [address] [place] [phone] Aug, Type 2 diabetes mellitus wit hout complications E11.9 [facility] [address] [facility] [id number] [address] [place] [address] Jul, Dysfunction of left eustachi an tube H69.82 [facility] [address] [facility] [id number] [address] [place] [address] Jun, [facility] [address] [facility] [id number] [address] [place] [address] Jun, Cellulitis L03.90 [facility] [address] [facility] [id number] [address] [place] [address] Jun, [facility] [address] [facility] [id number] [address] [place] [phone] Jun, [facility] [address] [place] [id number] [address] [place] [phone] Jun, [facility] [address] [facility] [id number] [address] [place] [phone] May, Dermatofibroma of ankle, rig ht D23.71 [facility] [address] [facility] [id number] [address] [place] [address] May, [facility] [address] [facility] [id number] [address] [place] [phone] Apr, Diabetes 250.00 and 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 [facility] [address] [facility] [id number] [address] [place] [phone] Apr, [facility] [address] [facility] [id number] [address] [place] [phone] Apr, [facility] [address] [facility] [id number] [address] [place] [phone] Apr, Diabetes 250.00 ; Influenza vaccine administered V04.81 and Allergic rhinitis 477.9 [facility] [address] [facility] [id number] [address] [place] [address] Mar, [facility] [address] [place] [id number] [address] [place] [phone] Jan, [facility] [address] [facility] [id number] [address] [place] [phone] Jan, DM w/o complication type II 250.00 [facility] [address] [place] [id number] [address] [place] [address] December, DM w/o complication type II 250.00 ; Calcaneal spur 726.73 ; Vaginitis due to Amanda 112.1 and Onychomycosis 110.1 [facility] [address] [facility] [id number] [address] [place] [phone] 30 Nov, 2014 Amanda infection of genital region 112.2 [facility] [address] [place] [id number] [address] [place] [phone] 14 Nov, 2014 [facility] [address] [place] [id number] [address] [place] [phone] 13 Nov, 2014 [facility] [address] [facility] [id number] [address] [place] [phone] Oct, [facility] [address] [facility] [id number] [address] [place] [phone] Oct, [facility] [address] [place] [id number] [address] [place] [phone] Sep, [facility] [address] [facility] [id number] [address] [place] [phone] Sep, [facility] [address] [place] [id number] [address] [place] [phone] Jul, [facility] [address] [id number] [address] [place] [address], [place] [address] Jul, [facility] [address] [id number] [address] [place] [address], [place] [address] Jun, [facility] [address] [id number] [address] [place] [address], [place] [address] Jun, [facility] [address] [id number] [address] [place] [address], [place] [address] Jun, [facility] [address] [id number] [address] [place] [address], [place] [address] Jun, [facility] [address] [id number] [address] [place] [address], [place] [address] May, [facility] [address] [id number] [address] [place] [address], [place] [address] May, [facility] [address] [id number] [address] [place] [address], [place] [address] May, [facility] [address] [id number] [address] [place] [address], [place] [address] May, [facility] [address] [id number] [address] [place] [address], [place] [address] Apr, [facility] [address] [id number] [address] [place] [address], [place] [address] Apr, [facility] [address] [id number] [address] [place] [address], [place] [address] Apr, [facility] [address] [id number] [address] [place] [address], [place] [address] Apr, [facility] [address] [id number] [address] [place] [address], [place] [address] Mar, [facility] [address] [id number] [address] [place] [address], [place] [address] Mar, [facility] [address] [id number] [facility] [place] [address] Mar, [facility] [address] [id number] [address] [place] [address], [place] [address] Mar, [facility] [address] [id number] [address] [place] [address], [place] [address] Mar, [facility] [address] [id number] [address] [place] [address], [place] [address] Mar, [facility] [address] [id number] [address] [place] [address], [place] [address] Mar, [facility] [address] [id number] [address] [place] [address], [place] [address] Mar, [facility] [address] [id number] [address] [place] [address], [place] [address] Mar, [facility] [address] [id number] [address] [place] [address], [place] [address] Mar, [facility] [address] [id number] [address] [place] [address], [place] [address] Mar, [facility] [address] [id number] [address] [place] [address], [place] [address] Mar, [facility] [address] [id number] [address] [place] [address], [place] [address] Feb, [facility] [address] [id number] [address] [place] [address], [place] [address] Feb, [facility] [address] [id number] [address] [place] [address], [place] [address] Jan, [facility] [address] [id number] [address] [place] [address], [place] [address] Jan, [facility] [address] [id number] [address] [place] [address], [place] [address] Jan, [facility] [address] [id number] [address] [place] [address], [place] [address] Jan, [facility] [address] [id number] [facility] [place] [address] December, [facility] [address] [id number] [facility] [place] [address] December, [facility] [address] [id number] [address] [place] [address], [place] [address] December, [facility] [address] [id number] [address] [place] [address], [place] [address] December, [facility] [address] [id number] [address] [place] [address], [place] [address] Nov, [facility] [address] [id number] [address] [place] [address], [place] [address] Nov, [facility] [address] [id number] [address] [place] [address], [place] [address] Nov, [facility] [address] [id number] [address] [place] [address], [place] [address] Nov, [facility] [address] [id number] [address] [place] [address], [place] [address] Nov, [facility] [address] [id number] [address] [place] [address], [place] [address] Nov, [facility] [address] [id number] [address] [place] [address], [place] [address] Nov, [facility] [address] [id number] [address] [place] [address], [place] [address] Oct, [facility] [address] [id number] [address] [place] [address], [place] [address] 31 Oct, 2013 [facility] [address] [id number] [address] [place] [address], [place] [address] 28 Oct, 2013 [facility] [address] [id number] [address] [place] [address], [place] [address] 13 Oct, 2013 [facility] [address] [id number] [address] [place] [address], [place] [address] Oct, [facility] [address] [id number] [address] [place] [address], [place] [address] Oct, [facility] [address] [id number] [address] [place] [address], [place] [address] Oct, [facility] [address] [id number] [address] [place] [address], [place] [address] Sep, [facility] [address] [id number] [address] [place] [address], [place] [address] Sep, [facility] [address] [id number] [address] [place] [address], [place] [address] Sep, [facility] [address] [id number] [address] [place] [address], [place] [address] Sep, [facility] [address] [id number] [address] [place] [address], [place] [address] Aug, [facility] [address] [id number] [address] [place] [address], [place] [address] Aug, [facility] [address] [id number] [address] [place] [address], [place] [address] Aug, [facility] [address] [id number] [address] [place] [address], [place] [address] Aug, [facility] [address] [id number] [address] [place] [address], [place] [address] Jul, [facility] [address] [id number] [address] [place] [address], [place] [address] Jul, [facility] [address] [id number] [address] [place] [address], [place] [address] Apr, [facility] [address] [id number] [address] [place] [address], [place] [address] Apr, [facility] [address] [id number] [address] [place] [address], [place] [address] Mar, [facility] [address] [id number] [facility] [place] [address] Mar, [facility] [address] [id number] [address] [place] [address], [place] [address] Mar, [facility] [address] [id number] [address] [place] [address], [place] [id number] Mar, [facility] [address] [id number] [address] [place] [address], [place] [id number] Mar, [facility] [address] [id number] [address] [place] [address], [place] [id number] Mar, [facility] [address] [id number] [address] [place] [address], [place] [address] Mar, [facility] [address] [id number] [address] [place] [address], [place] [id number] Mar, [facility] [address] [id number] [address] [place] [address], [place] [id number] Mar, [facility] [address] [id number] [address] [place] [address], [place] [address] Mar, [facility] [address] [id number] [address] [place] [address], [place] [id number] Feb, [facility] [address] [id number] [address] [place] [address], [place] [id number] Feb, [facility] [address] [id number] [address] [place] [address], [place] [address] Feb, [facility] [address] [id number] [address] [place] [address], [place] [address] Feb, [facility] [address] [id number] [address] [place] [address], [place] [address] Jan, [facility] [address] [id number] [address] [place] [address], [place] [address] Nov, [facility] [address] [id number] [address] [place] [address], [place] [id number] 16 Nov, 2012 [facility] [address] [id number] [address] [place] [address], [place] [address] Nov, [facility] [address] [id number] [address] [place] [address], [place] [address] Nov, [facility] [address] [id number] [address] [place] [address], [place] [id number] Oct, [facility] [address] [id number] [address] [place] [address], [place] [address] Sep, [facility] [address] [id number] [address] [place] [address], [place] [id number] Sep, [facility] [address] [id number] [address] [place] [address], [place] [id number] Aug, [facility] [address] [id number] [address] [place] [address], [place] [address] Jul, [facility] [address] [id number] [address] [place] [address], [place] [address] Jul, [facility] [address] [id number] [address] [place] [address], [place] [id number] May, [facility] [address] [id number] [address] [place] [address], [place] [address] May, [facility] [address] [id number] [address] [place] [address], [place] [id number] May, [facility] [address] [id number] [address] [place] [address], [place] [id number] May, [facility] [address] [id number] [address] [place] [address], [place] [id number] Apr, [facility] [address] [id number] [address] [place] [address], [place] [id number] Mar, [facility] [address] [id number] [address] [place] [address], [place] [id number] Mar, [facility] [address] [id number] [address] [place] [address], [place] [id number] 16 Mar, 2012 [facility] [address] [id number] [address] [place] [address], [place] [address] Mar, [facility] [address] [id number] [address] [place] [address], [place] [id number] Mar, [facility] [address] [id number] [address] [place] [address], [place] [address] Mar, [facility] [address] [id number] [address] [place] [address], [place] [id number] Mar, [facility] [address] [id number] [address] [place] [address], [place] [address] Mar, [facility] [address] [id number] [address] [place] [address], [place] [address] Feb, [facility] [address] [id number] [address] [place] [address], [place] [address] Feb, [facility] [address] [id number] [address] [place] [address], [place] [address] Jan, [facility] [address] [id number] [address] [place] [address], [place] [id number] December, [facility] [address] [id number] [address] [place] [address], [place] [address] December, [facility] [address] [id number] [address] [place] [address], [place] [address] Nov, [facility] [address] [id number] [address] [place] [address], [place] [id number] Nov, [facility] [address] [id number] [address] [place] [address], [place] [id number] 18 Nov, 2011 [facility] [address] [id number] [address] [place] [address], [place] [address] Nov, [facility] [address] [id number] [address] [place] [address], [place] [address] Oct, [facility] [address] [id number] [address] [place] [address], [place] [id number] 29 Sep, 2011 [facility] [address] [id number] [address] [place] [address], [place] [id number] 21 Sep, 2011 [facility] [address] [id number] [address] [place] [address], [place] [id number] 17 Sep, 2011 [facility] [address] [id number] [address] [place] [address], [place] [id number] 17 Sep, 2011 [facility] [address] [id number] [address] [place] [address], [place] [address] 16 Sep, 2011 [facility] [address] [id number] [address] [place] [address], [place] [id number] 16 Sep, 2011 [facility] [address] [id number] [address] [place] [address], [place] [id number] 15 Sep, 2011 [facility] [address] [id number] [address] [place] [address], [place] [id number] 15 Sep, 2011 [facility] [address] [id number] [address] [place] [address], [place] [address] Aug, [facility] [address] [id number] [address] [place] [address], [place] [address] Jul, [facility] [address] [id number] [address] [place] [address], [place] [address] Jul, [facility] [address] [id number] [address] [place] [address], [place] [id number] Jul, [facility] [address] [id number] [address] [place] [address], [place] [id number] Jun, [facility] [address] [id number] [address] [place] [address], [place] [id number] Jul, [facility] [address] [id number] [address] [place] [address], [place] [address] Jul, [facility] [address] [id number] [address] [place] [id number] 16 Jul, 2010 [facility] [address] [id number] [address] [place] [id number] Jul, [facility] [address] [id number] [address] [place] [id number] Jul, [facility] [address] [id number] [address] [place] [id number] May, [facility] [address] [id number] [address] [place] [id number] May, [facility] [address] [id number] [address] [place] [id number] May, [facility] [address] [id number] [address] [place] [id number] Apr, [facility] [address] [id number] [address] [place] [id number] Jun, [facility] [address] [id number] [address] [place] [id number] Jun, [facility] [address] [id number] [address] [place] [id number] May, [facility] [address] [id number] [address] [place] [id number] Jan, IMMUNIZATIONS No Known Immunizations SOCIAL HISTORY Never Assessed REASON FOR VISIT [place] [place] VITAL SIGNS MEDICATIONS Unknown [...]
--- OUTSIDE RECORDS SUMMARY | 2019-11-01 20:29 | XMS REPORT ---
Author Author Nyasia BRAND Organization [facility] Address [address] [place] [address] Care Team Providers Care Safety Representative Name Role Phone ADRIANA BRAND Unavailable PROBLEMS Type Condition ICD9-CM Code TKB11-TQ Code Onset Dates Condition S tatus SNOMED Code Problem Costochondritis 733.6 Active 6410 9004 Problem Grief reaction F43.21 Active 13434 5009 Problem Hyperlipidemia E78.5 Active 52664 004 Problem Unspecified cardiac dysrhythmia 427.9 Active 176528695 Problem Diabetes 250.00 Active 37672598 Problem Type 2 diabetes mellitus without complications E11 .9 Active 52615858 Problem Essential hypertension I10 Active [id number] ALLERGIES Substance Reaction Event Type Date Status Metformin HCl Black outs Drug Allergy Oct, Active Glucotrol XL headache Drug Allergy Oct, Active Doxycycline Hyclate nausea Drug Allergy Oct, Active Shrimp (Diagnostic) anaphylaxis Drug Allergy Oct, Active ENCOUNTERS Encounter Location Date Diagnosis [facility] [address] [id number] [address] [place] [phone] Nov, [facility] [id number] [place] [address] Nov, [facility] [address] [id number] [address] [place] [phone] Oct, URI (upper respiratory infec tion) J06.9 ; Type 2 diabetes mellitus without complications E11.9 and Hyperlipidemia E78.5 [facility] [address] [id number] [address] [place] [phone] Aug, [facility] [address] [id number] [address] [place] [id number] Jun, Acute nasopharyngitis J00 [facility] [id number] [place] [address] May, Encounter for immunization Z 23 [facility] [address] [id number] [address] [place] [id number] 20 Apr, 2018 [facility] [address] [facility] [id number] [address] [place] [id number] Apr, Type 2 diabetes mellitus wit hout complications E11.9 [facility] [address] [id number] [address] [place] [address] Apr, Type 2 diabetes mellitus wit hout complications E11.9 ; Grief reaction F43.21 and Essential hypertension I10 [facility] [address] [id number] [address] [place] [id number] Mar, Type 2 diabetes mellitus wit hout complications E11.9 [facility] [address] [facility] [id number] [address] [place] [address] Mar, Type 2 diabetes mellitus wit hout complications E11.9 [facility] [address] [id number] [address] [place] [address] Feb, [facility] [address] [id number] [address] [place] [phone] Jan, [facility] [address] [facility] [id number] [address] [place] [phone] Nov, Type 2 diabetes mellitus wit hout complications E11.9 [facility] [address] [id number] [address] [place] [phone] Oct, [facility] [address] [facility] [id number] [address] [place] [address] Oct, Labia irritation N90.89 [facility] [address] [id number] [address] [place] [address] Sep, [facility] [address] [facility] [id number] [address] [place] [address] Sep, [facility] [address] [facility] [id number] [address] [place] [phone] Sep, [facility] [address] [facility] [id number] [address] [place] [phone] Aug, [facility] [address] [facility] [id number] [address] [place] [id number] Jul, [facility] [address] [facility] [id number] [address] [place] [address] Jul, [facility] [address] [facility] [id number] [place] [address] Mar, Type 2 diabetes mellitus wit hout complications E11.9 ; Acute pain of right knee M25.561 and Essential hypertension I10 [facility] [address] [id number] [address] [place] [phone] Mar, [facility] [id number] [place] [address] Mar, Dysuria R30.0 [facility] [address] [facility] [id number] [address] [place] [phone] December, [facility] [id number] [place] [address] Nov, [facility] [address] [id number] [address] [place] [id number] Nov, Dental examination Z01.20 [facility] [address] [id number] [address] [place] [address] Nov, Dental examination Z01.20 [facility] [address] [id number] [address] [place] [address] Nov, Non-intractable vomiting wit h nausea, unspecified vomiting type R11.2 ; Arthralgia, unspecified joint M25.50 ; Fever, unspecified fever cause R50.9 ; Type 2 diabetes mellitus without complications E11.9 and Tooth pain K08.89 [facility] [address] [id number] [address] [place] [phone] Nov, Type 2 diabetes mellitus wit hout complications E11.9 [facility] [address] [id number] [address] [place] [address] Nov, Type 2 diabetes mellitus wit hout complications E11.9 and Bronchitis J40 [facility] [address] [id number] [address] [place] [phone] Oct, Type 2 diabetes mellitus wit hout complications E11.9 [facility] [address] [id number] [address] [place] [address] Jul, [facility] [address] [id number] [address] [place] [phone] Jul, Dysuria R30.0 ; Hematuria R3 1.9 and Vaginal pain R10.2 [address] [id number] [address] [place] [address] Jul, Dysuria R30.0 ; Vaginal disc harge N89.8 and Low back strain, initial encounter S39.012A [facility] [address] [id number] [address] [place] [id number] Jun, Bacterial conjunctivitis of right eye H10.9 ; Sore throat J02.9 and Acute non-recurrent maxillary sinusitis J01.00 [facility] [address] [id number] [address] [place] [phone] Jun, [facility] [address] [id number] [address] [place] [id number] May, [facility] [address] [id number] [address] [place] [phone] Apr, [facility] [address] [id number] [address] [place] [phone] Apr, [facility] [address] [id number] [address] [place] [id number] Apr, [facility] [address] [id number] [address] [place] [address] Apr, Type 2 diabetes mellitus wit hout complications E11.9 [facility] [address] [id number] [address] [place] [address] Mar, [facility] [address] [id number] [address] [place] [phone] Feb, Bronchitis J40 [facility] [address] [facility] [id number] [address] [place] [phone] Feb, Bronchitis J40 [facility] [address] [id number] [address] [place] [id number] Feb, Type 2 diabetes mellitus wit hout complications E11.9 [facility] [address] [facility] [id number] [address] [place] [phone] Feb, [facility] [address] [facility] [id number] [address] [place] [phone] Feb, [facility] [address] [facility] [id number] [address] [place] [phone] Feb, Type 2 diabetes mellitus wit hout complications E11.9 and Dysuria R30.0 [facility] [address] [facility] [id number] [address] [place] [phone] Jan, Type 2 diabetes mellitus wit hout complications E11.9 [facility] [address] [facility] [id number] [address] [place] [phone] Jan, Type 2 diabetes mellitus wit hout complications E11.9 [facility] [address] [facility] [id number] [address] [place] [id number] December, Type 2 diabetes mellitus wit hout complications E11.9 [facility] [address] [facility] [id number] [address] [place] [id number] Nov, Type 2 diabetes mellitus wit hout complications E11.9 [facility] [address] [facility] [id number] [address] [place] [phone] Oct, Type 2 diabetes mellitus wit hout complications E11.9 ; Fever R50.9 ; Myalgia M79.1 and Cough R05 [facility] [address] [facility] [id number] [address] [place] [id number] 15 Sep, 2015 Dysuria R30.0 and Cystitis N 30.90 [facility] [address] [facility] [id number] [address] [place] [phone] 05 Sep, 2015 [facility] [address] [facility] [id number] [address] [place] [phone] Sep, [facility] [address] [id number] [address] [place] [id number] Aug, Dental examination Z01.20 [facility] [address] [id number] [address] [place] [id number] Aug, Type 2 diabetes mellitus wit hout complications E11.9 [facility] [address] [id number] [address] [place] [id number] Jul, Dysfunction of left eustachi an tube H69.82 [facility] [address] [id number] [address] [place] [id number] Jun, [facility] [address] [id number] [address] [place] [id number] Jun, Cellulitis L03.90 [facility] [address] [facility] [id number] [address] [place] [id number] Jun, [facility] [address] [id number] [address] [place] [id number] Jun, [facility] [address] [facility] [id number] [address] [place] [id number] Jun, [facility] [address] [id number] [address] [place] [phone] May, Dermatofibroma of ankle, rig ht D23.71 [facility] [address] [facility] [id number] [address] [place] [id number] May, [facility] [address] [id number] [address] [place] [phone] 29 Apr, 2015 Diabetes 250.00 and 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 [facility] [address] [id number] [address] [place] [id number] Apr, [facility] [address] [id number] [address] [place] [id number] Apr, [facility] [address] [facility] [id number] [address] [place] [id number] Apr, Diabetes 250.00 ; Influenza vaccine administered V04.81 and Allergic rhinitis 477.9 [facility] [address] [id number] [address] [place] [phone] Mar, [facility] [address] [facility] [id number] [address] [place] [phone] Jan, [facility] [address] [facility] [id number] [address] [place] [phone] Jan, DM w/o complication type II 250.00 [facility] [address] [id number] [address] [place] [phone] December, DM w/o complication type II 250.00 ; Calcaneal spur 726.73 ; Vaginitis due to Amanda 112.1 and Onychomycosis 110.1 [facility] [address] [facility] [id number] [address] [place] [phone] 30 Nov, 2014 Amanda infection of genital region 112.2 [facility] [address] [facility] [id number] [address] [place] [phone] 14 Nov, 2014 [facility] [address] [facility] [id number] [address] [place] [phone] Nov, [facility] [address] [facility] [id number] [address] [place] [phone] Oct, [facility] [address] [facility] [id number] [address] [place] [phone] Oct, [facility] [address] [id number] [address] [place] [address], [place] [address] Sep, [facility] [address] [id number] [address] [place] [address], [place] [address] Sep, [facility] [place] [facility] [address] [id number] [address] [place] [address], [place] [address] Jul, [facility] [place] [facility] [address] [id number] [address] [place] [address], [place] [address] Jul, [facility] [place] [facility] [address] [id number] [address] [place] [address], [place] [address] Jun, [facility] [place] [facility] [address] [id number] [address] [place] [address], [place] [address] Jun, [facility] [place] [facility] [address] [id number] [address] [place] [address], [place] [address] Jun, [facility] [address] [id number] [address] [place] [address], [place] [address] Jun, [facility] [place] [facility] [address] [id number] [address] [place] [address], [place] [address] May, [facility] [place] [facility] [address] [id number] [address] [place] [address], [place] [address] May, [facility] [place] [facility] [address] [id number] [address] [place] [address], [place] [address] May, [facility] [place] [facility] [address] [id number] [address] [place] [address], [place] [address] May, [facility] [place] [facility] [address] [id number] [address] [place] [address], [place] [address] Apr, [facility] [place] [facility] [address] [id number] [address] [place] [address], [place] [address] Apr, [facility] [place] [facility] [address] [id number] [address] [place] [address], [place] [address] Apr, [facility] [place] [facility] [address] [id number] [address] [place] [address], [place] [address] Apr, [facility] [place] [facility] [address] [id number] [facility] [place] [address] Mar, [facility] [place] [facility] [address] [id number] [address] [place] [address], [place] [address] Mar, [facility] [place] [facility] [address] [id number] [address] [place] [address], [place] [address] Mar, [facility] [place] [facility] [address] [id number] [address] [place] [address], [place] [address] Mar, [facility] [address] [id number] [address] [place] [address], [place] [address] Mar, [facility] [address] [id number] [address] [place] [address], [place] [address] Mar, [facility] [address] [id number] [address] [place] [address], [place] [address] Mar, [facility] [address] [id number] [address] [place] [address], [place] [address] Mar, [facility] [address] [id number] [address] [place] [address], [place] [address] Mar, [facility] [address] [id number] [address] [place] [address], [place] [address] Mar, [facility] [address] [id number] [address] [place] [address], [place] [address] Mar, [facility] [place] [facility] [address] [id number] [address] [place] [address], [place] [address] Mar, [facility] [place] [facility] [address] [id number] [address] [place] [address], [place] [address] Feb, [facility] [place] [facility] [address] [id number] [address] [place] [address], [place] [address] Feb, [facility] [place] [facility] [address] [id number] [address] [place] [address], [place] [address] Jan, [facility] [place] [facility] [address] [id number] [address] [place] [address], [place] [address] Jan, [facility] [address] [id number] [facility] [place] [address] Jan, [facility] [address] [id number] [address] [place] [address], [place] [address] Jan, [facility] [address] [id number] [address] [place] [address], [place] [address] December, [facility] [address] [id number] [address] [place] [address], [place] [address] December, [facility] [address] [id number] [address] [place] [address], [place] [address] December, [facility] [address] [id number] [address] [place] [address], [place] [address] December, [facility] [address] [id number] [address] [place] [address], [place] [address] Nov, [facility] [place] [facility] [address] [id number] [address] [place] [address], [place] [address] Nov, [facility] [address] [id number] [address] [place] [address], [place] [address] Nov, [facility] [address] [id number] [address] [place] [address], [place] [address] Nov, [facility] [address] [id number] [address] [place] [address], [place] [address] Nov, [facility] [place] [facility] [address] [id number] [address] [place] [address], [place] [address] Nov, [facility] [place] [facility] [address] [id number] [address] [place] [address], [place] [address] Nov, [facility] [place] [facility] [address] [id number] [address] [place] [address], [place] [address] Oct, [facility] [place] [facility] [address] [id number] [address] [place] [address], [place] [address] Oct, [facility] [place] [facility] [address] [id number] [address] [place] [address], [place] [address] 28 Oct, 2013 [facility] [address] [id number] [address] [place] [address], [place] [address] Oct, [facility] [address] [id number] [address] [place] [address], [place] [address] 13 Oct, 2013 [facility] [address] [id number] [address] [place] [address], [place] [address] 06 Oct, 2013 [facility] [address] [id number] [address] [place] [address], [place] [address] 06 Oct, 2013 [facility] [address] [id number] [address] [place] [address], [place] [address] 07 Sep, 2013 [facility] [address] [id number] [address] [place] [address], [place] [address] 07 Sep, 2013 [facility] [address] [id number] [address] [place] [address], [place] [address] Sep, [facility] [address] [id number] [address] [place] [address], [place] [address] Sep, [facility] [address] [id number] [address] [place] [address], [place] [address] Aug, [facility] [address] [id number] [address] [place] [address], [place] [address] Aug, [facility] [address] [id number] [address] [place] [address], [place] [address] Aug, [facility] [address] [id number] [address] [place] [address], [place] [address] Aug, [facility] [address] [id number] [address] [place] [address], [place] [address] Jul, [facility] [address] [id number] [address] [place] [address], [place] [address] 16 Jul, 2013 [facility] [address] [id number] [address] [place] [address], [place] [address] Apr, [facility] [address] [id number] [address] [place] [address], [place] [address] Apr, [facility] [address] [id number] [address] [place] [address], [place] [address] Mar, [facility] [address] [id number] [address] [place] [address], [place] [address] Mar, [facility] [address] [id number] [address] [place] [address], [place] [address] Mar, [facility] [address] [id number] [address] [place] [address], [place] [address] Mar, [facility] [address] [id number] [address] [place] [address], [place] [address] Mar, [facility] [address] [id number] [address] [place] [address], [place] [address] Mar, [facility] [address] [id number] [address] [place] [address], [place] [address] Mar, [facility] [address] [id number] [address] [place] [address], [place] [address] Mar, [facility] [address] [id number] [address] [place] [address], [place] [address] Mar, [facility] [address] [id number] [address] [place] [address], [place] [address] Mar, [facility] [address] [id number] [address] [place] [address], [place] [address] Feb, [facility] [address] [id number] [address] [place] [address], [place] [address] Feb, [facility] [address] [id number] [address] [place] [address], [place] [address] Feb, [facility] [address] [id number] [address] [place] [address], [place] [address] Feb, [facility] [address] [id number] [address] [place] [address], [place] [address] Jan, [facility] [address] [id number] [address] [place] [address], [place] [address] 25 Nov, 2012 [facility] [address] [id number] [address] [place] [address], [place] [address] 16 Nov, 2012 [facility] [address] [id number] [address] [place] [address], [place] [address] 15 Nov, 2012 [facility] [address] [id number] [address] [place] [address], [place] [address] 11 Nov, 2012 [facility] [address] [id number] [address] [place] [address], [place] [address] Oct, [facility] [address] [id number] [address] [place] [address], [place] [address] 13 Sep, 2012 [facility] [address] [id number] [address] [place] [address], [place] [address] Sep, [facility] [address] [id number] [address] [place] [address], [place] [address] Aug, [facility] [address] [id number] [address] [place] [address], [place] [address] Jul, [facility] [address] [id number] [address] [place] [address], [place] [address] Jul, [facility] [address] [id number] [address] [place] [address], [place] [address] May, [facility] [address] [id number] [address] [place] [address], [place] [address] 30 May, 2012 [facility] [address] [id number] [address] [place] [address], [place] [address] May, [facility] [address] [id number] [address] [place] [address], [place] [address] 24 May, 2012 [facility] [address] [id number] [address] [place], [place] [address], [place] [address] Apr, [facility] [address] [id number] [address] [place] [address], [place] [address] Mar, [facility] [address] [id number] [address] [place] [address], [place] [address] Mar, [facility] [address] [id number] [address] [place] [address], [place] [address] Mar, [facility] [address] [id number] [address] [place] [address], [place] [address] Mar, [facility] [address] [id number] [address] [place] [address], [place] [address] Mar, [facility] [address] [id number] [address] [place] [address], [place] [address] Mar, [facility] [address] [id number] [address] [place] [address], [place] [address] Mar, [facility] [address] [id number] [address] [place] [address], [place] [address] Mar, [facility] [address] [id number] [address] [place] [address], [place] [address] Feb, [facility] [address] [id number] [address] [place] [address], [place] [address] Feb, [facility] [address] [id number] [address] [place] [address], [place] [address] Jan, [facility] [address] [id number] [address] [place] [address], [place] [address] December, [facility] [address] [id number] [address] [place] [address], [place] [address] December, [facility] [address] [id number] [address] [place] [address], [place] [address] Nov, [facility] [address] [id number] [address] [place] [address], [place] [address] Nov, [facility] [address] [id number] [address] [place] [address], [place] [address] 18 Nov, 2011 [facility] [address] [id number] [address] [place] [address], [place] [address] 10 Nov, 2011 [facility] [address] [id number] [address] [place] [address], [place] [address] 08 Oct, 2011 [facility] [address] [id number] [address] [place] [address], [place] [address] 29 Sep, 2011 [facility] [address] [id number] [address] [place] [address], [place] [address] 21 Sep, 2011 [facility] [address] [id number] [address] [place] [address], [place] [address] 17 Sep, 2011 [facility] [address] [id number] [address] [place] [address], [place] [address] 17 Sep, 2011 [facility] [address] [id number] [address] [place] [address], [place] [address] 16 Sep, 2011 [facility] [address] [id number] [address] [place] [address], [place] [address] 16 Sep, 2011 [facility] [address] [id number] [address] [place] [address], [place] [address] 15 Sep, 2011 [facility] [address] [id number] [address] [place] [address], [place] [address] 15 Sep, 2011 [facility] [address] [id number] [address] [place] [address], [place] [address] Aug, [facility] [address] [id number] [address] [place] [address], [place] [address] Jul, [facility] [address] [id number] [address] [place] [address], [place] [address] Jul, [facility] [address] [id number] [address] [place] [address], [place] [address] Jul, [facility] [address] [id number] [address] [place] [address], [place] [address] Jun, [facility] [address] [id number] [address] [place] [address] Jul, [facility] [address] [id number] [address] [place] [id number] Jul, [facility] [address] [id number] [address] [place] [phone] Jul, [facility] [address] [id number] [address] [place] [id number] Jul, [facility] [address] [id number] [address] [place] [id number] Jul, [facility] [address] [id number] [address] [place] [id number] May, [facility] [address] [id number] [address] [place] [phone] May, [facility] [address] [id number] [address] [place] [phone] May, [facility] [address] [id number] [address] [place] [phone] Apr, [facility] [address] [id number] [address] [place] [phone] Jun, [facility] [address] [id number] [address] [place] [phone] Jun, [facility] [address] [id number] [address] [place] [phone] May, [facility] [address] [id number] [address] [place] [phone] Jan, IMMUNIZATIONS No Known Immunizations SOCIAL HISTORY Never Assessed REASON FOR VISIT Sore throat-BITA sherman, pt is complaining of a sore throat and she is coughing up green phlegm for about two days now, A1C and MICRO done in visit- carol troncoso PLAN OF CARE Activity Details Follow Up 3 Months Reason: VITAL SIGNS Height 63 in 2018-10-13 Weight 191.2 lbs 2018-10-13 Temperature 98.0 degrees Fahrenheit 2018-10-13 Heart Rate 96 bpm 2018-10-13 Respiratory Rate 20 2018-10-13 Oximetry 98 % 2018-10-13 BMI 33.87 kg/m2 2018-10-13 Blood pressure systolic 130 mmHg 2018-10-13 Blood pressure diastolic 78 mmHg 2018-10-13 MEDICATIONS Medication Instructions Dosage Frequency Start Date End Date Duration S tatus SudoGest 60 mg Orally every 6 hrs 1 tablet as needed 6h 13 Jun, 8 5 days Not-Taking Atenolol 50 mg Orally Once a day 1 tablet 24h 90 Active Blood Glucose Monitor System w/Device Contour Next 3 times a day test 3 times per day 8h Sep, Active Blood Glucose Test Strip Contour Next 3 times a day test 3 times pe r day 8h Sep, Active GlipiZIDE ER 10 mg Orally 2 times a day 1 tablet 12h 90 days Active Acyclovir 400 mg orally 3 times a day one tab 8h Oct, 10 days Not-Taking Januvia 100 mg Orally Once a day 1 tablet 24h 90 day s Active Trulicity 1.5 MG/0.5ML Subcutaneous once weekly Inject 0.5ml 90 days Active Lovastatin 40 MG Orally Once a day 1 tablet with the evening meal 2 4h Oct, Active RESULTS Name Result Date Reference Range A1C (IN HOUSE) 2018-10-13 A1C IN HOUSE 7.9 4.3 - 5.6 % Previous A1c 7.4 Lot [id number] Exp date 05/2020 MICROALBUMIN, URINE (IN HOUSE) 2018-10-13 MICROALBUMIN Lot # [id number] Exp date 01/2019 Clarity cloudy Color yellow ALB 80 CRE 300 A:C (IN HOUSE) <30 Control Control Lot # Exp date PROCEDURES Procedure Date Ordered Result Body Site GLYCATED HEMOGLOBIN TEST October 13, 2018 MICROALBUMIN, SEMIQUANT October 13, 2018 INSTRUCTIONS MEDICATIONS ADMINISTERED No Known Medications MEDICAL [...]
--- OUTSIDE RECORDS SUMMARY | 2019-11-01 20:29 | XMS REPORT ---
Author Author AnnNyasia Doctor Organization [facility] Address Unknown Phone Unavailable Care Team Providers Care Asbestos Surveyor Name Role Phone Migration, Doctor Unavailable Unavailable PROBLEMS Type Condition ICD9-CM Code UAS91-OY Code Onset Dates Condition S tatus SNOMED Code Problem Costochondritis 733.6 Active 6410 9004 Problem Grief reaction F43.21 Active 14862 5009 Problem Hyperlipidemia E78.5 Active 66064 004 Problem Unspecified cardiac dysrhythmia 427.9 Active 234372015 Problem Diabetes 250.00 Active 67682675 Problem Type 2 diabetes mellitus without complications E11 .9 Active 46416400 Problem Essential hypertension I10 Active [id number] ALLERGIES No Information ENCOUNTERS Encounter Location Date Diagnosis [place] [address] [place] [id number] [place] [address] Nov, [place] [address] [place] [id number] [place] [address] Nov, [place] [address] [place] [id number] [place] [address] Oct, URI (upper respiratory infec tion) J06.9 ; Type 2 diabetes mellitus without complications E11.9 and Hyperlipidemia E78.5 [place] [address] [place] [address] Aug, [place] [address] [place] [id number] [place] [address] Jun, Acute nasopharyngitis J00 [place] [address] [place] [id number] [place] [address] May, Encounter for immunization Z 23 [place] [address] [place] [id number] [place] [address] Apr, [place] [address] [place] [id number] [place] [address] Apr, Type 2 diabetes mellitus wit hout complications E11.9 [facility] [address] [id number] [address] [place] [address] Apr, Type 2 diabetes mellitus wit hout complications E11.9 ; Grief reaction F43.21 and Essential hypertension I10 [facility] [address] [id number] [address] [place] [address] Mar, Type 2 diabetes mellitus wit hout complications E11.9 [facility] [address] [id number] [address] [place] [address] Mar, Type 2 diabetes mellitus wit hout complications E11.9 [facility] [address] [id number] [address] [place] [address] Feb, [facility] [address] [id number] [address] [place] [address] Jan, [facility] [address] [id number] [address] [place] [address] Nov, Type 2 diabetes mellitus wit hout complications E11.9 [facility] [address] [id number] [address] [place] [address] Oct, [facility] [address] [id number] [address] [place] [address] Oct, Labia irritation N90.89 [facility] [address] [id number] [address] [place] [address] Sep, [facility] [address] [id number] [address] [place] [address] Sep, [facility] [address] [id number] [address] [place] [address] Sep, [facility] [address] [id number] [address] [place] [address] Aug, [facility] [address] [id number] [address] [place] [address] Jul, [facility] [address] [place] [address] Jul, [facility] [address] [address] Mar, Type 2 diabetes mellitus wit hout complications E11.9 ; Acute pain of right knee M25.561 and Essential hypertension I10 [place] [address] [address] Mar, [facility] [address] [address] Mar, Dysuria R30.0 [place] [address] [address] December, [place] [address] [address] Nov, [place] [address] [address] Nov, Dental examination Z01.20 [place] [address] [address] Nov, Dental examination Z01.20 [place] [address] [address] Nov, Non-intractable vomiting wit h nausea, unspecified vomiting type R11.2 ; Arthralgia, unspecified joint M25.50 ; Fever, unspecified fever cause R50.9 ; Type 2 diabetes mellitus without complications E11.9 and Tooth pain K08.89 [place] [address] [place] [address] Nov, Type 2 diabetes mellitus wit hout complications E11.9 [place] [address] [place] [id number] [place] [address] Nov, Type 2 diabetes mellitus wit hout complications E11.9 and Bronchitis J40 [place] [address] [place] [id number] [place] [address] Oct, Type 2 diabetes mellitus wit hout complications E11.9 [facility] [address] [id number] [address] [place] [address] Jul, [facility] [address] [id number] [address] [place] [address] Jul, Dysuria R30.0 ; Hematuria R3 1.9 and Vaginal pain R10.2 [facility] [address] [id number] [address] [place] [address] Jul, Dysuria R30.0 ; Vaginal disc harge N89.8 and Low back strain, initial encounter S39.012A [facility] [address] [id number] [address] [place] [address] Jun, Bacterial conjunctivitis of right eye H10.9 ; Sore throat J02.9 and Acute non-recurrent maxillary sinusitis J01.00 [facility] [address] [id number] [address] [place] [address] Jun, [facility] [address] [id number] [address] [place] [address] May, [facility] [address] [id number] [address] [place] [address] Apr, [facility] [address] [id number] [address] [place] [address] 14 Apr, 2016 [facility] [address] [id number] [address] [place] [address] Apr, [facility] [address] [id number] [address] [place] [address] Apr, Type 2 diabetes mellitus wit hout complications E11.9 [facility] [address] [id number] [address] [place] [address] Mar, [facility] [address] [id number] [address] [place] [address] Feb, Bronchitis J40 [facility] [address] [facility] [id number] [address] [place] [address] Feb, Bronchitis J40 [facility] [address] [facility] [id number] [address] [place] [address] Feb, Type 2 diabetes mellitus wit hout complications E11.9 [facility] [address] [place] [id number] [address] [place] [address] Feb, [facility] [address] [place] [id number] [address] [place] [address] Feb, [facility] [address] [facility] [id number] [address] [place] [address] Feb, Type 2 diabetes mellitus wit hout complications E11.9 and Dysuria R30.0 [facility] [address] [place] [id number] [place] [address] Jan, Type 2 diabetes mellitus wit hout complications E11.9 [facility] [address] [place] [id number] [place] [address] Jan, Type 2 diabetes mellitus wit hout complications E11.9 [facility] [address] [place] [id number] [place] [address] December, Type 2 diabetes mellitus wit hout complications E11.9 [facility] [address] [place] [id number] [place] [address] Nov, Type 2 diabetes mellitus wit hout complications E11.9 [facility] [address] [place] [id number] [place] [address] Oct, Type 2 diabetes mellitus wit hout complications E11.9 ; Fever R50.9 ; Myalgia M79.1 and Cough R05 [facility] [address] [facility] [id number] [address] [place] [address] 15 Sep, 2015 Dysuria R30.0 and Cystitis N 30.90 [facility] [address] [place] [id number] [place] [address] Sep, [facility] [address] [facility] [id number] [address] [place] [address] Sep, [facility] [address] [id number] [address] [place] [id number] Aug, Dental examination Z01.20 [facility] [address] [facility] [id number] [address] [place] [address] Aug, Type 2 diabetes mellitus wit hout complications E11.9 [facility] [address] [facility] [id number] [address] [place] [address] Jul, Dysfunction of left eustachi an tube H69.82 [facility] [address] [facility] [id number] [address] [place] [address] Jun, [facility] [address] [facility] [id number] [address] [place] [address] Jun, Cellulitis L03.90 [facility] [address] [facility] [id number] [address] [place] [address] Jun, [facility] [address] [facility] [id number] [address] [place] [address] Jun, [facility] [address] [place] [id number] [address] [place] [address] Jun, [facility] [address] [facility] [id number] [address] [place] [address] May, Dermatofibroma of ankle, rig ht D23.71 [facility] [address] [facility] [id number] [address] [place] [address] May, [facility] [address] [facility] [id number] [address] [place] [address] Apr, Diabetes 250.00 and 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 [facility] [address] [facility] [id number] [address] [place] [address] Apr, [facility] [address] [facility] [id number] [address] [place] [address] Apr, [facility] [address] [facility] [id number] [address] [place] [address] Apr, Diabetes 250.00 ; Influenza vaccine administered V04.81 and Allergic rhinitis 477.9 [facility] [address] [facility] [id number] [address] [place] [address] Mar, [facility] [address] [place] [id number] [address] [place] [address] Jan, [facility] [address] [facility] [id number] [address] [place] [address] Jan, DM w/o complication type II 250.00 [facility] [address] [place] [id number] [place] [address] December, DM w/o complication type II 250.00 ; Calcaneal spur 726.73 ; Vaginitis due to Amanda 112.1 and Onychomycosis 110.1 [facility] [address] [facility] [id number] [address] [place] [address] 30 Nov, 2014 Amanda infection of genital region 112.2 [facility] [address] [place] [id number] [place] [address] 14 Nov, 2014 [facility] [address] [place] [id number] [place] [address] 13 Nov, 2014 [facility] [address] [facility] [id number] [address] [place] [address] Oct, [facility] [address] [facility] [id number] [address] [place] [address] Oct, [facility] [address] [place] [id number] [place] [address] Sep, [facility] [address] [facility] [id number] [address] [place] [address] Sep, [facility] [address] [place] [id number] [address] [place] [address] Jul, [facility] [address] [id number] [address] [place] [address], [place] [address] Jul, [facility] [address] [id number] [address] [place] [address], [place] [address] Jun, [facility] [address] [id number] [address] [place] [address], [place] [address] Jun, [facility] [address] [id number] [address] [place] [address], [place] [address] Jun, [facility] [address] [id number] [address] [place] [address], [place] [address] Jun, [facility] [address] [id number] [address] [place] [address], [place] [address] May, [facility] [address] [id number] [address] [place] [address], [place] [address] May, [facility] [address] [id number] [address] [place] [address], [place] [address] May, [facility] [address] [id number] [address] [place] [address], [place] [address] May, [facility] [address] [id number] [address] [place] [address], [place] [address] Apr, [facility] [address] [id number] [address] [place] [address], [place] [address] Apr, [facility] [address] [id number] [address] [place] [address], [place] [address] Apr, [facility] [address] [id number] [address] [place] [address], [place] [address] Apr, [facility] [address] [id number] [address] [place] [address], [place] [address] Mar, [facility] [address] [id number] [address] [place] [address], [place] [address] Mar, [facility] [address] [id number] [facility] [place] [address] Mar, [facility] [address] [id number] [address] [place] [address], [place] [address] Mar, [facility] [address] [id number] [address] [place] [address], [place] [address] Mar, [facility] [address] [id number] [address] [place] [address], [place] [address] Mar, [facility] [address] [id number] [address] [place] [address], [place] [address] Mar, [facility] [address] [id number] [address] [place] [address], [place] [address] Mar, [facility] [address] [id number] [address] [place] [address], [place] [address] Mar, [facility] [address] [id number] [address] [place] [address], [place] [address] Mar, [facility] [address] [id number] [address] [place] [address], [place] [address] Mar, [facility] [address] [id number] [address] [place] [address], [place] [address] Mar, [facility] [address] [id number] [address] [place] [address], [place] [address] Feb, [facility] [address] [id number] [address] [place] [address], [place] [address] Feb, [facility] [address] [id number] [address] [place] [address], [place] [address] Jan, [facility] [address] [id number] [address] [place] [address], [place] [address] Jan, [facility] [address] [id number] [address] [place] [address], [place] [address] Jan, [facility] [address] [id number] [address] [place] [address], [place] [address] Jan, [facility] [address] [id number] [facility] [place] [address] December, [facility] [address] [id number] [facility] [place] [address] December, [facility] [address] [id number] [address] [place] [address], [place] [address] December, [facility] [address] [id number] [address] [place] [address], [place] [address] December, [facility] [address] [id number] [address] [place] [address], [place] [address] Nov, [facility] [address] [id number] [address] [place] [address], [place] [address] Nov, [facility] [address] [id number] [address] [place] [address], [place] [address] Nov, [facility] [address] [id number] [address] [place] [address], [place] [address] Nov, [facility] [address] [id number] [address] [place] [address], [place] [address] Nov, [facility] [address] [id number] [address] [place] [address], [place] [address] Nov, [facility] [address] [id number] [address] [place] [address], [place] [address] Nov, [facility] [address] [id number] [address] [place] [address], [place] [address] Oct, [facility] [address] [id number] [address] [place] [address], [place] [address] 31 Oct, 2013 [facility] [address] [id number] [address] [place] [address], [place] [address] 28 Oct, 2013 [facility] [address] [id number] [address] [place] [address], [place] [address] 13 Oct, 2013 [facility] [address] [id number] [address] [place] [address], [place] [address] Oct, [facility] [address] [id number] [address] [place] [address], [place] [address] Oct, [facility] [address] [id number] [address] [place] [address], [place] [address] Oct, [facility] [address] [id number] [address] [place] [address], [place] [address] Sep, [facility] [address] [id number] [address] [place] [address], [place] [address] Sep, [facility] [address] [id number] [address] [place] [address], [place] [address] Sep, [facility] [address] [id number] [address] [place] [address], [place] [address] Sep, [facility] [address] [id number] [address] [place] [address], [place] [address] Aug, [facility] [address] [id number] [address] [place] [address], [place] [address] Aug, [facility] [address] [id number] [address] [place] [address], [place] [address] Aug, [facility] [address] [id number] [address] [place] [address], [place] [address] Aug, [facility] [address] [id number] [address] [place] [address], [place] [address] Jul, [facility] [address] [id number] [address] [place] [address], [place] [address] Jul, [facility] [address] [id number] [address] [place] [address], [place] [address] Apr, [facility] [address] [id number] [address] [place] [address], [place] [address] Apr, [facility] [address] [id number] [address] [place] [address], [place] [address] Mar, [facility] [address] [id number] [facility] [place] [address] Mar, [facility] [address] [id number] [address] [place] [address], [place] [address] Mar, [facility] [address] [id number] [address] [place] [address], [place] [address] Mar, [facility] [address] [id number] [address] [place] [address], [place] [address] Mar, [facility] [address] [id number] [address] [place] [address], [place] [address] Mar, [facility] [address] [id number] [address] [place] [address], [place] [address] Mar, [facility] [address] [id number] [address] [place] [address], [place] [address] Mar, [facility] [address] [id number] [address] [place] [address], [place] [address] Mar, [facility] [address] [id number] [address] [place] [address], [place] [address] Mar, [facility] [address] [id number] [address] [place] [address], [place] [address] Feb, [facility] [address] [id number] [address] [place] [address], [place] [address] Feb, [facility] [address] [id number] [address] [place] [address], [place] [address] Feb, [facility] [address] [id number] [address] [place] [address], [place] [address] Feb, [facility] [address] [id number] [address] [place] [address], [place] [address] Jan, [facility] [address] [id number] [address] [place] [address], [place] [address] Nov, [facility] [address] [id number] [address] [place] [address], [place] [address] 16 Nov, 2012 [facility] [address] [id number] [address] [place] [address], [place] [address] Nov, [facility] [address] [id number] [address] [place] [address], [place] [address] Nov, [facility] [address] [id number] [address] [place] [address], [place] [address] Oct, [facility] [address] [id number] [address] [place] [address], [place] [address] Sep, [facility] [address] [id number] [address] [place] [address], [place] [address] Sep, [facility] [address] [id number] [address] [place] [address], [place] [address] Aug, [facility] [address] [id number] [address] [place] [address], [place] [address] Jul, [facility] [address] [id number] [address] [place] [address], [place] [address] Jul, [facility] [address] [id number] [address] [place] [address], [place] [address] May, [facility] [address] [id number] [address] [place] [address], [place] [address] May, [facility] [address] [id number] [address] [place] [address], [place] [address] May, [facility] [address] [id number] [address] [place] [address], [place] [address] May, [facility] [address] [id number] [address] [place] [address], [place] [address] Apr, [facility] [address] [id number] [address] [place] [address], [place] [address] Mar, [facility] [address] [id number] [address] [place] [address], [place] [address] Mar, [facility] [address] [id number] [address] [place] [address], [place] [address] 16 Mar, 2012 [facility] [address] [id number] [address] [place] [address], [place] [address] Mar, [facility] [address] [id number] [address] [place] [address], [place] [address] Mar, [facility] [address] [id number] [address] [place] [address], [place] [address] Mar, [facility] [address] [id number] [address] [place] [address], [place] [address] Mar, [facility] [address] [id number] [address] [place] [address], [place] [address] Mar, [facility] [address] [id number] [address] [place] [address], [place] [address] Feb, [facility] [address] [id number] [address] [place] [address], [place] [address] Feb, [facility] [address] [id number] [address] [place] [address], [place] [address] Jan, [facility] [address] [id number] [address] [place] [address], [place] [address] December, [facility] [address] [id number] [address] [place], [place] [address], [place] [address] December, [facility] [address] [id number] [address] [place] [address], [place] [address] Nov, [facility] [address] [id number] [address] [place] [address], [place] [address] Nov, [facility] [address] [id number] [address] [place] [address], [place] [address] 18 Nov, 2011 [facility] [address] [id number] [address] [place] [address], [place] [address] Nov, [facility] [address] [id number] [address] [place] [address], [place] [address] Oct, [facility] [address] [id number] [address] [place] [address], [place] [address] 29 Sep, 2011 [facility] [address] [id number] [address] [place] [address], [place] [address] 21 Sep, 2011 [facility] [address] [id number] [address] [place] [address], [place] [address] 17 Sep, 2011 [facility] [address] [id number] [address] [place] [address], [place] [address] 17 Sep, 2011 [facility] [address] [id number] [address] [place] [address], [place] [address] 16 Sep, 2011 [facility] [address] [id number] [address] [place] [address], [place] [address] 16 Sep, 2011 [facility] [address] [id number] [address] [place] [address], [place] [address] 15 Sep, 2011 [facility] [address] [id number] [address] [place] [address], [place] [address] 15 Sep, 2011 [facility] [address] [id number] [address] [place] [address], [place] [address] Aug, [facility] [address] [id number] [address] [place] [address], [place] [address] Jul, [facility] [address] [id number] [address] [place] [address], [place] [address] Jul, [facility] [address] [id number] [address] [place] [address], [place] [address] Jul, [facility] [address] [id number] [address] [place] [address], [place] [address] Jun, [facility] [address] [id number] [address] [place] [address], [place] [address] Jul, [facility] [address] [id number] [address] [place] [address], [place] [address] Jul, [facility] [address] [id number] [address] [place] [phone] 16 Jul, 2010 [facility] [address] [id number] [address] [place] [phone] Jul, [facility] [address] [id number] [address] [place] [address] Jul, [facility] [address] [id number] [address] [place] [phone] May, [facility] [address] [id number] [address] [place] [phone] May, [facility] [address] [id number] [address] [place] [phone] May, [facility] [address] [id number] [address] [place] [phone] Apr, [facility] [address] [id number] [address] [place] [phone] Jun, [facility] [address] [id number] [address] [place] [address] Jun, [facility] [address] [id number] [address] [place] [phone] May, [facility] [address] [id number] [address] [place] [phone] Jan, IMMUNIZATIONS No Known Immunizations SOCIAL HISTORY Never Assessed REASON FOR VISIT EMR-[facility] PLAN OF CARE VITAL SIGNS MEDICATIONS Unknown [...]
--- OUTSIDE RECORDS SUMMARY | 2019-11-01 20:30 | XMS REPORT ---
Author Author Nyasia RUIZ Organization [facility] Address [address] [place] [address] Care Team Providers Care Land Clearer Name Role Phone IRVIN RUIZ Unavailable PROBLEMS Type Condition ICD9-CM Code JHA60-AB Code Onset Dates Condition S tatus SNOMED Code Problem Grief reaction F43.21 Active 60240 5009 Problem Essential hypertension I10 Active 03267118 Problem Unspecified cardiac dysrhythmia 427.9 Active 880650531 Problem Costochondritis 733.6 Active 6410 9004 Problem Type 2 diabetes mellitus without complications E11 .9 Active 98154675 Problem Diabetes 250.00 Active [id number] ALLERGIES No Information ENCOUNTERS Encounter Location Date Diagnosis [facility] [address] [id number] [address] [place] [phone] May, Encounter for immunization Z 23 [facility] [address] [id number] [address] [place] [address] Apr, [facility] [id number] [place] [address] Apr, Type 2 diabetes mellitus wit hout complications E11.9 [facility] [address] [id number] [address] [place] [address] Apr, Type 2 diabetes mellitus wit hout complications E11.9 ; Grief reaction F43.21 and Essential hypertension I10 [facility] [address] [facility] [id number] [address] [place] [address] Mar, Type 2 diabetes mellitus wit hout complications E11.9 [facility] [address] [facility] [id number] [address] [place] [id number] 16 Mar, 2018 Type 2 diabetes mellitus wit hout complications E11.9 [facility] [address] [id number] [address] [place] [phone] Feb, [facility] [address] [id number] [address] [place] [address] Jan, [facility] [address] [facility] [id number] [address] [place] [address] Nov, Type 2 diabetes mellitus wit hout complications E11.9 [facility] [address] [facility] [id number] [address] [place] [address] Oct, [facility] [address] [facility] [id number] [address] [place] [address] Oct, Labia irritation N90.89 [facility] [address] [facility] [id number] [address] [place] [address] Sep, [facility] [address] [facility] [id number] [address] [place] [address] Sep, [facility] [address] [facility] [id number] [address] [place] [phone] Sep, [facility] [address] [facility] [id number] [address] [place] [address] Aug, [facility] [address] [facility] [id number] [address] [place] [address] Jul, [facility] [address] [facility] [id number] [address] [place] [address] Jul, [facility] [address] [facility] [id number] [address] [place] [address] Mar, Type 2 diabetes mellitus wit hout complications E11.9 ; Acute pain of right knee M25.561 and Essential hypertension I10 [facility] [address] [facility] [id number] [address] [place] [address] Mar, [facility] [address] [facility] [id number] [address] [place] [address] Mar, Dysuria R30.0 [facility] [address] [facility] [id number] [address] [place] [address] December, [facility] [address] [facility] [id number] [address] [place] [address] Nov, [facility] [address] [facility] [id number] [address] [place] [address] Nov, Dental examination Z01.20 [facility] [address] [facility] [id number] [address] [place] [address] Nov, Dental examination Z01.20 [place] [address] [facility] [id number] [address] [place] [address] Nov, Non-intractable vomiting wit h nausea, unspecified vomiting type R11.2 ; Arthralgia, unspecified joint M25.50 ; Fever, unspecified fever cause R50.9 ; Type 2 diabetes mellitus without complications E11.9 and Tooth pain K08.89 [place] [address] [id number] [address] [place] [address] Nov, Type 2 diabetes mellitus wit hout complications E11.9 [place] [address] [facility] [id number] [address] [place] [address] Nov, Type 2 diabetes mellitus wit hout complications E11.9 and Bronchitis J40 [place] [address] [place] [id number] [address] [place] [address] Oct, Type 2 diabetes mellitus wit hout complications E11.9 [place] [address] [id number] [address] [place] [address] Jul, [place] [address] [id number] [address] [place] [address] Jul, Dysuria R30.0 ; Hematuria R3 1.9 and Vaginal pain R10.2 [place] [address] [id number] [address] [place] [address] Jul, Dysuria R30.0 ; Vaginal disc harge N89.8 and Low back strain, initial encounter S39.012A [place] [address] [id number] [address] [place] [address] Jun, Bacterial conjunctivitis of right eye H10.9 ; Sore throat J02.9 and Acute non-recurrent maxillary sinusitis J01.00 [facility] [address] [id number] [address] [place] [address] Jun, [facility] [address] [id number] [address] [place] [address] May, [facility] [address] [id number] [address] [place] [address] Apr, [facility] [address] [id number] [address] [place] [address] Apr, [facility] [address] [id number] [address] [place] [address] Apr, [facility] [address] [id number] [address] [place] [address] Apr, Type 2 diabetes mellitus wit hout complications E11.9 [facility] [address] [id number] [address] [place] [address] Mar, [facility] [address] [id number] [address] [place] [phone] Feb, Bronchitis J40 [facility] [address] [id number] [address] [place] [address] Feb, Bronchitis J40 [facility] [address] [id number] [address] [place] [address] Feb, Type 2 diabetes mellitus wit hout complications E11.9 [facility] [address] [id number] [address] [place] [address] Feb, [facility] [address] [id number] [address] [place] [address] Feb, [facility] [address] [id number] [address] [place] [phone] Feb, Type 2 diabetes mellitus wit hout complications E11.9 and Dysuria R30.0 [facility] [address] [facility] [id number] [address] [place] [address] Jan, Type 2 diabetes mellitus wit hout complications E11.9 [facility] [address] [facility] [id number] [address] [place] [id number] 14 Jan, 2016 Type 2 diabetes mellitus wit hout complications E11.9 [facility] [id number] [address] [place] [address] December, Type 2 diabetes mellitus wit hout complications E11.9 [place] [address] [facility] [id number] [address] [place] [address] Nov, Type 2 diabetes mellitus wit hout complications E11.9 [place] [id number] [place] [address] Oct, Type 2 diabetes mellitus wit hout complications E11.9 ; Fever R50.9 ; Myalgia M79.1 and Cough R05 [place] [id number] [place] [phone] 15 Sep, 2015 Dysuria R30.0 and Cystitis N 30.90 [place] [address] [id number] [address] [place] [phone] 05 Sep, 2015 [facility] [id number] [address] [place] [id number] 04 Sep, 2015 [facility] [address] [id number] [address] [place] [address] [id number] Aug, Dental examination Z01.20 [facility] [address] [id number] [address] [place] [phone] Aug, Type 2 diabetes mellitus wit hout complications E11.9 [facility] [id number] [address] [place] [address] Jul, Dysfunction of left eustachi an tube H69.82 [place] [address] [id number] [place] [address] Jun, [facility] [address] [facility] [id number] [address] [place] [address] Jun, Cellulitis L03.90 [facility] [address] [facility] [id number] [address] [place] [phone] Jun, [facility] [id number] [place] [address] Jun, [facility] [address] [id number] [address] [place] [address] Jun, [facility] [address] [address] May, Dermatofibroma of ankle, rig ht D23.71 [facility] [id number] [place] [address] May, [facility] [address] [address] Apr, Diabetes 250.00 and 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 [facility] [address] [address] Apr, [facility] [address] [id number] [address] [place] [id number] Apr, [facility] [address] [address] Apr, Diabetes 250.00 ; Influenza vaccine administered V04.81 and Allergic rhinitis 477.9 [facility] [address] [id number] [address] [place] [id number] Mar, [facility] [address] [address] Jan, [facility] [address] [id number] [address] [place] [address] Jan, DM w/o complication type II 250.00 [facility] [address] [id number] [address] [place] [id number] December, DM w/o complication type II 250.00 ; Calcaneal spur 726.73 ; Vaginitis due to Amanda 112.1 and Onychomycosis 110.1 [facility] [address] [id number] [address] [place] [id number] 30 Nov, 2014 Amanda infection of genital region 112.2 [facility] [address] [id number] [address] [place] [phone] 14 Nov, 2014 [facility] [address] [id number] [address] [place] [phone] Nov, [facility] [address] [id number] [address] [place] [phone] Oct, [facility] [address] [id number] [address] [place] [id number] Oct, [facility] [address] [id number] [address] [place] [phone] Sep, [facility] [address] [id number] [address] [place] [phone] Sep, [facility] [address] [id number] [address] [place] [id number] Jul, [facility] [address] [id number] [address] [place] [address] Jul, [facility] [address] [id number] [address] [place] [phone] Jun, [facility] [address] [id number] [address] [place] [address] Jun, [facility] [address] [id number] [address] [place] [phone] Jun, [facility] [address] [id number] [address] [place] [phone] Jun, [facility] [address] [id number] [address] [place] [address], [place] [address] May, [facility] [address] [id number] [address] [place] [address], [place] [address] May, [facility] [address] [id number] [address] [place] [address], [place] [address] May, [facility] [address] [id number] [address] [place] [address], [place] [address] May, [facility] [address] [id number] [address] [place] [address], [place] [address] Apr, [facility] [address] [id number] [address] [place] [address], [place] [address] Apr, [facility] [address] [id number] [address] [place] [address], [place] [address] Apr, [facility] [address] [id number] [address] [place] [address], [place] [address] Apr, [facility] [address] [id number] [address] [place] [address], [place] [address] Mar, [facility] [address] [id number] [address] [place] [address], [place] [address] Mar, [facility] [address] [id number] [address] [place] [address], [place] [address] Mar, [facility] [address] [id number] [address] [place] [address], [place] [address] Mar, [facility] [address] [id number] [address] [place] [address], [place] [address] Mar, [facility] [address] [id number] [address] [place] [address], [place] [address] Mar, [facility] [address] [id number] [address] [place] [address], [place] [address] Mar, [facility] [address] [id number] [address] [place] [address], [place] [address] Mar, [facility] [address] [id number] [address] [place] [address], [place] [address] Mar, [facility] [address] [id number] [address] [place] [address], [place] [address] Mar, [facility] [address] [id number] [address] [place] [address], [place] [address] Mar, [facility] [address] [id number] [address] [place] [address], [place] [address] Mar, [facility] [address] [id number] [address] [place] [address], [place] [address] Feb, [facility] [address] [id number] [address] [place] [address], [place] [address] Feb, [facility] [address] [id number] [address] [place] [address], [place] [address] Jan, [facility] [address] [id number] [address] [place] [address], [place] [address] Jan, [facility] [address] [id number] [address] [place] [address], [place] [address] Jan, [facility] [address] [id number] [address] [place] [address], [place] [address] Jan, [facility] [address] [id number] [address] [place] [address], [place] [address] December, [facility] [address] [id number] [address] [place] [address], [place] [address] December, [facility] [address] [id number] [address] [place] [address], [place] [address] December, [facility] [address] [id number] [address] [place] [address], [place] [address] December, [facility] [address] [id number] [address] [place] [address], [place] [address] Nov, [facility] [address] [id number] [address] [place] [address], [place] [address] 14 Nov, 2013 [facility] [address] [id number] [address] [place] [address], [place] [address] Nov, [facility] [address] [id number] [address] [place] [address], [place] [address] Nov, [facility] [address] [id number] [address] [place] [address], [place] [address] Nov, [facility] [address] [id number] [address] [place] [address], [place] [address] Nov, [facility] [address] [id number] [address] [place] [address], [place] [address] Nov, [facility] [address] [id number] [address] [place] [address], [place] [address] Oct, [facility] [address] [id number] [address] [place] [address], [place] [address] Oct, [facility] [address] [id number] [address] [place] [address], [place] [address] Oct, [facility] [address] [id number] [address] [place] [address], [place] [address] Oct, [facility] [address] [id number] [address] [place] [address], [place] [address] Oct, [facility] [address] [id number] [address] [place] [address], [place] [address] Oct, [facility] [address] [id number] [address] [place] [address], [place] [address] Oct, [facility] [address] [id number] [address] [place] [address], [place] [address] Sep, [facility] [address] [id number] [address] [place] [address], [place] [address] Sep, [facility] [address] [id number] [address] [place] [address], [place] [address] Sep, [facility] [address] [id number] [address] [place] [address], [place] [address] Sep, [facility] [address] [id number] [address] [place] [address], [place] [address] Aug, [facility] [address] [id number] [address] [place] [address], [place] [address] Aug, [facility] [address] [id number] [address] [place] [address], [place] [address] Aug, [facility] [address] [id number] [address] [place] [address], [place] [address] Aug, [facility] [address] [id number] [address] [place] [address], [place] [address] Jul, [facility] [address] [id number] [address] [place] [address], [place] [address] Jul, [facility] [address] [id number] [address] [place] [address], [place] [address] Apr, [facility] [address] [id number] [address] [place] [address], [place] [address] Apr, [facility] [address] [id number] [address] [place] [address], [place] [address] Mar, [facility] [address] [id number] [address] [place] [address], [place] [address] Mar, [facility] [address] [id number] [address] [place] [address], [place] [address] Mar, [facility] [address] [id number] [address] [place] [address], [place] [address] Mar, [facility] [address] [id number] [address] [place] [address], [place] [address] Mar, [facility] [address] [id number] [address] [place] [address], [place] [address] Mar, [facility] [address] [id number] [address] [place] [address], [place] [address] Mar, [facility] [address] [id number] [address] [place] [address], [place] [address] Mar, [facility] [address] [id number] [address] [place] [address], [place] [address] Mar, [facility] [address] [id number] [address] [place] [address], [place] [address] Mar, [facility] [address] [id number] [address] [place] [address], [place] [address] Feb, [facility] [address] [id number] [address] [place] [address], [place] [address] Feb, [facility] [address] [id number] [address] [place] [address], [place] [address] Feb, [facility] [address] [id number] [address] [place] [address], [place] [address] Feb, [facility] [address] [id number] [address] [place] [address], [place] [address] Jan, [facility] [address] [id number] [address] [place] [address], [place] [address] 25 Nov, 2012 [facility] [address] [id number] [address] [place] [address], [place] [address] 16 Nov, 2012 [facility] [address] [id number] [address] [place] [address], [place] [address] 15 Nov, 2012 [facility] [address] [id number] [address] [place] [address], [place] [address] Nov, [facility] [address] [id number] [address] [place] [address], [place] [address] Oct, [facility] [address] [id number] [address] [place] [address], [place] [address] Sep, [facility] [address] [id number] [address] [place] [address], [place] [address] Sep, [facility] [address] [id number] [address] [place] [address], [place] [address] Aug, [facility] [address] [id number] [address] [place] [address], [place] [address] Jul, [facility] [address] [id number] [address] [place] [address], [place] [address] Jul, [facility] [address] [id number] [address] [place] [address], [place] [address] May, [facility] [address] [id number] [address] [place] [address], [place] [address] May, [facility] [address] [id number] [address] [place] [address], [place] [address] May, [facility] [address] [id number] [address] [place] [address], [place] [address] May, [facility] [address] [id number] [address] [place] [address], [place] [address] Apr, [facility] [address] [id number] [address] [place] [address], [place] [address] Mar, [facility] [address] [id number] [address] [place] [address], [place] [address] Mar, [facility] [address] [id number] [address] [place] [address], [place] [address] Mar, [facility] [address] [id number] [address] [place] [address], [place] [address] Mar, [facility] [address] [id number] [address] [place] [address], [place] [address] Mar, [facility] [address] [id number] [address] [place] [address], [place] [address] Mar, [facility] [address] [id number] [address] [place] [address], [place] [address] Mar, [facility] [address] [id number] [address] [place] [address], [place] [address] Mar, [facility] [address] [id number] [address] [place] [address], [place] [address] Feb, [facility] [address] [id number] [address] [place] [address], [place] [address] Feb, [facility] [address] [id number] [address] [place] [address], [place] [address] Jan, [facility] [address] [id number] [address] [place] [address], [place] [address] December, [facility] [address] [id number] [address] [place] [address], [place] [address] December, [facility] [address] [id number] [address] [place] [address], [place] [address] Nov, [facility] [address] [id number] [address] [place] [address], [place] [address] Nov, [facility] [address] [id number] [address] [place] [address], [place] [address] Nov, [facility] [address] [id number] [address] [place] [address], [place] [address] Nov, [facility] [address] [id number] [address] [place] [address], [place] [address] Oct, [facility] [address] [id number] [address] [place] [address], [place] [address] Sep, [facility] [address] [id number] [address] [place] [address], [place] [address] Sep, [facility] [address] [id number] [address] [place] [address], [place] [address] Sep, [facility] [address] [id number] [address] [place] [address], [place] [address] Sep, [facility] [address] [id number] [address] [place] [address], [place] [address] 16 Sep, 2011 [facility] [address] [id number] [address] [place] [address], [place] [address] 16 Sep, 2011 [facility] [address] [id number] [address] [place] [address], [place] [address] 15 Sep, 2011 [facility] [address] [id number] [address] [place] [address], [place] [address] 15 Sep, 2011 [facility] [address] [id number] [address] [place] [address], [place] [address] 05 Aug, 2011 [facility] [address] [id number] [address] [place] [address], [place] [address] Jul, [facility] [address] [id number] [address] [place] [address], [place] [address] Jul, [facility] [address] [id number] [address] [place] [address], [place] [address] Jul, [facility] [address] [id number] [address] [place] [address], [place] [address] Jun, [facility] [address] [id number] [address] [place] [address], [place] [address] Jul, [facility] [address] [id number] [address] [place] [address], [place] [address] Jul, [facility] [address] [id number] [address] [place] [address], [place] [address] 16 Jul, 2010 [facility] [address] [id number] [address] [place] [address], [place] [address] Jul, [facility] [address] [id number] [address] [place] [address], [place] [address] Jul, [facility] [address] [id number] [address] [place] [address], [place] [address] May, [facility] [address] [id number] [address] [place] [address], [place] [address] May, [facility] [address] [id number] [address] [place] [address], [place] [address] May, [facility] [address] [facility] [id number] [address] [place] [phone] Apr, [facility] [address] [facility] [id number] [address] [place] [phone] Jun, [facility] [address] [facility] [id number] [address] [place] [phone] Jun, [facility] [address] [facility] [id number] [address] [place] [phone] May, [facility] [address] [facility] [id number] [address] [place] [phone] Jan, IMMUNIZATIONS Vaccine Route Administration Date Status FLULAVAL QUAD 0.5ML (6 MO & UP) 2017 IM Intramuscular Jun 02 Administered SOCIAL HISTORY Never Assessed REASON FOR VISIT Flu shot. [email or web address] PLAN OF CARE VITAL SIGNS MEDICATIONS Unknown Medications RESULTS No Results PROCEDURES Procedure Date Ordered Result Body Site FLULAVAL QUAD 0.5ML (6 MO AND UP) 2018 Jun 02, 2018 SINGLE IMMUNIZATION ADMIN Jun 02, 2018 INSTRUCTIONS MEDICATIONS ADMINISTERED No Known Medications [...]
--- OUTSIDE RECORDS SUMMARY | 2019-11-01 20:30 | XMS REPORT ---
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 [employer] Name Role Phone IRVIN RUIZ Unavailable PROBLEMS Type Condition ICD9-CM Code [id number] Code Onset Dates Condition S tatus SNOMED Code Problem Essential hypertension I10 Active 03630733 Problem Type 2 diabetes mellitus without complications E11 .9 Active 66485442 Problem Costochondritis 733.6 Active 6410 9004 Problem Diabetes 250.00 Active 39533223 Problem Unspecified cardiac dysrhythmia 427.9 Active [id number] ALLERGIES Substance Reaction Event Type Date Status Shrimp (Diagnostic) anaphylaxis Drug Allergy Oct, Active Metformin HCl Black outs Drug Allergy Oct, Active Glucotrol XL headache Drug Allergy Oct, Active Doxycycline Hyclate nausea Drug Allergy Oct, Active ENCOUNTERS Encounter Location Date Diagnosis [facility] [id number] [place] [address] Apr, [facility] [id number] [address] [place] [address] Mar, Type 2 diabetes mellitus wit hout complications E11.9 [facility] [id number] [place] [address] Mar, Type 2 diabetes mellitus wit hout complications E11.9 [facility] [address] [id number] [address] [place] [address] Feb, [facility] [id number] [place] [address] Jan, [facility] [id number] [place] [address] Nov, Type 2 diabetes mellitus wit hout complications E11.9 [facility] [address] [id number] [address] [place] [address] Oct, [facility] [address] [id number] [address] [place] [address] Oct, Labia irritation N90.89 [facility] [address] [id number] [address] [place] [address] Sep, [facility] [address] [id number] [address] [place] [phone] Sep, [facility] [address] [id number] [address] [place] [address] Sep, [facility] [address] [id number] [address] [place] [phone] Aug, [facility] [address] [id number] [address] [place] [address] Jul, [facility] [address] [id number] [address] [place] [address] Jul, [facility] [address] [id number] [address] [place] [address] Mar, Type 2 diabetes mellitus wit hout complications E11.9 ; Acute pain of right knee M25.561 and Essential hypertension I10 [facility] [address] [facility] [id number] [address] [place] [address] Mar, [facility] [address] [id number] [address] [place] [address] Mar, Dysuria R30.0 [facility] [address] [id number] [address] [place] [address] December, [facility] [address] [facility] [id number] [address] [place] [address] Nov, [facility] [address] [facility] [id number] [address] [place] [address] Nov, Dental examination Z01.20 [facility] [address] [id number] [address] [place] [address] Nov, Dental examination Z01.20 [place] [address] [id number] [address] [place] [address] Nov, Non-intractable vomiting wit h nausea, unspecified vomiting type R11.2 ; Arthralgia, unspecified joint M25.50 ; Fever, unspecified fever cause R50.9 ; Type 2 diabetes mellitus without complications E11.9 and Tooth pain K08.89 [place] [address] [id number] [address] [place] [address] Nov, Type 2 diabetes mellitus wit hout complications E11.9 [place] [address] [address] Nov, Type 2 diabetes mellitus wit hout complications E11.9 and Bronchitis J40 [place] [id number] [place] [address] Oct, Type 2 diabetes mellitus wit hout complications E11.9 [place] [id number] [place] [address] Jul, [place] [address] [address] Jul, Dysuria R30.0 ; Hematuria R3 1.9 and Vaginal pain R10.2 [place] [id number] [place] [address] Jul, Dysuria R30.0 ; Vaginal disc harge N89.8 and Low back strain, initial encounter S39.012A [place] [address] [id number] [address] [place] [address] Jun, Bacterial conjunctivitis of right eye H10.9 ; Sore throat J02.9 and Acute non-recurrent maxillary sinusitis J01.00 [place] [address] [id number] [address] [place] [address] Jun, [place] [address] [id number] [address] [place] [address] May, [facility] [address] [id number] [address] [place] [phone] 27 Apr, 2016 [facility] [address] [id number] [address] [place] [address] 14 Apr, 2016 [facility] [address] [id number] [address] [place] [id number] Apr, [facility] [address] [id number] [address] [place] [address] Apr, Type 2 diabetes mellitus wit hout complications E11.9 [facility] [address] [id number] [address] [place] [address] Mar, [facility] [address] [id number] [address] [place] [address] Feb, Bronchitis J40 [facility] [address] [id number] [address] [place] [address] Feb, Bronchitis J40 [facility] [address] [id number] [address] [place] [address] Feb, Type 2 diabetes mellitus wit hout complications E11.9 [facility] [address] [id number] [address] [place] [address] Feb, [facility] [address] [id number] [address] [place] [address] Feb, [facility] [address] [id number] [address] [place] [address] Feb, Type 2 diabetes mellitus wit hout complications E11.9 and Dysuria R30.0 [facility] [address] [id number] [address] [place] [address] Jan, Type 2 diabetes mellitus wit hout complications E11.9 [facility] [address] [id number] [address] [place] [address] Jan, Type 2 diabetes mellitus wit hout complications E11.9 [facility] [address] [facility] [id number] [address] [place] [address] December, Type 2 diabetes mellitus wit hout complications E11.9 [facility] [address] [facility] [id number] [address] [place] [address] Nov, Type 2 diabetes mellitus wit hout complications E11.9 [facility] [id number] [place] [address] Oct, Type 2 diabetes mellitus wit hout complications E11.9 ; Fever R50.9 ; Myalgia M79.1 and Cough R05 [place] [address] [address] 15 Sep, 2015 Dysuria R30.0 and Cystitis N 30.90 [place] [id number] [place] [address] Sep, [place] [id number] [place] [phone] Sep, [facility] [address] [id number] [address] [place] [id number] Aug, Dental examination Z01.20 [facility] [address] [id number] [address] [place] [address] Aug, Type 2 diabetes mellitus wit hout complications E11.9 [facility] [address] [place] [address] Jul, Dysfunction of left eustachi an tube H69.82 [facility] [address] [facility] [id number] [address] [place] [address] Jun, [facility] [address] [id number] [address] [place] [address] Jun, Cellulitis L03.90 [facility] [address] [id number] [address] [place] [address] Jun, [facility] [id number] [place] [address] Jun, [facility] [address] [id number] [address] [place] [address] Jun, [facility] [address] [id number] [address] [place] [address] May, Dermatofibroma of ankle, rig ht D23.71 [facility] [address] [address] May, [facility] [address] [id number] [address] [place] [address] Apr, Diabetes 250.00 and 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 [place] [id number] [place] [address] Apr, [facility] [id number] [place] [address] Apr, [facility] [id number] [place] [address] Apr, Diabetes 250.00 ; Influenza vaccine administered V04.81 and Allergic rhinitis 477.9 [place] [address] [id number] [address] [place] [address] Mar, [facility] [address] [place] [address] Jan, [facility] [address] [place] [address] Jan, DM w/o complication type II 250.00 [place] [address] [id number] [address] [place] [address] December, DM w/o complication type II 250.00 ; Calcaneal spur 726.73 ; Vaginitis due to Amanda 112.1 and Onychomycosis 110.1 [place] [address] [id number] [address] [place] [address] 30 Apr, 2015 Amanda infection of genital region 112.2 [facility] [address] [id number] [address] [place] [address], [place] [address] 14 Nov, 2014 [facility] [address] [id number] [address] [place] [address], [place] [address] 13 Nov, 2014 [facility] [address] [id number] [address] [place] [address], [place] [address] Oct, [facility] [address] [id number] [address] [place] [address], [place] [address] Oct, [facility] [address] [id number] [address] [place] [address], [place] [address] Sep, [facility] [address] [id number] [address] [place] [address], [place] [address] Sep, [facility] [address] [id number] [address] [place] [address], [place] [address] Jul, [facility] [address] [id number] [address] [place] [address], [place] [address] Jul, [facility] [address] [id number] [address] [place] [address], [place] [address] Jun, [facility] [address] [id number] [address] [place] [address], [place] [address] Jun, [facility] [address] [id number] [address] [place] [address] Jun, [facility] [address] [id number] [address] [place] [address] Jun, [facility] [address] [id number] [address] [place] [address], [place] [address] May, [facility] [address] [id number] [address] [place] [address], [place] [address] May, [facility] [address] [id number] [address] [place] [address], [place] [address] May, [facility] [address] [id number] [address] [place] [address], [place] [address] May, [facility] [place] [facility] [address] [id number] [address] [place] [address], [place] [address] Apr, [facility] [place] [facility] [address] [id number] [address] [place] [address], [place] [address] Apr, [facility] [place] [facility] [address] [id number] [address] [place] [address], [place] [address] Apr, [facility] [place] [facility] [address] [id number] [address] [place] [address], [place] [address] Apr, [facility] [place] [facility] [address] [id number] [address] [place] [address], [place] [address] Mar, [facility] [place] [facility] [address] [id number] [address] [place] [address], [place] [address] Mar, [facility] [place] [facility] [address] [id number] [address] [place] [address], [place] [address] Mar, [facility] [place] [facility] [address] [id number] [address] [place] [address], [place] [address] Mar, [facility] [place] [facility] [address] [id number] [address] [place] [address], [place] [address] Mar, [facility] [place] [facility] [address] [id number] [address] [place] [address], [place] [address] Mar, [facility] [place] [facility] [address] [id number] [address] [place] [address], [place] [address] Mar, [facility] [place] [facility] [address] [id number] [address] [place] [address], [place] [address] Mar, [facility] [place] [facility] [address] [id number] [address] [place] [address], [place] [address] Mar, [facility] [place] [facility] [address] [id number] [address] [place] [address], [place] [address] Mar, [facility] [place] [facility] [address] [id number] [address] [place] [address], [place] [address] Mar, [facility] [place] [facility] [address] [id number] [address] [place] [address], [place] [address] Mar, [facility] [address] [id number] [address] [place] [address], [place] [address] Feb, [facility] [address] [id number] [address] [place] [address], [place] [address] Feb, [facility] [address] [id number] [address] [place] [address], [place] [address] Jan, [facility] [address] [id number] [address] [place] [address], [place] [address] Jan, [facility] [address] [id number] [address] [place] [address], [place] [address] Jan, [facility] [address] [id number] [address] [place] [address], [place] [address] Jan, [facility] [address] [id number] [address] [place] [address], [place] [address] December, [facility] [address] [id number] [address] [place] [address], [place] [address] December, [facility] [address] [id number] [address] [place] [address], [place] [address] December, [facility] [address] [id number] [address] [place] [address], [place] [address] December, [facility] [address] [id number] [address] [place] [address], [place] [address] Nov, [facility] [address] [id number] [address] [place] [address], [place] [address] Nov, [facility] [place] [facility] [address] [id number] [address] [place] [address], [place] [address] Nov, [facility] [address] [id number] [address] [place] [address], [place] [address] Nov, [facility] [place] [facility] [address] [id number] [address] [place] [address], [place] [address] Nov, [facility] [address] [id number] [address] [place] [address], [place] [address] Nov, [facility] [address] [id number] [address] [place] [address], [place] [address] Nov, [facility] [address] [id number] [address] [place] [address], [place] [address] Oct, [facility] [place] [facility] [address] [id number] [address] [place] [address], [place] [address] Oct, [facility] [address] [id number] [address] [place] [address], [place] [address] Oct, [facility] [address] [id number] [address] [place] [address], [place] [address] Oct, [facility] [address] [id number] [address] [place] [address], [place] [address] Oct, [facility] [place] [facility] [address] [id number] [address] [place] [address], [place] [address] Oct, [facility] [address] [id number] [address] [place] [address], [place] [address] Oct, [facility] [address] [id number] [address] [place] [address], [place] [address] 07 Sep, 2013 [facility] [address] [id number] [address] [place] [address], [place] [address] 07 Sep, 2013 [facility] [place] [facility] [address] [id number] [address] [place] [address], [place] [address] Sep, [facility] [place] [facility] [address] [id number] [address] [place] [address], [place] [address] Sep, [facility] [place] [facility] [address] [id number] [address] [place] [address], [place] [address] Aug, [facility] [place] [facility] [address] [id number] [address] [place] [address], [place] [address] Aug, [facility] [place] [facility] [address] [id number] [address] [place] [address], [place] [address] Aug, [facility] [address] [id number] [address] [place] [address], [place] [address] Aug, [facility] [address] [id number] [address] [place] [address], [place] [id number] Jul, [facility] [address] [id number] [address] [place] [address], [place] [address] Jul, [facility] [address] [id number] [address] [place] [address], [place] [address] Apr, [facility] [address] [id number] [address] [place] [address], [place] [address] Apr, [facility] [address] [id number] [address] [place] [address], [place] [id number] Mar, [facility] [address] [id number] [address] [place] [address], [place] [id number] Mar, [facility] [address] [id number] [address] [place] [address], [place] [address] Mar, [facility] [address] [id number] [address] [place] [address], [place] [address] Mar, [facility] [address] [id number] [address] [place] [address], [place] [address] Mar, [facility] [address] [id number] [address] [place] [address], [place] [address] Mar, [facility] [address] [id number] [address] [place] [address], [place] [id number] Mar, [facility] [address] [id number] [address] [place] [address], [place] [address] Mar, [facility] [address] [id number] [address] [place] [address], [place] [address] Mar, [facility] [address] [id number] [address] [place] [address], [place] [address] Mar, [facility] [address] [id number] [address] [place] [address], [place] [id number] Feb, [facility] [address] [id number] [address] [place] [address], [place] [id number] Feb, [facility] [address] [id number] [address] [place] [address], [place] [id number] Feb, [facility] [address] [id number] [address] [place] [address], [place] [id number] Feb, [facility] [address] [id number] [address] [place] [address], [place] [id number] Jan, [facility] [address] [id number] [address] [place] [address], [place] [id number] Nov, [facility] [address] [id number] [address] [place] [address], [place] [id number] 16 Nov, 2012 [facility] [address] [id number] [address] [place] [address], [place] [id number] 15 Nov, 2012 [facility] [address] [id number] [address] [place] [address], [place] [id number] Nov, [facility] [address] [id number] [address] [place] [address], [place] [id number] Oct, [facility] [place] [address] [id number] [address] [place] [address], [place] [id number] Sep, [facility] [address] [id number] [address] [place] [address], [place] [id number] Sep, [facility] [address] [id number] [address] [place] [address], [place] [id number] Aug, [facility] [address] [id number] [address] [place] [address], [place] [id number] Jul, [facility] [address] [id number] [address] [place] [address], [place] [id number] Jul, [facility] [address] [id number] [address] [place] [address], [place] [id number] May, [facility] [address] [id number] [address] [place] [address], [place] [id number] May, [facility] [address] [id number] [address] [place] [address], [place] [id number] May, [facility] [address] [id number] [address] [place] [address], [place] [id number] May, [facility] [address] [id number] [address] [place] [address], [place] [id number] Apr, [facility] [address] [id number] [address] [place] [address], [place] [id number] Mar, [facility] [address] [id number] [address] [place] [address], [place] [id number] Mar, [facility] [address] [id number] [address] [place] [address], [place] [id number] Mar, [facility] [address] [id number] [address] [place] [address], [place] [id number] Mar, [facility] [address] [id number] [address] [place] [address], [place] [id number] Mar, [facility] [address] [id number] [address] [place] [address], [place] [id number] Mar, [facility] [address] [id number] [address] [place] [address], [place] [id number] Mar, [facility] [address] [id number] [address] [place] [address], [place] [id number] Mar, [facility] [address] [id number] [address] [place] [address], [place] [id number] Feb, [facility] [address] [id number] [address] [place] [address], [place] [id number] Feb, [facility] [address] [id number] [address] [place] [address], [place] [id number] Jan, [facility] [address] [id number] [address] [place] [address], [place] [id number] December, [facility] [address] [id number] [address] [place] [address], [place] [id number] December, [facility] [address] [id number] [address] [place] [address], [place] [id number] Nov, [facility] [address] [id number] [address] [place] [address], [place] [id number] Nov, [facility] [address] [id number] [address] [place] [address], [place] [id number] Nov, [facility] [address] [id number] [address] [place] [address], [place] [id number] Nov, [facility] [address] [id number] [address] [place] [address], [place] [id number] Oct, [facility] [address] [id number] [address] [place] [address], [place] [id number] 29 Sep, 2011 [facility] [address] [id number] [address] [place] [address], [place] [id number] Sep, [facility] [address] [id number] [address] [place] [address], [place] [id number] Sep, [facility] [address] [id number] [address] [place] [address], [place] [id number] 17 Sep, 2011 [facility] [address] [id number] [address] [place] [address], [place] [id number] 16 Sep, 2011 [facility] [address] [id number] [address] [place] [address], [place] [id number] 16 Sep, 2011 [facility] [address] [id number] [address] [place] [address], [place] [id number] 15 Sep, 2011 [facility] [address] [id number] [address] [place] [address], [place] [id number] 15 Sep, 2011 [facility] [address] [id number] [address] [place] [address], [place] [id number] 05 Aug, 2011 [facility] [place] [address] [id number] [address] [place] [address], [place] [id number] 29 Jul, 2011 [facility] [address] [id number] [address] [place] [address], [place] [id number] 14 Jul, 2011 [facility] [address] [id number] [address] [place] [address], [place] [id number] 14 Jul, 2011 [facility] [address] [id number] [address] [place] [address], [place] [id number] 08 Jun, 2011 [facility] [address] [id number] [address] [place] [address], [place] [id number] Jul, [facility] [address] [id number] [address] [place] [address], [place] [id number] Jul, [facility] [address] [id number] [address] [place] [address], [place] [id number] 16 Jul, 2010 [facility] [address] [id number] [address] [place] [address], [place] [id number] 02 Jul, 2010 [facility] [address] [id number] [address] [place] [address], [place] [phone] Jul, [facility] [address] [id number] [address] [place] [address], [place] [id number] 28 May, 2010 [facility] [address] [id number] [address] [place] [address], [place] [id number] May, [facility] [address] [id number] [address] [place] [address], [place] [id number] May, [facility] [address] [id number] [address] [place] [address], [place] [id number] 15 Apr, 2010 [facility] [address] [id number] [address] [place] [address], [place] [id number] 13 Jun, 2009 [facility] [address] [id number] [address] [place] [address], [place] [id number] Jun, [facility] [address] [facility] [id number] [address] [place] [id number] May, [facility] [address] [facility] [id number] [address] [place] [id number] Jan, IMMUNIZATIONS No Known Immunizations SOCIAL HISTORY Never Assessed REASON FOR VISIT Labial burning intermittently x 9 days, no noted discharge--ABoggsLPN PLAN OF CARE Activity Details Follow Up prn Reason: VITAL SIGNS Height 63 in 2017-11-05 Weight 177.8 lbs 2017-11-05 Temperature 97.4 degrees Fahrenheit 2017-11-05 Heart Rate 84 bpm 2017-11-05 Respiratory Rate 18 2017-11-05 BMI 31.49 kg/m2 2017-11-05 Blood pressure systolic 110 mmHg 2017-11-05 Blood pressure diastolic 60 mmHg 2017-11-05 MEDICATIONS Medication Instructions Dosage Frequency Start Date End Date Duration S tatus Acyclovir 400 mg orally 3 times a day one tab 8h Oct, Nov, 10 days Active Januvia 100 mg Orally Once a day 1 tablet 24h 90 day s Active GlipiZIDE ER 10 mg Orally 2 times a day 1 tablet 12h 30 Active Trulicity 0.75 MG/0.5ML Subcutaneous once weekly 0.5 ml Active Blood Glucose Monitor System w/Device Contour Next 3 times a day test 3 times per day 8h Sep, Active Blood Glucose Test Strip Contour Next 3 times a day test 3 times pe r day 8h Sep, Active Atenolol 50 mg Orally Once a day 1 tablet 24h 30 Active RESULTS Name Result Date Reference Range UA LONG DIP (IN HOUSE) 2017-11-05 Lot # [id number] Exp date 06/2019 Clarity Clear Color Yellow Odor None GLU 1+ LATOYA Negativwe KET Negative SG <=1.005 BLO Negative pH 5.0 Protein Negative URO 0.2 NIT Negative HOLLY Negative Lot # Exp date PROCEDURES Procedure Date Ordered Result Body Site URINALYSIS, AUTO, W/O SCOPE November 05, 2017 INSTRUCTIONS MEDICATIONS ADMINISTERED No Known Medications MEDICAL [...]
--- OUTSIDE RECORDS SUMMARY | 2019-11-01 20:30 | XMS REPORT ---
Author Author Nyasia RUIZ [facility] Address [address] [place] [address] Care Team Providers Care Sharepoint Designer Developer Name Role Phone IRVIN RUIZ Unavailable PROBLEMS Type Condition ICD9-CM Code GIY56-RA Code Onset Dates Condition S tatus SNOMED Code Problem Grief reaction F43.21 Active 87345 5009 Problem Essential hypertension I10 Active 36641288 Problem Unspecified cardiac dysrhythmia 427.9 Active 812621094 Problem Costochondritis 733.6 Active 6410 9004 Problem Type 2 diabetes mellitus without complications E11 .9 Active 49452924 Problem Diabetes 250.00 Active [id number] ALLERGIES No Information ENCOUNTERS Encounter Location Date Diagnosis [facility] [address] [facility] [id number] [address] [place] [id number] Apr, [facility] [address] [facility] [id number] [address] [place] [phone] Apr, Type 2 diabetes mellitus wit hout complications E11.9 [facility] [address] [facility] [id number] [address] [place] [phone] Apr, Type 2 diabetes mellitus wit hout complications E11.9 ; Grief reaction F43.21 and Essential hypertension I10 [facility] [address] [facility] [id number] [address] [place] [phone] Mar, Type 2 diabetes mellitus wit hout complications E11.9 [facility] [address] [facility] [id number] [address] [place] [phone] Mar, Type 2 diabetes mellitus wit hout complications E11.9 [facility] [address] [facility] [id number] [address] [place] [phone] Feb, [facility] [address] [facility] [id number] [address] [place] [phone] Jan, [facility] [address] [id number] [address] [place] [phone] Nov, Type 2 diabetes mellitus wit hout complications E11.9 [facility] [address] [id number] [address] [place] [phone] Oct, [facility] [address] [id number] [address] [place] [id number] Oct, Labia irritation N90.89 [facility] [address] [id number] [address] [place] [phone] Sep, [facility] [address] [id number] [address] [place] [phone] Sep, [facility] [address] [id number] [address] [place] [id number] Sep, [facility] [address] [id number] [address] [place] [phone] Aug, [facility] [address] [id number] [address] [place] [phone] Jul, [facility] [address] [id number] [address] [place] [phone] Jul, [facility] [address] [id number] [address] [place] [phone] Mar, Type 2 diabetes mellitus wit hout complications E11.9 ; Acute pain of right knee M25.561 and Essential hypertension I10 [facility] [address] [id number] [address] [place] [phone] Mar, [facility] [address] [id number] [address] [place] [phone] Mar, Dysuria R30.0 [facility] [address] [id number] [address] [place] [phone] December, [facility] [address] [id number] [address] [place] [id number] Nov, [place] [address] [facility] [id number] [address] [place] [phone] Nov, Dental examination Z01.20 [place] [id number] [facility] [id number] [address] [place] [phone] Nov, Dental examination Z01.20 [place] [address] [facility] [id number] [address] [place] [id number] Nov, Non-intractable vomiting wit h nausea, unspecified vomiting type R11.2 ; Arthralgia, unspecified joint M25.50 ; Fever, unspecified fever cause R50.9 ; Type 2 diabetes mellitus without complications E11.9 and Tooth pain K08.89 [place] [address] [place] [id number] [address] [place] [phone] Nov, Type 2 diabetes mellitus wit hout complications E11.9 [place] [address] [place] [id number] [address] [place] [phone] Nov, Type 2 diabetes mellitus wit hout complications E11.9 and Bronchitis J40 [place] [address] [place] [id number] [address] [place] [phone] Oct, Type 2 diabetes mellitus wit hout complications E11.9 [place] [address] [place] [id number] [address] [place] [phone] Jul, [place] [address] [place] [id number] [address] [place] [phone] Jul, Dysuria R30.0 ; Hematuria R3 1.9 and Vaginal pain R10.2 [place] [address] [facility] [id number] [address] [place] [phone] Jul, Dysuria R30.0 ; Vaginal disc harge N89.8 and Low back strain, initial encounter S39.012A [place] [address] [place] [id number] [address] [place] [phone] Jun, Bacterial conjunctivitis of right eye H10.9 ; Sore throat J02.9 and Acute non-recurrent maxillary sinusitis J01.00 [facility] [address] [id number] [address] [place] [id number] Jun, [facility] [address] [id number] [address] [place] [phone] May, [facility] [address] [id number] [address] [place] [phone] Apr, [facility] [address] [id number] [address] [place] [phone] 14 Apr, 2016 [facility] [address] [id number] [address] [place] [phone] Apr, [facility] [address] [id number] [address] [place] [id number] Apr, Type 2 diabetes mellitus wit hout complications E11.9 [facility] [address] [id number] [address] [place] [phone] Mar, [facility] [address] [id number] [address] [place] [phone] Feb, Bronchitis J40 [facility] [address] [id number] [address] [place] [phone] Feb, Bronchitis J40 [facility] [address] [id number] [address] [place] [id number] Feb, Type 2 diabetes mellitus wit hout complications E11.9 [facility] [address] [id number] [address] [place] [phone] Feb, [facility] [address] [id number] [address] [place] [id number] Feb, [facility] [address] [id number] [address] [place] [phone] Feb, Type 2 diabetes mellitus wit hout complications E11.9 and Dysuria R30.0 [facility] [address] [id number] [address] [place] [phone] Jan, Type 2 diabetes mellitus wit hout complications E11.9 [facility] [id number] [place] [phone] Jan, Type 2 diabetes mellitus wit hout complications E11.9 [facility] [address] [id number] December, Type 2 diabetes mellitus wit hout complications E11.9 [facility] [address] [place] [id number] [address] [place] [phone] Nov, Type 2 diabetes mellitus wit hout complications E11.9 [place] [address] [address] Oct, Type 2 diabetes mellitus wit hout complications E11.9 ; Fever R50.9 ; Myalgia M79.1 and Cough R05 [place] [address] [place] [id number] [address] [place] [phone] 15 Sep, 2015 Dysuria R30.0 and Cystitis N 30.90 [place] [address] [place] [id number] [address] [place] [phone] Sep, [place] [address] [place] [id number] [address] [place] [id number] 04 Sep, 2015 [facility] [address] [place] [id number] [address] [place] [id number] Aug, Dental examination Z01.20 [place] [id number] [place] [phone] Aug, Type 2 diabetes mellitus wit hout complications E11.9 [facility] [id number] [place] [id number] Jul, Dysfunction of left eustachi an tube H69.82 [facility] [id number] [place] [id number] Jun, [facility] [address] [place] [id number] [address] [place] [phone] Jun, Cellulitis L03.90 [facility] [address] [facility] [id number] [address] [place] [id number] Jun, [facility] [address] [place] [id number] [address] [place] [phone] Jun, [facility] [address] [place] [id number] [address] [place] [id number] Jun, [facility] [address] [place] [id number] [address] [place] [phone] May, Dermatofibroma of ankle, rig ht D23.71 [place] [address] [place] [id number] [place] [id number] May, [facility] [address] [place] [id number] [place] [phone] Apr, Diabetes 250.00 and 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 [place] [address] [place] [id number] [address] [place] [phone] Apr, [facility] [address] [place] [id number] [address] [place] [phone] Apr, [facility] [address] [place] [id number] [address] [place] [phone] Apr, Diabetes 250.00 ; Influenza vaccine administered V04.81 and Allergic rhinitis 477.9 [place] [address] [place] [id number] [address] [place] [phone] Mar, [facility] [address] [place] [id number] [address] [place] [id number] Jan, [facility] [address] [place] [id number] [address] [place] [id number] Jan, DM w/o complication type II 250.00 [facility] [address] [place] [id number] [address] [place] [id number] December, DM w/o complication type II 250.00 ; Calcaneal spur 726.73 ; Vaginitis due to Amanda 112.1 and Onychomycosis 110.1 [facility] [address] [id number] [address] [place] [id number] 30 Nov, 2014 Amanda infection of genital region 112.2 [facility] [address] [id number] [address] [place] [phone] 14 Nov, 2014 [facility] [address] [id number] [address] [place] [id number] 13 Nov, 2014 [facility] [address] [id number] [address] [place] [phone] Oct, [facility] [address] [id number] [address] [place] [phone] Oct, [facility] [address] [id number] [address] [place] [phone] Sep, [facility] [address] [id number] [address] [place] [phone] Sep, [facility] [address] [id number] [address] [place] [id number] Jul, [facility] [address] [id number] [address] [place] [id number] Jul, [facility] [address] [id number] [address] [place] [phone] Jun, [facility] [address] [id number] [address] [place] [phone] Jun, [facility] [address] [id number] [address] [place] [phone] Jun, [facility] [address] [id number] [address] [place] [phone] Jun, [facility] [address] [id number] [address] [place] [phone] May, [facility] [address] [id number] [address] [place] [phone] May, [facility] [address] [id number] [address] [place] [address], [place] [address] May, [facility] [address] [id number] [address] [place] [address], [place] [address] May, [facility] [address] [id number] [address] [place] [address], [place] [address] Apr, [facility] [address] [id number] [address] [place] [address], [place] [address] Apr, [facility] [address] [id number] [address] [place] [address], [place] [address] Apr, [facility] [address] [id number] [address] [place] [address], [place] [address] Apr, [facility] [address] [id number] [address] [place] [address], [place] [address] Mar, [facility] [address] [id number] [address] [place] [address], [place] [address] Mar, [facility] [address] [id number] [address] [place] [address], [place] [address] Mar, [facility] [address] [id number] [address] [place] [address], [place] [address] Mar, [facility] [address] [id number] [address] [place] [address], [place] [address] Mar, [facility] [address] [id number] [address] [place] [address], [place] [address] Mar, [facility] [address] [id number] [address] [place] [address], [place] [address] Mar, [facility] [address] [id number] [address] [place] [address], [place] [address] Mar, [facility] [address] [id number] [address] [place] [address], [place] [address] Mar, [facility] [address] [id number] [facility] [place] [address] Mar, [facility] [address] [id number] [facility] [place] [address] Mar, [facility] [address] [id number] [address] [place] [address], [place] [address] Mar, [facility] [address] [id number] [address] [place] [address], [place] [address] Feb, [facility] [address] [id number] [address] [place] [address], [place] [address] Feb, [facility] [address] [id number] [address] [place] [address], [place] [address] Jan, [facility] [address] [id number] [address] [place] [address], [place] [address] Jan, [facility] [address] [id number] [address] [place] [address], [place] [address] Jan, [facility] [address] [id number] [address] [place] [address], [place] [address] Jan, [facility] [address] [id number] [address] [place] [address], [place] [address] December, [facility] [address] [id number] [address] [place] [address], [place] [address] December, [facility] [address] [id number] [address] [place] [address], [place] [address] December, [facility] [address] [id number] [address] [place] [address], [place] [address] December, [facility] [address] [id number] [address] [place] [address], [place] [address] Nov, [facility] [address] [id number] [address] [place] [address], [place] [address] Nov, [facility] [address] [id number] [address] [place] [address], [place] [address] Nov, [facility] [address] [id number] [facility] [place] [address] Nov, [facility] [address] [id number] [address] [place] [address], [place] [address] Nov, [facility] [address] [id number] [address] [place] [address], [place] [address] Nov, [facility] [address] [id number] [address] [place] [address], [place] [address] Nov, [facility] [address] [id number] [address] [place] [address], [place] [address] Oct, [facility] [address] [id number] [address] [place] [address], [place] [address] Oct, [facility] [address] [id number] [address] [place] [address], [place] [address] Oct, [facility] [address] [id number] [address] [place] [address], [place] [address] Oct, [facility] [address] [id number] [address] [place] [address], [place] [address] Oct, [facility] [address] [id number] [address] [place] [address], [place] [address] Oct, [facility] [address] [id number] [address] [place] [address], [place] [address] Oct, [facility] [address] [id number] [address] [place] [address], [place] [address] Sep, [facility] [address] [id number] [address] [place] [address], [place] [address] Sep, [facility] [address] [id number] [address] [place] [address], [place] [address] Sep, [facility] [address] [id number] [address] [place] [address], [place] [address] Sep, [facility] [address] [id number] [address] [place] [address], [place] [address] 07 Aug, 2013 [facility] [address] [id number] [address] [place] [address], [place] [address] Aug, [facility] [address] [id number] [address] [place] [address], [place] [address] Aug, [facility] [address] [id number] [address] [place] [address], [place] [address] Aug, [facility] [address] [id number] [address] [place] [address], [place] [address] Jul, [facility] [address] [id number] [address] [place] [address], [place] [address] Jul, [facility] [address] [id number] [address] [place] [address], [place] [address] Apr, [facility] [address] [id number] [address] [place] [address], [place] [address] Apr, [facility] [address] [id number] [address] [place] [address], [place] [address] Mar, [facility] [address] [id number] [address] [place] [address], [place] [address] Mar, [facility] [address] [id number] [address] [place] [address], [place] [address] Mar, [facility] [address] [id number] [address] [place] [address], [place] [address] Mar, [facility] [address] [id number] [address] [place] [address], [place] [address] Mar, [facility] [address] [id number] [address] [place] [address], [place] [address] Mar, [facility] [address] [id number] [address] [place] [address], [place] [address] Mar, [facility] [address] [id number] [address] [place] [address], [place] [address] Mar, [facility] [address] [id number] [address] [place] [address], [place] [address] Mar, [facility] [address] [id number] [address] [place] [address], [place] [address] Mar, [facility] [address] [id number] [address] [place] [address], [place] [address] Feb, [facility] [address] [id number] [address] [place] [address], [place] [address] Feb, [facility] [address] [id number] [address] [place] [address], [place] [address] Feb, [facility] [address] [id number] [address] [place] [address], [place] [address] Feb, [facility] [address] [id number] [address] [place] [address], [place] [address] Jan, [facility] [address] [id number] [address] [place] [address], [place] [address] Nov, [facility] [address] [id number] [address] [place] [address], [place] [address] Nov, [facility] [address] [id number] [address] [place] [address], [place] [address] Nov, [facility] [address] [id number] [address] [place] [address], [place] [address] Nov, [facility] [address] [id number] [address] [place] [address], [place] [address] Oct, [facility] [address] [id number] [address] [place] [address], [place] [address] Sep, [facility] [address] [id number] [address] [place] [address], [place] [address] Sep, [facility] [address] [id number] [address] [place] [address], [place] [address] Aug, [facility] [address] [id number] [address] [place] [address], [place] [address] Jul, [facility] [address] [id number] [address] [place] [address], [place] [address] Jul, [facility] [address] [id number] [address] [place] [address], [place] [address] May, [facility] [address] [id number] [address] [place] [address], [place] [address] May, [facility] [address] [id number] [address] [place] [address], [place] [address] May, [facility] [address] [id number] [address] [place] [address], [place] [address] May, [facility] [address] [id number] [address] [place] [address], [place] [address] Apr, [facility] [address] [id number] [address] [place] [address], [place] [address] Mar, [facility] [address] [id number] [address] [place] [address], [place] [address] Mar, [facility] [address] [id number] [address] [place] [address], [place] [address] Mar, [facility] [address] [id number] [address] [place] [address], [place] [address] Mar, [facility] [address] [id number] [address] [place] [address], [place] [address] Mar, [facility] [address] [id number] [address] [place] [address], [place] [address] Mar, [facility] [address] [id number] [address] [place] [address], [place] [address] Mar, [facility] [address] [id number] [address] [place] [address], [place] [address] Mar, [facility] [address] [id number] [address] [place] [address], [place] [address] Feb, [facility] [address] [id number] [address] [place] [address], [place] [address] 10 Feb, 2012 [facility] [address] [id number] [address] [place] [address], [place] [address] Jan, [facility] [facility] [address] [id number] [address] [place] [address], [place] [address] December, [facility] [address] [id number] [address] [place] [address], [place] [address] December, [facility] [address] [id number] [address] [place] [address], [place] [address] 23 Nov, 2011 [facility] [address] [id number] [address] [place] [address], [place] [address] Nov, [facility] [address] [id number] [address] [place] [address], [place] [address] 18 Nov, 2011 [facility] [address] [id number] [address] [place] [address], [place] [address] Nov, [facility] [address] [id number] [address] [place] [address], [place] [address] Oct, [facility] [address] [id number] [address] [place] [address], [place] [address] 29 Sep, 2011 [facility] [address] [id number] [address] [place] [address], [place] [address] Sep, [facility] [address] [id number] [address] [place] [address], [place] [address] Sep, [facility] [address] [id number] [address] [place] [address], [place] [address] Sep, [facility] [address] [id number] [address] [place] [address], [place] [address] Sep, [facility] [address] [id number] [address] [place] [address], [place] [address] Sep, [facility] [address] [id number] [address] [place] [id number] 15 Sep, 2011 [facility] [address] [id number] [address] [place] [address], [place] [address] 15 Sep, 2011 [facility] [address] [id number] [address] [place] [address], [place] [address] 05 Aug, 2011 [facility] [address] [id number] [address] [place] [address], [place] [address] Jul, [facility] [address] [id number] [address] [place] [address], [place] [address] 14 Jul, 2011 [facility] [address] [id number] [address] [place] [address], [place] [address] Jul, [facility] [address] [id number] [address] [place] [address], [place] [address] Jun, [facility] [address] [id number] [address] [place] [address], [place] [address] Jul, [facility] [address] [id number] [address] [place] [address], [place] [address] Jul, [facility] [address] [id number] [address] [place] [address], [place] [address] Jul, [facility] [address] [id number] [address] [place] [address], [place] [address] Jul, [facility] [address] [id number] [address] [place] [address], [place] [address] Jul, [facility] [address] [id number] [address] [place] [address], [place] [address] May, [facility] [address] [id number] [address] [place] [address], [place] [address] May, [facility] [address] [id number] [address] [place] [address], [place] [address] May, [facility] [address] [id number] [address] [place] [address], [place] [address] 15 Apr, 2010 [facility] [address] [facility] [id number] [address] [place] [id number] Jun, [facility] [address] [facility] [id number] [address] [place] [id number] Jun, [facility] [address] [facility] [id number] [address] [place] [id number] May, [facility] [address] [facility] [id number] [address] [place] [id number] Jan, IMMUNIZATIONS No Known Immunizations SOCIAL HISTORY Never Assessed REASON FOR VISIT PALS/Trulicity PLAN OF CARE VITAL SIGNS MEDICATIONS Medication Instructions Dosage Frequency Start Date End Date Duration S tatus Trulicity 1.5 MG/0.5ML Subcutaneous once weekly Inject 0.5ml 90 days Active RESULTS No Results PROCEDURES No Known [...]
--- OUTSIDE RECORDS SUMMARY | 2019-11-01 20:30 | XMS REPORT ---
Author Author Nyasia RUIZ [facility] Address [address] [place] [address] Care Team Providers Care Paramedic Instructor Name Role Phone IRVIN RUIZ Unavailable PROBLEMS Type Condition ICD9-CM Code [id number] Code Onset Dates Condition S tatus SNOMED Code Problem Grief reaction F43.21 Active 54136 5009 Problem Essential hypertension I10 Active 20190435 Problem Unspecified cardiac dysrhythmia 427.9 Active 309977084 Problem Costochondritis 733.6 Active 6410 9004 Problem Type 2 diabetes mellitus without complications E11 .9 Active 42426750 Problem Diabetes 250.00 Active [id number] ALLERGIES No Information ENCOUNTERS Encounter Location Date Diagnosis [facility] [id number] [place] [address] Apr, Type 2 diabetes mellitus wit hout complications E11.9 [place] [address] [place] [id number] [address] [place] [address] Apr, Type 2 diabetes mellitus wit hout complications E11.9 ; Grief reaction F43.21 and Essential hypertension I10 [facility] [address] [facility] [id number] [address] [place] [address] Mar, Type 2 diabetes mellitus wit hout complications E11.9 [facility] [address] [facility] [id number] [address] [place] [address] Mar, Type 2 diabetes mellitus wit hout complications E11.9 [facility] [address] [facility] [id number] [address] [place] [address] Feb, [facility] [address] [place] [id number] [address] [place] [address] Jan, [facility] [address] [place] [id number] [address] [place] [address] Nov, Type 2 diabetes mellitus wit hout complications E11.9 [facility] [address] [id number] [address] [place] [address] Oct, [facility] [address] [facility] [id number] [address] [place] [address] Oct, Labia irritation N90.89 [facility] [address] [id number] [address] [place] [address] Sep, [facility] [address] [id number] [address] [place] [address] Sep, [facility] [address] [id number] [address] [place] [address] Sep, [facility] [address] [facility] [id number] [address] [place] [address] Aug, [facility] [address] [facility] [id number] [address] [place] [address] Jul, [facility] [address] [facility] [id number] [address] [place] [address] Jul, [facility] [address] [facility] [id number] [address] [place] [address] Mar, Type 2 diabetes mellitus wit hout complications E11.9 ; Acute pain of right knee M25.561 and Essential hypertension I10 [facility] [address] [facility] [id number] [address] [place] [address] Mar, [facility] [address] [facility] [id number] [address] [place] [address] Mar, Dysuria R30.0 [facility] [address] [facility] [id number] [address] [place] [address] December, [facility] [address] [facility] [id number] [address] [place] [address] Nov, [facility] [address] [facility] [id number] [address] [place] [address] Nov, Dental examination Z01.20 [place] [address] [place] [id number] [address] [place] [address] Nov, Dental examination Z01.20 [place] [address] [place] [id number] [place] [address] Nov, Non-intractable vomiting wit h nausea, unspecified vomiting type R11.2 ; Arthralgia, unspecified joint M25.50 ; Fever, unspecified fever cause R50.9 ; Type 2 diabetes mellitus without complications E11.9 and Tooth pain K08.89 [place] [address] [address] Nov, Type 2 diabetes mellitus wit hout complications E11.9 [place] [address] [address] Nov, Type 2 diabetes mellitus wit hout complications E11.9 and Bronchitis J40 [place] [address] [address] Oct, Type 2 diabetes mellitus wit hout complications E11.9 [place] [address] [address] Jul, [place] [address] [address] Jul, Dysuria R30.0 ; Hematuria R3 1.9 and Vaginal pain R10.2 [place] [address] [place] [id number] [place] [address] Jul, Dysuria R30.0 ; Vaginal disc harge N89.8 and Low back strain, initial encounter S39.012A [place] [address] [place] [id number] [address] [place] [address] Jun, Bacterial conjunctivitis of right eye H10.9 ; Sore throat J02.9 and Acute non-recurrent maxillary sinusitis J01.00 [place] [address] [place] [address] Jun, [facility] [address] [id number] [address] [place] [address] May, [facility] [address] [id number] [address] [place] [address] Apr, [facility] [address] [id number] [address] [place] [address] Apr, [facility] [address] [id number] [address] [place] [address] Apr, [facility] [address] [id number] [address] [place] [address] Apr, Type 2 diabetes mellitus wit hout complications E11.9 [facility] [address] [id number] [address] [place] [address] Mar, [facility] [address] [id number] [address] [place] [address] Feb, Bronchitis J40 [facility] [address] [id number] [address] [place] [address] Feb, Bronchitis J40 [facility] [address] [id number] [address] [place] [address] Feb, Type 2 diabetes mellitus wit hout complications E11.9 [facility] [address] [id number] [address] [place] [address] Feb, [facility] [address] [id number] [address] [place] [address] Feb, [facility] [address] [id number] [address] [place] [address] Feb, Type 2 diabetes mellitus wit hout complications E11.9 and Dysuria R30.0 [facility] [address] [id number] [address] [place] [address] Jan, Type 2 diabetes mellitus wit hout complications E11.9 [facility] [id number] [place] [address] 14 Jan, 2016 Type 2 diabetes mellitus wit hout complications E11.9 [facility] [address] [address] December, Type 2 diabetes mellitus wit hout complications E11.9 [facility] [address] [place] [id number] [place] [address] Nov, Type 2 diabetes mellitus wit hout complications E11.9 [facility] [address] [place] [id number] [place] [address] Oct, Type 2 diabetes mellitus wit hout complications E11.9 ; Fever R50.9 ; Myalgia M79.1 and Cough R05 [place] [address] [place] [id number] [place] [address] 15 Sep, 2015 Dysuria R30.0 and Cystitis N 30.90 [place] [address] [place] [id number] [place] [address] 05 Sep, 2015 [facility] [address] [place] [id number] [place] [address] 04 Sep, 2015 [facility] [address] [place] [id number] [address] [place] [id number] Aug, Dental examination Z01.20 [place] [id number] [place] [address] Aug, Type 2 diabetes mellitus wit hout complications E11.9 [facility] [address] [place] [id number] [place] [address] Jul, Dysfunction of left eustachi an tube H69.82 [place] [address] [place] [id number] [place] [address] Jun, [facility] [address] [place] [id number] [place] [address] Jun, Cellulitis L03.90 [facility] [address] [address] Jun, [facility] [address] [address] Jun, [facility] [address] [address] Jun, [facility] [address] [address] May, Dermatofibroma of ankle, rig ht D23.71 [facility] [address] [address] May, [place] [address] [address] Apr, Diabetes 250.00 and 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 [place] [address] [address] Apr, [facility] [address] [address] Apr, [place] [address] [address] Apr, Diabetes 250.00 ; Influenza vaccine administered V04.81 and Allergic rhinitis 477.9 [place] [address] [place] [id number] [place] [address] Mar, [place] [address] [address] Jan, [place] [address] [place] [id number] [place] [address] Jan, DM w/o complication type II 250.00 [place] [address] [address] December, DM w/o complication type II 250.00 ; Calcaneal spur 726.73 ; Vaginitis due to Amanda 112.1 and Onychomycosis 110.1 [facility] [address] [id number] [address] [place] [address], [place] [address] 30 Nov, 2014 Amanda infection of genital region 112.2 [facility] [address] [id number] [address] [place] [address], [place] [address] 14 Nov, 2014 [facility] [address] [id number] [address] [place] [address] 13 Nov, 2014 [facility] [address] [id number] [address] [place] [address], [place] [address] 10 Oct, 2014 [facility] [address] [id number] [address] [place] [address], [place] [address] Oct, [facility] [address] [id number] [address] [place] [address] 24 Sep, 2014 [facility] [address] [id number] [address] [place] [address] Sep, [facility] [address] [id number] [address] [place] [address] Jul, [facility] [address] [id number] [address] [place] [address] Jul, [facility] [address] [id number] [address] [place] [address] Jun, [facility] [address] [id number] [address] [place] [address] Jun, [facility] [address] [id number] [address] [place] [address] Jun, [facility] [address] [id number] [address] [place] [address] Jun, [facility] [address] [id number] [address] [place] [address] May, [facility] [address] [id number] [address] [place] [address] May, [facility] [address] [id number] [address] [place] [address] May, [facility] [address] [id number] [address] [place] [address], [place] [address] May, [facility] [address] [id number] [address] [place] [address], [place] [address] Apr, [facility] [address] [id number] [address] [place] [address], [place] [address] Apr, [facility] [address] [id number] [address] [place] [address], [place] [address] Apr, [facility] [address] [id number] [address] [place] [address], [place] [address] Apr, [facility] [address] [id number] [address] [place] [address], [place] [address] Mar, [facility] [address] [id number] [address] [place] [address], [place] [address] Mar, [facility] [address] [id number] [address] [place] [address], [place] [address] Mar, [facility] [address] [id number] [address] [place] [address], [place] [address] Mar, [facility] [address] [id number] [address] [place] [address], [place] [address] Mar, [facility] [address] [id number] [address] [place] [address], [place] [address] Mar, [facility] [address] [id number] [address] [place] [address], [place] [address] Mar, [facility] [address] [id number] [address] [place] [address], [place] [address] Mar, [facility] [address] [id number] [address] [place] [address], [place] [address] Mar, [facility] [address] [id number] [address] [place] [address], [place] [address] Mar, [facility] [address] [id number] [facility] [place] [address] Mar, [facility] [address] [id number] [facility] [place] [address] Mar, [facility] [address] [id number] [address] [place] [address], [place] [address] Feb, [facility] [address] [id number] [address] [place] [address], [place] [address] Feb, [facility] [address] [id number] [address] [place] [address], [place] [address] Jan, [facility] [address] [id number] [address] [place] [address], [place] [address] Jan, [facility] [address] [id number] [address] [place] [address], [place] [address] Jan, [facility] [address] [id number] [address] [place] [address], [place] [address] Jan, [facility] [address] [id number] [address] [place] [address], [place] [address] December, [facility] [address] [id number] [address] [place] [address], [place] [address] December, [facility] [address] [id number] [address] [place] [address], [place] [address] December, [facility] [address] [id number] [address] [place] [address], [place] [address] December, [facility] [address] [id number] [address] [place] [address], [place] [address] Nov, [facility] [address] [id number] [address] [place] [address], [place] [address] Nov, [facility] [address] [id number] [address] [place] [address], [place] [address] Nov, [facility] [address] [id number] [address] [place] [address], [place] [address] Nov, [facility] [address] [id number] [facility] [place] [address] Nov, [facility] [address] [id number] [address] [place] [address], [place] [address] Nov, [facility] [address] [id number] [address] [place] [address], [place] [address] Nov, [facility] [address] [id number] [address] [place] [address], [place] [address] Oct, [facility] [address] [id number] [address] [place] [address], [place] [address] Oct, [facility] [address] [id number] [address] [place] [address], [place] [address] Oct, [facility] [address] [id number] [address] [place] [address], [place] [address] Oct, [facility] [address] [id number] [address] [place] [address], [place] [address] Oct, [facility] [address] [id number] [address] [place] [address], [place] [address] Oct, [facility] [address] [id number] [address] [place] [address], [place] [address] Oct, [facility] [address] [id number] [address] [place] [address], [place] [address] 07 Sep, 2013 [facility] [address] [id number] [address] [place] [address], [place] [address] 07 Sep, 2013 [facility] [address] [id number] [address] [place] [address], [place] [address] Sep, [facility] [address] [id number] [address] [place] [address], [place] [address] Sep, [facility] [address] [id number] [address] [place] [address], [place] [address] Aug, [facility] [address] [id number] [address] [place] [address], [place] [address] Aug, [facility] [address] [id number] [address] [place] [address], [place] [address] Aug, [facility] [address] [id number] [address] [place] [address], [place] [address] Aug, [facility] [address] [id number] [address] [place] [address], [place] [address] Jul, [facility] [address] [id number] [address] [place] [address], [place] [address] Jul, [facility] [address] [id number] [address] [place] [address], [place] [address] Apr, [facility] [address] [id number] [address] [place] [address], [place] [address] Apr, [facility] [address] [id number] [address] [place] [address], [place] [address] Mar, [facility] [address] [id number] [address] [place] [address], [place] [address] Mar, [facility] [address] [id number] [address] [place] [address], [place] [address] Mar, [facility] [address] [id number] [address] [place] [address], [place] [address] Mar, [facility] [address] [id number] [address] [place] [address], [place] [address] Mar, [facility] [address] [id number] [address] [place] [address], [place] [address] Mar, [facility] [address] [id number] [address] [place] [address], [place] [address] Mar, [facility] [address] [id number] [address] [place] [address], [place] [address] Mar, [facility] [address] [id number] [address] [place] [address], [place] [address] Mar, [facility] [address] [id number] [address] [place] [address], [place] [address] Mar, [facility] [address] [id number] [address] [place] [address], [place] [address] Feb, [facility] [address] [id number] [address] [place] [address], [place] [address] Feb, [facility] [address] [id number] [address] [place] [address], [place] [address] Feb, [facility] [address] [id number] [address] [place] [address], [place] [address] Feb, [facility] [address] [id number] [address] [place] [address], [place] [address] Jan, [facility] [address] [id number] [address] [place] [address], [place] [address] Nov, [facility] [address] [id number] [address] [place] [address], [place] [address] 16 Nov, 2012 [facility] [address] [id number] [address] [place] [address], [place] [address] Nov, [facility] [address] [id number] [address] [place] [address], [place] [address] Nov, [facility] [address] [id number] [address] [place] [address], [place] [address] Oct, [facility] [address] [id number] [address] [place] [address], [place] [address] Sep, [facility] [address] [id number] [address] [place] [address], [place] [address] Sep, [facility] [address] [id number] [address] [place] [address], [place] [address] Aug, [facility] [address] [id number] [address] [place] [address], [place] [address] Jul, [facility] [address] [id number] [address] [place] [address], [place] [address] Jul, [facility] [address] [id number] [address] [place] [address], [place] [address] May, [facility] [address] [id number] [address] [place] [address], [place] [address] May, [facility] [address] [id number] [address] [place] [address], [place] [address] May, [facility] [address] [id number] [address] [place] [address], [place] [address] May, [facility] [address] [id number] [address] [place] [address], [place] [address] Apr, [facility] [address] [id number] [address] [place] [address], [place] [address] Mar, [facility] [address] [id number] [address] [place] [address], [place] [address] Mar, [facility] [address] [id number] [address] [place] [address], [place] [address] Mar, [facility] [address] [id number] [address] [place] [address], [place] [address] Mar, [facility] [address] [id number] [address] [place] [address], [place] [address] Mar, [facility] [address] [id number] [address] [place] [address], [place] [address] Mar, [facility] [address] [id number] [address] [place] [address], [place] [address] Mar, [facility] [address] [id number] [address] [place] [address], [place] [address] Mar, [facility] [address] [id number] [address] [place] [address], [place] [address] Feb, [facility] [address] [id number] [address] [place] [address], [place] [address] Feb, [facility] [address] [id number] [address] [place] [address], [place] [address] Jan, [facility] [address] [id number] [address] [place] [address], [place] [address] December, [facility] [address] [id number] [address] [place] [address], [place] [address] December, [facility] [address] [id number] [address] [place] [address], [place] [address] Nov, [facility] [address] [id number] [address] [place] [address], [place] [address] Nov, [facility] [address] [id number] [address] [place] [address], [place] [address] 18 Nov, 2011 [facility] [address] [id number] [address] [place] [address], [place] [address] Nov, [facility] [address] [id number] [address] [place] [address], [place] [address] Oct, [facility] [address] [id number] [address] [place] [address], [place] [id number] 29 Sep, 2011 [facility] [address] [id number] [address] [place] [address], [place] [address] Sep, [facility] [address] [id number] [address] [place] [address], [place] [address] 17 Sep, 2011 [facility] [address] [id number] [address] [place] [address], [place] [address] 17 Sep, 2011 [facility] [address] [id number] [address] [place] [address], [place] [address] Sep, [facility] [address] [id number] [address] [place] [address], [place] [address] 16 Sep, 2011 [facility] [address] [id number] [address] [place] [address], [place] [address] 15 Sep, 2011 [facility] [address] [id number] [address] [place] [address], [place] [address] 15 Sep, 2011 [facility] [address] [id number] [address] [place] [address], [place] [address] 05 Aug, 2011 [facility] [address] [id number] [address] [place] [address], [place] [address] 29 Jul, 2011 [facility] [address] [id number] [address] [place] [address], [place] [address] 14 Jul, 2011 [facility] [address] [id number] [address] [place] [address], [place] [address] 14 Jul, 2011 [facility] [address] [id number] [address] [place] [address], [place] [id number] 08 Jun, 2011 [facility] [address] [id number] [address] [place] [address], [place] [address] Jul, [facility] [address] [id number] [address] [place] [address], [place] [address] Jul, [facility] [address] [id number] [address] [place] [address], [place] [address] 16 Jul, 2010 [facility] [address] [id number] [address] [place] [address], [place] [address] Jul, [facility] [address] [id number] [address] [place] [address], [place] [address] Jul, [facility] [address] [id number] [address] [place] [address], [place] [address] May, [facility] [address] [id number] [address] [place] [address], [place] [address] May, [facility] [address] [id number] [address] [place] [address], [place] [address] May, [facility] [address] [id number] [address] [place] [address], [place] [address] 15 Apr, 2010 [facility] [address] [id number] [address] [place] [address], [place] [address] Jun, [facility] [address] [facility] [id number] [address] [place] [id number] Jun, [facility] [address] [facility] [id number] [address] [place] [id number] May, [facility] [address] [facility] [id number] [address] [place] [id number] Jan, IMMUNIZATIONS No Known Immunizations SOCIAL HISTORY Never Assessed REASON FOR VISIT labs PLAN OF CARE VITAL SIGNS MEDICATIONS Unknown [...]
--- OUTSIDE RECORDS SUMMARY | 2019-11-01 20:30 | XMS REPORT ---
Author Author Nyasia RUIZ [facility] Address [address] [place] [address] Care Team Providers Care Rand Butter Name Role Phone IRVIN RUIZ Unavailable PROBLEMS Type Condition ICD9-CM Code UOV45-HI Code Onset Dates Condition S tatus SNOMED Code Problem Grief reaction F43.21 Active 91510 5009 Problem Essential hypertension I10 Active 16984583 Problem Unspecified cardiac dysrhythmia 427.9 Active 929592729 Problem Costochondritis 733.6 Active 6410 9004 Problem Type 2 diabetes mellitus without complications E11 .9 Active 00660013 Problem Diabetes 250.00 Active [id number] ALLERGIES No Information ENCOUNTERS Encounter Location Date Diagnosis [facility] [address] [facility] [id number] [address] [place] [address] Apr, [facility] [address] [facility] [id number] [address] [place] [address] Apr, Type 2 diabetes mellitus wit hout complications E11.9 [facility] [address] [facility] [id number] [address] [place] [address] Apr, Type 2 diabetes mellitus wit hout complications E11.9 ; Grief reaction F43.21 and Essential hypertension I10 [facility] [address] [facility] [id number] [address] [place] [address] Mar, Type 2 diabetes mellitus wit hout complications E11.9 [facility] [address] [facility] [id number] [address] [place] [address] Mar, Type 2 diabetes mellitus wit hout complications E11.9 [facility] [address] [facility] [id number] [address] [place] [address] Feb, [facility] [address] [facility] [id number] [address] [place] [address] Jan, [facility] [address] [id number] [address] [place] [address] Nov, Type 2 diabetes mellitus wit hout complications E11.9 [facility] [address] [id number] [address] [place] [address] Oct, [facility] [address] [id number] [address] [place] [address] Oct, Labia irritation N90.89 [facility] [address] [id number] [address] [place] [address] Sep, [facility] [address] [id number] [address] [place] [address] Sep, [facility] [address] [id number] [address] [place] [address] Sep, [facility] [address] [id number] [address] [place] [address] Aug, [facility] [address] [id number] [address] [place] [address] Jul, [facility] [address] [id number] [address] [place] [address] Jul, [facility] [address] [id number] [address] [place] [address] Mar, Type 2 diabetes mellitus wit hout complications E11.9 ; Acute pain of right knee M25.561 and Essential hypertension I10 [facility] [address] [id number] [address] [place] [address] Mar, [facility] [address] [id number] [address] [place] [address] Mar, Dysuria R30.0 [facility] [address] [id number] [address] [place] [address] December, [facility] [address] [id number] [address] [place] [address] Nov, [place] [address] [facility] [id number] [address] [place] [address] Nov, Dental examination Z01.20 [place] [id number] [facility] [id number] [address] [place] [address] Nov, Dental examination Z01.20 [place] [address] [facility] [id number] [address] [place] [address] Nov, Non-intractable vomiting wit h nausea, unspecified vomiting type R11.2 ; Arthralgia, unspecified joint M25.50 ; Fever, unspecified fever cause R50.9 ; Type 2 diabetes mellitus without complications E11.9 and Tooth pain K08.89 [place] [address] [place] [id number] [address] [place] [address] Nov, Type 2 diabetes mellitus wit hout complications E11.9 [place] [address] [place] [id number] [address] [place] [address] Nov, Type 2 diabetes mellitus wit hout complications E11.9 and Bronchitis J40 [place] [address] [place] [id number] [address] [place] [address] Oct, Type 2 diabetes mellitus wit hout complications E11.9 [place] [address] [place] [id number] [address] [place] [address] Jul, [place] [address] [place] [id number] [address] [place] [address] Jul, Dysuria R30.0 ; Hematuria R3 1.9 and Vaginal pain R10.2 [place] [address] [facility] [id number] [address] [place] [address] Jul, Dysuria R30.0 ; Vaginal disc harge N89.8 and Low back strain, initial encounter S39.012A [place] [address] [place] [id number] [address] [place] [address] Jun, Bacterial conjunctivitis of right eye H10.9 ; Sore throat J02.9 and Acute non-recurrent maxillary sinusitis J01.00 [facility] [address] [id number] [address] [place] [address] Jun, [facility] [address] [id number] [address] [place] [address] May, [facility] [address] [id number] [address] [place] [address] Apr, [facility] [address] [id number] [address] [place] [address] 14 Apr, 2016 [facility] [address] [id number] [address] [place] [address] Apr, [facility] [address] [id number] [address] [place] [address] Apr, Type 2 diabetes mellitus wit hout complications E11.9 [facility] [address] [id number] [address] [place] [address] Mar, [facility] [address] [id number] [address] [place] [address] Feb, Bronchitis J40 [facility] [address] [id number] [address] [place] [address] Feb, Bronchitis J40 [facility] [address] [id number] [address] [place] [address] Feb, Type 2 diabetes mellitus wit hout complications E11.9 [facility] [address] [id number] [address] [place] [address] Feb, [facility] [address] [id number] [address] [place] [address] Feb, [facility] [address] [id number] [address] [place] [address] Feb, Type 2 diabetes mellitus wit hout complications E11.9 and Dysuria R30.0 [facility] [address] [id number] [address] [place] [address] Jan, Type 2 diabetes mellitus wit hout complications E11.9 [facility] [id number] [place] [address] Jan, Type 2 diabetes mellitus wit hout complications E11.9 [facility] [address] [address] December, Type 2 diabetes mellitus wit hout complications E11.9 [facility] [address] [place] [id number] [address] [place] [address] Nov, Type 2 diabetes mellitus wit hout complications E11.9 [place] [address] [address] Oct, Type 2 diabetes mellitus wit hout complications E11.9 ; Fever R50.9 ; Myalgia M79.1 and Cough R05 [place] [address] [place] [id number] [address] [place] [address] 15 Sep, 2015 Dysuria R30.0 and Cystitis N 30.90 [place] [address] [place] [id number] [address] [place] [address] Sep, [place] [address] [place] [id number] [address] [place] [address] 04 Sep, 2015 [facility] [address] [place] [id number] [address] [place] [id number] Aug, Dental examination Z01.20 [place] [id number] [place] [address] Aug, Type 2 diabetes mellitus wit hout complications E11.9 [facility] [address] [place] [address] Jul, Dysfunction of left eustachi an tube H69.82 [facility] [id number] [place] [address] Jun, [facility] [address] [place] [id number] [address] [place] [address] Jun, Cellulitis L03.90 [facility] [address] [facility] [id number] [address] [place] [address] Jun, [facility] [address] [place] [id number] [address] [place] [address] Jun, [facility] [address] [place] [id number] [address] [place] [address] Jun, [facility] [address] [place] [id number] [address] [place] [address] May, Dermatofibroma of ankle, rig ht D23.71 [place] [address] [place] [id number] [place] [address] May, [facility] [address] [place] [id number] [place] [address] Apr, Diabetes 250.00 and 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 [place] [address] [place] [id number] [address] [place] [address] Apr, [facility] [address] [place] [id number] [address] [place] [address] Apr, [facility] [address] [place] [id number] [address] [place] [address] Apr, Diabetes 250.00 ; Influenza vaccine administered V04.81 and Allergic rhinitis 477.9 [place] [address] [place] [id number] [address] [place] [address] Mar, [facility] [address] [place] [id number] [address] [place] [address] Jan, [facility] [address] [place] [id number] [address] [place] [address] Jan, DM w/o complication type II 250.00 [facility] [address] [place] [id number] [address] [place] [address] December, DM w/o complication type II 250.00 ; Calcaneal spur 726.73 ; Vaginitis due to Amanda 112.1 and Onychomycosis 110.1 [facility] [address] [id number] [address] [place] [address] 30 Nov, 2014 Amanda infection of genital region 112.2 [facility] [address] [id number] [address] [place] [address] 14 Nov, 2014 [facility] [address] [id number] [address] [place] [address] 13 Nov, 2014 [facility] [address] [id number] [address] [place] [address] Oct, [facility] [address] [id number] [address] [place] [address] Oct, [facility] [address] [id number] [address] [place] [address] Sep, [facility] [address] [id number] [address] [place] [address] Sep, [facility] [address] [id number] [address] [place] [address] Jul, [facility] [address] [id number] [address] [place] [address] Jul, [facility] [address] [id number] [address] [place] [address] Jun, [facility] [address] [id number] [address] [place] [address] Jun, [facility] [address] [id number] [address] [place] [address] Jun, [facility] [address] [id number] [address] [place] [address] Jun, [facility] [address] [id number] [address] [place] [address] May, [facility] [address] [id number] [address] [place] [address] May, [facility] [address] [id number] [address] [place] [address], [place] [address] May, [facility] [address] [id number] [address] [place] [address], [place] [address] May, [facility] [address] [id number] [address] [place] [address], [place] [address] Apr, [facility] [address] [id number] [address] [place] [address], [place] [address] Apr, [facility] [address] [id number] [address] [place] [address], [place] [address] Apr, [facility] [address] [id number] [address] [place] [address], [place] [address] Apr, [facility] [address] [id number] [address] [place] [address], [place] [address] Mar, [facility] [address] [id number] [address] [place] [address], [place] [address] Mar, [facility] [address] [id number] [address] [place] [address], [place] [address] Mar, [facility] [address] [id number] [address] [place] [address], [place] [address] Mar, [facility] [address] [id number] [address] [place] [address], [place] [address] Mar, [facility] [address] [id number] [address] [place] [address], [place] [address] Mar, [facility] [address] [id number] [address] [place] [address], [place] [address] Mar, [facility] [address] [id number] [address] [place] [address], [place] [address] Mar, [facility] [address] [id number] [address] [place] [address], [place] [address] Mar, [facility] [address] [id number] [facility] [place] [address] Mar, [facility] [address] [id number] [facility] [place] [address] Mar, [facility] [address] [id number] [address] [place] [address], [place] [address] Mar, [facility] [address] [id number] [address] [place] [address], [place] [address] Feb, [facility] [address] [id number] [address] [place] [address], [place] [address] Feb, [facility] [address] [id number] [address] [place] [address], [place] [address] Jan, [facility] [address] [id number] [address] [place] [address], [place] [address] Jan, [facility] [address] [id number] [address] [place] [address], [place] [address] Jan, [facility] [address] [id number] [address] [place] [address], [place] [address] Jan, [facility] [address] [id number] [address] [place] [address], [place] [address] December, [facility] [address] [id number] [address] [place] [address], [place] [address] December, [facility] [address] [id number] [address] [place] [address], [place] [address] December, [facility] [address] [id number] [address] [place] [address], [place] [address] December, [facility] [address] [id number] [address] [place] [address], [place] [address] Nov, [facility] [address] [id number] [address] [place] [address], [place] [address] Nov, [facility] [address] [id number] [address] [place] [address], [place] [address] Nov, [facility] [address] [id number] [facility] [place] [address] Nov, [facility] [address] [id number] [address] [place] [address], [place] [address] Nov, [facility] [address] [id number] [address] [place] [address], [place] [address] Nov, [facility] [address] [id number] [address] [place] [address], [place] [address] Nov, [facility] [address] [id number] [address] [place] [address], [place] [address] Oct, [facility] [address] [id number] [address] [place] [address], [place] [address] Oct, [facility] [address] [id number] [address] [place] [address], [place] [address] Oct, [facility] [address] [id number] [address] [place] [address], [place] [address] Oct, [facility] [address] [id number] [address] [place] [address], [place] [address] Oct, [facility] [address] [id number] [address] [place] [address], [place] [address] Oct, [facility] [address] [id number] [address] [place] [address], [place] [address] Oct, [facility] [address] [id number] [address] [place] [address], [place] [address] Sep, [facility] [address] [id number] [address] [place] [address], [place] [address] Sep, [facility] [address] [id number] [address] [place] [address], [place] [address] Sep, [facility] [address] [id number] [address] [place] [address], [place] [address] Sep, [facility] [address] [id number] [address] [place] [address], [place] [address] 07 Aug, 2013 [facility] [address] [id number] [address] [place] [address], [place] [address] Aug, [facility] [address] [id number] [address] [place] [address], [place] [address] Aug, [facility] [place] [address] [id number] [address] [place] [address], [place] [address] Aug, [facility] [address] [id number] [address] [place] [address], [place] [address] Jul, [facility] [place] [address] [id number] [address] [place] [address], [place] [address] Jul, [facility] [address] [id number] [address] [place] [address], [place] [address] Apr, [facility] [place] [address] [id number] [address] [place] [address], [place] [address] Apr, [facility] [address] [id number] [address] [place] [address], [place] [address] Mar, [facility] [place] [address] [id number] [address] [place] [address], [place] [address] Mar, [facility] [address] [id number] [address] [place] [address], [place] [address] Mar, [facility] [address] [id number] [address] [place] [address], [place] [address] Mar, [facility] [address] [id number] [address] [place] [address], [place] [address] Mar, [facility] [address] [id number] [address] [place] [address], [place] [address] Mar, [facility] [address] [id number] [address] [place] [address], [place] [address] Mar, [facility] [address] [id number] [address] [place] [address], [place] [address] Mar, [facility] [place] [address] [id number] [address] [place] [address], [place] [address] Mar, [facility] [address] [id number] [address] [place] [address], [place] [address] Mar, [facility] [address] [id number] [address] [place] [address], [place] [address] Feb, [facility] [address] [id number] [address] [place] [address], [place] [address] Feb, [facility] [address] [id number] [address] [place] [address], [place] [address] Feb, [facility] [address] [id number] [address] [place] [address], [place] [address] Feb, [facility] [place] [address] [id number] [address] [place] [address], [place] [address] Jan, [facility] [address] [id number] [address] [place] [address], [place] [address] Nov, [facility] [place] [address] [id number] [address] [place] [address], [place] [address] Nov, [facility] [place] [address] [id number] [address] [place] [address], [place] [address] Nov, [facility] [place] [address] [id number] [address] [place] [address], [place] [address] Nov, [facility] [address] [id number] [address] [place] [address], [place] [address] Oct, [facility] [address] [id number] [address] [place] [address], [place] [address] Sep, [facility] [address] [id number] [address] [place] [address], [place] [address] Sep, [facility] [address] [id number] [address] [place] [address], [place] [address] Aug, [facility] [address] [id number] [address] [place] [address], [place] [address] Jul, [facility] [address] [id number] [address] [place] [address], [place] [address] Jul, [facility] [address] [id number] [address] [place] [address], [place] [address] May, [facility] [address] [id number] [address] [place] [address], [place] [address] May, [facility] [address] [id number] [address] [place] [address], [place] [address] May, [facility] [address] [id number] [address] [place] [address], [place] [address] May, [facility] [address] [id number] [address] [place] [address], [place] [address] Apr, [facility] [address] [id number] [address] [place] [address], [place] [address] Mar, [facility] [address] [id number] [address] [place] [address], [place] [address] Mar, [facility] [address] [id number] [address] [place] [address], [place] [address] Mar, [facility] [address] [id number] [address] [place] [address], [place] [address] Mar, [facility] [address] [id number] [address] [place] [address], [place] [address] Mar, [facility] [address] [id number] [address] [place] [address], [place] [address] Mar, [facility] [address] [id number] [address] [place] [address], [place] [address] Mar, [facility] [address] [id number] [address] [place] [address], [place] [address] Mar, [facility] [address] [id number] [address] [place] [address], [place] [address] Feb, [facility] [address] [id number] [address] [place] [address], [place] [address] 10 Feb, 2012 [facility] [address] [id number] [address] [place] [address], [place] [address] Jan, [facility] [address] [id number] [address] [place] [address], [place] [address] December, [facility] [address] [id number] [address] [place] [address], [place] [address] December, [facility] [address] [id number] [address] [place] [address], [place] [address] 23 Nov, 2011 [facility] [address] [id number] [address] [place] [address], [place] [address] Nov, [facility] [address] [id number] [address] [place] [address], [place] [address] 18 Nov, 2011 [facility] [address] [id number] [address] [place] [address], [place] [address] Nov, [facility] [address] [id number] [address] [place] [address], [place] [address] Oct, [facility] [address] [id number] [address] [place] [address], [place] [address] 29 Sep, 2011 [facility] [address] [id number] [address] [place] [address], [place] [address] Sep, [facility] [address] [id number] [address] [place] [address], [place] [address] Sep, [facility] [address] [id number] [address] [place] [address], [place] [address] Sep, [facility] [address] [id number] [address] [place] [address], [place] [address] Sep, [facility] [address] [id number] [address] [place] [address], [place] [address] Sep, [facility] [address] [id number] [address] [place] [address] 15 Sep, 2011 [facility] [address] [id number] [address] [place] [address], [place] [address] 15 Sep, 2011 [facility] [address] [id number] [address] [place] [address], [place] [address] 05 Aug, 2011 [facility] [address] [id number] [address] [place] [address], [place] [address] Jul, [facility] [address] [id number] [address] [place] [address], [place] [address] 14 Jul, 2011 [facility] [address] [id number] [address] [place] [address], [place] [address] Jul, [facility] [address] [id number] [address] [place] [address], [place] [address] Jun, [facility] [address] [id number] [address] [place] [address], [place] [address] Jul, [facility] [address] [id number] [address] [place] [address], [place] [address] Jul, [facility] [place] [address] [id number] [address] [place] [address], [place] [address] Jul, [facility] [place] [address] [id number] [address] [place] [address], [place] [address] Jul, [facility] [address] [id number] [address] [place] [address], [place] [address] Jul, [facility] [address] [id number] [address] [place] [address], [place] [address] May, [facility] [address] [id number] [address] [place] [address], [place] [address] May, [facility] [address] [id number] [address] [place] [address], [place] [address] May, [facility] [address] [id number] [address] [place] [address], [place] [address] 15 Apr, 2010 [facility] [address] [facility] [id number] [address] [place] [address] Jun, [facility] [address] [facility] [id number] [address] [place] [address] Jun, [facility] [address] [facility] [id number] [address] [place] [address] May, [facility] [address] [facility] [id number] [address] [place] [address] Jan, IMMUNIZATIONS No Known Immunizations SOCIAL HISTORY Never Assessed REASON FOR VISIT Lab (walk-in) PLAN OF CARE VITAL SIGNS MEDICATIONS Unknown Medications RESULTS No Results PROCEDURES Procedure Date Ordered Result Body Site GLYCATED HEMOGLOBIN TEST Apr 07, 2018 LIPID PANEL Apr 07, 2018 COMPREHEN METABOLIC PANEL Apr 07, 2018 INSTRUCTIONS MEDICATIONS ADMINISTERED No Known Medications [...]
--- OUTSIDE RECORDS SUMMARY | 2019-11-01 20:30 | XMS REPORT ---
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 Name Role Phone IRVIN RUIZ Unavailable PROBLEMS Type Condition ICD9-CM Code TWM60-NC Code Onset Dates Condition S tatus SNOMED Code Problem Grief reaction F43.21 Active 62275 5009 Problem Essential hypertension I10 Active 25095056 Problem Unspecified cardiac dysrhythmia 427.9 Active 602257368 Problem Costochondritis 733.6 Active 6410 9004 Problem Type 2 diabetes mellitus without complications E11 .9 Active 98222026 Problem Diabetes 250.00 Active 52896257 ALLERGIES Substance Reaction Event Type Date Status Shrimp (Diagnostic) anaphylaxis Drug Allergy Apr, Active Metformin HCl Black outs Drug Allergy Apr, Active Glucotrol XL headache Drug Allergy Apr, Active Doxycycline Hyclate nausea Drug Allergy Apr, Active ENCOUNTERS Encounter Location Date Diagnosis [place] [address] [address] Apr, [facility] [address] [place] [id number] [address] [place] [address] Apr, Type 2 diabetes mellitus wit hout complications E11.9 [facility] [address] [place] [id number] [address] [place] [address] Apr, Type 2 diabetes mellitus wit hout complications E11.9 ; Grief reaction F43.21 and Essential hypertension I10 [facility] [address] [place] [id number] [address] [place] [address] Mar, Type 2 diabetes mellitus wit hout complications E11.9 [facility] [address] [place] [id number] [address] [place] [address] Mar, Type 2 diabetes mellitus wit hout complications E11.9 [facility] [address] [id number] [address] [place] [phone] Feb, [facility] [address] [id number] [address] [place] [address] Jan, [facility] [address] [id number] [address] [place] [id number] Nov, Type 2 diabetes mellitus wit hout complications E11.9 [facility] [address] [id number] [address] [place] [address] Oct, [facility] [address] [id number] [address] [place] [address] Oct, Labia irritation N90.89 [facility] [address] [id number] [address] [place] [address] Sep, [facility] [address] [id number] [address] [place] [id number] Sep, [facility] [address] [id number] [address] [place] [address] Sep, [facility] [address] [id number] [address] [place] [address] Aug, [facility] [address] [id number] [address] [place] [phone] Jul, [facility] [address] [id number] [address] [place] [address] Jul, [facility] [address] [id number] [address] [place] [id number] Mar, Type 2 diabetes mellitus wit hout complications E11.9 ; Acute pain of right knee M25.561 and Essential hypertension I10 [facility] [address] [id number] [address] [place] [address] Mar, [facility] [address] [facility] [id number] [address] [place] [address] Mar, Dysuria R30.0 [place] [id number] [facility] [id number] [address] [place] [phone] December, [facility] [address] [facility] [id number] [address] [place] [address] Nov, [facility] [address] [facility] [id number] [address] [place] [address] Nov, Dental examination Z01.20 [place] [address] [address] [facility] [id number] [address] [place] [address] Nov, Dental examination Z01.20 [place] [address] [address] [facility] [id number] [address] [place] [address] Nov, Non-intractable vomiting wit h nausea, unspecified vomiting type R11.2 ; Arthralgia, unspecified joint M25.50 ; Fever, unspecified fever cause R50.9 ; Type 2 diabetes mellitus without complications E11.9 and Tooth pain K08.89 [place] [address] [place] [id number] [address] [place] [address] Nov, Type 2 diabetes mellitus wit hout complications E11.9 [place] [address] [place] [id number] [address] [place] [address] Nov, Type 2 diabetes mellitus wit hout complications E11.9 and Bronchitis J40 [place] [address] [place] [id number] [address] [place] [address] Oct, Type 2 diabetes mellitus wit hout complications E11.9 [place] [address] [place] [id number] [address] [place] [address] Jul, [place] [address] [facility] [id number] [address] [place] [address] Jul, Dysuria R30.0 ; Hematuria R3 1.9 and Vaginal pain R10.2 [place] [address] [address] [facility] [id number] [address] [place] [address] Jul, Dysuria R30.0 ; Vaginal disc harge N89.8 and Low back strain, initial encounter S39.012A [facility] [address] [id number] [address] [place] [phone] Jun, Bacterial conjunctivitis of right eye H10.9 ; Sore throat J02.9 and Acute non-recurrent maxillary sinusitis J01.00 [facility] [address] [id number] [address] [place] [phone] Jun, [facility] [address] [id number] [address] [place] [address] May, [facility] [address] [id number] [address] [place] [id number] Apr, [facility] [address] [id number] [address] [place] [address] Apr, [facility] [address] [id number] [address] [place] [phone] Apr, [facility] [address] [id number] [address] [place] [id number] Apr, Type 2 diabetes mellitus wit hout complications E11.9 [facility] [address] [id number] [address] [place] [phone] Mar, [facility] [address] [id number] [address] [place] [phone] Feb, Bronchitis J40 [facility] [address] [id number] [address] [place] [phone] Feb, Bronchitis J40 [facility] [address] [id number] [address] [place] [phone] Feb, Type 2 diabetes mellitus wit hout complications E11.9 [facility] [address] [id number] [address] [place] [phone] Feb, [facility] [address] [id number] [address] [place] [phone] Feb, [facility] [address] [id number] [address] [place] [address] Feb, Type 2 diabetes mellitus wit hout complications E11.9 and Dysuria R30.0 [facility] [address] [facility] [id number] [address] [place] [address] Jan, Type 2 diabetes mellitus wit hout complications E11.9 [facility] [address] [facility] [id number] [address] [place] [phone] 14 Jan, 2016 Type 2 diabetes mellitus wit hout complications E11.9 [facility] [address] [facility] [id number] [address] [place] [phone] December, Type 2 diabetes mellitus wit hout complications E11.9 [facility] [address] [facility] [id number] [address] [place] [phone] Nov, Type 2 diabetes mellitus wit hout complications E11.9 [facility] [address] [facility] [id number] [address] [place] [phone] Oct, Type 2 diabetes mellitus wit hout complications E11.9 ; Fever R50.9 ; Myalgia M79.1 and Cough R05 [facility] [address] [facility] [id number] [address] [place] [id number] 15 Sep, 2015 Dysuria R30.0 and Cystitis N 30.90 [facility] [address] [facility] [id number] [address] [place] [phone] 05 Sep, 2015 [facility] [address] [place] [id number] [address] [place] [id number] 04 Sep, 2015 [facility] [address] [id number] [address] [place] [id number] Aug, Dental examination Z01.20 [facility] [address] [facility] [id number] [address] [place] [address] Aug, Type 2 diabetes mellitus wit hout complications E11.9 [facility] [address] [facility] [id number] [address] [place] [phone] 07 Jul, 2015 Dysfunction of left eustachi an tube H69.82 [facility] [address] [facility] [id number] [address] [place] [id number] Jun, [facility] [address] [facility] [id number] [address] [place] [phone] Jun, Cellulitis L03.90 [facility] [address] [facility] [id number] [address] [place] [phone] Jun, [facility] [address] [place] [id number] [address] [place] [phone] Jun, [facility] [address] [place] [id number] [address] [place] [phone] Jun, [facility] [address] [place] [id number] [address] [place] [id number] May, Dermatofibroma of ankle, rig ht D23.71 [facility] [address] [place] [id number] [address] [place] [phone] May, [facility] [address] [place] [id number] [address] [place] [address] Apr, Diabetes 250.00 and 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 [facility] [address] [place] [id number] [address] [place] [phone] Apr, [facility] [address] [place] [id number] [address] [place] [phone] Apr, [facility] [address] [place] [id number] [address] [place] [address] Apr, Diabetes 250.00 ; Influenza vaccine administered V04.81 and Allergic rhinitis 477.9 [facility] [address] [place] [id number] [address] [place] [phone] Mar, [facility] [address] [place] [id number] [address] [place] [phone] Jan, [facility] [address] [place] [id number] [address] [place] [address] Jan, DM w/o complication type II 250.00 [facility] [address] [id number] [address] [place] [phone] December, DM w/o complication type II 250.00 ; Calcaneal spur 726.73 ; Vaginitis due to Amanda 112.1 and Onychomycosis 110.1 [facility] [address] [id number] [address] [place] [phone] 30 Nov, 2014 Amanda infection of genital region 112.2 [facility] [address] [id number] [address] [place] [phone] 14 Nov, 2014 [facility] [address] [id number] [address] [place] [phone] Nov, [facility] [address] [id number] [address] [place] [phone] Oct, [facility] [address] [id number] [address] [place] [phone] Oct, [facility] [address] [id number] [address] [place] [phone] Sep, [facility] [address] [id number] [address] [place] [phone] Sep, [facility] [address] [id number] [address] [place] [phone] Jul, [facility] [address] [id number] [address] [place] [phone] Jul, [facility] [address] [id number] [address] [place] [phone] Jun, [facility] [address] [id number] [address] [place] [phone] Jun, [facility] [address] [id number] [address] [place] [phone] Jun, [facility] [address] [id number] [address] [place] [phone] Jun, [facility] [address] [id number] [address] [place] [address], [place] [address] May, [facility] [address] [id number] [address] [place] [address], [place] [address] May, [facility] [address] [id number] [address] [place] [address], [place] [address] May, [facility] [address] [id number] [address] [place] [address], [place] [address] May, [facility] [address] [id number] [address] [place] [address], [place] [address] Apr, [facility] [address] [id number] [address] [place] [address], [place] [address] Apr, [facility] [address] [id number] [address] [place] [address], [place] [address] Apr, [facility] [address] [id number] [address] [place] [address], [place] [address] Apr, [facility] [address] [id number] [address] [place] [address], [place] [address] Mar, [facility] [address] [id number] [address] [place] [address], [place] [address] Mar, [facility] [address] [id number] [address] [place] [address], [place] [address] Mar, [facility] [address] [id number] [address] [place] [address], [place] [address] Mar, [facility] [address] [id number] [address] [place] [address], [place] [address] Mar, [facility] [address] [id number] [address] [place] [address], [place] [address] Mar, [facility] [address] [id number] [address] [place] [address], [place] [address] Mar, [facility] [address] [id number] [address] [place] [address], [place] [address] Mar, [facility] [address] [id number] [address] [place] [address], [place] [address] Mar, [facility] [address] [id number] [address] [place] [address], [place] [address] Mar, [facility] [address] [id number] [address] [place] [address], [place] [address] Mar, [facility] [address] [id number] [address] [place] [address], [place] [address] Mar, [facility] [address] [id number] [address] [place] [address], [place] [address] Feb, [facility] [address] [id number] [address] [place] [address], [place] [address] Feb, [facility] [address] [id number] [address] [place] [address], [place] [address] Jan, [facility] [address] [id number] [address] [place] [address], [place] [address] Jan, [facility] [address] [id number] [address] [place] [address], [place] [address] Jan, [facility] [address] [id number] [address] [place] [address], [place] [address] Jan, [facility] [address] [id number] [address] [place] [address], [place] [address] December, [facility] [address] [id number] [address] [place] [address], [place] [address] December, [facility] [address] [id number] [address] [place] [address], [place] [address] December, [facility] [address] [id number] [address] [place] [address], [place] [address] December, [facility] [address] [id number] [address] [place] [address], [place] [address] Nov, [facility] [address] [id number] [facility] [place] [address] 14 Nov, 2013 [facility] [address] [id number] [address] [place] [address], [place] [address] 11 Nov, 2013 [facility] [address] [id number] [address] [place] [address], [place] [address] 03 Nov, 2013 [facility] [address] [id number] [address] [place] [address], [place] [address] Nov, [facility] [address] [id number] [address] [place] [address], [place] [address] Nov, [facility] [address] [id number] [address] [place] [address], [place] [address] Nov, [facility] [address] [id number] [address] [place] [address], [place] [address] Oct, [facility] [address] [id number] [address] [place] [address], [place] [address] Oct, [facility] [address] [id number] [address] [place] [address], [place] [address] Oct, [facility] [address] [id number] [address] [place] [address], [place] [address] Oct, [facility] [address] [id number] [address] [place] [address], [place] [address] Oct, [facility] [address] [id number] [address] [place] [address], [place] [address] Oct, [facility] [address] [id number] [address] [place] [address], [place] [address] Oct, [facility] [address] [id number] [address] [place] [address], [place] [address] 07 Sep, 2013 [facility] [address] [id number] [address] [place] [address], [place] [address] 07 Sep, 2013 [facility] [address] [id number] [address] [place] [address], [place] [address] Sep, [facility] [address] [id number] [address] [place] [address], [place] [address] Sep, [facility] [address] [id number] [address] [place] [address], [place] [address] Aug, [facility] [address] [id number] [address] [place] [address], [place] [address] Aug, [facility] [address] [id number] [address] [place] [address], [place] [address] Aug, [facility] [address] [id number] [address] [place] [address], [place] [address] Aug, [facility] [address] [id number] [address] [place] [address], [place] [address] Jul, [facility] [address] [id number] [address] [place] [address], [place] [address] Jul, [facility] [address] [id number] [address] [place] [address], [place] [address] Apr, [facility] [address] [id number] [address] [place] [address], [place] [address] Apr, [facility] [address] [id number] [address] [place] [address], [place] [address] Mar, [facility] [address] [id number] [address] [place] [address], [place] [address] Mar, [facility] [address] [id number] [address] [place] [address], [place] [address] Mar, [facility] [address] [id number] [address] [place] [address], [place] [address] Mar, [facility] [address] [id number] [address] [place] [address], [place] [address] Mar, [facility] [address] [id number] [address] [place] [address], [place] [address] Mar, [facility] [address] [id number] [address] [place] [address], [place] [address] Mar, [facility] [address] [id number] [address] [place] [address], [place] [address] Mar, [facility] [address] [id number] [address] [place] [address], [place] [address] Mar, [facility] [address] [id number] [address] [place] [address], [place] [address] Mar, [facility] [address] [id number] [address] [place] [address], [place] [address] Feb, [facility] [address] [id number] [address] [place] [address], [place] [address] Feb, [facility] [address] [id number] [address] [place] [address], [place] [address] Feb, [facility] [address] [id number] [address] [place] [address], [place] [address] Feb, [facility] [address] [id number] [address] [place] [address], [place] [address] Jan, [facility] [address] [id number] [address] [place] [address], [place] [address] 25 Nov, 2012 [facility] [address] [id number] [address] [place] [address], [place] [address] 16 Nov, 2012 [facility] [address] [id number] [address] [place] [address], [place] [address] 15 Nov, 2012 [facility] [address] [id number] [address] [place] [address], [place] [address] 11 Nov, 2012 [facility] [address] [id number] [address] [place] [address], [place] [address] Oct, [facility] [address] [id number] [address] [place] [address], [place] [address] 13 Sep, 2012 [facility] [address] [id number] [address] [place] [address], [place] [address] Sep, [facility] [address] [id number] [address] [place] [address], [place] [address] Aug, [facility] [address] [id number] [address] [place] [address], [place] [address] Jul, [facility] [address] [id number] [address] [place] [address], [place] [address] Jul, [facility] [address] [id number] [address] [place] [address], [place] [address] May, [facility] [address] [id number] [address] [place] [address], [place] [address] May, [facility] [address] [id number] [address] [place] [address], [place] [address] May, [facility] [address] [id number] [address] [place] [address], [place] [address] May, [facility] [address] [id number] [address] [place] [address], [place] [address] Apr, [facility] [address] [id number] [address] [place] [address], [place] [address] Mar, [facility] [address] [id number] [address] [place] [address], [place] [address] Mar, [facility] [address] [id number] [address] [place] [address], [place] [address] Mar, [facility] [address] [id number] [address] [place] [address], [place] [address] Mar, [facility] [address] [id number] [address] [place] [address], [place] [address] Mar, [facility] [address] [id number] [address] [place] [address], [place] [address] Mar, [facility] [address] [id number] [address] [place] [address], [place] [address] Mar, [facility] [address] [id number] [address] [place] [address] [place] [address] Mar, [facility] [address] [id number] [address] [place] [address], [place] [address] Feb, [facility] [address] [id number] [address] [place] [address], [place] [address] Feb, [facility] [address] [id number] [address] [place] [address], [place] [address] Jan, [facility] [address] [id number] [address] [place] [address], [place] [address] December, [facility] [address] [id number] [address] [place] [address], [place] [address] December, [facility] [address] [id number] [address] [place] [address], [place] [address] Nov, [facility] [address] [id number] [address] [place] [address], [place] [address] Nov, [facility] [address] [id number] [address] [place] [address], [place] [address] Nov, [facility] [address] [id number] [address] [place] [address], [place] [address] Nov, [facility] [address] [id number] [address] [place] [address], [place] [address] Oct, [facility] [address] [id number] [address] [place] [address], [place] [address] Sep, [facility] [address] [id number] [address] [place] [address], [place] [address] Sep, [facility] [address] [id number] [address] [place] [address], [place] [address] Sep, [facility] [address] [id number] [address] [place] [address], [place] [address] Sep, [facility] [address] [id number] [address] [place] [address], [place] [address] 16 Sep, 2011 [facility] [address] [id number] [address] [place] [address], [place] [address] 16 Sep, 2011 [facility] [address] [id number] [address] [place] [address], [place] [address] 15 Sep, 2011 [facility] [address] [id number] [address] [place] [address], [place] [address] 15 Sep, 2011 [facility] [address] [id number] [address] [place] [address], [place] [address] Aug, [facility] [address] [id number] [address] [place] [address], [place] [address] Jul, [facility] [address] [id number] [address] [place] [address], [place] [address] Jul, [facility] [address] [id number] [address] [place] [address], [place] [address] Jul, [facility] [address] [id number] [address] [place] [address], [place] [address] Jun, [facility] [address] [id number] [address] [place] [address], [place] [address] Jul, [facility] [address] [id number] [address] [place] [address], [place] [address] Jul, [facility] [address] [id number] [address] [place] [address], [place] [address] Jul, [facility] [address] [id number] [address] [place] [address], [place] [address] Jul, [facility] [address] [id number] [address] [place] [address], [place] [address] Jul, [facility] [address] [id number] [address] [place] [address], [place] [address] May, [facility] [address] [id number] [address] [place] [address], [place] [address] May, [facility] [address] [id number] [address] [place] [phone] May, [facility] [address] [facility] [id number] [address] [place] [phone] Apr, [facility] [address] [facility] [id number] [address] [place] [id number] Jun, [facility] [address] [facility] [id number] [address] [place] [address] Jun, [facility] [address] [facility] [id number] [address] [place] [phone] May, [facility] [address] [facility] [id number] [address] [place] [phone] Jan, IMMUNIZATIONS No Known Immunizations SOCIAL HISTORY Never Assessed REASON FOR VISIT Diabetes, pt has been getting random hives that only last about an hour or two .WALTER Bowen PLAN OF CARE Activity Details Follow Up 3 Months Reason:DM VITAL SIGNS Height 63 in 2018-04-22 Weight 184.2 lbs 2018-04-22 Temperature 97.8 degrees Fahrenheit 2018-04-22 Heart Rate 82 bpm 2018-04-22 Respiratory Rate 18 2018-04-22 BMI 32.63 kg/m2 2018-04-22 Blood pressure systolic 142 mmHg 2018-04-22 Blood pressure diastolic 82 mmHg 2018-04-22 MEDICATIONS Medication Instructions Dosage Frequency Start Date End Date Duration S tatus Blood Glucose Monitor System w/Device Contour Next 3 times a day test 3 times per day 8h Sep, Active Januvia 100 mg Orally Once a day 1 tablet 24h 90 day s Active Blood Glucose Test Strip Contour Next 3 times a day test 3 times pe r day 8h Sep, Active Trulicity 1.5 MG/0.5ML Subcutaneous once weekly 0.5ml Active GlipiZIDE ER 10 mg Orally 2 times a day 1 tablet 12h 90 days Active Atenolol 50 mg Orally Once a day 1 tablet 24h 90 day s Active Acyclovir 400 mg orally 3 times a day one tab 8h Oct, 10 days Active RESULTS Name Result Date Reference Range A1C (IN HOUSE) 2018-04-22 A1C IN HOUSE 7.4 4.3 - 5.6 % Previous A1c 7.6 Lot [id number] Exp date 10/2019 MICROALBUMIN, URINE (IN HOUSE) 2018-04-22 MICROALBUMIN normal Lot # [id number] Exp date 04/10/2019 Clarity clear Color yelllow ALB 10 CRE 300 A:C (IN HOUSE) <30 Control Control Lot # Exp date PROCEDURES Procedure Date Ordered Result Body Site GLYCATED HEMOGLOBIN TEST Apr 22, 2018 MICROALBUMIN, SEMIQUANT Apr 22, 2018 INSTRUCTIONS MEDICATIONS ADMINISTERED No Known Medications [...]
--- OUTSIDE RECORDS SUMMARY | 2019-11-01 20:31 | XMS REPORT ---
Author Author Nyasia RUIZ [facility] Address [address] [place] [address] Care Team Providers Care Recreational Sports Director Name Role Phone IRVIN RUIZ Unavailable PROBLEMS Type Condition ICD9-CM Code [id number] Code Onset Dates Condition S tatus SNOMED Code Problem Type 2 diabetes mellitus without complications E11 .9 Active 97587998 Problem Diabetes 250.00 Active 95553758 Problem Unspecified cardiac dysrhythmia 427.9 Active [id number] Problem Costochondritis 733.6 Active 6410 9004 ALLERGIES Unknown Allergies SOCIAL HISTORY No smoking Hx information available PLAN OF CARE VITAL SIGNS MEDICATIONS Medication Instructions Dosage Frequency Start Date End Date Duration S tatus Atenolol 50 MG Orally Once a day 1 tablet 24h Active RESULTS No Results PROCEDURES No Known procedures IMMUNIZATIONS No Known Immunizations
--- OUTSIDE RECORDS SUMMARY | 2019-11-01 20:31 | XMS REPORT ---
Author Author Nyasia RUIZ [facility] Address [address] [place] [address] Care Team Providers Care Forwarder Operator Name Role Phone IRVIN RUIZ Unavailable PROBLEMS Type Condition ICD9-CM Code QAT05-RA Code Onset Dates Condition S tatus SNOMED Code Problem Essential hypertension I10 Active 73320472 Problem Type 2 diabetes mellitus without complications E11 .9 Active 71075977 Problem Costochondritis 733.6 Active 6410 9004 Problem Diabetes 250.00 Active 19824152 Problem Unspecified cardiac dysrhythmia 427.9 Active [id number] ALLERGIES No Information ENCOUNTERS Encounter Location Date Diagnosis [facility] [address] [facility] [id number] [address] [place] [address] Mar, [facility] [address] [facility] [id number] [address] [place] [address] Feb, [facility] [address] [facility] [id number] [address] [place] [address] Jan, [facility] [address] [facility] [id number] [address] [place] [address] Nov, Type 2 diabetes mellitus wit hout complications E11.9 [facility] [address] [facility] [id number] [address] [place] [address] Oct, [facility] [address] [facility] [id number] [address] [place] [address] Oct, Labia irritation N90.89 [facility] [address] [facility] [id number] [address] [place] [address] Sep, [facility] [address] [facility] [id number] [address] [place] [address] Sep, [facility] [address] [id number] [address] [place] [address] Sep, [facility] [address] [facility] [id number] [address] [place] [address] Aug, [facility] [address] [facility] [id number] [address] [place] [address] Jul, [facility] [address] [facility] [id number] [address] [place] [address] Jul, [facility] [address] [id number] [address] [place] [address] Mar, Type 2 diabetes mellitus wit hout complications E11.9 ; Acute pain of right knee M25.561 and Essential hypertension I10 [facility] [address] [place] [id number] [address] [place] [address] Mar, [facility] [address] [place] [id number] [place] [address] Mar, Dysuria R30.0 [facility] [address] [facility] [id number] [address] [place] [address] December, [facility] [address] [facility] [id number] [address] [place] [address] Nov, [facility] [address] [place] [address] [id number] [address] [place] [address] Nov, Dental examination Z01.20 [facility] [address] [facility] [id number] [address] [place] [address] Nov, Dental examination Z01.20 [facility] [address] [facility] [id number] [address] [place] [address] Nov, Non-intractable vomiting wit h nausea, unspecified vomiting type R11.2 ; Arthralgia, unspecified joint M25.50 ; Fever, unspecified fever cause R50.9 ; Type 2 diabetes mellitus without complications E11.9 and Tooth pain K08.89 [facility] [address] [facility] [id number] [address] [place] [address] Nov, Type 2 diabetes mellitus wit hout complications E11.9 [facility] [address] [id number] [address] [place] [address] Nov, Type 2 diabetes mellitus wit hout complications E11.9 and Bronchitis J40 [facility] [address] [id number] [address] [place] [address] Oct, Type 2 diabetes mellitus wit hout complications E11.9 [facility] [address] [id number] [address] [place] [address] Jul, [facility] [address] [id number] [address] [place] [address] Jul, Dysuria R30.0 ; Hematuria R3 1.9 and Vaginal pain R10.2 [facility] [address] [id number] [address] [place] [address] Jul, Dysuria R30.0 ; Vaginal disc harge N89.8 and Low back strain, initial encounter S39.012A [facility] [address] [id number] [address] [place] [address] Jun, Bacterial conjunctivitis of right eye H10.9 ; Sore throat J02.9 and Acute non-recurrent maxillary sinusitis J01.00 [facility] [address] [id number] [address] [place] [address] Jun, [facility] [address] [id number] [address] [place] [address] May, [facility] [address] [id number] [address] [place] [address] Apr, [facility] [address] [id number] [address] [place] [address] 14 Apr, 2016 [facility] [address] [id number] [address] [place] [address] 12 Apr, 2016 [facility] [address] [id number] [address] [place] [address] Apr, Type 2 diabetes mellitus wit hout complications E11.9 [facility] [address] [id number] [address] [place] [address] Mar, [facility] [address] [id number] [address] [place] [address] Feb, Bronchitis J40 [facility] [address] [id number] [address] [place] [address] Feb, Bronchitis J40 [facility] [address] [id number] [address] [place] [address] Feb, Type 2 diabetes mellitus wit hout complications E11.9 [facility] [address] [facility] [id number] [address] [place] [address] Feb, [facility] [address] [facility] [id number] [address] [place] [address] Feb, [facility] [address] [facility] [id number] [address] [place] [address] Feb, Type 2 diabetes mellitus wit hout complications E11.9 and Dysuria R30.0 [facility] [address] [facility] [id number] [address] [place] [address] Jan, Type 2 diabetes mellitus wit hout complications E11.9 [facility] [address] [facility] [id number] [address] [place] [address] Jan, Type 2 diabetes mellitus wit hout complications E11.9 [facility] [address] [id number] [address] [place] [address] December, Type 2 diabetes mellitus wit hout complications E11.9 [facility] [address] [facility] [id number] [address] [place] [address] Nov, Type 2 diabetes mellitus wit hout complications E11.9 [facility] [address] [facility] [id number] [address] [place] [address] Oct, Type 2 diabetes mellitus wit hout complications E11.9 ; Fever R50.9 ; Myalgia M79.1 and Cough R05 [facility] [address] [place] [id number] [address] [place] [address] Sep, Dysuria R30.0 and Cystitis N 30.90 [facility] [address] [place] [id number] [address] [place] [address] Sep, [facility] [address] [address] Sep, [facility] [address] [place] [id number] [address] [place] [id number] Aug, Dental examination Z01.20 [place] [address] [address] Aug, Type 2 diabetes mellitus wit hout complications E11.9 [place] [address] [phone] Jul, Dysfunction of left eustachi an tube H69.82 [facility] [address] [address] Jun, [facility] [address] [address] Jun, Cellulitis L03.90 [facility] [address] [place] [id number] [address] [place] [address] Jun, [facility] [address] [place] [id number] [address] [place] [address] Jun, [facility] [address] [place] [id number] [address] [place] [address] Jun, [facility] [address] [address] May, Dermatofibroma of ankle, rig ht D23.71 [facility] [address] [place] [id number] [address] [place] [address] May, [facility] [id number] [place] [address] 29 Apr, 2015 Diabetes 250.00 and 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 [facility] [address] [facility] [id number] [address] [place] [phone] 22 Apr, 2015 [facility] [address] [facility] [id number] [address] [place] [address] Apr, [facility] [address] [facility] [id number] [address] [place] [address] 15 Apr, 2015 Diabetes 250.00 ; Influenza vaccine administered V04.81 and Allergic rhinitis 477.9 [facility] [address] [facility] [id number] [address] [place] [address] Mar, [facility] [address] [facility] [id number] [address] [place] [address] Jan, [facility] [address] [place] [id number] [address] [place] [address] Jan, DM w/o complication type II 250.00 [facility] [address] [facility] [id number] [address] [place] [address] December, DM w/o complication type II 250.00 ; Calcaneal spur 726.73 ; Vaginitis due to Amanda 112.1 and Onychomycosis 110.1 [place] [address] [facility] [id number] [address] [place] [address] 30 Nov, 2014 Amanda infection of genital region 112.2 [facility] [address] [facility] [id number] [address] [place] [address] 14 Nov, 2014 [facility] [address] [facility] [id number] [address] [place] [phone] Nov, [facility] [address] [facility] [id number] [address] [place] [address] Oct, [facility] [address] [facility] [id number] [address] [place] [phone] Oct, [facility] [address] [id number] [address] [place] [address], [place] [address] Sep, [facility] [address] [id number] [address] [place] [address], [place] [address] Sep, [facility] [address] [id number] [address] [place] [address], [place] [address] Jul, [facility] [address] [id number] [address] [place] [address], [place] [address] Jul, [facility] [address] [id number] [address] [place] [address], [place] [address] Jun, [facility] [address] [id number] [address] [place] [address], [place] [address] Jun, [facility] [address] [id number] [address] [place] [address], [place] [address] Jun, [facility] [address] [id number] [address] [place] [address], [place] [address] Jun, [facility] [address] [id number] [address] [place] [address], [place] [address] May, [facility] [address] [id number] [address] [place] [address], [place] [address] May, [facility] [address] [id number] [address] [place] [address], [place] [address] May, [facility] [address] [id number] [address] [place] [address], [place] [address] May, [facility] [address] [id number] [address] [place] [address], [place] [address] Apr, [facility] [address] [id number] [address] [place] [address], [place] [address] Apr, [facility] [address] [id number] [address] [place] [address], [place] [address] Apr, [facility] [address] [id number] [address] [place] [address], [place] [address] Apr, [facility] [address] [id number] [facility] [address] Mar, [facility] [address] [id number] [address] [place] [address], [place] [address] Mar, [facility] [address] [id number] [address] [place] [address], [place] [address] Mar, [facility] [address] [id number] [address] [place] [address], [place] [address] Mar, [facility] [address] [id number] [address] [place] [address], [place] [address] Mar, [facility] [address] [id number] [address] [place] [address], [place] [address] Mar, [facility] [address] [id number] [address] [place] [address], [place] [address] Mar, [facility] [address] [id number] [address] [place] [address], [place] [address] Mar, [facility] [address] [id number] [address] [place] [address], [place] [address] Mar, [facility] [address] [id number] [address] [place] [address], [place] [address] Mar, [facility] [address] [id number] [address] [place] [address], [place] [address] Mar, [facility] [address] [id number] [address] [place] [address], [place] [address] Mar, [facility] [address] [id number] [address] [place] [address], [place] [address] Feb, [facility] [address] [id number] [address] [place] [address], [place] [address] Feb, [facility] [address] [id number] [address] [place] [address], [place] [address] Jan, [facility] [address] [id number] [address] [place] [address], [place] [address] Jan, [facility] [address] [id number] [address] [place] [address], [place] [address] Jan, [facility] [address] [id number] [address] [place] [address], [place] [address] Jan, [facility] [address] [id number] [address] [place] [address], [place] [address] December, [facility] [address] [id number] [address] [place] [address], [place] [address] December, [facility] [address] [id number] [address] [place] [address], [place] [address] December, [facility] [address] [id number] [address] [place] [address], [place] [address] December, [facility] [address] [id number] [address] [place] [address], [place] [address] Nov, [facility] [address] [id number] [address] [place] [address], [place] [address] Nov, [facility] [address] [id number] [address] [place] [address], [place] [address] Nov, [facility] [address] [id number] [address] [place] [address], [place] [address] Nov, [facility] [address] [id number] [address] [place] [address], [place] [address] Nov, [facility] [address] [id number] [address] [place] [address], [place] [address] Nov, [facility] [address] [id number] [address] [place] [address], [place] [address] Nov, [facility] [address] [id number] [address] [place] [address], [place] [address] Oct, [facility] [address] [id number] [address] [place] [address], [place] [address] Oct, [facility] [address] [id number] [address] [place] [address], [place] [address] 28 Oct, 2013 [facility] [address] [id number] [address] [place] [address], [place] [address] 13 Oct, 2013 [facility] [address] [id number] [address] [place] [address], [place] [address] Oct, [facility] [address] [id number] [address] [place] [address], [place] [address] Oct, [facility] [address] [id number] [address] [place] [address], [place] [address] Oct, [facility] [address] [id number] [address] [place] [address], [place] [address] 07 Sep, 2013 [facility] [address] [id number] [address] [place] [address], [place] [address] Sep, [facility] [address] [id number] [address] [place] [address], [place] [address] Sep, [facility] [address] [id number] [address] [place] [address], [place] [address] Sep, [facility] [address] [id number] [address] [place] [address], [place] [address] Aug, [facility] [address] [id number] [address] [place] [address], [place] [address] Aug, [facility] [address] [id number] [address] [place] [address], [place] [address] Aug, [facility] [address] [id number] [address] [place] [address], [place] [address] Aug, [facility] [address] [id number] [address] [place] [address], [place] [address] Jul, [facility] [address] [id number] [address] [place] [address], [place] [address] Jul, [facility] [address] [id number] [address] [place] [address], [place] [address] 04 Apr, 2013 [facility] [address] [id number] [address] [place] [address], [place] [address] Apr, [facility] [address] [id number] [address] [place] [address], [place] [address] Mar, [facility] [address] [id number] [address] [place] [address], [place] [address] Mar, [facility] [address] [id number] [address] [place] [address], [place] [address] Mar, [facility] [address] [id number] [address] [place] [address], [place] [address] Mar, [facility] [address] [id number] [address] [place] [address], [place] [address] Mar, [facility] [address] [id number] [address] [place] [address], [place] [address] Mar, [facility] [address] [id number] [address] [place] [address], [place] [address] Mar, [facility] [address] [id number] [address] [place] [address], [place] [address] Mar, [facility] [address] [id number] [address] [place] [address], [place] [address] Mar, [facility] [address] [id number] [address] [place] [address], [place] [address] Mar, [facility] [address] [id number] [address] [place] [address], [place] [address] Feb, [facility] [address] [id number] [address] [place] [address], [place] [address] Feb, [facility] [address] [id number] [address] [place] [address], [place] [address] Feb, [facility] [address] [id number] [address] [place] [address], [place] [address] Feb, [facility] [address] [id number] [address] [place] [address], [place] [address] Jan, [facility] [address] [id number] [address] [place] [address], [place] [address] 25 Nov, 2012 [facility] [address] [id number] [address] [place] [address], [place] [address] 16 Nov, 2012 [facility] [address] [id number] [address] [place] [address], [place] [address] 15 Nov, 2012 [facility] [address] [id number] [address] [place] [address], [place] [address] Nov, [facility] [address] [id number] [address] [place] [address], [place] [address] Oct, [facility] [address] [id number] [address] [place] [address], [place] [address] Sep, [facility] [address] [id number] [address] [place] [address], [place] [address] Sep, [facility] [address] [id number] [address] [place] [address], [place] [address] Aug, [facility] [address] [id number] [address] [place] [address], [place] [address] Jul, [facility] [address] [id number] [address] [place] [address], [place] [address] Jul, [facility] [address] [id number] [address] [place] [address], [place] [address] May, [facility] [address] [id number] [address] [place] [address], [place] [address] May, [facility] [address] [id number] [address] [place] [address], [place] [address] May, [facility] [address] [id number] [address] [place] [address], [place] [address] May, [facility] [address] [id number] [address] [place] [address], [place] [address] Apr, [facility] [address] [id number] [address] [place] [address], [place] [address] Mar, [facility] [address] [id number] [address] [place] [address], [place] [address] Mar, [facility] [address] [id number] [address] [place] [address], [place] [address] Mar, [facility] [address] [id number] [address] [place] [address], [place] [address] Mar, [facility] [address] [id number] [address] [place] [address], [place] [address] Mar, [facility] [address] [id number] [address] [place] [address], [place] [address] Mar, [facility] [address] [id number] [address] [place] [address], [place] [address] Mar, [facility] [address] [id number] [address] [place] [address], [place] [address] Mar, [facility] [address] [id number] [address] [place] [address], [place] [address] Feb, [facility] [address] [id number] [address] [place] [address], [place] [address] Feb, [facility] [address] [id number] [address] [place] [address], [place] [address] Jan, [facility] [address] [id number] [address] [place] [address], [place] [address] December, [facility] [address] [id number] [address] [place] [address], [place] [address] December, [facility] [address] [id number] [address] [place] [address], [place] [address] Nov, [facility] [address] [id number] [address] [place] [address], [place] [address] Nov, [facility] [address] [id number] [address] [place] [address], [place] [address] 18 Nov, 2011 [facility] [address] [id number] [address] [place] [address], [place] [address] 10 Nov, 2011 [facility] [address] [id number] [address] [place] [address], [place] [address] 08 Oct, 2011 [facility] [address] [id number] [address] [place] [address], [place] [address] 29 Sep, 2011 [facility] [address] [id number] [address] [place] [address], [place] [address] 21 Sep, 2011 [facility] [address] [id number] [address] [place] [address], [place] [address] Sep, [facility] [address] [id number] [address] [place] [address], [place] [address] 17 Sep, 2011 [facility] [address] [id number] [address] [place] [address], [place] [address] 16 Sep, 2011 [facility] [address] [id number] [address] [place] [address], [place] [address] 16 Sep, 2011 [facility] [address] [id number] [address] [place] [address], [place] [address] 15 Sep, 2011 [facility] [address] [id number] [address] [place] [address], [place] [address] 15 Sep, 2011 [facility] [address] [address] [id number] [address] [place] [address], [place] [address] Aug, [facility] [address] [id number] [address] [place] [address], [place] [phone] Jul, [facility] [address] [id number] [address] [place] [address], [place] [phone] Jul, [facility] [address] [id number] [address] [place] [address], [place] [address] Jul, [facility] [address] [id number] [address] [place] [phone] Jun, [facility] [address] [id number] [address] [place] [phone] Jul, [facility] [address] [id number] [address] [place] [phone] Jul, [facility] [address] [id number] [address] [place] [phone] Jul, [facility] [address] [id number] [address] [place] [phone] Jul, [facility] [address] [id number] [address] [place] [phone] Jul, [facility] [address] [id number] [address] [place] [phone] May, [facility] [address] [id number] [address] [place] [phone] May, [facility] [address] [id number] [address] [place] [phone] May, [facility] [address] [id number] [address] [place] [phone] Apr, [facility] [address] [id number] [address] [place] [phone] Jun, [facility] [address] [id number] [address] [place] [phone] Jun, [facility] [address] [id number] [address] [place] [phone] May, [facility] [address] [id number] [address] [place] [phone] Jan, IMMUNIZATIONS No Known Immunizations SOCIAL HISTORY Never Assessed REASON FOR VISIT Medication request PLAN OF CARE VITAL SIGNS MEDICATIONS Unknown [...]
--- OUTSIDE RECORDS SUMMARY | 2019-11-01 20:31 | XMS REPORT ---
Author Author Nyasia RUIZ [facility] eClinicalWorks Address Unknown Phone Unavailable Care Team Providers Care Supervisor Wound Name Role Phone IRVIN RUIZ CP Unavailable Allergies, Adverse Reactions, Alerts Substance Reaction Event Type Metformin HCl Info Not Available Drug Allergy Glucotrol XL Info Not Available Drug Allergy Doxycycline Hyclate Info Not Available Drug Allergy Problems Problem Type Condition Code Onset Dates Condition Statu s Problem Diabetes 250.00 Active Problem Unspecified cardiac dysrhythmia 427.9 Active Problem Type 2 diabetes mellitus without complications E11.9 Active Problem Costochondritis 733.6 Active Assessment Type 2 diabetes mellitus without complications E11.9 Active Medications Medication Code System Code Instructions Start Date End Date Status Dosage Atenolol [facility] [address]-12 50 MG please voucher TAKE ONE TABLET BY MOUTH DAILY Actos [facility] [address]-82 30 MG Orally Once a day samples Apr 25 015 1 tablet GlipiZIDE ER [facility] [address]-27 5 MG Orally 2 times a day please vouc her TAKE ONE TABLET BY MOUTH TWICE DAILY Januvia [facility] [address]-44 100 MG Once a day please voucher Apr 21, 2014 1 Tablet by Oral route 1 time per day Procedures Procedure Coding System Code Date LIPID PANEL CPT-4 69945 Aug 14, 2015 VENIPUNCT, ROUTINE* CPT-4 83636 Aug 14, 2015 GLYCATED HEMOGLOBIN TEST CPT-4 88564 Aug 14, 2015 Office Visit, Est Pt., Level 3 CPT-4 73463 J an 2015 Vital Signs Date/Time: Aug 14, 2015 Temperature 98.0 F Weight 207 lbs Height 63 in BMI 36.66 Index Blood Pressure Diastolic 74 mmHg Blood Pressure Systolic 132 mmHg Cardiac Monitoring Heart Rate 72 bpm Results Name Result Date Reference Range Unit Abnormali ty Flag LIPID PANEL ----HDL Cholesterol 50 74039506 >39 mg/dL ----VLDL Cholesterol Stephen 40 21409151 5-40 mg/dL ----LDL Cholesterol Calc 147 74513777 0-99 mg/dL H ----Cholesterol, Total 237 20150814 100-199 mg/dL H ----Triglycerides 199 20150814 0-149 mg/dL H A1C (IN HOUSE) ----A1C IN HOUSE 8.0 20150814 4.30 - 5.6 % ----Previous A1c 9.5 20150814 ----Lot # [id number] ----Exp date [id number] ROUTINE VENIPUNCTURE Summary Purpose eClinicalWorks Submission
--- OUTSIDE RECORDS SUMMARY | 2019-11-01 20:31 | XMS REPORT ---
Author Author Nyasia RUIZ Organization [facility] Address [address] [place] [address] Care Team Providers Care Property And Supply Officer Name Role Phone IRVIN RUIZ Unavailable PROBLEMS Type Condition ICD9-CM Code VKM05-RN Code Onset Dates Condition S tatus SNOMED Code Problem Essential hypertension I10 Active 57714606 Problem Type 2 diabetes mellitus without complications E11 .9 Active 80805477 Problem Costochondritis 733.6 Active 6410 9004 Problem Diabetes 250.00 Active 60175104 Problem Unspecified cardiac dysrhythmia 427.9 Active [id number] ALLERGIES No Information ENCOUNTERS Encounter Location Date Diagnosis [facility] [address] [facility] [id number] [address] [place] [address] Apr, [facility] [address] [facility] [id number] [address] [place] [address] Mar, Type 2 diabetes mellitus wit hout complications E11.9 [facility] [address] [facility] [id number] [address] [place] [address] Mar, Type 2 diabetes mellitus wit hout complications E11.9 [facility] [address] [facility] [id number] [address] [place] [address] Feb, [facility] [address] [facility] [id number] [address] [place] [address] Jan, [facility] [address] [facility] [id number] [address] [place] [address] Nov, Type 2 diabetes mellitus wit hout complications E11.9 [facility] [address] [facility] [id number] [address] [place] [address] Oct, [facility] [address] [place] [id number] [address] [place] [address] Oct, Labia irritation N90.89 [facility] [address] [id number] [address] [place] [address] Sep, [facility] [address] [id number] [address] [place] [address] Sep, [facility] [address] [id number] [address] [place] [address] Sep, [facility] [address] [id number] [address] [place] [address] Aug, [facility] [address] [id number] [address] [place] [address] Jul, [facility] [address] [id number] [address] [place] [address] Jul, [facility] [address] [id number] [address] [place] [address] Mar, Type 2 diabetes mellitus wit hout complications E11.9 ; Acute pain of right knee M25.561 and Essential hypertension I10 [facility] [address] [id number] [address] [place] [address] Mar, [facility] [address] [id number] [address] [place] [address] Mar, Dysuria R30.0 [facility] [address] [id number] [address] [place] [address] December, [facility] [address] [id number] [address] [place] [address] Nov, [facility] [address] [id number] [address] [place] [address] Nov, Dental examination Z01.20 [facility] [address] [id number] [address] [place] [address] Nov, Dental examination Z01.20 [facility] [address] [id number] [address] [place] [address] Nov, Non-intractable vomiting wit h nausea, unspecified vomiting type R11.2 ; Arthralgia, unspecified joint M25.50 ; Fever, unspecified fever cause R50.9 ; Type 2 diabetes mellitus without complications E11.9 and Tooth pain K08.89 [place] [address] [place] [id number] [address] [place] [address] Nov, Type 2 diabetes mellitus wit hout complications E11.9 [place] [address] [address] Nov, Type 2 diabetes mellitus wit hout complications E11.9 and Bronchitis J40 [place] [address] [address] Oct, Type 2 diabetes mellitus wit hout complications E11.9 [place] [address] [place] [id number] [address] [place] [address] Jul, [place] [address] [place] [id number] [address] [place] [address] Jul, Dysuria R30.0 ; Hematuria R3 1.9 and Vaginal pain R10.2 [place] [address] [place] [address] Jul, Dysuria R30.0 ; Vaginal disc harge N89.8 and Low back strain, initial encounter S39.012A [place] [address] [place] [id number] [address] [place] [address] Jun, Bacterial conjunctivitis of right eye H10.9 ; Sore throat J02.9 and Acute non-recurrent maxillary sinusitis J01.00 [place] [address] [place] [address] Jun, [place] [address] [place] [id number] [address] [place] [address] May, [place] [address] [place] [id number] [address] [place] [address] Apr, [facility] [address] [id number] [address] [place] [address] 14 Apr, 2016 [facility] [address] [id number] [address] [place] [address] Apr, [facility] [address] [id number] [address] [place] [address] Apr, Type 2 diabetes mellitus wit hout complications E11.9 [facility] [address] [id number] [address] [place] [address] Mar, [facility] [address] [id number] [address] [place] [address] Feb, Bronchitis J40 [facility] [address] [id number] [address] [place] [address] Feb, Bronchitis J40 [facility] [address] [id number] [address] [place] [address] Feb, Type 2 diabetes mellitus wit hout complications E11.9 [facility] [address] [id number] [address] [place] [address] Feb, [facility] [address] [id number] [address] [place] [address] Feb, [facility] [address] [id number] [address] [place] [address] Feb, Type 2 diabetes mellitus wit hout complications E11.9 and Dysuria R30.0 [facility] [address] [id number] [address] [place] [address] Jan, Type 2 diabetes mellitus wit hout complications E11.9 [facility] [address] [id number] [address] [place] [address] Jan, Type 2 diabetes mellitus wit hout complications E11.9 [facility] [address] [id number] [address] [place] [address] December, Type 2 diabetes mellitus wit hout complications E11.9 [facility] [address] [place] [id number] [address] [place] [address] Nov, Type 2 diabetes mellitus wit hout complications E11.9 [place] [address] [address] Oct, Type 2 diabetes mellitus wit hout complications E11.9 ; Fever R50.9 ; Myalgia M79.1 and Cough R05 [place] [address] [address] 15 Sep, 2015 Dysuria R30.0 and Cystitis N 30.90 [place] [address] [address] Sep, [place] [address] [address] Sep, [facility] [address] [place] [id number] [place] [id number] Aug, Dental examination Z01.20 [place] [address] [place] [id number] [address] [place] [address] Aug, Type 2 diabetes mellitus wit hout complications E11.9 [place] [address] [address] Jul, Dysfunction of left eustachi an tube H69.82 [place] [address] [place] [id number] [address] [place] [address] Jun, [place] [address] [place] [id number] [address] [place] [address] Jun, Cellulitis L03.90 [place] [address] [address] Jun, [place] [address] [address] Jun, [place] [address] [address] Jun, [place] [address] [place] [id number] [address] [place] [address] May, Dermatofibroma of ankle, rig ht D23.71 [place] [address] [place] [id number] [address] [place] [address] May, [place] [address] [place] [id number] [address] [place] [address] Apr, Diabetes 250.00 and 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 [place] [address] [place] [id number] [address] [place] [address] Apr, [place] [address] [address] Apr, [place] [address] [address] Apr, Diabetes 250.00 ; Influenza vaccine administered V04.81 and Allergic rhinitis 477.9 [place] [address] [place] [id number] [address] [place] [address] Mar, [place] [address] [address] Jan, [place] [address] [place] [id number] [address] [place] [address] Jan, DM w/o complication type II 250.00 [place] [id number] [address] [place] [address] December, DM w/o complication type II 250.00 ; Calcaneal spur 726.73 ; Vaginitis due to Amanda 112.1 and Onychomycosis 110.1 [place] [address] [place] [id number] [address] [place] [address] 30 Nov, 2014 Amanda infection of genital region 112.2 [place] [address] [place] [id number] [address] [place] [address] Nov, [place] [address] [place] [address] Nov, [facility] [address] [id number] [address] [place] [address], [place] [address] Oct, [facility] [address] [id number] [address] [place] [address], [place] [address] Oct, [facility] [address] [id number] [address] [place] [address], [place] [address] Sep, [facility] [address] [id number] [address] [place] [address], [place] [address] Sep, [facility] [address] [id number] [address] [place] [address], [place] [address] Jul, [facility] [address] [id number] [address] [place] [address], [place] [address] Jul, [facility] [address] [id number] [address] [place] [address], [place] [address] Jun, [facility] [address] [id number] [address] [place] [address], [place] [address] Jun, [facility] [address] [id number] [address] [place] [address], [place] [address] Jun, [facility] [address] [id number] [address] [place] [address], [place] [address] Jun, [facility] [address] [id number] [address] [place] [address], [place] [address] May, [facility] [address] [id number] [address] [place] [address], [place] [address] May, [facility] [address] [id number] [address] [place] [address], [place] [address] May, [facility] [address] [id number] [address] [place] [address], [place] [address] May, [facility] [address] [id number] [address] [place] [address], [place] [address] Apr, [facility] [address] [id number] [facility] [place] [address] Apr, [facility] [address] [id number] [address] [place] [address], [place] [address] Apr, [facility] [address] [id number] [address] [place] [address], [place] [address] Apr, [facility] [address] [id number] [address] [place] [address], [place] [address] Mar, [facility] [address] [id number] [address] [place] [address], [place] [address] Mar, [facility] [address] [id number] [address] [place] [address], [place] [address] Mar, [facility] [address] [id number] [address] [place] [address], [place] [address] Mar, [facility] [address] [id number] [address] [place] [address], [place] [address] Mar, [facility] [address] [id number] [address] [place] [address], [place] [address] Mar, [facility] [address] [id number] [address] [place] [address], [place] [address] Mar, [facility] [address] [id number] [address] [place] [address], [place] [address] Mar, [facility] [address] [id number] [address] [place] [address], [place] [address] Mar, [facility] [address] [id number] [address] [place] [address], [place] [address] Mar, [facility] [address] [id number] [address] [place] [address], [place] [address] Mar, [facility] [address] [id number] [address] [place] [address], [place] [address] Mar, [facility] [address] [id number] [address] [place] [address], [place] [address] Feb, [facility] [address] [id number] [facility] [place] [address] Feb, [facility] [address] [id number] [address] [place] [address], [place] [address] Jan, [facility] [address] [id number] [address] [place] [address], [place] [address] Jan, [facility] [address] [id number] [address] [place] [address], [place] [address] Jan, [facility] [address] [id number] [address] [place] [address], [place] [address] Jan, [facility] [address] [id number] [address] [place] [address], [place] [address] December, [facility] [address] [id number] [address] [place] [address], [place] [address] December, [facility] [address] [id number] [address] [place] [address], [place] [address] December, [facility] [address] [id number] [address] [place] [address], [place] [address] December, [facility] [address] [id number] [address] [place] [address], [place] [address] Nov, [facility] [address] [id number] [address] [place] [address], [place] [address] Nov, [facility] [address] [id number] [address] [place] [address], [place] [address] Nov, [facility] [address] [id number] [address] [place] [address], [place] [address] Nov, [facility] [address] [id number] [address] [place] [address], [place] [address] Nov, [facility] [address] [id number] [address] [place] [address], [place] [address] Nov, [facility] [address] [id number] [address] [place] [address], [place] [address] 02 Nov, 2013 [facility] [address] [id number] [address] [place] [address], [place] [address] Oct, [facility] [address] [id number] [address] [place] [address], [place] [address] 31 Oct, 2013 [facility] [address] [id number] [address] [place] [address], [place] [address] Oct, [facility] [address] [id number] [address] [place] [address], [place] [address] Oct, [facility] [address] [id number] [address] [place] [address], [place] [address] Oct, [facility] [address] [id number] [address] [place] [address], [place] [address] Oct, [facility] [address] [id number] [address] [place] [address], [place] [address] Oct, [facility] [address] [id number] [address] [place] [address], [place] [address] 07 Sep, 2013 [facility] [address] [id number] [address] [place] [address], [place] [address] 07 Sep, 2013 [facility] [address] [id number] [address] [place] [address], [place] [address] Sep, [facility] [address] [id number] [address] [place] [address], [place] [address] Sep, [facility] [address] [id number] [address] [place] [address], [place] [address] Aug, [facility] [address] [id number] [address] [place] [address], [place] [address] Aug, [facility] [address] [id number] [address] [place] [address], [place] [address] Aug, [facility] [address] [id number] [address] [place] [address] [address] Aug, [facility] [address] [id number] [address] [place] [address], [place] [address] Jul, [facility] [address] [id number] [address] [place] [address], [place] [address] Jul, [facility] [address] [id number] [address] [place] [address], [place] [address] Apr, [facility] [address] [id number] [address] [place] [address], [place] [address] Apr, [facility] [address] [id number] [address] [place] [address], [place] [address] Mar, [facility] [address] [id number] [address] [place] [address], [place] [address] Mar, [facility] [address] [id number] [address] [place] [address], [place] [address] Mar, [facility] [address] [id number] [address] [place] [address], [place] [address] Mar, [facility] [address] [id number] [address] [place] [address], [place] [address] Mar, [facility] [address] [id number] [address] [place] [address], [place] [address] Mar, [facility] [address] [id number] [address] [place] [address], [place] [address] Mar, [facility] [address] [id number] [address] [place] [address], [place] [address] Mar, [facility] [address] [id number] [address] [place] [address], [place] [address] Mar, [facility] [address] [id number] [address] [place] [address], [place] [address] Mar, [facility] [address] [id number] [address] [place] [address], [place] [address] Feb, [facility] [address] [id number] [address] [place] [address], [place] [address] 26 Feb, 2013 [facility] [address] [id number] [address] [place] [address], [place] [address] 18 Feb, 2013 [facility] [address] [id number] [address] [place] [address], [place] [address] 08 Feb, 2013 [facility] [address] [id number] [address] [place] [address], [place] [address] Jan, [facility] [address] [id number] [address] [place] [address], [place] [address] 25 Nov, 2012 [facility] [address] [id number] [address] [place] [address], [place] [address] 16 Nov, 2012 [facility] [address] [id number] [address] [place] [address], [place] [address] 15 Nov, 2012 [facility] [address] [id number] [address] [place] [address], [place] [address] Nov, [facility] [address] [id number] [address] [place] [address], [place] [address] Oct, [facility] [address] [id number] [address] [place] [address], [place] [address] Sep, [facility] [address] [id number] [address] [place] [address], [place] [address] Sep, [facility] [place] [address] [id number] [address] [place] [address], [place] [address] Aug, [facility] [place] [address] [id number] [address] [place] [address], [place] [address] Jul, [facility] [address] [id number] [address] [place] [address], [place] [address] Jul, [facility] [address] [id number] [address] [place] [address], [place] [address] May, [facility] [place] [address] [id number] [address] [place] [address], [place] [address] May, [facility] [address] [id number] [address] [place] [address], [place] [address] May, [facility] [address] [id number] [address] [place] [address], [place] [address] May, [facility] [address] [id number] [address] [place] [address], [place] [address] Apr, [facility] [address] [id number] [address] [place] [address], [place] [address] Mar, [facility] [address] [id number] [address] [place] [address], [place] [address] Mar, [facility] [address] [id number] [address] [place] [address], [place] [address] Mar, [facility] [address] [id number] [address] [place] [address], [place] [address] Mar, [facility] [address] [id number] [address] [place] [address], [place] [address] Mar, [facility] [address] [id number] [address] [place] [address], [place] [address] Mar, [facility] [address] [id number] [address] [place] [address], [place] [address] Mar, [facility] [address] [id number] [address] [place] [address], [place] [address] Mar, [facility] [address] [id number] [address] [place] [address], [place] [address] Feb, [facility] [address] [id number] [address] [place] [address], [place] [address] Feb, [facility] [address] [id number] [address] [place] [address], [place] [address] Jan, [facility] [address] [id number] [address] [place] [address], [place] [address] December, [facility] [address] [id number] [address] [place] [address], [place] [address] 10 Dec, 2011 [facility] [address] [id number] [address] [place] [address], [place] [address] 23 Nov, 2011 [facility] [address] [id number] [address] [place] [address], [place] [address] 19 Nov, 2011 [facility] [address] [id number] [address] [place] [address], [place] [address] 18 Nov, 2011 [facility] [address] [id number] [address] [place] [address], [place] [address] 10 Nov, 2011 [facility] [address] [id number] [address] [place] [address], [place] [address] 08 Oct, 2011 [facility] [address] [id number] [address] [place] [address], [place] [address] 29 Sep, 2011 [facility] [address] [id number] [address] [place] [address], [place] [address] 21 Sep, 2011 [facility] [address] [id number] [address] [place] [address], [place] [address] 17 Sep, 2011 [facility] [address] [id number] [address] [place] [address], [place] [address] 17 Sep, 2011 [facility] [address] [id number] [address] [place] [address], [place] [address] 16 Sep, 2011 [facility] [address] [id number] [address] [place] [address], [place] [address] 16 Sep, 2011 [facility] [address] [id number] [address] [place] [address], [place] [address] 15 Sep, 2011 [facility] [address] [id number] [address] [place] [address], [place] [address] 15 Sep, 2011 [facility] [address] [id number] [address] [place] [address], [place] [address] Aug, [facility] [address] [id number] [address] [place] [address], [place] [address] Jul, [facility] [address] [id number] [address] [place] [address], [place] [address] 14 Jul, 2011 [facility] [address] [id number] [address] [place] [address], [place] [address] 14 Jul, 2011 [facility] [address] [id number] [address] [place] [address], [place] [address] 08 Jun, 2011 [facility] [address] [id number] [address] [place] [address], [place] [address] Jul, [facility] [address] [id number] [address] [place] [address], [place] [address] Jul, [facility] [address] [id number] [address] [place] [address], [place] [address] 16 Jul, 2010 [facility] [address] [id number] [address] [place] [address], [place] [address] Jul, [facility] [address] [id number] [address] [place] [address], [place] [address] Jul, [facility] [address] [id number] [address] [place] [address], [place] [address] May, [facility] [address] [id number] [address] [place] [address], [place] [address] May, [facility] [address] [id number] [address] [place] [address] May, [facility] [address] [id number] [address] [place] [address] 15 Apr, 2010 [facility] [address] [id number] [address] [place] [address], [place] [address] 13 Jun, 2009 [facility] [address] [id number] [address] [place] [address] 13 Jun, 2009 [facility] [address] [id number] [address] [place] [id number] 27 May, 2009 [facility] [address] [id number] [address] [place] [id number] Jan, IMMUNIZATIONS No Known Immunizations SOCIAL HISTORY Never Assessed REASON FOR VISIT PALS IN-Trulicity PLAN OF CARE VITAL SIGNS MEDICATIONS Unknown [...] History tumor removal left leg Hospitalization History [facility] 03/2012
--- OUTSIDE RECORDS SUMMARY | 2019-11-01 20:31 | XMS REPORT ---
Author Nyasia Carrera Organization [employer] Address Unknown Phone Unavailable Care Team Providers Care Insolvency Consultant Name Role Phone SAMUEL WEATHERS CP Unavailable Allergies, Adverse Reactions, Alerts Substance Reaction Event Type Metformin HCl Info Not Available Drug Allergy Glucotrol XL Info Not Available Drug Allergy Doxycycline Hyclate Info Not Available Drug Allergy Problems Problem Type Condition Code Onset Dates Condition Statu s Problem Unspecified cardiac dysrhythmia 427.9 Active Problem Costochondritis 733.6 Active Problem Diabetes 250.00 Active Assessment Cellulitis L03.90 Active Medications Medication Code System Code Instructions Start Date End Date Status Dosage Januvia [facility] [address]-37 100 MG Once a day Apr 21, 2014 1 Tablet by Oral route 1 time per day Actos [facility] [address]-27 30 MG Orally Once a day Apr 25, 2015 1 tablet Sulfamethoxazole-TMP DS [facility] [address]-90 800-160 MG Orall y 2 times a day Jul 04, 2015 Jul 09, 2015 1 tablet GlipiZIDE ER [facility] [address]-05 5 MG Orally TAKE ONE TABLET BY MOUTH TWICE DAILY Atenolol [facility] [id number] 50 MG TAKE ONE TA BLET BY MOUTH DAILY Silvadene [facility] [address]-61 1 % Externally Once a day Jul 04, 2015 1 application to affected area Procedures Procedure Coding System Code Date Office Visit, Est Pt., Level 3 CPT-4 91497 N 2014 Vital Signs Date/Time: Jul 04, 2015 Temperature 98.1 F Weight 207.7 lbs Height 63 in BMI 36.79 Index Blood Pressure Diastolic 60 mmHg Blood Pressure Systolic 120 mmHg Cardiac Monitoring Heart Rate 78 bpm Results No Known Results Summary Purpose [employer] Submission
--- OUTSIDE RECORDS SUMMARY | 2019-11-01 20:31 | XMS REPORT ---
Author Author Nyasia RUIZ [facility] Address [address] [place] [address] Care Team Providers Care Director Of Search Engine Optimization Name Role Phone IRVIN RUIZ Unavailable PROBLEMS Type Condition ICD9-CM Code TZC18-EQ Code Onset Dates Condition S tatus SNOMED Code Problem Essential hypertension I10 Active 08786224 Problem Type 2 diabetes mellitus without complications E11 .9 Active 65091709 Problem Costochondritis 733.6 Active 6410 9004 Problem Diabetes 250.00 Active 21354204 Problem Unspecified cardiac dysrhythmia 427.9 Active [id number] ALLERGIES No Information ENCOUNTERS Encounter Location Date Diagnosis [facility] [address] [id number] [address] [place] [address] Jan, [facility] [address] [id number] [address] [place] [address] Nov, Type 2 diabetes mellitus wit hout complications E11.9 [facility] [address] [id number] [address] [place] [address] Oct, [facility] [address] [id number] [address] [place] [address] Oct, Labia irritation N90.89 [facility] [address] [id number] [address] [place] [id number] Sep, [facility] [address] [id number] [address] [place] [address] Sep, [facility] [address] [id number] [address] [place] [address] Sep, [facility] [address] [id number] [address] [place] [address] Aug, [place] [id number] [facility] [id number] [address] [place] [address] Jul, [facility] [address] [facility] [id number] [place] [address] Jul, [facility] [address] [facility] [id number] [address] [place] [address] Mar, Type 2 diabetes mellitus wit hout complications E11.9 ; Acute pain of right knee M25.561 and Essential hypertension I10 [facility] [address] [id number] [address] [place] [address] Mar, [facility] [id number] [place] [address] Mar, Dysuria R30.0 [place] [id number] [place] [address] December, [facility] [id number] [place] [address] Nov, [facility] [address] [id number] [address] [place] [address] Nov, Dental examination Z01.20 [place] [address] [address] [id number] [address] [place] [address] Nov, Dental examination Z01.20 [place] [address] [address] Nov, Non-intractable vomiting wit h nausea, unspecified vomiting type R11.2 ; Arthralgia, unspecified joint M25.50 ; Fever, unspecified fever cause R50.9 ; Type 2 diabetes mellitus without complications E11.9 and Tooth pain K08.89 [facility] [address] [facility] [id number] [address] [place] [address] Nov, Type 2 diabetes mellitus wit hout complications E11.9 [facility] [address] [id number] [address] [place] [address] Nov, Type 2 diabetes mellitus wit hout complications E11.9 and Bronchitis J40 [facility] [address] [id number] [address] [place] [address] Oct, Type 2 diabetes mellitus wit hout complications E11.9 [facility] [address] [id number] [address] [place] [address] Jul, [facility] [address] [id number] [address] [place] [address] Jul, Dysuria R30.0 ; Hematuria R3 1.9 and Vaginal pain R10.2 [facility] [address] [id number] [address] [place] [address] Jul, Dysuria R30.0 ; Vaginal disc harge N89.8 and Low back strain, initial encounter S39.012A [facility] [address] [id number] [address] [place] [address] Jun, Bacterial conjunctivitis of right eye H10.9 ; Sore throat J02.9 and Acute non-recurrent maxillary sinusitis J01.00 [facility] [address] [id number] [address] [place] [address] Jun, [facility] [address] [id number] [address] [place] [address] May, [facility] [address] [id number] [address] [place] [address] Apr, [facility] [address] [id number] [address] [place] [address] 14 Apr, 2016 [facility] [address] [id number] [address] [place] [address] Apr, [facility] [address] [id number] [address] [place] [address] Apr, Type 2 diabetes mellitus wit hout complications E11.9 [facility] [address] [id number] [address] [place] [address] Mar, [facility] [address] [id number] [address] [place] [address] Feb, Bronchitis J40 [facility] [address] [facility] [id number] [address] [place] [address] Feb, Bronchitis J40 [facility] [address] [facility] [id number] [address] [place] [address] Feb, Type 2 diabetes mellitus wit hout complications E11.9 [facility] [address] [facility] [id number] [address] [place] [address] Feb, [facility] [address] [facility] [id number] [address] [place] [address] Feb, [facility] [address] [facility] [id number] [address] [place] [address] Feb, Type 2 diabetes mellitus wit hout complications E11.9 and Dysuria R30.0 [place] [address] [facility] [id number] [address] [place] [address] Jan, Type 2 diabetes mellitus wit hout complications E11.9 [facility] [address] [facility] [id number] [address] [place] [address] Jan, Type 2 diabetes mellitus wit hout complications E11.9 [facility] [address] [facility] [id number] [address] [place] [address] December, Type 2 diabetes mellitus wit hout complications E11.9 [facility] [address] [facility] [id number] [address] [place] [address] Nov, Type 2 diabetes mellitus wit hout complications E11.9 [facility] [address] [facility] [id number] [address] [place] [address] Oct, Type 2 diabetes mellitus wit hout complications E11.9 ; Fever R50.9 ; Myalgia M79.1 and Cough R05 [facility] [address] [facility] [id number] [address] [place] [address] 15 Sep, 2015 Dysuria R30.0 and Cystitis N 30.90 [place] [address] [id number] [address] [place] [address] Sep, [facility] [address] [facility] [id number] [address] [place] [address] Sep, [facility] [address] [id number] [address] [place] [id number] Aug, Dental examination Z01.20 [facility] [address] [facility] [id number] [address] [place] [address] Aug, Type 2 diabetes mellitus wit hout complications E11.9 [facility] [address] [facility] [id number] [address] [place] [address] Jul, Dysfunction of left eustachi an tube H69.82 [facility] [address] [facility] [id number] [address] [place] [phone] Jun, [facility] [address] [facility] [id number] [address] [place] [address] Jun, Cellulitis L03.90 [facility] [address] [facility] [id number] [address] [place] [address] Jun, [facility] [address] [id number] [address] [place] [address] Jun, [facility] [address] [id number] [address] [place] [phone] Jun, [facility] [address] [facility] [id number] [address] [place] [address] May, Dermatofibroma of ankle, rig ht D23.71 [facility] [address] [facility] [id number] [address] [place] [address] May, [facility] [address] [facility] [id number] [address] [place] [address] Apr, Diabetes 250.00 and 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 [facility] [address] [facility] [id number] [address] [place] [address] Apr, [facility] [address] [facility] [id number] [address] [place] [address] Apr, [facility] [address] [facility] [id number] [address] [place] [address] Apr, Diabetes 250.00 ; Influenza vaccine administered V04.81 and Allergic rhinitis 477.9 [facility] [address] [facility] [id number] [address] [place] [id number] Mar, [facility] [address] [facility] [id number] [address] [place] [address] Jan, [facility] [address] [facility] [id number] [address] [place] [address] Jan, DM w/o complication type II 250.00 [facility] [address] [facility] [id number] [address] [place] [address] December, DM w/o complication type II 250.00 ; Calcaneal spur 726.73 ; Vaginitis due to Amanda 112.1 and Onychomycosis 110.1 [facility] [address] [facility] [id number] [address] [place] [address] 30 Nov, 2014 Amanda infection of genital region 112.2 [facility] [address] [facility] [id number] [address] [place] [address] 14 Nov, 2014 [facility] [address] [facility] [id number] [address] [place] [id number] Nov, [facility] [address] [facility] [id number] [address] [place] [id number] Oct, [facility] [address] [facility] [id number] [address] [place] [phone] Oct, [facility] [address] [facility] [id number] [address] [place] [phone] Sep, [facility] [address] [facility] [id number] [address] [place] [address] Sep, [facility] [address] [id number] [address] [place] [address], [place] [address] Jul, [facility] [address] [id number] [address] [place] [address], [place] [address] Jul, [facility] [address] [id number] [address] [place] [address], [place] [address] Jun, [facility] [address] [id number] [address] [place] [address], [place] [address] Jun, [facility] [address] [id number] [address] [place] [address], [place] [address] Jun, [facility] [address] [id number] [address] [place] [address], [place] [address] Jun, [facility] [address] [id number] [address] [place] [address], [place] [address] May, [facility] [address] [id number] [address] [place] [address], [place] [address] May, [facility] [address] [id number] [address] [place] [address], [place] [address] May, [facility] [address] [id number] [address] [place] [address], [place] [address] May, [facility] [address] [id number] [address] [place] [address], [place] [address] Apr, [facility] [address] [id number] [address] [place] [address], [place] [address] Apr, [facility] [address] [id number] [address] [place] [address], [place] [address] Apr, [facility] [address] [id number] [address] [place] [address], [place] [address] Apr, [facility] [address] [id number] [address] [place] [address], [place] [address] Mar, [facility] [address] [id number] [address] [place] [address], [place] [address] Mar, [facility] [address] [id number] [facility] [place] [address] Mar, [facility] [address] [id number] [address] [place] [address], [place] [address] Mar, [facility] [address] [id number] [address] [place] [address], [place] [address] Mar, [facility] [address] [id number] [address] [place] [address], [place] [address] Mar, [facility] [address] [id number] [address] [place] [address], [place] [address] Mar, [facility] [address] [id number] [address] [place] [address], [place] [address] Mar, [facility] [address] [id number] [address] [place] [address], [place] [address] Mar, [facility] [address] [id number] [address] [place] [address], [place] [address] Mar, [facility] [address] [id number] [address] [place] [address], [place] [address] Mar, [facility] [address] [id number] [address] [place] [address], [place] [address] Mar, [facility] [address] [id number] [address] [place] [address], [place] [address] Feb, [facility] [address] [id number] [address] [place] [address], [place] [address] Feb, [facility] [address] [id number] [address] [place] [address], [place] [address] Jan, [facility] [address] [id number] [address] [place] [address], [place] [address] Jan, [facility] [address] [id number] [address] [place] [address], [place] [address] Jan, [facility] [address] [id number] [address] [place] [address], [place] [address] Jan, [facility] [address] [id number] [address] [place] [address], [place] [address] December, [facility] [address] [id number] [address] [place] [address], [place] [address] December, [facility] [address] [id number] [address] [place] [address], [place] [address] December, [facility] [address] [id number] [address] [place] [address], [place] [address] December, [facility] [address] [id number] [address] [place] [address], [place] [address] Nov, [facility] [address] [id number] [address] [place] [address], [place] [address] Nov, [facility] [address] [id number] [address] [place] [address], [place] [address] Nov, [facility] [address] [id number] [address] [place] [address], [place] [address] Nov, [facility] [address] [id number] [address] [place] [address], [place] [address] Nov, [facility] [address] [id number] [address] [place] [address], [place] [address] Nov, [facility] [address] [id number] [address] [place] [address], [place] [address] Nov, [facility] [address] [id number] [address] [place] [address], [place] [address] Oct, [facility] [address] [id number] [address] [place] [address], [place] [address] Oct, [facility] [address] [id number] [address] [place] [address], [place] [address] Oct, [facility] [address] [id number] [address] [place] [address], [place] [address] Oct, [facility] [address] [id number] [address] [place] [address], [place] [address] 13 Oct, 2013 [facility] [address] [id number] [address] [place] [address], [place] [address] Oct, [facility] [address] [id number] [address] [place] [address], [place] [address] Oct, [facility] [address] [id number] [address] [place] [address], [place] [address] 07 Sep, 2013 [facility] [address] [id number] [address] [place] [address], [place] [address] Sep, [facility] [address] [id number] [address] [place] [address], [place] [address] Sep, [facility] [address] [id number] [address] [place] [address], [place] [address] Sep, [facility] [address] [id number] [address] [place] [address], [place] [address] Aug, [facility] [address] [id number] [address] [place] [address], [place] [address] Aug, [facility] [address] [id number] [address] [place] [address], [place] [address] Aug, [facility] [address] [id number] [address] [place] [address], [place] [address] Aug, [facility] [address] [id number] [address] [place] [address] Jul, [facility] [address] [id number] [address] [place] [address], [place] [address] Jul, [facility] [address] [id number] [address] [place] [address], [place] [address] 04 Apr, 2013 [facility] [address] [id number] [address] [place] [address], [place] [address] 03 Apr, 2013 [facility] [address] [id number] [address] [place] [address], [place] [address] Mar, [facility] [address] [id number] [address] [place] [address], [place] [address] Mar, [facility] [address] [id number] [address] [place] [address], [place] [address] Mar, [facility] [address] [id number] [address] [place] [address], [place] [address] Mar, [facility] [address] [id number] [address] [place] [address], [place] [address] Mar, [facility] [address] [id number] [address] [place] [address], [place] [address] Mar, [facility] [address] [id number] [address] [place] [address], [place] [address] Mar, [facility] [address] [id number] [address] [place] [address], [place] [address] Mar, [facility] [address] [id number] [address] [place] [address], [place] [address] Mar, [facility] [address] [id number] [address] [place] [address], [place] [address] Mar, [facility] [address] [id number] [address] [place] [address], [place] [address] Feb, [facility] [address] [id number] [address] [place] [address], [place] [address] Feb, [facility] [address] [id number] [address] [place] [address], [place] [address] Feb, [facility] [address] [id number] [address] [place] [address], [place] [address] Feb, [facility] [address] [id number] [address] [place] [address], [place] [address] Jan, [facility] [address] [id number] [address] [place] [address], [place] [address] Nov, [facility] [address] [id number] [address] [place] [address], [place] [address] 16 Nov, 2012 [facility] [address] [id number] [address] [place] [address], [place] [address] 15 Nov, 2012 [facility] [address] [id number] [address] [place] [address], [place] [address] Nov, [facility] [address] [id number] [address] [place] [address], [place] [address] Oct, [facility] [address] [id number] [address] [place] [address], [place] [address] Sep, [facility] [address] [id number] [address] [place] [address], [place] [address] Sep, [facility] [address] [id number] [address] [place] [address], [place] [address] Aug, [facility] [address] [id number] [address] [place] [address], [place] [address] Jul, [facility] [address] [id number] [address] [place] [address], [place] [address] Jul, [facility] [address] [id number] [address] [place] [address], [place] [address] May, [facility] [address] [id number] [address] [place] [address], [place] [address] May, [facility] [address] [id number] [address] [place] [address], [place] [address] May, [facility] [address] [id number] [address] [place] [address], [place] [address] May, [facility] [address] [id number] [address] [place] [address], [place] [address] Apr, [facility] [address] [id number] [address] [place] [address], [place] [address] Mar, [facility] [address] [id number] [address] [place] [address], [place] [address] Mar, [facility] [address] [id number] [address] [place] [address], [place] [address] Mar, [facility] [address] [id number] [address] [place] [address], [place] [address] Mar, [facility] [address] [id number] [address] [place] [address], [place] [address] Mar, [facility] [address] [id number] [address] [place] [address], [place] [address] Mar, [facility] [address] [id number] [address] [place] [address], [place] [address] Mar, [facility] [address] [id number] [address] [place] [address], [place] [address] Mar, [facility] [address] [id number] [address] [place] [address], [place] [address] Feb, [facility] [address] [id number] [address] [place] [address], [place] [address] Feb, [facility] [facility] [address] [id number] [address] [place] [address], [place] [address] Jan, [facility] [address] [id number] [address] [place] [address], [place] [address] December, [facility] [address] [id number] [address] [place] [address], [place] [address] December, [facility] [address] [id number] [address] [place] [address], [place] [address] Nov, [facility] [address] [id number] [address] [place] [address], [place] [address] Nov, [facility] [address] [id number] [address] [place] [address], [place] [address] 18 Nov, 2011 [facility] [address] [id number] [address] [place] [address], [place] [address] Nov, [facility] [address] [id number] [address] [place] [address], [place] [address] 08 Oct, 2011 [facility] [address] [id number] [address] [place] [address], [place] [address] 29 Sep, 2011 [facility] [address] [id number] [address] [place] [address], [place] [address] 21 Sep, 2011 [facility] [address] [id number] [address] [place] [address], [place] [address] Sep, [facility] [address] [id number] [address] [place] [address], [place] [address] 17 Sep, 2011 [facility] [address] [id number] [address] [place] [address], [place] [address] 16 Sep, 2011 [facility] [address] [id number] [address] [place] [address], [place] [address] 16 Sep, 2011 [facility] [address] [id number] [address] [place] [address], [place] [address] 15 Sep, 2011 [facility] [address] [id number] [address] [place] [address], [place] [address] 15 Sep, 2011 [facility] [address] [id number] [address] [place] [address], [place] [address] Aug, [facility] [address] [id number] [address] [place] [address], [place] [address] Jul, [facility] [address] [id number] [address] [place] [address], [place] [address] Jul, [facility] [address] [id number] [address] [place] [address], [place] [address] Jul, [facility] [address] [id number] [address] [place] [address], [place] [address] Jun, [facility] [address] [id number] [address] [place] [address], [place] [address] Jul, [facility] [address] [id number] [address] [place] [address] Jul, [facility] [address] [id number] [address] [place] [address] Jul, [facility] [address] [id number] [address] [place] [address] Jul, [facility] [address] [id number] [address] [place] [address] Jul, [facility] [address] [id number] [address] [place] [address] May, [facility] [address] [id number] [address] [place] [id number] May, [facility] [address] [id number] [address] [place] [address] May, [facility] [address] [id number] [address] [place] [phone] Apr, [facility] [address] [id number] [address] [place] [address] Jun, [facility] [address] [id number] [address] [place] [address] Jun, [facility] [address] [id number] [address] [place] [address] May, [facility] [address] [id number] [address] [place] [id number] Jan, IMMUNIZATIONS No Known Immunizations SOCIAL HISTORY Never Assessed REASON FOR VISIT Requests return call PLAN OF CARE VITAL SIGNS MEDICATIONS Unknown [...]
--- OUTSIDE RECORDS SUMMARY | 2019-11-01 20:31 | XMS REPORT ---
Author Author Nyasia RUIZ [facility] Address [address] [place] [address] Care Team Providers Care Lead Performance Support Analyst Name Role Phone IRVIN RUIZ Unavailable PROBLEMS Type Condition ICD9-CM Code [id number] Code Onset Dates Condition S tatus SNOMED Code Problem Essential hypertension I10 Active 39609711 Problem Type 2 diabetes mellitus without complications E11 .9 Active 28924927 Problem Costochondritis 733.6 Active 6410 9004 Problem Diabetes 250.00 Active 80943014 Problem Unspecified cardiac dysrhythmia 427.9 Active [id number] ALLERGIES No Information ENCOUNTERS Encounter Location Date Diagnosis [facility] [address] [facility] [id number] [address] [place] [id number] Mar, [facility] [address] [facility] [id number] [address] [place] [phone] Feb, [facility] [address] [facility] [id number] [address] [place] [id number] Jan, [facility] [address] [facility] [id number] [address] [place] [id number] Nov, Type 2 diabetes mellitus wit hout complications E11.9 [facility] [address] [facility] [id number] [address] [place] [id number] Oct, [facility] [address] [facility] [id number] [address] [place] [id number] Oct, Labia irritation N90.89 [facility] [address] [facility] [id number] [address] [place] [id number] Sep, [facility] [address] [facility] [id number] [address] [place] [id number] Sep, [facility] [address] [id number] [address] [place] [phone] Sep, [facility] [address] [facility] [id number] [address] [place] [id number] Aug, [facility] [address] [facility] [id number] [address] [place] [id number] Jul, [facility] [address] [facility] [id number] [address] [place] [id number] Jul, [facility] [address] [id number] [address] [place] [id number] Mar, Type 2 diabetes mellitus wit hout complications E11.9 ; Acute pain of right knee M25.561 and Essential hypertension I10 [facility] [address] [place] [id number] [address] [place] [id number] Mar, [facility] [address] [id number] [place] [phone] Mar, Dysuria R30.0 [facility] [address] [facility] [id number] [address] [place] [phone] December, [facility] [address] [facility] [id number] [address] [place] [id number] Nov, [facility] [address] [id number] [address] [place] [id number] Nov, Dental examination Z01.20 [facility] [address] [facility] [id number] [address] [place] [id number] Nov, Dental examination Z01.20 [facility] [address] [facility] [id number] [address] [place] [id number] Nov, Non-intractable vomiting wit h nausea, unspecified vomiting type R11.2 ; Arthralgia, unspecified joint M25.50 ; Fever, unspecified fever cause R50.9 ; Type 2 diabetes mellitus without complications E11.9 and Tooth pain K08.89 [facility] [address] [facility] [id number] [address] [place] [phone] Nov, Type 2 diabetes mellitus wit hout complications E11.9 [facility] [address] [id number] [address] [place] [phone] Nov, Type 2 diabetes mellitus wit hout complications E11.9 and Bronchitis J40 [facility] [address] [id number] [address] [place] [id number] Oct, Type 2 diabetes mellitus wit hout complications E11.9 [facility] [address] [id number] [address] [place] [phone] Jul, [facility] [address] [id number] [address] [place] [id number] Jul, Dysuria R30.0 ; Hematuria R3 1.9 and Vaginal pain R10.2 [facility] [address] [id number] [address] [place] [id number] Jul, Dysuria R30.0 ; Vaginal disc harge N89.8 and Low back strain, initial encounter S39.012A [facility] [address] [id number] [address] [place] [id number] Jun, Bacterial conjunctivitis of right eye H10.9 ; Sore throat J02.9 and Acute non-recurrent maxillary sinusitis J01.00 [facility] [address] [id number] [address] [place] [phone] Jun, [facility] [address] [id number] [address] [place] [phone] May, [facility] [address] [id number] [address] [place] [phone] Apr, [facility] [address] [id number] [address] [place] [id number] 14 Apr, 2016 [facility] [address] [id number] [address] [place] [id number] 12 Apr, 2016 [facility] [address] [id number] [address] [place] [id number] Apr, Type 2 diabetes mellitus wit hout complications E11.9 [facility] [address] [id number] [address] [place] [phone] Mar, [facility] [address] [id number] [address] [place] [phone] Feb, Bronchitis J40 [facility] [address] [id number] [address] [place] [phone] Feb, Bronchitis J40 [facility] [address] [id number] [address] [place] [id number] Feb, Type 2 diabetes mellitus wit hout complications E11.9 [facility] [address] [facility] [id number] [address] [place] [phone] Feb, [facility] [address] [facility] [id number] [address] [place] [id number] Feb, [facility] [address] [facility] [id number] [address] [place] [id number] Feb, Type 2 diabetes mellitus wit hout complications E11.9 and Dysuria R30.0 [facility] [address] [facility] [id number] [address] [place] [phone] Jan, Type 2 diabetes mellitus wit hout complications E11.9 [facility] [address] [facility] [id number] [address] [place] [id number] Jan, Type 2 diabetes mellitus wit hout complications E11.9 [facility] [address] [id number] [address] [place] [id number] December, Type 2 diabetes mellitus wit hout complications E11.9 [facility] [address] [facility] [id number] [address] [place] [phone] Nov, Type 2 diabetes mellitus wit hout complications E11.9 [facility] [address] [facility] [id number] [address] [place] [id number] Oct, Type 2 diabetes mellitus wit hout complications E11.9 ; Fever R50.9 ; Myalgia M79.1 and Cough R05 [facility] [address] [place] [id number] [address] [place] [id number] Sep, Dysuria R30.0 and Cystitis N 30.90 [facility] [address] [id number] [address] [place] [phone] Sep, [facility] [address] [id number] Sep, [facility] [address] [id number] [address] [place] [id number] Aug, Dental examination Z01.20 [place] [address] [id number] Aug, Type 2 diabetes mellitus wit hout complications E11.9 [place] [address] [id number] Jul, Dysfunction of left eustachi an tube H69.82 [facility] [address] [id number] Jun, [facility] [address] [id number] Jun, Cellulitis L03.90 [facility] [address] [place] [id number] [address] [place] [id number] Jun, [facility] [address] [place] [id number] [address] [place] [phone] Jun, [facility] [address] [place] [id number] [address] [place] [phone] Jun, [facility] [address] [id number] May, Dermatofibroma of ankle, rig ht D23.71 [facility] [address] [id number] [address] [place] [phone] May, [facility] [id number] [place] [phone] 29 Apr, 2015 Diabetes 250.00 and 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 [facility] [address] [facility] [id number] [address] [place] [id number] 22 Apr, 2015 [facility] [address] [facility] [id number] [address] [place] [phone] Apr, [facility] [address] [facility] [id number] [address] [place] [id number] 15 Apr, 2015 Diabetes 250.00 ; Influenza vaccine administered V04.81 and Allergic rhinitis 477.9 [facility] [address] [facility] [id number] [address] [place] [phone] Mar, [facility] [address] [facility] [id number] [address] [place] [id number] Jan, [facility] [address] [id number] [address] [place] [id number] Jan, DM w/o complication type II 250.00 [facility] [address] [facility] [id number] [address] [place] [id number] December, DM w/o complication type II 250.00 ; Calcaneal spur 726.73 ; Vaginitis due to Amanda 112.1 and Onychomycosis 110.1 [place] [address] [facility] [id number] [address] [place] [phone] 30 Nov, 2014 Amanda infection of genital region 112.2 [facility] [address] [facility] [id number] [address] [place] [id number] 14 Nov, 2014 [facility] [address] [facility] [id number] [address] [place] [phone] Nov, [facility] [address] [facility] [id number] [address] [place] [id number] Oct, [facility] [address] [facility] [id number] [address] [place] [phone] Oct, [facility] [address] [id number] [address] [place] [address], [place] [address] Sep, [facility] [address] [id number] [address] [place] [address], [place] [address] Sep, [facility] [address] [id number] [address] [place] [address], [place] [address] Jul, [facility] [address] [id number] [address] [place] [address], [place] [address] Jul, [facility] [address] [id number] [address] [place] [address], [place] [address] Jun, [facility] [address] [id number] [address] [place] [address], [place] [address] Jun, [facility] [address] [id number] [address] [place] [address], [place] [address] Jun, [facility] [address] [id number] [address] [place] [address], [place] [address] Jun, [facility] [address] [id number] [address] [place] [address], [place] [address] May, [facility] [address] [id number] [address] [place] [address], [place] [address] May, [facility] [address] [id number] [address] [place] [address], [place] [address] May, [facility] [address] [id number] [address] [place] [address], [place] [address] May, [facility] [address] [id number] [address] [place] [address], [place] [address] Apr, [facility] [address] [id number] [address] [place] [address], [place] [address] Apr, [facility] [address] [id number] [address] [place] [address], [place] [address] Apr, [facility] [address] [id number] [address] [place] [address], [place] [address] Apr, [facility] [address] [id number] [facility] [place] [address] Mar, [facility] [address] [id number] [address] [place] [address], [place] [address] Mar, [facility] [address] [id number] [address] [place] [address], [place] [address] Mar, [facility] [address] [id number] [address] [place] [address], [place] [address] Mar, [facility] [address] [id number] [address] [place] [address], [place] [address] Mar, [facility] [address] [id number] [address] [place] [address], [place] [address] Mar, [facility] [address] [id number] [address] [place] [address], [place] [address] Mar, [facility] [address] [id number] [address] [place] [address], [place] [address] Mar, [facility] [address] [id number] [address] [place] [address], [place] [address] Mar, [facility] [address] [id number] [address] [place] [address], [place] [address] Mar, [facility] [address] [id number] [address] [place] [address], [place] [address] Mar, [facility] [address] [id number] [address] [place] [address], [place] [address] Mar, [facility] [address] [id number] [address] [place] [address], [place] [address] Feb, [facility] [address] [id number] [address] [place] [address], [place] [address] Feb, [facility] [address] [id number] [address] [place] [address], [place] [address] Jan, [facility] [address] [id number] [address] [place] [address], [place] [address] Jan, [facility] [address] [id number] [address] [place] [address], [place] [address] Jan, [facility] [address] [id number] [address] [place] [address], [place] [address] Jan, [facility] [address] [id number] [address] [place] [address], [place] [address] December, [facility] [address] [id number] [address] [place] [address], [place] [address] December, [facility] [address] [id number] [address] [place] [address], [place] [address] December, [facility] [address] [id number] [address] [place] [address], [place] [address] December, [facility] [address] [id number] [address] [place] [address], [place] [address] Nov, [facility] [address] [id number] [address] [place] [address], [place] [address] Nov, [facility] [address] [id number] [address] [place] [address], [place] [address] Nov, [facility] [address] [id number] [address] [place] [address], [place] [address] Nov, [facility] [address] [id number] [address] [place] [address], [place] [address] Nov, [facility] [address] [id number] [address] [place] [address], [place] [address] Nov, [facility] [address] [id number] [address] [place] [address], [place] [address] Nov, [facility] [address] [id number] [address] [place] [address], [place] [address] Oct, [facility] [address] [id number] [address] [place] [address], [place] [address] Oct, [facility] [address] [id number] [address] [place] [address], [place] [address] 28 Oct, 2013 [facility] [address] [id number] [address] [place] [address], [place] [address] 13 Oct, 2013 [facility] [address] [id number] [address] [place] [address], [place] [address] Oct, [facility] [address] [id number] [address] [place] [address], [place] [address] Oct, [facility] [address] [id number] [address] [place] [address], [place] [address] Oct, [facility] [address] [id number] [address] [place] [address], [place] [address] 07 Sep, 2013 [facility] [address] [id number] [address] [place] [address], [place] [address] Sep, [facility] [address] [id number] [address] [place] [address], [place] [address] Sep, [facility] [address] [id number] [address] [place] [address], [place] [address] Sep, [facility] [address] [id number] [address] [place] [address], [place] [address] Aug, [facility] [address] [id number] [address] [place] [address], [place] [address] Aug, [facility] [address] [id number] [address] [place] [address], [place] [address] Aug, [facility] [address] [id number] [address] [place] [address], [place] [address] Aug, [facility] [address] [id number] [address] [place] [address], [place] [address] Jul, [facility] [address] [id number] [address] [place] [address], [place] [address] Jul, [facility] [address] [id number] [address] [place] [address], [place] [address] 04 Apr, 2013 [facility] [address] [id number] [address] [place] [address], [place] [address] Apr, [facility] [address] [id number] [address] [place] [address], [place] [address] Mar, [facility] [address] [id number] [address] [place] [address], [place] [address] Mar, [facility] [address] [id number] [address] [place] [address], [place] [address] Mar, [facility] [address] [id number] [address] [place] [address], [place] [address] Mar, [facility] [address] [id number] [address] [place] [address], [place] [address] Mar, [facility] [address] [id number] [address] [place] [address], [place] [address] Mar, [facility] [address] [id number] [address] [place] [address], [place] [address] Mar, [facility] [address] [id number] [address] [place] [address], [place] [address] Mar, [facility] [address] [id number] [address] [place] [address], [place] [address] Mar, [facility] [address] [id number] [address] [place] [address], [place] [address] Mar, [facility] [address] [id number] [address] [place] [address], [place] [address] Feb, [facility] [address] [id number] [address] [place] [address], [place] [address] Feb, [facility] [address] [id number] [address] [place] [address], [place] [address] Feb, [facility] [address] [id number] [address] [place] [address], [place] [address] Feb, [facility] [address] [id number] [address] [place] [address], [place] [address] Jan, [facility] [address] [id number] [address] [place] [address], [place] [address] 25 Nov, 2012 [facility] [address] [id number] [address] [place] [address], [place] [address] 16 Nov, 2012 [facility] [address] [id number] [address] [place] [address], [place] [address] 15 Nov, 2012 [facility] [address] [id number] [address] [place] [address], [place] [address] Nov, [facility] [address] [id number] [address] [place] [address], [place] [address] Oct, [facility] [address] [id number] [address] [place] [address], [place] [address] Sep, [facility] [address] [id number] [address] [place] [address], [place] [address] Sep, [facility] [address] [id number] [address] [place] [address], [place] [address] Aug, [facility] [address] [id number] [address] [place] [address], [place] [address] Jul, [facility] [address] [id number] [address] [place] [address], [place] [address] Jul, [facility] [address] [id number] [address] [place] [address], [place] [address] May, [facility] [address] [id number] [address] [place] [address], [place] [address] May, [facility] [address] [id number] [address] [place] [address], [place] [address] May, [facility] [address] [id number] [address] [place] [address], [place] [address] May, [facility] [address] [id number] [address] [place] [address], [place] [address] Apr, [facility] [address] [id number] [address] [place] [address], [place] [address] Mar, [facility] [address] [id number] [address] [place] [address], [place] [address] Mar, [facility] [address] [id number] [address] [place] [address], [place] [address] Mar, [facility] [address] [id number] [address] [place] [address], [place] [address] Mar, [facility] [address] [id number] [address] [place] [address], [place] [address] Mar, [facility] [address] [id number] [address] [place] [address], [place] [address] Mar, [facility] [address] [id number] [address] [place] [address], [place] [address] Mar, [facility] [address] [id number] [address] [place] [address], [place] [address] Mar, [facility] [address] [id number] [address] [place] [address], [place] [address] Feb, [facility] [address] [id number] [address] [place] [address], [place] [address] Feb, [facility] [address] [id number] [address] [place] [address], [place] [address] Jan, [facility] [address] [id number] [address] [place] [address], [place] [address] December, [facility] [address] [id number] [address] [place] [address], [place] [address] December, [facility] [address] [id number] [address] [place] [address], [place] [address] Nov, [facility] [address] [id number] [address] [place] [address], [place] [address] Nov, [facility] [address] [id number] [address] [place] [address], [place] [address] 18 Nov, 2011 [facility] [address] [id number] [address] [place] [address], [place] [address] 10 Nov, 2011 [facility] [address] [id number] [address] [place] [address], [place] [address] 08 Oct, 2011 [facility] [address] [id number] [address] [place] [address], [place] [address] 29 Sep, 2011 [facility] [address] [id number] [address] [place] [address], [place] [address] 21 Sep, 2011 [facility] [address] [id number] [address] [place] [address], [place] [address] Sep, [facility] [address] [id number] [address] [place] [address], [place] [id number] 17 Sep, 2011 [facility] [address] [id number] [address] [place] [address], [place] [id number] 16 Sep, 2011 [facility] [address] [id number] [address] [place] [address], [place] [id number] 16 Sep, 2011 [facility] [address] [id number] [address] [place] [address], [place] [id number] 15 Sep, 2011 [facility] [address] [id number] [address] [place] [address], [place] [id number] 15 Sep, 2011 [facility] [address] [id number] [address] [place] [address], [place] [id number] Aug, [facility] [address] [id number] [address] [place] [address], [place] [id number] Jul, [facility] [address] [id number] [address] [place] [address], [place] [id number] Jul, [facility] [address] [id number] [address] [place] [address], [place] [id number] Jul, [facility] [address] [id number] [address] [place] [id number] Jun, [facility] [address] [id number] [address] [place] [id number] Jul, [facility] [address] [id number] [address] [place] [id number] Jul, [facility] [address] [id number] [address] [place] [id number] Jul, [facility] [address] [id number] [address] [place] [id number] Jul, [facility] [address] [id number] [address] [place] [id number] Jul, [facility] [address] [id number] [address] [place] [id number] May, [facility] [address] [id number] [address] [place] [id number] May, [facility] [address] [id number] [address] [place] [id number] May, [facility] [address] [id number] [address] [place] [id number] Apr, [facility] [address] [id number] [address] [place] [id number] Jun, [facility] [address] [id number] [address] [place] [id number] Jun, [facility] [address] [id number] [address] [place] [id number] May, [facility] [address] [id number] [address] [place] [id number] Jan, IMMUNIZATIONS No Known Immunizations SOCIAL HISTORY Never Assessed REASON FOR VISIT PALS/Trulicity PLAN OF CARE VITAL SIGNS MEDICATIONS Medication Instructions Dosage Frequency Start Date End Date Duration S tatus Trulicity 0.75 MG/0.5ML Subcutaneous once weekly 0.5 ml 90 days Active RESULTS No Results PROCEDURES [...]
--- OUTSIDE RECORDS SUMMARY | 2019-11-01 20:31 | XMS REPORT ---
Author Author Nyasia RUIZ [facility] Address [address] [place] [address] Care Team Providers Care Sales And Training Specialist Name Role Phone IRVIN RUIZ Unavailable PROBLEMS Type Condition ICD9-CM Code [id number] Code Onset Dates Condition S tatus SNOMED Code Problem Essential hypertension I10 Active 36082188 Problem Type 2 diabetes mellitus without complications E11 .9 Active 14336753 Problem Costochondritis 733.6 Active 6410 9004 Problem Diabetes 250.00 Active 90598549 Problem Unspecified cardiac dysrhythmia 427.9 Active [id number] ALLERGIES No Information ENCOUNTERS Encounter Location Date Diagnosis [facility] [id number] [place] [address] Jan, [facility] [id number] [place] [address] Nov, Type 2 diabetes mellitus wit hout complications E11.9 [facility] [id number] [place] [address] Oct, [facility] [id number] [place] [address] Oct, Labia irritation N90.89 [facility] [address] [id number] [address] [place] [address] Sep, [facility] [id number] [place] [address] Sep, [facility] [id number] [place] [address] Sep, [facility] [id number] [place] [address] Aug, [place] [id number] [facility]AMED [facility] [id number] [address] [place] [address] Jul, [facility] [address] [facility] [facility] [id number] [place] [address] Jul, [facility] [address] [facility] [facility] [id number] [address] [place] [address] Mar, Type 2 diabetes mellitus wit hout complications E11.9 ; Acute pain of right knee M25.561 and Essential hypertension I10 [facility] [address] [id number] [address] [place] [address] Mar, [facility] [id number] [place] [address] Mar, Dysuria R30.0 [place] [id number] [place] [address] December, [facility] [id number] [place] [address] Nov, [facility] [address] [id number] [address] [place] [address] Nov, Dental examination Z01.20 [place] [address] [id number] [address] [place] [address] Nov, Dental examination Z01.20 [place] [address] [address] Nov, Non-intractable vomiting wit h nausea, unspecified vomiting type R11.2 ; Arthralgia, unspecified joint M25.50 ; Fever, unspecified fever cause R50.9 ; Type 2 diabetes mellitus without complications E11.9 and Tooth pain K08.89 [facility] [address] [facility] [facility] [id number] [address] [place] [address] Nov, Type 2 diabetes mellitus wit hout complications E11.9 [facility] [address] [id number] [address] [place] [address] Nov, Type 2 diabetes mellitus wit hout complications E11.9 and Bronchitis J40 [facility] [address] [id number] [address] [place] [address] Oct, Type 2 diabetes mellitus wit hout complications E11.9 [facility] [address] [id number] [address] [place] [address] Jul, [facility] [address] [id number] [address] [place] [address] Jul, Dysuria R30.0 ; Hematuria R3 1.9 and Vaginal pain R10.2 [facility] [address] [id number] [address] [place] [address] Jul, Dysuria R30.0 ; Vaginal disc harge N89.8 and Low back strain, initial encounter S39.012A [facility] [address] [id number] [address] [place] [address] Jun, Bacterial conjunctivitis of right eye H10.9 ; Sore throat J02.9 and Acute non-recurrent maxillary sinusitis J01.00 [facility] [address] [id number] [address] [place] [address] Jun, [facility] [address] [id number] [address] [place] [address] May, [facility] [address] [id number] [address] [place] [address] Apr, [facility] [address] [id number] [address] [place] [address] 14 Apr, 2016 [facility] [address] [id number] [address] [place] [address] Apr, [facility] [address] [id number] [address] [place] [address] Apr, Type 2 diabetes mellitus wit hout complications E11.9 [facility] [address] [id number] [address] [place] [address] Mar, [facility] [address] [id number] [address] [place] [address] Feb, Bronchitis J40 [facility] [address] [facility] [facility] [id number] [address] [place] [address] Feb, Bronchitis J40 [facility] [address] [facility] [facility] [id number] [address] [place] [address] Feb, Type 2 diabetes mellitus wit hout complications E11.9 [facility] [address] [facility] [facility] [id number] [address] [place] [address] Feb, [facility] [address] [facility] [id number] [address] [place] [address] Feb, [facility] [address] [facility] [id number] [address] [place] [address] Feb, Type 2 diabetes mellitus wit hout complications E11.9 and Dysuria R30.0 [place] [address] [facility] [facility] [id number] [address] [place] [address] Jan, Type 2 diabetes mellitus wit hout complications E11.9 [facility] [address] [facility] [facility] [id number] [address] [place] [address] Jan, Type 2 diabetes mellitus wit hout complications E11.9 [facility] [address] [facility] [id number] [address] [place] [address] December, Type 2 diabetes mellitus wit hout complications E11.9 [facility] [address] [facility] [facility] [id number] [address] [place] [address] Nov, Type 2 diabetes mellitus wit hout complications E11.9 [facility] [address] [facility] [facility] [id number] [address] [place] [address] Oct, Type 2 diabetes mellitus wit hout complications E11.9 ; Fever R50.9 ; Myalgia M79.1 and Cough R05 [facility] [address] [facility] [address] [facility] [id number] [address] [place] [address] 15 Sep, 2015 Dysuria R30.0 and Cystitis N 30.90 [place] [address] [id number] [address] [place] [address] Sep, [facility] [address] [facility] [facility] [id number] [address] [place] [address] Sep, [facility] [address] [id number] [address] [place] [id number] Aug, Dental examination Z01.20 [facility] [address] [address] [facility] [id number] [address] [place] [address] Aug, Type 2 diabetes mellitus wit hout complications E11.9 [facility] [address] [facility] [facility] [id number] [address] [place] [address] Jul, Dysfunction of left eustachi an tube H69.82 [facility] [address] [facility] [address] [facility] [id number] [address] [place] [address] Jun, [facility] [address] [facility] [address] [facility] [id number] [address] [place] [address] Jun, Cellulitis L03.90 [facility] [address] [facility] [address] [facility] [id number] [address] [place] [address] Jun, [facility] [address] [id number] [address] [place] [address] Jun, [facility] [address] [id number] [address] [place] [address] Jun, [facility] [address] [facility] [address] [facility] [id number] [address] [place] [address] May, Dermatofibroma of ankle, rig ht D23.71 [facility] [address] [facility] [address] [facility] [id number] [address] [place] [address] May, [facility] [address] [facility] [facility] [id number] [address] [place] [address] Apr, Diabetes 250.00 and 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 [facility] [address] [facility] [facility] [id number] [address] [place] [address] Apr, [facility] [address] [address] [facility] [id number] [address] [place] [address] Apr, [facility] [address] [address] [facility] [id number] [address] [place] [address] Apr, Diabetes 250.00 ; Influenza vaccine administered V04.81 and Allergic rhinitis 477.9 [facility] [address] [address] [facility] [id number] [address] [place] [address] Mar, [facility] [address] [facility] [address] [facility] [id number] [address] [place] [address] Jan, [facility] [address] [address] [facility] [id number] [address] [place] [address] Jan, DM w/o complication type II 250.00 [facility] [address] [facility] [address] [facility] [id number] [address] [place] [address] December, DM w/o complication type II 250.00 ; Calcaneal spur 726.73 ; Vaginitis due to Amanda 112.1 and Onychomycosis 110.1 [facility] [address] [address] [facility] [id number] [address] [place] [address] 30 Nov, 2014 Amanda infection of genital region 112.2 [facility] [address] [facility] [address] [facility] [id number] [address] [place] [address] 14 Nov, 2014 [facility] [address] [facility] [address] [facility] [id number] [address] [place] [address] Nov, [facility] [address] [facility] [address] [facility] [id number] [address] [place] [address] Oct, [facility] [address] [address] [facility] [id number] [address] [place] [address] Oct, [facility] [address] [facility] [address] [facility] [id number] [address] [place] [address] Sep, [facility] [address] [address] [facility] [id number] [address] [place] [address] Sep, [facility] [address] [id number] [address] [place] [address], [place] [address] Jul, [facility] [address] [id number] [address] [place] [address], [place] [address] Jul, [facility] [address] [id number] [address] [place] [address], [place] [address] Jun, [facility] [address] [id number] [address] [place] [address], [place] [address] Jun, [facility] [address] [id number] [address] [place] [address], [place] [address] Jun, [facility] [address] [id number] [address] [place] [address], [place] [address] Jun, [facility] [address] [id number] [address] [place] [address], [place] [address] May, [facility] [address] [id number] [address] [place] [address], [place] [address] May, [facility] [address] [id number] [address] [place] [address], [place] [address] May, [facility] [address] [id number] [address] [place] [address], [place] [address] May, [facility] [address] [id number] [address] [place] [address], [place] [address] Apr, [facility] [address] [id number] [address] [place] [address], [place] [address] Apr, [facility] [address] [id number] [address] [place] [address], [place] [address] Apr, [facility] [address] [id number] [address] [place] [address], [place] [address] Apr, [facility] [address] [id number] [address] [place] [address], [place] [address] Mar, [facility] [address] [id number] [address] [place] [address], [place] [address] Mar, [facility] [address] [id number] [facility] [place] [address] Mar, [facility] [address] [id number] [address] [place] [address], [place] [address] Mar, [facility] [address] [id number] [address] [place] [address], [place] [address] Mar, [facility] [address] [id number] [address] [place] [address], [place] [address] Mar, [facility] [address] [id number] [address] [place] [address], [place] [address] Mar, [facility] [address] [id number] [address] [place] [address], [place] [address] Mar, [facility] [address] [id number] [address] [place] [address], [place] [address] Mar, [facility] [address] [id number] [address] [place] [address], [place] [address] Mar, [facility] [address] [id number] [address] [place] [address], [place] [address] Mar, [facility] [address] [id number] [address] [place] [address], [place] [address] Mar, [facility] [address] [id number] [address] [place] [address], [place] [address] Feb, [facility] [address] [id number] [address] [place] [address], [place] [address] Feb, [facility] [address] [id number] [address] [place] [address], [place] [address] Jan, [facility] [address] [id number] [address] [place] [address], [place] [address] Jan, [facility] [address] [id number] [address] [place] [address], [place] [address] Jan, [facility] [address] [id number] [address] [place] [address], [place] [address] Jan, [facility] [address] [id number] [address] [place] [address], [place] [address] December, [facility] [address] [id number] [address] [place] [address], [place] [address] December, [facility] [address] [id number] [address] [place] [address], [place] [address] December, [facility] [address] [id number] [address] [place] [address], [place] [address] December, [facility] [address] [id number] [address] [place] [address], [place] [address] Nov, [facility] [address] [id number] [address] [place] [address], [place] [address] Nov, [facility] [address] [id number] [address] [place] [address], [place] [address] Nov, [facility] [address] [id number] [address] [place] [address], [place] [address] Nov, [facility] [address] [id number] [address] [place] [address], [place] [address] Nov, [facility] [address] [id number] [address] [place] [address], [place] [address] Nov, [facility] [address] [id number] [address] [place] [address], [place] [address] Nov, [facility] [address] [id number] [address] [place] [address], [place] [address] Oct, [facility] [address] [id number] [address] [place] [address], [place] [address] Oct, [facility] [address] [id number] [address] [place] [address], [place] [address] Oct, [facility] [address] [id number] [address] [place] [address], [place] [address] Oct, [facility] [address] [id number] [address] [place] [address], [place] [address] 13 Oct, 2013 [facility] [address] [id number] [address] [place] [address], [place] [address] Oct, [facility] [address] [id number] [address] [place] [address], [place] [address] Oct, [facility] [address] [id number] [address] [place] [address], [place] [address] 07 Sep, 2013 [facility] [address] [id number] [address] [place] [address], [place] [address] Sep, [facility] [address] [id number] [address] [place] [address], [place] [address] Sep, [facility] [address] [id number] [address] [place] [address], [place] [address] Sep, [facility] [address] [id number] [address] [place] [address], [place] [address] Aug, [facility] [address] [id number] [address] [place] [address], [place] [address] Aug, [facility] [address] [id number] [address] [place] [address], [place] [address] Aug, [facility] [address] [id number] [address] [place] [address], [place] [address] Aug, [facility] [address] [id number] [address] [place] [address] Jul, [facility] [address] [id number] [address] [place] [address], [place] [address] Jul, [facility] [address] [id number] [address] [place] [address], [place] [address] 04 Apr, 2013 [facility] [address] [id number] [address] [place] [address], [place] [address] 03 Apr, 2013 [facility] [address] [id number] [address] [place] [address], [place] [address] Mar, [facility] [address] [id number] [address] [place] [address], [place] [address] Mar, [facility] [address] [id number] [address] [place] [address], [place] [address] Mar, [facility] [address] [id number] [address] [place] [address], [place] [address] Mar, [facility] [address] [id number] [address] [place] [address], [place] [address] Mar, [facility] [address] [id number] [address] [place] [address], [place] [address] Mar, [facility] [address] [id number] [address] [place] [address], [place] [address] Mar, [facility] [address] [id number] [address] [place] [address], [place] [address] Mar, [facility] [address] [id number] [address] [place] [address], [place] [address] Mar, [facility] [address] [id number] [address] [place] [address], [place] [address] Mar, [facility] [address] [id number] [address] [place] [address], [place] [address] Feb, [facility] [address] [id number] [address] [place] [address], [place] [address] Feb, [facility] [address] [id number] [address] [place] [address], [place] [address] Feb, [facility] [address] [id number] [address] [place] [address], [place] [address] Feb, [facility] [address] [id number] [address] [place] [address], [place] [address] Jan, [facility] [address] [id number] [address] [place] [address], [place] [address] Nov, [facility] [address] [id number] [address] [place] [address], [place] [address] 16 Nov, 2012 [facility] [address] [id number] [address] [place] [address], [place] [address] 15 Nov, 2012 [facility] [address] [id number] [address] [place] [address], [place] [address] Nov, [facility] [address] [id number] [address] [place] [address], [place] [address] Oct, [facility] [address] [id number] [address] [place] [address], [place] [address] Sep, [facility] [address] [id number] [address] [place] [address], [place] [address] Sep, [facility] [address] [id number] [address] [place] [address], [place] [address] Aug, [facility] [address] [id number] [address] [place] [address], [place] [address] Jul, [facility] [address] [id number] [address] [place] [address], [place] [address] Jul, [facility] [address] [id number] [address] [place] [address], [place] [address] May, [facility] [address] [id number] [address] [place] [address], [place] [address] May, [facility] [address] [id number] [address] [place] [address], [place] [address] May, [facility] [address] [id number] [address] [place] [address], [place] [address] May, [facility] [address] [id number] [address] [place] [address], [place] [address] Apr, [facility] [address] [id number] [address] [place] [address], [place] [address] Mar, [facility] [address] [id number] [address] [place] [address], [place] [address] Mar, [facility] [address] [id number] [address] [place] [address], [place] [address] Mar, [facility] [address] [id number] [address] [place] [address], [place] [address] Mar, [facility] [address] [id number] [address] [place] [address], [place] [address] Mar, [facility] [address] [id number] [address] [place] [address], [place] [address] Mar, [facility] [address] [id number] [address] [place] [address], [place] [address] Mar, [facility] [address] [id number] [address] [place] [address], [place] [address] Mar, [facility] [address] [id number] [address] [place] [address], [place] [address] Feb, [facility] [address] [id number] [address] [place] [address], [place] [address] Feb, [facility] [address] [id number] [address] [place] [address], [place] [address] Jan, [facility] [address] [id number] [address] [place] [address], [place] [address] December, [facility] [address] [id number] [address] [place] [address], [place] [address] December, [facility] [address] [id number] [address] [place] [address], [place] [address] Nov, [facility] [address] [id number] [address] [place] [address], [place] [address] Nov, [facility] [address] [id number] [address] [place] [address], [place] [address] 18 Nov, 2011 [facility] [address] [id number] [address] [place] [address], [place] [address] Nov, [facility] [address] [id number] [address] [place] [address], [place] [address] 08 Oct, 2011 [facility] [address] [id number] [address] [place] [address], [place] [address] 29 Sep, 2011 [facility] [address] [id number] [address] [place] [address], [place] [address] 21 Sep, 2011 [facility] [address] [id number] [address] [place] [address], [place] [address] Sep, [facility] [address] [id number] [address] [place] [address], [place] [address] 17 Sep, 2011 [facility] [address] [id number] [address] [place] [address], [place] [address] 16 Sep, 2011 [facility] [address] [id number] [address] [place] [address], [place] [address] 16 Sep, 2011 [facility] [address] [id number] [address] [place] [address], [place] [address] 15 Sep, 2011 [facility] [address] [id number] [address] [place] [address], [place] [address] 15 Sep, 2011 [facility] [address] [id number] [address] [place] [address], [place] [address] Aug, [facility] [address] [id number] [address] [place] [address], [place] [address] Jul, [facility] [address] [id number] [address] [place] [address], [place] [address] Jul, [facility] [address] [id number] [address] [place] [address], [place] [address] Jul, [facility] [address] [id number] [address] [place] [address], [place] [address] Jun, [facility] [address] [id number] [address] [place] [address], [place] [address] Jul, [facility] [address] [id number] [address] [place] [address] Jul, [facility] [address] [id number] [address] [place] [address] Jul, [facility] [address] [id number] [address] [place] [address] Jul, [facility] [address] [id number] [address] [place] [address] Jul, [facility] [address] [id number] [address] [place] [address] May, [facility] [address] [id number] [address] [place] [address] May, [facility] [address] [id number] [address] [place] [address] May, [facility] [address] [id number] [address] [place] [address] Apr, [facility] [address] [id number] [address] [place] [address] Jun, [facility] [address] [id number] [address] [place] [address] Jun, [facility] [address] [id number] [address] [place] [address] May, [facility] [address] [id number] [address] [place] [address] Jan, IMMUNIZATIONS No Known Immunizations SOCIAL HISTORY Never Assessed REASON FOR VISIT glucometer and test strips PLAN OF CARE VITAL SIGNS MEDICATIONS Medication Instructions Dosage Frequency Start Date End Date Duration S tatus Blood Glucose Test Strip Contour Next 3 times a day test 3 times pe r day 8h Sep, Active Blood Glucose Monitor System w/Device Contour Next 3 times a day test 3 times per day 8h Sep, Active RESULTS No Results PROCEDURES No [...] History tumor removal left leg Hospitalization History [facility] 03/2012
--- OUTSIDE RECORDS SUMMARY | 2019-11-01 20:31 | XMS REPORT ---
Author Author Nyasia RUIZ Organization [facility] Address [address] [place] [address] Care Team Providers Care Antenna Engineer Name Role Phone IRVIN RUIZ Unavailable PROBLEMS Type Condition ICD9-CM Code [id number] Code Onset Dates Condition S tatus SNOMED Code Problem Essential hypertension I10 Active 50352815 Problem Type 2 diabetes mellitus without complications E11 .9 Active 45892792 Problem Costochondritis 733.6 Active 6410 9004 Problem Diabetes 250.00 Active 93820707 Problem Unspecified cardiac dysrhythmia 427.9 Active [id number] ALLERGIES No Information ENCOUNTERS Encounter Location Date Diagnosis [facility] [id number] [place] [address] Apr, [facility] [address] [id number] [place] [address] Mar, Type 2 diabetes mellitus wit hout complications E11.9 [facility] [id number] [place] [address] Feb, [facility] [id number] [place] [address] Jan, [facility] [address] [id number] [address] [place] [address] Nov, Type 2 diabetes mellitus wit hout complications E11.9 [facility] [address] [id number] [address] [place] [address] Oct, [facility] [address] [id number] [address] [place] [address] Oct, Labia irritation N90.89 [facility] [id number] [place] [address] Sep, [facility] [address] [facility] [id number] [address] [place] [address] Sep, [facility] [address] [id number] [address] [place] [address] Sep, [facility] [address] [facility] [id number] [address] [place] [address] Aug, [facility] [address] [facility] [id number] [address] [place] [address] Jul, [facility] [address] [facility] [id number] [address] [place] [address] Jul, [facility] [address] [facility] [id number] [address] [place] [address] Mar, Type 2 diabetes mellitus wit hout complications E11.9 ; Acute pain of right knee M25.561 and Essential hypertension I10 [facility] [address] [id number] [address] [place] [address] Mar, [facility] [address] [id number] [address] [place] [address] Mar, Dysuria R30.0 [facility] [address] [facility] [id number] [address] [place] [address] December, [facility] [address] [id number] [address] [place] [address] Nov, [facility] [address] [id number] [address] [place] [address] Nov, Dental examination Z01.20 [facility] [address] [facility] [id number] [address] [place] [address] Nov, Dental examination Z01.20 [facility] [address] [facility] [id number] [address] [place] [address] Nov, Non-intractable vomiting wit h nausea, unspecified vomiting type R11.2 ; Arthralgia, unspecified joint M25.50 ; Fever, unspecified fever cause R50.9 ; Type 2 diabetes mellitus without complications E11.9 and Tooth pain K08.89 [place] [address] [id number] [address] [place] [address] Nov, Type 2 diabetes mellitus wit hout complications E11.9 [place] [address] [id number] [address] [place] [address] Nov, Type 2 diabetes mellitus wit hout complications E11.9 and Bronchitis J40 [place] [address] [id number] [address] [place] [address] Oct, Type 2 diabetes mellitus wit hout complications E11.9 [place] [address] [facility] [id number] [address] [place] [address] Jul, [place] [address] [facility] [id number] [address] [place] [address] Jul, Dysuria R30.0 ; Hematuria R3 1.9 and Vaginal pain R10.2 [place] [address] [id number] [address] [place] [address] Jul, Dysuria R30.0 ; Vaginal disc harge N89.8 and Low back strain, initial encounter S39.012A [place] [address] [facility] [id number] [address] [place] [address] Jun, Bacterial conjunctivitis of right eye H10.9 ; Sore throat J02.9 and Acute non-recurrent maxillary sinusitis J01.00 [place] [address] [id number] [address] [place] [address] Jun, [facility] [address] [id number] [address] [place] [address] May, [place] [address] [facility] [id number] [address] [place] [address] Apr, [facility] [address] [id number] [address] [place] [address] 14 Apr, 2016 [place] [address] [id number] [address] [place] [address] Apr, [facility] [address] [id number] [address] [place] [address] Apr, Type 2 diabetes mellitus wit hout complications E11.9 [facility] [address] [id number] [address] [place] [address] Mar, [facility] [address] [id number] [address] [place] [address] Feb, Bronchitis J40 [facility] [address] [id number] [address] [place] [address] Feb, Bronchitis J40 [facility] [address] [id number] [address] [place] [address] Feb, Type 2 diabetes mellitus wit hout complications E11.9 [facility] [address] [id number] [address] [place] [address] Feb, [facility] [address] [id number] [address] [place] [address] Feb, [facility] [address] [id number] [address] [place] [address] Feb, Type 2 diabetes mellitus wit hout complications E11.9 and Dysuria R30.0 [facility] [address] [id number] [address] [place] [address] Jan, Type 2 diabetes mellitus wit hout complications E11.9 [facility] [address] [id number] [address] [place] [address] 14 Jan, 2016 Type 2 diabetes mellitus wit hout complications E11.9 [facility] [address] [id number] [address] [place] [address] December, Type 2 diabetes mellitus wit hout complications E11.9 [facility] [address] [id number] [address] [place] [address] Nov, Type 2 diabetes mellitus wit hout complications E11.9 [facility] [id number] [place] [address] Oct, Type 2 diabetes mellitus wit hout complications E11.9 ; Fever R50.9 ; Myalgia M79.1 and Cough R05 [facility] [address] [id number] [address] [place] [address] 15 Sep, 2015 Dysuria R30.0 and Cystitis N 30.90 [facility] [id number] [place] [address] Sep, [facility] [address] [address] Sep, [facility] [address] [id number] [address] [place] [id number] Aug, Dental examination Z01.20 [place] [id number] [place] [address] Aug, Type 2 diabetes mellitus wit hout complications E11.9 [place] [id number] [place] [address] Jul, Dysfunction of left eustachi an tube H69.82 [place] [id number] [place] [address] Jun, [facility] [id number] [place] [address] Jun, Cellulitis L03.90 [facility] [id number] [place] [address] Jun, [facility] [id number] [place] [address] Jun, [facility] [address] [address] Jun, [facility] [address] [id number] [address] [place] [address] May, Dermatofibroma of ankle, rig ht D23.71 [facility] [address] [id number] [address] [place] [address] May, [place] [address] [id number] 29 Apr, 2015 Diabetes 250.00 and 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 [place] [id number] [place] [address] Apr, [facility] [address] [address] Apr, [place] [address] [address] Apr, Diabetes 250.00 ; Influenza vaccine administered V04.81 and Allergic rhinitis 477.[address] [address] Mar, [place] [address] [address] Jan, [place] [address] [address] Jan, DM w/o complication type II 250.00 [place] [id number] [place] [address] December, DM w/o complication type II 250.00 ; Calcaneal spur 726.73 ; Vaginitis due to Amanda 112.1 and Onychomycosis 110.1 [place] [id number] [place] [address] 30 Nov, 2014 Amanda infection of genital region 112.[address] [address] 14 Nov, 2014 [place] [address] [id number] [address] [place] [address] 13 Nov, 2014 [place] [address] [address] Oct, [facility] [address] [id number] [address] [place] [address], [place] [address] Oct, [facility] [address] [id number] [address] [place] [address], [place] [address] Sep, [facility] [address] [id number] [address] [place] [address], [place] [address] Sep, [facility] [address] [id number] [address] [place] [address], [place] [address] Jul, [facility] [address] [id number] [address] [place] [address], [place] [address] Jul, [facility] [address] [id number] [address] [place] [address], [place] [address] Jun, [facility] [address] [id number] [address] [place] [address], [place] [address] Jun, [facility] [address] [id number] [address] [place] [address], [place] [address] Jun, [facility] [address] [id number] [address] [place] [address], [place] [address] Jun, [facility] [address] [id number] [address] [place] [address], [place] [address] May, [facility] [address] [id number] [address] [place] [address], [place] [address] May, [facility] [address] [id number] [address] [place] [address], [place] [address] May, [facility] [address] [id number] [address] [place] [address], [place] [address] May, [facility] [address] [id number] [address] [place] [address], [place] [address] Apr, [facility] [address] [id number] [address] [place] [address], [place] [address] Apr, [facility] [address] [id number] [facility] [place] [address] Apr, [facility] [address] [id number] [address] [place] [address], [place] [address] Apr, [facility] [address] [id number] [address] [place] [address], [place] [address] Mar, [facility] [address] [id number] [address] [place] [address], [place] [address] Mar, [facility] [address] [id number] [address] [place] [address], [place] [address] Mar, [facility] [address] [id number] [address] [place] [address], [place] [address] Mar, [facility] [address] [id number] [address] [place] [address], [place] [address] Mar, [facility] [address] [id number] [address] [place] [address], [place] [address] Mar, [facility] [address] [id number] [address] [place] [address], [place] [address] Mar, [facility] [address] [id number] [address] [place] [address], [place] [address] Mar, [facility] [address] [id number] [address] [place] [address], [place] [address] Mar, [facility] [address] [id number] [address] [place] [address], [place] [address] Mar, [facility] [address] [id number] [address] [place] [address], [place] [address] Mar, [facility] [address] [id number] [address] [place] [address], [place] [address] Mar, [facility] [address] [id number] [address] [place] [address], [place] [address] Feb, [facility] [address] [id number] [address] [place] [address], [place] [address] Feb, [facility] [address] [id number] [address] [place] [address], [place] [address] Jan, [facility] [address] [id number] [address] [place] [address], [place] [address] Jan, [facility] [address] [id number] [address] [place] [address], [place] [address] Jan, [facility] [address] [id number] [address] [place] [address], [place] [address] Jan, [facility] [address] [id number] [address] [place] [address], [place] [address] December, [facility] [address] [id number] [address] [place] [address], [place] [address] December, [facility] [address] [id number] [address] [place] [address], [place] [address] December, [facility] [address] [id number] [address] [place] [address], [place] [address] December, [facility] [address] [id number] [address] [place] [address], [place] [address] Nov, [facility] [address] [id number] [address] [place] [address], [place] [address] Nov, [facility] [address] [id number] [address] [place] [address], [place] [address] Nov, [facility] [address] [id number] [address] [place] [address], [place] [address] Nov, [facility] [address] [id number] [address] [place] [address], [place] [address] Nov, [facility] [address] [id number] [address] [place] [address], [place] [address] Nov, [facility] [address] [id number] [address] [place] [address], [place] [address] Nov, [facility] [address] [id number] [address] [place] [address], [place] [address] Oct, [facility] [address] [id number] [address] [place] [address], [place] [address] 31 Oct, 2013 [facility] [address] [id number] [address] [place] [address], [place] [address] Oct, [facility] [address] [id number] [address] [place] [address], [place] [address] Oct, [facility] [address] [id number] [address] [place] [address], [place] [address] Oct, [facility] [address] [id number] [address] [place] [address], [place] [address] Oct, [facility] [address] [id number] [address] [place] [address], [place] [address] Oct, [facility] [address] [id number] [address] [place] [address], [place] [address] 07 Sep, 2013 [facility] [address] [id number] [address] [place] [address], [place] [address] 07 Sep, 2013 [facility] [address] [id number] [address] [place] [address], [place] [address] Sep, [facility] [address] [id number] [address] [place] [address], [place] [address] Sep, [facility] [address] [id number] [address] [place] [address], [place] [address] Aug, [facility] [address] [id number] [address] [place] [address], [place] [address] Aug, [facility] [address] [id number] [address] [place] [address], [place] [address] Aug, [facility] [address] [id number] [address] [place] [address], [place] [address] Aug, [facility] [address] [id number] [address] [place] [address], [place] [address] Jul, [facility] [address] [id number] [address] [place] [address], [place] [address] 16 Jul, 2013 [facility] [address] [id number] [address] [place] [address], [place] [address] 04 Apr, 2013 [facility] [address] [id number] [address] [place] [address], [place] [address] Apr, [facility] [address] [id number] [address] [place] [address], [place] [address] Mar, [facility] [address] [id number] [address] [place] [address], [place] [address] Mar, [facility] [address] [id number] [address] [place] [address], [place] [address] Mar, [facility] [address] [id number] [address] [place] [address], [place] [address] Mar, [facility] [address] [id number] [address] [place] [address], [place] [address] Mar, [facility] [address] [id number] [address] [place] [address], [place] [address] Mar, [facility] [address] [id number] [address] [place] [address], [place] [address] Mar, [facility] [address] [id number] [address] [place] [address], [place] [address] Mar, [facility] [address] [id number] [address] [place] [address], [place] [address] Mar, [facility] [address] [id number] [address] [place] [address], [place] [address] Mar, [facility] [address] [id number] [address] [place] [address], [place] [address] Feb, [facility] [address] [id number] [address] [place] [address], [place] [address] Feb, [facility] [address] [id number] [address] [place] [address], [place] [address] Feb, [facility] [address] [id number] [address] [place] [address], [place] [address] 08 Feb, 2013 [facility] [address] [id number] [address] [place] [address], [place] [address] Jan, [facility] [address] [id number] [address] [place] [address], [place] [address] Nov, [facility] [address] [id number] [address] [place] [address], [place] [address] 16 Nov, 2012 [facility] [address] [id number] [address] [place] [address], [place] [address] 15 Nov, 2012 [facility] [address] [id number] [address] [place] [address], [place] [address] Nov, [facility] [address] [id number] [address] [place] [address], [place] [address] Oct, [facility] [address] [id number] [address] [place] [address], [place] [address] Sep, [facility] [address] [id number] [address] [place] [address], [place] [address] Sep, [facility] [address] [id number] [address] [place] [address], [place] [address] Aug, [facility] [address] [id number] [address] [place] [address], [place] [address] Jul, [facility] [address] [id number] [address] [place] [address], [place] [address] Jul, [facility] [address] [id number] [address] [place] [address], [place] [address] May, [facility] [address] [id number] [address] [place] [address], [place] [address] May, [facility] [address] [id number] [address] [place] [address], [place] [address] May, [facility] [address] [id number] [address] [place] [address], [place] [address] May, [facility] [address] [id number] [address] [place] [address], [place] [address] Apr, [facility] [address] [id number] [address] [place] [address], [place] [address] Mar, [facility] [address] [id number] [address] [place] [address], [place] [address] Mar, [facility] [address] [id number] [address] [place] [address], [place] [address] Mar, [facility] [address] [id number] [address] [place] [address], [place] [address] Mar, [facility] [address] [id number] [address] [place] [address], [place] [address] Mar, [facility] [address] [id number] [address] [place] [address], [place] [address] Mar, [facility] [address] [id number] [address] [place] [address], [place] [address] Mar, [facility] [address] [id number] [address] [place] [address], [place] [address] Mar, [facility] [address] [id number] [address] [place] [address], [place] [address] Feb, [facility] [address] [id number] [address] [place] [address], [place] [address] Feb, [facility] [address] [id number] [address] [place] [address], [place] [address] Jan, [facility] [address] [id number] [address] [place] [address], [place] [address] December, [facility] [address] [id number] [address] [place] [address], [place] [address] December, [facility] [address] [id number] [address] [place] [address], [place] [address] Nov, [facility] [address] [id number] [address] [place] [address], [place] [address] 19 Nov, 2011 [facility] [address] [id number] [address] [place] [address], [place] [address] 18 Nov, 2011 [facility] [address] [id number] [address] [place] [address], [place] [address] 10 Nov, 2011 [facility] [address] [id number] [address] [place] [address], [place] [address] 08 Oct, 2011 [facility] [address] [id number] [address] [place] [address], [place] [address] 29 Sep, 2011 [facility] [address] [id number] [address] [place] [address], [place] [address] 21 Sep, 2011 [facility] [address] [id number] [address] [place] [address], [place] [address] 17 Sep, 2011 [facility] [address] [id number] [address] [place] [address], [place] [address] 17 Sep, 2011 [facility] [address] [id number] [address] [place] [address], [place] [phone] 16 Sep, 2011 [facility] [address] [id number] [address] [place] [address], [place] [phone] 16 Sep, 2011 [facility] [address] [id number] [address] [place] [address], [place] [address] 15 Sep, 2011 [facility] [address] [id number] [address] [place] [address], [place] [phone] 15 Sep, 2011 [facility] [address] [id number] [address] [place] [address], [place] [address] Aug, [facility] [address] [id number] [address] [place] [address], [place] [address] Jul, [facility] [address] [id number] [address] [place] [address], [place] [address] Jul, [facility] [address] [id number] [address] [place] [phone] 14 Jul, 2011 [facility] [address] [id number] [address] [place] [phone] 08 Jun, 2011 [facility] [address] [id number] [address] [place] [phone] Jul, [facility] [address] [id number] [address] [place] [phone] Jul, [facility] [address] [id number] [address] [place] [phone] 16 Jul, 2010 [facility] [address] [id number] [address] [place] [phone] Jul, [facility] [address] [id number] [address] [place] [phone] Jul, [facility] [address] [id number] [address] [place] [phone] May, [facility] [address] [id number] [address] [place] [phone] May, [facility] [address] [id number] [address] [place] [phone] May, [facility] [address] [id number] [address] [place] [phone] 15 Apr, 2010 [facility] [address] [id number] [address] [place] [phone] Jun, [facility] [address] [id number] [address] [place] [phone] Jun, [facility] [address] [id number] [address] [place] [phone] 27 May, 2009 [facility] [address] [id number] [address] [place] [phone] 16 Jan, 2009 IMMUNIZATIONS No Known Immunizations [...] History tumor removal left leg Hospitalization History [facility] 03/2012
--- OUTSIDE RECORDS SUMMARY | 2019-11-01 20:31 | XMS REPORT ---
Author Author Nyasia LE Organization [employer] Address Unknown Phone Unavailable Care Team Providers Care Boring Machine Operator Name Role Phone KELSEY LE CP Unavailable Allergies, Adverse Reactions, Alerts Substance [...] E11.9 Active Problem Costochondritis 733.6 Active Assessment Dental examination Z01.20 Active Medications Medication Code System Code Instructions Start Date End Date Status Dosage GlipiZIDE ER [facility] [address]-18 5 MG Orally 2 times a day please vouc her TAKE ONE TABLET BY MOUTH TWICE DAILY Actos [facility] [address]-97 30 MG Orally Once a day samples Apr 25 015 1 tablet Januvia [facility] [address]-13 100 MG Once a day please voucher Apr 21, 2014 1 Tablet by Oral route 1 time per day Atenolol [facility] [address]-68 50 MG please voucher TAKE ONE TABLET BY MOUTH DAILY Procedures Procedure Coding System Code Date INTRAORL-PERIAPICAL 1 FILM 76716 CPT-4 D0220 Aug 14, 2015 BITEWING - SINGLE FILM CPT-4 D0270 Aug 14, 2 016 LTD ORAL EVALUATION - PROBLEM FOCUS CPT-4 D0140 Aug 14, 2015 Vital Signs Date/Time: Aug 14, 2015 Blood Pressure Diastolic 75 mmHg Blood Pressure Systolic 132 mmHg Results No Known Results Summary Purpose [employer] Submission
--- OUTSIDE RECORDS SUMMARY | 2019-11-01 20:31 | XMS REPORT ---
Author Author Nyasia RUIZ Organization [employer] Address Unknown Phone Unavailable Care Team Providers Care [employer] Teacher Name Role Phone IRVIN RUIZ CP Unavailable Allergies, Adverse Reactions, Alerts Substance Reaction Event Type Metformin HCl Info Not Available Drug Allergy Glucotrol XL Info Not Available Drug Allergy Doxycycline Hyclate nausea Drug Allergy Problems Problem Type Condition Code Onset Dates Condition Statu s Problem Diabetes 250.00 Active Problem Unspecified cardiac dysrhythmia 427.9 Active Problem Type 2 diabetes mellitus without complications E11.9 Active Problem Costochondritis 733.6 Active Assessment Type 2 diabetes mellitus without complications E11.9 Active Medications Medication Code System Code Instructions Start Date End Date Status Dosage Atenolol [facility] [address]-70 50 MG Orally Once a day 1 tablet ProAir HFA [facility] [address]-52 108 (90 Base) MCG/ACT Inhalation every 4 hrs 2 puffs as needed GlipiZIDE ER [facility] [address]-27 10 MG Orally 2 times a day 1 tablet Januvia [facility] [address]-82 100 MG Once a day please voucher Apr 21, 2014 1 Tablet by Oral route 1 time per day Blood Glucose Test Strip [facility] 0 Blood Glucose Once a day Samples Sep 15, 2015 test blood sugar Actos [facility] [address]-56 30 MG Orally Once a day samples Apr 25, 015 1 tablet Procedures Procedure Coding System Code Date Office Visit, Est Pt., Level 3 CPT-4 27767 S ept 2015 Vital Signs Date/Time: Apr 22, 2016 Cardiac Monitoring Heart Rate 84 bpm Weight 206.2 lbs Height 63 in BMI 36.52 Index Blood Pressure Diastolic 78 mmHg Blood Pressure Systolic 116 mmHg Results No Known Results Summary Purpose [employer] Submission
--- OUTSIDE RECORDS SUMMARY | 2019-11-01 20:32 | XMS REPORT ---
Author Author Nyasia RUIZ Organization [employer] Address Unknown Phone Unavailable Care Team Providers Care Intake Clerk Name Role Phone IRVIN RUIZ CP Unavailable Allergies, Adverse Reactions, Alerts Substance Reaction Event Type Metformin HCl Info Not Available Drug Allergy Glucotrol XL Info Not Available Drug Allergy Doxycycline Hyclate Info Not Available Drug Allergy Problems Problem Type Condition Code Onset Dates Condition Statu s Problem Unspecified cardiac dysrhythmia 427.9 Active Problem Costochondritis 733.6 Active Problem Diabetes 250.00 Active Assessment Diabetes 250.00 Active Assessment 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 Active Medications Medication Code System Code Instructions Start Date End Date Status Dosage Atenolol [facility] [address]-03 50 MG Orally Once a day 1 tablet Actos [facility] [address]-72 30 MG Orally Once a day samples Apr 25 015 1 tablet GlipiZIDE ER [facility] [address]-85 5 MG Orally TAKE ONE TABLET BY MOUTH TWICE DAILY Bactrim DS [facility] [address]-38 800-160 MG Orally 2 times a day S ept 2014May 16, 2015 1 tablet ZyrTEC [facility] [address]-61 10 MG Orally Once a day samples S ept 2014May 25, 2015 1 tablet as needed Januvia [facility] [address]-04 100 MG Once a day Apr 21, 2014 1 Tablet by Oral route 1 time per day Procedures Procedure Coding System Code Date Office Visit, Est Pt., Level 3 CPT-4 37630 S ept 2014 Vital Signs Date/Time: May 09, 2015 Temperature 97.6 F Weight 197.5 lbs Height 63 in BMI 34.98 Index Blood Pressure Diastolic 76 mmHg Blood Pressure Systolic 126 mmHg Cardiac Monitoring Heart Rate 78 bpm Results No Known Results Summary Purpose [employer] Submission
--- OUTSIDE RECORDS SUMMARY | 2019-11-01 20:32 | XMS REPORT ---
Author Author Nyasia RUIZ [facility] Address [address] [place] [address] Care Team Providers Care [employer] Level Five Name Role Phone IRVIN RUIZ Unavailable PROBLEMS Type Condition ICD9-CM Code CDW10-LR Code Onset Dates Condition S tatus SNOMED Code Problem Essential hypertension I10 Active 29478929 Problem Type 2 diabetes mellitus without complications E11 .9 Active 18654183 Problem Costochondritis 733.6 Active 6410 9004 Problem Diabetes 250.00 Active 68991343 Problem Unspecified cardiac dysrhythmia 427.9 Active [id number] ALLERGIES No Information ENCOUNTERS Encounter Location Date Diagnosis [facility] [address] [id number] [address] [place] [id number] Jan, [facility] [address] [id number] [address] [place] [phone] Nov, Type 2 diabetes mellitus wit hout complications E11.9 [facility] [address] [id number] [address] [place] [address] Oct, [facility] [address] [id number] [address] [place] [address] Oct, Labia irritation N90.89 [facility] [address] [id number] [address] [place] [phone] Sep, [facility] [address] [id number] [address] [place] [address] Sep, [facility] [address] [id number] [address] [place] [address] Sep, [facility] [address] [id number] [address] [place] [phone] Aug, [place] [id number] [facility] [id number] [address] [place] [phone] Jul, [facility] [address] [facility] [id number] [place] [address] Jul, [facility] [address] [facility] [id number] [address] [place] [address] Mar, Type 2 diabetes mellitus wit hout complications E11.9 ; Acute pain of right knee M25.561 and Essential hypertension I10 [facility] [address] [id number] [address] [place] [phone] Mar, [facility] [id number] [place] [address] Mar, Dysuria R30.0 [place] [id number] [place] [address] December, [facility] [id number] [place] [address] Nov, [facility] [address] [id number] [address] [place] [address] Nov, Dental examination Z01.20 [place] [address] [id number] [address] [place] [address] Nov, Dental examination Z01.20 [place] [address] [address] Nov, Non-intractable vomiting wit h nausea, unspecified vomiting type R11.2 ; Arthralgia, unspecified joint M25.50 ; Fever, unspecified fever cause R50.9 ; Type 2 diabetes mellitus without complications E11.9 and Tooth pain K08.89 [facility] [address] [facility] [id number] [address] [place] [phone] Nov, Type 2 diabetes mellitus wit hout complications E11.9 [facility] [address] [id number] [address] [place] [address] Nov, Type 2 diabetes mellitus wit hout complications E11.9 and Bronchitis J40 [facility] [address] [id number] [address] [place] [id number] Oct, Type 2 diabetes mellitus wit hout complications E11.9 [facility] [address] [id number] [address] [place] [id number] Jul, [facility] [address] [id number] [address] [place] [id number] Jul, Dysuria R30.0 ; Hematuria R3 1.9 and Vaginal pain R10.2 [facility] [address] [id number] [address] [place] [phone] Jul, Dysuria R30.0 ; Vaginal disc harge N89.8 and Low back strain, initial encounter S39.012A [facility] [address] [id number] [address] [place] [phone] Jun, Bacterial conjunctivitis of right eye H10.9 ; Sore throat J02.9 and Acute non-recurrent maxillary sinusitis J01.00 [facility] [address] [id number] [address] [place] [phone] Jun, [facility] [address] [id number] [address] [place] [phone] May, [facility] [address] [id number] [address] [place] [id number] Apr, [facility] [address] [id number] [address] [place] [id number] 14 Apr, 2016 [facility] [address] [id number] [address] [place] [phone] Apr, [facility] [address] [id number] [address] [place] [id number] Apr, Type 2 diabetes mellitus wit hout complications E11.9 [facility] [address] [id number] [address] [place] [phone] Mar, [facility] [address] [id number] [address] [place] [id number] Feb, Bronchitis J40 [facility] [address] [facility] [id number] [address] [place] [id number] Feb, Bronchitis J40 [facility] [address] [facility] [id number] [address] [place] [id number] Feb, Type 2 diabetes mellitus wit hout complications E11.9 [facility] [address] [facility] [id number] [address] [place] [phone] Feb, [facility] [address] [facility] [id number] [address] [place] [phone] Feb, [facility] [address] [facility] [id number] [address] [place] [id number] Feb, Type 2 diabetes mellitus wit hout complications E11.9 and Dysuria R30.0 [place] [address] [facility] [id number] [address] [place] [phone] Jan, Type 2 diabetes mellitus wit hout complications E11.9 [facility] [address] [facility] [id number] [address] [place] [phone] Jan, Type 2 diabetes mellitus wit hout complications E11.9 [facility] [address] [facility] [id number] [address] [place] [phone] December, Type 2 diabetes mellitus wit hout complications E11.9 [facility] [address] [facility] [id number] [address] [place] [id number] Nov, Type 2 diabetes mellitus wit hout complications E11.9 [facility] [address] [facility] [id number] [address] [place] [phone] Oct, Type 2 diabetes mellitus wit hout complications E11.9 ; Fever R50.9 ; Myalgia M79.1 and Cough R05 [facility] [address] [facility] [id number] [address] [place] [phone] 15 Sep, 2015 Dysuria R30.0 and Cystitis N 30.90 [place] [address] [id number] [address] [place] [phone] Sep, [facility] [address] [facility] [id number] [address] [place] [phone] Sep, [facility] [address] [id number] [address] [place] [id number] Aug, Dental examination Z01.20 [facility] [address] [facility] [id number] [address] [place] [phone] Aug, Type 2 diabetes mellitus wit hout complications E11.9 [facility] [address] [facility] [id number] [address] [place] [phone] Jul, Dysfunction of left eustachi an tube H69.82 [facility] [address] [facility] [id number] [address] [place] [phone] Jun, [facility] [address] [facility] [id number] [address] [place] [id number] Jun, Cellulitis L03.90 [facility] [address] [facility] [id number] [address] [place] [phone] Jun, [facility] [address] [id number] [address] [place] [id number] Jun, [facility] [address] [id number] [address] [place] [id number] Jun, [facility] [address] [facility] [id number] [address] [place] [phone] May, Dermatofibroma of ankle, rig ht D23.71 [facility] [address] [facility] [id number] [address] [place] [id number] May, [facility] [address] [facility] [id number] [address] [place] [phone] Apr, Diabetes 250.00 and 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 [facility] [address] [facility] [id number] [address] [place] [id number] Apr, [facility] [address] [facility] [id number] [address] [place] [id number] Apr, [facility] [address] [facility] [id number] [address] [place] [id number] Apr, Diabetes 250.00 ; Influenza vaccine administered V04.81 and Allergic rhinitis 477.9 [facility] [address] [facility] [id number] [address] [place] [phone] Mar, [facility] [address] [facility] [id number] [address] [place] [phone] Jan, [facility] [address] [facility] [id number] [address] [place] [id number] Jan, DM w/o complication type II 250.00 [facility] [address] [facility] [id number] [address] [place] [phone] December, DM w/o complication type II 250.00 ; Calcaneal spur 726.73 ; Vaginitis due to Amanda 112.1 and Onychomycosis 110.1 [facility] [address] [facility] [id number] [address] [place] [id number] 30 Nov, 2014 Amanda infection of genital region 112.2 [facility] [address] [facility] [id number] [address] [place] [id number] 14 Nov, 2014 [facility] [address] [facility] [id number] [address] [place] [phone] Nov, [facility] [address] [facility] [id number] [address] [place] [id number] Oct, [facility] [address] [facility] [id number] [address] [place] [phone] Oct, [facility] [address] [facility] [id number] [address] [place] [phone] Sep, [facility] [address] [facility] [id number] [address] [place] [id number] Sep, [facility] [address] [id number] [address] [place] [address], [place] [address] Jul, [facility] [address] [id number] [address] [place] [address], [place] [address] Jul, [facility] [address] [id number] [address] [place] [address], [place] [address] Jun, [facility] [address] [id number] [address] [place] [address], [place] [address] Jun, [facility] [address] [id number] [address] [place] [address], [place] [address] Jun, [facility] [address] [id number] [address] [place] [address], [place] [address] Jun, [facility] [address] [id number] [address] [place] [address], [place] [address] May, [facility] [address] [id number] [address] [place] [address], [place] [address] May, [facility] [address] [id number] [address] [place] [address], [place] [address] May, [facility] [address] [id number] [address] [place] [address], [place] [address] May, [facility] [address] [id number] [address] [place] [address], [place] [address] Apr, [facility] [address] [id number] [address] [place] [address], [place] [address] Apr, [facility] [address] [id number] [address] [place] [address], [place] [address] Apr, [facility] [address] [id number] [address] [place] [address], [place] [address] Apr, [facility] [address] [id number] [address] [place] [address], [place] [address] Mar, [facility] [address] [id number] [address] [place] [address], [place] [address] Mar, [facility] [address] [id number] [facility] [place] [address] Mar, [facility] [address] [id number] [address] [place] [address], [place] [address] Mar, [facility] [address] [id number] [address] [place] [address], [place] [address] Mar, [facility] [address] [id number] [address] [place] [address], [place] [address] Mar, [facility] [address] [id number] [address] [place] [address], [place] [address] Mar, [facility] [address] [id number] [address] [place] [address], [place] [address] Mar, [facility] [address] [id number] [address] [place] [address], [place] [address] Mar, [facility] [address] [id number] [address] [place] [address], [place] [address] Mar, [facility] [address] [id number] [address] [place] [address], [place] [address] Mar, [facility] [address] [id number] [address] [place] [address], [place] [address] Mar, [facility] [address] [id number] [address] [place] [address], [place] [address] Feb, [facility] [address] [id number] [address] [place] [address], [place] [address] Feb, [facility] [address] [id number] [address] [place] [address], [place] [address] Jan, [facility] [address] [id number] [address] [place] [address], [place] [address] Jan, [facility] [address] [id number] [address] [place] [address], [place] [address] Jan, [facility] [address] [id number] [address] [place] [address], [place] [address] Jan, [facility] [address] [id number] [address] [place] [address], [place] [address] December, [facility] [address] [id number] [address] [place] [address], [place] [address] December, [facility] [address] [id number] [address] [place] [address], [place] [address] December, [facility] [address] [id number] [address] [place] [address], [place] [address] December, [facility] [address] [id number] [address] [place] [address], [place] [address] Nov, [facility] [address] [id number] [address] [place] [address], [place] [address] Nov, [facility] [address] [id number] [address] [place] [address], [place] [address] Nov, [facility] [address] [id number] [address] [place] [address], [place] [address] Nov, [facility] [address] [id number] [address] [place] [address], [place] [address] Nov, [facility] [address] [id number] [address] [place] [address], [place] [address] Nov, [facility] [address] [id number] [address] [place] [address], [place] [address] Nov, [facility] [address] [id number] [address] [place] [address], [place] [address] Oct, [facility] [address] [id number] [address] [place] [address], [place] [address] Oct, [facility] [address] [id number] [address] [place] [address], [place] [address] Oct, [facility] [address] [id number] [address] [place] [address], [place] [address] Oct, [facility] [address] [id number] [address] [place] [address], [place] [address] 13 Oct, 2013 [facility] [address] [id number] [address] [place] [address], [place] [address] Oct, [facility] [address] [id number] [address] [place] [address], [place] [address] Oct, [facility] [address] [id number] [address] [place] [address], [place] [address] 07 Sep, 2013 [facility] [address] [id number] [address] [place] [address], [place] [address] Sep, [facility] [address] [id number] [address] [place] [address], [place] [address] Sep, [facility] [address] [id number] [address] [place] [address], [place] [address] Sep, [facility] [address] [id number] [address] [place] [address], [place] [address] Aug, [facility] [address] [id number] [address] [place] [address], [place] [address] Aug, [facility] [address] [id number] [address] [place] [address], [place] [address] Aug, [facility] [address] [id number] [address] [place] [address], [place] [address] Aug, [facility] [address] [id number] [address] [place] [address] Jul, [facility] [address] [id number] [address] [place] [address], [place] [address] Jul, [facility] [address] [id number] [address] [place] [address], [place] [address] 04 Apr, 2013 [facility] [address] [id number] [address] [place] [address], [place] [address] 03 Apr, 2013 [facility] [address] [id number] [address] [place] [address], [place] [address] Mar, [facility] [address] [id number] [address] [place] [address], [place] [address] Mar, [facility] [address] [id number] [address] [place] [address], [place] [address] Mar, [facility] [address] [id number] [address] [place] [address], [place] [address] Mar, [facility] [address] [id number] [address] [place] [address], [place] [address] Mar, [facility] [address] [id number] [address] [place] [address], [place] [address] Mar, [facility] [address] [id number] [address] [place] [address], [place] [address] Mar, [facility] [address] [id number] [address] [place] [address], [place] [address] Mar, [facility] [address] [id number] [address] [place] [address], [place] [address] Mar, [facility] [address] [id number] [address] [place] [address], [place] [address] Mar, [facility] [address] [id number] [address] [place] [address], [place] [address] Feb, [facility] [address] [id number] [address] [place] [address], [place] [address] Feb, [facility] [address] [id number] [address] [place] [address], [place] [address] Feb, [facility] [address] [id number] [address] [place] [address], [place] [address] Feb, [facility] [address] [id number] [address] [place] [address], [place] [address] Jan, [facility] [address] [id number] [address] [place] [address], [place] [address] Nov, [facility] [address] [id number] [address] [place] [address], [place] [address] 16 Nov, 2012 [facility] [address] [id number] [address] [place] [address], [place] [address] 15 Nov, 2012 [facility] [address] [id number] [address] [place] [address], [place] [address] Nov, [facility] [address] [id number] [address] [place] [address], [place] [address] Oct, [facility] [address] [id number] [address] [place] [address], [place] [address] Sep, [facility] [address] [id number] [address] [place] [address], [place] [address] Sep, [facility] [address] [id number] [address] [place] [address], [place] [address] Aug, [facility] [address] [id number] [address] [place] [address], [place] [address] Jul, [facility] [address] [id number] [address] [place] [address], [place] [address] Jul, [facility] [address] [id number] [address] [place] [address], [place] [address] May, [facility] [address] [id number] [address] [place] [address], [place] [address] May, [facility] [address] [id number] [address] [place] [address], [place] [address] May, [facility] [address] [id number] [address] [place] [address], [place] [address] May, [facility] [address] [id number] [address] [place] [address], [place] [address] Apr, [facility] [address] [id number] [address] [place] [address], [place] [address] Mar, [facility] [address] [id number] [address] [place] [address], [place] [address] Mar, [facility] [address] [id number] [address] [place] [address], [place] [address] Mar, [facility] [address] [id number] [address] [place] [address], [place] [address] Mar, [facility] [address] [id number] [address] [place] [address], [place] [address] Mar, [facility] [address] [id number] [address] [place] [address], [place] [address] Mar, [facility] [address] [id number] [address] [place] [address], [place] [address] Mar, [facility] [address] [id number] [address] [place] [address], [place] [address] Mar, [facility] [address] [id number] [address] [place] [address], [place] [address] Feb, [facility] [address] [id number] [address] [place] [address], [place] [address] Feb, [facility] [address] [id number] [address] [place] [address], [place] [address] Jan, [facility] [address] [id number] [address] [place] [address], [place] [address] December, [facility] [address] [id number] [address] [place] [address], [place] [address] December, [facility] [address] [id number] [address] [place] [address], [place] [address] Nov, [facility] [address] [id number] [address] [place] [address], [place] [address] Nov, [facility] [address] [id number] [address] [place] [address], [place] [address] 18 Nov, 2011 [facility] [address] [id number] [address] [place] [address], [place] [address] Nov, [facility] [address] [id number] 96 [place] [address], [place] [address] 08 Oct, 2011 [facility] [address] [id number] [address] [place] [address], [place] [address] 29 Sep, 2011 [facility] [address] [id number] [address] [place] [address], [place] [address] 21 Sep, 2011 [facility] [address] [id number] [address] [place] [address], [place] [address] Sep, [facility] [address] [id number] [address] [place] [address], [place] [address] 17 Sep, 2011 [facility] [address] [id number] [address] [place] [address], [place] [address] 16 Sep, 2011 [facility] [address] [id number] [address] [place] [address], [place] [address] 16 Sep, 2011 [facility] [address] [id number] [address] [place] [address], [place] [address] 15 Sep, 2011 [facility] [address] [id number] [address] [place] [address], [place] [address] 15 Sep, 2011 [facility] [address] [id number] [address] [place] [address], [place] [address] Aug, [facility] [address] [id number] [address] [place] [address], [place] [address] Jul, [facility] [address] [id number] [address] [place] [address], [place] [address] Jul, [facility] [address] [id number] [address] [place] [address], [place] [address] Jul, [facility] [address] [id number] [address] [place] [address], [place] [address] Jun, [facility] [address] [id number] [address] [place] [address], [place] [address] Jul, [facility] [address] [id number] [address] [place] [id number] Jul, [facility] [address] [id number] [address] [place] [id number] Jul, [facility] [address] [id number] [address] [place] [phone] Jul, [facility] [address] [id number] [address] [place] [id number] Jul, [facility] [address] [id number] [address] [place] [phone] May, [facility] [address] [id number] [address] [place] [phone] May, [facility] [address] [id number] [address] [place] [phone] May, [facility] [address] [id number] [address] [place] [id number] Apr, [facility] [address] [id number] [address] [place] [phone] Jun, [facility] [address] [id number] [address] [place] [phone] Jun, [facility] [address] [id number] [address] [place] [phone] May, [facility] [address] [id number] [address] [place] [phone] Jan, IMMUNIZATIONS No Known Immunizations SOCIAL HISTORY Never Assessed [facility] PLAN OF CARE VITAL SIGNS MEDICATIONS Unknown [...]
--- OUTSIDE RECORDS SUMMARY | 2019-11-01 20:32 | XMS REPORT ---
Author Author Nyasia RUIZ Organization [facility] Address [address] [place] [address] Care Team Providers Care Leaf Size Picker Name Role Phone IRVIN RUIZ Unavailable PROBLEMS Type Condition ICD9-CM Code RXI41-NS Code Onset Dates Condition S tatus SNOMED Code Problem Essential hypertension I10 Active 82000337 Problem Type 2 diabetes mellitus without complications E11 .9 Active 49090844 Problem Costochondritis 733.6 Active 6410 9004 Problem Diabetes 250.00 Active 31492297 Problem Unspecified cardiac dysrhythmia 427.9 Active [id number] ALLERGIES No Information ENCOUNTERS Encounter Location Date Diagnosis [facility] [address] [id number] [address] [place] [address] Nov, Type 2 diabetes mellitus wit hout complications E11.9 [facility] [address] [facility] [id number] [address] [place] [address] Oct, [facility] [address] [id number] [address] [place] [address] Oct, Labia irritation N90.89 [facility] [address] [id number] [address] [place] [address] Sep, [facility] [address] [facility] [id number] [address] [place] [address] Sep, [facility] [address] [facility] [id number] [address] [place] [address] Sep, [facility] [address] [id number] [address] [place] [address] Aug, [facility] [id number] [address] [place] [address] Jul, [place] [address] [address] Jul, [place] [address] [address] Mar, Type 2 diabetes mellitus wit hout complications E11.9 ; Acute pain of right knee M25.561 and Essential hypertension I10 [place] [address] [address] Mar, [place] [address] [address] Mar, Dysuria R30.0 [place] [address] [address] December, [place] [address] [address] Nov, [place] [address] [address] Nov, Dental examination Z01.20 [place] [address] [address] Nov, Dental examination Z01.20 [place] [address] [address] Nov, Non-intractable vomiting wit h nausea, unspecified vomiting type R11.2 ; Arthralgia, unspecified joint M25.50 ; Fever, unspecified fever cause R50.9 ; Type 2 diabetes mellitus without complications E11.9 and Tooth pain K08.89 [place] [address] [address] Nov, Type 2 diabetes mellitus wit hout complications E11.9 [place] [address] [address] Nov, Type 2 diabetes mellitus wit hout complications E11.9 and Bronchitis J40 [place] [address] [address] Oct, Type 2 diabetes mellitus wit hout complications E11.9 [facility] [address] [id number] [address] [place] [address] Jul, [facility] [address] [id number] [address] [place] [address] Jul, Dysuria R30.0 ; Hematuria R3 1.9 and Vaginal pain R10.2 [facility] [address] [id number] [address] [place] [address] Jul, Dysuria R30.0 ; Vaginal disc harge N89.8 and Low back strain, initial encounter S39.012A [facility] [address] [id number] [address] [place] [address] Jun, Bacterial conjunctivitis of right eye H10.9 ; Sore throat J02.9 and Acute non-recurrent maxillary sinusitis J01.00 [facility] [address] [id number] [address] [place] [address] Jun, [facility] [address] [id number] [address] [place] [address] May, [facility] [address] [id number] [address] [place] [address] Apr, [facility] [address] [id number] [address] [place] [address] Apr, [facility] [address] [id number] [address] [place] [address] Apr, [facility] [address] [id number] [address] [place] [address] Apr, Type 2 diabetes mellitus wit hout complications E11.9 [facility] [address] [id number] [address] [place] [address] Mar, [facility] [address] [id number] [address] [place] [address] Feb, Bronchitis J40 [facility] [address] [id number] [address] [place] [address] Feb, Bronchitis J40 [facility] [id number] [place] [address] Feb, Type 2 diabetes mellitus wit hout complications E11.9 [facility] [address] [id number] [address] [place] [address] Feb, [facility] [id number] [place] [address] Feb, [facility] [address] [id number] [address] [place] [address] Feb, Type 2 diabetes mellitus wit hout complications E11.9 and Dysuria R30.0 [facility] [address] [id number] [address] [place] [address] Jan, Type 2 diabetes mellitus wit hout complications E11.9 [facility] [address] [address] Jan, Type 2 diabetes mellitus wit hout complications E11.9 [facility] [address] [address] December, Type 2 diabetes mellitus wit hout complications E11.9 [facility] [address] [id number] [address] [place] [address] Nov, Type 2 diabetes mellitus wit hout complications E11.9 [facility] [id number] [place] [address] Oct, Type 2 diabetes mellitus wit hout complications E11.9 ; Fever R50.9 ; Myalgia M79.1 and Cough R05 [facility] [address] [id number] [address] [place] [address] 15 Sep, 2015 Dysuria R30.0 and Cystitis N 30.90 [facility] [address] [id number] [address] [place] [address] 05 Sep, 2015 [place] [address] [id number] [address] [place] [address] Sep, [facility] [address] [id number] [address] [place] [id number] Aug, Dental examination Z01.20 [facility] [address] [facility] [id number] [address] [place] [address] Aug, Type 2 diabetes mellitus wit hout complications E11.9 [facility] [address] [facility] [id number] [address] [place] [address] Jul, Dysfunction of left eustachi an tube H69.82 [facility] [address] [facility] [id number] [address] [place] [address] Jun, [facility] [address] [facility] [id number] [address] [place] [address] Jun, Cellulitis L03.90 [facility] [address] [facility] [id number] [address] [place] [address] Jun, [facility] [address] [facility] [id number] [address] [place] [address] Jun, [facility] [address] [id number] [address] [place] [address] Jun, [facility] [address] [facility] [id number] [address] [place] [address] May, Dermatofibroma of ankle, rig ht D23.71 [facility] [address] [facility] [id number] [address] [place] [address] May, [facility] [address] [facility] [id number] [address] [place] [address] 29 Apr, 2015 Diabetes 250.00 and 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 [facility] [address] [facility] [id number] [address] [place] [address] Apr, [facility] [address] [id number] [address] [place] [address] Apr, [facility] [address] [facility] [id number] [address] [place] [address] Apr, Diabetes 250.00 ; Influenza vaccine administered V04.81 and Allergic rhinitis 477.9 [facility] [address] [facility] [id number] [address] [place] [address] Mar, [facility] [address] [address] Jan, [facility] [address] [id number] [address] [place] [address] Jan, DM w/o complication type II 250.00 [facility] [id number] [place] [address] December, DM w/o complication type II 250.00 ; Calcaneal spur 726.73 ; Vaginitis due to Amanda 112.1 and Onychomycosis 110.1 [facility] [id number] [place] [address] 30 Nov, 2014 Amanda infection of genital region 112.2 [facility] [id number] [place] [address] 14 Nov, 2014 [facility] [address] [id number] [address] [place] [address] Nov, [facility] [id number] [place] [address] Oct, [facility] [address] [id number] [address] [place] [address] Oct, [facility] [id number] [place] [address] Sep, [facility] [address] [id number] [address] [place] [address] Sep, [facility] [id number] [place] [address] Jul, [facility] [address] [id number] [address] [place] [address], [place] [address] Jul, [facility] [address] [id number] [address] [place] [address], [place] [address] Jun, [facility] [address] [id number] [address] [place] [address], [place] [address] Jun, [facility] [address] [id number] [address] [place] [address], [place] [address] Jun, [facility] [address] [id number] [address] [place] [address], [place] [address] Jun, [facility] [address] [id number] [address] [place] [address], [place] [address] May, [facility] [address] [id number] [address] [place] [address], [place] [address] May, [facility] [address] [id number] [address] [place] [address], [place] [address] May, [facility] [address] [id number] [address] [place] [address], [place] [address] May, [facility] [address] [id number] [address] [place] [address], [place] [address] Apr, [facility] [address] [id number] [address] [place] [address], [place] [address] Apr, [facility] [address] [id number] [address] [place] [address], [place] [address] Apr, [facility] [address] [id number] [address] [place] [address], [place] [address] Apr, [facility] [address] [id number] [address] [place] [address], [place] [address] Mar, [facility] [address] [id number] [address] [place] [address], [place] [address] Mar, [facility] [address] [id number] [address] [place] [address], [place] [address] Mar, [facility] [address] [id number] [facility] [place] [address] Mar, [facility] [address] [id number] [address] [place] [address], [place] [address] Mar, [facility] [address] [id number] [address] [place] [address], [place] [address] Mar, [facility] [address] [id number] [address] [place] [address], [place] [address] Mar, [facility] [address] [id number] [address] [place] [address], [place] [address] Mar, [facility] [address] [id number] [address] [place] [address], [place] [address] Mar, [facility] [address] [id number] [address] [place] [address], [place] [address] Mar, [facility] [address] [id number] [address] [place] [address], [place] [address] Mar, [facility] [address] [id number] [address] [place] [address], [place] [address] Mar, [facility] [address] [id number] [address] [place] [address], [place] [address] Feb, [facility] [address] [id number] [address] [place] [address], [place] [address] Feb, [facility] [address] [id number] [address] [place] [address], [place] [address] Jan, [facility] [address] [id number] [address] [place] [address], [place] [address] Jan, [facility] [address] [id number] [address] [place] [address], [place] [address] Jan, [facility] [address] [id number] [address] [place] [address], [place] [address] Jan, [facility] [address] [id number] [facility] [place] [address] December, [facility] [address] [id number] [address] [place] [address], [place] [address] December, [facility] [address] [id number] [address] [place] [address], [place] [address] December, [facility] [address] [id number] [address] [place] [address], [place] [address] December, [facility] [address] [id number] [address] [place] [address], [place] [address] Nov, [facility] [address] [id number] [address] [place] [address], [place] [address] Nov, [facility] [address] [id number] [address] [place] [address], [place] [address] Nov, [facility] [address] [id number] [address] [place] [address], [place] [address] Nov, [facility] [address] [id number] [address] [place] [address], [place] [address] Nov, [facility] [address] [id number] [address] [place] [address], [place] [address] Nov, [facility] [address] [id number] [address] [place] [address], [place] [address] Nov, [facility] [address] [id number] [address] [place] [address], [place] [address] Oct, [facility] [address] [id number] [address] [place] [address], [place] [address] 31 Oct, 2013 [facility] [address] [id number] [address] [place] [address], [place] [address] 28 Oct, 2013 [facility] [address] [id number] [address] [place] [address], [place] [address] 13 Oct, 2013 [facility] [address] [id number] [address] [place] [address], [place] [address] Oct, [facility] [address] [id number] [address] [place] [address], [place] [address] 06 Oct, 2013 [facility] [address] [id number] [address] [place] [address], [place] [address] Oct, [facility] [address] [id number] [address] [place] [address], [place] [address] Sep, [facility] [address] [id number] [address] [place] [address], [place] [address] Sep, [facility] [address] [id number] [address] [place] [address], [place] [address] Sep, [facility] [address] [id number] [address] [place] [address], [place] [address] Sep, [facility] [address] [id number] [address] [place] [address], [place] [address] Aug, [facility] [address] [id number] [address] [place] [address], [place] [address] Aug, [facility] [address] [id number] [address] [place] [address], [place] [address] Aug, [facility] [address] [id number] [address] [place] [address], [place] [address] Aug, [facility] [address] [id number] [address] [place] [address], [place] [address] Jul, [facility] [address] [id number] [address] [place] [address] Jul, [facility] [address] [id number] [address] [place] [address], [place] [address] Apr, [facility] [address] [id number] [address] [place] [address], [place] [address] Apr, [facility] [address] [id number] [address] [place] [address], [place] [address] Mar, [facility] [address] [id number] [address] [place] [address], [place] [address] Mar, [facility] [address] [id number] [address] [place] [address], [place] [address] Mar, [facility] [address] [id number] [address] [place] [address], [place] [address] Mar, [facility] [address] [id number] [address] [place] [address], [place] [address] Mar, [facility] [address] [id number] [address] [place] [address], [place] [address] Mar, [facility] [address] [id number] [address] [place] [address], [place] [address] Mar, [facility] [address] [id number] [address] [place] [address], [place] [address] Mar, [facility] [address] [id number] [address] [place] [address], [place] [address] Mar, [facility] [address] [id number] [address] [place] [address], [place] [address] Mar, [facility] [address] [id number] [address] [place] [address], [place] [address] Feb, [facility] [address] [id number] [address] [place] [address], [place] [address] Feb, [facility] [address] [id number] [address] [place] [address], [place] [address] Feb, [facility] [address] [id number] [address] [place] [address], [place] [address] Feb, [facility] [address] [id number] [address] [place] [address], [place] [address] Jan, [facility] [address] [id number] [address] [place] [address], [place] [address] Nov, [facility] [address] [id number] [address] [place] [address], [place] [address] 16 Nov, 2012 [facility] [address] [id number] [address] [place] [address], [place] [address] Nov, [facility] [address] [id number] [address] [place] [address], [place] [address] Nov, [facility] [address] [id number] [address] [place] [address], [place] [address] Oct, [facility] [address] [id number] [address] [place] [address], [place] [address] Sep, [facility] [address] [id number] [address] [place] [address], [place] [address] Sep, [facility] [address] [id number] [address] [place] [address], [place] [address] Aug, [facility] [address] [id number] [address] [place] [address], [place] [address] Jul, [facility] [address] [id number] [address] [place] [address], [place] [address] Jul, [facility] [address] [id number] [address] [place] [address], [place] [address] May, [facility] [address] [id number] [address] [place] [address], [place] [address] May, [facility] [address] [id number] [address] [place] [address], [place] [address] May, [facility] [address] [id number] [address] [place] [address], [place] [address] May, [facility] [address] [id number] [address] [place] [address], [place] [address] Apr, [facility] [address] [id number] [address] [place] [address], [place] [address] Mar, [facility] [address] [id number] [address] [place] [address], [place] [address] Mar, [facility] [address] [id number] [address] [place] [address], [place] [address] Mar, [facility] [address] [id number] [address] [place] [address], [place] [address] Mar, [facility] [address] [id number] [address] [place] [address], [place] [address] Mar, [facility] [address] [id number] [address] [place] [address], [place] [address] Mar, [facility] [address] [id number] [address] [place] [address], [place] [address] Mar, [facility] [address] [id number] [address] [place] [address], [place] [address] Mar, [facility] [address] [id number] [address] [place] [address], [place] [address] Feb, [facility] [address] [id number] [address] [place] [address], [place] [address] Feb, [facility] [address] [id number] [address] [place] [address], [place] [address] Jan, [facility] [address] [id number] [address] [place] [address], [place] [address] December, [facility] [address] [id number] [address] [place] [address], [place] [address] December, [facility] [address] [id number] [address] [place] [address], [place] [address] Nov, [facility] [address] [id number] [address] [place] [address], [place] [address] Nov, [facility] [address] [id number] [address] [place] [address], [place] [address] 18 Nov, 2011 [facility] [address] [id number] [address] [place] [address], [place] [address] Nov, [facility] [address] [id number] [address] [place] [address], [place] [address] Oct, [facility] [address] [id number] [address] [place] [address], [place] [address] 29 Sep, 2011 [facility] [address] [id number] [address] [place] [address], [place] [address] Sep, [facility] [address] [id number] [address] [place] [address], [place] [address] 17 Sep, 2011 [facility] [address] [id number] [address] [place] [address], [place] [address] 17 Sep, 2011 [facility] [address] [address] [id number] [address] [place] [address], [place] [address] 16 Sep, 2011 [facility] [address] [id number] [address] [place] [address], [place] [address] 16 Sep, 2011 [facility] [address] [id number] [address] [place] [address], [place] [address] 15 Sep, 2011 [facility] [address] [id number] [address] [place] [address], [place] [address] 15 Sep, 2011 [facility] [address] [id number] [address] [place] [address], [place] [phone] Aug, [facility] [address] [id number] [address] [place] [address], [place] [address] Jul, [facility] [address] [id number] [address] [place] [address], [place] [address] 14 Jul, 2011 [facility] [address] [id number] [address] [place] [address], [place] [address] Jul, [facility] [address] [id number] [address] [place] [address], [place] [address] Jun, [facility] [address] [id number] [address] [place] [address], [place] [address] Jul, [facility] [address] [id number] [address] [place] [address], [place] [address] Jul, [facility] [address] [id number] [address] [place] [phone] Jul, [facility] [address] [id number] [address] [place] [phone] Jul, [facility] [address] [id number] [address] [place] [phone] Jul, [facility] [address] [id number] [address] [place] [phone] May, [facility] [address] [id number] [address] [place] [phone] May, [facility] [address] [id number] [address] [place] [phone] May, [facility] [address] [id number] [address] [place] [phone] Apr, [facility] [address] [id number] [address] [place] [phone] Jun, [facility] [address] [id number] [address] [place] [id number] Jun, [facility] [address] [id number] [address] [place] [phone] May, [facility] [address] [id number] [address] [place] [phone] Jan, IMMUNIZATIONS No Known Immunizations SOCIAL HISTORY Never Assessed REASON FOR VISIT Eye Exam PLAN OF CARE VITAL SIGNS MEDICATIONS Unknown [...]
--- OUTSIDE RECORDS SUMMARY | 2019-11-01 20:32 | XMS REPORT ---
Author Author Nyasia RUIZ Organization [employer] Address Unknown Phone Unavailable Care Team Providers Care Saxophone Teacher Name Role Phone IRVIN RUIZ CP Unavailable Allergies No Known Allergies Problems Problem Type Condition Code Onset Dates Condition Statu s Problem Unspecified cardiac dysrhythmia 427.9 Active Problem Costochondritis 733.6 Active Problem Diabetes 250.00 Active Medications Medication Code System Code Instructions Start Date End Date Status Dosage Actos [facility] [address]-55 30 MG Orally Once a day Apr 25, 2015 1 tablet GlipiZIDE ER [facility] [address]-50 5 MG Orally TAKE ONE TABLET BY MOUTH TWICE DAILY Results No Known Results Summary Purpose [employer] Submission
--- OUTSIDE RECORDS SUMMARY | 2019-11-01 20:32 | XMS REPORT ---
Author Author Nyasia RUIZ Organization [employer] Address Unknown Phone Unavailable Care Team Providers Care Sewing Department Supervisor Name Role Phone IRVIN RUIZ CP Unavailable Allergies No Known Allergies Problems Problem Type Condition Code Onset Dates Condition Statu s Problem Diabetes 250.00 Active Problem Unspecified cardiac dysrhythmia 427.9 Active Problem Type 2 diabetes mellitus without complications E11.9 Active Problem Costochondritis 733.6 Active Medications No Known Medications Results No Known Results Summary Purpose [employer] Submission
--- OUTSIDE RECORDS SUMMARY | 2019-11-01 20:32 | XMS REPORT ---
Author Author Nyasia RUIZ [facility] Address [address] [place] [address] Care Team Providers Care Plow Mechanic Name Role Phone IRVIN RUIZ Unavailable PROBLEMS Type Condition ICD9-CM Code LNA62-SN Code Onset Dates Condition S tatus SNOMED Code Problem Essential hypertension I10 Active 70288269 Problem Type 2 diabetes mellitus without complications E11 .9 Active 67199878 Problem Costochondritis 733.6 Active 6410 9004 Problem Diabetes 250.00 Active 79625193 Problem Unspecified cardiac dysrhythmia 427.9 Active [id number] ALLERGIES No Information ENCOUNTERS Encounter Location Date Diagnosis [facility] [address] [id number] [address] [place] [address] Jan, [facility] [address] [id number] [address] [place] [address] Nov, Type 2 diabetes mellitus wit hout complications E11.9 [facility] [address] [id number] [address] [place] [address] Oct, [facility] [address] [id number] [address] [place] [address] Oct, Labia irritation N90.89 [facility] [address] [id number] [address] [place] [address] Sep, [facility] [address] [id number] [address] [place] [address] Sep, [facility] [address] [id number] [address] [place] [address] Sep, [facility] [address] [id number] [address] [place] [address] Aug, [place] [address] [facility] [id number] [address] [place] [address] Jul, [facility] [address] [facility] [id number] [place] [address] Jul, [facility] [address] [facility] [id number] [address] [place] [address] Mar, Type 2 diabetes mellitus wit hout complications E11.9 ; Acute pain of right knee M25.561 and Essential hypertension I10 [facility] [address] [id number] [address] [place] [address] Mar, [facility] [id number] [place] [address] Mar, Dysuria R30.0 [place] [id number] [place] [address] December, [facility] [id number] [place] [address] Nov, [facility] [address] [id number] [address] [place] [address] Nov, Dental examination Z01.20 [place] [address] [id number] [address] [place] [address] Nov, Dental examination Z01.20 [place] [address] [address] Nov, Non-intractable vomiting wit h nausea, unspecified vomiting type R11.2 ; Arthralgia, unspecified joint M25.50 ; Fever, unspecified fever cause R50.9 ; Type 2 diabetes mellitus without complications E11.9 and Tooth pain K08.89 [facility] [address] [facility] [id number] [address] [place] [address] Nov, Type 2 diabetes mellitus wit hout complications E11.9 [facility] [address] [id number] [address] [place] [address] Nov, Type 2 diabetes mellitus wit hout complications E11.9 and Bronchitis J40 [facility] [address] [id number] [address] [place] [address] Oct, Type 2 diabetes mellitus wit hout complications E11.9 [facility] [address] [id number] [address] [place] [address] Jul, [facility] [address] [id number] [address] [place] [address] Jul, Dysuria R30.0 ; Hematuria R3 1.9 and Vaginal pain R10.2 [facility] [address] [id number] [address] [place] [address] Jul, Dysuria R30.0 ; Vaginal disc harge N89.8 and Low back strain, initial encounter S39.012A [facility] [address] [id number] [address] [place] [address] Jun, Bacterial conjunctivitis of right eye H10.9 ; Sore throat J02.9 and Acute non-recurrent maxillary sinusitis J01.00 [facility] [address] [id number] [address] [place] [address] Jun, [facility] [address] [id number] [address] [place] [address] May, [facility] [address] [id number] [address] [place] [address] Apr, [facility] [address] [id number] [address] [place] [address] 14 Apr, 2016 [facility] [address] [id number] [address] [place] [address] Apr, [facility] [address] [id number] [address] [place] [address] Apr, Type 2 diabetes mellitus wit hout complications E11.9 [facility] [address] [id number] [address] [place] [address] Mar, [facility] [address] [id number] [address] [place] [address] Feb, Bronchitis J40 [facility] [address] [facility] [id number] [address] [place] [address] Feb, Bronchitis J40 [facility] [address] [facility] [id number] [address] [place] [address] Feb, Type 2 diabetes mellitus wit hout complications E11.9 [facility] [address] [facility] [id number] [address] [place] [address] Feb, [facility] [address] [facility] [id number] [address] [place] [address] Feb, [facility] [address] [facility] [id number] [address] [place] [address] Feb, Type 2 diabetes mellitus wit hout complications E11.9 and Dysuria R30.0 [place] [address] [facility] [id number] [address] [place] [address] Jan, Type 2 diabetes mellitus wit hout complications E11.9 [facility] [address] [facility] [id number] [address] [place] [address] Jan, Type 2 diabetes mellitus wit hout complications E11.9 [facility] [address] [facility] [id number] [address] [place] [address] December, Type 2 diabetes mellitus wit hout complications E11.9 [facility] [address] [facility] [id number] [address] [place] [address] Nov, Type 2 diabetes mellitus wit hout complications E11.9 [facility] [address] [facility] [id number] [address] [place] [address] Oct, Type 2 diabetes mellitus wit hout complications E11.9 ; Fever R50.9 ; Myalgia M79.1 and Cough R05 [facility] [address] [facility] [id number] [address] [place] [address] 15 Sep, 2015 Dysuria R30.0 and Cystitis N 30.90 [place] [address] [id number] [address] [place] [address] Sep, [facility] [address] [facility] [id number] [address] [place] [address] Sep, [facility] [address] [id number] [address] [place] [id number] Aug, Dental examination Z01.20 [facility] [address] [facility] [id number] [address] [place] [address] Aug, Type 2 diabetes mellitus wit hout complications E11.9 [facility] [address] [facility] [id number] [address] [place] [address] Jul, Dysfunction of left eustachi an tube H69.82 [facility] [address] [facility] [id number] [address] [place] [address] Jun, [facility] [address] [facility] [id number] [address] [place] [address] Jun, Cellulitis L03.90 [facility] [address] [facility] [id number] [address] [place] [address] Jun, [facility] [address] [id number] [address] [place] [address] Jun, [facility] [address] [id number] [address] [place] [address] Jun, [facility] [address] [facility] [id number] [address] [place] [address] May, Dermatofibroma of ankle, rig ht D23.71 [facility] [address] [facility] [id number] [address] [place] [address] May, [facility] [address] [facility] [id number] [address] [place] [address] Apr, Diabetes 250.00 and 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 [facility] [address] [facility] [id number] [address] [place] [address] Apr, [facility] [address] [facility] [id number] [address] [place] [address] Apr, [facility] [address] [facility] [id number] [address] [place] [address] Apr, Diabetes 250.00 ; Influenza vaccine administered V04.81 and Allergic rhinitis 477.9 [facility] [address] [facility] [id number] [address] [place] [address] Mar, [facility] [address] [facility] [id number] [address] [place] [address] Jan, [facility] [address] [facility] [id number] [address] [place] [address] Jan, DM w/o complication type II 250.00 [facility] [address] [facility] [id number] [address] [place] [address] December, DM w/o complication type II 250.00 ; Calcaneal spur 726.73 ; Vaginitis due to Amanda 112.1 and Onychomycosis 110.1 [facility] [address] [facility] [id number] [address] [place] [address] 30 Nov, 2014 Amanda infection of genital region 112.2 [facility] [address] [facility] [id number] [address] [place] [address] 14 Nov, 2014 [facility] [address] [facility] [id number] [address] [place] [address] Nov, [facility] [address] [facility] [id number] [address] [place] [address] Oct, [facility] [address] [facility] [id number] [address] [place] [address] Oct, [facility] [address] [facility] [id number] [address] [place] [address] Sep, [facility] [address] [facility] [id number] [address] [place] [address] Sep, [facility] [address] [id number] [address] [place] [address], [place] [address] Jul, [facility] [address] [id number] [address] [place] [address], [place] [address] Jul, [facility] [address] [id number] [address] [place] [address], [place] [address] Jun, [facility] [address] [id number] [address] [place] [address], [place] [address] Jun, [facility] [address] [id number] [address] [place] [address], [place] [address] Jun, [facility] [address] [id number] [address] [place] [address], [place] [address] Jun, [facility] [address] [id number] [address] [place] [address], [place] [address] May, [facility] [address] [id number] [address] [place] [address], [place] [address] May, [facility] [address] [id number] [address] [place] [address], [place] [address] May, [facility] [address] [id number] [address] [place] [address], [place] [address] May, [facility] [address] [id number] [address] [place] [address], [place] [address] Apr, [facility] [address] [id number] [address] [place] [address], [place] [address] Apr, [facility] [address] [id number] [address] [place] [address], [place] [address] Apr, [facility] [address] [id number] [address] [place] [address], [place] [address] Apr, [facility] [address] [id number] [address] [place] [address], [place] [address] Mar, [facility] [address] [id number] [address] [place] [address], [place] [address] Mar, [facility] [address] [id number] [facility] [place] [address] Mar, [facility] [address] [id number] [address] [place] [address], [place] [address] Mar, [facility] [address] [id number] [address] [place] [address], [place] [address] Mar, [facility] [address] [id number] [address] [place] [address], [place] [address] Mar, [facility] [address] [id number] [address] [place] [address], [place] [address] Mar, [facility] [address] [id number] [address] [place] [address], [place] [address] Mar, [facility] [address] [id number] [address] [place] [address], [place] [address] Mar, [facility] [address] [id number] [address] [place] [address], [place] [address] Mar, [facility] [address] [id number] [address] [place] [address], [place] [address] Mar, [facility] [address] [id number] [address] [place] [address], [place] [address] Mar, [facility] [address] [id number] [address] [place] [address], [place] [address] Feb, [facility] [address] [id number] [address] [place] [address], [place] [address] Feb, [facility] [address] [id number] [address] [place] [address], [place] [address] Jan, [facility] [address] [id number] [address] [place] [address], [place] [address] Jan, [facility] [address] [id number] [address] [place] [address], [place] [address] Jan, [facility] [address] [id number] [address] [place] [address], [place] [address] Jan, [facility] [address] [id number] [address] [place] [address], [place] [address] December, [facility] [address] [id number] [address] [place] [address], [place] [address] December, [facility] [address] [id number] [address] [place] [address], [place] [address] December, [facility] [address] [id number] [address] [place] [address], [place] [address] December, [facility] [address] [id number] [address] [place] [address], [place] [address] Nov, [facility] [address] [id number] [address] [place] [address], [place] [address] Nov, [facility] [address] [id number] [address] [place] [address], [place] [address] Nov, [facility] [address] [id number] [address] [place] [address], [place] [address] Nov, [facility] [address] [id number] [address] [place] [address], [place] [address] Nov, [facility] [address] [id number] [address] [place] [address], [place] [address] Nov, [facility] [address] [id number] [address] [place] [address], [place] [address] Nov, [facility] [address] [id number] [address] [place] [address], [place] [address] Oct, [facility] [address] [id number] [address] [place] [address], [place] [address] Oct, [facility] [address] [id number] [address] [place] [address], [place] [address] Oct, [facility] [address] [id number] [address] [place] [address], [place] [address] Oct, [facility] [address] [id number] [address] [place] [address], [place] [address] 13 Oct, 2013 [facility] [address] [id number] [address] [place] [address], [place] [address] Oct, [facility] [address] [id number] [address] [place] [address], [place] [address] Oct, [facility] [address] [id number] [address] [place] [address], [place] [address] 07 Sep, 2013 [facility] [address] [id number] [address] [place] [address], [place] [address] Sep, [facility] [address] [id number] [address] [place] [address], [place] [address] Sep, [facility] [address] [id number] [address] [place] [address], [place] [address] Sep, [facility] [address] [id number] [address] [place] [address], [place] [address] Aug, [facility] [address] [id number] [address] [place] [address], [place] [address] Aug, [facility] [address] [id number] [address] [place] [address], [place] [address] Aug, [facility] [address] [id number] [address] [place] [address], [place] [address] Aug, [facility] [address] [id number] [address] [place] [address] Jul, [facility] [address] [id number] [address] [place] [address], [place] [address] Jul, [facility] [address] [id number] [address] [place] [address], [place] [address] 04 Apr, 2013 [facility] [address] [id number] [address] [place] [address], [place] [address] 03 Apr, 2013 [facility] [address] [id number] [address] [place] [address], [place] [address] Mar, [facility] [address] [id number] [address] [place] [address], [place] [address] Mar, [facility] [address] [id number] [address] [place] [address], [place] [address] Mar, [facility] [address] [id number] [address] [place] [address], [place] [address] Mar, [facility] [address] [id number] [address] [place] [address], [place] [address] Mar, [facility] [address] [id number] [address] [place] [address], [place] [address] Mar, [facility] [address] [id number] [address] [place] [address], [place] [address] Mar, [facility] [address] [id number] [address] [place] [address], [place] [address] Mar, [facility] [address] [id number] [address] [place] [address], [place] [address] Mar, [facility] [address] [id number] [address] [place] [address], [place] [address] Mar, [facility] [address] [id number] [address] [place] [address], [place] [address] Feb, [facility] [address] [id number] [address] [place] [address], [place] [address] Feb, [facility] [address] [id number] [address] [place] [address], [place] [address] Feb, [facility] [address] [id number] [address] [place] [address], [place] [address] Feb, [facility] [address] [id number] [address] [place] [address], [place] [address] Jan, [facility] [address] [id number] [address] [place] [address], [place] [address] Nov, [facility] [address] [id number] [address] [place] [address], [place] [address] 16 Nov, 2012 [facility] [address] [id number] [address] [place] [address], [place] [address] 15 Nov, 2012 [facility] [address] [id number] [address] [place] [address], [place] [address] Nov, [facility] [address] [id number] [address] [place] [address], [place] [address] Oct, [facility] [address] [id number] [address] [place] [address], [place] [address] Sep, [facility] [address] [id number] [address] [place] [address], [place] [address] Sep, [facility] [address] [id number] [address] [place] [address], [place] [address] Aug, [facility] [address] [id number] [address] [place] [address], [place] [address] Jul, [facility] [address] [id number] [address] [place] [address], [place] [address] Jul, [facility] [address] [id number] [address] [place] [address], [place] [address] May, [facility] [address] [id number] [address] [place] [address], [place] [address] May, [facility] [address] [id number] [address] [place] [address], [place] [address] May, [facility] [address] [id number] [address] [place] [address], [place] [address] May, [facility] [address] [id number] [address] [place] [address], [place] [address] Apr, [facility] [address] [id number] [address] [place] [address], [place] [address] Mar, [facility] [address] [id number] [address] [place] [address], [place] [address] Mar, [facility] [address] [id number] [address] [place] [address], [place] [address] Mar, [facility] [address] [id number] [address] [place] [address], [place] [address] Mar, [facility] [address] [id number] [address] [place] [address], [place] [address] Mar, [facility] [address] [id number] [address] [place] [address], [place] [address] Mar, [facility] [address] [id number] [address] [place] [address], [place] [address] Mar, [facility] [address] [id number] [address] [place] [address], [place] [address] Mar, [facility] [address] [id number] [address] [place] [address], [place] [address] Feb, [facility] [address] [id number] [address] [place] [address], [place] [address] Feb, [facility] [address] [id number] [address] [place] [address], [place] [address] Jan, [facility] [address] [id number] [address] [place] [address], [place] [address] December, [facility] [address] [id number] [address] [place] [address], [place] [address] December, [facility] [address] [id number] [address] [place] [address], [place] [address] Nov, [facility] [address] [id number] [address] [place] [address], [place] [address] Nov, [facility] [address] [id number] [address] [place] [address], [place] [address] 18 Nov, 2011 [facility] [address] [id number] [address] [place] [address], [place] [address] Nov, [facility] [address] [id number] [address] [place] [address], [place] [address] 08 Oct, 2011 [facility] - [facility] [address] [id number] [address] [place] [address], [place] [address] 29 Sep, 2011 [facility] [address] [id number] [address] [place] [address], [place] [address] 21 Sep, 2011 [facility] [address] [id number] [address] [place] [address], [place] [address] Sep, [facility] [address] [id number] [address] [place] [address], [place] [address] 17 Sep, 2011 [facility] [address] [id number] [address] [place] [address], [place] [address] 16 Sep, 2011 [facility] [address] [id number] [address] [place] [address], [place] [address] 16 Sep, 2011 [facility] [address] [id number] [address] [place] [address], [place] [address] 15 Sep, 2011 [facility] [address] [id number] [address] [place] [address], [place] [address] 15 Sep, 2011 [facility] [address] [id number] [address] [place] [address], [place] [address] Aug, [facility] [address] [id number] [address] [place] [address], [place] [address] Jul, [facility] [address] [id number] [address] [place] [address], [place] [address] Jul, [facility] [address] [id number] [address] [place] [address], [place] [address] Jul, [facility] [address] [id number] [address] [place] [address], [place] [address] Jun, [facility] [address] [id number] [address] [place] [address], [place] [address] Jul, [facility] [address] [id number] [address] [place] [phone] Jul, [facility] [address] [id number] [address] [place] [address] Jul, [facility] [address] [id number] [address] [place] [phone] Jul, [facility] [address] [id number] [address] [place] [address] Jul, [facility] [address] [id number] [address] [place] [phone] May, [facility] [address] [id number] [address] [place] [phone] May, [facility] [address] [id number] [address] [place] [address] May, [facility] [address] [id number] [address] [place] [phone] Apr, [facility] [address] [id number] [address] [place] [phone] Jun, [facility] [address] [id number] [address] [place] [phone] Jun, [facility] [address] [id number] [address] [place] [phone] May, [facility] [address] [id number] [address] [place] [phone] Jan, IMMUNIZATIONS No Known Immunizations SOCIAL HISTORY Never Assessed REASON FOR VISIT returned phone call PLAN OF CARE VITAL SIGNS MEDICATIONS [...]
--- OUTSIDE RECORDS SUMMARY | 2019-11-01 20:32 | XMS REPORT ---
Author Author Nyasia RUIZ Organization [employer] Address Unknown Phone Unavailable Care Team Providers Care Car Knocker Name Role Phone IRVIN RUIZ CP Unavailable [...] 2 diabetes mellitus without complications E11.9 Active Assessment Dysuria R30.0 Active Problem Costochondritis 733.6 Active Assessment Type 2 diabetes mellitus without complications E11.9 Active Medications Medication Code System Code Instructions Start Date End Date Status Dosage Actos [facility] [address]-00 30 MG Orally Once a day samples Apr 25 015 1 tablet Januvia [facility] [address]-47 100 MG Once a day please voucher Apr 21, 2014 1 Tablet by Oral route 1 time per day Atenolol [facility] [address]-83 50 MG Orally Once a day 1 tablet GlipiZIDE ER [facility] [address]-47 5 MG Orally 2 times a day 1 tablet Bydureon [facility] [address]-49 2 MG Subcutaneous February 19, 2016 as directed Blood Glucose Test Strip [facility] 0 Blood Glucose Once a day Samples Sep 15, 2015 test blood sugar Procedures Procedure Coding System Code Date URINALYSIS, AUTO, W/O SCOPE CPT-4 66951 February 19, 2016 URINE CULTURE/COLONY COUNT CPT-4 64318 February 19, 2016 GLYCATED HEMOGLOBIN TEST CPT-4 28159 February Office Visit, Est Pt., Level 3 CPT-4 24448 J [email or web address] Vital Signs Date/Time: February 19, 2016 Cardiac Monitoring Heart Rate 72 bpm Weight 211.0 lbs Height 63 in BMI 37.37 Index Blood Pressure Diastolic 84 mmHg Blood Pressure Systolic 130 mmHg Results No Known Results Summary Purpose eClinicalWorks Submission
--- OUTSIDE RECORDS SUMMARY | 2019-11-01 20:32 | XMS REPORT ---
Author Author Nyasia OATES [facility] eClinicalWorks Address Unknown Phone Unavailable Care Team Providers Care Human Capital Manager Name Role Phone LISBETH OATES CP Unavailable Allergies, Adverse Reactions, Alerts Substance Reaction Event Type Metformin HCl Info Not Available Drug Allergy Glucotrol XL Info Not Available Drug Allergy Doxycycline Hyclate nausea Drug Allergy Problems Problem Type Condition Code Onset Dates Condition Statu s Problem Diabetes 250.00 Active Problem Unspecified cardiac dysrhythmia 427.9 Active Problem Type 2 diabetes mellitus without complications E11.9 Active Assessment Sore throat J02.9 Active Assessment Acute non-recurrent maxillary sinusitis J01.00 Active Problem Costochondritis 733.6 Active Assessment Bacterial conjunctivitis of right eye H10.9 Active Medications Medication Code System Code Instructions Start Date End Date Status Dosage GlipiZIDE ER [facility] [address]-83 10 MG Orally 2 times a day 1 tablet Actos [facility] [address]-31 30 MG Orally Once a day samples Apr 25 015 1 tablet Augmentin [facility] [address]-45 875-125 MG Orally every 12 hrs No 2015Jul 08, 2016 1 tablet Erythromycin [facility] [address]-91 5 MG/GM Ophthalmic 2 times a da y Jun 28, 2016 Jul 08, 2016 apply 1/2 inch ribbon to rig ht eye Blood Glucose Test Strip [place] 0 Blood Glucose Once a day Samples Sep 15, 2015 test blood sugar Atenolol [facility] [address]-74 50 MG Orally Once a day 1 tablet Januvia [facility] [address]-86 100 MG Orally Once a day Apr 21, 2014 1 tablet Procedures Procedure Coding System Code Date Office Visit, Est Pt., Level 3 CPT-4 22519 N 2015 STREP A ASSAY W/OPTIC CPT-4 25263 Jun 28 16 Vital Signs Date/Time: Jun 28, 2016 Cardiac Monitoring Heart Rate 90 bpm Weight 207 lbs Height 63 in BMI 36.66 Index Blood Pressure Diastolic 78 mmHg Blood Pressure Systolic 122 mmHg Results Name Result Date Reference Range Unit Abnormali ty Flag STREP A (IN HOUSE) ----STREP A negative [id number] ----Control + [id number] ----Lot # [id number] ----Exp date 01/23/1820160628 Summary Purpose eClinicalWorks Submission
--- OUTSIDE RECORDS SUMMARY | 2019-11-01 20:32 | XMS REPORT ---
Author Author Nyasia BRAND Organization [employer] Address Unknown Phone Unavailable Care Team Providers Care Fence Erector Name Role Phone ADRIANA BRAND CP Unavailable Allergies, Adverse Reactions, Alerts Substance [...] E11.9 Active Problem Costochondritis 733.6 Active Assessment Bronchitis J40 Active Medications Medication Code System Code Instructions Start Date End Date Status Dosage Bydureon [facility] [address]-37 2 MG Subcutaneous once weekly February 18 16 Inject 2MG Bydureon [facility] [address]-78 2 MG ICD10- E11.9 once weekly February 18 16 as directed Doxycycline Hyclate [facility] [address]-52 100 MG Orally bid ac FebMar 11, 2016 1 capsule Atenolol [facility] [address]-31 50 MG Orally Once a day 1 tablet Blood Glucose Test Strip NDC 0 Blood Glucose Once a day Samples Sep 15, 2015 test blood sugar Januvia [facility] [address]-70 100 MG Once a day please voucher Apr 21, 2014 1 Tablet by Oral route 1 time per day Actos [facility] [address]-80 30 MG Orally Once a day samples Apr 25 015 1 tablet GlipiZIDE ER [facility] [address]-00 5 MG Orally 2 times a day 1 tablet Procedures Procedure Coding System Code Date Office Visit, Est Pt., Level 2 CPT-4 24881 J [email or web address] Vital Signs Date/Time: March 04, 2016 Cardiac Monitoring Heart Rate 74 bpm Weight 209.3 lbs Height 63 in BMI 37.07 Index Blood Pressure Diastolic 83 mmHg Blood Pressure Systolic 142 mmHg Results No Known Results Summary Purpose eClinicalWorks Submission
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
--- OUTSIDE RECORDS SUMMARY | 2019-11-01 20:32 | XMS REPORT ---
Author Author Nyasia BRAND [facility] eClinicalWorks Address Unknown Phone Unavailable Care Team Providers Care Market Research Coordinator Name Role Phone ADRIANA BRAND CP Unavailable [...] Start Date End Date Status Dosage Atenolol [facility] [address]-42 50 MG Orally Once a day 1 tablet Promethazine-Codeine [facility] [address]-55 6.25-10 MG/ 5ML Orally every 4 hrs, prn cough March 08, 2016 2 tsp GlipiZIDE ER [facility] [address]-10 5 MG Orally 2 times a day 1 tablet Bydureon [facility] [address]-11 2 MG Subcutaneous once weekly February 18 16 Inject 2MG Januvia [facility] [address]-97 100 MG Once a day please voucher Apr 21, 2014 1 Tablet by Oral route 1 time per day Zithromax Z-Shan [facility] [address]-52 250 MG Orally Once a day FebMar 13, 2016 2 tablets on the first day, then 1 tablet daily for 4 days Actos [facility] [address]-27 30 MG Orally Once a day samples Apr 25 015 1 tablet Bydureon [facility] [address]-70 2 MG ICD10- E11.9 once weekly February 18 16 as directed ProAir HFA [facility] [address]-90 108 (90 Base) MCG/ACT Inhalation every 4 hrs 2 puffs as needed Blood Glucose Test Strip [facility] 0 Blood Glucose Once a day Samples Sep 15, 2015 test blood sugar Procedures Procedure Coding System Code Date Office Visit, Est Pt., Level 3 CPT-4 71704 J 2015 MEASURE BLOOD OXYGEN LEVEL CPT-4 78363 March 08, 2016 Vital Signs Date/Time: March 08, 2016 Cardiac Monitoring Heart Rate 92 bpm Weight 208.5 lbs Height 63 in BMI 36.93 Index Oximetry 94 % Blood Pressure Diastolic 86 mmHg Blood Pressure Systolic 140 mmHg Results No Known Results Summary Purpose eClinicalWorks Submission
--- OUTSIDE RECORDS SUMMARY | 2019-11-01 20:32 | XMS REPORT ---
Author Author Nyasia RUIZ [facility] Address [address] [place] [address] Care Team Providers Care Barrel Inspector Name Role Phone IRVIN RUIZ Unavailable PROBLEMS Type Condition ICD9-CM Code [id number] Code Onset Dates Condition S tatus SNOMED Code Problem Type 2 diabetes mellitus without complications E11 .9 Active 26499446 Problem Diabetes 250.00 Active 31156615 Problem Unspecified cardiac dysrhythmia 427.9 Active 878538345 Problem Costochondritis 733.6 Active 6410 9004 ALLERGIES Unknown Allergies SOCIAL HISTORY No smoking Hx information available PLAN OF CARE VITAL SIGNS MEDICATIONS Unknown Medications RESULTS No Results PROCEDURES No Known procedures IMMUNIZATIONS No Known Immunizations
--- OUTSIDE RECORDS SUMMARY | 2019-11-01 20:32 | XMS REPORT ---
Author Author Nyasia RUIZ Organization eClinicalWorks Address Unknown Phone Unavailable Care Team Providers Care Ip Technology Transactions Attorney Name Role Phone IRVIN RUIZ CP Unavailable Allergies No Known Allergies Problems Problem Type Condition Code Onset Dates Condition Statu s Problem Diabetes 250.00 Active Problem Unspecified cardiac dysrhythmia 427.9 Active Problem Type 2 diabetes mellitus without complications E11.9 Active Problem Costochondritis 733.6 Active Medications Medication Code System Code Instructions Start Date End Date Status Dosage Blood Glucose Test Strip NDC 0 Blood Glucose Once a day Samples Sep 15, 2015 test blood sugar Results No Known Results Summary Purpose eClinicalWorks Submission
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
--- OUTSIDE RECORDS SUMMARY | 2019-11-01 20:32 | XMS REPORT ---
Author Author Nyasia GALDAMEZ Organization eClinicalWorks Address Unknown Phone Unavailable Care Team Providers Care Racecourse Barrier Attendant Name Role Phone FADIA GALDAMEZ CP Unavailable Allergies, Adverse Reactions, Alerts Substance Reaction Event Type Metformin HCl Info Not Available Drug Allergy Glucotrol XL Info Not Available Drug Allergy Doxycycline Hyclate Info Not Available Drug Allergy Problems Problem Type Condition Code Onset Dates Condition Statu s Problem Unspecified cardiac dysrhythmia 427.9 Active Problem Costochondritis 733.6 Active Problem Diabetes 250.00 Active Assessment Dermatofibroma of ankle, 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 Medications Medication Code System Code Instructions Start Date End Date Status Dosage Atenolol [facility] 73945885594 50 MG TAKE ONE TA BLET BY MOUTH DAILY Actos [facility] [address]-76 30 MG Orally Once a day Apr 25, 2015 1 tablet Januvia [facility] [address]-61 100 MG Once a day Apr 21, 2014 1 Tablet by Oral route 1 time per day GlipiZIDE ER [facility] [address]-50 5 MG Orally TAKE ONE TABLET BY MOUTH TWICE DAILY Procedures Procedure Coding System Code Date Exc benign tumor to 1.25 cm CPT-4 D7430 May 30, 2015 Vital Signs Date/Time: May 30, 2015 Temperature 97.1 F Weight 206.8 lbs Height 63 in BMI 36.63 Index Blood Pressure Diastolic 74 mmHg Blood Pressure Systolic 120 mmHg Cardiac Monitoring Heart Rate 72 bpm Results No Known Results Summary Purpose eClinicalWorks Submission
--- OUTSIDE RECORDS SUMMARY | 2019-11-01 20:32 | XMS REPORT ---
Author Author Nyasia RUIZ Organization eClinicalWorks Address Unknown Phone Unavailable Care Team Providers Care Filleter Name Role Phone IRVIN RUIZ CP Unavailable Allergies No Known Allergies Problems Problem Type Condition ICD-9 Code Onset Dates Condition Statu s Problem Costochondritis 733.6 Active Problem Unspecified cardiac dysrhythmia 427.9 Active Medications Medication Code System Code Instructions Start Date End Date Status Dosage GlipiZIDE ER [facility] [address]-15 5 MG Orally TAKE ONE TABLET BY MOUTH TWICE DAILY Results No Known Results Summary Purpose eClinicalWorks Submission
--- OUTSIDE RECORDS SUMMARY | 2019-11-01 20:32 | XMS REPORT ---
Author Author Nyasia RUIZ [facility] eClinicalWorks Address Unknown Phone Unavailable Care Team Providers Care Explosives Mixer Operator Name Role Phone IRVIN RUIZ CP Unavailable Allergies No Known Allergies Problems Problem Type Condition Code Onset Dates Condition Statu s Problem Diabetes 250.00 Active Problem Unspecified cardiac dysrhythmia 427.9 Active Problem Type 2 diabetes mellitus without complications E11.9 Active Problem Costochondritis 733.6 Active Medications Medication Code System Code Instructions Start Date End Date Status Dosage Yamil [facility] [address]-44 100 MG Orally Once a day Apr 21, 2014 1 tablet Results No Known Results Summary Purpose eClinicalWorks Submission
--- OUTSIDE RECORDS SUMMARY | 2019-11-01 20:32 | XMS REPORT ---
Author Author Nyasia RUIZ Organization eClinicalWorks Address Unknown Phone Unavailable Care Team Providers Care Digital Content Coordinator Name Role Phone IRVIN RUIZ CP Unavailable Allergies No Known Allergies Problems Problem Type Condition Code Onset Dates Condition Statu s Problem Diabetes 250.00 Active Problem Unspecified cardiac dysrhythmia 427.9 Active Problem Type 2 diabetes mellitus without complications E11.9 Active Problem Costochondritis 733.6 Active Medications Medication Code System Code Instructions Start Date End Date Status Dosage Atenolol [facility] [address]-45 50 MG TAKE ONE TABLET BY MOUTH DAILY GlipiZIDE ER [facility] [address]-71 5 MG Orally 2 times a day TAKE ONE TABLET BY MOUTH TWICE DAILY Results No Known Results Summary Purpose eClinicalWorks Submission
--- OUTSIDE RECORDS SUMMARY | 2019-11-01 20:32 | XMS REPORT ---
Author Author Nyasia RUIZ Organization eClinicalWorks Address Unknown Phone Unavailable Care Team Providers Care Carbonation Tester Name Role Phone IRVIN RUIZ CP Unavailable Allergies No Known Allergies Problems Problem Type Condition Code Onset Dates Condition Statu s Problem Unspecified cardiac dysrhythmia 427.9 Active Problem Costochondritis 733.6 Active Problem Diabetes 250.00 Active Medications Medication Code System Code Instructions Start Date End Date Status Dosage Actos [facility] [address]-10 30 MG Orally Once a day Apr 25, [address] [facility] [address]-42 5 MG Orally TAKE ONE TABLET BY MOUTH TWICE DAILY Results No Known Results Summary Purpose eClinicalWorks Submission
--- OUTSIDE RECORDS SUMMARY | 2019-11-01 20:32 | XMS REPORT ---
Author Author Nyasia RUIZ [facility] Address [address] [place] [address] Care Team Providers Care Therapist Asst Name Role Phone IRVIN RUIZ Unavailable PROBLEMS Type Condition ICD9-CM Code [id number] Code Onset Dates Condition S tatus SNOMED Code Problem Type 2 diabetes mellitus without complications E11 .9 Active 01198314 Problem Diabetes 250.00 Active 11005072 Problem Unspecified cardiac dysrhythmia 427.9 Active 798098428 Problem Costochondritis 733.6 Active 6410 9004 ALLERGIES Unknown Allergies SOCIAL HISTORY No smoking Hx information available PLAN OF CARE VITAL SIGNS MEDICATIONS Medication Instructions Dosage Frequency Start Date End Date Duration S tatus Naproxen 500 MG Orally every 12 hrs 1 tablet as needed 12h 13 Jul, 2016 Jul, 10 days Active Bactrim DS 800-160 MG Orally Twice a day 1 tablet 12h 13 Jul, 2 016 Jul, 07 days Active RESULTS No Results PROCEDURES No Known procedures IMMUNIZATIONS No Known Immunizations
--- OUTSIDE RECORDS SUMMARY | 2019-11-01 20:32 | XMS REPORT ---
Author Author Nyasia RUIZ Organization eClinicalWorks Address Unknown Phone Unavailable Care Team Providers Care Exercise Manager Name Role Phone IRVIN RUIZ CP Unavailable Allergies No Known Allergies Problems Problem Type Condition Code Onset Dates Condition Statu s Problem Diabetes 250.00 Active Problem Unspecified cardiac dysrhythmia 427.9 Active Problem Type 2 diabetes mellitus without complications E11.9 Active Problem Costochondritis 733.6 Active Medications No Known Medications Results No Known Results Summary Purpose eClinicalWorks Submission
--- OUTSIDE RECORDS SUMMARY | 2019-11-01 20:32 | XMS REPORT ---
Author Author Nyasia RUIZ [facility] Address [address] [place] [address] Care Team Providers Care Experimental Welder Name Role Phone IRVIN RUIZ Unavailable PROBLEMS Type Condition ICD9-CM Code [id number] Code Onset Dates Condition S tatus SNOMED Code Problem Essential hypertension I10 Active 84835300 Problem Type 2 diabetes mellitus without complications E11 .9 Active 14814363 Problem Costochondritis 733.6 Active 6410 9004 Problem Diabetes 250.00 Active 95156035 Problem Unspecified cardiac dysrhythmia 427.9 Active [id number] ALLERGIES No Information SOCIAL HISTORY Never Assessed PLAN OF CARE VITAL SIGNS MEDICATIONS Medication Instructions Dosage Frequency Start Date End Date Duration S tatus Diflucan 150 MG Orally one time. December repeat in 3 days i f symptoms persist. 1 tablet December, 4 days Active RESULTS No Results PROCEDURES No [...]
--- OUTSIDE RECORDS SUMMARY | 2019-11-01 20:33 | XMS REPORT ---
Author Nyasia Carrera [facility] eClinicalWorks Address Unknown Phone Unavailable Care Team Providers Care Showroom Salesperson Name Role Phone SAMUEL WEATHERS Unavailable Allergies No Known Allergies Problems Problem Type Condition Code Onset Dates Condition Statu s Problem Unspecified cardiac dysrhythmia 427.9 Active Problem Costochondritis 733.6 Active Problem Diabetes 250.00 Active Medications Medication Code System Code Instructions Start Date End Date Status Dosage Bactrim DS [facility] [address]-51 800-160 MG Orally 2 times a day N ov 2014Jun 25, 2015 1 tablet Results No Known Results Summary Purpose eClinicalWorks Submission
--- OUTSIDE RECORDS SUMMARY | 2019-11-01 20:33 | XMS REPORT ---
Author Author Nyasia RUIZ [facility] Address [address] [place] [address] Care Team Providers Care Video Poker Floorman Name Role Phone IRVIN RUIZ Unavailable PROBLEMS Type Condition ICD9-CM Code [id number] Code Onset Dates Condition S tatus SNOMED Code Problem Type 2 diabetes mellitus without complications E11 .9 Active 32151880 Problem Diabetes 250.00 Active 03460391 Problem Unspecified cardiac dysrhythmia 427.9 Active 910164440 Problem Costochondritis 733.6 Active 6410 9004 ALLERGIES Substance Reaction Event Type Date Status Metformin HCl Unknown Drug Allergy Jul, Active Glucotrol XL Unknown Drug Allergy Jul, Active Doxycycline Hyclate nausea Drug Allergy Jul, Active SOCIAL HISTORY No smoking Hx information available PLAN OF CARE Activity Details Follow Up prn Reason: VITAL SIGNS Height 63 in 2016-07-23 Weight 205.1 lbs 2016-07-23 Temperature 97.7 degrees Fahrenheit 2016-07-23 Heart Rate 88 bpm 2016-07-23 Respiratory Rate 20 2016-07-23 BMI 36.33 kg/m2 2016-07-23 Blood pressure systolic 144 mmHg 2016-07-23 Blood pressure diastolic 88 mmHg 2016-07-23 MEDICATIONS Medication Instructions Dosage Frequency Start Date End Date Duration S tatus Atenolol 50 MG Orally Once a day 1 tablet 24h Active Hydrocortisone Plus 1 % Externally Twice a day 1 application to affected area 12h Jul, Active Januvia 100 MG Orally Once a day 1 tablet 24h Apr, 1 4 days Active Blood Glucose Test Strip Blood Glucose test blood sugar Sep, Active Actos 30 MG Orally Once a day samples 1 tablet Apr, Active GlipiZIDE ER 10 MG Orally 2 times a day 1 tablet 12h 90 days Active AZO Urinary Pain 97.5 MG Orally Three times a day 2 tablets after m eals 8h Jul, Jul, 2 day(s) Active RESULTS Name Result Date Reference Range UA LONG DIP (IN HOUSE) 2016-07-23 Lot # [id number] Exp date 2017-06 Clarity Cloudy Color Yellow Odor None GLU 3+ LATOYA Negative KET Negative SG >=1.030 BLO 3+ pH 7.0 Protein 2+ URO 0.2 NIT Negative HOLLY Trace Lot # Exp date CT Scan : Abd & Pelvis w/o contrast (STONE PROTOCOL) 2016-07-23 PROCEDURES Procedure Date Ordered Related Diagnosis Body Site URINALYSIS, AUTO, W/O SCOPE Jul 23, 2016 Office Visit, Est Pt., Level 3 Jul 23, 2016 IMMUNIZATIONS No Known Immunizations
--- OUTSIDE RECORDS SUMMARY | 2019-11-01 20:33 | XMS REPORT ---
Author Author Nyasia RUIZ [facility] eClinicalWorks Address Unknown Phone Unavailable Care Team Providers Care Deboning Team Leader Name Role Phone IRVIN RUIZ CP Unavailable Allergies, Adverse Reactions, Alerts Substance Reaction Event Type Metformin HCl Info Not Available Drug Allergy Glucotrol XL Info Not Available Drug Allergy Doxycycline Hyclate Info Not Available Drug Allergy Problems Problem Type Condition ICD-9 Code Onset Dates Condition Statu s Problem Costochondritis 733.6 Active Assessment Diabetes 250.00 Active Problem Unspecified cardiac dysrhythmia 427.9 Active Assessment Influenza vaccine administered V04.81 Active Assessment Allergic rhinitis 477.9 Active Medications Medication Code System Code Instructions Start Date End Date Status Dosage Januvia [facility] [address]-15 100 MG Once a day Apr 21, 2014 1 Tablet by Oral route 1 time per day Atenolol [facility] [address]-66 50 MG Orally Once a day 1 tablet ZyrTEC [facility] [address]-64 10 MG Orally Once a day samples S ept 2014May 25, 2015 1 tablet as needed Actos [facility] [address]-69 30 MG Orally Once a day samples Apr 25 015 1 tablet GlipiZIDE ER [facility] [address]-75 5 MG Orally TAKE ONE TABLET BY MOUTH TWICE DAILY Procedures Procedure Coding System Code Date SINGLE IMMUNIZATION ADMIN CPT-4 34056 Apr 112014 MICROALBUMIN, SEMIQUANT CPT-4 79738 Apr 25, 2015 GLYCATED HEMOGLOBIN TEST CPT-4 89041 Apr Office Visit, Est Pt., Level 3 CPT-4 14033 S ept 2014 MICROALBUMIN, QUANTITATIVE CPT-4 80703 Apr 25, 2015 FLU VAC NO PRSV 4 KAL 3 YRS+ CPT-4 53680 Apr Vital Signs Date/Time: Apr 25, 2015 Temperature 96.3 F Weight 198.8 lbs Height 63 in BMI 35.21 Index Blood Pressure Diastolic 82 mmHg Blood Pressure Systolic 130 mmHg Cardiac Monitoring Heart Rate 70 bpm Results No Known Results Immunizations Vaccine Administration Date FLUARIX QUAD (3 & UP)-2014Apr 25, 2015 Summary Purpose eClinicalWorks Submission
--- OUTSIDE RECORDS SUMMARY | 2019-11-01 20:33 | XMS REPORT ---
Author Nyasia Bullock Organization eClinicalWorks Address Unknown Phone Unavailable Care Team Providers Care Fish And Game Warden Name Role Phone FADIA GALDAMEZ CP Unavailable Allergies No Known Allergies Problems Problem Type Condition Code Onset Dates Condition Statu s Problem Unspecified cardiac dysrhythmia 427.9 Active Problem Costochondritis 733.6 Active Problem Diabetes 250.00 Active Medications No Known Medications Results No Known Results Summary Purpose eClinicalWorks Submission
--- OUTSIDE RECORDS SUMMARY | 2019-11-01 20:33 | XMS REPORT ---
Author Author Nyasia RUIZ Organization eClinicalWorks Address Unknown Phone Unavailable Care Team Providers Care Mathematical Sciences Professor Name Role Phone IRVIN RUIZ CP Unavailable Allergies, Adverse Reactions, Alerts Substance Reaction Event Type Metformin HCl Info Not Available Drug Allergy Glucotrol XL Info Not Available Drug Allergy Doxycycline Hyclate Info Not Available Drug Allergy Problems Problem Type Condition Code Onset Dates Condition Statu s Problem Unspecified cardiac dysrhythmia 427.9 Active Problem Costochondritis 733.6 Active Problem Diabetes 250.00 Active Assessment Dysfunction of left eustachian tube H69.82 Active Medications Medication Code System Code Instructions Start Date End Date Status Dosage Atenolol [facility] 12152406391 50 MG TAKE ONE TA BLET BY MOUTH DAILY GlipiZIDE ER [facility] [place] [address]-07 5 MG Orally TAKE ONE TABLET BY MOUTH TWICE DAILY Januvia [facility] [place] [address]-36 100 MG Once a day Apr 21, 2014 1 Tablet by Oral route 1 time per day Silvadene [facility] [place] [address]-64 1 % Externally Once a day Jul 04, 2015 1 application to affected area Actos [facility] [address]-86 30 MG Orally Once a day Apr 25, 2015 1 tablet Procedures Procedure Coding System Code Date Office Visit, Est Pt., Level 3 CPT-4 13972 D 2014 Vital Signs Date/Time: Jul 17, 2015 Temperature 98.0 F Weight 206.0 lbs Height 63 in BMI 36.49 Index Blood Pressure Diastolic 80 mmHg Blood Pressure Systolic 144 mmHg Cardiac Monitoring Heart Rate 88 bpm Results No Known Results Summary Purpose eClinicalWorks Submission
--- OUTSIDE RECORDS SUMMARY | 2019-11-01 20:33 | XMS REPORT | Continuity of Care Document ---
Author Organization Unknown Address Unknown Phone Unavailable Allergies Active Description Code Type Severity Reaction Onset Reported/Identified Relationship to Patient Clinical Status Yes shrimp Food Allergy N/A N/A 11/03/2008 Yes shrimp Food Allergy 11/03/2008 Yes metformin Drug Allergy N/A N/A 01/18/2009 Yes metformin Drug Allergy 01/18/2009 Yes Lipitor Drug Allergy N/A N/A 10/11/2010 Yes Lipitor Drug Allergy 10/11/2010 Yes doxycycline hyclate 100 mg Tablet Drug Allergy N/A N/A 09/27/2011 Yes doxycycline hyclate 100 mg Tablet Drug Allergy 09/27/2011 Yes metformin [id number] Drug Allergy Severe HEADACHES 11/04/2013 Yes Glucotrol XL 2.5 mg tablet extended rele ase 24hr Drug Allergy N/A N/A Medications There is no data. Problems Date Dx Coded Attending Type Code Diagnosis Diagnosed By 11/03/2008 RYLAN COTA DO 250.02 DIABETES MELLITUS POORLY CONTROLLED 11/03/2008 RYLAN COTA DO 599.0 Urinary Tract Infection 11/03/2008 RYLAN COTA DO 250.02 DIABETES MELLITUS POORLY CONTROLLED 11/03/2008 RYLAN COTA DO 599.0 Urinary Tract Infection 11/03/2008 250.02 ABIGAIL BETES MELLITUS POORLY CONTROLLED 11/03/2008 599.0 Urin fazal Tract Infection 11/03/2008 250.02 ABIGAIL BETES MELLITUS POORLY CONTROLLED 11/03/2008 599.0 Urin fazal Tract Infection 11/03/2008 250.02 ABIGAIL BETES MELLITUS POORLY CONTROLLED 11/03/2008 599.0 Urin fazal Tract Infection 11/03/2008 250.02 ABIGAIL BETES MELLITUS POORLY CONTROLLED 11/03/2008 599.0 Urin fazal Tract Infection 11/03/2008 250.02 ABIGAIL BETES MELLITUS POORLY CONTROLLED 11/03/2008 599.0 Urin fazal Tract Infection 11/03/2008 250.02 ABIGAIL BETES MELLITUS POORLY CONTROLLED 11/03/2008 599.0 Urin fazal Tract Infection 11/03/2008 JOSEPH SCRUGGSN, IRVIN S 250.02 DIABETES MELLITUS POORLY CONTROLLED 11/03/2008 JOSEPH EARLY CHILDHOOD ASSISTANT, IRVIN S 599.0 Urinary Tract Infection 11/03/2008 CARRIE DDS, RYAN M 250.02 DIABETES MELLITUS POORLY CONTROLLED 11/03/2008 CARRIE DDS, RYAN M 599.0 Urinary Tract Infection 11/03/2008 OKEEFE KERVINERO EARLY CHILDHOOD ASSISTANT, JULIETTE N 250.02 DIABETES MELLITUS POORLY CONTROLLED 11/03/2008 OKEEFE CASHERO EARLY CHILDHOOD ASSISTANT, JULIETTE N 599.0 Urinary Tract Infection 11/03/2008 RUDOLPH EARLY CHILDHOOD ASSISTANT, FADIA T 250.02 DIABETES MELLITUS POORLY CONTROLLED 11/03/2008 RUDOLPH GOINS FADIA T 59 9.0 Urinary Tract Infection 11/03/2008 COTA DO, RYLAN K 250.02 DIABETES MELLITUS POORLY CONTROLLED 11/03/2008 COTA DO, RYLAN K 599.0 Urinary Tract Infection 11/03/2008 JOSEPH GOINS, IRVIN S 250.02 DIABETES MELLITUS POORLY CONTROLLED 11/03/2008 JOSEPH SCRUGGSN, IRVIN S 599.0 Urinary Tract Infection 11/03/2008 JOSEPH SCRUGGSN, IRVIN S 250.02 DIABETES MELLITUS POORLY CONTROLLED 11/03/2008 JOSEPH SCRUGGSN, IRVIN S 599.0 Urinary Tract Infection 11/03/2008 BRICE EARLY CHILDHOOD ASSISTANT, CANDY A 250.02 DIABETES MELLITUS POORLY CONTROLLED 11/03/2008 BRICE EARLY CHILDHOOD ASSISTANT, CANDY A 59 9.0 Urinary Tract Infection 11/03/2008 BRICE EARLY CHILDHOOD ASSISTANT, CANDY A 250.02 DIABETES MELLITUS POORLY CONTROLLED 11/03/2008 BRICE EARLY CHILDHOOD ASSISTANT, CANDY A 59 9.0 Urinary Tract Infection 11/03/2008 COTA DO, RYLAN K 250.02 DIABETES MELLITUS POORLY CONTROLLED 11/03/2008 COTA DO, RYLAN K 599.0 Urinary Tract Infection 11/03/2008 JONO IVERSON APRNRICIA R 250.02 DIABETES MELLITUS POORLY CONTROLLED 11/03/2008 KISHOR GOINS HARRIET R 599.0 Urinary Tract Infection 11/03/2008 JOSEPH GOINS, IRVIN S 250.02 DIABETES MELLITUS POORLY CONTROLLED 11/03/2008 JOSEPH GOINS IRVIN S 599.0 Urinary Tract Infection 01/06/2009 COTA DO, RYLAN K 477.9 Rhinitis 01/06/2009 COTA DO, RYLAN K 709.9 Dermatitis Other Skin Disorders 01/06/2009 COTA DO, RYLAN K 477.9 Rhinitis 01/06/2009 COTA DO, RYLAN K 709.9 Dermatitis Other Skin Disorders 01/06/2009 477.9 Rhinitis 01/06/2009 709.9 Derm atitis Other Skin Disorders 01/06/2009 477.9 Rhinitis 01/06/2009 709.9 Derm atitis Other Skin Disorders 01/06/2009 477.9 Rhinitis 01/06/2009 709.9 Derm atitis Other Skin Disorders 01/06/2009 477.9 Rhinitis 01/06/2009 709.9 Derm atitis Other Skin Disorders 01/06/2009 477.9 Rhinitis 01/06/2009 709.9 Derm atitis Other Skin Disorders 01/06/2009 477.9 Rhinitis 01/06/2009 709.9 Derm atitis Other Skin Disorders 01/06/2009 IRVIN RUIZ APRN S 477.9 Rhinitis 01/06/2009 ALLY RUIZ APRNA S 709.9 Dermatitis Other Skin Disorders 01/06/2009 RYAN BUTLER DDS M 477.9 Rhinitis 01/06/2009 RYAN BUTLER DDS 709.9 Dermatitis Other Skin Disorders 01/06/2009 JULIETTE TAYLOR APRN N 477.9 Rhinitis 01/06/2009 JULIETTE TAYLOR APRN N 709.9 Dermatitis Other Skin Disorders 01/06/2009 FADIA GALDAMEZ APRN 47 7.9 Rhinitis 01/06/2009 FADIA GALDAMEZ APRN 70 9.9 Dermatitis Other Skin Disorders 01/06/2009 COTA DO RYLAN K 477.9 Rhinitis 01/06/2009 COTA DO RYLAN K 709.9 Dermatitis Other Skin Disorders 01/06/2009 ALLY RUIZ APRNA S 477.9 Rhinitis 01/06/2009 MIKE RUIZ APRNNDA S 709.9 Dermatitis Other Skin Disorders 01/06/2009 ALLY RUIZ APRNA S 477.9 Rhinitis 01/06/2009 ALLY RUIZ APRNA S 709.9 Dermatitis Other Skin Disorders 01/06/2009 BRICE EARLY CHILDHOOD ASSISTANT, CANDY A 47 7.9 Rhinitis 01/06/2009 BRICE EARLY CHILDHOOD ASSISTANT, CANDY A 70 9.9 Dermatitis Other Skin Disorders 01/06/2009 BRICE EARLY CHILDHOOD ASSISTANT, CANDY A 47 7.9 Rhinitis 01/06/2009 BRICE EARLY CHILDHOOD ASSISTANT, CANDY A 70 9.9 Dermatitis Other Skin Disorders 01/06/2009 COTA SAGAR BRIGHTA K 477.9 Rhinitis 01/06/2009 COTA SAGAR BRIGHTA K 709.9 Dermatitis Other Skin Disorders 01/06/2009 IVERSON BRISEIDA, HARRIET R 477.9 Rhinitis 01/06/2009 IVERSON EARLY CHILDHOOD ASSISTANT, HARRIET R 709.9 Dermatitis Other Skin Disorders 01/06/2009 ALLY RUIZ APRNA S 477.9 Rhinitis 01/06/2009 MIKE RUIZ APRNNDA S 709.9 Dermatitis Other Skin Disorders 01/18/2009 RYLAN COTA DO K 250.00 DIABETES MELLITUS TYPE II 01/18/2009 RYLAN COTA DO K 250.00 DIABETES MELLITUS TYPE II 01/18/2009 250.00 ABIGAIL BETES MELLITUS TYPE II 01/18/2009 250.00 ABIGAIL BETES MELLITUS TYPE II 01/18/2009 250.00 ABIGAIL BETES MELLITUS TYPE II 01/18/2009 250.00 ABIGAIL BETES MELLITUS TYPE II 01/18/2009 250.00 ABIGAIL BETES MELLITUS TYPE II 01/18/2009 250.00 ABIGAIL BETES MELLITUS TYPE II 01/18/2009 IRVIN RUIZ APRN S 250.00 DIABETES MELLITUS TYPE II 01/18/2009 RYAN BUTLER DDS 250.00 DIABETES MELLITUS TYPE II 01/18/2009 JULIETTE TAYLOR APRN 250.00 DIABETES MELLITUS TYPE II 01/18/2009 FADIA GALDAMEZ APRN 250.00 DIABETES MELLITUS TYPE II 01/18/2009 RYLAN COTA DO K 250.00 DIABETES MELLITUS TYPE II 01/18/2009 IRVIN RUIZ APRN S 250.00 DIABETES MELLITUS TYPE II 01/18/2009 IRVIN RUIZ APRN S 250.00 DIABETES MELLITUS TYPE II 01/18/2009 KATIE NARVAEZ APRNIDI A 250.00 DIABETES MELLITUS TYPE II 01/18/2009 BRICE GOINS CANDY A 250.00 DIABETES MELLITUS TYPE II 01/18/2009 CIPRIANO BRIGHT RYLAN K 250.00 DIABETES MELLITUS TYPE II 01/18/2009 KISHOR EARLY CHILDHOOD ASSISTANTMARNIEJAMES Mix 250.00 DIABETES MELLITUS TYPE II 01/18/2009 JOSEPH EARLY CHILDHOOD ASSISTANTMIKEIRVIN S 250.00 DIABETES MELLITUS TYPE II 05/18/2009 CIPRIANO BRIGHT RYLAN K 388.70 Earache 05/18/2009 COTA DO RYLAN K 461.1 Sinusitis Acute Frontal 05/18/2009 CIPRIANO BRIGHT RYLAN K 780.60 Fever [as Symptom] 05/18/2009 CIPRIANO BRIGHT, RYLAN K 784.0 Headache 05/18/2009 COTA , RYLAN K 388.70 Earache 05/18/2009 COTA , RYLAN K 461.1 Sinusitis Acute Frontal 05/18/2009 CIPRIANO BRIGHT, RYLAN K 780.60 Fever [as Symptom] 05/18/2009 CIPRIANO BRIGHT, RYLAN K 784.0 Headache 05/18/2009 388.70 Earache 05/18/2009 461.1 Sinu sitis Acute Frontal 05/18/2009 780.60 Fev er [as Symptom] 05/18/2009 784.0 Headache 05/18/2009 388.70 Earache 05/18/2009 461.1 Sinu sitis Acute Frontal 05/18/2009 780.60 Fev er [as Symptom] 05/18/2009 784.0 Headache 05/18/2009 388.70 Earache 05/18/2009 461.1 Sinu sitis Acute Frontal 05/18/2009 780.60 Fev er [as Symptom] 05/18/2009 784.0 Headache 05/18/2009 388.70 Earache 05/18/2009 461.1 Sinu sitis Acute Frontal 05/18/2009 780.60 Fev er [as Symptom] 05/18/2009 784.0 Headache 05/18/2009 388.70 Earache 05/18/2009 461.1 Sinu sitis Acute Frontal 05/18/2009 780.60 Fev er [as Symptom] 05/18/2009 784.0 Headache 05/18/2009 388.70 Earache 05/18/2009 461.1 Sinu sitis Acute Frontal 05/18/2009 780.60 Fev er [as Symptom] 05/18/2009 784.0 Headache 05/18/2009 JOSEPH GOINS, IRVIN S 388.70 Earache 05/18/2009 JOSEPH GOINS, IRVIN S 461.1 Sinusitis Acute Frontal 05/18/2009 JOSEPH EARLY CHILDHOOD ASSISTANT, IRVIN S 780.60 Fever [as Symptom] 05/18/2009 JOSEPH GOINS, IRVIN S 784.0 Headache 05/18/2009 CARRIE DDS, RYAN M 388.70 Earache 05/18/2009 CARRIE DDS, RYAN M 461.1 Sinusitis Acute Frontal 05/18/2009 CARRIE DDS, RYAN M 780.60 Fever [as Symptom] 05/18/2009 CARRIE DDS, RYAN M 784.0 Headache 05/18/2009 MALDONADO WEBB EARLY CHILDHOOD ASSISTANT, JULIETTE N 388.70 Earache 05/18/2009 OKEEFE CASHERO EARLY CHILDHOOD ASSISTANT, JULIETTE N 461.1 Sinusitis Acute Frontal 05/18/2009 OKEEFE KERVINERO EARLY CHILDHOOD ASSISTANT, JULIETTE N 780.60 Fever [as Symptom] 05/18/2009 OKEEFE KERVINERO EARLY CHILDHOOD ASSISTANT, JULIETTE N 784.0 Headache 05/18/2009 FADIA GALDAMEZ APRN T 388.70 Earache 05/18/2009 FADIA GALDAMEZ APRN T 46 1.1 Sinusitis Acute Frontal 05/18/2009 RUDOLPH GOINS FADIA T 780.60 Fever [as Symptom] 05/18/2009 RUDOLPH GOINS FADIA T 78 4.0 Headache 05/18/2009 COTA DO, RYLAN K 388.70 Earache 05/18/2009 COTA DO, RYLAN K 461.1 Sinusitis Acute Frontal 05/18/2009 COTA DO, RYLAN K 780.60 Fever [as Symptom] 05/18/2009 COTA DO, RYLAN K 784.0 Headache 05/18/2009 JOSEPH EARLY CHILDHOOD ASSISTANT, IRVIN S 388.70 Earache 05/18/2009 JOSEPH EARLY CHILDHOOD ASSISTANT, IRVIN S 461.1 Sinusitis Acute Frontal 05/18/2009 JOSEPH EARLY CHILDHOOD ASSISTANT, IRVIN S 780.60 Fever [as Symptom] 05/18/2009 JOSEPH EARLY CHILDHOOD ASSISTANT, IRVIN S 784.0 Headache 05/18/2009 JOSEPH GOINS, IRVIN S 388.70 Earache 05/18/2009 JOSEPH EARLY CHILDHOOD ASSISTANT, IRVIN S 461.1 Sinusitis Acute Frontal 05/18/2009 JOSEPH EARLY CHILDHOOD ASSISTANT, IRVIN S 780.60 Fever [as Symptom] 05/18/2009 JOSEPH EARLY CHILDHOOD ASSISTANT, IRVIN S 784.0 Headache 05/18/2009 KATIE NARVAEZ APRNIDI A 388.70 Earache 05/18/2009 BRICE EARLY CHILDHOOD ASSISTANT, CANDY A 46 1.1 Sinusitis Acute Frontal 05/18/2009 BRICE EARLY CHILDHOOD ASSISTANT, CANDY A 780.60 Fever [as Symptom] 05/18/2009 BRICE APRN, CANDY A 78 4.0 Headache 05/18/2009 BRICE APRN, CANDY A 388.70 Earache 05/18/2009 BRICE GOINS, CANDY A 46 1.1 Sinusitis Acute Frontal 05/18/2009 BRICE GOINS, CANDY A 780.60 Fever [as Symptom] 05/18/2009 BRICE GOINS CANDY A 78 4.0 Headache 05/18/2009 COTA DO, RYLAN K 388.70 Earache 05/18/2009 COTA DO, RYLAN K 461.1 Sinusitis Acute Frontal 05/18/2009 COTA DO, RYLAN K 780.60 Fever [as Symptom] 05/18/2009 COTA DO, RYLAN K 784.0 Headache 05/18/2009 IVERSON EARLY CHILDHOOD ASSISTANT, HARRIET R 388.70 Earache 05/18/2009 IVERSON EARLY CHILDHOOD ASSISTANT, HARRIET R 461.1 Sinusitis Acute Frontal 05/18/2009 IVERSON EARLY CHILDHOOD ASSISTANT, HARRIET R 780.60 Fever [as Symptom] 05/18/2009 IVERSON EARLY CHILDHOOD ASSISTANT, HARRIET R 784.0 Headache 05/18/2009 JOSEPH EARLY CHILDHOOD ASSISTANT, IRVIN S 388.70 Earache 05/18/2009 JOSEPH EARLY CHILDHOOD ASSISTANT, IRVIN S 461.1 Sinusitis Acute Frontal 05/18/2009 JOSEPH EARLY CHILDHOOD ASSISTANT, IRVIN S 780.60 Fever [as Symptom] 05/18/2009 JOSEPH EARLY CHILDHOOD ASSISTANT, IRVIN S 784.0 Headache 06/23/2009 COTA DO, RYLAN K 381.81 Eustachian Tube Dysfunction 06/23/2009 COTA DO RYLAN K 788.1 Dysuria 06/23/2009 COTA DO, RYLAN K V72.31 Track Leader Exam, Routine 06/23/2009 COTA DO, RYLAN K 381.81 Eustachian Tube Dysfunction 06/23/2009 COTA DO, RYLAN K 788.1 Dysuria 06/23/2009 COTA DO, RYLAN K V72.31 Track Leader Exam, Routine 06/23/2009 381.81 Eus tachian Tube Dysfunction 06/23/2009 788.1 Dysuria 06/23/2009 V72.31 Track Leader Exam, Routine 06/23/2009 381.81 Eus tachian Tube Dysfunction 06/23/2009 788.1 Dysuria 06/23/2009 V72.31 Track Leader Exam, Routine 06/23/2009 381.81 Eus tachian Tube Dysfunction 06/23/2009 788.1 Dysuria 06/23/2009 V72.31 Track Leader Exam, Routine 06/23/2009 381.81 Eus tachian Tube Dysfunction 06/23/2009 788.1 Dysuria 06/23/2009 V72.31 Track Leader Exam, Routine 06/23/2009 381.81 Eus tachian Tube Dysfunction 06/23/2009 788.1 Dysuria 06/23/2009 V72.31 Track Leader Exam, Routine 06/23/2009 381.81 Eus tachian Tube Dysfunction 06/23/2009 788.1 Dysuria 06/23/2009 V72.31 Track Leader Exam, Routine 06/23/2009 IRVIN RUIZ APRN 381.81 Eustachian Tube Dysfunction 06/23/2009 IRVIN RUIZ APRN S 788.1 Dysuria 06/23/2009 IRVIN RUIZ APRN S V72.31 Track Leader Exam, Routine 06/23/2009 RYAN BUTLER DDS 381.81 Eustachian Tube Dysfunction 06/23/2009 RYAN BUTLER DDS 788.1 Dysuria 06/23/2009 RYAN BUTLER DDS V72.31 Track Leader Exam, Routine 06/23/2009 JULIETTE TAYLOR APRN 381.81 Eustachian Tube Dysfunction 06/23/2009 JULIETTE TAYLOR APRN 788.1 Dysuria 06/23/2009 JULIETTE TAYLOR APRN N V72.31 Track Leader Exam, Routine 06/23/2009 RUDOLPH EARLY CHILDHOOD ASSISTANT, FADIA T 381.81 Eustachian Tube Dysfunction 06/23/2009 FADIA GALDAMEZ APRN 78 8.1 Dysuria 06/23/2009 FADIA GALDAMEZ APRN V72.31 Track Leader Exam, Routine 06/23/2009 COTA DO, RYLAN K 381.81 Eustachian Tube Dysfunction 06/23/2009 COTA DO, RYLAN K 788.1 Dysuria 06/23/2009 COTA DO, RYLAN K V72.31 Track Leader Exam, Routine 06/23/2009 JOSEPH GOINS IRVIN S 381.81 Eustachian Tube Dysfunction 06/23/2009 JOSEPH GOINS IRVIN S 788.1 Dysuria 06/23/2009 JOSEPH GOINS IRVIN S V72.31 Track Leader Exam, Routine 06/23/2009 MIKE RUIZ APRNNDA S 381.81 Eustachian Tube Dysfunction 06/23/2009 JOSEPH GOINS IRVIN S 788.1 Dysuria 06/23/2009 JOSEPH GOINS IRVIN S V72.31 Track Leader Exam, Routine 06/23/2009 BRICE GOINS CANDY A 381.81 Eustachian Tube Dysfunction 06/23/2009 BRICEJUAN GOINS CANDY A 78 8.1 Dysuria 06/23/2009 BRICE GOINS CANDY A V72.31 Track Leader Exam, Routine 06/23/2009 BRICE GOINS CANDY A 381.81 Eustachian Tube Dysfunction 06/23/2009 BRICE GOINS CANDY A 78 8.1 Dysuria 06/23/2009 BRICE GOINS CANDY A V72.31 Track Leader Exam, Routine 06/23/2009 COTA DO, RYLAN K 381.81 Eustachian Tube Dysfunction 06/23/2009 COTA DO, RYLAN K 788.1 Dysuria 06/23/2009 COTA DO, RYLAN K V72.31 Track Leader Exam, Routine 06/23/2009 JONO IVERSON APRNRICIA R 381.81 Eustachian Tube Dysfunction 06/23/2009 JONO IVERSON APRNRICIA R 788.1 Dysuria 06/23/2009 KISHOR GOINS HARRIET R V72.31 Track Leader Exam, Routine 06/23/2009 MIKE RUIZ APRNNDA S 381.81 Eustachian Tube Dysfunction 06/23/2009 IRVIN RUIZ APRN 788.1 Dysuria 06/23/2009 IRVIN RUIZ APRN V72.31 Track Leader Exam, Routine 08/17/2009 RYLAN COTA DO 368.14 Seeing Objects Distorted In Size Or Shape 08/17/2009 RYLAN COTA DO 368.14 Seeing Objects Distorted In Size Or Shape 08/17/2009 368.14 See ing Objects Distorted In Size Or Shape 08/17/2009 368.14 See ing Objects Distorted In Size Or Shape 08/17/2009 368.14 See ing Objects Distorted In Size Or Shape 08/17/2009 368.14 See ing Objects Distorted In Size Or Shape 08/17/2009 368.14 See ing Objects Distorted In Size Or Shape 08/17/2009 368.14 See ing Objects Distorted In Size Or Shape 08/17/2009 IRVIN RUIZ APRN 368.14 Seeing Objects Distorted In Size Or Shape 08/17/2009 RYAN BUTLER DDS 368.14 Seeing Objects Distorted In Size Or Shape 08/17/2009 JULIETTE TAYLOR APRN 368.14 Seeing Objects Distorted In Size Or Shape 08/17/2009 FADIA GALDAMEZ APRN 368.14 Seeing Objects Distorted In Size Or Shape 08/17/2009 RYLAN COTA DO 368.14 Seeing Objects Distorted In Size Or Shape 08/17/2009 IRVIN RUIZ APRN 368.14 Seeing Objects Distorted In Size Or Shape 08/17/2009 IRVIN RUIZ APRN 368.14 Seeing Objects Distorted In Size Or Shape 08/17/2009 CANDY NARVAEZ APRN 368.14 Seeing Objects Distorted In Size Or Shape 08/17/2009 CANDY NARVAEZ APRN A 368.14 Seeing Objects Distorted In Size Or Shape 08/17/2009 RYLAN COTA DO 368.14 Seeing Objects Distorted In Size Or Shape 08/17/2009 HARRIET IVERSON APRN 368.14 Seeing Objects Distorted In Size Or Shape 08/17/2009 IRVIN RUIZ APRN S 368.14 Seeing Objects Distorted In Size Or Shape 09/04/2009 RYLAN COTA DO 461.9 Sinusitis Acute 09/04/2009 COTA DO, RYLAN K 461.9 Sinusitis Acute 09/04/2009 461.9 Sinu sitis Acute 09/04/2009 461.9 Sinu sitis Acute 09/04/2009 461.9 Sinu sitis Acute 09/04/2009 461.9 Sinu sitis Acute 09/04/2009 461.9 Sinu sitis Acute 09/04/2009 461.9 Sinu sitis Acute 09/04/2009 JOSEPH SCRUGGSN, IRVIN S 461.9 Sinusitis Acute 09/04/2009 RYAN BUTLER DDS 461.9 Sinusitis Acute 09/04/2009 MALDONADO WEBB EARLY CHILDHOOD ASSISTANT, JULIETTE N 461.9 Sinusitis Acute 09/04/2009 RUDOLPH EARLY CHILDHOOD ASSISTANTFADIA Miguel 46 1.9 Sinusitis Acute 09/04/2009 RYLAN COTA DO K 461.9 Sinusitis Acute 09/04/2009 JOSEPH SCRUGGSN, IRVIN S 461.9 Sinusitis Acute 09/04/2009 JOSEPH SCRUGGSN, IRVIN S 461.9 Sinusitis Acute 09/04/2009 BRICE EARLY CHILDHOOD ASSISTANT, CANDY A 46 1.9 Sinusitis Acute 09/04/2009 BRICE EARLY CHILDHOOD ASSISTANT, CANDY A 46 1.9 Sinusitis Acute 09/04/2009 RYLAN COTA DO 461.9 Sinusitis Acute 09/04/2009 KISHOR EARLY CHILDHOOD ASSISTANT, HARRIET R 461.9 Sinusitis Acute 09/04/2009 JOSEPH GOINS, IRVIN S 461.9 Sinusitis Acute 09/18/2009 RYLAN COTA DO 381.01 Otitis Media, Acute Serous 09/18/2009 RYLAN COTA DO 381.01 Otitis Media, Acute Serous 09/18/2009 381.01 Ada tis Media, Acute Serous 09/18/2009 381.01 Ada tis Media, Acute Serous 09/18/2009 381.01 Ada tis Media, Acute Serous 09/18/2009 381.01 Ada tis Media, Acute Serous 09/18/2009 381.01 Ada tis Media, Acute Serous 09/18/2009 381.01 Ada tis Media, Acute Serous 09/18/2009 IRVIN RUIZ APRN S 381.01 Otitis Media, Acute Serous 09/18/2009 CARRIE DDS, RYAN M 381.01 Otitis Media, Acute Serous 09/18/2009 MALDONADO GALEANAERO EARLY CHILDHOOD ASSISTANT, JULIETTE N 381.01 Otitis Media, Acute Serous 09/18/2009 RUDOLPH EARLY CHILDHOOD ASSISTANTFADIA Miguel T 381.01 Otitis Media, Acute Serous 09/18/2009 SAGAR COTA DOA K 381.01 Otitis Media, Acute Serous 09/18/2009 JOSEPH EARLY CHILDHOOD ASSISTANT, IRVIN S 381.01 Otitis Media, Acute Serous 09/18/2009 JOSEPH EARLY CHILDHOOD ASSISTANT, IRVIN S 381.01 Otitis Media, Acute Serous 09/18/2009 BRICE EARLY CHILDHOOD ASSISTANT, CANDY A 381.01 Otitis Media, Acute Serous 09/18/2009 BRICE EARLY CHILDHOOD ASSISTANT, CANDY A 381.01 Otitis Media, Acute Serous 09/18/2009 SAGAR COTA DOA K 381.01 Otitis Media, Acute Serous 09/18/2009 HARRIET IVERSON APRN R 381.01 Otitis Media, Acute Serous 09/18/2009 JOSEPH EARLY CHILDHOOD ASSISTANT, IRVIN S 381.01 Otitis Media, Acute Serous 10/13/2009 SAGAR COTA DOA K 462 Sore Throat 10/13/2009 COTA , RYLAN K 462 Sore Throat 10/13/2009 462 Sore T hroat 10/13/2009 462 Sore T hroat 10/13/2009 462 Sore T hroat 10/13/2009 462 Sore T hroat 10/13/2009 462 Sore T hroat 10/13/2009 462 Sore T hroat 10/13/2009 JOSEPH GOINS IRVIN S 462 Sore Throat 10/13/2009 RYAN BUTLER DDS M 4 62 Sore Throat 10/13/2009 OKEEFE KERVINMARISSA EARLY CHILDHOOD ASSISTANT, JULIETTE N 462 Sore Throat 10/13/2009 FADIA GALDAMEZ APRN T 46 2 Sore Throat 10/13/2009 COTA DO, RYLAN K 462 Sore Throat 10/13/2009 JOSEPH EARLY CHILDHOOD ASSISTANT, IRVIN S 462 Sore Throat 10/13/2009 JOSEPH EARLY CHILDHOOD ASSISTANT, IRVIN S 462 Sore Throat 10/13/2009 BRICE EARLY CHILDHOOD ASSISTANT, CANDY A 46 2 Sore Throat 10/13/2009 BRICE EARLY CHILDHOOD ASSISTANT, CANDY A 46 2 Sore Throat 10/13/2009 COTA DO, RYLAN K 462 Sore Throat 10/13/2009 HARRIET IVERSON APRN 462 Sore Throat 10/13/2009 IRVIN RUIZ APRN S 462 Sore Throat 01/12/2010 RYLAN COTA DO K 616.0 Cervicitis And Endocervicitis 01/12/2010 SAGAR COTA DOA K 616.10 Vaginitis Vulvovaginitis Unspecified 01/12/2010 SAGAR COTA DOA K 616.0 Cervicitis And Endocervicitis 01/12/2010 CIPRIANO BRIGHT, RYLAN K 616.10 Vaginitis Vulvovaginitis Unspecified 01/12/2010 616.0 Cerv icitis And Endocervicitis 01/12/2010 616.10 Vag initis Vulvovaginitis Unspecified 01/12/2010 616.0 Cerv icitis And Endocervicitis 01/12/2010 616.10 Vag initis Vulvovaginitis Unspecified 01/12/2010 616.0 Cerv icitis And Endocervicitis 01/12/2010 616.10 Vag initis Vulvovaginitis Unspecified 01/12/2010 616.0 Cerv icitis And Endocervicitis 01/12/2010 616.10 Vag initis Vulvovaginitis Unspecified 01/12/2010 616.0 Cerv icitis And Endocervicitis 01/12/2010 616.10 Vag initis Vulvovaginitis Unspecified 01/12/2010 616.0 Cerv icitis And Endocervicitis 01/12/2010 616.10 Vag initis Vulvovaginitis Unspecified 01/12/2010 IRVIN RUIZ APRN S 616.0 Cervicitis And Endocervicitis 01/12/2010 IRVIN RUIZ APRN S 616.10 Vaginitis Vulvovaginitis Unspecified 01/12/2010 RYAN BUTLER DDS 616.0 Cervicitis And Endocervicitis 01/12/2010 RYAN BUTLER DDS 616.10 Vaginitis Vulvovaginitis Unspecified 01/12/2010 JULIETTE TAYLOR APRN 616.0 Cervicitis And Endocervicitis 01/12/2010 MALDONADO WEBB APRN, JULIETTE N 616.10 Vaginitis Vulvovaginitis Unspecified 01/12/2010 FADIA GALDAMEZ APRN T 61 6.0 Cervicitis And Endocervicitis 01/12/2010 RUDOLPH SCRUGGSNFADIA T 616.10 Vaginitis Vulvovaginitis Unspecified 01/12/2010 RYLAN COTA DO K 616.0 Cervicitis And Endocervicitis 01/12/2010 RYLAN COTA DO K 616.10 Vaginitis Vulvovaginitis Unspecified 01/12/2010 JOSEPH EARLY CHILDHOOD ASSISTANT, IRVIN S 616.0 Cervicitis And Endocervicitis 01/12/2010 JOSEPH EARLY CHILDHOOD ASSISTANT, IRVIN S 616.10 Vaginitis Vulvovaginitis Unspecified 01/12/2010 JOSEPH EARLY CHILDHOOD ASSISTANT, IRVIN S 616.0 Cervicitis And Endocervicitis 01/12/2010 JOSEPH EARLY CHILDHOOD ASSISTANT, IRVIN S 616.10 Vaginitis Vulvovaginitis Unspecified 01/12/2010 BRICE EARLY CHILDHOOD ASSISTANT, CANDY A 61 6.0 Cervicitis And Endocervicitis 01/12/2010 BRICE EARLY CHILDHOOD ASSISTANT, CANDY A 616.10 Vaginitis Vulvovaginitis Unspecified 01/12/2010 BRICE EARLY CHILDHOOD ASSISTANT, CANDY A 61 6.0 Cervicitis And Endocervicitis 01/12/2010 BRICE EARLY CHILDHOOD ASSISTANT, CANDY A 616.10 Vaginitis Vulvovaginitis Unspecified 01/12/2010 RYLAN COTA DO K 616.0 Cervicitis And Endocervicitis 01/12/2010 CIPRIANO BRIGHT, RYLAN K 616.10 Vaginitis Vulvovaginitis Unspecified 01/12/2010 KISHOR EARLY CHILDHOOD ASSISTANT, HARRIET R 616.0 Cervicitis And Endocervicitis 01/12/2010 KISHOR EARLY CHILDHOOD ASSISTANT, HARRIET R 616.10 Vaginitis Vulvovaginitis Unspecified 01/12/2010 JOSEPH EARLY CHILDHOOD ASSISTANT, IRVIN S 616.0 Cervicitis And Endocervicitis 01/12/2010 JOSEPH EARLY CHILDHOOD ASSISTANT, IRVIN S 616.10 Vaginitis Vulvovaginitis Unspecified 02/10/2010 COTA DO, RYLAN K 112.1 Candidiasis, Of Vulva And Vagina 02/10/2010 COTA DO, RYLAN K 682.7 Other Cellulitis And Abscess, Foot, Except Toes 02/10/2010 COTA DO, RYLAN K 112.1 Candidiasis, Of Vulva And Vagina 02/10/2010 COTA DO, RYLAN K 682.7 Other Cellulitis And Abscess, Foot, Except Toes 02/10/2010 112.1 Cand idiasis, Of Vulva And Vagina 02/10/2010 682.7 Othe r Cellulitis And Abscess, Foot, Except Toes 02/10/2010 112.1 Cand idiasis, Of Vulva And Vagina 02/10/2010 682.7 Othe r Cellulitis And Abscess, Foot, Except Toes 02/10/2010 112.1 Cand idiasis, Of Vulva And Vagina 02/10/2010 682.7 Othe r Cellulitis And Abscess, Foot, Except Toes 02/10/2010 112.1 Cand idiasis, Of Vulva And Vagina 02/10/2010 682.7 Othe r Cellulitis And Abscess, Foot, Except Toes 02/10/2010 112.1 Cand idiasis, Of Vulva And Vagina 02/10/2010 682.7 Othe r Cellulitis And Abscess, Foot, Except Toes 02/10/2010 112.1 Cand idiasis, Of Vulva And Vagina 02/10/2010 682.7 Othe r Cellulitis And Abscess, Foot, Except Toes 02/10/2010 JOSEPH GOINS, IRVIN S 112.1 Candidiasis, Of Vulva And Vagina 02/10/2010 IRVIN RUIZ APRN S 682.7 Other Cellulitis And Abscess, Foot, Except Toes 02/10/2010 RYAN BUTLER DDS 112.1 Candidiasis, Of Vulva And Vagina 02/10/2010 RYAN BUTLER DDS 682.7 Other Cellulitis And Abscess, Foot, Except Toes 02/10/2010 MALDONADO WEBB APRN, JULIETTE N 112.1 Candidiasis, Of Vulva And Vagina 02/10/2010 MALDONADO WEBB APRN, JULIETTE N 682.7 Other Cellulitis And Abscess, Foot, Except Toes 02/10/2010 FADIA GALDAMEZ APRN 11 2.1 Candidiasis, Of Vulva And Vagina 02/10/2010 RUDOLPH EARLY CHILDHOOD ASSISTANT FADIA T 68 2.7 Other Cellulitis And Abscess, Foot, Except Toes 02/10/2010 RYALN COTA DO K 112.1 Candidiasis, Of Vulva And Vagina 02/10/2010 COTA DO, RYLAN K 682.7 Other Cellulitis And Abscess, Foot, Except Toes 02/10/2010 JOSEPH EARLY CHILDHOOD ASSISTANT, IRVIN S 112.1 Candidiasis, Of Vulva And Vagina 02/10/2010 JOSEPH EARLY CHILDHOOD ASSISTANT, IRVIN S 682.7 Other Cellulitis And Abscess, Foot, Except Toes 02/10/2010 JOSEPH EARLY CHILDHOOD ASSISTANT, IRVIN S 112.1 Candidiasis, Of Vulva And Vagina 02/10/2010 JOSEPH EARLY CHILDHOOD ASSISTANT, IRVIN S 682.7 Other Cellulitis And Abscess, Foot, Except Toes 02/10/2010 BRICE EARLY CHILDHOOD ASSISTANT, CANDY A 11 2.1 Candidiasis, Of Vulva And Vagina 02/10/2010 BRICE EARLY CHILDHOOD ASSISTANT, CANDY A 68 2.7 Other Cellulitis And Abscess, Foot, Except Toes 02/10/2010 BRICE EARLY CHILDHOOD ASSISTANT, CANDY A 11 2.1 Candidiasis, Of Vulva And Vagina 02/10/2010 BRICE EARLY CHILDHOOD ASSISTANT, CANDY A 68 2.7 Other Cellulitis And Abscess, Foot, Except Toes 02/10/2010 RYLAN COTA DO K 112.1 Candidiasis, Of Vulva And Vagina 02/10/2010 SAGAR COTA DOA K 682.7 Other Cellulitis And Abscess, Foot, Except Toes 02/10/2010 IVERSON EARLY CHILDHOOD ASSISTANT, HARRIET R 112.1 Candidiasis, Of Vulva And Vagina 02/10/2010 IVERSON EARLY CHILDHOOD ASSISTANT, HARRIET R 682.7 Other Cellulitis And Abscess, Foot, Except Toes 02/10/2010 JOSEPH EARLY CHILDHOOD ASSISTANT, IRVIN S 112.1 Candidiasis, Of Vulva And Vagina 02/10/2010 JOSEPH EARLY CHILDHOOD ASSISTANT, IRVIN S 682.7 Other Cellulitis And Abscess, Foot, Except Toes 05/07/2010 RYLAN COTA DO K 824.8 Fracture Of Ankle, Unspecified, Closed 05/07/2010 RYLAN COTA DO K 824.8 Fracture Of Ankle, Unspecified, Closed 05/07/2010 824.8 Frac ture Of Ankle, Unspecified, Closed 05/07/2010 824.8 Frac ture Of Ankle, Unspecified, Closed 05/07/2010 824.8 Frac ture Of Ankle, Unspecified, Closed 05/07/2010 824.8 Frac ture Of Ankle, Unspecified, Closed 05/07/2010 824.8 Frac ture Of Ankle, Unspecified, Closed 05/07/2010 824.8 Frac ture Of Ankle, Unspecified, Closed 05/07/2010 JOSEPH EARLY CHILDHOOD ASSISTANT, IRVIN S 824.8 Fracture Of Ankle, Unspecified, Closed 05/07/2010 CARRIE DDS, RYAN M 824.8 Fracture Of Ankle, Unspecified, Closed 05/07/2010 MALDONADO WEBB EARLY CHILDHOOD ASSISTANT, JULIETTE N 824.8 Fracture Of Ankle, Unspecified, Closed 05/07/2010 RUDOLPH EARLY CHILDHOOD ASSISTANT, FADIA Go 82 4.8 Fracture Of Ankle, Unspecified, Closed 05/07/2010 RYLAN COTA DO K 824.8 Fracture Of Ankle, Unspecified, Closed 05/07/2010 JOSEPH EARLY CHILDHOOD ASSISTANT, IRVIN S 824.8 Fracture Of Ankle, Unspecified, Closed 05/07/2010 JOSEPH EARLY CHILDHOOD ASSISTANT, IRVIN S 824.8 Fracture Of Ankle, Unspecified, Closed 05/07/2010 BRICE EARLY CHILDHOOD ASSISTANT, CANDY A 82 4.8 Fracture Of Ankle, Unspecified, Closed 05/07/2010 BRICE EARLY CHILDHOOD ASSISTANT, CANDY A 82 4.8 Fracture Of Ankle, Unspecified, Closed 05/07/2010 RYLAN COTA DO K 824.8 Fracture Of Ankle, Unspecified, Closed 05/07/2010 KISHOR EARLY CHILDHOOD ASSISTANT, HARRIET R 824.8 Fracture Of Ankle, Unspecified, Closed 05/07/2010 JOSEPH GOINS, IRVIN S 824.8 Fracture Of Ankle, Unspecified, Closed 05/10/2010 RYLAN COTA DO 824.2 Fracture Of Ankle, Lateral Malleolus, Closed 05/10/2010 RYLAN COTA DO 824.2 Fracture Of Ankle, Lateral Malleolus, Closed 05/10/2010 824.2 Frac ture Of Ankle, Lateral Malleolus, Closed 05/10/2010 824.2 Frac ture Of Ankle, Lateral Malleolus, Closed 05/10/2010 824.2 Frac ture Of Ankle, Lateral Malleolus, Closed 05/10/2010 824.2 Frac ture Of Ankle, Lateral Malleolus, Closed 05/10/2010 824.2 Frac ture Of Ankle, Lateral Malleolus, Closed 05/10/2010 824.2 Frac ture Of Ankle, Lateral Malleolus, Closed 05/10/2010 JOSEPH GOINS, IRVIN S 824.2 Fracture Of Ankle, Lateral Malleolus, Closed 05/10/2010 CARRIE DDS, RYAN M 824.2 Fracture Of Ankle, Lateral Malleolus, Closed 05/10/2010 MALDONADO WEBB APRN, JULIETTE Miguel 824.2 Fracture Of Ankle, Lateral Malleolus, Closed 05/10/2010 FADIA GALDAMEZ APRN 82 4.2 Fracture Of Ankle, Lateral Malleolus, Closed 05/10/2010 RYLAN COTA DO K 824.2 Fracture Of Ankle, Lateral Malleolus, Closed 05/10/2010 JOSEPH GOINS, IRVIN S 824.2 Fracture Of Ankle, Lateral Malleolus, Closed 05/10/2010 JOSEPH GOINS, IRVIN S 824.2 Fracture Of Ankle, Lateral Malleolus, Closed 05/10/2010 BRICE EARLY CHILDHOOD ASSISTANT, CANDY A 82 4.2 Fracture Of Ankle, Lateral Malleolus, Closed 05/10/2010 BRICE EARLY CHILDHOOD ASSISTANT, CANDY A 82 4.2 Fracture Of Ankle, Lateral Malleolus, Closed 05/10/2010 SAGAR COTA DOA K 824.2 Fracture Of Ankle, Lateral Malleolus, Closed 05/10/2010 HARRIET IVERSON APRN R 824.2 Fracture Of Ankle, Lateral Malleolus, Closed 05/10/2010 JOSEPH GOINS, IRVIN S 824.2 Fracture Of Ankle, Lateral Malleolus, Closed 05/17/2010 CIPRIANO BRIGHT RYLAN K 038.11 Mrsa 05/17/2010 COTA DO RYLAN K 038.11 Mrsa 05/17/2010 038.11 Mrsa 05/17/2010 038.11 Mrsa 05/17/2010 038.11 Mrsa 05/17/2010 038.11 Mrsa 05/17/2010 038.11 Mrsa 05/17/2010 038.11 Mrsa 05/17/2010 JOSEPH SCRUGGSN, IRVIN S 038.11 Mrsa 05/17/2010 RYAN BUTLER DDS 038.11 Mrsa 05/17/2010 MALDONADO WEBB EARLY CHILDHOOD ASSISTANT, JULIETTE N 038.11 Mrsa 05/17/2010 FADIA GALDAMEZ APRN 038.11 Mrsa 05/17/2010 COTA DO, RYLAN K 038.11 Mrsa 05/17/2010 JOSEPH EARLY CHILDHOOD ASSISTANT, IRVIN S 038.11 Mrsa 05/17/2010 JOSEPH EARLY CHILDHOOD ASSISTANT, IRVIN S 038.11 Mrsa 05/17/2010 BRICE EARLY CHILDHOOD ASSISTANT, CANDY A 038.11 Mrsa 05/17/2010 BRICE EARLY CHILDHOOD ASSISTANT, CANDY A 038.11 Mrsa 05/17/2010 COTA DO, RYLAN K 038.11 Mrsa 05/17/2010 KISHOR EARLY CHILDHOOD ASSISTANT, HARRIET R 038.11 Mrsa 05/17/2010 JOSEPH EARLY CHILDHOOD ASSISTANT, IRVIN S 038.11 Mrsa 05/31/2010 RYLAN COTA DO K 719.47 Pain In Joint Involving Ankle And Foot 05/31/2010 RYLAN COTA DO K 719.47 Pain In Joint Involving Ankle And Foot 05/31/2010 719.47 Benedict n In Joint Involving Ankle And Foot 05/31/2010 719.47 Benedict n In Joint Involving Ankle And Foot 05/31/2010 719.47 Benedict n In Joint Involving Ankle And Foot 05/31/2010 719.47 Benedict n In Joint Involving Ankle And Foot 05/31/2010 719.47 Benedict n In Joint Involving Ankle And Foot 05/31/2010 719.47 Benedict n In Joint Involving Ankle And Foot 05/31/2010 JOSEPH GOINS, IRVIN S 719.47 Pain In Joint Involving Ankle And Foot 05/31/2010 RYAN BUTLER DDS 719.47 Pain In Joint Involving Ankle And Foot 05/31/2010 JULIETTE TAYLOR APRN 719.47 Pain In Joint Involving Ankle And Foot 05/31/2010 FADIA GALDAMEZ APRN 719.47 Pain In Joint Involving Ankle And Foot 05/31/2010 RYLAN COTA DO K 719.47 Pain In Joint Involving Ankle And Foot 05/31/2010 MIKE RUIZ APRNNDA S 719.47 Pain In Joint Involving Ankle And Foot 05/31/2010 MIKE RUIZ APRNNDA S 719.47 Pain In Joint Involving Ankle And Foot 05/31/2010 KATIE NARVAEZ APRNIDI A 719.47 Pain In Joint Involving Ankle And Foot 05/31/2010 RBICELamont GOINS CANDY A 719.47 Pain In Joint Involving Ankle And Foot 05/31/2010 RYLAN COTA DO K 719.47 Pain In Joint Involving Ankle And Foot 05/31/2010 HARRIET IVERSON APRN R 719.47 Pain In Joint Involving Ankle And Foot 05/31/2010 MIKE RUIZ APRNNDA S 719.47 Pain In Joint Involving Ankle And Foot 07/31/2010 RYLAN COTA DO K 401.1 HYPERTENSION, BENIGN ESSENTIAL 07/31/2010 RYLAN COTA DO K V68.1 ISSUE OF REPEAT PRESCRIPTIONS 07/31/2010 RYLAN COTA DO K 401.1 HYPERTENSION, BENIGN ESSENTIAL 07/31/2010 RYLAN COTA DO K V68.1 ISSUE OF REPEAT PRESCRIPTIONS 07/31/2010 401.1 HYPE RTENSION, BENIGN ESSENTIAL 07/31/2010 V68.1 ISSU E OF REPEAT PRESCRIPTIONS 07/31/2010 401.1 HYPE RTENSION, BENIGN ESSENTIAL 07/31/2010 V68.1 ISSU E OF REPEAT PRESCRIPTIONS 07/31/2010 401.1 HYPE RTENSION, BENIGN ESSENTIAL 07/31/2010 V68.1 ISSU E OF REPEAT PRESCRIPTIONS 07/31/2010 401.1 HYPE RTENSION, BENIGN ESSENTIAL 07/31/2010 V68.1 ISSU E OF REPEAT PRESCRIPTIONS 07/31/2010 401.1 HYPE RTENSION, BENIGN ESSENTIAL 07/31/2010 V68.1 ISSU E OF REPEAT PRESCRIPTIONS 07/31/2010 401.1 HYPE RTENSION, BENIGN ESSENTIAL 07/31/2010 V68.1 ISSU E OF REPEAT PRESCRIPTIONS 07/31/2010 IRVIN RUIZ APRN S 401.1 HYPERTENSION, BENIGN ESSENTIAL 07/31/2010 ALLY RUIZ APRNA S V68.1 ISSUE OF REPEAT PRESCRIPTIONS 07/31/2010 RYAN BUTLER DDS 401.1 HYPERTENSION, BENIGN ESSENTIAL 07/31/2010 RYAN BUTLER DDS V68.1 ISSUE OF REPEAT PRESCRIPTIONS 07/31/2010 MALDONADO WEBB APRN, JULIETTE N 401.1 HYPERTENSION, BENIGN ESSENTIAL 07/31/2010 MALDONADO WEBB APRN, JULIETTE N V68.1 ISSUE OF REPEAT PRESCRIPTIONS 07/31/2010 RUDOLPH SCRUGGSLamont FADIA T 40 1.1 HYPERTENSION, BENIGN ESSENTIAL 07/31/2010 RUDOLPH GOINS, FADIA T V6 8.1 ISSUE OF REPEAT PRESCRIPTIONS 07/31/2010 COTA DO, RYLAN K 401.1 HYPERTENSION, BENIGN ESSENTIAL 07/31/2010 COTA DO, RYLAN K V68.1 ISSUE OF REPEAT PRESCRIPTIONS 07/31/2010 JOSEPH EARLY CHILDHOOD ASSISTANT, IRVIN S 401.1 HYPERTENSION, BENIGN ESSENTIAL 07/31/2010 JOSEPH EARLY CHILDHOOD ASSISTANT, IRVIN S V68.1 ISSUE OF REPEAT PRESCRIPTIONS 07/31/2010 JOSEPH EARLY CHILDHOOD ASSISTANT, IRVIN S 401.1 HYPERTENSION, BENIGN ESSENTIAL 07/31/2010 JOSEPH EARLY CHILDHOOD ASSISTANT, IRVIN S V68.1 ISSUE OF REPEAT PRESCRIPTIONS 07/31/2010 BRICE EARLY CHILDHOOD ASSISTANT, CANDY A 40 1.1 HYPERTENSION, BENIGN ESSENTIAL 07/31/2010 BRICE EARLY CHILDHOOD ASSISTANT, CANDY A V6 8.1 ISSUE OF REPEAT PRESCRIPTIONS 07/31/2010 BRICE EARLY CHILDHOOD ASSISTANT, CANDY A 40 1.1 HYPERTENSION, BENIGN ESSENTIAL 07/31/2010 BRICE EARLY CHILDHOOD ASSISTANT, CANDY A V6 8.1 ISSUE OF REPEAT PRESCRIPTIONS 07/31/2010 COTA DO, RYLAN K 401.1 HYPERTENSION, BENIGN ESSENTIAL 07/31/2010 COTA DO, RYLAN K V68.1 ISSUE OF REPEAT PRESCRIPTIONS 07/31/2010 JONO IVERSON APRNRICIA R 401.1 HYPERTENSION, BENIGN ESSENTIAL 07/31/2010 KISHOR GOINS HARRIET R V68.1 ISSUE OF REPEAT PRESCRIPTIONS 07/31/2010 JOSEPH EARLY CHILDHOOD ASSISTANT, IRVIN S 401.1 HYPERTENSION, BENIGN ESSENTIAL 07/31/2010 JOSEPH EARLY CHILDHOOD ASSISTANT, IRVIN S V68.1 ISSUE OF REPEAT PRESCRIPTIONS 03/07/2011 CIPRIANO DO RYLAN K 682.9 Cellulitis And Abscess Of Unspecified Sites 03/07/2011 CIPRIANO BRIGHT RYLAN K 682.9 Cellulitis And Abscess Of Unspecified Sites 03/07/2011 682.9 Cell ulitis And Abscess Of Unspecified Sites 03/07/2011 682.9 Cell ulitis And Abscess Of Unspecified Sites 03/07/2011 682.9 Cell ulitis And Abscess Of Unspecified Sites 03/07/2011 682.9 Cell ulitis And Abscess Of Unspecified Sites 03/07/2011 682.9 Cell ulitis And Abscess Of Unspecified Sites 03/07/2011 682.9 Cell ulitis And Abscess Of Unspecified Sites 03/07/2011 JOSEPH EARLY CHILDHOOD ASSISTANT, IRVIN S 682.9 Cellulitis And Abscess Of Unspecified Sites 03/07/2011 RYAN BUTLER DDS 682.9 Cellulitis And Abscess Of Unspecified Sites 03/07/2011 MALDONADO WEBB EARLY CHILDHOOD ASSISTANT, JULIETTE Miguel 682.9 Cellulitis And Abscess Of Unspecified Sites 03/07/2011 RUDOLPH EARLY CHILDHOOD ASSISTANTFADIA Miguel 68 2.9 Cellulitis And Abscess Of Unspecified Sites 03/07/2011 RYLAN COTA DO K 682.9 Cellulitis And Abscess Of Unspecified Sites 03/07/2011 JOSEPH EARLY CHILDHOOD ASSISTANT, IRVIN S 682.9 Cellulitis And Abscess Of Unspecified Sites 03/07/2011 JOSEPH EARLY CHILDHOOD ASSISTANT, IRVIN S 682.9 Cellulitis And Abscess Of Unspecified Sites 03/07/2011 BRICE EARLY CHILDHOOD ASSISTANT, CANDY A 68 2.9 Cellulitis And Abscess Of Unspecified Sites 03/07/2011 BRICE EARLY CHILDHOOD ASSISTANT, CANDY A 68 2.9 Cellulitis And Abscess Of Unspecified Sites 03/07/2011 RYLAN COTA DO 682.9 Cellulitis And Abscess Of Unspecified Sites 03/07/2011 HARRIET IVERSON APRN 682.9 Cellulitis And Abscess Of Unspecified Sites 03/07/2011 JOSEPH SCRUGGSNMIKEIRVIN S 682.9 Cellulitis And Abscess Of Unspecified Sites 06/18/2011 RYLAN COTA DO 719.43 Pain In Joint Involving Forearm 06/18/2011 RYLAN COTA DO 719.43 Pain In Joint Involving Forearm 06/18/2011 719.43 Benedict n In Joint Involving Forearm 06/18/2011 719.43 Benedict n In Joint Involving Forearm 06/18/2011 719.43 Benedict n In Joint Involving Forearm 06/18/2011 719.43 Benedict n In Joint Involving Forearm 06/18/2011 719.43 Benedict n In Joint Involving Forearm 06/18/2011 719.43 Benedict n In Joint Involving Forearm 06/18/2011 IRVIN RUIZ APRN S 719.43 Pain In Joint Involving Forearm 06/18/2011 RYAN BUTLER DDS 719.43 Pain In Joint Involving Forearm 06/18/2011 MALDONADO WEBB BRISEIDA JULIETTE N 719.43 Pain In Joint Involving Forearm 06/18/2011 FADIA GALDAMEZ APRN 719.43 Pain In Joint Involving Forearm 06/18/2011 RYLAN COTA DO K 719.43 Pain In Joint Involving Forearm 06/18/2011 IRVIN RUIZ APRN S 719.43 Pain In Joint Involving Forearm 06/18/2011 IRVIN RUIZ APRN S 719.43 Pain In Joint Involving Forearm 06/18/2011 CANDY NARVAEZ APRN A 719.43 Pain In Joint Involving Forearm 06/18/2011 CANDY NARVAEZ APRN A 719.43 Pain In Joint Involving Forearm 06/18/2011 RYLAN COTA DO K 719.43 Pain In Joint Involving Forearm 06/18/2011 HARRIET IVERSON APRN 719.43 Pain In Joint Involving Forearm 06/18/2011 IRVIN RUIZ APRN S 719.43 Pain In Joint Involving Forearm 09/25/2011 RYLAN COTA DO K 486 Pneumonia Unspecified 09/25/2011 RYLAN COTA DO K 786.2 Cough 09/25/2011 RYLAN COTA DO K 486 Pneumonia Unspecified 09/25/2011 RYLAN COTA DO K 786.2 Cough 09/25/2011 486 Pneumo maritza Unspecified 09/25/2011 786.2 Cough 09/25/2011 486 Pneumo maritza Unspecified 09/25/2011 786.2 Cough 09/25/2011 486 Pneumo maritza Unspecified 09/25/2011 786.2 Cough 09/25/2011 486 Pneumo maritza Unspecified 09/25/2011 786.2 Cough 09/25/2011 486 Pneumo maritza Unspecified 09/25/2011 786.2 Cough 09/25/2011 486 Pneumo maritza Unspecified 09/25/2011 786.2 Cough 09/25/2011 IRVIN RUIZ APRN S 486 Pneumonia Unspecified 09/25/2011 IRVIN RUIZ APRN 786.2 Cough 09/25/2011 CARRIE DDS, RYAN M 4 86 Pneumonia Unspecified 09/25/2011 CARRIE DDS, RYAN M 786.2 Cough 09/25/2011 MALDONADO GALEANAERO EARLY CHILDHOOD ASSISTANT, JULIETTE N 486 Pneumonia Unspecified 09/25/2011 OKEEFE CASHERO EARLY CHILDHOOD ASSISTANT, JLUIETTE N 786.2 Cough 09/25/2011 RUDOLPH EARLY CHILDHOOD ASSISTANT, FADIA T 48 6 Pneumonia Unspecified 09/25/2011 RUDOLPH EARLY CHILDHOOD ASSISTANT, FADIA T 78 6.2 Cough 09/25/2011 COTA DO, RYLAN K 486 Pneumonia Unspecified 09/25/2011 COTA DO, RYLAN K 786.2 Cough 09/25/2011 JOSEPH EARLY CHILDHOOD ASSISTANT, IRVIN S 486 Pneumonia Unspecified 09/25/2011 JOSEPH EARLY CHILDHOOD ASSISTANT, IRVIN S 786.2 Cough 09/25/2011 JOSEPH EARLY CHILDHOOD ASSISTANT, IRVIN S 486 Pneumonia Unspecified 09/25/2011 JOSEPH EARLY CHILDHOOD ASSISTANT, IRVIN S 786.2 Cough 09/25/2011 BRICE EARLY CHILDHOOD ASSISTANT, CANDY A 48 6 Pneumonia Unspecified 09/25/2011 BRICE EARLY CHILDHOOD ASSISTANT, CANDY A 78 6.2 Cough 09/25/2011 BRICE EARLY CHILDHOOD ASSISTANT, CANDY A 48 6 Pneumonia Unspecified 09/25/2011 BRICE EARLY CHILDHOOD ASSISTANT, CANDY A 78 6.2 Cough 09/25/2011 COTA DO, RYLAN K 486 Pneumonia Unspecified 09/25/2011 COTA DO, RYLAN K 786.2 Cough 09/25/2011 IVERSON EARLY CHILDHOOD ASSISTANT, HARRIET R 486 Pneumonia Unspecified 09/25/2011 IVERSON EARLY CHILDHOOD ASSISTANT, HARRIET R 786.2 Cough 09/25/2011 JOSEPH EARLY CHILDHOOD ASSISTANT, IRVIN S 486 Pneumonia Unspecified 09/25/2011 JOSEPH EARLY CHILDHOOD ASSISTANT, IRVIN S 786.2 Cough 01/17/2012 COTA DO, RYLAN K 919.4 INSECT BITE NONVENOMOUS OF OTHER MULTIPLE AND UNSPECIFIED SITES WITHOUT INFECTION 01/17/2012 COTA DO, RYLAN K 919.4 INSECT BITE NONVENOMOUS OF OTHER MULTIPLE AND UNSPECIFIED SITES WITHOUT INFECTION 01/17/[address] BITE NONVENOMOUS OF OTHER MULTIPLE AND UNSPECIFIED SITES WITHOUT INFECTION 01/17/[address] BITE NONVENOMOUS OF OTHER MULTIPLE AND UNSPECIFIED SITES WITHOUT INFECTION 01/17/[address] BITE NONVENOMOUS OF OTHER MULTIPLE AND UNSPECIFIED SITES WITHOUT INFECTION 01/17/[address] BITE NONVENOMOUS OF OTHER MULTIPLE AND UNSPECIFIED SITES WITHOUT INFECTION 01/17/[address] BITE NONVENOMOUS OF OTHER MULTIPLE AND UNSPECIFIED SITES WITHOUT INFECTION 01/17/[address] BITE NONVENOMOUS OF OTHER MULTIPLE AND UNSPECIFIED SITES WITHOUT INFECTION 01/17/2012 JOSEPH EARLY CHILDHOOD ASSISTANTALLYA S 919.4 INSECT BITE NONVENOMOUS OF OTHER MULTIPL E AND UNSPECIFIED SITES WITHOUT INFECTION 01/17/2012 RYAN BUTLER DDS 919.4 INSECT BITE NONVENOMOUS OF OTHER MULTIPL E AND UNSPECIFIED SITES WITHOUT INFECTION 01/17/2012 JULIETTE TAYLOR APRN 919.4 INSECT BITE NONVENOMOUS OF OTHER MULTIPL E AND UNSPECIFIED SITES WITHOUT INFECTION 01/17/2012 FADIA GALDAMEZ APRN 91 9.4 INSECT BITE NONVENOMOUS OF OTHER MULTIPLE AND UNSPECIFIED SITES WITHOUT INFECTION 01/17/2012 RYLAN COTA DO K 919.4 INSECT BITE NONVENOMOUS OF OTHER MULTIPLE AND UNSPECIFIED SITES WITHOUT INFECTION 01/17/2012 JOSEPH EARLY CHILDHOOD ASSISTANT, IRVIN S 919.4 INSECT BITE NONVENOMOUS OF OTHER MULTIPL E AND UNSPECIFIED SITES WITHOUT INFECTION 01/17/2012 JOSEPH EARLY CHILDHOOD ASSISTANT, IRVIN S 919.4 INSECT BITE NONVENOMOUS OF OTHER MULTIPL E AND UNSPECIFIED SITES WITHOUT INFECTION 01/17/2012 BRICE BRISEIDA, CANDY A 91 9.4 INSECT BITE NONVENOMOUS OF OTHER MULTIPLE AND UNSPECIFIED SITES WITHOUT INFECTION 01/17/2012 BRICE EARLY CHILDHOOD ASSISTANT CANDY A 91 9.4 INSECT BITE NONVENOMOUS OF OTHER MULTIPLE AND UNSPECIFIED SITES WITHOUT INFECTION 01/17/2012 COTA DO RYLAN K 919.4 INSECT BITE NONVENOMOUS OF OTHER MULTIPLE AND UNSPECIFIED SITES WITHOUT INFECTION 01/17/2012 HARRIET IVERSON APRN 919.4 INSECT BITE NONVENOMOUS OF OTHER MULTIPL E AND UNSPECIFIED SITES WITHOUT INFECTION 01/17/2012 MIKE RUIZ APRNNDA S 919.4 INSECT BITE NONVENOMOUS OF OTHER MULTIPL E AND UNSPECIFIED SITES WITHOUT INFECTION 02/18/2012 RYLAN COTA DO 354.0 CARPAL TUNNEL SYNDROME 02/18/2012 RYLAN COTA DO K 354.0 CARPAL TUNNEL SYNDROME 02/18/2012 354.0 CARP AL TUNNEL SYNDROME 02/18/2012 354.0 CARP AL TUNNEL SYNDROME 02/18/2012 354.0 CARP AL TUNNEL SYNDROME 02/18/2012 354.0 CARP AL TUNNEL SYNDROME 02/18/2012 354.0 CARP AL TUNNEL SYNDROME 02/18/2012 354.0 CARP AL TUNNEL SYNDROME 02/18/2012 IRVIN RUIZ APRN S 354.0 CARPAL TUNNEL SYNDROME 02/18/2012 CARRIE LIMAS, RYAN M 354.0 CARPAL TUNNEL SYNDROME 02/18/2012 JULIETTE TAYLOR APRN 354.0 CARPAL TUNNEL SYNDROME 02/18/2012 FADIA GALDAMEZ APRN 35 4.0 CARPAL TUNNEL SYNDROME 02/18/2012 RYLAN COTA DO K 354.0 CARPAL TUNNEL SYNDROME 02/18/2012 IRVIN RUIZ APRN S 354.0 CARPAL TUNNEL SYNDROME 02/18/2012 IRVIN RUIZ APRN S 354.0 CARPAL TUNNEL SYNDROME 02/18/2012 BRICEJUAN GOINS CANDY A 35 4.0 CARPAL TUNNEL SYNDROME 02/18/2012 BRICE GOINS CANDY A 35 4.0 CARPAL TUNNEL SYNDROME 02/18/2012 RYLAN COTA DO K 354.0 CARPAL TUNNEL SYNDROME 02/18/2012 HARRIET IVERSON APRN 354.0 CARPAL TUNNEL SYNDROME 02/18/2012 IRVIN RUIZ APRN S 354.0 CARPAL TUNNEL SYNDROME 03/16/2012 RYLAN COTA DO 723.9 CERVICAL NECK DISORDER NOS 03/16/2012 RYLAN COTA DO 723.9 CERVICAL NECK DISORDER NOS 03/16/2012 723.9 CERV ICAL NECK DISORDER NOS 03/16/2012 723.9 CERV ICAL NECK DISORDER NOS 03/16/2012 723.9 CERV ICAL NECK DISORDER NOS 03/16/2012 723.9 CERV ICAL NECK DISORDER NOS 03/16/2012 723.9 CERV ICAL NECK DISORDER NOS 03/16/2012 723.9 CERV ICAL NECK DISORDER NOS 03/16/2012 JOSEPH EARLY CHILDHOOD ASSISTANT, IRVIN S 723.9 CERVICAL NECK DISORDER NOS 03/16/2012 RYAN BUTLER DDS 723.9 CERVICAL NECK DISORDER NOS 03/16/2012 JULIETTE TAYLOR APRN N 723.9 CERVICAL NECK DISORDER NOS 03/16/2012 FADIA GALDAMEZ APRN 72 3.9 CERVICAL NECK DISORDER NOS 03/16/2012 COTA DO, RYLAN K 723.9 CERVICAL NECK DISORDER NOS 03/16/2012 JOSEPH EARLY CHILDHOOD ASSISTANT, IRVIN S 723.9 CERVICAL NECK DISORDER NOS 03/16/2012 JOSPEH EARLY CHILDHOOD ASSISTANT, IRVIN S 723.9 CERVICAL NECK DISORDER NOS 03/16/2012 BRICE EARLY CHILDHOOD ASSISTANT, CANDY A 72 3.9 CERVICAL NECK DISORDER NOS 03/16/2012 BRICE EARLY CHILDHOOD ASSISTANT, CANDY A 72 3.9 CERVICAL NECK DISORDER NOS 03/16/2012 COTA DO RYLAN K 723.9 CERVICAL NECK DISORDER NOS 03/16/2012 HARRIET IVERSON APRN R 723.9 CERVICAL NECK DISORDER NOS 03/16/2012 JOSEPH GOINS IRVIN S 723.9 CERVICAL NECK DISORDER NOS 03/25/2012 CIPRIANO BRIGHT RYLAN K 008.8 INTESTINAL INFECTION DUE TO OTHER ORGANISM NOT ELSEWHERE CLASSIFIED 03/25/2012 SAGAR COTA DOA K 008.8 INTESTINAL INFECTION DUE TO OTHER ORGANISM NOT ELSEWHERE CLASSIFIED 03/25/2012 008.8 INTE STINAL INFECTION DUE TO OTHER ORGANISM NOT ELSEWHERE CLASSIFIED 03/25/2012 008.8 INTE STINAL INFECTION DUE TO OTHER ORGANISM NOT ELSEWHERE CLASSIFIED 03/25/2012 008.8 INTE STINAL INFECTION DUE TO OTHER ORGANISM NOT ELSEWHERE CLASSIFIED 03/25/2012 008.8 INTE STINAL INFECTION DUE TO OTHER ORGANISM NOT ELSEWHERE CLASSIFIED 03/25/2012 008.8 INTE STINAL INFECTION DUE TO OTHER ORGANISM NOT ELSEWHERE CLASSIFIED 03/25/2012 008.8 INTE STINAL INFECTION DUE TO OTHER ORGANISM NOT ELSEWHERE CLASSIFIED 03/25/2012 IRVIN RUIZ APRN S 008.8 INTESTINAL INFECTION DUE TO OTHER ORGANISM NOT ELSEWHE RE CLASSIFIED 03/25/2012 RYAN BUTLER DDS 008.8 INTESTINAL INFECTION DUE TO OTHER ORGANISM NOT ELSEWHE RE CLASSIFIED 03/25/2012 JULIETTE TAYLOR APRN N 008.8 INTESTINAL INFECTION DUE TO OTHER ORGANI SM NOT ELSEWHERE CLASSIFIED 03/25/2012 FADIA GALDAMEZ APRN 00 8.8 INTESTINAL INFECTION DUE TO OTHER ORGANISM NOT ELSEWHERE CLASSIFIED 03/25/2012 SAGAR COTA DOA K 008.8 INTESTINAL INFECTION DUE TO OTHER ORGANISM NOT ELSEWHERE CLASSIFIED 03/25/2012 ALLY RUIZ APRNA S 008.8 INTESTINAL INFECTION DUE TO OTHER ORGANISM NOT ELSEWHE RE CLASSIFIED 03/25/2012 JOSEPH GOINS IRVIN S 008.8 INTESTINAL INFECTION DUE TO OTHER ORGANISM NOT ELSEWHE RE CLASSIFIED 03/25/2012 BRICE APRN, CANDY A 00 8.8 INTESTINAL INFECTION DUE TO OTHER ORGANISM NOT ELSEWHERE CLASSIFIED 03/25/2012 BRICE EARLY CHILDHOOD ASSISTANT, CANDY A 00 8.8 INTESTINAL INFECTION DUE TO OTHER ORGANISM NOT ELSEWHERE CLASSIFIED 03/25/2012 RYLAN COTA DO K 008.8 INTESTINAL INFECTION DUE TO OTHER ORGANISM NOT ELSEWHERE CLASSIFIED 03/25/2012 HARRIET IVERSON APRN 008.8 INTESTINAL INFECTION DUE TO OTHER ORGANI SM NOT ELSEWHERE CLASSIFIED 03/25/2012 MIKE RUIZ APRNNDA S 008.8 INTESTINAL INFECTION DUE TO OTHER ORGANISM NOT ELSEWHE RE CLASSIFIED 03/26/2012 RYLAN COTA DO K 842.00 SPRAIN OF UNSPECIFIED SITE OF WRIST 03/26/2012 RYLAN COTA DO K 842.00 SPRAIN OF UNSPECIFIED SITE OF WRIST 03/26/2012 842.00 SPR AIN OF UNSPECIFIED SITE OF WRIST 03/26/2012 842.00 SPR AIN OF UNSPECIFIED SITE OF WRIST 03/26/2012 842.00 SPR AIN OF UNSPECIFIED SITE OF WRIST 03/26/2012 842.00 SPR AIN OF UNSPECIFIED SITE OF WRIST 03/26/2012 842.00 SPR AIN OF UNSPECIFIED SITE OF WRIST 03/26/2012 842.00 SPR AIN OF UNSPECIFIED SITE OF WRIST 03/26/2012 ALLY RUIZ APRNA S 842.00 SPRAIN OF UNSPECIFIED SITE OF WRIST 03/26/2012 RYAN BUTLER DDS 842.00 SPRAIN OF UNSPECIFIED SITE OF WRIST 03/26/2012 JULIETTE TAYLOR APRN 842.00 SPRAIN OF UNSPECIFIED SITE OF WRIST 03/26/2012 FADIA GALDAMEZ APRN 842.00 SPRAIN OF UNSPECIFIED SITE OF WRIST 03/26/2012 RYLAN COTA DO K 842.00 SPRAIN OF UNSPECIFIED SITE OF WRIST 03/26/2012 ALLY RUIZ APRNA S 842.00 SPRAIN OF UNSPECIFIED SITE OF WRIST 03/26/2012 MIKE RUIZ APRNNDA S 842.00 SPRAIN OF UNSPECIFIED SITE OF WRIST 03/26/2012 BRICE EARLY CHILDHOOD ASSISTANT, CANDY A 842.00 SPRAIN OF UNSPECIFIED SITE OF WRIST 03/26/2012 BRICE APRN, CANDY A 842.00 SPRAIN OF UNSPECIFIED SITE OF WRIST 03/26/2012 RYLAN COTA DO 842.00 SPRAIN OF UNSPECIFIED SITE OF WRIST 03/26/2012 HARRIET IVERSON APRN R 842.00 SPRAIN OF UNSPECIFIED SITE OF WRIST 03/26/2012 IRVIN RUIZ APRN S 842.00 SPRAIN OF UNSPECIFIED SITE OF WRIST 06/03/2012 RYLAN COTA DO 627.8 PERIMENOPAUSE 06/03/2012 RYLAN COTA DO 627.8 PERIMENOPAUSE 06/03/2012 627.8 KATHLEEN MENOPAUSE 06/03/2012 627.8 KATHLEEN MENOPAUSE 06/03/2012 627.8 KATHLEEN MENOPAUSE 06/03/2012 627.8 KATHLEEN MENOPAUSE 06/03/2012 627.8 KATHLEEN MENOPAUSE 06/03/2012 627.8 KATHLEEN MENOPAUSE 06/03/2012 IRVIN RUIZ APRN S 627.8 PERIMENOPAUSE 06/03/2012 CARRIE SOLO, RYAN M 627.8 PERIMENOPAUSE 06/03/2012 JULIETTE TAYLOR APRN 627.8 PERIMENOPAUSE 06/03/2012 FADIA GALDAMEZ APRN 62 7.8 PERIMENOPAUSE 06/03/2012 RYLAN COTA DO 627.8 PERIMENOPAUSE 06/03/2012 IRVIN RUIZ APRN S 627.8 PERIMENOPAUSE 06/03/2012 IRVIN RUIZ APRN S 627.8 PERIMENOPAUSE 06/03/2012 CANDY NARVAEZ APRN A 62 7.8 PERIMENOPAUSE 06/03/2012 BRICEJUAN GOINS, CANDY A 62 7.8 PERIMENOPAUSE 06/03/2012 RYLAN COTA DO 627.8 PERIMENOPAUSE 06/03/2012 HARRIET IEVRSON APRN R 627.8 PERIMENOPAUSE 06/03/2012 MIKE RUIZ APRNNDA S 627.8 PERIMENOPAUSE 09/23/2012 COTA DO, RYLAN K 719.47 FOOT PAIN 09/23/2012 719.47 AMY T PAIN 09/23/2012 719.47 AMY T PAIN 09/23/2012 719.47 AMY T PAIN 09/23/2012 719.47 AMY T PAIN 09/23/2012 719.47 AMY T PAIN 09/23/2012 719.47 AMY T PAIN 09/23/2012 MIKE RUIZ APRNNDA S 719.47 FOOT PAIN 09/23/2012 RYAN BUTLER DDS 719.47 FOOT PAIN 09/23/2012 JULIETTE TAYLOR APRN N 719.47 FOOT PAIN 09/23/2012 FADIA GALDAMEZ APRN 719.47 FOOT PAIN 09/23/2012 COTA SAGAR BRIGHTA K 719.47 FOOT PAIN 09/23/2012 ALLY RUIZ APRNA S 719.47 FOOT PAIN 09/23/2012 MIKE RUIZ APRNNDA S 719.47 FOOT PAIN 09/23/2012 BRICEJUAN GOINS CANDY A 719.47 FOOT PAIN 09/23/2012 BRICE GOINS CANDY A 719.47 FOOT PAIN 09/23/2012 COTA DO, RYLAN K 719.47 FOOT PAIN 09/23/2012 HARRIET IVERSON APRN R 719.47 FOOT PAIN 09/23/2012 MIKE RUIZ APRNNDA S 719.47 FOOT PAIN 11/19/2012 682.7 CELL ULITIS - FOOT 11/19/2012 682.7 CELL ULITIS - FOOT 11/19/2012 682.7 CELL ULITIS - FOOT 11/19/2012 682.7 CELL ULITIS - FOOT 11/19/2012 682.7 CELL ULITIS - FOOT 11/19/2012 682.7 CELL ULITIS - FOOT 11/19/2012 ALLY RUIZ APRNA S 682.7 CELLULITIS - FOOT 11/19/2012 RYAN BUTLER DDS 682.7 CELLULITIS - FOOT 11/19/2012 JULIETTE TAYLOR APRN N 682.7 CELLULITIS - FOOT 11/19/2012 FADIA GALDAMEZ APRN 68 2.7 CELLULITIS - FOOT 11/19/2012 RYLAN COTA DO K 682.7 CELLULITIS - FOOT 11/19/2012 MIKE RUIZ APRNNDA S 682.7 CELLULITIS - FOOT 11/19/2012 MIKE RUIZ APRNNDA S 682.7 CELLULITIS - FOOT 11/19/2012 BRICE SCRUGGSN, CANDY A 68 2.7 CELLULITIS - FOOT 11/19/2012 BRICE EARLY CHILDHOOD ASSISTANT, CANDY A 68 2.7 CELLULITIS - FOOT 11/19/2012 RYLAN COTA DO K 682.7 CELLULITIS - FOOT 11/19/2012 HARRIET IVERSON APRN 682.7 CELLULITIS - FOOT 11/19/2012 MIKE RUIZ APRNNDA S 682.7 CELLULITIS - FOOT 02/25/2013 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 02/25/2013 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 02/25/2013 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 02/25/2013 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 02/25/2013 IRVIN RUIZ APRN S 727.04 RADIAL STYLOID TENOSYNOVITIS 02/25/2013 RYAN BUTLER DDS 727.04 RADIAL STYLOID TENOSYNOVITIS 02/25/2013 JULIETTE TAYLOR APRN N 727.04 RADIAL STYLOID TENOSYNOVITIS 02/25/2013 FADIA GALDAMEZ APRN 727.04 RADIAL STYLOID TENOSYNOVITIS 02/25/2013 RYLAN COTA DO K 727.04 RADIAL STYLOID TENOSYNOVITIS 02/25/2013 ALLY RUIZ APRNA S 727.04 RADIAL STYLOID TENOSYNOVITIS 02/25/2013 ALLY RUIZ APRNA S 727.04 RADIAL STYLOID TENOSYNOVITIS 02/25/2013 BRICE GOINS, CANDY A 727.04 RADIAL STYLOID TENOSYNOVITIS 02/25/2013 BRICE GOINS CANDY A 727.04 RADIAL STYLOID TENOSYNOVITIS 02/25/2013 RYLAN COTA DO 727.04 RADIAL STYLOID TENOSYNOVITIS 02/25/2013 HARRIET IVERSON APRN 727.04 RADIAL STYLOID TENOSYNOVITIS 02/25/2013 IRVIN RUIZ APRN S 727.04 RADIAL STYLOID TENOSYNOVITIS 03/12/2013 V73.81 HPV SCREENING 03/12/2013 V76.10 MIKE AST CANCER SCREENING 03/12/2013 V76.2 CERV ICAL CANCER SCREENING (PAP SMEAR) 03/12/2013 V73.81 HPV SCREENING 03/12/2013 V76.10 MIKE AST CANCER SCREENING 03/12/2013 V76.2 CERV ICAL CANCER SCREENING (PAP SMEAR) 03/12/2013 V73.81 HPV SCREENING 03/12/2013 V76.10 MIKE AST CANCER SCREENING 03/12/2013 V76.2 CERV ICAL CANCER SCREENING (PAP SMEAR) 03/12/2013 IRVIN RUIZ APRN S V73.81 HPV SCREENING 03/12/2013 IRVIN RUIZ APRN S V76.10 BREAST CANCER SCREENING 03/12/2013 IRVIN RUIZ APRN S V76.2 CERVICAL CANCER SCREENING (PAP SMEAR) 03/12/2013 RYAN BUTLER DDS V73.81 HPV SCREENING 03/12/2013 RYAN BUTLER DDS V76.10 BREAST CANCER SCREENING 03/12/2013 RYAN BUTLER DDS V76.2 CERVICAL CANCER SCREENING (PAP SMEAR) 03/12/2013 JULIETTE TAYLOR APRN V73.81 HPV SCREENING 03/12/2013 JULIETTE TAYLOR APRN V76.10 BREAST CANCER SCREENING 03/12/2013 JULIETTE TAYLOR APRN N V76.2 CERVICAL CANCER SCREENING (PAP SMEAR) 03/12/2013 FADIA GALDAMEZ APRN V73.81 HPV SCREENING 03/12/2013 FADIA GALDAMEZ APRN V76.10 BREAST CANCER SCREENING 03/12/2013 FADIA GALDAMEZ APRN V7 6.2 CERVICAL CANCER SCREENING (PAP SMEAR) 03/12/2013 RYLAN COTA DO V73.81 HPV SCREENING 03/12/2013 RYLAN COTA DO V76.10 BREAST CANCER SCREENING 03/12/2013 RYLAN COTA DO V76.2 CERVICAL CANCER SCREENING (PAP SMEAR) 03/12/2013 JOSEPH EARLY CHILDHOOD ASSISTANT, IRVIN S V73.81 HPV SCREENING 03/12/2013 JOSEPH EARLY CHILDHOOD ASSISTANT, IRVIN S V76.10 BREAST CANCER SCREENING 03/12/2013 JOSEPH EARLY CHILDHOOD ASSISTANT, IRVIN S V76.2 CERVICAL CANCER SCREENING (PAP SMEAR) 03/12/2013 JOSEPH EARLY CHILDHOOD ASSISTANT, IRVIN S V73.81 HPV SCREENING 03/12/2013 JOSEPH EARLY CHILDHOOD ASSISTANT, IRVIN S V76.10 BREAST CANCER SCREENING 03/12/2013 JOSEPH EARLY CHILDHOOD ASSISTANT, IRVIN S V76.2 CERVICAL CANCER SCREENING (PAP SMEAR) 03/12/2013 BRICE EARLY CHILDHOOD ASSISTANT, CANDY A V73.81 HPV SCREENING 03/12/2013 BRICE EARLY CHILDHOOD ASSISTANT, CANDY A V76.10 BREAST CANCER SCREENING 03/12/2013 BRICE EARLY CHILDHOOD ASSISTANT, CANDY A V7 6.2 CERVICAL CANCER SCREENING (PAP SMEAR) 03/12/2013 BRICE EARLY CHILDHOOD ASSISTANT, CANDY A V73.81 HPV SCREENING 03/12/2013 BRICE EARLY CHILDHOOD ASSISTANT, CANDY A V76.10 BREAST CANCER SCREENING 03/12/2013 BRICE EARLY CHILDHOOD ASSISTANT, CANDY A V7 6.2 CERVICAL CANCER SCREENING (PAP SMEAR) 03/12/2013 COTA DO RYLAN K V73.81 HPV SCREENING 03/12/2013 CIPRIANO BRIGHT RYLAN K V76.10 BREAST CANCER SCREENING 03/12/2013 CIPRIANO BRIGHT RYLAN K V76.2 CERVICAL CANCER SCREENING (PAP SMEAR) 03/12/2013 JONO IVERSON APRNRICIA R V73.81 HPV SCREENING 03/12/2013 KISHOR GOINS HARRIET R V76.10 BREAST CANCER SCREENING 03/12/2013 KISHOR GOINS HARRIET R V76.2 CERVICAL CANCER SCREENING (PAP SMEAR) 03/12/2013 JOSEPH EARLY CHILDHOOD ASSISTANT, IRVIN S V73.81 HPV SCREENING 03/12/2013 JOSEPH GOINS IRVIN S V76.10 BREAST CANCER SCREENING 03/12/2013 JOSEPH EARLY CHILDHOOD ASSISTANT, IRVIN S V76.2 CERVICAL CANCER SCREENING (PAP SMEAR) 04/08/2013 427.9 CARD IAC DYSRHYTHMIA UNSPECIFIED 04/08/2013 427.9 CARD IAC DYSRHYTHMIA UNSPECIFIED 04/08/2013 JOSEPH EARLY CHILDHOOD ASSISTANT, IRVIN S 427.9 CARDIAC DYSRHYTHMIA UNSPECIFIED 04/08/2013 RYAN BUTLER DDS 427.9 CARDIAC DYSRHYTHMIA UNSPECIFIED 04/08/2013 MALDONADO WEBB APRJULIETTE Miguel N 427.9 CARDIAC DYSRHYTHMIA UNSPECIFIED 04/08/2013 FADIA GALDAMEZ APRN T 42 7.9 CARDIAC DYSRHYTHMIA UNSPECIFIED 04/08/2013 COTA DO, RYLAN K 427.9 CARDIAC DYSRHYTHMIA UNSPECIFIED 04/08/2013 JOSEPH EARLY CHILDHOOD ASSISTANT, IRVIN S 427.9 CARDIAC DYSRHYTHMIA UNSPECIFIED 04/08/2013 JOSEPH EARLY CHILDHOOD ASSISTANT, IRVIN S 427.9 CARDIAC DYSRHYTHMIA UNSPECIFIED 04/08/2013 BRICE EARLY CHILDHOOD ASSISTANT, CANDY A 42 7.9 CARDIAC DYSRHYTHMIA UNSPECIFIED 04/08/2013 BRICE EARLY CHILDHOOD ASSISTANT, CANDY A 42 7.9 CARDIAC DYSRHYTHMIA UNSPECIFIED 04/08/2013 COTA DO, RYLAN K 427.9 CARDIAC DYSRHYTHMIA UNSPECIFIED 04/08/2013 HARRIET IVERSON APRN 427.9 CARDIAC DYSRHYTHMIA UNSPECIFIED 04/08/2013 JOSEPH EARLY CHILDHOOD ASSISTANT, IRVIN S 427.9 CARDIAC DYSRHYTHMIA UNSPECIFIED 09/13/2013 MALDONADO WEBB APRJULIETTE Miguel N 079.99 UNSPECIFIED VIRAL INFECTION 09/13/2013 MALDONADO WEBB APRJULIETTE Miguel N 786.2 COUGH 09/13/2013 MALDONADO WEBB APRJULIETTE Miguel N 789.00 ABDOMINAL PAIN UNSPECIFIED SITE 09/13/2013 FADIA GALDAMEZ APRN 079.99 UNSPECIFIED VIRAL INFECTION 09/13/2013 FADIA GALDAMEZ APRN 78 6.2 COUGH 09/13/2013 FADIA GALDAMEZ APRN 789.00 ABDOMINAL PAIN UNSPECIFIED SITE 09/13/2013 COTA DO, RYLAN K 079.99 UNSPECIFIED VIRAL INFECTION 09/13/2013 COTA DO, RYLAN K 786.2 COUGH 09/13/2013 COTA DO, RYLAN K 789.00 ABDOMINAL PAIN UNSPECIFIED SITE 09/13/2013 JOSEPH GOINS, IRVIN S 079.99 UNSPECIFIED VIRAL INFECTION 09/13/2013 JOSEPH GOINS IRVIN S 786.2 COUGH 09/13/2013 JOSEPH EARLY CHILDHOOD ASSISTANT, IRVIN S 789.00 ABDOMINAL PAIN UNSPECIFIED SITE 09/13/2013 JOSEPH EARLY CHILDHOOD ASSISTANT, IRVIN S 079.99 UNSPECIFIED VIRAL INFECTION 09/13/2013 JOSEPH EARLY CHILDHOOD ASSISTANT, IRVIN S 786.2 COUGH 09/13/2013 JOSEPH EARLY CHILDHOOD ASSISTANT, IRVIN S 789.00 ABDOMINAL PAIN UNSPECIFIED SITE 09/13/2013 BRICE EARLY CHILDHOOD ASSISTANT, CANDY A 079.99 UNSPECIFIED VIRAL INFECTION 09/13/2013 BRICE EARLY CHILDHOOD ASSISTANT, CANDY A 78 6.2 COUGH 09/13/2013 BRICE EARLY CHILDHOOD ASSISTANT, CANDY A 789.00 ABDOMINAL PAIN UNSPECIFIED SITE 09/13/2013 BRICE EARLY CHILDHOOD ASSISTANT, CANDY A 079.99 UNSPECIFIED VIRAL INFECTION 09/13/2013 BRICE EARLY CHILDHOOD ASSISTANT, CANDY A 78 6.2 COUGH 09/13/2013 BRICE EARLY CHILDHOOD ASSISTANT, CANDY A 789.00 ABDOMINAL PAIN UNSPECIFIED SITE 09/13/2013 COTA DO RYLAN K 079.99 UNSPECIFIED VIRAL INFECTION 09/13/2013 COTA DO, RYLAN K 786.2 COUGH 09/13/2013 COTA DO, RYLAN K 789.00 ABDOMINAL PAIN UNSPECIFIED SITE 09/13/2013 JONO IVERSON APRNRICIA R 079.99 UNSPECIFIED VIRAL INFECTION 09/13/2013 JONO IVERSON APRNRICIA R 786.2 COUGH 09/13/2013 KISHOR GOINS HARRIET R 789.00 ABDOMINAL PAIN UNSPECIFIED SITE 09/13/2013 JOSEPH GOINS, IRVIN S 079.99 UNSPECIFIED VIRAL INFECTION 09/13/2013 JOSEPH EARLY CHILDHOOD ASSISTANT, IRVIN S 786.2 COUGH 09/13/2013 JOSEPH EARLY CHILDHOOD ASSISTANT, IRVIN S 789.00 ABDOMINAL PAIN UNSPECIFIED SITE 09/17/2013 FADIA GALDAMEZ APRN 46 5.9 UPPER RESPIRATORY INFECTION 09/17/2013 COTA DOSAGARA K 465.9 UPPER RESPIRATORY INFECTION 09/17/2013 JOSEPH EARLY CHILDHOOD ASSISTANT, IRVIN S 465.9 UPPER RESPIRATORY INFECTION 09/17/2013 JOSEPH EARLY CHILDHOOD ASSISTANT, IVRIN S 465.9 UPPER RESPIRATORY INFECTION 09/17/2013 BRICE EARLY CHILDHOOD ASSISTANT CANDY A 46 5.9 UPPER RESPIRATORY INFECTION 09/17/2013 BRICE EARLY CHILDHOOD ASSISTANT, CANDY A 46 5.9 UPPER RESPIRATORY INFECTION 09/17/2013 RYLAN COTA DO K 465.9 UPPER RESPIRATORY INFECTION 09/17/2013 HARRIET IVERSON APRN R 465.9 UPPER RESPIRATORY INFECTION 09/17/2013 IRVIN RUIZ APRN S 465.9 UPPER RESPIRATORY INFECTION 10/14/2013 RYLAN COTA DO K 719.44 PAIN IN JOINT INVOLVING HAND 10/14/2013 IRVIN RUIZ APRN S 719.44 PAIN IN JOINT INVOLVING HAND 10/14/2013 ALLY RUIZ APRNA S 719.44 PAIN IN JOINT INVOLVING HAND 10/14/2013 CANDY NARVAEZ APRN A 719.44 PAIN IN JOINT INVOLVING HAND 10/14/2013 CANDY NARVAEZ APRN A 719.44 PAIN IN JOINT INVOLVING HAND 10/14/2013 RYLAN COTA DO K 719.44 PAIN IN JOINT INVOLVING HAND 10/14/2013 HARRIET IVERSON APRN R 719.44 PAIN IN JOINT INVOLVING HAND 10/14/2013 IRVIN RUIZ APRN S 719.44 PAIN IN JOINT INVOLVING HAND 11/04/2013 ASH HINSON, PATRICIA Hutton Ot 786.50 CHEST PAIN NOS 11/08/2013 ALLY RUZI APRNA S 733.6 COSTOCHONDRITIS 11/08/2013 ALLY RUIZ APRNA S 733.6 COSTOCHONDRITIS 11/08/2013 KATIE NARVAEZ APRNIDI A 73 3.6 COSTOCHONDRITIS 11/08/2013 KATIE NARVAEZ APRNIDI A 73 3.6 COSTOCHONDRITIS 11/08/2013 RYLAN COTA DO K 733.6 COSTOCHONDRITIS 11/08/2013 HARRIET IVERSON APRN R 733.6 COSTOCHONDRITIS 11/08/2013 IRVIN RUIZ APRN S 733.6 COSTOCHONDRITIS 01/17/2014 BRICE GOINS, CANDY A 62 6.4 IRREGULAR MENSTRUAL CYCLE 01/17/2014 BRICE GOINS, CANDY A 78 8.1 DYSURIA 01/17/2014 BRICE GOINS CANDY A 62 6.4 IRREGULAR MENSTRUAL CYCLE 01/17/2014 BRICE GOINS CANDY A 78 8.1 DYSURIA 01/17/2014 RYLAN COTA DO K 626.4 IRREGULAR MENSTRUAL CYCLE 01/17/2014 COTA SAGAR BRIGHTA K 788.1 DYSURIA 01/17/2014 JONO IVERSON APRNRICIA R 626.4 IRREGULAR MENSTRUAL CYCLE 01/17/2014 JONO IVERSON APRNRICIA R 788.1 DYSURIA 01/17/2014 ALLY RUIZ APRNA S 626.4 IRREGULAR MENSTRUAL CYCLE 01/17/2014 MIKE RUIZ APRNNDA S 788.1 DYSURIA 03/16/2014 CANDY NARVAEZ APRN A 62 3.5 LEUKORRHEA NOT SPECIFIED INFECTIVE 03/16/2014 BRICECANDY Miguel APRN A V72.31 BUNG DROPPER EXAM, ROUTINE 03/16/2014 CANDY NARVAEZ APRN A V76.10 BREAST CANCER SCREENING 03/16/2014 RYLAN COTA DO K 623.5 LEUKORRHEA NOT SPECIFIED INFECTIVE 03/16/2014 RYLAN COTA DO K V72.31 BUNG DROPPER EXAM, ROUTINE 03/16/2014 RYLAN COTA DO K V76.10 BREAST CANCER SCREENING 03/16/2014 MARNIE IVERSON APRNIA R 623.5 LEUKORRHEA NOT SPECIFIED INFECTIVE 03/16/2014 JONO IVERSON APRNRICIA R V72.31 BUNG DROPPER EXAM, ROUTINE 03/16/2014 MARNIE IVERSON APRNIA R V76.10 BREAST CANCER SCREENING 03/16/2014 IRVIN RUIZ APRN S 623.5 LEUKORRHEA NOT SPECIFIED INFECTIVE 03/16/2014 ALLY RUIZ APRNA S V72.31 BUNG DROPPER EXAM, ROUTINE 03/16/2014 MIKE RUIZ APRNNDA S V76.10 BREAST CANCER SCREENING 04/07/2014 RYLAN COTA DO K 719.41 PAIN- SHOULDER 04/07/2014 RYLAN COTA DO K 726.10 DISORDERS OF BURSAE AND TENDONS IN SHOULDER REGION UNSPECIFIED 04/07/2014 MARNIE IVERSON APRNIA R 719.41 PAIN- SHOULDER 04/07/2014 MARNIE IVERSON APRNIA R 726.10 DISORDERS OF BURSAE AND TENDONS IN SHOULDER REGION UNS PECIFIED 04/07/2014 IRVIN RUIZ APRN S 719.41 PAIN- SHOULDER 04/07/2014 ALLY RUIZ APRNA S 726.10 DISORDERS OF BURSAE AND TENDONS IN SHOULDER REGION UNS PECIFIED 06/30/2014 HARRIET IVERSON APRN R 462 ACUTE PHARYNGITIS 06/30/2014 IRVIN RUIZ APRN S 462 ACUTE PHARYNGITIS 07/04/2014 IRVIN RUIZ APRN S 008.8 GASTROENTERITIS, VIRAL 02/16/2015 Ot V54.89 02/16/2015 Ot V76.12 02/16/2015 CANDY NARVAEZ EARLY CHILDHOOD ASSISTANT Ot V76.12 02/16/2015 CANDY NARVAEZ EARLY CHILDHOOD ASSISTANT Ot V76.12 02/16/2015 CHANDLER PARRA EARLY CHILDHOOD ASSISTANT Ot 724 .2 LUMBAGO 02/16/2015 CHANDLER PARRA EARLY CHILDHOOD ASSISTANT Ot 787.01 NAUSEA WITH VOMITING 02/17/2015 Ot V54.89 02/17/2015 Ot V76.12 02/17/2015 CANDY NARVAEZ EARLY CHILDHOOD ASSISTANT Ot V76.12 02/17/2015 CANDY ANRVAEZ EARLY CHILDHOOD ASSISTANT Ot V76.12 05/28/2016 CANDY NARVAEZ EARLY CHILDHOOD ASSISTANT Ot V76.12 OTH SCREEN MAMMO-MALIGN NEOPLASM OF FABIENNE 05/29/2016 CANDY NARVAEZ EARLY CHILDHOOD ASSISTANT Ot V76.12 OTH SCREEN MAMMO-MALIGN NEOPLASM OF FABIENNE 07/23/2016 Ot V76.12 OTH SCREEN MAMMO- MALIGN NEOPLASM OF FABIENNE 07/23/2016 CANDY NARVAEZ EARLY CHILDHOOD ASSISTANT Ot V76.12 OTH SCREEN MAMMO-MALIGN NEOPLASM OF FABIENNE 07/23/2016 CANDY NARVAEZ EARLY CHILDHOOD ASSISTANT Ot V76.12 OTH SCREEN MAMMO-MALIGN NEOPLASM OF FABIENNE 07/23/2016 Ot V76.12 OTH SCREEN MAMMO- MALIGN NEOPLASM OF FABIENNE 07/23/2016 CANDY NARVAEZ EARLY CHILDHOOD ASSISTANT Ot V76.12 OTH SCREEN MAMMO-MALIGN NEOPLASM OF FABIENNE 07/23/2016 CANDY NARVAEZ EARLY CHILDHOOD ASSISTANT Ot V76.12 OTH SCREEN MAMMO-MALIGN NEOPLASM OF FABIENNE 07/23/2016 Ot V76.12 OTH SCREEN MAMMO- MALIGN NEOPLASM OF FABIENNE 07/23/2016 CANDY NARVAEZ EARLY CHILDHOOD ASSISTANT Ot V76.12 OTH SCREEN MAMMO-MALIGN NEOPLASM OF FABIENNE 07/23/2016 CANDY NARVAEZ EARLY CHILDHOOD ASSISTANT Ot V76.12 OTH SCREEN MAMMO-MALIGN NEOPLASM OF FABIENNE 07/24/2016 MIKE RUIZTANA CARMONA Ot R31.9 HEMATURIA, UNSPECIFIED 08/19/2016 IRVIN RUIZ KRISTINE Ot R31.9 HEMATURIA, UNSPECIFIED 08/20/2016 JOSEPH, IRVIN CARMONA Ot R31.9 HEMATURIA, UNSPECIFIED 10/12/2019 IRVIN RUIZ LOFT WORKER APPRENTICE Ot R31.9 HEMATURIA, UNSPECIFIED Procedures Code Description [place] [address] INJ TENDON SHEATH/LIGAMENT 02/25/2013 89745 ROUT INE VENIPUNCTURE 04/09/2013 63765 A1C (IN-HOUSE) 04/09/2013 04317 MICR O ALBUMIN-IN HOUSE 04/09/2013 85162 LIPI D PANEL 04/09/2013 86331 UA L YOLI DIP 04/14/2013 52028 UA W / CULTURE IF INDICATED 07/26/2013 30856 A1C (IN-HOUSE) 07/26/2013 36224 INFL UENZA A & B (IN-HOUSE) 09/13/2013 95755 UA W / CULTURE IF INDICATED 09/17/2013 33022 INJ TENDON SHEATH/LIGAMENT 10/14/2013 59943 ROUT INE VENIPUNCTURE 11/10/2013 81301 A1C (IN-HOUSE) 11/10/2013 55702 CMP 11/10/2013 43697 LIPI D PANEL 11/10/2013 [id number] GF R CALC (RESULT ONLY) 11/10/2013 62930 PREG JULIETTE TEST, URINE (IN- HOUSE) 01/17/2014 33202 UA W / CULTURE IF INDICATED 01/17/2014 65844 MAMM OGRAM, SCREENING 03/16/2014 26126 CULT URE UROGENITAL 03/16/2014 68719 XRAY SHOULDER LEFT COMP 2 VIEWS 04/07/2014 30877 JOIN T INJECTION- INTERMEDIATE JOINT 04/07/2014 63220 STRE P A (IN-HOUSE) 06/30/2014 16514 MICR O ALBUMIN-IN HOUSE 07/21/2014 70269 A1C (IN-HOUSE) 07/21/2014 Results Test Result Range [facility] - 04/07/18 09:09 GLUCOSE 164 mg/dL 65-99 UREA NITROGEN (BUN) 12 mg/dL 7-25 CREATININE 0.55 mg/dL 0.50-1.10 eGFR NON-AFR. ANGUILLAN 112 mL/min/1.73m2 > OR = 60 eGFR 129 mL/min/1.73m2 > OR = 60 BUN/CREATININE RATIO NOT APPLICABLE (calc) 6-22 SODIUM 136 mmol/L 135-146 POTASSIUM 4.4 mmol/L 3.5-5.3 CHLORIDE 101 mmol/L 98-110 CARBON DIOXIDE 28 mmol/L 20-32 CALCIUM 9.3 mg/dL 8.6-10.2 PROTEIN, TOTAL 7.6 g/dL 6.1-8.1 ALBUMIN 4.2 g/dL 3.6-5.1 GLOBULIN 3.4 g/dL (calc) 1.9-3.7 ALBUMIN/GLOBULIN RATIO 1.2 (calc) 1.0-2. 5 BILIRUBIN, TOTAL 0.6 mg/dL 0.2-1.2 ALKALINE PHOSPHATASE 78 U/L 33-115 AST 19 U/L 10-35 ALT 18 U/L 6-29 SUREPATH PAP AND HPV mRNA E6/E7 - 09:28 CLINICAL INFORMATION: NRG LMP: 08/25/19 NRG PREV. PAP: NRG PREV. BX: NRG SOURCE: Cervix NRG STATEMENT OF ADEQUACY: NRG INTERPRETATION/RESULT: NRG OVEN DUMPER: NRG HPV mRNA E6/E7, SUREPATH VIAL Not Detected NOT DETECTED COMMENT NRG Encounters ACCT No. Visit Date/Time Discharge Status Pt. Type Provider Facility Loc./Unit Complaint [id number] 07/21/2014 12:21:00 07/21/2014 23:59: 59 CLS Outpatient IRVIN RUIZ APRN [id number] 06/30/2014 12:37:00 06/30/2014 23:59: 59 CLS Outpatient HARRIET IVERSON APRN [id number] 04/07/2014 13:29:00 04/07/2014 23:59: 59 CLS Outpatient RYLAN COTA DO [id number] 03/16/2014 10:58:00 03/16/2014 23:59: 59 CLS Outpatient CANDY NARVAEZ APRN [id number] 01/17/2014 14:46:00 01/17/2014 23:59: 59 CLS Outpatient CANDY NARVAEZ APRN [id number] 11/22/2013 10:15:00 11/22/2013 23:59: 59 CLS Outpatient JOSEPH MIKE GOINSTANA Arguelles [id number] 11/10/2013 10:35:00 11/10/2013 23:59: 59 CLS Outpatient JOSEPH ALLY GOINSAlisa Arguelles [id number] 10/14/2013 15:06:00 10/14/2013 23:59: 59 CLS Outpatient RYLAN COTA DO [id number] 09/17/2013 15:32:00 09/17/2013 23:59: 59 CLS Outpatient FADIA GALDAMEZ APRN [id number] 09/13/2013 15:28:00 09/13/2013 23:59: 59 CLS Outpatient JULIETTE TAYLOR APRN [id number] 08/18/2013 12:34:00 08/18/2013 23:59: 59 CLS Outpatient RYAN BUTLER DDS [id number] 07/26/2013 16:25:00 07/26/2013 23:59: 59 CLS Outpatient JOSEPH EARLY CHILDHOOD ASSISTANTALLYAlisa Arguelles [id number] 09/23/2012 09:00:00 09/23/2012 23:59: 59 CLS Outpatient RYLAN COTA DO [id number] 06/03/2012 10:09:00 06/03/2012 23:59: 59 CLS Outpatient RYLAN COTA DO [id number] 04/14/2013 13:09:00 Document Registration [id number] 04/09/2013 08:28:00 Document Registration [id number] 03/22/2013 11:46:00 Document Registration [id number] 02/25/2013 14:41:00 Document Registration [id number] 11/24/2012 11:23:00 Document Registration [id number] 11/19/2012 17:18:00 Document Registration [id number] 10/28/2019 12:14:00 020 23:59:59 CLS Outpatient IRVIN RUIZ [facility] RAD BREAST PAIN [id number] 07/23/2016 12:58:00 016 23:59:59 CLS Outpatient IRVIN RUIZ [facility] RAD HEMATURIA [id number] 02/16/2015 20:47:00 015 22:39:00 DIS Emergency CHANDLER PARRA APRN [facility] ER BACK PAIN,NAUSEA,VOMITI NG [id number] 03/24/2014 10:52:00 014 23:59:59 CLS Outpatient CANDY NARVAEZ APRN [facility] RAD SCREENING [id number] 11/04/2013 09:02:00 014 10:54:00 DIS Emergency PATRICIA ALEMAN MD [facility] ER CHEST PAIN [id number] 03/18/2013 11:05:00 23:59:59 CLS Outpatient CANDY NARVAEZ APRN [facility] RAD SCREENING [id number] 02/24/2013 08:31:00 23:59:59 CLS Outpatient [id number] 11/01/2019 20:18:[address] Emergency VU EGAN DO [facility] ER R KNEE PAIN [id number] 03/19/2011 07:50:00 Document Registration [id number] 07/18/2010 08:35:00 Document Registration [id number] 10/07/2019 10:45:00 10/07/2019 23:59:5 9 CLS Outpatient [facility] [id number] 09/17/2019 08:40:00 Document Registration [id number] 04/07/2018 08:20:00 Document Registration
--- OUTSIDE RECORDS SUMMARY | 2019-11-01 20:33 | XMS REPORT ---
Author Author Naysia RUIZ [facility] Address [address] [place] [address] Care Team Providers Care Commercial Management Accountant Name Role Phone IRVIN RUIZ Unavailable PROBLEMS Type Condition ICD9-CM Code EQT35-UE Code Onset Dates Condition S tatus SNOMED Code Problem Type 2 diabetes mellitus without complications E11 .9 Active 32798000 Problem Diabetes 250.00 Active 82159320 Problem Unspecified cardiac dysrhythmia 427.9 Active 225115177 Problem Costochondritis 733.6 Active 6410 9004 ALLERGIES Unknown Allergies SOCIAL HISTORY No smoking Hx information available PLAN OF CARE VITAL SIGNS MEDICATIONS Medication Instructions Dosage Frequency Start Date End Date Duration S tatus Blood Glucose Test Strip Blood Glucose test blood sugar Sep, Active RESULTS No Results PROCEDURES No Known procedures IMMUNIZATIONS No Known Immunizations
--- OUTSIDE RECORDS SUMMARY | 2019-11-01 20:33 | XMS REPORT ---
Author Author Nyasia BRAND Organization [facility] Address [address] [place] [address] Care Team Providers Care Attorney Recruiter Name Role Phone ADRIANA BRAND Unavailable PROBLEMS Type Condition ICD9-CM Code [id number] Code Onset Dates Condition S tatus SNOMED Code Problem Grief reaction F43.21 Active 24810 5009 Problem Essential hypertension I10 Active 32867795 Problem Unspecified cardiac dysrhythmia 427.9 Active 868383186 Problem Costochondritis 733.6 Active 6410 9004 Problem Type 2 diabetes mellitus without complications E11 .9 Active 63804742 Problem Diabetes 250.00 Active 19416719 ALLERGIES Substance Reaction Event Type Date Status Shrimp (Diagnostic) anaphylaxis Drug Allergy Jun, Active Metformin HCl Black outs Drug Allergy Jun, Active Glucotrol XL headache Drug Allergy Jun, Active Doxycycline Hyclate nausea Drug Allergy Jun, Active ENCOUNTERS Encounter Location Date Diagnosis [place] [address] [address] Jun, Acute nasopharyngitis J00 [place] [address] [address] May, Encounter for immunization Z 23 [facility] [address] [place] [id number] [place] [address] Apr, [place] [address] [place] [id number] [place] [address] Apr, Type 2 diabetes mellitus wit hout complications E11.9 [facility] [address] [address] Apr, Type 2 diabetes mellitus wit hout complications E11.9 ; Grief reaction F43.21 and Essential hypertension I10 [facility] [address] [place] [address] Mar, Type 2 diabetes mellitus wit hout complications E11.9 [facility] [address] [id number] [address] [place] [address] Mar, Type 2 diabetes mellitus wit hout complications E11.9 [facility] [address] [id number] [address] [place] [address] Feb, [facility] [address] [id number] [address] [place] [address] Jan, [facility] [address] [id number] [address] [place] [address] Nov, Type 2 diabetes mellitus wit hout complications E11.9 [facility] [address] [id number] [address] [place] [address] Oct, [facility] [address] [id number] [address] [place] [address] Oct, Labia irritation N90.89 [facility] [address] [id number] [address] [place] [address] Sep, [facility] [address] [id number] [address] [place] [address] Sep, [facility] [address] [id number] [address] [place] [address] Sep, [facility] [address] [id number] [address] [place] [address] Aug, [facility] [address] [id number] [address] [place] [address] Jul, [facility] [address] [id number] [address] [place] [address] Jul, [facility] [address] [id number] [address] [place] [address] Mar, Type 2 diabetes mellitus wit hout complications E11.9 ; Acute pain of right knee M25.561 and Essential hypertension I10 [facility] [place] [facility] [address] [place] [id number] [place] [address] Mar, [place] [address] [address] Mar, Dysuria R30.0 [place] [address] [address] December, [place] [address] [address] Nov, [place] [address] [address] Nov, Dental examination Z01.20 [place] [address] [address] Nov, Dental examination Z01.20 [place] [address] [address] Nov, Non-intractable vomiting wit h nausea, unspecified vomiting type R11.2 ; Arthralgia, unspecified joint M25.50 ; Fever, unspecified fever cause R50.9 ; Type 2 diabetes mellitus without complications E11.9 and Tooth pain K08.89 [place] [address] [place] [id number] [address] [place] [address] Nov, Type 2 diabetes mellitus wit hout complications E11.9 [place] [address] [place] [id number] [place] [address] Nov, Type 2 diabetes mellitus wit hout complications E11.9 and Bronchitis J40 [place] [address] [place] [id number] [place] [address] Oct, Type 2 diabetes mellitus wit hout complications E11.9 [place] [address] [place] [id number] [address] [place] [address] Jul, [place] [address] [address] Jul, Dysuria R30.0 ; Hematuria R3 1.9 and Vaginal pain R10.2 [facility] [address] [id number] [address] [place] [address] Jul, Dysuria R30.0 ; Vaginal disc harge N89.8 and Low back strain, initial encounter S39.012A [facility] [address] [id number] [address] [place] [address] Jun, Bacterial conjunctivitis of right eye H10.9 ; Sore throat J02.9 and Acute non-recurrent maxillary sinusitis J01.00 [facility] [address] [id number] [address] [place] [address] Jun, [facility] [address] [id number] [address] [place] [address] May, [facility] [address] [id number] [address] [place] [address] Apr, [facility] [address] [id number] [address] [place] [address] Apr, [facility] [address] [id number] [address] [place] [address] Apr, [facility] [address] [id number] [address] [place] [address] Apr, Type 2 diabetes mellitus wit hout complications E11.9 [facility] [address] [id number] [address] [place] [address] Mar, [facility] [address] [id number] [address] [place] [address] Feb, Bronchitis J40 [facility] [address] [id number] [address] [place] [address] Feb, Bronchitis J40 [facility] [address] [id number] [address] [place] [address] Feb, Type 2 diabetes mellitus wit hout complications E11.9 [facility] [address] [id number] [address] [place] [address] 11 Feb, 2016 [facility] [address] [facility] [id number] [address] [place] [address] Feb, [facility] [address] [facility] [id number] [address] [place] [address] Feb, Type 2 diabetes mellitus wit hout complications E11.9 and Dysuria R30.0 [facility] [address] [facility] [id number] [address] [place] [address] Jan, Type 2 diabetes mellitus wit hout complications E11.9 [facility] [address] [facility] [id number] [address] [place] [address] Jan, Type 2 diabetes mellitus wit hout complications E11.9 [facility] [address] [place] [id number] [place] [address] December, Type 2 diabetes mellitus wit hout complications E11.9 [facility] [address] [place] [id number] [address] [place] [address] Nov, Type 2 diabetes mellitus wit hout complications E11.9 [facility] [address] [place] [id number] [place] [phone] Oct, Type 2 diabetes mellitus wit hout complications E11.9 ; Fever R50.9 ; Myalgia M79.1 and Cough R05 [facility] [id number] [place] [address] 15 Sep, 2015 Dysuria R30.0 and Cystitis N 30.90 [facility] [address] [facility] [id number] [address] [place] [address] 05 Sep, 2015 [facility] [address] [place] [id number] [place] [address] 04 Sep, 2015 [facility] [address] [id number] [address] [place] [id number] 04 Aug, 2015 Dental examination Z01.20 [facility] [address] [place] [id number] [address] [place] [address] Aug, Type 2 diabetes mellitus wit hout complications E11.9 [place] [address] [address] Jul, Dysfunction of left eustachi an tube H69.82 [facility] [address] [place] [id number] [place] [address] Jun, [facility] [address] [address] Jun, Cellulitis L03.90 [place] [address] [address] Jun, [place] [address] [address] Jun, [place] [address] [address] Jun, [place] [address] [address] May, Dermatofibroma of ankle, rig ht D23.71 [place] [address] [address] May, [place] [address] [id number] [address] [place] [address] Apr, Diabetes 250.00 and 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 [place] [address] [place] [id number] [address] [place] [address] Apr, [facility] [address] [place] [id number] [place] [address] Apr, [place] [address] [address] 15 Apr, 2015 Diabetes 250.00 ; Influenza vaccine administered V04.81 and Allergic rhinitis 477.9 [place] [address] [address] Mar, [facility] [address] [id number] [address] [place] [address] Jan, [facility] [address] [id number] [address] [place] [address] Jan, DM w/o complication type II 250.00 [facility] [address] [id number] [address] [place] [address] December, DM w/o complication type II 250.00 ; Calcaneal spur 726.73 ; Vaginitis due to Amanda 112.1 and Onychomycosis 110.1 [facility] [address] [id number] [address] [place] [address] Nov, Amanda infection of genital region 112.2 [facility] [address] [id number] [address] [place] [address] Nov, [facility] [address] [id number] [address] [place] [address] Nov, [facility] [address] [id number] [address] [place] [address] Oct, [facility] [address] [id number] [address] [place] [address] Oct, [facility] [address] [id number] [address] [place] [address] Sep, [facility] [address] [id number] [address] [place] [address] Sep, [facility] [address] [id number] [address] [place] [phone] Jul, [facility] [address] [id number] [address] [place] [address] Jul, [facility] [address] [id number] [address] [place] [address] Jun, [facility] [address] [id number] [address] [place] [address] Jun, [facility] [place] [facility] [address] [id number] [address] [place] [address], [place] [address] Jun, [facility] [place] [facility] [address] [id number] [address] [place] [address], [place] [address] Jun, [facility] [place] [facility] [address] [id number] [address] [place] [address], [place] [address] May, [facility] [place] [facility] [address] [id number] [address] [place] [address], [place] [address] May, [facility] [place] [facility] [address] [id number] [address] [place] [address], [place] [address] May, [facility] [place] [facility] [address] [id number] [address] [place] [address], [place] [address] May, [facility] [place] [facility] [address] [id number] [address] [place] [address], [place] [address] Apr, [facility] [place] [facility] [address] [id number] [address] [place] [address], [place] [address] Apr, [facility] [place] [facility] [address] [id number] [address] [place] [address], [place] [address] Apr, [facility] [place] [facility] [address] [id number] [address] [place] [address], [place] [address] Apr, [facility] [place] [facility] [address] [id number] [address] [place] [address], [place] [address] Mar, [facility] [place] [facility] [address] [id number] [address] [place] [address], [place] [address] Mar, [facility] [place] [facility] [address] [id number] [address] [place] [address], [place] [address] Mar, [facility] [place] [facility] [address] [id number] [address] [place] [address], [place] [address] Mar, [facility] [place] [facility] [address] [id number] [address] [place] [address], [place] [address] Mar, [facility] [place] [facility] [address] [id number] [facility] [address] Mar, [facility] [address] [id number] [address] [place] [address], [place] [address] Mar, [facility] [address] [id number] [address] [place] [address], [place] [address] Mar, [facility] [address] [id number] [address] [place] [address], [place] [address] Mar, [facility] [address] [id number] [address] [place] [address], [place] [address] Mar, [facility] [address] [id number] [address] [place] [address], [place] [address] Mar, [facility] [address] [id number] [address] [place] [address], [place] [address] Mar, [facility] [address] [id number] [address] [place] [address], [place] [address] Feb, [facility] [address] [id number] [address] [place] [address], [place] [address] Feb, [facility] [address] [id number] [address] [place] [address], [place] [address] Jan, [facility] [address] [id number] [address] [place] [address], [place] [address] Jan, [facility] [address] [id number] [address] [place] [address], [place] [address] Jan, [facility] [address] [id number] [address] [place] [address], [place] [address] Jan, [facility] [address] [id number] [address] [place] [address], [place] [address] December, [facility] [address] [id number] [address] [place] [address], [place] [address] December, [facility] [address] [id number] [address] [place] [address], [place] [address] December, [facility] [address] [id number] [address] [place] [address], [place] [address] December, [facility] [address] [id number] [address] [place] [address], [place] [address] Nov, [facility] [address] [id number] [address] [place] [address], [place] [address] Nov, [facility] [address] [id number] [address] [place] [address], [place] [address] Nov, [facility] [address] [id number] [address] [place] [address], [place] [address] Nov, [facility] [address] [id number] [address] [place] [address], [place] [address] Nov, [facility] [address] [id number] [address] [place] [address], [place] [address] Nov, [facility] [address] [id number] [address] [place] [address], [place] [address] Nov, [facility] [address] [id number] [address] [place] [address], [place] [address] Oct, [facility] [address] [id number] [address] [place] [address], [place] [address] Oct, [facility] [address] [id number] [address] [place] [address], [place] [address] Oct, [facility] [place] [facility] [address] [id number] [address] [place] [address], [place] [address] Oct, [facility] [place] [facility] [address] [id number] [address] [place] [address], [place] [address] Oct, [facility] [place] [facility] [address] [id number] [address] [place] [address], [place] [address] Oct, [facility] [place] [facility] [address] [id number] [address] [place] [address], [place] [address] Oct, [facility] [place] [facility] [address] [id number] [address] [place] [address], [place] [address] 07 Sep, 2013 [facility] [address] [id number] [address] [place] [address], [place] [address] 07 Sep, 2013 [facility] [address] [id number] [address] [place] [address], [place] [address] 03 Sep, 2013 [facility] [address] [id number] [address] [place] [address], [place] [address] Sep, [facility] [address] [id number] [address] [place] [address], [place] [address] Aug, [facility] [address] [id number] [address] [place] [address], [place] [address] Aug, [facility] [address] [id number] [address] [place] [address], [place] [address] Aug, [facility] [address] [id number] [address] [place] [address], [place] [address] Aug, [facility] [address] [id number] [address] [place] [address], [place] [address] Jul, [facility] [address] [id number] [address] [place] [address], [place] [address] Jul, [facility] [address] [id number] [address] [place] [address], [place] [address] Apr, [facility] [address] [id number] [address] [place] [address], [place] [address] Apr, [facility] [address] [id number] [address] [place] [address], [place] [address] Mar, [facility] [address] [id number] [address] [place] [address], [place] [address] Mar, [facility] [address] [id number] [address] [place] [address], [place] [address] Mar, [facility] [address] [id number] [address] [place] [address], [place] [address] Mar, [facility] [address] [id number] [address] [place] [address], [place] [address] Mar, [facility] [address] [id number] [address] [place] [address], [place] [address] Mar, [facility] [address] [id number] [address] [place] [address], [place] [address] Mar, [facility] [address] [id number] [address] [place] [address], [place] [address] Mar, [facility] [address] [id number] [address] [place] [address], [place] [address] Mar, [facility] [address] [id number] [address] [place] [address], [place] [address] Mar, [facility] [address] [id number] [address] [place] [address], [place] [address] Feb, [facility] [address] [id number] [address] [place] [address], [place] [address] Feb, [facility] [address] [id number] [address] [place] [address], [place] [address] Feb, [facility] [address] [id number] [address] [place] [address], [place] [address] Feb, [facility] [address] [id number] [address] [place] [address], [place] [address] Jan, [facility] [address] [id number] [address] [place] [address], [place] [address] 25 Nov, 2012 [facility] [address] [id number] [address] [place] [address], [place] [address] 16 Nov, 2012 [facility] [address] [id number] [address] [place] [address], [place] [address] 15 Nov, 2012 [facility] [address] [id number] [address] [place] [address], [place] [address] 11 Nov, 2012 [facility] [address] [id number] [address] [place] [address], [place] [address] Oct, [facility] [address] [id number] [address] [place] [address], [place] [address] Sep, [facility] [address] [id number] [address] [place] [address], [place] [address] Sep, [facility] [address] [id number] [address] [place] [address], [place] [address] Aug, [facility] [address] [id number] [address] [place] [address], [place] [address] Jul, [facility] [address] [id number] [address] [place] [address], [place] [address] Jul, [facility] [address] [id number] [address] [place] [address], [place] [address] May, [facility] [address] [id number] [address] [place] [address], [place] [address] May, [facility] [address] [id number] [address] [place] [address], [place] [address] May, [facility] [address] [id number] [address] [place] [address], [place] [address] May, [facility] [address] [id number] [address] [place] [address], [place] [address] Apr, [facility] [address] [id number] [address] [place] [address], [place] [address] Mar, [facility] [address] [id number] [address] [place] [address], [place] [address] Mar, [facility] [address] [id number] [address] [place] [address], [place] [address] Mar, [facility] [address] [id number] [address] [place] [address], [place] [address] Mar, [facility] [address] [id number] [address] [place] [address], [place] [address] Mar, [facility] [address] [id number] [address] [place] [address], [place] [address] Mar, [facility] [address] [id number] [address] [place] [address], [place] [address] Mar, [facility] [address] [id number] [address] [place] [address], [place] [address] Mar, [facility] [address] [id number] [address] [place] [address], [place] [address] Feb, [facility] [address] [id number] [address] [place] [address], [place] [address] Feb, [facility] [address] [id number] [address] [place] [address], [place] [address] Jan, [facility] [address] [id number] [address] [place] [address], [place] [address] December, [facility] [address] [id number] [address] [place] [address], [place] [address] December, [facility] [address] [id number] [address] [place] [address], [place] [address] Nov, [facility] [address] [id number] [address] [place] [address], [place] [address] Nov, [facility] [address] [id number] [address] [place] [address], [place] [address] Nov, [facility] [address] [id number] [address] [place] [address], [place] [address] Nov, [facility] [address] [id number] [address] [place] [address], [place] [address] Oct, [facility] [address] [id number] [address] [place] [address], [place] [address] 29 Sep, 2011 [facility] [address] [id number] [address] [place] [address], [place] [address] Sep, [facility] [address] [id number] [address] [place] [address], [place] [address] 17 Sep, 2011 [facility] [address] [id number] [address] [place] [address], [place] [address] 17 Sep, 2011 [facility] [address] [address] [id number] [address] [place] [address], [place] [address] 16 Sep, 2011 [facility] [address] [id number] [address] [place] [address], [place] [address] 16 Sep, 2011 [facility] [address] [id number] [address] [place] [address], [place] [address] 15 Sep, 2011 [facility] [address] [id number] [address] [place] [address], [place] [address] 15 Sep, 2011 [facility] [address] [id number] [address] [place] [address], [place] [address] Aug, [facility] [address] [id number] [address] [place] [address], [place] [address] Jul, [facility] [address] [id number] [address] [place] [address], [place] [address] Jul, [facility] [address] [id number] [address] [place] [address], [place] [address] Jul, [facility] [address] [id number] [address] [place] [address], [place] [address] Jun, [facility] [address] [id number] [address] [place] [address], [place] [address] Jul, [facility] [address] [id number] [address] [place] [address], [place] [address] Jul, [facility] [address] [id number] [address] [place] [address], [place] [address] Jul, [facility] [address] [id number] [address] [place] [address], [place] [address] Jul, [facility] [address] [id number] [address] [place] [address], [place] [address] Jul, [facility] [address] [id number] [address] [place] [phone] May, [facility] [address] [id number] [address] [place] [phone] May, [facility] [address] [id number] [address] [place] [phone] May, [facility] [address] [id number] [address] [place] [phone] Apr, [facility] [address] [id number] [address] [place] [id number] Jun, [facility] [address] [id number] [address] [place] [id number] Jun, [facility] [address] [facility] [id number] [address] [place] [phone] May, [facility] [address] [facility] [id number] [address] [place] [phone] Jan, IMMUNIZATIONS No Known Immunizations SOCIAL HISTORY Never Assessed REASON FOR VISIT Sore throat-karenn,RMA, pt complaining of a sore throat and coughing up green p hlegm and both eyes are matted shut in the morining. started about a week ago PLAN OF CARE Activity Details Follow Up Reg appt Reason: VITAL SIGNS Height 63 in 2018-06-23 Weight 189.4 lbs 2018-06-23 Temperature 97.7 degrees Fahrenheit 2018-06-23 Heart Rate 98 bpm 2018-06-23 Respiratory Rate 18 2018-06-23 Oximetry on room air:98 % 2018-06-23 BMI 33.55 kg/m2 2018-06-23 Blood pressure systolic 120 mmHg 2018-06-23 Blood pressure diastolic 76 mmHg 2018-06-23 MEDICATIONS Medication Instructions Dosage Frequency Start Date End Date Duration S robert Worrellity 1.5 MG/0.5ML Subcutaneous once weekly Inject 0.5ml 90 days Active GlipiZIDE ER 10 mg Orally 2 times a day 1 tablet 12h 90 days Active Atenolol 50 mg Orally Once a day 1 tablet 24h 90 day s Active SudoGest 60 mg Orally every 6 hrs 1 tablet as needed 6h Jun, 8 5 days Active Acyclovir 400 mg orally 3 times a day one tab 8h Oct, 10 days Active Blood Glucose Test Strip Contour Next 3 times a day test 3 times pe r day 8h Sep, Active Blood Glucose Monitor System w/Device Contour Next 3 times a day test 3 times per day 8h Sep, Active Januvia 100 mg Orally Once a day 1 tablet 24h 90 day s Active RESULTS No Results PROCEDURES No Known [...] History tumor removal left leg Hospitalization History 03/2012
--- OUTSIDE RECORDS SUMMARY | 2019-11-01 20:33 | XMS REPORT ---
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
--- OUTSIDE RECORDS SUMMARY | 2019-11-01 20:33 | XMS REPORT ---
Author Author Nyasia RUIZ Organization [facility] Address [address] [place] [address] Care Team Providers Care Social Services Coordinator Name Role Phone IRVIN RUIZ Unavailable PROBLEMS Type Condition ICD9-CM Code FZX08-CA Code Onset Dates Condition S tatus SNOMED Code Problem Essential hypertension I10 Active 52868065 Problem Type 2 diabetes mellitus without complications E11 .9 Active 35211581 Problem Costochondritis 733.6 Active 6410 9004 Problem Diabetes 250.00 Active 92565264 Problem Unspecified cardiac dysrhythmia 427.9 Active [id number] ALLERGIES No Information ENCOUNTERS Encounter Location Date Diagnosis [facility] [address] [id number] [address] [place] [address] Nov, Type 2 diabetes mellitus wit hout complications E11.9 [facility] [address] [facility] [id number] [address] [place] [phone] Oct, [facility] [address] [id number] [address] [place] [address] Oct, Labia irritation N90.89 [facility] [address] [id number] [address] [place] [address] Sep, [facility] [address] [facility] [id number] [address] [place] [address] Sep, [facility] [address] [facility] [id number] [address] [place] [address] Sep, [facility] [address] [id number] [address] [place] [address] Aug, [facility] [address] [id number] [address] [place] [address] Jul, [place] [address] [address] Jul, [place] [address] [address] Mar, Type 2 diabetes mellitus wit hout complications E11.9 ; Acute pain of right knee M25.561 and Essential hypertension I10 [place] [address] [address] Mar, [place] [address] [address] Mar, Dysuria R30.0 [place] [address] [address] December, [place] [address] [address] Nov, [place] [address] [address] Nov, Dental examination Z01.20 [place] [address] [address] Nov, Dental examination Z01.20 [place] [address] [address] Nov, Non-intractable vomiting wit h nausea, unspecified vomiting type R11.2 ; Arthralgia, unspecified joint M25.50 ; Fever, unspecified fever cause R50.9 ; Type 2 diabetes mellitus without complications E11.9 and Tooth pain K08.89 [place] [address] [address] Nov, Type 2 diabetes mellitus wit hout complications E11.9 [place] [address] [address] Nov, Type 2 diabetes mellitus wit hout complications E11.9 and Bronchitis J40 [place] [address] [address] Oct, Type 2 diabetes mellitus wit hout complications E11.9 [facility] [address] [id number] [address] [place] [address] Jul, [facility] [address] [id number] [address] [place] [address] Jul, Dysuria R30.0 ; Hematuria R3 1.9 and Vaginal pain R10.2 [facility] [address] [id number] [address] [place] [address] Jul, Dysuria R30.0 ; Vaginal disc harge N89.8 and Low back strain, initial encounter S39.012A [facility] [address] [id number] [address] [place] [address] Jun, Bacterial conjunctivitis of right eye H10.9 ; Sore throat J02.9 and Acute non-recurrent maxillary sinusitis J01.00 [facility] [address] [id number] [address] [place] [address] Jun, [facility] [address] [id number] [address] [place] [address] May, [facility] [address] [id number] [address] [place] [address] Apr, [facility] [address] [id number] [address] [place] [address] Apr, [facility] [address] [id number] [address] [place] [address] Apr, [facility] [address] [id number] [address] [place] [address] Apr, Type 2 diabetes mellitus wit hout complications E11.9 [facility] [address] [id number] [address] [place] [address] Mar, [facility] [address] [id number] [address] [place] [address] Feb, Bronchitis J40 [facility] [address] [id number] [address] [place] [address] Feb, Bronchitis J40 [facility] [address] [id number] [address] [place] [address] Feb, Type 2 diabetes mellitus wit hout complications E11.9 [facility] [address] [id number] [address] [place] [address] Feb, [facility] [address] [id number] [address] [place] [address] Feb, [facility] [address] [id number] [address] [place] [address] Feb, Type 2 diabetes mellitus wit hout complications E11.9 and Dysuria R30.0 [facility] [address] [id number] [address] [place] [address] Jan, Type 2 diabetes mellitus wit hout complications E11.9 [facility] [address] [address] Jan, Type 2 diabetes mellitus wit hout complications E11.9 [facility] [address] [address] December, Type 2 diabetes mellitus wit hout complications E11.9 [facility] [address] [id number] [address] [place] [address] Nov, Type 2 diabetes mellitus wit hout complications E11.9 [facility] [address] [id number] [address] [place] [address] Oct, Type 2 diabetes mellitus wit hout complications E11.9 ; Fever R50.9 ; Myalgia M79.1 and Cough R05 [facility] [address] [id number] [address] [place] [address] 15 Sep, 2015 Dysuria R30.0 and Cystitis N 30.90 [facility] [address] [id number] [address] [place] [phone] 05 Sep, 2015 [place] [address] [id number] [address] [place] [address] Sep, [facility] [address] [id number] [address] [place] [address] [id number] Aug, Dental examination Z01.20 [facility] [address] [facility] [id number] [address] [place] [id number] Aug, Type 2 diabetes mellitus wit hout complications E11.9 [facility] [address] [facility] [id number] [address] [place] [address] Jul, Dysfunction of left eustachi an tube H69.82 [facility] [address] [facility] [id number] [address] [place] [address] Jun, [facility] [address] [facility] [id number] [address] [place] [address] Jun, Cellulitis L03.90 [facility] [address] [facility] [id number] [address] [place] [phone] Jun, [facility] [address] [facility] [id number] [address] [place] [address] Jun, [facility] [address] [id number] [address] [place] [phone] Jun, [facility] [address] [facility] [id number] [address] [place] [address] May, Dermatofibroma of ankle, rig ht D23.71 [facility] [address] [facility] [id number] [address] [place] [address] May, [facility] [address] [facility] [id number] [address] [place] [phone] 29 Apr, 2015 Diabetes 250.00 and 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 [facility] [address] [facility] [id number] [address] [place] [address] Apr, [facility] [address] [id number] [address] [place] [address] Apr, [facility] [address] [facility] [id number] [address] [place] [address] Apr, Diabetes 250.00 ; Influenza vaccine administered V04.81 and Allergic rhinitis 477.9 [facility] [address] [facility] [id number] [address] [place] [address] Mar, [facility] [address] [address] Jan, [facility] [address] [id number] [address] [place] [address] Jan, DM w/o complication type II 250.00 [facility] [id number] [place] [address] December, DM w/o complication type II 250.00 ; Calcaneal spur 726.73 ; Vaginitis due to Amanda 112.1 and Onychomycosis 110.1 [facility] [id number] [place] [address] 30 Nov, 2014 Amanda infection of genital region 112.2 [facility] [id number] [place] [address] 14 Nov, 2014 [facility] [address] [id number] [address] [place] [phone] Nov, [facility] [address] [place] [address] Oct, [facility] [address] [id number] [address] [place] [phone] Oct, [facility] [address] [id number] [place] [phone] Sep, [facility] [address] [id number] [address] [place] [id number] Sep, [facility] [id number] [place] [address] Jul, [facility] [address] [id number] [address] [place] [address], [place] [address] Jul, [facility] [address] [id number] [address] [place] [address], [place] [address] Jun, [facility] [address] [id number] [address] [place] [address], [place] [address] Jun, [facility] [address] [id number] [address] [place] [address], [place] [address] Jun, [facility] [address] [id number] [address] [place] [address], [place] [address] Jun, [facility] [address] [id number] [address] [place] [address], [place] [address] May, [facility] [address] [id number] [address] [place] [address], [place] [address] May, [facility] [address] [id number] [address] [place] [address], [place] [address] May, [facility] [address] [id number] [address] [place] [address], [place] [address] May, [facility] [address] [id number] [address] [place] [address], [place] [address] Apr, [facility] [address] [id number] [address] [place] [address], [place] [address] Apr, [facility] [address] [id number] [address] [place] [address], [place] [address] Apr, [facility] [address] [id number] [address] [place] [address], [place] [address] Apr, [facility] [address] [id number] [address] [place] [address], [place] [address] Mar, [facility] [address] [id number] [address] [place] [address], [place] [address] Mar, [facility] [address] [id number] [address] [place] [address], [place] [address] Mar, [facility] [address] [id number] [facility] [place] [address] Mar, [facility] [address] [id number] [address] [place] [address], [place] [address] Mar, [facility] [address] [id number] [address] [place] [address], [place] [address] Mar, [facility] [address] [id number] [address] [place] [address], [place] [address] Mar, [facility] [address] [id number] [address] [place] [address], [place] [address] Mar, [facility] [address] [id number] [address] [place] [address], [place] [address] Mar, [facility] [address] [id number] [address] [place] [address], [place] [address] Mar, [facility] [address] [id number] [address] [place] [address], [place] [address] Mar, [facility] [address] [id number] [address] [place] [address], [place] [address] Mar, [facility] [address] [id number] [address] [place] [address], [place] [address] Feb, [facility] [address] [id number] [address] [place] [address], [place] [address] Feb, [facility] [address] [id number] [address] [place] [address], [place] [address] Jan, [facility] [address] [id number] [address] [place] [address], [place] [address] Jan, [facility] [address] [id number] [address] [place] [address], [place] [address] Jan, [facility] [address] [id number] [address] [place] [address], [place] [address] Jan, [facility] [address] [id number] [facility] [place] [address] December, [facility] [address] [id number] [address] [place] [address], [place] [address] December, [facility] [address] [id number] [address] [place] [address], [place] [address] December, [facility] [address] [id number] [address] [place] [address], [place] [address] December, [facility] [address] [id number] [address] [place] [address], [place] [address] Nov, [facility] [address] [id number] [address] [place] [address], [place] [address] Nov, [facility] [address] [id number] [address] [place] [address], [place] [address] Nov, [facility] [address] [id number] [address] [place] [address], [place] [address] Nov, [facility] [address] [id number] [address] [place] [address], [place] [address] Nov, [facility] [address] [id number] [address] [place] [address], [place] [address] Nov, [facility] [address] [id number] [address] [place] [address], [place] [address] Nov, [facility] [address] [id number] [address] [place] [address], [place] [address] Oct, [facility] [address] [id number] [address] [place] [address], [place] [address] 31 Oct, 2013 [facility] [address] [id number] [address] [place] [address], [place] [address] 28 Oct, 2013 [facility] [address] [id number] [address] [place] [address], [place] [address] 13 Oct, 2013 [facility] [address] [id number] [address] [place] [address], [place] [address] Oct, [facility] [address] [id number] [address] [place] [address], [place] [address] 06 Oct, 2013 [facility] [address] [id number] [address] [place] [address], [place] [address] Oct, [facility] [address] [id number] [address] [place] [address], [place] [address] Sep, [facility] [address] [id number] [address] [place] [address], [place] [address] Sep, [facility] [address] [id number] [address] [place] [address], [place] [address] Sep, [facility] [address] [id number] [address] [place] [address], [place] [address] Sep, [facility] [address] [id number] [address] [place] [address], [place] [address] Aug, [facility] [address] [id number] [address] [place] [address], [place] [address] Aug, [facility] [address] [id number] [address] [place] [address], [place] [address] Aug, [facility] [address] [id number] [address] [place] [address], [place] [address] Aug, [facility] [address] [id number] [address] [place] [address], [place] [address] Jul, [facility] [address] [id number] [address] [place] [address] Jul, [facility] [address] [id number] [address] [place] [address], [place] [address] Apr, [facility] [address] [id number] [address] [place] [address], [place] [address] Apr, [facility] [address] [id number] [address] [place] [address], [place] [address] Mar, [facility] [address] [id number] [address] [place] [address], [place] [address] Mar, [facility] [address] [id number] [address] [place] [address], [place] [address] Mar, [facility] [address] [id number] [address] [place] [address], [place] [address] Mar, [facility] [address] [id number] [address] [place] [address], [place] [address] Mar, [facility] [address] [id number] [address] [place] [address], [place] [address] Mar, [facility] [address] [id number] [address] [place] [address], [place] [address] Mar, [facility] [address] [id number] [address] [place] [address], [place] [address] Mar, [facility] [address] [id number] [address] [place] [address], [place] [address] Mar, [facility] [address] [id number] [address] [place] [address], [place] [address] Mar, [facility] [address] [id number] [address] [place] [address], [place] [address] Feb, [facility] [address] [id number] [address] [place] [address], [place] [address] Feb, [facility] [address] [id number] [address] [place] [address], [place] [address] Feb, [facility] [address] [id number] [address] [place] [address], [place] [address] Feb, [facility] [address] [id number] [address] [place] [address], [place] [address] Jan, [facility] [address] [id number] [address] [place] [address], [place] [address] Nov, [facility] [address] [id number] [address] [place] [address], [place] [address] 16 Nov, 2012 [facility] [address] [id number] [address] [place] [address], [place] [address] Nov, [facility] [address] [id number] [address] [place] [address], [place] [address] Nov, [facility] [address] [id number] [address] [place] [address], [place] [address] Oct, [facility] [address] [id number] [address] [place] [address], [place] [address] Sep, [facility] [address] [id number] [address] [place] [address], [place] [address] Sep, [facility] [address] [id number] [address] [place] [address], [place] [address] Aug, [facility] [address] [id number] [address] [place] [address], [place] [address] Jul, [facility] [address] [id number] [address] [place] [address], [place] [address] Jul, [facility] [address] [id number] [address] [place] [address], [place] [address] May, [facility] [address] [id number] [address] [place] [address], [place] [address] May, [facility] [address] [id number] [address] [place] [address], [place] [address] May, [facility] [address] [id number] [address] [place] [address], [place] [address] May, [facility] [address] [id number] [address] [place] [address], [place] [address] Apr, [facility] [address] [id number] [address] [place] [address], [place] [address] Mar, [facility] [address] [id number] [address] [place] [address], [place] [address] Mar, [facility] [address] [id number] [address] [place] [address], [place] [address] Mar, [facility] [address] [id number] [address] [place] [address], [place] [address] Mar, [facility] [address] [id number] [address] [place] [address], [place] [address] Mar, [facility] [address] [id number] [address] [place] [address], [place] [address] Mar, [facility] [address] [id number] [address] [place] [address], [place] [address] Mar, [facility] [address] [id number] [address] [place] [address], [place] [address] Mar, [facility] [address] [id number] [address] [place] [address], [place] [address] Feb, [facility] [address] [id number] [address] [place] [address], [place] [address] Feb, [facility] [address] [id number] [address] [place] [address], [place] [address] Jan, [facility] [address] [id number] [address] [place] [address], [place] [address] December, [facility] [address] [id number] [address] [place] [address], [place] [address] December, [facility] [address] [id number] [address] [place] [address], [place] [address] Nov, [facility] [address] [id number] [address] [place] [address], [place] [address] Nov, [facility] [address] [id number] [address] [place] [address], [place] [address] 18 Nov, 2011 [facility] [address] [id number] [address] [place] [address], [place] [address] Nov, [facility] [address] [id number] [address] [place] [address], [place] [address] Oct, [facility] [address] [id number] [address] [place] [address], [place] [address] 29 Sep, 2011 [facility] [address] [id number] [address] [place] [address], [place] [address] Sep, [facility] [address] [id number] [address] [place] [address], [place] [address] 17 Sep, 2011 [facility] [address] [id number] [address] [place] [address], [place] [address] 17 Sep, 2011 [facility] [address] [id number] [address] [place] [address], [place] [address] 16 Sep, 2011 [facility] [address] [id number] [address] [place] [address], [place] [address] 16 Sep, 2011 [facility] [address] [id number] [address] [place] [address], [place] [address] 15 Sep, 2011 [facility] [address] [id number] [address] [place] [address], [place] [address] 15 Sep, 2011 [facility] [address] [id number] [address] [place] [address], [place] [address] Aug, [facility] [address] [id number] [address] [place] [address], [place] [address] Jul, [facility] [address] [id number] [address] [place] [address], [place] [address] 14 Jul, 2011 [facility] [address] [id number] [address] [place] [address], [place] [address] Jul, [facility] [address] [id number] [address] [place] [address], [place] [address] Jun, [facility] [address] [id number] [address] [place] [address], [place] [address] Jul, [facility] [address] [id number] [address] [place] [address], [place] [address] Jul, [facility] [address] [id number] [address] [place] [phone] Jul, [facility] [address] [id number] [address] [place] [phone] Jul, [facility] [address] [id number] [address] [place] [phone] Jul, [facility] [address] [id number] [address] [place] [phone] May, [facility] [address] [id number] [address] [place] [phone] May, [facility] [address] [id number] [address] [place] [phone] May, [facility] [address] [id number] [address] [place] [phone] Apr, [facility] [address] [id number] [address] [place] [phone] Jun, [facility] [address] [id number] [address] [place] [phone] Jun, [facility] [address] [id number] [address] [place] [phone] May, [facility] [address] [id number] [address] [place] [phone] Jan, IMMUNIZATIONS No Known Immunizations SOCIAL HISTORY Never Assessed REASON FOR VISIT PALS PLAN OF CARE VITAL SIGNS MEDICATIONS Medication Instructions Dosage Frequency Start Date End Date Duration S tatus Januvia 100 mg Orally Once a day [...]
--- NOTE | 2019-11-01 20:44 | Diagnostic Imaging Report ---
INDICATION: Right knee pain. FINDINGS: There are mild osteoarthritic changes present within the knee with mild joint space loss within the medial compartment and small patellar osteophytes. There are no findings of an acute fracture or malalignment. There is no joint effusion. IMPRESSION: Mild osteoarthritic changes of the medial and patellofemoral compartments of the right knee. No acute process evident. Dictated by: Dictated on workstation # [id number]
[2019-11-01] MEDS ORDERED: RX-NAPROXEN (NAPROSYN) 250 MG TAB PPK#4 PO STA (21:07)
--- NOTE | 2019-11-01 21:09 | ED Lower Extremity ---
General Chief Complaint: Lower Extremity Stated Complaint: R KNEE PAIN Nursing Triage Note: pt to triage with complaint of right knee pain. states she was pushing a car today and heard a pop. states has diffiuclty walking and tingling in her right foot. Nursing Sepsis Screen: No Definite Risk Source: patient History of Present Illness Date Seen by Provider: Nov 01, 2019 Time Seen by Provider: 20:25 Initial Comments PT ARRIVES VIA POV FROM HOME STATES THAT AROUND [phone] TONIGHT, SHE WAS HELPING SOMEONE PUSH A CAR INTO A GARAGE, AND HER RIGHT KNEE POPPED. HAS HAD SLIGHT PAIN WITH MOVEMENT OF RIGHT KNEE, BUT INCREASED PAIN WITH WEIGHT BEARING HAS NOT TAKEN ANYTHING FOR PAIN , BUT DID PUT ICE ON IT. STATES SOMETIMES SHE HAS A LITTLE BIT OF TINGLING IN HER RIGHT FOOT,BUT NOT NOW NO PRIOR PROBLEMS WITH THIS KNEE NO OTHER INJURIES LMP--ENDED 4 DAYS AGO. NORMAL. S/P BTL. PCP: KAYLENE RUIZ Allergies and Home Medications Allergies Coded Allergies: metformin (Unverified Adverse Reaction, Severe, HEADACHES, 11/04/13) Home Medications Atenolol 25 Mg Tablet, 50 MG PO DAILY, (Reported) Glipizide 5 Mg Tab, 2.5 MG PO DAILY@0630, (Reported) Naproxen 500 Mg Tablet, 500 MG PO BID Prescribed by: VU EGAN on 11/01/192113 Promethazine Hcl 25 Mg Tab, 1 TAB PO TID PRN for NAUSEA/VOMITING Prescribed by: CHANDLER PARRA on 02/16/15 2230 Sitagliptin Phosphate 100 Mg Tablet, 1 EACH PO DAILY, (Reported) Patient Home Medication List Home Medication List Reviewed: Yes Review of Systems Constitutional: no symptoms reported LMP: Oct 24, 2019 Control/STD Prophylaxis: Other (BTL) Musculoskeletal: see HPI Skin: no symptoms reported Psychiatric/Neurological: See HPI Past [id number] Hx Past Med/Social Hx: Reviewed and Corrections made Patient Social History Alcohol Use: Rarely Uses Recreational Drug Use: No Smoking Status: Never a Smoker Recent Foreign Travel: No Contact w/Someone Who Travel: No Recent Infectious Disease Expo: No Immunizations Up To Date Tetanus Booster (TDap): Unknown PED Vaccines UTD: Yes Date of Influenza Vaccine: Jun 11, 2013 Past Medical History Surgeries: Yes (D&C) Tubal Ligation Respiratory: Yes Chronic Bronchitis Cardiac: Yes Heart Murmur, High Cholesterol Neurological: No 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 oz. [id number]; 35.00 BMI Method:Stated General Appearance: WD/WN, no apparent distress, other (DOES NOT APPEAR TO BE IN ANY DISCOMFORT OR DISTRESS, TEXTING THROUGHOUT ER STAY) Hips: right hip normal inspection Legs: right leg normal inspection Knees: right knee bone tenderness, right knee soft tissue tenderness, right knee other (LIMITED ROM DUE TO PAIN, LIMITED EXAM FOR LIGAMENT LAXITY DUE TO PT DISCOMFORT. ) Ankles: right ankle normal inspection Feet: right foot normal inspection Neurologic/Tendon: normal sensation, normal motor functions, normal tendon functions Neurologic/Psychiatric: galvanizer II-XII nml as tested, no motor/sensory deficits, alert, normal mood/affect, oriented x 3 Skin: normal color, warm/dry; No ecchymosis; tattoos/piercings (EXTENSIVE TATTOOS), other (NO EXTERNAL EVIDENCE OF TRAUMA) Procedures/Interventions Splinting and Joint Reduction : Zander wrap: Yes Immobilizers: 19 inch Knee Progress/Results/Core Measures Results/Orders My Orders Orders - VU EGAN DO Knee, Right, 3 Views (11/01/19 20:27) Zander Bandage (11/01/19 21:07) Knee Immobilizer (11/01/19 21:07) Rx-Naproxen (Rx-Naprosyn) (11/01/19 21:07) Vital Signs/I&O 11/01/19 20:22 Temp 35.6 Pulse 91 Resp 20 B/P (MAP) 135/84 (101) Pulse Ox 97 O2 Delivery Room Air Blood Pressure Mean: 101 Diagnostic Imaging Comments XRAYS RIGHT KNEE--ARTHRITIC CHANGES, OTHERWISE NO ACUTE PROCESS, PER RADIOLOGIST REPORT AT 2108 Reviewed: Reviewed by Me Departure Impression Primary Impression: Right knee sprain Disposition: HOME, SELF-CARE Condition: Stable Departure-Patient Inst. Referrals: RLYAN COTA DO (PCP) Primary Care Physician IRVIN RUIZ (Family) Primary Care Physician Patient Instructions: Knee Sprain (DC) Add. Discharge Instructions: ZANDER WRAP AND KNEE IMMOBILIZER NEEDED FOR PAIN ICE TO AREA AT 20 MINUTE INTERVALS ELEVATE MUCH POSSIBLE FOLLOW UP WITH DR. RAMÍREZ OR DR. CHAVIS IN 7-10 DAYS IF NO BETTER All discharge instructions reviewed with patient and/or family. Voiced understanding. Scripts Naproxen (Naprosyn) 500 Mg Tablet 500 MG PO BID, #30 TAB 0 Refills Prov: VU EGAN DO 11/01/19 VU EGAN DO Nov 01, 2019 21:09
[2019-11-01] MEDS ORDERED: NAPR-1071 PO (21:14)
[2019-11-01 21:37] VITALS: BP 135/84
== END 2019-11-01 21:37 | disposition home or self-care (01) ==
LOC: EDUNIT# 20:16 → ER 20:18
DX: S83.91XA Sprain of unspecified site of right knee, initial encounter (principal); X50.9XXA Other and unspecified overexertion or strenuous movements or postures, initial encounter; M17.11 Unilateral primary osteoarthritis, right knee; R01.1 Cardiac murmur, unspecified; E78.00 Pure hypercholesterolemia, unspecified; E11.9 Type 2 diabetes mellitus without complications; Z79.84 Long term (current) use of oral hypoglycemic drugs; Z79.899 Other long term (current) drug therapy
CPT/HCPCS: 73562

== ENCOUNTER → 2021-03-21 | Outpatient (CLI) | payer OTHER ==
[~2021-03-21] MED LIST changes: +CATHETER FLUSH 10 ML SYR IV PRN; +NAPR-1071 PO
[2021-03-21 13:51] VITALS: BP 123/68
[2021-03-21 13:55] VITALS: BP 181/63
--- NOTE | 2021-03-21 17:20 | Cardiology Stress Test Report ---
Stress Test Report Date of Procedure/Referring: Date of Procedure: Mar 21, 2021 PCP Clayton Boudreaux MD Admitting Physician Portia Marie DO Indications: HTN Baseline Heart Rate: 73 Baseline Blood Pressure: Blood Pressure Systolic: 181 Blood Pressure Diastolic: 63 Vital Signs Date Time Temp Pulse Resp B/P (MAP) Pulse Ox O2 Delivery O2 Flow Rate FiO2 03/21/21 13:51 99 18 123/68 (86) 98 Room Air Baseline Vital Signs Vital Signs Date Time Temp Pulse Resp B/P (MAP) Pulse Ox O2 Delivery O2 Flow Rate FiO2 03/21/21 13:51 99 18 123/68 (86) 98 Room Air Baseline EKG: Baseline EKG: NSR Summary: After explaining the procedure and details to the patient, she signed the consent and was brought to the stress nuclear laboratory. Patient exercised on standard Jose protocol, EKG, heart rate and blood pressure were monitored continuously, resting and stress doses of radio tracer were injected, imaging was acquired and reviewed in the short axis, horizontal long axis and vertical long axis views Patient was able to exercise for a total of 5.14 minutes on Jose protocol, METs 7.1 Maximum heart rate 154 Maximum blood pressure 196/62 Stress EKG, Minimal nondiagnostic changes Recovery EKG, Return to baseline TID: 0.91 SSS: 0 SDS: 0 EF: 69 Conclusion: 1. Fair exercise tolerance for 5 minutes 14 seconds on standard Jose protocol total of 7.1 METS achieving 90% of maximal expected heart rate 2. Appropriate heart rate response to exercise with hypertensive response to exercise with peak blood pressure 198/62 return to baseline during recovery 3. Nondiagnostic EKG changes with exercise return to baseline during recovery 4. No significant ischemia or infarction on SPECT images 5. Normal left ventricular size, EF 69%. CLAYTON BOUDREAUX MD Mar 21, 2021 17:20
== END ==
LOC: CARD 10:06
PROVIDERS: ATTEND Internal Medicine Cardiovascular Disease
DX: I35.1 Nonrheumatic aortic (valve) insufficiency (principal); I25.10 Atherosclerotic heart disease of native coronary artery without angina pectoris; I10 Essential (primary) hypertension
CPT/HCPCS: 78452; 93017; 93306; A9502

== ENCOUNTER 2021-08-17 10:04 | Outpatient (CLI) | payer OTHER ==
[~2021-08-17] VITALS: Ht 160 cm; Wt 90.9 kg
[~2021-08-17 10:04] MED LIST changes: -CATHETER FLUSH 10 ML SYR IV PRN
[2021-08-17] MEDS ORDERED: EPINEPHrine INJECTION 1 MG/ML AMP IM PRN (10:30)
[2021-08-17] MEDS ORDERED: ONDANSETRON 4 MG/2 ML (SDV) Z0FRAN IV PRN (10:30)
[2021-08-17] MEDS ORDERED: ACETAMINOPHEN 500 MG TAB (TYLENOL) PO PRN (10:30)
[2021-08-17] MEDS ORDERED: SOTROVIMAB 500 MG/NS 100 ML IVPB IV ONE ×2 (10:30)
[2021-08-17] MEDS ORDERED: diphenhydrAMINE 50 MG/ML INJ (BENADRYL) IV PRN (10:30)
[2021-08-17 10:35] VITALS: BP 121/57
== END 2021-08-17 12:10 | disposition home or self-care (01) ==
LOC: INFUSION 10:04
PROVIDERS: ATTEND Nurse Practitioner
DX: U07.1 COVID-19 (principal); E11.9 Type 2 diabetes mellitus without complications

== ENCOUNTER → 2022-12-05 | Outpatient (CLI) | payer OTHER ==
--- NOTE | 2022-12-05 10:10 | Diagnostic Imaging Report ---
PROCEDURE: MRI right joint upper extremity without contrast. TECHNIQUE: Multiplanar, multisequence non contrast-enhanced MRI of the right upper extremity was accomplished. INDICATION: Chronic shoulder pain. EXAMINATION: Right shoulder MRI without contrast 12/05/2022. . FINDINGS: There is a focal tear along the posterior supraspinatus tendon possibly anterior infraspinatus tendon, likely full-thickness in nature. There is no retraction. Partial-thickness articular-sided tear extends posteriorly into the remaining infraspinatus tendon. The anterior supraspinatus tendon is intact. The subscapularis tendon is intact. The long head of the biceps tendon is intact and lies in the bicipital groove. The labrum grossly unremarkable on this noncontrast examination. There is narrowing, spurring and edema at the acromioclavicular joint. Minimal underlying fluid likely due to mild bursitis. Muscle volume is preserved. Visualized axilla unremarkable. IMPRESSION: 1. Suspected full-thickness non-retracted tear of the posterior supraspinatus/anterior infraspinatus tendons. Partial-thickness articular-sided tear of the remaining infraspinatus tendon. 2. Subscapularis tendon and biceps tendon intact. 3. Labrum grossly unremarkable. 4. Findings of mild bursitis along the subdeltoid subacromial bursa. Dictated by: Dictated on workstation # [id number]
== END ==
LOC: RAD 07:38
PROVIDERS: ATTEND Nurse Practitioner
DX: M75.101 Unspecified rotator cuff tear or rupture of right shoulder, not specified as traumatic (principal)
CPT/HCPCS: 73221

== ENCOUNTER → 2022-12-24 | Outpatient (CLI) | payer OTHER | LOC: ORTHO 11:03 | PROVIDERS: ATTEND Orthopaedic Surgery | DX: M75.121 Complete rotator cuff tear or rupture of right shoulder, not specified as traumatic (principal); I10 Essential (primary) hypertension; E78.2 Mixed hyperlipidemia | CPT/HCPCS: 99203 ==

== ENCOUNTER 2023-01-24 05:31 | Outpatient (CLI) | payer SELFPAY ==
[~2023-01-24] VITALS: Ht 160 cm; Wt 74.9 kg
== END 2023-01-27 09:47 | disposition home or self-care (01) ==
LOC: PREOP 05:31
PROVIDERS: ATTEND Orthopaedic Surgery
DX: Z01.818 Encounter for other preprocedural examination (principal)

== ENCOUNTER 2023-01-31 05:57 | Day surgery (SDC) | payer OTHER ==
[2023-01-31] VITALS (12 sets, daily range): BP systolic 94–139; BP diastolic 56–80
[~2023-01-31] VITALS: Ht 160 cm; Wt 74.9 kg
[2023-01-31] MEDS ORDERED: ceFAZolin INJECTION 2,000 MG in NS (IVPB) 50 ML IV ONE (06:15)
[2023-01-31] MEDS ORDERED: ceFAZolin INJECTION 2,000 MG ONE (06:38)
[2023-01-31] MEDS ORDERED: NS (IVPB) 50 ML ONE (06:39)
[2023-01-31] MEDS: LACTATED RINGERS 1,000 ML IV PRN ×2 (06:43→07:53)
[2023-01-31] MEDS ORDERED: EPINEPHrine INJECTION 1 MG/ML AMP ONE (06:48)
[2023-01-31] MEDS ORDERED: LIDOCAINE PF 2% 5 ML (XYLOCAINE) VIAL ONE (06:55)
[2023-01-31] MEDS ORDERED: ROPIVACAINE 5MG/ML 30ML VIAL ONE (06:55)
[2023-01-31] MEDS ORDERED: fentaNYL INJ 100 MCG/2 ML AMP ONE (06:56)
[2023-01-31] MEDS ORDERED: MIDAZOLAM 2 MG/2 ML (VERSED) VIAL ONE (06:56)
[2023-01-31] MEDS ORDERED: CATHETER FLUSH 10 ML SYR IVP PRN (07:00)
[2023-01-31] MEDS ORDERED: EPINEPHrine INJECTION 1 MG/ML AMP IR ONE (08:40)
[2023-01-31] MEDS ORDERED: SEVOFLURANE (ULTANE) 15 ML INHAL SOLN ONE (09:27)
[2023-01-31] MEDS ORDERED: ROCURONIUM 50 MG/5 ML (ZEMURON) VIAL IV ONE (09:28)
[2023-01-31] MEDS ORDERED: proPOfol 200 MG/20 ML (DIPRIVAN) VIAL IV ONE (09:29)
--- NOTE | 2023-01-31 09:36 | Operative Report - Ortho ---
Operative Report Surgeon (s)/Human Relations Professor (s) Surgeon LALO SALINAS MD Human Relations Professor n/a Pre-Operative Diagnosis RIGHT ROTATOR CUFF TEAR Post-Operative Diagnosis same Operative Report Date of Procedure: Jan 31, 2023 Name of Procedure Performed: Right Shoulder Arthroscopy with Rotator Cuff Repair Description & Findings After obtaining informed consent and marking the patient in the preoperative holding area, patient received regional anesthesia. Patient did receive intravenous antibiotics. Patient was taken to the operating room. General anesthesia was induced and the patient was placed in the lateral decubitus position with the right side up. Right upper extremity was prepped and draped in the usual sterile fashion. Surgical timeout was taken. Posterior portal was established. Diagnostic glenohumeral arthroscopy was performed with the following findings: biceps tendon intact, intact articular cartilage, no loose bodies in the axillary pouch, complete tear of the rotator cuff, some degenerative fraying of the labrum. Anterior portal was established and shaver was inserted. The undersurface of the cuff tear and the labrum were debrided to stable borders. Marking suture was placed. Instruments were then taken up into the subacromial space. Lateral portal was established. Shaver was used to remove bursal tissue. Rotator cuff footprint was debrided to bleeding bone. Edge of the rotator cuff was debrided. Two medial row anchors were then placed. Tape sutures from each anchor were passed through the cuff using a needle suture passer and a loop suture. One limb from each medial anchor was then taken to the lateral portal. A punch was used to make a socket for a lateral row anchor. One limb from each medial row anchor were then passed through the lateral row anchor. The anchor was seated by hand and the sutures were tensioned. The second part of the anchor was then deployed by hand. Tails of the suture were cut. A second lateral row anchor was then placed posterior to the first with final 2 limbs of suture; punched, seated by hand, tension, and then deployed. Tails were cut. Rotator cuff repair was viewed from the posterior and lateral portals and demonstrated good approximation and compr ession to the footprint. Instruments were removed. Incisions were closed with 3-0 nylon sutures. Wounds were dressed with xeroform, 4x4s, ABD, and tape. Patient was placed in an abduction sling postoperatively. Anesthesia Type General plus regional Estimated Blood Loss minimal Specimen(s) collected/removed none LALO SALINAS MD Jan 31, 2023 09:36
[2023-01-31] MEDS ORDERED: HYDR-3817 PO (09:48)
[2023-01-31] MEDS ORDERED: ONDANSETRON 4 MG/2 ML (SDV) Z0FRAN ONE (10:01)
--- NOTE | 2023-01-31 10:19 | Anesthesia-General Post-Op ---
General Patient Condition Mental Status/LOC: Same as Preop Cardiovascular: Satisfactory Nausea/Vomiting: Absent Respiratory: Satisfactory Pain: Controlled Complications: Absent Post Op Complications Complications None Follow Up Care/Instructions Patient Instructions None needed. Anesthesia/Patient Condition Patient Condition Patient is doing well, no complaints, stable vital signs, no apparent adverse anesthesia problems. No complications reported per nursing. ASHLY POLLOCK CRNA Jan 31, 2023 10:19
[2023-01-31] MEDS ORDERED: ONDANSETRON 4 MG/2 ML (SDV) Z0FRAN IVP PRN (10:30)
[2023-01-31] MEDS ORDERED: ACETAMINOPHEN 500 MG TAB (TYLENOL) ONE (11:13)
[2023-01-31] MEDS ORDERED: ONDANSETRON 4 MG/2 ML (SDV) Z0FRAN IVP ONE (11:15)
[2023-01-31] MEDS ORDERED: ACETAMINOPHEN 500 MG TAB (TYLENOL) PO ONE (11:15)
== END 2023-01-31 12:13 | disposition home or self-care (01) ==
LOC: SDC 05:57
PROVIDERS: ATTEND Orthopaedic Surgery
DX: M75.121 Complete rotator cuff tear or rupture of right shoulder, not specified as traumatic (principal)
CPT/HCPCS: 82947; 84703; 87081

== ENCOUNTER → 2023-02-13 | Outpatient (CLI) | payer OTHER ==
[~2023-02-13] MED LIST changes: +HYDR-3817 PO
== END ==
LOC: ORTHO 11:52
PROVIDERS: ATTEND Orthopaedic Surgery
DX: Z47.89 Encounter for other orthopedic aftercare (principal)

== ENCOUNTER → 2023-02-27 | Outpatient (CLI) | payer OTHER | LOC: ORTHO 10:22 | PROVIDERS: ATTEND Orthopaedic Surgery | DX: Z98.890 Other specified postprocedural states (principal) ==

== ENCOUNTER → 2023-03-10 | Outpatient (RCR) | payer OTHER | END | disposition home or self-care (01) | PROVIDERS: ATTEND Orthopaedic Surgery | DX: Z09 Encounter for follow-up examination after completed treatment for conditions other than malignant neoplasm (principal); I11.9 Hypertensive heart disease without heart failure; E11.9 Type 2 diabetes mellitus without complications; Z96.611 Presence of right artificial shoulder joint ==

== ENCOUNTER → 2023-03-20 | Outpatient (CLI) | payer OTHER | LOC: ORTHO 09:44 | PROVIDERS: ATTEND Orthopaedic Surgery | DX: Z47.89 Encounter for other orthopedic aftercare (principal) ==

== ENCOUNTER 2023-04-07 09:34 | Outpatient (RCR) | payer OTHER | END 2023-04-10 | disposition home or self-care (01) | PROVIDERS: ATTEND Orthopaedic Surgery | DX: Z09 Encounter for follow-up examination after completed treatment for conditions other than malignant neoplasm (principal); E11.9 Type 2 diabetes mellitus without complications; I11.9 Hypertensive heart disease without heart failure ==

== ENCOUNTER → 2023-04-24 | Outpatient (CLI) | payer SELFPAY | LOC: ORTHO 09:39 | PROVIDERS: ATTEND Orthopaedic Surgery | DX: Z47.89 Encounter for other orthopedic aftercare (principal) ==

== ENCOUNTER → 2023-06-26 | Outpatient (CLI) | payer SELFPAY | LOC: ORTHO 09:38 | PROVIDERS: ATTEND Orthopaedic Surgery | DX: Z98.890 Other specified postprocedural states (principal) | CPT/HCPCS: 99213 ==